=== PATIENT | female | born 1965 ===

== ENCOUNTER 2020-02-20 18:16 | Emergency (ER) | payer OTHER, SELFPAY ==
[2020-02-20 19:16] VITALS: BP 177/105; PULSE 90; RESP 16; TEMP 36.6; O2SAT 100; BMI 33.3
[2020-02-20 20:16] VITALS: BP 161/95; PULSE 84; RESP 18; TEMP 36.9; O2SAT 100
--- NOTE | 2020-02-20 20:29 | PC.NURSE ---
poc obtained per provider request, poc 99, provider notified
--- NOTE | 2020-02-20 20:30 | PC.NURSE ---
patient a&ox3, medicated with ativan per order, vss, patient notified she will be moving to [place] [address] and patient is ok with move, will continue to monitor.
[2020-02-20 20:31] LABS: Glucose, Whole Blood 99 mg/dL (60-115)
[2020-02-20] MEDS: LORazepam 1 MG TABLET PO (20:43)
--- NOTE | 2020-02-20 21:07 | ED.NEUROSD ---
HPI - Neuro Symptoms/Deficit General Chief Complaint: Neuro Symptoms/Deficit Stated Complaint: FACE TINGLING Time Seen by Provider: 02/20/20 20:12 Source: patient Mode of arrival: ambulatory Limitations: no limitations History of Present Illness HPI Narrative: patient history of anxiety complaining of nonspecific tingling sensation bilateral with cold clammy hands for last few hours no chest pain also complaining of headache no other neuro deficit no focal weakness no speech problem Onset (ago): hour(s) ( since noon) Related Data Previous Rx's Medication Instructions Recorded omeprazole 20 mg capsule,delayed 20 mg PO BID 90 Days #180 cap 01/23/20 release lisinopril 20 1 tab PO DAILY #90 tab 02/09/20 mg-hydrochlorothiazide 25 mg tablet simvastatin 10 mg tablet 10 mg PO BEDTIME #90 cap 02/17/20 Allergies Allergy/AdvReac Type Severity Reaction Status Date / Time No Known Allergies Allergy Unverified 01/08/20 15:29 [No Known Allergies*] Pt states no allergy to meds Allergy Unknown Uncoded 04/10/19 00:00 o Review of Systems Review of Systems: REVIEW OF SYSTEMS: Pertinent positives and negatives are stated above in the history. GEN: no fevers, chills, fatigue HEENT: no nasal congestion, sore throat, ear pain NEURO: no dizziness, focal weakness no cerebellar signs PULM: no cough, shortness of breath CV: no chest pain, palpitations, LE edema ABD: no abdominal pain, nausea, vomiting, diarrhea : no dysuria, urgency, frequency SKIN: no rash ROS otherwise negative x 10 PMFSH Past Medical History Medical History GERD (gastroesophageal reflux disease) HTN (hypertension) Surgical History H/O: Hx of breast reduction, elective LAP-BAND surgery status Social History Social History Alcohol intake: never Smoking Status: Never smoker Use of substances other than those prescribed or required for medical reasons: No Advance Directives: No Physical Exam Vital Signs: Vital Signs: Vital Signs Temp Pulse Resp BP Pulse Ox 02/20/20 22:27 97.7 F 82 18 158/89 H 98 02/20/20 20:16 98.5 F 84 18 161/95 H 100 02/20/20 19:16 97.9 F 90 16 177/105 H 100 Body Mass Index 33.3 VITAL SIGNS: Reviewed. GENERAL: Well developed, well nourished, in no acute distress. anxious++ HEAD: Normocephalic/atraumatic, EYES: PERRLA No pallor/icterus noted EARS: Ext canals without abnormality NOSE: Nares patent bilateral OROPHARYNX: Oral mucosa moist no oral lesions NECK: Supple, no adenopathy LUNGS: Normal breath sounds. No adventitious sounds or accessory muscle use CARDIOVASCULAR: Regular rate and rhythm without noted murmurs, no JVD or lower extremity edema. ABDOMEN: Soft, non-tender, non-distended with bowel sounds. No rigidity. No guarding. No palpable masses or hernias noted MUSCULOSKELETAL: No tenderness, deformities, EXTREMITIES: No cyanosis or edema. SKIN: no rashes, ulcerations, jaundice, pallor, or petechiae NEUROLOGIC: Alert and oriented x 3. Strength and sensation to light touch were grossly intact Course Course Course Narrative: patient's symptoms likely from anxiety improved after Ativan will give her Fioricet for headache and discharge her home MDM - Neuro Symptoms/Deficit Lab Data Labs: Lab Results 02/20/20 Range/Units 20:27 POC Glucose 99 (60-115) mg/dL Discharge Plan Discharge Clinical Impression: Anxiety Patient Disposition: Home, Self-Care Instructions: Anxiety (ED) Additional Instructions: rest at home continue take your medication for anxiety Prescriptions: No Action omeprazole 20 mg capsule,delayed release(DR/EC) 20 mg PO BID 90 Days Qty: 180 RF: 0 lisinopril-hydrochlorothiazide 20-25 mg tablet 1 tab PO DAILY Qty: 90 RF: 0 simvastatin 10 mg tablet 10 mg PO BEDTIME Qty: 90 RF: 1
[2020-02-20 22:27] VITALS: BP 158/89; PULSE 82; RESP 18; TEMP 36.5; O2SAT 98
== END 2020-02-20 23:54 | disposition home or self-care (01) ==
PROVIDERS: Emergency Provider Internal Medicine
DX: F41.1 Generalized anxiety disorder (principal); F43.0 Acute stress reaction; Z79.899 Other long term (current) drug therapy
CPT/HCPCS: 82947; 99283; 99284

== ENCOUNTER 2020-03-05 09:27 | Outpatient (REF) | payer OTHER, SELFPAY ==
[2020-03-09 19:21] LABS: HPV mRNA E6/E7 rflx Not Detected (Not Detected)
== END 2020-03-05 09:28 | disposition home or self-care (01) ==
LOC: HO.LAB 09:27
PROVIDERS: Visit Provider Obstetrics & Gynecology
DX: Z01.419 Encounter for gynecological examination (general) (routine) without abnormal findings (principal); Z11.51 Encounter for screening for human papillomavirus (HPV)
CPT/HCPCS: 87624; 87625; 88142

== ENCOUNTER 2020-04-05 09:52 | Outpatient (REF) | payer OTHER, SELFPAY ==
[2020-04-05 10:39] LABS: Hematocrit 34.6 % (37-47); Hemoglobin 10.9 g/dl (12.0-16.0); Mean Corpuscular HGB Conc 31.5 g/dl (31.0-35.0); Mean Corpuscular Hemoglobin 26.5 pg (27.0-33.0); Mean Platelet Volume 9.5 fL (9.4-12.3); Platelet Count 362 X10*3/uL (160-400); Red Blood Count 4.12 X10*6/uL (4.20-5.50); Red Cell Distribution Width 13.6 % (11.0-16.0); White Blood Count 6.6 X10*3/uL (4.8-10.8)
[2020-04-05 11:01] LABS: Influenza A PCR NEGATIVE (Negative); Influenza B PCR NEGATIVE (Negative); Resp Syncy Virus RNA Qual PCR NEGATIVE (Negative); SARS COV2 PCR INHOUSE NEGATIVE (Negative)
[2020-04-05 11:05] LABS: Glucose Urine UA NEG (NEG); Leukocyte Esterase Urine NEG (NEG); Nitrite Urine NEG (NEG); PH 5.5 (5.0-8.0); Specific Gravity - Urine >= 1.030 (1.005-1.025); Urine Blood NEG (NEG); Urine Ketones NEG (NEG); Urine Protein NEG (NEG-TRACE)
[2020-04-05 11:10] LABS: Alanine Aminotransferase 12 U/L (0-31); Albumin Level 4.4 g/dL (3.5-5.0); Alkaline Phosphatase 79 U/L (39-117); Anion Gap 12 (12-20); Aspartate Amino Transferase 19 U/L (5-31); Bilirubin Direct < 0.2 mg/dL (0.0-0.5); Bilirubin Total 0.3 mg/dL (0.0-1.0); Blood Urea Nitrogen 24 mg/dL (9-16); C Reactive Protein 1.14 mg/dL (< or = 0.50); Calcium 9.5 mg/dL (8.4-10.2); Carbon Dioxide 26 mmol/L (22-29); Chloride 109 mmol/L (96-108); Cholesterol 201 mg/dL; Estimated Glomerular Filt Rate 48; Glucose Random 90 mg/dL (60-115); HDL Cholesterol 68 mg/dL; LDL Cholesterol Calculated 111 mg/dl; Potassium 4.3 mmol/l (3.3-5.1); Sodium 143 mmol/L (135-145); Total Protein 7.2 g/dL (6.5-8.0); Triglycerides 111 mg/dL
[2020-04-05 11:12] LABS: Appearance Urine CLEAR; Color Urine YELLOW
[2020-04-05 11:34] LABS: Thyroid Stimulating Hormone 2.43 uIU/mL (0.32-4.0)
== END 2020-04-05 09:53 | disposition home or self-care (01) ==
LOC: HO.LAB 09:52
PROVIDERS: Visit Provider Internal Medicine
DX: M35.3 Polymyalgia rheumatica (principal); R43.9 Unspecified disturbances of smell and taste
CPT/HCPCS: 0241U; 36415; 80048; 80061; 80076; 81003; 84443; 85027; 86140

== ENCOUNTER 2020-05-06 11:08 | Outpatient (REF) | payer OTHER, SELFPAY ==
[2020-05-06 12:21] LABS: MANUAL DIFF FLAG NO
[2020-05-06 12:28] LABS: Basophils Percent Auto 0.5 % (0-2); Eosinophils Absolute Auto 0.1 X10*3/uL (0.0-0.4); Eosinophils Percent Auto 1.5 % (0-4); Hematocrit 31.8 % (37-47); Hemoglobin 9.9 g/dl (12.0-16.0); Imm Gran Abs Auto 0.01 X10*3/uL (0.00-0.03); Imm Gran Pct Auto 0.2 % (0.0-0.4); Immature Retic Fraction 14.3 % (3.0-15.9); Lymphocytes Absolute Auto 2.1 X10*3/uL (1.2-4.9); Lymphocytes Percent Auto 32.3 % (20-40); Mean Corpuscular HGB Conc 31.1 g/dl (31.0-35.0); Mean Corpuscular Hemoglobin 26.1 pg (27.0-33.0); Mean Corpuscular Volume 83.9 fL (80-98); Mean Platelet Volume 9.8 fL (9.4-12.3); Monocytes Absolute Auto 0.6 X10*3/uL (0.1-1.2); Monocytes Percent Auto 9.7 % (2-11); Neutrophils Absolute Auto 3.6 X10*3/uL (2.0-8.3); Neutrophils Percent Auto 55.8 % (45-73); Platelet Count 313 X10*3/uL (160-400); Red Blood Count 3.79 X10*6/uL (4.20-5.50); Red Cell Distribution Width 13.9 % (11.0-16.0); Retic HGB Equivalent 28.1 pg (30.0-35.0); Reticulocyte Percent 0.9 % (0.5-1.8); Reticulocytes Absolute 0.033 X10*6/uL (0.026-0.095); White Blood Count 6.5 X10*3/uL (4.8-10.8)
[2020-05-06 12:56] LABS: Iron 68 mcg/dL (30-160); Percent Iron Saturation 19 % (15-50); Total Iron Binding Capacity 350 mcg/dL (228-428); Unsaturated Iron Binding 282 ug/dL
[2020-05-06 13:20] LABS: Ferritin 5 ng/mL (10-250)
[2020-05-06 13:35] LABS: Folate > 20.0 ng/mL (> or = 4.0); Vitamin B12 578 pg/mL (200-900)
== END 2020-05-06 11:09 | disposition home or self-care (01) ==
LOC: HO.LAB 11:08
PROVIDERS: PCP Internal Medicine; Visit Provider Internal Medicine
DX: D64.9 Anemia, unspecified (principal)
CPT/HCPCS: 36415; 82607; 82728; 82746; 83540; 85025; 85045

== ENCOUNTER 2020-06-11 13:43 | Emergency (ER) | payer OTHER, SELFPAY ==
[2020-06-11 14:17] VITALS: BP 132/83; BP 146/86; PULSE 100; PULSE 85; RESP 18; TEMP 37; O2SAT 100; O2SAT 99; BMI 34.0
--- NOTE | 2020-06-11 14:25 | ECG_ITS ---
Test Reason : OVERDOSE Blood Pressure : / mmHG Vent. Rate : 080 BPM Atrial Rate : 080 BPM P-R Int : 126 ms QRS Dur : 078 ms QT Int : 278 ms P-R-T Axes : 033 -07 056 degrees QTc Int : 320 ms Normal sinus rhythm Nonspecific T wave abnormality Abnormal ECG When compared with ECG of 23-SEP-2019 10:18, Nonspecific T wave abnormality now evident in Inferior leads QT has shortened Referred By: Jackie Burrell Electronically Signed By:Walker Yepez
--- NOTE | 2020-06-11 14:53 | ED.MEDCLEAR ---
HPI - Medical Clearance General Chief complaint: Medical Clearance Stated complaint: feeling off after morning meds Time Seen by Provider: 06/11/20 14:19 Source: patient and EMS Mode of arrival: EMS History of Present Illness HPI Narrative: 54-year-old female past medical history of anxiety, depression,, GERD, hypertension, hyperlipidemia, obesity, PTSD, presenting to the ED reporting she may have accidentally doubled her morning doses of all of her medications. States she could not recall if she had previously taken her medications, was anxious at the time and then took them again. Denies this being purposeful ingestion, or knowing if she definitely doubled the medications. Her morning medications are: Hyzarr 20/25, Prilosec, Buproprio XL 300mg, Prozac 40mg, Abilify 7.5mg, Clonazepam 0.5mg, & Topiramate 100mg. Reports feeling lethargic and nauseaus now. denies CP/SOB, abd pain, ETOH or drug use Onset (ago): hour(s) Related Information Home Medications Medication Instructions Recorded Confirmed aripiprazole 5 mg tablet 7.5 mg PO DAILY 03/05/20 06/08/20 bupropion HCl 150 mg 24 hr tablet, 300 mg PO QAM 03/05/20 06/08/20 extended release prazosin 1 mg capsule 2 mg PO BEDTIME 03/05/20 06/08/20 quetiapine 25 mg tablet 50 mg PO BEDTIME 03/05/20 06/08/20 topiramate 100 mg tablet 100 mg PO BID 05/03/20 06/08/20 ascorbic acid (vitamin C) 500 mg PO DAILY 06/08/20 06/08/20 cholecalciferol (vitamin D3) 125 mcg PO DAILY 06/08/20 06/08/20 [Vitamin D3] clonazepam 0.5 mg PO DAILY PRN 06/08/20 06/08/20 fluoxetine [Prozac] 40 mg PO DAILY 06/08/20 06/08/20 hpttoetdzydt-urqdulsd-ommoof 1 tab PO DAILY 06/08/20 06/08/20 [Centrum Silver] Previous Rx's Medication Instructions Recorded lisinopril 20 1 tab PO DAILY #90 tab 02/09/20 mg-hydrochlorothiazide 25 mg tablet simvastatin 10 mg tablet 10 mg PO BEDTIME #90 cap 02/17/20 omeprazole 20 mg capsule,delayed 20 mg PO BID #180 cap 04/21/20 release ferrous sulfate 325 mg (65 mg 325 mg PO DAILY #30 tab 05/07/20 iron) tablet Allergies Allergy/AdvReac Type Severity Reaction Status Date / Time No Known Allergies Allergy Verified 05/04/20 05:20 [No Known Allergies*] Review of Systems Review of Systems: Constitutional: No Fever, No Chills, + Fatigue, No Malaise Cardiovascular: No Chest Pain, No SOB Respiratory: No Cough Gastrointestinal: + Nausea, No Vomiting, No Abdominal pain Musculoskeletal: No joint pain, No Myalgias, No Joint Swelling Skin: No Skin Lesions, No rash Neuro: +headache Psych: + Anxiety/Panic, No Depression Yes all other systems are reviewed and are negative [facility] Past Medical History Attestation statement: The following information was validated with the patient. Medical History (Updated 06/11/20 @ 18:41 by DUTCH Zhang) Anxiety and depression Cervical radiculopathy GERD (gastroesophageal reflux disease) HTN (hypertension) Hypercholesterolemia Impaired glucose tolerance Insomnia Obesity (BMI 30-39.9) PTSD (post-traumatic stress disorder) Vitamin D deficiency Surgical History H/O: History of carpal tunnel release History of colonoscopy History of excision of mass History of gastric surgery History of neck surgery History of removal of laparoscopic gastric banding device History of tubal ligation Hx of breast reduction, elective LAP-BAND surgery status Status post panniculectomy Family History Family History (Updated 05/03/20 @ 09:31 by Coral Nguyễn) Father Diabetes Mother High blood pressure High cholesterol Dementia Daughter Healthy female Social History Social History Household Members: Children Alcohol intake: never Smoking Status: Unknown if ever smoked Advance Directives: No Advance Directives Information Provided: No Physical Exam Vital Signs: Vital Signs: Last Vital Signs Temp 98.6 F 06/11/20 16:25 Pulse 77 06/11/20 16:25 Resp 18 06/11/20 16:25 BP 119/80 06/11/20 16:25 Pulse Ox 97 06/11/20 16:25 Body Mass Index 34.0 Const: General: cooperative and healthy appearing Orientation/consciousness: patient oriented x3 Limitations: no limitations HENMT: Head: Yes normal to inspection Ears: hearing grossly normal bilaterally General nose exam: Normal external nose present Face and sinus: Yes normal facial exam Eyes: General: appearance normal, both eyes and all related structures EOM: EOMs intact bilaterally Neck: Neck: Yes normal visual inspection Resp: Effort & Inspection: normal respiratory effort Cardio: Rate: regular rate GI: Inspection: Yes normal to inspection Palpation (GI): Soft to palpation, nontender, no guarding and not rigid Skin: Rashes: no rashes Wounds: no wounds Neuro: General: patient oriented x3, tone normal and moves all extremities Gait exam (Neuro): Normal gait present Extrem: General: Yes normal to inspection Course Course Course Narrative: - labs unremarkable, EKG unremarkable -1814--on re-evaluation patient sleeping comfortably, easily arousable, reports symptomatic improvement. Discussed with patient she should hold her nighttime dose of Seroquel, and hold her Wellbutrin x1 day, and resume normal prescribed medications again tomorrow. She is to follow-up with her PCP, she verbalized understanding and feels safe for discharge. Worrisome signs and symptoms and strict return precautions discussed. MDM - Medical Clearance MDM Narrative Medical decision making narrative: 54-year-old female past medical history of anxiety, depression,, GERD, hypertension, hyperlipidemia, obesity, PTSD, presenting to the ED reporting she may have accidentally doubled her morning doses of all of her medications. Reports now feeling lethargic and nauseaus. On exam VSS, NAD, awake, alert, NAD. Case discussed with Dr. Caldwell Will observe and reassess for prolonged QTc and check labs including LFTs Plan: EKG, labs, observe Medical Records Attestation: I reviewed the patient's medical records. Lab Data Attestation: I reviewed the patient's lab results. Result diagrams: 06/11/20 14:58 06/11/20 14:58 Labs: Lab Results 06/11/20 06/11/20 Range/Units 14:58 14:58 WBC 6.7 (4.8-10.8) X10*3/uL RBC 4.02 L (4.20-5.50) X10*6/uL Hgb 10.5 L (12.0-16.0) g/dl Hct 33.2 L (37-47) % MCV 82.6 (80-98) fL MCH 26.1 L (27.0-33.0) pg MCHC 31.6 (31.0-35.0) g/dl RDW 15.1 (11.0-16.0) % Plt Count 310 (160-400) X10*3/uL MPV 9.2 L (9.4-12.3) fL Immature Gran % (Auto) 0.3 (0.0-0.4) % Neut % (Auto) 61.2 (45-73) % Lymph % (Auto) 29.1 (20-40) % Payette % (Auto) 7.5 (2-11) % Eos % (Auto) 1.5 (0-4) % Baso % (Auto) 0.4 (0-2) % Lymph # (Auto) 1.9 (1.2-4.9) X10*3/uL Payette # (Auto) 0.5 (0.1-1.2) X10*3/uL Eos # (Auto) 0.1 (0.0-0.4) X10*3/uL Baso # (Auto) 0.0 (0.0-0.2) X10*3/uL Abs Immat Gran (auto) 0.02 (0.00-0.03) X10*3/uL Absolute Neuts (auto) 4.1 (2.0-8.3) X10*3/uL Absolute Nucleated RBC 0.000 (0.0-0.012) X10*3/uL Nucleated RBC % (auto) 0.0 (0.0-0.2) /100WBC Sodium 139 (135-145) mmol/L Potassium 4.1 (3.3-5.1) mmol/L Chloride 109 H (96-108) mmol/L Carbon Dioxide 26 (22-29) mmol/L Anion Gap 8 L (12-20) BUN 16 (9-16) mg/dL Creatinine 0.95 (0.5-1.4) mg/dL Estim Creat Clear Calc 67.3 Estimated GFR > 60 Random Glucose 100 (60-115) mg/dL Calcium 9.2 (8.4-10.2) mg/dL Magnesium 2.0 (1.6-2.6) mg/dL Total Bilirubin 0.3 (0.0-1.0) mg/dL Direct Bilirubin < 0.2 (0.0-0.5) mg/dL AST 21 (5-31) U/L ALT 16 (0-31) U/L Alkaline Phosphatase 82 (39-117) U/L Total Protein 6.8 (6.5-8.0) g/dL Albumin 4.1 (3.5-5.0) g/dL ECG Data Attestation: I personally reviewed and interpreted this ECG as follows: ECG interpretation date: 06/11/20 ECG interpretation time: 15:03 Interpretation: EKG NSR. QTc 320, no STEMI. Noninschemic Discharge Plan Discharge Clinical Impression: Accidental medication overdose Patient Disposition: Home, Self-Care Instructions: Medication Safety for Older Adults (ED) Additional Instructions: Hold your Wellbutrin for 1 day, tomorrow, then you may resume it on Sunday You may resume all of your other prescribed medications tomorrow Avoid taking more than home prescribed doses of medications. If you develop any heart racing, chest pain, shortness of breath, lethargy, abdominal pain, nausea or vomiting return to the ED immediately Make sure you follow-up with her doctor Prescriptions: No Action lisinopril-hydrochlorothiazide 20-25 mg tablet 1 tab PO DAILY Qty: 90 RF: 0 simvastatin 10 mg tablet 10 mg PO BEDTIME Qty: 90 RF: 1 omeprazole 20 mg capsule,delayed release(DR/EC) 20 mg PO BID Qty: 180 RF: 0 ferrous sulfate [FeroSul] 325 mg (65 mg iron) tablet 325 mg PO DAILY Qty: 30 RF: 3 clonazepam 0.5 mg Tablet 0.5 mg PO DAILY PRN (Reason: Anxiety) RF: 0 fluoxetine [Prozac] 20 mg Capsule 40 mg PO DAILY RF: 0 Centrum Silver Tablet 1 tab PO DAILY RF: 0 cholecalciferol (vitamin D3) [Vitamin D3] 125 mcg (5,000 unit) Tablet 125 mcg PO DAILY RF: 0 ascorbic acid (vitamin C) 500 mg Tablet 500 mg PO DAILY RF: 0 topiramate 100 mg tablet 100 mg PO BID RF: 0 bupropion HCl 150 mg tablet extended release 24 hr 300 mg PO QAM RF: 0 aripiprazole 5 mg tablet 7.5 mg PO DAILY RF: 0 quetiapine 25 mg tablet 50 mg PO BEDTIME RF: 0 prazosin 1 mg capsule 2 mg PO BEDTIME RF: 0 Referrals: Po,Demi Rendon MD [Primary Care Provider] - 2 days
[2020-06-11 15:02] LABS: MANUAL DIFF FLAG NO
[2020-06-11 15:06] LABS: Basophils Percent Auto 0.4 % (0-2); Eosinophils Absolute Auto 0.1 X10*3/uL (0.0-0.4); Eosinophils Percent Auto 1.5 % (0-4); Hematocrit 33.2 % (37-47); Hemoglobin 10.5 g/dl (12.0-16.0); Imm Gran Abs Auto 0.02 X10*3/uL (0.00-0.03); Imm Gran Pct Auto 0.3 % (0.0-0.4); Lymphocytes Absolute Auto 1.9 X10*3/uL (1.2-4.9); Lymphocytes Percent Auto 29.1 % (20-40); Mean Corpuscular HGB Conc 31.6 g/dl (31.0-35.0); Mean Corpuscular Hemoglobin 26.1 pg (27.0-33.0); Mean Corpuscular Volume 82.6 fL (80-98); Mean Platelet Volume 9.2 fL (9.4-12.3); Monocytes Absolute Auto 0.5 X10*3/uL (0.1-1.2); Monocytes Percent Auto 7.5 % (2-11); Neutrophils Absolute Auto 4.1 X10*3/uL (2.0-8.3); Neutrophils Percent Auto 61.2 % (45-73); Platelet Count 310 X10*3/uL (160-400); Red Blood Count 4.02 X10*6/uL (4.20-5.50); Red Cell Distribution Width 15.1 % (11.0-16.0); White Blood Count 6.7 X10*3/uL (4.8-10.8)
--- NOTE | 2020-06-11 15:38 | PC.NURSE ---
PLAN OF CARE - LABS AND EKG AND OBSERVATION. PT REMAINS IN NO DISTRESS. TALKING ON PHONE SINCE ARRIVAL
[2020-06-11 15:40] LABS: Alanine Aminotransferase 16 U/L (0-31); Albumin Level 4.1 g/dL (3.5-5.0); Alkaline Phosphatase 82 U/L (39-117); Anion Gap 8 (12-20); Aspartate Amino Transferase 21 U/L (5-31); Bilirubin Direct < 0.2 mg/dL (0.0-0.5); Bilirubin Total 0.3 mg/dL (0.0-1.0); Blood Urea Nitrogen 16 mg/dL (9-16); Calcium 9.2 mg/dL (8.4-10.2); Carbon Dioxide 26 mmol/L (22-29); Chloride 109 mmol/L (96-108); Creatinine Clr Calc Pharmacy 67.3; Estimated Glomerular Filt Rate > 60; Glucose Random 100 mg/dL (60-115); Potassium 4.1 mmol/L (3.3-5.1); Sodium 139 mmol/L (135-145); Total Protein 6.8 g/dL (6.5-8.0)
[2020-06-11 15:48] VITALS: BP 126/82; PULSE 71
[2020-06-11 16:25] VITALS: BP 119/80; PULSE 77; RESP 18; TEMP 37; O2SAT 97
== END 2020-06-11 18:56 | disposition home or self-care (01) ==
PROVIDERS: Physician Assistant; Emergency Provider Internal Medicine; PCP Internal Medicine
DX: T50.991A Poisoning by other drugs, medicaments and biological substances, accidental (unintentional), initial encounter (principal); I10 Essential (primary) hypertension; X58.XXXA Exposure to other specified factors, initial encounter; Z79.899 Other long term (current) drug therapy; Z98.84 Bariatric surgery status
CPT/HCPCS: 36415; 80048; 80076; 83735; 85025; 93005; 99283

== ENCOUNTER 2020-06-26 07:23 | Outpatient (REF) | payer OTHER, SELFPAY ==
[2020-06-26 08:33] LABS: Glucose Urine UA NEG (NEG); Leukocyte Esterase Urine NEG (NEG); Nitrite Urine NEG (NEG); PH 5.5 (5.0-8.0); Specific Gravity - Urine >= 1.030 (1.005-1.025); Urine Blood NEG (NEG); Urine Ketones NEG (NEG); Urine Protein NEG (NEG-TRACE)
[2020-06-26 08:35] LABS: Appearance Urine CLEAR; Color Urine YELLOW
[2020-06-26 08:52] LABS: Bacteria Urine TRACE /LPF; Mucus Urine 2+ /LPF; Squamous Epithelial Cell Urine 2+ /LPF
== END 2020-06-26 07:24 | disposition home or self-care (01) ==
LOC: HO.LAB 07:23
PROVIDERS: Visit Provider Internal Medicine
DX: N39.41 Urge incontinence (principal)
CPT/HCPCS: 81001

== ENCOUNTER 2020-06-29 08:45 | Outpatient (RCR) | payer OTHER, SELFPAY ==
[2020-06-08 12:32] VITALS: BMI 33.8
--- NOTE | 2020-06-08 12:52 | PC.ADMIT ---
Patient is a 54 year old female who was referred by her therapist to [facility] d/t patient increase in depression with passive SI, increase in anxiety, increase in PTSD sxs, feeling isolated, and multiple health issues that are causing increase in symptoms. Patient stated she is here d/t her, depression and anxiety, my PTSD symptoms are not good . Patient presents with depressed mood and anxious affect. Denied current SI. Gave verbal permission to email her a copy of her safety plan. Patient reports she is happy that she has a new PCP who is helping her with her medical issues. She is waiting for a referral to a Database Operator and a Bird Cage Assembler to get treatment regarding her pain issues. Patient stated she has Polyarthralgia, Polymyalgia, and planters fasciitis. Medications reconciled with patient and patient's pharmacy. She reports taking her medications as prescribed. t
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
--- NOTE | 2020-06-08 14:28 | PC.NURSE ---
Clients case opened in treatment team
--- NOTE | 2020-06-10 15:05 | PC.NURSE ---
I called and spoke with the clients therapist about client starting our program. Maddi Castellanos @ [facility] [phone]
--- NOTE | 2020-06-10 16:18 | PC.NURSE ---
I reviewed the tx plan with the client. She states that although she is anxious in group she is finding program helpful We went over goals and her last scheduled day will be 06/25/20
--- NOTE | 2020-06-11 13:51 | PC.NURSE ---
Addendum entered by Taylor Unger RN 06/11/20 14:11: In addition, Hannah stated her 26 year old daughter lives with her as well and is currently at work. I asked Hannah if her daugher could help her with her medications until she felt better and she stated she would ask her daughter to help her when she gets home. Patient stated an insurance person was looking into a visiting nurse for her however she has not heard back from anyone. Original Note: Staff told this policy writer sales that Hannah was c/o feeling tired and is having a difficult time staying awake. She also told staff that she may need to go to the emergency room as she is in a lot of pain and may need pain medications. In addition, she told staff that she thinks she may have accidentally took too many of her prescription medications. She requested that I call her. I called Hannah and asked her how she was feeling. She stated she just went to the bathroom and almost fell. She stated that she did not know if she took too many of her medications and is unsteady on her feet and she is unable to think straight. She also c/o feeling tired and is having difficulty staying awake. She was alert and oriented and breathing sounded normal. I told her I would call an ambulance as a precaution and patient ageed. Patient stated that her 19 year old son was with her. I called 911 and gave them the above information including her current prescription medications. I called Hannah back and stayed on the phone with her until the ambulance arrived. Mary Petersen programmer analyst and Vianney Holley prescriber are aware.
--- NOTE | 2020-06-14 19:51 | HO.PHPPROGNO ---
Subjective Subjective Date of Service: 06/14/20 Reason For Visit: depression Interim History: Pt discussed an accidential overdose on 06/11-took a.m. meds x 2. Did have ER evaluation and was discharged. Currently reports she is using a medicine box-she is not having her daughter help with meds. She discussed this being an accident, not an attempt to harm herself. Reports some suicidal thoughts at times, with no plan and no intent, with Sunday's accident not being intentional in any way. Sleep is interrupted with latency and DARIEN sx however less nightmares with recent increase of Prazosin. Appetite is poor. Pt reports eating junk with significant weight gain from this and from Seroquel 147-250 lbs. Medically reports pain-stiff neck, arms are stiff-requests a call to PCP to ask for eval and possibly PT referral. Call to Dr. Lr [phone] with message left. They will contact pt. Pt reports increase of Prazosin to be helpful, she has completely stopped Topiramate and continues with Klonopin 0.5 mg daily (we reviewed risks/benefits and half-life issues which may effect pt) Medication Compliance: Yes Side effects from medications: Yes (wt gain from Seroquel, asks for a change) Attending Groups: Yes Review of Systems Reports neck pain Musculoskeletal: Reports arthralgias and Reports neck pain Comments: -Chronic pain -polymyalgia -stiff neck and arms Psychiatric: Reports abnormal sleep pattern, Reports change in appetite, Reports difficulty concentrating, Reports hopelessness and Reports suicidal ideation (denies current SI plan or intent) Mental Status Exam Mental Status Exam Patient Appearance: Appropriate Patient Orientation: Person, Place, Time and Situation Level of Consciousness: Awake and Alert Patient Behavior: Appropriate and Hypersexual Mood Description: Anxious Affect Description: Flat Patient Cognition Impaired: No Ability to Follow Directions: Good Speech Pattern: Spontaneous Speech Memory Description: Intact Hallucinations: None Delusions: Not Present Thought Process: Intact Thought Content: positive for Intact Depressive Symptoms: Increased Anxiety, Difficulty Sleeping, Changes in Appetite, Loss of Int. in Activity, Unhappiness, Increased Fatigue and Thoughts of /Suicide (denies SI plan or intent) Judgement: Good Diagnostics Vital Signs (24Hr): Body Mass Index 33.8 Assessment & Plan Assessment & Plan (1) PTSD (post-traumatic stress disorder): Status: Acute Code(s): F43.10 - Post-traumatic stress disorder, unspecified Assessment and Plan: -DC Seroquel -Geodon 20 mg hs trial-pt request as she is concerned about med SE with increased weight having effect on health. (2) Anxiety and depression: Status: Acute Code(s): F41.9 - Anxiety disorder, unspecified; F32.9 - Major depressive disorder, single episode, unspecified (3) Neck pain: Status: Acute Code(s): M54.2 - Cervicalgia (4) Polyarthralgia: Status: Acute Code(s): M25.50 - Pain in unspecified joint (5) Polymyalgia: Status: Acute Code(s): M35.3 - Polymyalgia rheumatica Certification I certify that partial hospital treatment is medically necessary due to the symptoms and problems resulting from the patient's mental illness and the failure to treat the patient at the partial hospital level of care would likely result in the patient requiring inpatient psychiatric care which could not be prevented at a less intensive level of care. Greater than 50% of the session was spent on counseling and/or coordination of care Discharge Plan Discharge Attending provider: Den Mark Primary Care Provider: Demi Lr Medications: New ziprasidone HCl [Geodon] 20 mg capsule 20 mg PO BEDTIME Qty: 10 RF: 0 Discontinued topiramate 100 mg tablet 100 mg PO BID RF: 0 quetiapine 25 mg tablet 50 mg PO BEDTIME RF: 0 No Action lisinopril-hydrochlorothiazide 20-25 mg tablet 1 tab PO DAILY Qty: 90 RF: 0 simvastatin 10 mg tablet 10 mg PO BEDTIME Qty: 90 RF: 1 omeprazole 20 mg capsule,delayed release(DR/EC) 20 mg PO BID Qty: 180 RF: 0 ferrous sulfate [FeroSul] 325 mg (65 mg iron) tablet 325 mg PO DAILY Qty: 30 RF: 3 clonazepam 0.5 mg Tablet 0.5 mg PO DAILY PRN (Reason: Anxiety) RF: 0 fluoxetine [Prozac] 20 mg Capsule 40 mg PO DAILY RF: 0 Centrum Silver Tablet 1 tab PO DAILY RF: 0 cholecalciferol (vitamin D3) [Vitamin D3] 125 mcg (5,000 unit) Tablet 125 mcg PO DAILY RF: 0 ascorbic acid (vitamin C) 500 mg Tablet 500 mg PO DAILY RF: 0 bupropion HCl 150 mg tablet extended release 24 hr 300 mg PO QAM RF: 0 aripiprazole 5 mg tablet 7.5 mg PO DAILY RF: 0 prazosin 1 mg capsule 2 mg PO BEDTIME RF: 0 Referrals: Po,Demi Rendon MD [Primary Care Provider] - Telehealth Telehealth Location of provider rendering services: practice address Location of patient: address on file Patient Identification confirmed using: Name, : Yes Telehealth method: video Patient verbally consented to treatment: Yes Patient verbally consented to billing insurance company: Yes Patient informed of any privacy concerns related to visit: Yes Time spent with patient (mins): 15
--- NOTE | 2020-06-15 09:40 | PC.NURSE ---
Patient took an accidental overdose of her medications last Sunday. She stated she got confused last Sunday as she did not remember taking her morning medications and took them again. Patient went to the ED for evaluation afterwards. Spoke to patient and patient gave this marketing writer verbal permission to speak to her daughter Debo to ask her if she could monitor patient's medication administration until patient is feeling more stable. Spoke to Debo who agreed to monitor patient's medications until her mother is feeling more stable. Called patient's PCP's office of Dr Lr and spoke to Josy. Awaiting a call back from a nurse to discuss referral for VNA services for medication management. Also inquired about PT services for patient and Josy stated they were working on Physical Therapy referrals for the patient and the office spoke to the patient regarding the referrals this morning.
--- NOTE | 2020-06-15 10:15 | PC.NURSE ---
Spoke to Irena RN from patient's PCP's office and notified her that patient had an accidental overdose on her prescription medications last Sunday and reviewed the need for a referral from Dr Lr for VNA services for medication management. Irena will review with Dr Lr and will contact patient with f/u information.
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
--- NOTE | 2020-06-21 16:49 | HO.PHPPROGNO ---
Subjective Subjective Date of Service: 06/21/20 Reason For Visit: depression Interim History: Pt reports improved sleep. She reports less nightmares with prazosin. She also notes that speech (finding words, cognitive fogginess) better without topamax. She reports feeling less anxious, less depressed. She denies SI/HI. She was started on geodon last week by CÉSAR Weienr- we discussed d/cing abilify to avoid polypharmacy. Pt agreed to stop abilify and continue geodone. She reports groups have been beneficial as she hears others have had similar experiences. Review of Systems Reports neck pain Musculoskeletal: Reports arthralgias and Reports neck pain Psychiatric: Reports abnormal sleep pattern, Reports change in appetite, Reports difficulty concentrating, Reports hopelessness and Reports suicidal ideation (denies current SI plan or intent) Mental Status Exam Mental Status Exam Narrative: Appearance: casually groomed, good hygiene, in NAD Behavior: calm, cooperative Psychomotor: no agitation or retardation noted Speech: clear, normal rate/rhythm/volume, spontaneous TP: linear TC: no signs of psychosis, less hopeless/less depressed, no SI/HI. SI: none HI: none VH/AH: none Delusions: none Mood: better Affect: brighter, non labile Insight/judgment: fair x 2. Memory/cog: alert, oriented x 3. grossly intact to conversational testing. Diagnostics Vital Signs (24Hr): Body Mass Index 33.8 Assessment & Plan Assessment & Plan (1) PTSD (post-traumatic stress disorder): Status: Acute Code(s): F43.10 - Post-traumatic stress disorder, unspecified Assessment and Plan: -DC Seroquel due to weight gain - Continue Geodon 20 mg hs trial-pt request as she is concerned about med SE with increased weight having effect on health. - d/c abilify (2) Anxiety and depression: Status: Acute Code(s): F41.9 - Anxiety disorder, unspecified; F32.9 - Major depressive disorder, single episode, unspecified (3) Neck pain: Status: Acute Code(s): M54.2 - Cervicalgia (4) Polyarthralgia: Status: Acute Code(s): M25.50 - Pain in unspecified joint (5) Polymyalgia: Status: Acute Code(s): M35.3 - Polymyalgia rheumatica Certification I certify that partial hospital treatment is medically necessary due to the symptoms and problems resulting from the patient's mental illness and the failure to treat the patient at the partial hospital level of care would likely result in the patient requiring inpatient psychiatric care which could not be prevented at a less intensive level of care. Greater than 50% of the session was spent on counseling and/or coordination of care Discharge Plan Discharge Attending provider: Den Mark Primary Care Provider: Demi Lr Medications: Continued ziprasidone HCl [Geodon] 20 mg capsule 20 mg PO BEDTIME 30 Days Qty: 15 RF: 0 prazosin 1 mg capsule 3 mg PO BEDTIME 15 Days Qty: 45 RF: 0 Discontinued topiramate 100 mg tablet 100 mg PO BID RF: 0 aripiprazole 5 mg tablet 7.5 mg PO DAILY RF: 0 quetiapine 25 mg tablet 50 mg PO BEDTIME RF: 0 No Action lisinopril-hydrochlorothiazide 20-25 mg tablet 1 tab PO DAILY Qty: 90 RF: 0 simvastatin 10 mg tablet 10 mg PO BEDTIME Qty: 90 RF: 1 omeprazole 20 mg capsule,delayed release(DR/EC) 20 mg PO BID Qty: 180 RF: 0 ferrous sulfate [FeroSul] 325 mg (65 mg iron) tablet 325 mg PO DAILY Qty: 30 RF: 3 clonazepam 0.5 mg Tablet 0.5 mg PO DAILY PRN (Reason: Anxiety) RF: 0 fluoxetine [Prozac] 20 mg Capsule 40 mg PO DAILY RF: 0 Centrum Silver Tablet 1 tab PO DAILY RF: 0 cholecalciferol (vitamin D3) [Vitamin D3] 125 mcg (5,000 unit) Tablet 125 mcg PO DAILY RF: 0 ascorbic acid (vitamin C) 500 mg Tablet 500 mg PO DAILY RF: 0 meloxicam 7.5 mg tablet 7.5 mg PO DAILY Qty: 30 RF: 1 bupropion HCl 150 mg tablet extended release 24 hr 300 mg PO QAM RF: 0 Referrals: Demi Lr MD [Primary Care Provider] - Telehealth Telehealth Location of provider rendering services: practice address Location of patient: address on file Patient Identification confirmed using: Name, : Yes Telehealth method: video Patient verbally consented to treatment: Yes Patient verbally consented to billing insurance company: Yes Patient informed of any privacy concerns related to visit: Yes Time spent with patient (mins): 15
--- NOTE | 2020-06-23 13:25 | PC.NURSE ---
Patient stated she needs refills of Prazosin and Ziprasidone. In addition, she stated she called her Prescriber to refill her Clonazepam however she has not received a phone call back. Vianney LINDSEY aware of refills needed. Patient also stated that she forgot Vianney Dick NP told her to stop taking the Aripiprazole and accidently took it this morning. Patient identified the Aripiprazole tablet and took it out of her pill organizer. Vianney Dick NP is aware, no medication changes,continue current regime.
--- NOTE | 2020-06-23 13:40 | PC.NURSE ---
Emmie Holley FRUIT CUTTER aware of refills needed for Prazosin and Ziprasidone and asked that patient contract her prescriber regarding the Clonazepam. Spoke to Hannah and she is aware.
--- NOTE | 2020-06-25 08:26 | PC.NURSE ---
The client called out. She was up all last night. She will be in Sunday
--- NOTE | 2020-06-25 12:27 | PC.NURSE ---
Patient stated she spoke to Dr Lr however did not talk about VNA services. I called Irena RN from Dr Lr's office and asked if they made referral to VNA. Irena stated referral was made for Physical Therapy however she did not see referral for VNA. I gave Irena information about [facility] as they are accepting new patients and also take patient's insurance. I faxed over medication list with medication changes made at [facility] program to Dr Lr's office.
--- NOTE | 2020-06-28 14:43 | HO.PHPPROGNO ---
Subjective Subjective Date of Service: 06/28/20 Reason For Visit: depression Interim History: Pt reports sleep is improved, nightmares have markedly decreased which has decreased anxiety and stress. Pt denies SI, HI and speech has returned to normal with discontinuation of Topiramate. Pt reports having more morning energy due to being able to sleep through the night and any anxiety I have feels managable . Appetite is increased as well. Denies SI, HI and feels she has had benefit from the program. Medication Compliance: Yes Side effects from medications: No Attending Groups: Yes Review of Systems Review of Systems Yes all other systems are reviewed and are negative (denies) Psychiatric: Reports change in appetite (increase) Mental Status Exam Mental Status Exam Patient Appearance: Appropriate Patient Orientation: Person, Place, Time and Situation Level of Consciousness: Awake and Alert Patient Behavior: Appropriate, Talkative and Cooperative Mood Description: Calm and Cheerful Affect Description: Calm and Flat Patient Cognition Impaired: No Ability to Follow Directions: Good Speech Pattern: Clear and Spontaneous Speech Memory Description: Intact Hallucinations: None Delusions: Not Present Thought Process: Intact Thought Content: positive for Intact Depressive Symptoms: Changes in Appetite (increase) Judgement: Good Diagnostics Vital Signs (24Hr): Body Mass Index 33.8 Assessment & Plan Assessment & Plan (1) PTSD (post-traumatic stress disorder): Status: Acute Code(s): F43.10 - Post-traumatic stress disorder, unspecified Assessment and Plan: -Continue current regime -Plans to complete PHP 06/29/20 (2) Anxiety and depression: Status: Acute Code(s): F41.9 - Anxiety disorder, unspecified; F32.9 - Major depressive disorder, single episode, unspecified Certification I certify that partial hospital treatment is medically necessary due to the symptoms and problems resulting from the patient's mental illness and the failure to treat the patient at the partial hospital level of care would likely result in the patient requiring inpatient psychiatric care which could not be prevented at a less intensive level of care. Greater than 50% of the session was spent on counseling and/or coordination of care Discharge Plan Discharge Attending provider: Den Mark Primary Care Provider: PoDemi Medications: Continued prazosin 1 mg capsule 3 mg PO BEDTIME 15 Days Qty: 45 RF: 1 ziprasidone HCl [Geodon] 20 mg capsule 20 mg PO BEDTIME 30 Days Qty: 15 RF: 1 Discontinued topiramate 100 mg tablet 100 mg PO BID RF: 0 aripiprazole 5 mg tablet 7.5 mg PO DAILY RF: 0 quetiapine 25 mg tablet 50 mg PO BEDTIME RF: 0 No Action lisinopril-hydrochlorothiazide 20-25 mg tablet 1 tab PO DAILY Qty: 90 RF: 0 simvastatin 10 mg tablet 10 mg PO BEDTIME Qty: 90 RF: 1 omeprazole 20 mg capsule,delayed release(DR/EC) 20 mg PO BID Qty: 180 RF: 0 ferrous sulfate [FeroSul] 325 mg (65 mg iron) tablet 325 mg PO DAILY Qty: 30 RF: 3 clonazepam 0.5 mg Tablet 0.5 mg PO DAILY PRN (Reason: Anxiety) RF: 0 fluoxetine [Prozac] 20 mg Capsule 40 mg PO DAILY RF: 0 Centrum Silver Tablet 1 tab PO DAILY RF: 0 cholecalciferol (vitamin D3) [Vitamin D3] 125 mcg (5,000 unit) Tablet 125 mcg PO DAILY RF: 0 ascorbic acid (vitamin C) 500 mg Tablet 500 mg PO DAILY RF: 0 meloxicam 7.5 mg tablet 7.5 mg PO DAILY Qty: 30 RF: 1 bupropion HCl 150 mg tablet extended release 24 hr 300 mg PO QAM RF: 0 Referrals: Po,Demi Rendon MD [Primary Care Provider] - Telehealth Telehealth Location of provider rendering services: practice address Location of patient: address on file Patient Identification confirmed using: Name, : Yes Telehealth method: video Patient verbally consented to treatment: Yes Patient verbally consented to billing insurance company: Yes Patient informed of any privacy concerns related to visit: Yes Time spent with patient (mins): 25
--- NOTE | 2020-06-29 15:05 | PC.NURSE ---
I called and left a message for the clients therapist Maddi Castellanos RE client has been discharged from [facility]
== END 2020-06-29 23:55 | disposition home or self-care (01) ==
LOC: HO.PHPA 08:45
PROVIDERS: PCP Internal Medicine; Visit Provider Psychiatry & Neurology Psychiatry
DX: F43.10 Post-traumatic stress disorder, unspecified (principal); F41.9 Anxiety disorder, unspecified; F32.9 Major depressive disorder, single episode, unspecified; Z79.899 Other long term (current) drug therapy
CPT/HCPCS: 90791; 90853

== ENCOUNTER 2020-07-22 19:49 | Emergency (ER) | payer OTHER, SELFPAY ==
[2020-07-22 19:57] VITALS: BP 191/91; PULSE 83; RESP 18; TEMP 36.7; O2SAT 99; BMI 35.8
--- NOTE | 2020-07-22 21:50 | PC.NURSE ---
PT USED HYDROGEN PEROXIDE CLEANING SOLUTION ON HER CONTACT LENSES AND FORGOT TO RINSE IT OFF THEM THIS HAPPENED AT 11:30 AM PT USED SALINE TO RINSE OUT EYE BUT EYES STILL BURNING.
--- NOTE | 2020-07-22 22:21 | PC.NURSE ---
PH TEST DONE BY DUTCH DUNN. R EYE 8 AND LEFT EYE 8.5 ODELL LENSE STARTED TO BILATERAL EYE PT TOLERATING WELL.
[2020-07-22] MEDS: Fluorescein Sodium STRIP 1 STRIP EYE-BOTH (23:10)
[2020-07-22] MEDS: Ibuprofen 600 MG TABLET PO (23:10)
[2020-07-22] MEDS: Tetracaine HCl/PF 0.5% Oph Sol 4 ML DROPS 3 DROP EYE-BOTH (23:11)
--- NOTE | 2020-07-22 23:59 | PC.NURSE ---
[facility] RECHECKED EYES AND PH WAS 7 TO RIGHT EYE AND 8B TO LEFT EYE DUTCH DUNN WANTS TO FLUSH LEFT EYE WITH NORMAL SALINE.
--- NOTE | 2020-07-23 00:23 | PC.NURSE ---
D[facility]CH DUNN REFUSED EYES PH RIGHT 7 AND LEFT EYE 7.5.
--- NOTE | 2020-07-23 01:03 | ED.EYEPROB ---
HPI - Eye Problem General Chief complaint: Eye Problems Stated complaint: SUBSTANCE IN EYE Time Seen by Provider: 07/22/20 21:28 Source: patient Mode of arrival: ambulatory History of Present Illness HPI Narrative: 55yo Female with a past medical history of hyperlipidemia, insomnia, anxiety, depression, cervical radiculopathy, obesity, PTSD, presenting to the ED complaining of bilateral eye burning/irritation s/p accidentally putting contact cleanser (3% hydrogen peroxide cleaning and disinfecting lens care system) into eyes instead of contact drops. Admits to washing eyes out this morning without symptomatic relief. Reports burning, photophobia, tearing, and erythema. Denies known trauma/injury, foreign body, visual loss, blurry vision. MD chief complaint: eye pain and eye redness Related Data Home Medications Medication Instructions Recorded Confirmed bupropion HCl 150 mg 24 hr tablet, 300 mg PO QAM 03/05/20 06/17/20 extended release ascorbic acid (vitamin C) 500 mg PO DAILY 06/08/20 06/17/20 cholecalciferol (vitamin D3) 125 mcg PO DAILY 06/08/20 06/17/20 [Vitamin D3] clonazepam 0.5 mg PO DAILY PRN 06/08/20 06/17/20 fluoxetine [Prozac] 40 mg PO DAILY 06/08/20 06/17/20 [id number] 1 tab PO DAILY 06/08/20 06/17/20 [Centrum Silver] Previous Rx's Medication Instructions Recorded simvastatin 10 mg tablet 10 mg PO BEDTIME #90 cap 02/17/20 omeprazole 20 mg capsule,delayed 20 mg PO BID #180 cap 04/21/20 release ferrous sulfate 325 mg (65 mg 325 mg PO DAILY #30 tab 05/07/20 iron) tablet meloxicam 7.5 mg tablet 7.5 mg PO DAILY #30 tab 06/17/20 prazosin 3 mg PO BEDTIME #21 cap 06/28/20 ziprasidone HCl [Geodon] 20 mg PO BEDTIME 30 Days #15 cap 06/28/20 lisinopril 20 1 tab PO DAILY #90 cap 07/13/20 mg-hydrochlorothiazide 25 mg tablet Allergies Allergy/AdvReac Type Severity Reaction Status Date / Time No Known Allergies Allergy Verified 05/04/20 05:20 [No Known Allergies*] Review of Systems Review of Systems: Constitutional:No Fever, No Chills ENT/Mouth: No Hearing loss, No Ear Pain, No Hoarseness, No sore throat Eyes: + Eye Pain, No Swelling, + Redness, No Foreign Body, + Discharge, No Vision Changes Gastrointestinal: No Nausea, No Vomiting Skin: No Skin Lesions, No rash Neuro: + Headache Yes all other systems are reviewed and are negative Eyes: Eyes: Reports photophobia PMFSH Past Medical History Attestation statement: The following information was validated with the patient. Medical History (Updated 07/23/20 @ 01:03 by DUTCH Zhang) Anxiety and depression Cervical radiculopathy GERD (gastroesophageal reflux disease) HTN (hypertension) Hypercholesterolemia Impaired glucose tolerance Insomnia Obesity (BMI 30-39.9) PTSD (post-traumatic stress disorder) Vitamin D deficiency Surgical History H/O: History of carpal tunnel release History of colonoscopy History of excision of mass History of gastric surgery History of neck surgery History of removal of laparoscopic gastric banding device History of tubal ligation Hx of breast reduction, elective LAP-BAND surgery status Status post panniculectomy Family History Family History (Updated 05/03/20 @ 09:31 by Coral Nguyễn) Father Diabetes Mother High blood pressure High cholesterol Dementia Daughter Healthy female Social History Social History (Updated 06/17/20 @ 13:01 by Shy Fay [facility]) Household Members: Children Alcohol intake: never Smoking Status: Former smoker Smoked in Last 30 Days: No Use of substances other than those prescribed or required for medical reasons: No Advance Directives: No Advance Directives Information Provided: Yes Physical Exam Vital Signs: Vital Signs: Last Vital Signs Temp 98.0 F 07/22/20 19:57 Pulse 83 07/22/20 19:57 Resp 18 07/22/20 19:57 BP 191/91 H 07/22/20 19:57 Pulse Ox 99 07/22/20 19:57 Body Mass Index 35.8 Const: General: cooperative, healthy appearing, comfortable, well developed, alert and awake Orientation/consciousness: patient oriented x3 Limitations: no limitations HENMT: Head: Yes normal to inspection Ears: hearing grossly normal bilaterally General nose exam: Normal external nose present Face and sinus: Yes normal facial exam Eyes: Other: Visual acuity 20/50 right eye, 20/70 left eye General: appearance normal, both eyes and all related structures Periorbital: periorbital findings normal Eyelids: Yes eyelids normal Conjunctivae: conjunctival abnormal bilateral conjunctival injection and discharge (clear) Corneas: fluorescein used (No fluorescein uptake) EOM: EOMs intact bilaterally Direct Ophthalmoscopy: photophobia Neck: Neck: Yes normal visual inspection and Yes no meningeal signs Resp: Effort & Inspection: normal respiratory effort Auscultation: clear to auscultation bilaterally Cardio: Rate: regular rate Skin: Rashes: no rashes Wounds: no wounds Neuro: General: patient oriented x3 and no meningeal signs Gait exam (Neuro): Normal gait present Extrem: General: Yes normal to inspection Course Course Course Narrative: -initial pH in the right eye 8, left eye 8.5 > Oseas's lens initiated in bilateral eyes -repeat pH right eye 7, left eye 8 >> patient refuses repeat Oseas lens, did not believe she can tolerate, I irrigated with normal saline > repeat eye pH after extensive irrigation right eye 7.5 the left eye 7 -pH remained consistent after 30 minutes. Worrisome signs and symptoms and strict return precautions discussed with patient. Stressed continued irrigation at home. Patient verbalized understanding and feels safe for discharge home to follow-up with ophthalmology as soon as possible MDM - Eye Problem MDM Narrative Medical decision making narrative: 55yo Female with a past medical history of hyperlipidemia, insomnia, anxiety, depression, cervical radiculopathy, obesity, PTSD, presenting to the ED complaining of bilateral eye burning/irritation s/p accidentally putting contact cleanser into eyes instead of contact drops. On exam VSS, NAD, physical exam as above, bilateral conjunctival injection/irritation. Visual acuity as above. Fluorescein stain used in both eyes without uptake. No evidence of ulceration or globe rupture. Likely, chemical exposure will check pH Discharge Plan Discharge Clinical Impression: Chemical exposure of eye Patient Disposition: Home, Self-Care Instructions: Eye Wash (Into the eye) Additional Instructions: It is very important that you continue to irrigate her eyes at home, every 1-2 hours You need to follow-up with ornamental plasterer helper as soon as possible Do not wear contacts and into follow-up with the specialist If here burning sensation persists or worsens, becomes unbearable, you develop visual change/loss, constant persistent tearing, fever, headaches return to the ED Prescriptions: No Action simvastatin 10 mg tablet 10 mg PO BEDTIME Qty: 90 RF: 1 omeprazole 20 mg capsule,delayed release(DR/EC) 20 mg PO BID Qty: 180 RF: 0 ferrous sulfate [FeroSul] 325 mg (65 mg iron) tablet 325 mg PO DAILY Qty: 30 RF: 3 lisinopril-hydrochlorothiazide 20-25 mg tablet 1 tab PO DAILY Qty: 90 RF: 1 clonazepam 0.5 mg Tablet 0.5 mg PO DAILY PRN (Reason: Anxiety) RF: 0 fluoxetine [Prozac] 20 mg Capsule 40 mg PO DAILY RF: 0 Centrum Silver Tablet 1 tab PO DAILY RF: 0 cholecalciferol (vitamin D3) [Vitamin D3] 125 mcg (5,000 unit) Tablet 125 mcg PO DAILY RF: 0 ascorbic acid (vitamin C) 500 mg Tablet 500 mg PO DAILY RF: 0 ziprasidone HCl [Geodon] 20 mg capsule 20 mg PO BEDTIME 30 Days Qty: 15 RF: 1 prazosin 1 mg capsule 3 mg PO BEDTIME Qty: 21 RF: 1 meloxicam 7.5 mg tablet 7.5 mg PO DAILY Qty: 30 RF: 1 bupropion HCl 150 mg tablet extended release 24 hr 300 mg PO QAM RF: 0 Referrals: Librado John [Physician] - 2 days
--- NOTE | 2020-07-23 01:06 | PC.NURSE ---
DUTCH DUNN RECHECKED EYES AND PH HELD AT 7 BILATERALLY.
== END 2020-07-23 01:18 | disposition home or self-care (01) ==
PROVIDERS: Emergency Provider Internal Medicine; PCP Internal Medicine
DX: H57.13 Ocular pain, bilateral (principal); T49.5X1A Poisoning by ophthalmological drugs and preparations, accidental (unintentional), initial encounter; T26.92XA Corrosion of left eye and adnexa, part unspecified, initial encounter; T26.91XA Corrosion of right eye and adnexa, part unspecified, initial encounter; Y93.89 Activity, other specified; Y92.012 Bathroom of single-family (private) house as the place of occurrence of the external cause; Y99.9 Unspecified external cause status
CPT/HCPCS: 99284

== ENCOUNTER 2020-08-11 11:00 | Outpatient (RCR) | payer OTHER, SELFPAY ==
[2020-07-02 10:06] VITALS: BP 143/90; PULSE 74
--- NOTE | 2020-07-02 15:49 | MHC.PT.EP ---
[facility] [place] [facility] [place] [facility] [place] [facility] [address] Luz Green [address] [phone] F: [phone] F: [phone] F: [phone] F: [phone] Physical Therapy Plan of Care Date of Evaluation: 07/02/20 Date of Surgery: NA Diagnosis: CERVICALGIA Assessment: Hannah arrives with c/c of henok shoulder and neck pain, worsening recently. Hannah has recently been involved in our partial hospitalization program for PTSD and depression as well. Upon exam she demonstrates impairments of decreased cervical and shoulder ROM, decreased strength of henok shoulders and upper back, altered posture and positioning, decreased soft tissue mobility, increased pain. Functional limitations include decreased ability to perform lifting, reaching, carrying. She reports decreased ability to perform ADLs, homemaking tasks. She reports decreased participation in community and fitness activities, disrupted sleep. Frequency and Duration: The patient will be seen 2 x week for 6 weeks Short Term Goals: Initiate HEP and self management of symptoms Usp Goals: Independent with HEP and self management of symptoms Full pain free ROM of henok shoulders and neck To tolerate lifting 5# object to shoulder height without pain greater than 2/10 Treatment Plan: Modalities to reduce pain, spasms and effusion. Manual therapy to restore motion and function. Therapeutic exercise to improve strength and flexibility. Neuromuscular re-education for posture and balance. Therapeutic activities to return to functional activities of daily living. Electronically signed by: ADRIANA GARCIA PT, DPT Please sign and return to therapist. Thank you for your referral.
--- NOTE | 2020-08-17 09:47 | MHC.PT.DC ---
[facility] [place] Office [place] Office [place] Office [address] [phone] F: [phone] F: [phone] F: [phone] F: [phone] Physical Therapy Discharge Report Diagnosis: CERVICALGIA Date of Surgery: NA Date of Evaluation: 07/02/20 Date of Discharge: 08/12/20 Treatments to Date: 8 Cancellations to Date: 0 No Shows to Date: 0 Discharge Status: Achieved Goals Improved Function Independent with HEP Discharge Summary: KAREL PROGRESSED WELL IN THERAPY AND DEMONSTRATES IMPROVED CERVICAL ROM, IMPROVED STRENGTH OF UPPER EXTREMITIES AND UPPER BACK, INCREASED THORACIC SPINE MOBILITY AND SCAPULAR STABILITY. HER PAIN LEVELS HAVE DECREASED AND SHE HAS RETURNED TO ALL FUNCTIONAL ACTIVITIES AT HOME. THE CLIENT REPORTS INDEPENDENCE WITH CURRENT HEP AND IS CONFIDENT IN CONTINUING INDEPENDENTLY AT HOME AT THIS TIME. Electronically signed by: ADRIANA GARCIA PT, DPT Please sign and return to therapist. Thank you for your referral.
== END 2020-08-17 09:57 | disposition other institution (70) ==
LOC: HO.PT 11:00
PROVIDERS: PCP Internal Medicine; Visit Provider Internal Medicine
DX: M54.2 Cervicalgia (principal)
CPT/HCPCS: 97110; 97140; 97162; 97530

== ENCOUNTER → 2020-08-11 13:32 | Outpatient (BNVA) | payer OTHER, SELFPAY | PROVIDERS: PCP Internal Medicine; Visit Provider Physician Assistant | DX: E66.9 Obesity, unspecified (principal); K91.2 Postsurgical malabsorption, not elsewhere classified; Z90.3 Acquired absence of stomach [part of]; Z68.35 Body mass index [BMI] 35.0-35.9, adult; Z98.84 Bariatric surgery status | CPT/HCPCS: 99202 ==

== ENCOUNTER 2020-08-14 08:59 | Outpatient (REF) | payer OTHER, SELFPAY ==
[2020-08-14 09:42] LABS: MANUAL DIFF FLAG NO
[2020-08-14 09:47] LABS: Basophils Percent Auto 0.2 % (0-2); Eosinophils Absolute Auto 0.2 X10*3/uL (0.0-0.4); Eosinophils Percent Auto 1.9 % (0-4); Hematocrit 36.4 % (37-47); Hemoglobin 11.5 g/dl (12.0-16.0); Imm Gran Abs Auto 0.03 X10*3/uL (0.00-0.03); Imm Gran Pct Auto 0.4 % (0.0-0.4); Immature Retic Fraction 16.2 % (3.0-15.9); Lymphocytes Percent Auto 24.3 % (20-40); Mean Corpuscular HGB Conc 31.6 g/dl (31.0-35.0); Mean Corpuscular Hemoglobin 26.3 pg (27.0-33.0); Mean Corpuscular Volume 83.1 fL (80-98); Mean Platelet Volume 9.6 fL (9.4-12.3); Monocytes Absolute Auto 0.6 X10*3/uL (0.1-1.2); Monocytes Percent Auto 7.4 % (2-11); Neutrophils Absolute Auto 5.4 X10*3/uL (2.0-8.3); Neutrophils Percent Auto 65.8 % (45-73); Platelet Count 344 X10*3/uL (160-400); Red Blood Count 4.38 X10*6/uL (4.20-5.50); Red Cell Distribution Width 14.4 % (11.0-16.0); Retic HGB Equivalent 29.2 pg (30.0-35.0); Reticulocyte Percent 1.6 % (0.5-1.8); Reticulocytes Absolute 0.068 X10*6/uL (0.026-0.095); White Blood Count 8.3 X10*3/uL (4.8-10.8)
[2020-08-14 10:34] LABS: Iron 59 mcg/dL (30-160); Percent Iron Saturation 16 % (15-50); Total Iron Binding Capacity 359 mcg/dL (228-428); Unsaturated Iron Binding 300 ug/dL
[2020-08-14 10:38] LABS: Estimated Average Glucose 111 mg/dL; Hemoglobin A1c % 5.5 %
[2020-08-14 10:52] LABS: Ferritin 19 ng/mL (10-250)
[2020-08-14 11:15] LABS: Erythrocyte Sedimentation Rate 14 MM/HR (0-20)
[2020-08-16 08:03] LABS: Folate 15.4 ng/mL (> or = 4.0); Vitamin B12 605 pg/mL (200-900)
[2020-08-17 16:26] LABS: Zinc 63 mcg/dL (60-130)
[2020-08-18 23:22] LABS: Vitamin A 48 mcg/dL (38-98)
[2020-08-19 07:26] LABS: Vitamin B1 15 nmol/L (8-30)
== END 2020-08-14 09:00 | disposition home or self-care (01) ==
LOC: HO.LAB 08:59
PROVIDERS: PCP Internal Medicine; Visit Provider Physician Assistant
DX: K91.2 Postsurgical malabsorption, not elsewhere classified (principal); E66.9 Obesity, unspecified; Z68.35 Body mass index [BMI] 35.0-35.9, adult; D64.9 Anemia, unspecified; M25.50 Pain in unspecified joint; Z90.3 Acquired absence of stomach [part of]; Z98.84 Bariatric surgery status
CPT/HCPCS: 36415; 82306; 82607; 82728; 82746; 83036; 83540; 84425; 84590; 84630; 85025; 85045; 85652

== ENCOUNTER 2020-08-17 09:56 | Outpatient (REF) | payer OTHER, SELFPAY ==
--- NOTE | ~2020-08-17 | FL_ITS ---
EXAMINATION: XR FLUOROSCOPY UPPER GI WITH AIR CLINICAL INFORMATION: Obesity. COMPARISON: CT abdomen and pelvis 01/26/2016. TECHNIQUE: Gastric and esophageal distention was achieved with oral administration of water and effervescent granules. This was followed by the administration of thick barium contrast material. Multiple images the esophagus were obtained in the upright LPO and lateral projections. The patient was then placed in the horizontal position and multiple additional views of the esophagus and stomach were obtained during and after the oral administration of regular consistency barium material. FLUOROSCOPY TIME: 0.9 minutes TOTAL DOSE: 155.8 mGy IMAGES: 63 FINDINGS: The swallowing mechanism is grossly normal. There is no evidence of an esophageal mass, diverticulum, ulceration, or fixed stricture. Mucosal surfaces are unremarkable. The lower esophageal sphincter relaxes normally. Multiple projections of the stomach reveal chronic changes of a sleeve gastrectomy. There is a moderate-sized sliding hiatal hernia. There is no ulceration or intraluminal mass. Rugal folds are unremarkable. There is esophageal dysmotility with interruption of the secondary stripping wave. No tertiary contractions were visualized however, possibly secondary to overdistention with gas. Gastroesophageal reflux was observed to the cervical esophagus with minimal provocation in the supine position. FL/FL upper GI series IMPRESSION: There are chronic postoperative changes of a sleeve gastrectomy. There is a moderately sized sliding hiatal hernia. Esophageal dysmotility with interruption of the secondary stripping wave. Gastroesophageal reflux was observed the level of the cervical esophagus with minimal provocation in supine position.
== END 2020-08-17 09:57 | disposition home or self-care (01) ==
LOC: HO.XRAY 09:56
PROVIDERS: Visit Provider Physician Assistant
DX: Z01.818 Encounter for other preprocedural examination (principal); E66.9 Obesity, unspecified; K21.9 Gastro-esophageal reflux disease without esophagitis; Z98.84 Bariatric surgery status; Z68.35 Body mass index [BMI] 35.0-35.9, adult
CPT/HCPCS: 74240

== ENCOUNTER 2020-08-27 13:02 | Outpatient (REF) | payer OTHER, SELFPAY ==
--- NOTE | ~2020-08-27 | XR_ITS ---
EXAMINATION: XR CERVICAL SPINE CLINICAL INFORMATION: Pain COMPARISON: None TECHNIQUE: 3 views of the cervical spine were obtained. FINDINGS: Bone alignment is normal. No fracture or dislocation is seen. There is degenerative spondylosis and mild disc space narrowing at C5-C6. Disc spaces are otherwise normal. Prevertebral soft tissues anterior to see 5 and C6 are upper normal. XR/XR cervical spine 2V IMPRESSION: Degenerative spondylosis and degenerative disc disease at C5-C6. Upper normal thickness prevertebral soft tissues at these levels.
--- NOTE | ~2020-08-27 | XR_ITS ---
EXAMINATION: XR SHOULDER, RIGHT CLINICAL INFORMATION: Pain COMPARISON: None TECHNIQUE: AP external rotation, Grashey, scapular Y, and axillary views of the right shoulder. FINDINGS: The bones and soft tissues are normal. No fracture. Glenohumeral and acromioclavicular alignment is anatomic with normal joint space. No abnormal soft tissue calcifications. XR/XR shoulder RT min 2V IMPRESSION: Normal right shoulder.
--- NOTE | ~2020-08-27 | XR_ITS ---
EXAMINATION: XR ANKLE, LEFT CLINICAL INFORMATION: Pain COMPARISON: None TECHNIQUE: AP, lateral, and mortise views of the left ankle. FINDINGS: Bone alignment is normal. No fracture or dislocation is seen. Joint spaces are normal. There are calcaneal spurs. Soft tissues are otherwise unremarkable. XR/XR ankle LT min 3V IMPRESSION: Calcaneal spurs.
[2020-08-27 14:46] LABS: Blood Urea Nitrogen 16 mg/dL (9-16); C Reactive Protein 0.86 mg/dL (< or = 0.50); Rheumatoid Factor 20.4 IU/mL (<15.0)
[2020-08-27 15:15] LABS: Erythrocyte Sedimentation Rate 16 MM/HR (0-20)
[2020-08-28 05:11] LABS: Lyme Abs Screen <0.90 index
[2020-08-28 14:01] LABS: Anti Nuclear Antibody Screen NEGATIVE (NEGATIVE)
[2020-08-29 17:46] LABS: Cyclic Citrullinated Peptide <16 UNITS
[2020-08-30 14:57] LABS: Cardiolipin IgG Ab <14 GPL; Cardiolipin IgM Ab <12 MPL; PTT (LAC) Screen 25 sec (< OR = 40)
== END 2020-08-27 13:03 | disposition home or self-care (01) ==
LOC: HO.LAB 13:02
PROVIDERS: PCP Internal Medicine; Visit Provider Student in an Organized Health Care Education/Training Program
DX: M25.50 Pain in unspecified joint (principal)
CPT/HCPCS: 36415; 72040; 73030; 73610; 84443; 84520; 85597; 85613; 85652; 85730; 86038; 86039; 86140; 86147; 86200; 86431; 86617; 86618; 99202

== ENCOUNTER → 2020-09-14 10:49 | Outpatient (BNVA) | payer OTHER, SELFPAY | PROVIDERS: Visit Provider Student in an Organized Health Care Education/Training Program | DX: M25.50 Pain in unspecified joint (principal) | CPT/HCPCS: 99212 ==

== ENCOUNTER 2020-11-12 13:00 | Outpatient (RCR) | payer OTHER, SELFPAY ==
--- NOTE | 2020-10-27 16:31 | MHC.PT.EP ---
[facility] [place] Office [place] Office [place] Office [address] [phone] F: [phone] F: [phone] F: [phone] F: [phone] Physical Therapy Plan of Care Date of Evaluation: Date of Surgery: NA Diagnosis: CERVICALGIA Assessment: Pt IS 55 YO F RECENTLY SEEN IN PT FOR SAME ISSUE (8 VISITS WITH GOOD RESULTS. MET GOALS, HEP). Pt REPORTS NECK HAS BEEN FEELING GOOD AND IS STILL DOING SOME OF THE EXS. Pt REPORTS NOT SURE WHY THE CHEF'S ASSISTANT HAS SENT HER BACK TO PT (ALTHOUGH SHE REPORTS SHE WAS IN PAIN AT TIME OF MD APPT AND LIMPING). REPORTS SINCE MD APPT AND TAKING MEDS, HER PAIN IN HER NECK IS 0 AND SHE IS ABLE TO COMPLETE ALL ADLS WITHOUT ISSUE. DISCUSSED PT WITH Pt AND HAVE DECIDED TO REV HOME PROG AND HAVE 1 FU (TO DC IF CONTINUES SX FREE). Pt WITH SOME POSTURAL DEFICITS NOTED ON EVAL Frequency and Duration: The patient will be seen 1-2 VISITS Short Term Goals: 1. I HEP WITH DC EX PLAN 2. 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 Manual therapy to restore motion and function. Therapeutic exercise to improve strength and flexibility. Neuromuscular re-education for posture and balance. Therapeutic activities to return to functional activities of daily living. Electronically signed by: GWYN HERNANDEZ PT Please sign and return to therapist. Thank you for your referral.
--- NOTE | 2020-11-12 13:43 | MHC.PT.DC ---
[facility] [place] Office [place] Office [place] Office [address] [phone] F: [phone] F: [phone] F: [phone] F: [phone] Physical Therapy Discharge Report Diagnosis: CERVICALGIA Date of Surgery: NA Date of Evaluation: 10/27/20 Date of Discharge: 11/12/20 Treatments to Date: 2 Cancellations to Date: No Shows to Date: Discharge Status: Achieved Goals Independent with HEP Discharge Summary: Pt CONTINUES WITHOUT C/O NECK PAIN OR ADL LIMITATION. GOOD PERF STRETCHES AND EXS. REPORTS TO START WALKING MORE WITH HER SON AND MAY START BIKING (REPORTS HAS LOST 15 LBS ALREADY) Electronically signed by: GWYN HERNANDEZ PT Please sign and return to therapist. Thank you for your referral.
== END 2020-11-12 13:44 | disposition home or self-care (01) ==
LOC: HO.PT 13:00
PROVIDERS: PCP Internal Medicine; Visit Provider Student in an Organized Health Care Education/Training Program
DX: M25.50 Pain in unspecified joint (principal)
CPT/HCPCS: 97110; 97161

== ENCOUNTER 2020-12-31 08:25 | Outpatient (REF) | payer OTHER, SELFPAY ==
[2020-12-31 09:12] LABS: MANUAL DIFF FLAG NO
[2020-12-31 09:17] LABS: Basophils Percent Auto 0.4 % (0-2); Eosinophils Absolute Auto 0.1 X10*3/uL (0.0-0.4); Eosinophils Percent Auto 1.8 % (0-4); Hematocrit 36.7 % (37-47); Hemoglobin 11.8 g/dl (12.0-16.0); Imm Gran Abs Auto 0.01 X10*3/uL (0.00-0.03); Imm Gran Pct Auto 0.1 % (0.0-0.4); Immature Retic Fraction 8.4 % (3.0-15.9); Lymphocytes Absolute Auto 1.8 X10*3/uL (1.2-4.9); Lymphocytes Percent Auto 24.5 % (20-40); Mean Corpuscular HGB Conc 32.2 g/dl (31.0-35.0); Mean Corpuscular Hemoglobin 27.4 pg (27.0-33.0); Mean Corpuscular Volume 85.2 fL (80-98); Mean Platelet Volume 10.2 fL (9.4-12.3); Monocytes Absolute Auto 0.6 X10*3/uL (0.1-1.2); Monocytes Percent Auto 7.7 % (2-11); Neutrophils Absolute Auto 4.8 X10*3/uL (2.0-8.3); Neutrophils Percent Auto 65.5 % (45-73); Platelet Count 285 X10*3/uL (160-400); Red Blood Count 4.31 X10*6/uL (4.20-5.50); Red Cell Distribution Width 15.9 % (11.0-16.0); Retic HGB Equivalent 31.7 pg (30.0-35.0); Reticulocyte Percent 1.1 % (0.5-1.8); Reticulocytes Absolute 0.047 X10*6/uL (0.026-0.095); White Blood Count 7.3 X10*3/uL (4.8-10.8)
[2020-12-31 09:27] LABS: Estimated Average Glucose 111 mg/dL; Hemoglobin A1c % 5.5 %
[2020-12-31 09:37] LABS: Alanine Aminotransferase 20 U/L (0-31); Albumin Level 4.6 g/dL (3.5-5.0); Alkaline Phosphatase 66 U/L (39-117); Anion Gap 14 (12-20); Aspartate Amino Transferase 23 U/L (5-31); Bilirubin Total 0.6 mg/dL (0.0-1.0); Blood Urea Nitrogen 12 mg/dL (9-16); Calcium 10.1 mg/dL (8.4-10.2); Carbon Dioxide 28 mmol/L (22-29); Chloride 105 mmol/L (96-108); Cholesterol 152 mg/dL; Estimated Glomerular Filt Rate 47; Glucose Random 100 mg/dL (60-115); HDL Cholesterol 58 mg/dL; Iron 44 mcg/dL (30-160); LDL Cholesterol Calculated 70 mg/dl; Percent Iron Saturation 16 % (15-50); Potassium 4.3 mmol/L (3.3-5.1); Sodium 143 mmol/L (135-145); Total Iron Binding Capacity 268 mcg/dL (228-428); Total Protein 6.7 g/dL (6.5-8.0); Triglycerides 121 mg/dL; Unsaturated Iron Binding 224 ug/dL
[2020-12-31 10:01] LABS: Ferritin 73 ng/mL (10-250); Free T4 (Free Thyroxine) 0.92 ng/dL (0.71-1.85); Thyroid Stimulating Hormone 1.69 uIU/mL (0.32-4.0); Vitamin D 25-OH Total 91.9 ng/mL (>30)
[2020-12-31 10:23] LABS: Folate 15.6 ng/mL (> or = 4.0); Vitamin B12 711 pg/mL (200-900)
== END 2020-12-31 08:26 | disposition home or self-care (01) ==
LOC: HO.LAB 08:25
PROVIDERS: PCP Internal Medicine; Visit Provider Internal Medicine
DX: E78.00 Pure hypercholesterolemia, unspecified (principal); D64.9 Anemia, unspecified; R73.02 Impaired glucose tolerance (oral); Z98.84 Bariatric surgery status
CPT/HCPCS: 36415; 80053; 80061; 82306; 82607; 82728; 82746; 83036; 83540; 84439; 84443; 85025; 85045

== ENCOUNTER 2021-01-13 13:21 | Emergency (ER) | payer OTHER, SELFPAY ==
[2021-01-13 14:24] VITALS: BP 123/73; PULSE 77; RESP 18; TEMP 36.9; O2SAT 100; BMI 29.4
[2021-01-13 14:51] LABS: MANUAL DIFF FLAG NO
[2021-01-13 14:52] LABS: Basophils Percent Auto 0.3 % (0-2); Eosinophils Absolute Auto 0.1 X10*3/uL (0.0-0.4); Eosinophils Percent Auto 1.6 % (0-4); Hematocrit 34.2 % (37-47); Hemoglobin 11.1 g/dl (12.0-16.0); Imm Gran Abs Auto 0.01 X10*3/uL (0.00-0.03); Imm Gran Pct Auto 0.2 % (0.0-0.4); Lymphocytes Percent Auto 32.1 % (20-40); Mean Corpuscular HGB Conc 32.5 g/dl (31.0-35.0); Mean Corpuscular Hemoglobin 27.8 pg (27.0-33.0); Mean Corpuscular Volume 85.5 fL (80-98); Mean Platelet Volume 9.3 fL (9.4-12.3); Monocytes Absolute Auto 0.6 X10*3/uL (0.1-1.2); Monocytes Percent Auto 8.9 % (2-11); Neutrophils Absolute Auto 3.5 X10*3/uL (2.0-8.3); Neutrophils Percent Auto 56.9 % (45-73); Platelet Count 278 X10*3/uL (160-400); Red Cell Distribution Width 15.4 % (11.0-16.0); White Blood Count 6.2 X10*3/uL (4.8-10.8)
[2021-01-13 15:11] LABS: Alanine Aminotransferase 24 U/L (0-31); Albumin Level 4.4 g/dL (3.5-5.0); Alkaline Phosphatase 65 U/L (39-117); Anion Gap 12 (12-20); Aspartate Amino Transferase 27 U/L (5-31); Bilirubin Total 0.3 mg/dL (0.0-1.0); Blood Urea Nitrogen 10 mg/dL (9-16); Calcium 9.8 mg/dL (8.4-10.2); Carbon Dioxide 28 mmol/L (22-29); Chloride 104 mmol/L (96-108); Creatinine Clr Calc Pharmacy 44.1; Estimated Glomerular Filt Rate 41; Glucose Random 95 mg/dL (60-115); Potassium 4.5 mmol/L (3.3-5.1); Sodium 139 mmol/L (135-145); Total Protein 6.7 g/dL (6.5-8.0)
[2021-01-13 15:14] LABS: Appearance Urine HAZY; Color Urine YELLOW; Glucose Urine UA NEG (NEG); Leukocyte Esterase Urine NEG (NEG); Nitrite Urine NEG (NEG); Specific Gravity - Urine 1.015 (1.005-1.025); Urine Blood NEG (NEG); Urine Ketones 5 MG/DL (NEG); Urine Protein NEG (NEG-TRACE)
--- NOTE | 2021-01-13 17:34 | ED.NAVMDI ---
HPI - Nausea/Vomiting/Diarrhea General Chief complaint: Nausea/Vomiting/Diarrhea Stated complaint: VOMITING Time Seen by Provider: 01/13/21 17:26 Source: patient and family Mode of arrival: ambulatory Limitations: no limitations History of Present Illness HPI Narrative: 55-year-old female came in for evaluation of vomiting started about 6 weeks ago, patient was seen and evaluated by her PCP. No blood in the vomitus, patient otherwise declined fever, chills, abdominal pain, chest pain, diarrhea. Patient now feels better able to tolerate p.o. intake in the emergency department. Related Data Home Medications Medication Instructions Recorded Confirmed bupropion HCl 150 mg 24 hr tablet, 300 mg PO QAM 03/05/20 12/22/20 extended release cholecalciferol (vitamin D3) 125 125 mcg PO DAILY 06/08/20 12/22/20 mcg (5,000 unit) tablet (Vitamin D3) clonazepam 0.5 mg tablet 0.5 mg PO DAILY PRN 06/08/20 12/22/20 fluoxetine 20 mg capsule (Prozac) 40 mg PO DAILY 06/08/20 12/22/20 bosavberjjpr-paefbvch-yinqua tablet 1 tab PO DAILY 06/08/20 12/22/20 calcium carbonate 500 mg calcium 500 mg PO DAILY 08/11/20 12/22/20 (1,250 mg) chewable tablet (Calcium 500) prazosin 1 mg capsule 1 mg PO BEDTIME cap 12/22/20 Previous Rx's Medication Instructions Recorded ziprasidone HCl 20 mg capsule 20 mg PO BEDTIME 30 Days #15 cap 06/28/20 (Geodon) simvastatin 10 mg tablet 10 mg PO BEDTIME #90 cap 08/08/20 ascorbic acid (vitamin C) 500 mg 500 mg PO DAILY #30 cap 08/28/20 tablet (Vitamin C) ferrous sulfate 325 mg (65 mg 325 mg PO DAILY #30 cap 08/28/20 iron) tablet meloxicam 7.5 mg tablet 7.5 mg PO DAILY #30 cap 12/10/20 promethazine 25 mg tablet 25 mg PO TID PRN #20 tab 12/22/20 lisinopril 20 1 tab PO DAILY #90 cap 01/10/21 mg-hydrochlorothiazide 25 mg tablet omeprazole 20 mg capsule,delayed 20 mg PO BID #180 cap 01/10/21 release omeprazole magnesium 20 mg 20 mg PO BID #30 tab 01/13/21 tablet,delayed release (Prilosec OTC) ondansetron HCl 4 mg tablet 4 mg PO Q8H PRN #10 tab 01/13/21 (Zofran) Allergies Allergy/AdvReac Type Severity Reaction Status Date / Time No Known Allergies Allergy Verified 01/13/21 14:23 [No Known Allergies*] Review of Systems Review of Systems: All other systems are reviewed and are negative Constitutional: Reports as per HPI and Reports no additional constitutional complaints Eyes: Reports as per HPI and Reports no additional eye complaints Reports system reviewed and no additional complaints, except as documented Cardiovascular: Reports as per HPI and Reports no additional cardiovascular complaints Respiratory: Reports as per HPI and Reports no additional respiratory complaints Gastrointestinal: Reports as per HPI and Reports no additional gastrointestinal complaints Genitourinary: Reports no additional female genitourinary complaints Musculoskeletal: Reports no additional musculoskeletal complaints Skin/Breast: Reports system reviewed and no additional complaints, except as docu Psychiatric: Reports no additional psychiatric complaints Endocrine: Reports no additional endocrine complaints Hematologic/Lymphatic: Reports no additional hematologic/lymphatic complaints Allergic/Immunologic: Reports no additional allergic/immunologic complaints Reports system reviewed and no additional complaints, except as documented and Reports Abnormal speech present [facility] Past Medical History Medical History Anxiety and depression BMI 35.0-35.9,adult Cervical radiculopathy Difficulty sleeping GERD (gastroesophageal reflux disease) HTN (hypertension) Hypercholesterolemia Hypersomnolence Impaired glucose tolerance Insomnia Intestinal malabsorption following gastrectomy Obesity (BMI 30-39.9) PTSD (post-traumatic stress disorder) Snoring Vitamin D deficiency Weight gain following gastric bypass surgery Surgical History H/O: History of carpal tunnel release History of colonoscopy History of excision of mass History of gastric surgery History of neck surgery History of removal of laparoscopic gastric banding device History of tubal ligation Hx of abdominoplasty Hx of breast reduction, elective LAP-BAND surgery status S/P laparoscopic sleeve gastrectomy Status post panniculectomy Family History Family History Father Diabetes Mother High blood pressure High cholesterol Dementia Daughter Healthy female Son No problems noted. Son High blood pressure High cholesterol Social History Social History Household Members: Children Housing: House Alcohol intake: never Patient Tobacco Use Status: Former Tobacco user Tobacco use type: Cigarette Years Smoked: stopped 1989 Advance Directives: No Advance Directives Information Provided: Yes service: No Current occupational status: unemployed Physical Exam Vital Signs: Vital Signs: Last Vital Signs Temp 98.5 F 01/13/21 14:24 Pulse 77 01/13/21 14:24 Resp 18 01/13/21 14:24 BP 123/73 01/13/21 14:24 Pulse Ox 100 01/13/21 14:24 Body Mass Index 29.4 Vital signs have been reviewed as appeared to be correct. Blood pressure normal. Heart rate normal. Respiration rate normal. Temperature normal. Oxygen saturation normal. Appearance: Alert. Oriented X3. No acute distress. Head: Normal external exam. Normocephalic. Atraumatic. No [place] signs noted. No raccoon eyes noted Eyes: PERRLA. EOMI. Conjunctiva and sclera normal. Eyelids normal. ENT: TM's Normal. Pharynx normal. Uvula midline. Moist mucous membranes. No trismus noted. No drooling noted. No muffled voice noted. Neck: Normal inspection. Neck supple. FROM. No adenopathy. Thyroid Normal. No meningeal signs. No neck mass noted. CVS: Normal heart rate and rhythm. Heart sound normal. No murmurs noted. Pulses normal throughout. Respiratory: No respiratory distress. Painless inspiration. Breath sounds normal. No wheezes/rales/rhonchi noted. Chest nontender. No accessory muscle usage noted or decreased air movement noted. Abdomen: Soft and nontender. Bowel sounds normal in all 4 quadrants. No distention noted. No organomegaly noted. No visible injury noted. Back: No CVA tenderness. Full range of motion noted. Skin: Skin warm and dry. Normal skin color. Normal skin turgor. No rashes/lesions/lacerations noted. Extremities: No lower extremity edema. Extremities exhibit normal range of motion. Extremities nontender. Neuro: Oriented X 3. Cranial nerve exam: II-XII are grossly intact No motor deficit. No sensory deficit. Reflexes normal. Course Course Course Narrative: Assessment and plan. 55-year-old female came in for evaluation of nausea and vomiting for 1 month, patient has unremarkable labs in the emergency department. Will discharge patient on Prilosec/Zofran and follow-up with health and safety advisor for possible upper endoscopy. MDM - Nausea/Vomiting/Diarrhea Lab Data Attestation: I reviewed the patient's lab results. Result diagrams: 01/13/21 14:46 01/13/21 14:46 Labs: Lab Results 01/13/21 01/13/21 01/13/21 Range/Units 14:43 14:46 14:46 WBC 6.2 (4.8-10.8) X10*3/uL RBC 4.00 L (4.20-5.50) X10*6/uL Hgb 11.1 L (12.0-16.0) g/dl Hct 34.2 L (37-47) % MCV 85.5 (80-98) fL MCH 27.8 (27.0-33.0) pg MCHC 32.5 (31.0-35.0) g/dl RDW 15.4 (11.0-16.0) % Plt Count 278 (160-400) X10*3/uL MPV 9.3 L (9.4-12.3) fL Immature Gran % (Auto) 0.2 (0.0-0.4) % Neut % (Auto) 56.9 (45-73) % Lymph % (Auto) 32.1 (20-40) % [place] % (Auto) 8.9 (2-11) % Eos % (Auto) 1.6 (0-4) % Baso % (Auto) 0.3 (0-2) % Lymph # (Auto) 2.0 (1.2-4.9) X10*3/uL [place] # (Auto) 0.6 (0.1-1.2) X10*3/uL Eos # (Auto) 0.1 (0.0-0.4) X10*3/uL Baso # (Auto) 0.0 (0.0-0.2) X10*3/uL Abs Immat Gran (auto) 0.01 (0.00-0.03) X10*3/uL Absolute Neuts (auto) 3.5 (2.0-8.3) X10*3/uL Absolute Nucleated RBC 0.000 (0.0-0.012) X10*3/uL Nucleated RBC % (auto) 0.0 (0.0-0.2) /100WBC Sodium 139 (135-145) mmol/L Potassium 4.5 (3.3-5.1) mmol/L Chloride 104 (96-108) mmol/L Carbon Dioxide 28 (22-29) mmol/L Anion Gap 12 (12-20) BUN 10 (9-16) mg/dL Creatinine 1.33 (0.5-1.4) mg/dL Estim Creat Clear Calc 44.1 Estimated GFR 41 Random Glucose 95 (60-115) mg/dL Calcium 9.8 (8.4-10.2) mg/dL Total Bilirubin 0.3 (0.0-1.0) mg/dL AST 27 (5-31) U/L ALT 24 (0-31) U/L Alkaline Phosphatase 65 (39-117) U/L Total Protein 6.7 (6.5-8.0) g/dL Albumin 4.4 (3.5-5.0) g/dL Urine Color YELLOW Urine Appearance HAZY Urine pH 6.0 (5.0-8.0) Ur Specific [place] 1.015 (1.005-1.025) Urine Protein NEG (NEG-TRACE) MG/DL Urine Glucose (UA) NEG (NEG) MG/DL Urine Ketones 5 (NEG) MG/DL Urine Blood NEG (NEG) Urine Nitrite NEG (NEG) Ur Leukocyte Esterase NEG (NEG) Discharge Plan Discharge Clinical Impression: Vomiting Qualifiers: Vomiting Intractability: unspecified Nausea presence: with nausea Patient Disposition: Home, Self-Care Instructions: Gastritis (ED) Prescriptions: New omeprazole magnesium [Prilosec OTC] 20 mg tablet,delayed release (DR/EC) 20 mg PO BID Qty: 30 RF: 0 ondansetron HCl [Zofran] 4 mg tablet 4 mg PO Q8H PRN (Reason: nausea and vomiting) Qty: 10 RF: 0 No Action simvastatin 10 mg tablet 10 mg PO BEDTIME Qty: 90 RF: 0 ferrous sulfate 325 mg (65 mg iron) tablet 325 mg PO DAILY Qty: 30 RF: 3 ascorbic acid (vitamin C) [Vitamin C] 500 mg tablet 500 mg PO DAILY Qty: 30 RF: 3 meloxicam 7.5 mg tablet 7.5 mg PO DAILY Qty: 30 RF: 1 omeprazole 20 mg capsule,delayed release(DR/EC) 20 mg PO BID Qty: 180 RF: 1 lisinopril-hydrochlorothiazide 20-25 mg tablet 1 tab PO DAILY Qty: 90 RF: 1 clonazepam 0.5 mg Tablet 0.5 mg PO DAILY PRN (Reason: Anxiety) RF: 0 fluoxetine [Prozac] 20 mg Capsule 40 mg PO DAILY RF: 0 Centrum Silver Tablet 1 tab PO DAILY RF: 0 cholecalciferol (vitamin D3) [Vitamin D3] 125 mcg (5,000 unit) Tablet 125 mcg PO DAILY RF: 0 ziprasidone HCl [Geodon] 20 mg capsule 20 mg PO BEDTIME 30 Days Qty: 15 RF: 1 prazosin 1 mg capsule 1 mg PO BEDTIME RF: 0 promethazine 25 mg tablet 25 mg PO TID PRN (Reason: nausea and vomiting) Qty: 20 RF: 0 bupropion HCl 150 mg tablet extended release 24 hr 300 mg PO QAM RF: 0 calcium carbonate [Calcium 500] 500 mg calcium (1,250 mg) tablet,chewable 500 mg PO DAILY RF: 0 Referrals: Marco Antonio Royal MD [Physician] - 2 days Po,Demi Rendon MD [Primary Care Provider] - 2 days
[2021-01-13 18:06] LABS: UPreg QC Valid YES; Urine Pregnancy NEGATIVE (NEGATIVE)
[2021-01-13 18:14] VITALS: BP 122/80; PULSE 77; RESP 13; O2SAT 95
== END 2021-01-13 18:16 | disposition home or self-care (01) ==
PROVIDERS: Emergency Provider Emergency Medicine; PCP Internal Medicine
DX: K29.00 Acute gastritis without bleeding (principal); R11.2 Nausea with vomiting, unspecified; R19.7 Diarrhea, unspecified; Z79.899 Other long term (current) drug therapy; Z87.891 Personal history of nicotine dependence
CPT/HCPCS: 36415; 80053; 81003; 81025; 85025; 99283

== ENCOUNTER 2021-02-05 13:30 | Emergency (ER) | payer OTHER, SELFPAY ==
--- NOTE | ~2021-02-05 | CT_ITS ---
EXAMINATION: CT OF THE HEAD WITHOUT CONTRAST CLINICAL INFORMATION: Nausea, dizziness This CT examination was performed using dose optimization techniques as appropriate, variously including the following: *Automated exposure control *Adjustment of mA and/or kV according to patient size (this includes techniques or standardized protocols for targeted exams where dose is matched to indication/reason for exam; i.e. extremities or head) *Use of iterative reconstruction technique DLP: 686 mGy-cm COMPARISON: None. TECHNIQUE: Noncontrast CT scan of the head was obtained from the base of the skull to the vertex. FINDINGS: The ventricles and cisterns are normal in size, shape and configuration. There are no extra-axial surface collections or evidence of hemorrhage. Midline structures are central. The layton/white differentiation is maintained. The orbits appear normal bilaterally. The paranasal sinuses are notable for left maxillary sinus disease partially imaged. No fractures are seen. CT/CT abdomen pelvis w con IMPRESSION: No acute intracranial abnormality. No focal lesion. Incidental sinus disease. EXAMINATION: CT ABDOMEN AND PELVIS WITH CONTRAST CLINICAL INFORMATION: Weight loss. COMPARISON: 12/21/2015. TECHNIQUE: Contiguous axial thin section helical images of the abdomen and pelvis were performed following the administration of oral contrast and 85 mL of intravenous Omnipaque 350. The data set was reformatted in the coronal and sagittal planes and reviewed on an independent workstation. This CT examination was performed using dose optimization techniques as appropriate, variously including the following: *Automated exposure control *Adjustment of mA and/or kV according to patient size (this includes techniques or standardized protocols for targeted exams where dose is matched to indication/reason for exam; i.e. extremities or head) *Use of iterative reconstruction technique DLP: 632 mGy-cm FINDINGS: LUNG BASES: No focal parenchymal or pleural disease. No pericardial effusion. Moderate sized axial type hiatus hernia. LIVER, GALLBLADDER, BILIARY TREE: Within normal limits. No focal lesion. PANCREAS: No mass or inflammatory changes. SPLEEN: No enlargement. Tiny low-density subcentimeter lesion superior pole likely a small cyst.. ADRENAL GLANDS AND KIDNEYS: Adrenal glands normal. No obstructing 5 mm right lower pole calyceal stone. Left kidney unremarkable. PELVIS: There is no pelvic mass. Pelvic organs within normal limits. URETERS AND BLADDER: Within normal limits. BOWEL LOOPS: No thickening or dilatation. No inflammatory changes. Gastric sleeve type surgical changes noted. LYMPHOVASCULAR STRUCTURES: No pathologic enlargement. BONES: No lytic or sclerotic lesions. No fracture. IMPRESSION: Nonobstructing right-sided renal calculus. No mass or lymphadenopathy. Satisfactory postsurgical changes.
[2021-02-05 13:54] VITALS: BP 139/86; PULSE 80; RESP 16; TEMP 37.1; O2SAT 99; BMI 28.7
[2021-02-05 16:18] LABS: MANUAL DIFF FLAG NO
[2021-02-05 16:20] LABS: Basophils Percent Auto 0.5 % (0-2); Eosinophils Absolute Auto 0.1 X10*3/uL (0.0-0.4); Eosinophils Percent Auto 1.8 % (0-4); Hematocrit 35.6 % (37-47); Hemoglobin 11.7 g/dl (12.0-16.0); Imm Gran Abs Auto 0.01 X10*3/uL (0.00-0.03); Imm Gran Pct Auto 0.2 % (0.0-0.4); Lymphocytes Absolute Auto 2.2 X10*3/uL (1.2-4.9); Lymphocytes Percent Auto 36.5 % (20-40); Mean Corpuscular HGB Conc 32.9 g/dl (31.0-35.0); Mean Corpuscular Hemoglobin 27.8 pg (27.0-33.0); Mean Corpuscular Volume 84.6 fL (80-98); Mean Platelet Volume 9.2 fL (9.4-12.3); Monocytes Absolute Auto 0.6 X10*3/uL (0.1-1.2); Monocytes Percent Auto 9.7 % (2-11); Neutrophils Absolute Auto 3.1 X10*3/uL (2.0-8.3); Neutrophils Percent Auto 51.3 % (45-73); Platelet Count 322 X10*3/uL (160-400); Red Blood Count 4.21 X10*6/uL (4.20-5.50); Red Cell Distribution Width 14.4 % (11.0-16.0); White Blood Count 6.1 X10*3/uL (4.8-10.8)
[2021-02-05 16:38] LABS: Alanine Aminotransferase 21 U/L (0-31); Albumin Level 4.5 g/dL (3.5-5.0); Alkaline Phosphatase 59 U/L (39-117); Anion Gap 14 (12-20); Aspartate Amino Transferase 28 U/L (5-31); Bilirubin Total 0.3 mg/dL (0.0-1.0); Blood Urea Nitrogen 13 mg/dL (9-16); Carbon Dioxide 27 mmol/L (22-29); Chloride 100 mmol/L (96-108); Creatinine Clr Calc Pharmacy 59.2; Estimated Glomerular Filt Rate 59; Glucose Random 92 mg/dL (60-115); Potassium 4.6 mmol/L (3.3-5.1); Sodium 136 mmol/L (135-145); Total Protein 6.9 g/dL (6.5-8.0)
--- NOTE | 2021-02-05 18:16 | ED_ITS ---
HPI - Nausea/Vomiting/Diarrhea General Chief complaint: Nausea/Vomiting/Diarrhea Stated complaint: VOMITING Source: patient Mode of arrival: ambulatory Limitations: no limitations History of Present Illness HPI Narrative: 55-year-old female presents with nausea and vomiting since November, and unintentional 30 lb weight loss. States have a history of gastric sleeve. MD elicited complaint: nausea and vomiting Pertinent past history: abdominal surgery Onset (ago): month(s) Description of vomiting: watery and bilious Associated nausea: Yes Associated abdominal pain: No Severity: moderate Exacerbating factors: eating and vomiting Relieving factors: none Context: history of abdominal surgery Associated symptoms: malaise and nausea/vomiting Treatment prior to arrival: none Related Data Home Medications Medication Instructions Recorded Confirmed bupropion HCl 150 mg 24 hr tablet, 300 mg PO QAM 03/05/20 01/28/21 extended release cholecalciferol (vitamin D3) 125 125 mcg PO DAILY 06/08/20 01/28/21 mcg (5,000 unit) tablet (Vitamin D3) clonazepam 0.5 mg tablet 0.5 mg PO DAILY PRN 06/08/20 01/28/21 fluoxetine 20 mg capsule (Prozac) 40 mg PO DAILY 06/08/20 01/28/21 frbzfjbjfkce-jxadauro-kbdjbs tablet 1 tab PO DAILY 06/08/20 01/28/21 calcium carbonate 500 mg calcium 500 mg PO DAILY 08/11/20 01/28/21 (1,250 mg) chewable tablet (Calcium 500) prazosin 1 mg capsule 1 mg PO BEDTIME cap 12/22/20 01/28/21 Previous Rx's Medication Instructions Recorded ziprasidone HCl 20 mg capsule 20 mg PO BEDTIME 30 Days #15 cap 06/28/20 (Geodon) ascorbic acid (vitamin C) 500 mg 500 mg PO DAILY #30 cap 08/28/20 tablet (Vitamin C) ferrous sulfate 325 mg (65 mg 325 mg PO DAILY #30 cap 08/28/20 iron) tablet meloxicam 7.5 mg tablet 7.5 mg PO DAILY #30 cap 12/10/20 lisinopril 20 1 tab PO DAILY #90 cap 01/10/21 mg-hydrochlorothiazide 25 mg tablet omeprazole 20 mg capsule,delayed 20 mg PO BID #180 cap 01/10/21 release ondansetron HCl 4 mg tablet 4 mg PO Q8H PRN #10 tab 01/13/21 (Zofran) simvastatin 10 mg tablet 10 mg PO BEDTIME #90 tab 01/31/21 ondansetron 4 mg disintegrating 4 mg PO ONCE PRN #10 tab 02/05/21 tablet Allergies Allergy/AdvReac Type Severity Reaction Status Date / Time No Known Allergies Allergy Verified 01/28/21 14:23 [No Known Allergies*] Review of Systems 2 Review of Systems: Constitutional: No Fever, No Chills ENT/Mouth: No Ear Pain, No Hoarseness, No sore throat Eyes: No Eye Pain, No Swelling, No Redness, No Foreign Body Cardiovascular: No Chest Pain, No SOB Respiratory: No Cough, No Dyspnea Gastrointestinal: Positive 30 lb weight loss, Positive Nausea, positive Vomiting, No Diarrhea, No abdominal Pain Genitourinary: No Dysuria, No Hematuria Musculoskeletal: No joint pain, No Myalgias, No Joint Swelling Skin: No Skin lacerations, No rash Neuro: No Weakness, No Numbness, No Paresthesias, No Loss of Consciousness, No Dizziness, No Headache Psych: No Anxiety/Panic, No Depression Heme/Lymph: no easy bruising, no Lymphadenopathy Endocrine: No Polyuria, No Polydipsia Yes all other systems are reviewed and are negative Gastrointestinal: Gastrointestinal: Reports nausea PMFSH Past Medical History Attestation statement: The following information was validated with the patient. Source: old records reviewed Medical History Anxiety and depression BMI 35.0-35.9,adult Cervical radiculopathy Difficulty sleeping GERD (gastroesophageal reflux disease) HTN (hypertension) Hypercholesterolemia Hypersomnolence Impaired glucose tolerance Insomnia Intestinal malabsorption following gastrectomy Obesity (BMI 30-39.9) PTSD (post-traumatic stress disorder) Snoring Vitamin D deficiency Weight gain following gastric bypass surgery Surgical History H/O: History of carpal tunnel release History of colonoscopy History of excision of mass History of gastric surgery History of neck surgery History of removal of laparoscopic gastric banding device History of tubal ligation Hx of abdominoplasty Hx of breast reduction, elective LAP-BAND surgery status S/P laparoscopic sleeve gastrectomy Status post panniculectomy Family History Family History Father Diabetes Mother High blood pressure High cholesterol Dementia Daughter Healthy female Son No problems noted. Son High blood pressure High cholesterol Social History Social History Household Members: Children Housing: House Alcohol intake: never Patient Tobacco Use Status: Former Tobacco user Tobacco use type: Cigarette Years Smoked: 1989 Advance Directives: No Advance Directives Information Provided: Yes Patient : No service: No Current occupational status: unemployed Physical Exam Vital Signs: Vital Signs: Last Vital Signs Temp 98.8 F 02/05/21 13:54 Pulse 80 02/05/21 13:54 Resp 16 02/05/21 13:54 BP 139/86 02/05/21 13:54 Pulse Ox 99 02/05/21 13:54 Body Mass Index 28.7 Appearance: Alert. Oriented X3. Moderate distress. Head: Normal external exam. Normocephalic. Atraumatic. No Longo signs noted. No raccoon eyes noted Eyes: PERRLA. EOMI. Conjunctiva and sclera normal. Eyelids normal. ENT: TM's Normal. Pharynx normal. Uvula midline. Moist mucous membranes. No trismus noted. No drooling noted. No muffled voice noted. Neck: Normal inspection. Neck supple. No adenopathy. Thyroid Normal. No meningeal signs. No neck mass noted. CVS: Normal heart rate and rhythm. Heart sound normal. No murmurs noted. Pulses equal to all extremities. Respiratory: No respiratory distress. Painless inspiration. Breath sounds normal. No wheezes/rales/rhonchi noted. Chest nontender. No accessory muscle usage noted or decreased air movement noted. Abdomen: Soft and nontender. Bowel sounds normal in all 4 quadrants. No distention noted. No organomegaly noted. No visible injury noted. Back: No CVA tenderness. Full range of motion noted. Skin: Skin warm and dry. Normal skin color. Normal skin turgor. No rashes/lesions/lacerations noted. Extremities: No lower extremity edema. Extremities exhibit normal range of motion. Extremities nontender. Neuro: cranial nerves 2-12 intact, no focal neural deficits, strength 5/5 to all extremities, No motor deficit. No sensory deficit. Course Course Course Narrative: 55-year-old female presents with nausea and vomiting starting in November. Patient has been evaluated few times in the emergency department and urgent care for intractable nausea and vomiting. She does have a referral to Gastroenterology, but is unable to get in for evaluation. Patient states that she is dizzy, loses balance, and has lost 30 lb since November unintentionally. She does have history of gastric sleeve. At this time I will order CT scan of head and abdomen and pelvis with contrast as patient has not had any prior imaging in the past few years. [facility], currently unremarkable. Will add on a lipase. 7:[address] abdomen pelvis and head negative for acute findings requiring emergent intervention. Discussion with patient regarding plan to discharge home with Zofran sublingual and for patient to follow-up with gastroenterology. Patient verbalized understanding of and agrees to plan of care discharge home. MDM - Nausea/Vomiting/Diarrhea Differential Diagnosis Differential diagnosis: Likely gastroenteritis and dehydration Medical Records Attestation: I reviewed the patient's medical records. Lab Data Attestation: I reviewed the patient's lab results. Result diagrams: 02/05/21 16:14 02/05/21 16:14 Labs: Lab Results 02/05/21 02/05/21 02/05/21 Range/Units 16:14 16:14 18:18 WBC 6.1 (4.8-10.8) X10*3/uL RBC 4.21 (4.20-5.50) X10*6/uL Hgb 11.7 L (12.0-16.0) g/dl Hct 35.6 L (37-47) % MCV 84.6 (80-98) fL MCH 27.8 (27.0-33.0) pg MCHC 32.9 (31.0-35.0) g/dl RDW 14.4 (11.0-16.0) % Plt Count 322 (160-400) X10*3/uL MPV 9.2 L (9.4-12.3) fL Immature Gran % (Auto) 0.2 (0.0-0.4) % Neut % (Auto) 51.3 (45-73) % Lymph % (Auto) 36.5 (20-40) % [place] % (Auto) 9.7 (2-11) % Eos % (Auto) 1.8 (0-4) % Baso % (Auto) 0.5 (0-2) % Lymph # (Auto) 2.2 (1.2-4.9) X10*3/uL [place] # (Auto) 0.6 (0.1-1.2) X10*3/uL Eos # (Auto) 0.1 (0.0-0.4) X10*3/uL Baso # (Auto) 0.0 (0.0-0.2) X10*3/uL Abs Immat Gran (auto) 0.01 (0.00-0.03) X10*3/uL Absolute Neuts (auto) 3.1 (2.0-8.3) X10*3/uL Absolute Nucleated RBC 0.000 (0.0-0.012) X10*3/uL Nucleated RBC % (auto) 0.0 (0.0-0.2) /100WBC Sodium 136 (135-145) mmol/L Potassium 4.6 (3.3-5.1) mmol/L Chloride 100 (96-108) mmol/L Carbon Dioxide 27 (22-29) mmol/L Anion Gap 14 (12-20) BUN 13 (9-16) mg/dL Creatinine 0.98 (0.5-1.4) mg/dL Estim Creat Clear Calc 59.2 Estimated GFR 59 Random Glucose 92 (60-115) mg/dL Calcium 10.0 (8.4-10.2) mg/dL Total Bilirubin 0.3 (0.0-1.0) mg/dL AST 28 (5-31) U/L ALT 21 (0-31) U/L Alkaline Phosphatase 59 (39-117) U/L Total Protein 6.9 (6.5-8.0) g/dL Albumin 4.5 (3.5-5.0) g/dL Lipase 62 (8-78) U/L Urine Color YELLOW Urine Appearance CLEAR Urine pH 6.5 (5.0-8.0) Ur Specific [place] 1.010 (1.005-1.025) Urine Protein NEG (NEG-TRACE) MG/DL Urine Glucose (UA) NEG (NEG) MG/DL Urine Ketones NEG (NEG) MG/DL Urine Blood NEG (NEG) Urine Nitrite NEG (NEG) Ur Leukocyte Esterase NEG (NEG) Urine Test (NEGATIVE) 02/05/21 Range/Units 18:18 WBC (4.8-10.8) X10*3/uL RBC (4.20-5.50) X10*6/uL Hgb (12.0-16.0) g/dl Hct (37-47) % MCV (80-98) fL MCH (27.0-33.0) pg MCHC (31.0-35.0) g/dl RDW (11.0-16.0) % Plt Count (160-400) X10*3/uL MPV (9.4-12.3) fL Immature Gran % (Auto) (0.0-0.4) % Neut % (Auto) (45-73) % Lymph % (Auto) (20-40) % [place] % (Auto) (2-11) % Eos % (Auto) (0-4) % Baso % (Auto) (0-2) % Lymph # (Auto) (1.2-4.9) X10*3/uL [place] # (Auto) (0.1-1.2) X10*3/uL Eos # (Auto) (0.0-0.4) X10*3/uL Baso # (Auto) (0.0-0.2) X10*3/uL Abs Immat Gran (auto) (0.00-0.03) X10*3/uL Absolute Neuts (auto) (2.0-8.3) X10*3/uL Absolute Nucleated RBC (0.0-0.012) X10*3/uL Nucleated RBC % (auto) (0.0-0.2) /100WBC Sodium (135-145) mmol/L Potassium (3.3-5.1) mmol/L Chloride (96-108) mmol/L Carbon Dioxide (22-29) mmol/L Anion Gap (12-20) BUN (9-16) mg/dL Creatinine (0.5-1.4) mg/dL Estim Creat Clear Calc Estimated GFR Random Glucose (60-115) mg/dL Calcium (8.4-10.2) mg/dL Total Bilirubin (0.0-1.0) mg/dL AST (5-31) U/L ALT (0-31) U/L Alkaline Phosphatase (39-117) U/L Total Protein (6.5-8.0) g/dL Albumin (3.5-5.0) g/dL Lipase (8-78) U/L Urine Color Urine Appearance Urine pH (5.0-8.0) Ur Specific [place] (1.005-1.025) Urine Protein (NEG-TRACE) MG/DL Urine Glucose (UA) (NEG) MG/DL Urine Ketones (NEG) MG/DL Urine Blood (NEG) Urine Nitrite (NEG) Ur Leukocyte Esterase (NEG) Urine Test NEGATIVE (NEGATIVE) Imaging Data CT scan - head: Attestation: I personally reviewed and interpreted this imaging study as follows: Radiologist's impression: COMPARISON: None. TECHNIQUE: Noncontrast CT scan of the head was obtained from the base of the skull to the vertex. FINDINGS: The ventricles and cisterns are normal in size, shape and configuration. There are no extra-axial surface collections or evidence of hemorrhage. Midline structures are central. The layton/white differentiation is maintained. The orbits appear normal bilaterally. The paranasal sinuses are notable for left maxillary sinus disease partially imaged. No fractures are seen. CT/CT abdomen pelvis w con IMPRESSION: No acute intracranial abnormality. No focal lesion. Incidental sinus disease. ? CT abdomen pelvis: Attestation: I personally reviewed and interpreted this imaging study as follows: Radiologist's impression: FINDINGS: LUNG BASES: No focal parenchymal or pleural disease. No pericardial effusion. Moderate sized axial type hiatus hernia. ? LIVER, GALLBLADDER, BILIARY TREE: Within normal limits. No focal lesion. ? PANCREAS: No mass or inflammatory changes. ? SPLEEN: No enlargement. Tiny low-density subcentimeter lesion superior pole likely a small cyst.. ? ADRENAL GLANDS AND KIDNEYS: Adrenal glands normal. No obstructing 5 mm right lower pole calyceal stone. Left kidney unremarkable. ? PELVIS: There is no pelvic mass. Pelvic organs within normal limits. ? URETERS AND BLADDER: Within normal limits. ? BOWEL LOOPS: No thickening or dilatation. No inflammatory changes. Gastric sleeve type surgical changes noted. ? LYMPHOVASCULAR STRUCTURES: No pathologic enlargement. ? BONES: No lytic or sclerotic lesions. No fracture. ? IMPRESSION: Nonobstructing right-sided renal calculus. No mass or lymphadenopathy. Satisfactory postsurgical changes. Discharge Plan Discharge Clinical Impression: Kidney stone Nausea & vomiting Qualifiers: Vomiting type: bilious vomiting Qualified Code(s): R11.14 - Bilious vomiting Patient Disposition: Home, Self-Care Instructions: Kidney Stones (ED), Acute Nausea and Vomiting (ED) Additional Instructions: You were evaluated for intractable nausea and vomiting with 30 lb weight loss over the past 2 and half months. Please follow-up with Gastroenterology. CT scan of head, abdomen and pelvis are negative for acute findings requiring emergent intervention. Incidental findings are right-sided kidney stone. Please use Zofran as needed for nausea and vomiting. Please follow-up with Dr. Royal, gastroenterology. I provided you a referral number. Thank you for choosing this emergency department for evaluation. Please follow-up with primary care physician as needed. Return to the emergency department for any new, concerning, or worsening symptoms. Prescriptions: New ondansetron 4 mg tablet,disintegrating 4 mg PO ONCE PRN (Reason: nausea and vomiting) Qty: 10 RF: 0 No Action ferrous sulfate 325 mg (65 mg iron) tablet 325 mg PO DAILY Qty: 30 RF: 3 ascorbic acid (vitamin C) [Vitamin C] 500 mg tablet 500 mg PO DAILY Qty: 30 RF: 3 meloxicam 7.5 mg tablet 7.5 mg PO DAILY Qty: 30 RF: 1 omeprazole 20 mg capsule,delayed release(DR/EC) 20 mg PO BID Qty: 180 RF: 1 lisinopril-hydrochlorothiazide 20-25 mg tablet 1 tab PO DAILY Qty: 90 RF: 1 simvastatin 10 mg tablet 10 mg PO BEDTIME Qty: 90 RF: 0 clonazepam 0.5 mg Tablet 0.5 mg PO DAILY PRN (Reason: Anxiety) RF: 0 fluoxetine [Prozac] 20 mg Capsule 40 mg PO DAILY RF: 0 Centrum Silver Tablet 1 tab PO DAILY RF: 0 cholecalciferol (vitamin D3) [Vitamin D3] 125 mcg (5,000 unit) Tablet 125 mcg PO DAILY RF: 0 ziprasidone HCl [Geodon] 20 mg capsule 20 mg PO BEDTIME 30 Days Qty: 15 RF: 1 ondansetron HCl [Zofran] 4 mg tablet 4 mg PO Q8H PRN (Reason: nausea and vomiting) Qty: 10 RF: 0 prazosin 1 mg capsule 1 mg PO BEDTIME RF: 0 bupropion HCl 150 mg tablet extended release 24 hr 300 mg PO QAM RF: 0 calcium carbonate [Calcium 500] 500 mg calcium (1,250 mg) tablet,chewable 500 mg PO DAILY RF: 0 Referrals: Marco Antonio Royal MD [Physician] - 2 days (Nausea, vomiting, 30 lb weight loss since November)
[2021-02-05 18:28] LABS: Appearance Urine CLEAR; Color Urine YELLOW; Glucose Urine UA NEG (NEG); Leukocyte Esterase Urine NEG (NEG); Nitrite Urine NEG (NEG); PH 6.5 (5.0-8.0); Urine Blood NEG (NEG); Urine Ketones NEG (NEG); Urine Protein NEG (NEG-TRACE)
[2021-02-05 18:29] LABS: UPreg QC Valid YES; Urine Pregnancy NEGATIVE (NEGATIVE)
[2021-02-05] MEDS: 0.9 % Sodium Chloride 1,000 ML 999 ML IVCONT (18:29)
[2021-02-05] MEDS: ondansetron HCL 4 MG/2 ML VIAL IVPUSH (18:29)
[2021-02-05 18:34] LABS: Lipase 62 U/L (8-78)
[2021-02-05] MEDS: iohexoL 350 MG/ML 100 ML INFUS..BTL IV (18:52)
== END 2021-02-05 20:33 | disposition home or self-care (01) ==
PROVIDERS: Nurse Practitioner Family; Emergency Provider Internal Medicine; PCP Internal Medicine
DX: R11.14 Bilious vomiting (principal); N20.0 Calculus of kidney; I10 Essential (primary) hypertension; Z98.84 Bariatric surgery status
CPT/HCPCS: 36415; 70450; 74177; 80053; 81003; 81025; 83690; 85025; 96361; 96374; 99284; J2405; Q9967

== ENCOUNTER 2021-02-11 10:42 | Outpatient (REF) | payer OTHER, SELFPAY ==
--- NOTE | ~2021-02-11 | MM_ITS ---
EXAMINATION: MM SCREENING DIGITAL BREAST TOMOSYNTHESIS, BILATERAL CLINICAL INFORMATION: Screening. Asymptomatic. The lifetime risk of breast cancer based on the Tyrer-Cuzick Model is 5%. COMPARISON: Mammography: 11/13/2019, 08/19/2018, 08/17/2017 TECHNIQUE: Digital breast tomosynthesis is performed in both the craniocaudal and mediolateral oblique views along with computer-aided detection (CAD). Synthesized 2D images are generated from the tomosynthesis. FINDINGS: There are scattered areas of fibroglandular density (ACR BI-RADS breast composition Category b). There are no significant masses, abnormal calcifications, or other abnormalities. Parenchymal pattern is similar to prior studies exams. MM/MM tomosynthesis screening BI IMPRESSION: No mammographic evidence of malignancy. ASSESSMENT: BI-RADS 1: Negative RECOMMENDATION: Routine annual mammography screening. This patient's information was entered into a reminder system with a target due date for their next mammogram.
== END 2021-02-11 10:43 | disposition home or self-care (01) ==
LOC: HO.MAMMO 10:42
PROVIDERS: Visit Provider Internal Medicine
DX: Z12.31 Encounter for screening mammogram for malignant neoplasm of breast (principal)
CPT/HCPCS: 77063; 77067

== ENCOUNTER → 2021-02-24 15:29 | Outpatient (BNVA) | payer OTHER, SELFPAY | PROVIDERS: PCP Internal Medicine; Referring Provider Internal Medicine; Visit Provider Nurse Practitioner | DX: R11.2 Nausea with vomiting, unspecified (principal); R63.4 Abnormal weight loss | CPT/HCPCS: 99202 ==

== ENCOUNTER → 2021-03-07 09:48 | Outpatient (BNVA) | payer OTHER, SELFPAY | PROVIDERS: Visit Provider Advanced Practice Midwife ==

== ENCOUNTER 2021-03-09 15:04 | Inpatient (IN) | payer OTHER, SELFPAY ==
--- NOTE | ~2021-03-09 | CT_ITS ---
EXAMINATION: CT HEAD WITHOUT CONTRAST CLINICAL INFORMATION: Nausea and vomiting. COMPARISON: CT head dated from 02/05/2021. TECHNIQUE: Contiguous axial imaging was performed from the skull base to vertex without intravenous administration of contrast. This CT examination was performed using dose optimization techniques as appropriate, variously including the following: *Automated exposure control *Adjustment of mA and/or kV according to patient size (this includes techniques or standardized protocols for targeted exams where dose is matched to indication/reason for exam; i.e. extremities or head) *Use of iterative reconstruction technique DLP: 716 mGy-cm FINDINGS: There is no evidence of acute intracranial hemorrhage or edematous territorial infarction. There is no abnormal attenuation within the brain parenchyma. Johnson-white matter differentiation is preserved. The ventricles are normal in size and configuration. No evidence for obstructive hydrocephalus. No abnormal mass effect or midline shift. No extra-axial fluid collections. No acute soft tissue or osseous abnormalities. Partial opacification of the left maxillary sinus. Other paranasal sinuses and mastoids are clear. CT/CT head/brain wo con IMPRESSION: No evidence of acute intracranial hemorrhage or edematous territorial infarction. Partial opacification of the left maxillary sinus with air-fluid levels. Correlate for the presence of acute sinusitis.
--- NOTE | ~2021-03-09 | NM_ITS ---
EXAMINATION: AL RADIONUCLIDE SOLID FOOD GASTRIC EMPTYING 4-HOUR STUDY CLINICAL INFORMATION: GERD, nausea, vomiting, weight loss and diabetes. Estimated bypass 2015. COMPARISON: None TECHNIQUE: A standard meal consisting of 4 oz of Egg Beaters brand tagged with 0.99 microcuries Tc-99m Sulfur Colloid, 8 oz water and 2 slices of toast with jelly was administered orally to the patient. Images were obtained using a dual head gamma camera in the anterior and posterior projections over of the stomach immediately post ingestion and at hourly intervals up to 4 hours post ingestion. The anterior and posterior counts at each time interval were averaged using the geometric mean and expressed as percentage of the immediate post ingestion counts. FINDINGS: There is good visualization of activity in the stomach immediately post ingestion. As the study progresses, there is good clearance of activity from the stomach and visualization of progressively increasing small bowel activity. By the end of the study, there is almost no retention noted in the stomach. Retention in the stomach at each time interval was: 1 hour 28% (normal 37%-90%) 2 hours 1% (normal 30%-60%) 3 hours 1% 4 hours Not Performed. (normal 0%-10%) AL/AL gastric emptying study IMPRESSION: Normal 4-hour solid food gastric emptying study.
[2021-03-09 15:10] VITALS: BP 134/94; PULSE 86; RESP 20; TEMP 37.2; O2SAT 99; BMI 28.7
--- NOTE | 2021-03-09 16:20 | ED_ITS ---
HPI - Nausea/Vomiting/Diarrhea General Chief complaint: Nausea/Vomiting/Diarrhea Stated complaint: vomiting Time Seen by Provider: 03/09/21 16:19 Source: patient Mode of arrival: ambulatory Limitations: no limitations History of Present Illness HPI Narrative: 55 y/o female with history of fibromyalgia, s/p laproscopic sleeve gastrectomy 2017, hiatial hernia, esophageal dysmotility, GERD who is followed by GI presents to the ER with nausea and vomiting since November, worse in the last 24 hours. She was last seen by GI on 02/24 with plans to get an EGD and gastric emptying study done ANDI. She reports unable to get tests done until May 20, 2021. She had unremarkable CT scan about 1 month ago. She had an upper GI series done in July showing the esophageal dysmotility and hiatal hernia. She reports over the last 2 days she has had increased vomiting episodes of both solids and liquids. She states at times she feels like things are getting stuck in her throat and she vomits it right back up. Other times it is just moments after she eats were everything comes back up. She has not been able to keep anything down in the last 2 days. She reports ongoing epigastric pain that is unchanged over the last month. She is moving her bowels normally. She has no fever or chills. No chest pain or shortness of breath. She reports an unintentional 40 lb weight loss since November when this all began. MD elicited complaint: nausea and vomiting Pertinent past history: abdominal surgery Onset (ago): month(s) (4) Description of vomiting: food contents Associated nausea: Yes Associated abdominal pain: Yes Location of pain: epigastric Radiation: diffuse Pain consistency: intermittent Severity: moderate Quality: stabbing and aching Exacerbating factors: eating Relieving factors: vomiting Context: history of abdominal surgery Associated symptoms: malaise and nausea/vomiting Treatment prior to arrival: none Related Data Home Medications Medication Instructions Recorded Confirmed bupropion HCl 150 mg 24 hr tablet, 300 mg PO QAM 03/05/20 03/09/21 extended release cholecalciferol (vitamin D3) 125 125 mcg PO DAILY 06/08/20 03/09/21 mcg (5,000 unit) tablet (Vitamin D3) clonazepam 0.5 mg tablet 0.5 mg PO DAILY PRN 06/08/20 03/09/21 fluoxetine 20 mg capsule (Prozac) 40 mg PO DAILY 06/08/20 03/09/21 ngrbbcuanavd-lqbqrudz-pibafj tablet 1 tab PO DAILY 06/08/20 03/09/21 calcium carbonate 500 mg calcium 500 mg PO DAILY 08/11/20 03/09/21 (1,250 mg) chewable tablet (Calcium 500) prazosin 1 mg capsule 2 mg PO BEDTIME cap 12/22/20 03/09/21 ondansetron HCl 4 mg tablet 1 tab PO BID-TID PRN 03/09/21 03/09/21 Previous Rx's Medication Instructions Recorded ziprasidone HCl 20 mg capsule 20 mg PO BEDTIME 30 Days #15 cap 06/28/20 (Geodon) ascorbic acid (vitamin C) 500 mg 500 mg PO DAILY #30 cap 08/28/20 tablet (Vitamin C) ferrous sulfate 325 mg (65 mg 325 mg PO DAILY #30 cap 08/28/20 iron) tablet meloxicam 7.5 mg tablet 7.5 mg PO DAILY #30 cap 12/10/20 lisinopril 20 1 tab PO DAILY #90 cap 01/10/21 mg-hydrochlorothiazide 25 mg tablet omeprazole 20 mg capsule,delayed 20 mg PO BID #180 cap 01/10/21 release simvastatin 10 mg tablet 10 mg PO BEDTIME #90 tab 02/28/21 Allergies Allergy/AdvReac Type Severity Reaction Status Date / Time No Known Allergies Allergy Verified 03/07/21 10:03 [No Known Allergies*] Review of Systems Review of Systems: Constitutional: No Fever, No Chills ENT/Mouth: No sore throat, No Rhinorrhea, + Swallowing Difficulty Cardiovascular: No Chest Pain, No SOB, No Orthopnea, No Edema Respiratory: No Cough, No Sputum Gastrointestinal: + Nausea, + Vomiting, No Diarrhea, + abdominal Pain, No Hematochezia, No Melena Genitourinary: No Dysuria, No Urinary Frequency, No Hematuria Musculoskeletal: No joint pain, No Myalgias Skin: No Skin Lesions, No rash Neuro: + Weakness, No Numbness, No Dizziness, + Headache Psych: + Anxiety/Panic, No Depression Heme/Lymph: No Bruising, No Lymphadenopathy Endocrine: No Polyuria, No Polydipsia Gastrointestinal: Gastrointestinal: Reports nausea PMFSH Past Medical History Medical History Anxiety and depression BMI 35.0-35.9,adult Cervical radiculopathy Difficulty sleeping GERD (gastroesophageal reflux disease) HTN (hypertension) Hx of hemorrhoids Hypercholesterolemia Hypersomnolence Impaired glucose tolerance Insomnia Intestinal malabsorption following gastrectomy Obesity (BMI 30-39.9) PTSD (post-traumatic stress disorder) Snoring Vitamin D deficiency Weight gain following gastric bypass surgery Surgical History H/O: History of carpal tunnel release History of colonoscopy History of excision of mass History of gastric surgery History of neck surgery History of removal of laparoscopic gastric banding device History of tubal ligation Hx of abdominoplasty Hx of breast reduction, elective Hx of endoscopy LAP-BAND surgery status S/P laparoscopic sleeve gastrectomy Status post panniculectomy Family History Family History Father Diabetes Mother High blood pressure High cholesterol Dementia Daughter Healthy female Son No problems noted. Son High blood pressure High cholesterol Social History Social History Household Members: Children Housing: House Alcohol intake: never Patient Tobacco Use Status: Former Tobacco user Tobacco use type: Cigarette Years Smoked: stopped 1990 Use of substances other than those prescribed or required for medical reasons: No Advance Directives: No Advance Directives Information Provided: No service: No Current occupational status: unemployed Physical Exam Vital Signs: Vital Signs: Last Vital Signs Temp 98.5 F 03/09/21 17:33 Pulse 69 03/09/21 17:33 Resp 18 03/09/21 17:33 BP 142/84 H 03/09/21 17:33 Pulse Ox 98 03/09/21 17:33 Body Mass Index 28.7 Appearance: Alert. Oriented X3. No acute distress. Eyes: Pupils equal, round and reactive to light. ENT: Pharynx normal. Neck: Normal inspection. Neck supple. CVS: Normal heart rate and rhythm. Pulses normal. Respiratory: No respiratory distress. Breath sounds normal. Abdomen: Soft with mild epigastric tenderness, no rebound or guarding. normal +BS x4 Skin: Skin warm and dry. Normal skin color. Normal skin turgor. No rashes. Extremities: No lower extremity edema. Neuro: Oriented X 3. No motor deficit. No sensory deficit. Course Course Course Narrative: 55-year-old female with extensive GI history including its sleeve gastrectomy back in 2017 status post lap in removal, esophageal dysmotility, GERD, hiatal hernia who presents to the ER with daily nausea vomiting, unintentional weight loss since November 2020. She is followed by GI with plans to get EGD and gastric emptying study unfortunately these test cannot be done for the next couple of months. Her symptoms are worsening. Unable to tolerate any p.o. for the last 2 days. Will get labs to rule out dehydration and electrolyte abnormalities. Hold off on imaging given she had a recent CT scan 1 month ago. Will discuss with GI. May need to be admitted. Reevaluation(s) Reevaluation #1: Lab workup was unremarkable. COVID negative. Electrolytes are within normal limits, normal renal function. She is getting IV fluids. Spoke with Dr. Urias from GI who is in agreement with patient being admitted to the hospital for upper endoscopy. Recommending keeping NPO with hope she may be able to get this done tomorrow. Will discuss admission with hospitalist. Time: 18:01 Consultations Consultation #1: GI - Dr. Urias MDM - Nausea/Vomiting/Diarrhea Lab Data Result diagrams: 03/09/21 17:05 03/09/21 17:27 Labs: Lab Results 03/09/21 03/09/21 03/09/21 Range/Units 17:05 17:05 17:05 WBC 6.8 (4.8-10.8) X10*3/uL RBC 3.84 L (4.20-5.50) X10*6/uL Hgb 11.0 L (12.0-16.0) g/dl Hct 33.1 L (37.0-47.0) % MCV 86.2 (80.0-98.0) fL MCH 28.6 (27.0-33.0) pg MCHC 33.2 (31.0-35.0) g/dl RDW 13.3 (11.0-16.0) % Plt Count 322 (160-400) X10*3/uL MPV 9.6 (9.4-12.3) fL Immature Gran % (Auto) 0.1 (0.0-0.4) % Neut % (Auto) 58.6 (45-73) % Lymph % (Auto) 30.1 (20-40) % [place] % (Auto) 8.6 (2-11) % Eos % (Auto) 2.2 (0-4) % Baso % (Auto) 0.4 (0-2) % Lymph # (Auto) 2.0 (1.2-4.9) X10*3/uL [place] # (Auto) 0.6 (0.1-1.2) X10*3/uL Eos # (Auto) 0.2 (0.0-0.4) X10*3/uL Baso # (Auto) 0.0 (0.0-0.2) X10*3/uL Abs Immat Gran (auto) 0.01 (0.00-0.03) X10*3/uL Absolute Neuts (auto) 4.0 (2.0-8.3) x10*3/uL Absolute Nucleated RBC 0.000 (0.0-0.012) X10*3/uL Nucleated RBC % (auto) 0.0 (0.0-0.2) /100WBC Sodium (135-145) mmol/L Potassium (3.3-5.1) mmol/L Chloride (96-108) mmol/L Carbon Dioxide (22-29) mmol/L Anion Gap (12-20) BUN (9-16) mg/dL Creatinine (0.5-1.4) mg/dL Estim Creat Clear Calc Estimated GFR Random Glucose (60-115) mg/dL Calcium (8.4-10.2) mg/dL Magnesium (1.6-2.6) mg/dL Total Bilirubin (0.0-1.0) mg/dL Direct Bilirubin (0.0-0.5) mg/dL AST (5-31) U/L ALT (0-31) U/L Alkaline Phosphatase (39-117) U/L Total Protein (6.5-8.0) g/dL Albumin (3.5-5.0) g/dL Lipase (8-78) U/L Urine Color YELLOW Urine Appearance CLEAR Urine pH 6.0 (5.0-8.0) Ur Specific [place] 1.010 (1.005-1.025) Urine Protein NEG (NEG-TRACE) MG/DL Urine Glucose (UA) NEG (NEG) MG/DL Urine Ketones NEG (NEG) MG/DL Urine Blood NEG (NEG) Urine Nitrite NEG (NEG) Ur Leukocyte Esterase NEG (NEG) Urine Opiates Screen (Not Detect) Urine Fentanyl Screen (Not Detect) Ur Barbiturates Screen (Not Detect) Ur Phencyclidine Scrn (Not Detect) Ur Amphetamines Screen (Not Detect) U Benzodiazepines Scrn (Not Detect) Urine Cocaine Screen (Not Detect) U Marijuana (THC) Screen (Not Detect) COVID-19 (YIN) Negative (Negative) COVID-19 Clin Com See Note 03/09/21 03/09/21 Range/Units 17:05 17:27 WBC (4.8-10.8) X10*3/uL RBC (4.20-5.50) X10*6/uL Hgb (12.0-16.0) g/dl Hct (37.0-47.0) % MCV (80.0-98.0) fL MCH (27.0-33.0) pg MCHC (31.0-35.0) g/dl RDW (11.0-16.0) % Plt Count (160-400) X10*3/uL MPV (9.4-12.3) fL Immature Gran % (Auto) (0.0-0.4) % Neut % (Auto) (45-73) % Lymph % (Auto) (20-40) % [place] % (Auto) (2-11) % Eos % (Auto) (0-4) % Baso % (Auto) (0-2) % Lymph # (Auto) (1.2-4.9) X10*3/uL [place] # (Auto) (0.1-1.2) X10*3/uL Eos # (Auto) (0.0-0.4) X10*3/uL Baso # (Auto) (0.0-0.2) X10*3/uL Abs Immat Gran (auto) (0.00-0.03) X10*3/uL Absolute Neuts (auto) (2.0-8.3) x10*3/uL Absolute Nucleated RBC (0.0-0.012) X10*3/uL Nucleated RBC % (auto) (0.0-0.2) /100WBC Sodium 137 (135-145) mmol/L Potassium 4.3 (3.3-5.1) mmol/L Chloride 104 (96-108) mmol/L Carbon Dioxide 26 (22-29) mmol/L Anion Gap 11 L (12-20) BUN 13 (9-16) mg/dL Creatinine 0.89 (0.5-1.4) mg/dL Estim Creat Clear Calc 65.2 Estimated GFR > 60 Random Glucose 93 (60-115) mg/dL Calcium 9.2 D (8.4-10.2) mg/dL Magnesium 2.0 (1.6-2.6) mg/dL Total Bilirubin 0.2 (0.0-1.0) mg/dL Direct Bilirubin < 0.2 (0.0-0.5) mg/dL AST 25 (5-31) U/L ALT 22 (0-31) U/L Alkaline Phosphatase 63 (39-117) U/L Total Protein 6.0 L (6.5-8.0) g/dL Albumin 4.0 (3.5-5.0) g/dL Lipase 63 (8-78) U/L Urine Color Urine Appearance Urine pH (5.0-8.0) Ur Specific [place] (1.005-1.025) Urine Protein (NEG-TRACE) MG/DL Urine Glucose (UA) (NEG) MG/DL Urine Ketones (NEG) MG/DL Urine Blood (NEG) Urine Nitrite (NEG) Ur Leukocyte Esterase (NEG) Urine Opiates Screen Not Detected (Not Detect) Urine Fentanyl Screen Not Detected (Not Detect) Ur Barbiturates Screen Not Detected (Not Detect) Ur Phencyclidine Scrn Not Detected (Not Detect) Ur Amphetamines Screen Not Detected (Not Detect) U Benzodiazepines Scrn Not Detected (Not Detect) Urine Cocaine Screen Not Detected (Not Detect) U Marijuana (THC) Screen Not Detected (Not Detect) COVID-19 (YIN) (Negative) COVID-19 Clin Com Critical Care Time Critical Care Time Critical Care Time: No Discharge Plan Discharge Clinical Impression: Unintentional weight loss Intractable vomiting Qualifiers: Vomiting type: unspecified Nausea presence: unspecified Qualified Code(s): R11.10 - Vomiting, unspecified Patient Disposition: Admitted As Inpatient
--- NOTE | 2021-03-09 16:47 | PHA.MEDREC ---
Pharmacy Consult ? Medication Reconciliation Pharmacy has completed the medication reconciliation.
[2021-03-09 17:12] LABS: MANUAL DIFF FLAG NO
[2021-03-09] MEDS: 0.9 % Sodium Chloride 1,000 ML 999 ML IVCONT (17:18)
[2021-03-09] MEDS: Metoclopramide HCl 10 MG/2 ML VIAL IVPUSH (17:19)
[2021-03-09 17:21] LABS: Basophils Percent Auto 0.4 % (0-2); Eosinophils Absolute Auto 0.2 X10*3/uL (0.0-0.4); Eosinophils Percent Auto 2.2 % (0-4); Hematocrit 33.1 % (37.0-47.0); Imm Gran Abs Auto 0.01 X10*3/uL (0.00-0.03); Imm Gran Pct Auto 0.1 % (0.0-0.4); Lymphocytes Percent Auto 30.1 % (20-40); Mean Corpuscular HGB Conc 33.2 g/dl (31.0-35.0); Mean Corpuscular Hemoglobin 28.6 pg (27.0-33.0); Mean Corpuscular Volume 86.2 fL (80.0-98.0); Mean Platelet Volume 9.6 fL (9.4-12.3); Monocytes Absolute Auto 0.6 X10*3/uL (0.1-1.2); Monocytes Percent Auto 8.6 % (2-11); Neutrophils Percent Auto 58.6 % (45-73); Platelet Count 322 X10*3/uL (160-400); Red Blood Count 3.84 X10*6/uL (4.20-5.50); Red Cell Distribution Width 13.3 % (11.0-16.0); White Blood Count 6.8 X10*3/uL (4.8-10.8)
[2021-03-09 17:27] LABS: Appearance Urine CLEAR; Color Urine YELLOW; Glucose Urine UA NEG (NEG); Leukocyte Esterase Urine NEG (NEG); Nitrite Urine NEG (NEG); Urine Blood NEG (NEG); Urine Ketones NEG (NEG); Urine Protein NEG (NEG-TRACE)
[2021-03-09 17:33] VITALS: BP 142/84; PULSE 69; RESP 18; TEMP 36.9; O2SAT 98
[2021-03-09 17:43] LABS: Amphetamine Screen Urine Not Detected (Not Detect); Barbiturates, Urine Not Detected (Not Detect); Benzodiazepines Screen Urine Not Detected (Not Detect); Cannabinoid Screen Urine Not Detected (Not Detect); Cocaine Screen Urine Not Detected (Not Detect); Fentanyl, urine Not Detected (Not Detect); Opiate Screen Urine Not Detected (Not Detect); Phencyclidine Screen Urine Not Detected (Not Detect)
[2021-03-09 17:46] LABS: COVID-19 Test Negative (Negative); IDNOW Serial# 9DD0AD1C
[2021-03-09 17:59] LABS: Alanine Aminotransferase 22 U/L (0-31); Alkaline Phosphatase 63 U/L (39-117); Anion Gap 11 (12-20); Aspartate Amino Transferase 25 U/L (5-31); Bilirubin Direct < 0.2 mg/dL (0.0-0.5); Bilirubin Total 0.2 mg/dL (0.0-1.0); Blood Urea Nitrogen 13 mg/dL (9-16); Calcium 9.2 mg/dL (8.4-10.2); Carbon Dioxide 26 mmol/L (22-29); Chloride 104 mmol/L (96-108); Creatinine Clr Calc Pharmacy 65.2; Estimated Glomerular Filt Rate > 60; Glucose Random 93 mg/dL (60-115); Lipase 63 U/L (8-78); Potassium 4.3 mmol/L (3.3-5.1); Sodium 137 mmol/L (135-145)
--- NOTE | 2021-03-09 18:58 | P.HPHOSP_ITS ---
History of Present Illness Date of Service: 03/09/21 Attending physician on admission: Susan Dickinson Chief Complaint: Dysphagia 55 y/o female with history of morbid obesity-had history of lap pending and reversal and subsequently given , s/p laproscopic sleeve gastrectomy 2017, hiatial hernia, esophageal dysmotility, GERD: Patient came to the hospital because of having dysphagia with both solid and liquid, she says her says dysphagia is more with solid than liquid. She had unremarkable CT scan about 1 month ago.? She had an upper GI series done in July showing the esophageal dysmotility and hiatal hernia.? She reports over the last 2 days she has had increased vomiting episodes of both solids and liquids.? She states at times she feels like things are getting stuck in her throat and she vomits it right back up.? Other times it is just moments after she eats were everything comes back up.? She has not been able to keep anything down in the last 2 days.? She reports ongoing epigastric pain that is unchanged over the last month.? She is moving her bowels normally.? She has no fever or chills.? No chest pain or shortness of breath.? She reports an unintentional 40 lb weight loss since November. She followed by GI - seen by GI on 02/24 with plans to get an EGD and gastric emp tying study. She reports unable to get tests done until May 20, 2021.? Denies any new complaint of chest pain or shortness of breath or abdominal pain or fever or chills Denies any cough Denies any weakness or numbness. Pmx: history of hypertension, fibromyalgia, hypercholesteremia, anemia, depression. Social history: Denies any smoking or recreation drugs or alcohol use. Past surgical history: As above in HPI, in addition patient also had 2 and breast reduction surgery also. Review of Systems Review of Systems: As above. Yes all other systems are reviewed and are n egative [facility] Medical History Anxiety and depression BMI 35.0-35.9,adult Cervical radiculopathy Difficulty sleeping GERD (gastroesophageal reflux disease) HTN (hypertension) Hx of hemorrhoids Hypercholesterolemia Hypersomnolence Impaired glucose tolerance Insomnia Intestinal malabsorption following gastrectomy Obesity (BMI 30-39.9) PTSD (post-traumatic stress disorder) Snoring Vitamin D deficiency Weight gain following gastric bypass surgery Family History Father Diabetes Mother High blood pressure High cholesterol Dementia Daughter Healthy female Son No problems noted. Son High blood pressure High cholesterol Pertinent family history: hx of htn ,hlp -mother, Surgical History H/O: History of carpal tunnel release History of colonoscopy History of excision of mass History of gastric surgery History of neck surgery History of removal of laparoscopic gastric banding device History of tubal ligation Hx of abdominoplasty Hx of breast reduction, elective Hx of endoscopy LAP-BAND surgery status S/P laparoscopic sleeve gastrectomy Status post panniculectomy Social History Household Members: Children Housing: House Alcohol intake: never Patient Tobacco Use Status: Former Tobacco user Tobacco use type: Cigarette Years Smoked: stopped 1990 Use of substances other than those prescribed or required for medical reasons: No Advance Directives: No Advance Directives Information Provided: No service: No Current occupational status: unemployed Meds Allergies Allergy/AdvReac Type Severity Reaction Status Date / Time No Known Allergies Allergy Verified 03/07/21 10:03 [No Known Allergies*] Active Medications: Current Medications Bupropion HCl (Bupropion Hcl Xl 300 Mg Tab.Er.24h) 300 mg PO DAILY [facility] Clonazepam (Clonazepam 0.5 Mg Tablet) 0.5 mg PO DAILY PRN PRN Reason: Anxiety Fluoxetine HCl (Fluoxetine Hcl 20 Mg Capsule) 40 mg PO DAILY [facility] Multivitamins/Vitamin C (Multivitamin Tablet) 1 tab PO DAILY [facility] Non-Formulary Medication (Calcium Carbonate [Calcium 500]) 500 mg PO DAILY [facility] Non-Formulary Medication (Ferrous Sulfate) 325 mg PO DAILY [facility] Omeprazole (Omeprazole 20 Mg Capsule.Dr) 20 mg PO BID [facility] Ondansetron HCl (Ondansetron Hcl 4 Mg/2 Ml Vial) 4 mg IVPUSH Q6H [facility] Pantoprazole Sodium (Pantoprazole Sodium 40 Mg/10 Ml Vial) 40 mg IVPUSH BID [facility] Pharmacy Consult (Consult Rx Perform Med Rec) 1 each MISCELLANE ONCE PRN PRN Reason: Consult order Prazosin HCl (Prazosin Hcl 1 Mg Capsule) 2 mg PO BEDTIME [facility]; Protocol Sodium Chloride (0.9 % Sodium Chloride Flush 3 Ml Syringe) 3 ml IVFLUSH QSHIFT [facility] Vitamin D (Cholecalciferol (Vitamin D3) 25 Mcg Tablet) 125 mcg PO DAILY [facility] Ziprasidone (Ziprasidone 20 Mg Capsule) 20 mg PO BEDTIME [facility] Home Medications Medication Instructions Recorded Confirmed Last Taken Type bupropion HCl 150 mg 24 hr tablet, 300 mg PO QAM 03/05/20 03/09/21 03/09/21 History extended release cholecalciferol (vitamin D3) 125 125 mcg PO DAILY 06/08/20 03/09/21 03/09/21 History mcg (5,000 unit) tablet (Vitamin D3) clonazepam 0.5 mg tablet 0.5 mg PO DAILY PRN 06/08/20 03/09/21 03/09/21 History fluoxetine 20 mg capsule (Prozac) 40 mg PO DAILY 06/08/20 03/09/21 03/09/21 History zaxidybzimdu-vuhpeyeu-cmrtar tablet 1 tab PO DAILY 06/08/20 03/09/21 03/09/21 History calcium carbonate 500 mg calcium 500 mg PO DAILY 08/11/20 03/09/21 03/09/21 History (1,250 mg) chewable tablet (Calcium 500) prazosin 1 mg capsule 2 mg PO BEDTIME cap 12/22/20 03/09/21 03/08/21 History ondansetron HCl 4 mg tablet 1 tab PO BID-TID PRN 03/09/21 03/09/21 03/09/21 History Physical Exam Vital Signs and Narrative: Vital Signs: Last Vital Signs Temp 98.5 F 03/09/21 17:33 Pulse 69 03/09/21 17:33 Resp 18 03/09/21 17:33 BP 142/84 H 03/09/21 17:33 Pulse Ox 98 03/09/21 17:33 Body Mass Index 28.7 Physical exam: Appearance: Alert.? Oriented X3.? not in distress.? Eyes: Pupils equal, round and reactive to light.? Sclera nonicteric.? ENT: Pharynx normal.? Moist mucous membranes. cvs: rrr, [id number] , no murmur res: clear to auscultation ,no rhonchii or wheezing abd: no rebound or guarding ,nt, bs present. ext pulses present , no cyanosis ,Gait well balanced well coordinated. neuro: axo3 , nonfocal. Results Labs CBC and Chem 7: 03/09/21 17:05 03/09/21 17:27 Labs: Laboratory Results - last 24 hr 03/09/21 03/09/21 03/09/21 17:05 17:05 17:05 MCV 86.2 MCH 28.6 MCHC 33.2 RDW 13.3 Plt Count 322 MPV 9.6 Immature Gran % (Auto) 0.1 Neut % (Auto) 58.6 Lymph % (Auto) 30.1 [place] % (Auto) 8.6 Eos % (Auto) 2.2 Baso % (Auto) 0.4 Lymph # (Auto) 2.0 [place] # (Auto) 0.6 Eos # (Auto) 0.2 Baso # (Auto) 0.0 Abs Immat Gran (auto) 0.01 Absolute Neuts (auto) 4.0 Absolute Nucleated RBC 0.000 Nucleated RBC % (auto) 0.0 Anion Gap Estim Creat Clear Calc Estimated GFR Random Glucose Calcium Magnesium Total Bilirubin Direct Bilirubin AST ALT Alkaline Phosphatase Total Protein Albumin Lipase Urine Color YELLOW Urine Appearance CLEAR Urine pH 6.0 Ur Specific [place] 1.010 Urine Protein NEG Urine Glucose (UA) NEG Urine Ketones NEG Urine Blood NEG Urine Nitrite NEG Ur Leukocyte Esterase NEG Urine Opiates Screen Urine Fentanyl Screen Ur Barbiturates Screen Ur Phencyclidine Scrn Ur Amphetamines Screen U Benzodiazepines Scrn Urine Cocaine Screen U Marijuana (THC) Screen COVID-19 (YIN) Negative COVID-19 Clin Com See Note 03/09/21 03/09/21 17:05 17:27 MCV MCH MCHC RDW Plt Count MPV Immature Gran % (Auto) Neut % (Auto) Lymph % (Auto) [place] % (Auto) Eos % (Auto) Baso % (Auto) Lymph # (Auto) [place] # (Auto) Eos # (Auto) Baso # (Auto) Abs Immat Gran (auto) Absolute Neuts (auto) Absolute Nucleated RBC Nucleated RBC % (auto) Anion Gap 11 L Estim Creat Clear Calc 65.2 Estimated GFR > 60 Random Glucose 93 Calcium 9.2 D Magnesium 2.0 Total Bilirubin 0.2 Direct Bilirubin < 0.2 AST 25 ALT 22 Alkaline Phosphatase 63 Total Protein 6.0 L Albumin 4.0 Lipase 63 Urine Color Urine Appearance Urine pH Ur Specific [place] Urine Protein Urine Glucose (UA) Urine Ketones Urine Blood Urine Nitrite Ur Leukocyte Esterase Urine Opiates Screen Not Detected Urine Fentanyl Screen Not Detected Ur Barbiturates Screen Not Detected Ur Phencyclidine Scrn Not Detected Ur Amphetamines Screen Not Detected U Benzodiazepines Scrn Not Detected Urine Cocaine Screen Not Detected U Marijuana (THC) Screen Not Detected COVID-19 (YIN) COVID-19 Clin Com Assessment and Plan (1) Intractable vomiting: Qualifiers: Nausea presence: unspecified Vomiting type: unspecified Qualified Code(s): R11.10 - Vomiting, unspecified Status: Acute (2) Weight loss, abnormal: Status: Acute 55-year-old female with multiple comorbidities and abdominal surgery for weight loss in the [place] came with intractable nausea vomiting and weight loss as above. 1. Intractable nausea vomiting: Differential diagnosis : He at all hernia versus GERD versus esophageal motility disorders versus ulcer. Lab imaging personally reviewed and interpreted-patient had mild anemia hemoglobin of 11, normal renal function potassium 4.3. Abdomen is benign so no new abdominal imaging study added this time. If new abdominal symptoms we will add CT abdomen. Decreased p.o. intake Will start patient on IV fluid, Zofran, ppi. GI evaluation-for EGD and possible septic study. Patient is NPO for morning EGD possible. 2. htn: Hold lisinopril hydrochlorothiazide Will add amlodipine 3. Hypercholesteremia: Continue statin 4. Mild normochromic anemia: Patient is on iron supplements, follows up with GI outpatient. 5. PTSD and anxiety depression: Continue bupropion, zasperidone DVT prophylaxis with Lovenox Above management discussed with the patient in detail length she understand and in agreement with above plan including code status , patient full code, time spent 70 minute Quality Stroke Does the patient have a stroke diagnosis?: No VTE Prior VTE?: No VTE Risk Level:: Medical - moderate - high VTE Device Contraindication: N/A - Device Ordered VTE Drug Contraindication: N/A - Med Ordered
[2021-03-09] MEDS: Lactated Ringers 1,000 ML 100 ML IVCONT (20:00)
--- NOTE | 2021-03-09 20:00 | PC.NURSE ---
medicated per mar.
[2021-03-09] MEDS: Enoxaparin Sodium 40 MG/0.4 ML SYRINGE SUBCUT (20:06)
[2021-03-09] MEDS: ondansetron HCL 4 MG/2 ML VIAL IVPUSH (20:06)
[2021-03-09] MEDS: Pantoprazole Sodium 40 MG/10 ML VIAL IVPUSH (20:06)
[2021-03-09 20:31] VITALS: BP 141/88; PULSE 76; RESP 20; TEMP 37; O2SAT 100
[2021-03-09] MEDS: Ziprasidone 20 MG CAPSULE PO (20:32)
[2021-03-09] MEDS: Prazosin HCL 1 MG CAPSULE 2 MG PO (20:32)
[2021-03-09 20:37] VITALS: BMI 28.7
[2021-03-09 23:21] VITALS: BP 111/63; PULSE 69; RESP 18; TEMP 36.9; O2SAT 98
[2021-03-10 03:47] VITALS: BP 98/61; PULSE 67; RESP 18; TEMP 36.9; O2SAT 98
[2021-03-10] MEDS: ondansetron HCL 4 MG/2 ML VIAL IVPUSH ×3 (03:54→20:02)
[2021-03-10] MEDS: Omeprazole 20 MG CAPSULE.DR PO (06:01)
[2021-03-10 07:02] LABS: Anion Gap 10 (12-20); Blood Urea Nitrogen 10 mg/dL (9-16); Carbon Dioxide 28 mmol/L (22-29); Chloride 106 mmol/L (96-108); Creatinine Clr Calc Pharmacy 63.8; Estimated Glomerular Filt Rate > 60; Glucose Random 83 mg/dL (60-115); Potassium 3.9 mmol/L (3.3-5.1); Sodium 140 mmol/L (135-145)
[2021-03-10 07:05] VITALS: BP 130/81; PULSE 67; RESP 18; TEMP 36.4; O2SAT 96
--- NOTE | 2021-03-10 08:54 | MHC.CM.PN ---
CM met with Patient at bedside and addressed MONAE, providing her with the original and placing a copy on the chart. Patient lives in a house with her 3 adult children and she is functionally independent.Patient's goal is to return home/no services and CM has initiated and will follow for dc planning. PCP is Dr. Demi Lr.
--- NOTE | 2021-03-10 08:56 | PM.GICN ---
History of Present Illness Data of Consult Service Date: 03/10/21 Requesting physician: Susan Dickinson Primary Care Provider: Demi Lr MD HPI Reason for consult: nausea, vomiting 55 y/o female with history of morbid obesity,, s/p laproscopic sleeve gastrectomy 2016 (prior lap band before this) , hiatal hernia, and GERD who I am seeing for nausea and vomiting Patient has been having symptoms of nausea and food sticking in epigastrium and throat since November. no problems with swallowing liquids generally. She has daily vomiting of ingested food with heartburn. Last few days have been worse than usual and can;t keep anything down although feeling better now in hospital and managing fluids. she denies constipation, diarrhea,, rectal bleeding, melena. no chest pain. She reports an unintentional 40 lb weight loss since November. She has no fever or chills.? She had unremarkable CT scan about 1 month ago.? She had an upper GI series done in July with esophageal dysmotility and hiatal hernia noted Review of Systems Review of Systems: As Constitutional : + Weight loss, No Fever, No Chills ENT/Mouth : No sore throat, No Rhinorrhea Eyes: No Swelling, No Redness Cardiovascular : No Chest Pain, No SOB, No Edema Respiratory : No Cough, No Sputum, No Wheezing Gastrointestinal : see HPI Genitourinary : NO Dysuria, No Urinary Frequency, No Hematuria, No Urgency Musculoskeletal : No joint pain, No Myalgias, No Joint Swelling Skin : No Skin Lesions, No rash Neuro : No Weakness, No Numbness, No Dizziness, No Headache Psych : No Anxiety/Panic, No Depression Heme/Lymph: No Bruising, No Lymphadenopathy Endocrine : No Polyuria, No Polydipsia All other systems reviewed and are negative. Yes all other systems are reviewed and are negative Gastrointestinal: Gastrointestinal: Reports nausea PMFSH Past Medical History Medical History Anxiety and depression BMI 35.0-35.9,adult Cervical radiculopathy Difficulty sleeping GERD (gastroesophageal reflux disease) HTN (hypertension) Hx of hemorrhoids Hypercholesterolemia Hypersomnolence Impaired glucose tolerance Insomnia Intestinal malabsorption following gastrectomy Obesity (BMI 30-39.9) PTSD (post-traumatic stress disorder) Snoring Vitamin D deficiency Weight gain following gastric bypass surgery Family History Family History Father Diabetes Mother High blood pressure High cholesterol Dementia Daughter Healthy female Son No problems noted. Son High blood pressure High cholesterol Pertinent family history: hx of htn ,hlp -mother, Surgical History Surgical History H/O: History of carpal tunnel release History of colonoscopy History of excision of mass History of gastric surgery History of neck surgery History of removal of laparoscopic gastric banding device History of tubal ligation Hx of abdominoplasty Hx of breast reduction, elective Hx of endoscopy LAP-BAND surgery status S/P laparoscopic sleeve gastrectomy Status post panniculectomy Social History Social History Household Members: Children Housing: House Alcohol intake: never Patient Tobacco Use Status: Former Tobacco user Tobacco use type: Cigarette Years Smoked: stopped 1989 service: No Current occupational status: disabled Meds Allergies Allergy/AdvReac Type Severity Reaction Status Date / Time No Known Allergies Allergy Verified 03/07/21 10:03 [No Known Allergies*] Active Medications: Current Medications Bupropion HCl (Bupropion Hcl Xl 300 Mg Tab.Er.24h) 300 mg PO DAILY [facility] Calcium Carbonate (Calcium Carbonate 500 Mg Tablet) 500 mg PO DAILY [facility] Clonazepam (Clonazepam 0.5 Mg Tablet) 0.5 mg PO DAILY PRN PRN Reason: Anxiety Enoxaparin Sodium (Enoxaparin Sodium 40 Mg/0.4 Ml Syringe) 40 mg SUBCUT Q24H [facility] Last Admin: 03/09/21 20:06 Dose: 40 mg Documented by: Ferrous Sulfate (Ferrous Sulfate 324 Mg Tablet.) 324 mg PO DAILY [facility] Fluoxetine HCl (Fluoxetine Hcl 20 Mg Capsule) 40 mg PO DAILY [facility] Lactated Ringer's (Lr) 1,000 mls @ 100 mls/hr IVCONT .Q10H [facility] Last Admin: 03/10/21 04:39 Dose: Not Given Documented by: Multivitamins/Vitamin C (Multivitamin Tablet) 1 tab PO DAILY [facility] Omeprazole (Omeprazole 20 Mg Capsule.) 20 mg PO BID@0630,1630 [facility] Last Admin: 03/10/21 06:01 Dose: 20 mg Documented by: Ondansetron HCl (Ondansetron Hcl 4 Mg/2 Ml Vial) 4 mg IVPUSH Q8H [facility] Last Admin: 03/10/21 03:54 Dose: 4 mg Documented by: Pantoprazole Sodium (Pantoprazole Sodium 40 Mg/10 Ml Vial) 40 mg IVPUSH BID [facility] Last Admin: 03/09/21 20:06 Dose: 40 mg Documented by: Pharmacy Consult (Consult Rx Perform Med Rec) 1 each MISCELLANE ONCE PRN PRN Reason: Consult order Prazosin HCl (Prazosin Hcl 1 Mg Capsule) 2 mg PO BEDTIME [facility]; Protocol Last Admin: 03/09/21 20:32 Dose: 2 mg Documented by: Sodium Chloride (0.9 % Sodium Chloride Flush 3 Ml Syringe) 3 ml IVFLUSH QSHIFT [facility] Last Admin: 03/10/21 03:59 Dose: Not Given Documented by: Vitamin D (Cholecalciferol (Vitamin D3) 25 Mcg Tablet) 125 mcg PO DAILY [facility] Ziprasidone (Ziprasidone 20 Mg Capsule) 20 mg PO BEDTIME [facility] Last Admin: 03/09/21 20:32 Dose: 20 mg Documented by: Home Medications Medication Instructions Recorded Confirmed Last Taken Type bupropion HCl 150 mg 24 hr tablet, 300 mg PO QAM 03/05/20 03/09/21 03/09/21 History extended release cholecalciferol (vitamin D3) 125 125 mcg PO DAILY 06/08/20 03/09/21 03/09/21 History mcg (5,000 unit) tablet (Vitamin D3) clonazepam 0.5 mg tablet 0.5 mg PO DAILY PRN 06/08/20 03/09/21 03/09/21 History fluoxetine 20 mg capsule (Prozac) 40 mg PO DAILY 06/08/20 03/09/21 03/09/21 History sutoouvbwlja-ftrjfwib-pyhvth tablet 1 tab PO DAILY 06/08/20 03/09/21 03/09/21 History calcium carbonate 500 mg calcium 500 mg PO DAILY 08/11/20 03/09/21 03/09/21 History (1,250 mg) chewable tablet (Calcium 500) prazosin 1 mg capsule 2 mg PO BEDTIME cap 12/22/20 03/09/21 03/08/21 History ondansetron HCl 4 mg tablet 1 tab PO BID-TID PRN 03/09/21 03/09/21 03/09/21 History Physical Exam Vital Signs: Vital Signs: Last Vital Signs Temp 97.5 F 03/10/21 07:05 Pulse 67 03/10/21 07:05 Resp 18 03/10/21 07:05 BP 130/81 03/10/21 07:05 Pulse Ox 96 03/10/21 07:05 Body Mass Index 28.7 EXAM: GENERAL: The patient is well developed and nontoxic. VITAL SIGNS:see workflow HEENT: Nonicteric sclerae, PERRLA, EOMI. Oropharynx clear. Moist mucous membranes. Conjunctivae appear well perfused. No thyroid mass. CHEST: Chest wall is nontender. HEART: Regular rate and rhythm without murmurs. LUNGS: Clear to auscultation bilaterally. ABDOMEN: Soft, positive bowel sounds, mildly tender epigastrium, no organomegaly.no flank tenderness SKIN: No rash, no excessive bruising, petechiae, or purpura. NEUROLOGIC: Cranial nerves II-XII intact without motor/sensory deficit. Results Labs CBC & Chem 7: 03/09/21 17:05 03/10/21 06:19 Labs: Short CBC 03/09/21 Range/Units 17:05 WBC 6.8 (4.8-10.8) X10*3/uL Hgb 11.0 L (12.0-16.0) g/dl Hct 33.1 L (37.0-47.0) % Plt Count 322 (160-400) X10*3/uL BMP 03/09/21 03/10/21 17:27 06:19 Sodium 137 140 Potassium 4.3 3.9 Chloride 104 106 Carbon Dioxide 26 28 BUN 13 10 Creatinine 0.89 0.91 Calcium 9.2 D 9.0 Liver Function 03/09/21 Range/Units 17:27 Total Bilirubin 0.2 (0.0-1.0) mg/dL Direct Bilirubin < 0.2 (0.0-0.5) mg/dL AST 25 (5-31) U/L ALT 22 (0-31) U/L Alkaline Phosphatase 63 (39-117) U/L Albumin 4.0 (3.5-5.0) g/dL Urine 03/09/21 Range/Units 17:05 Urine Color YELLOW Urine Appearance CLEAR Urine pH 6.0 (5.0-8.0) Ur Specific [place] 1.010 (1.005-1.025) Urine Protein NEG (NEG-TRACE) MG/DL Urine Glucose (UA) NEG (NEG) MG/DL Assessment and Plan (1) Intractable vomiting: Qualifiers: Nausea presence: unspecified Vomiting type: unspecified Qualified Code(s): R11.10 - Vomiting, unspecified Status: Acute (2) Unintentional weight loss: Status: Acute 1/ Nausea, vomiting, fullness and dysphagia, need to r/o GOO, ulcers, upper GI mass or inflammation, stricture related to surgery PLAN: 1/ EGD with dilation 2/ allow clears if tolerated 3/ if EGd neg then GES Procedures Date of Service Date of Service: 03/10/21
[2021-03-10] MEDS: 0.9 % Sodium Chloride Flush 3 ML SYRINGE IVFLUSH (10:16)
[2021-03-10] MEDS: Pantoprazole Sodium 40 MG/10 ML VIAL IVPUSH ×2 (10:16→20:02)
[2021-03-10] MEDS: FLUoxetine HCl 20 MG CAPSULE 40 MG PO (10:17)
[2021-03-10] MEDS: Ferrous Sulfate 324 MG TABLET.DR PO (10:18)
[2021-03-10] MEDS: buPROPion HCl XL 300 MG TAB.ER.24H PO (10:18)
[2021-03-10] MEDS: Cholecalciferol (Vitamin D3) 25 MCG TABLET 125 MCG PO (10:18)
[2021-03-10] MEDS: Multivitamin TABLET 1 TAB PO (10:18)
[2021-03-10] MEDS: Lactated Ringers 1,000 ML 100 ML IVCONT ×2 (10:19→20:06)
[2021-03-10 10:53] VITALS: BP 135/79; PULSE 60; RESP 18; TEMP 36.2; O2SAT 97
--- NOTE | 2021-03-10 13:30 | HO.PM.IMPN ---
Subjective Subjective Date of Service: 03/10/21 Interval History: Dysphagia Review of Systems Patient still has nausea but vomiting has improving No abdominal discomfort today Will start clear liquid Physical Exam Vital Signs: Vital Signs: Last Vital Signs Temp 97.2 F 03/10/21 10:53 Pulse 60 03/10/21 10:53 Resp 18 03/10/21 10:53 BP 135/79 03/10/21 10:53 Pulse Ox 97 03/10/21 10:53 Body Mass Index 28.7 Appearance: Alert. ? Oriented X3.? no t in distress.? Ey es: Pupils equal, round and reactive to light.? Sclera nonicteric.? ENT: Pharynx normal.? Moist mucous membr anes. cvs: rrr, s1 [id number] , no murmu r res: clear to au scultation ,no rho nchii or wheezing abd: no rebound or guarding ,nt , bs present. ext puls es present , no cy anosis ,Gait well balanced well coor dinated. neuro: ax o3 , nonfocal. Objective Data Active Medications Bupropion HCl (Bupropion Hcl Xl 300 Mg Tab.Er.24h) 300 mg PO DAILY [facility] Last Admin: 03/10/21 10:18 Dose: 300 mg Documented by: STEVE Calcium Carbonate (Calcium Carbonate 500 Mg Tablet) 500 mg PO DAILY [facility] Last Admin: 03/10/21 10:18 Dose: 500 mg Documented by: STEVE Clonazepam (Clonazepam 0.5 Mg Tablet) 0.5 mg PO DAILY PRN PRN Reason: Anxiety Enoxaparin Sodium (Enoxaparin Sodium 40 Mg/0.4 Ml Syringe) 40 mg SUBCUT Q24H [facility] Last Admin: 03/09/21 20:06 Dose: 40 mg Documented by: DONALDO Ferrous Sulfate (Ferrous Sulfate 324 Mg Tablet.) 324 mg PO DAILY [facility] Last Admin: 03/10/21 10:18 Dose: 324 mg Documented by: STEVE Fluoxetine HCl (Fluoxetine Hcl 20 Mg Capsule) 40 mg PO DAILY [facility] Last Admin: 03/10/21 10:17 Dose: 40 mg Documented by: STEVE Lactated Ringer's (Lr) 1,000 mls @ 100 mls/hr IVCONT .Q10H [facility] Last Admin: 03/10/21 10:19 Dose: 100 mls/hr Documented by: STEVE Multivitamins/Vitamin C (Multivitamin Tablet) 1 tab PO DAILY [facility] Last Admin: 03/10/21 10:18 Dose: 1 tab Documented by: STEVE Omeprazole (Omeprazole 20 Mg Capsule.) 20 mg PO BID@0630,1630 [facility] Last Admin: 03/10/21 06:01 Dose: 20 mg Documented by: NATALIE Ondansetron HCl (Ondansetron Hcl 4 Mg/2 Ml Vial) 4 mg IVPUSH Q8H [facility] Last Admin: 03/10/21 10:16 Dose: 4 mg Documented by: STEVE Pantoprazole Sodium (Pantoprazole Sodium 40 Mg/10 Ml Vial) 40 mg IVPUSH BID [facility] Last Admin: 03/10/21 10:16 Dose: 40 mg Documented by: STEVE Pharmacy Consult (Consult Rx Perform Med Rec) 1 each MISCELLANE ONCE PRN PRN Reason: Consult order Prazosin HCl (Prazosin Hcl 1 Mg Capsule) 2 mg PO BEDTIME [facility]; Protocol Last Admin: 03/09/21 20:32 Dose: 2 mg Documented by: ABBEY Sodium Chloride (0.9 % Sodium Chloride Flush 3 Ml Syringe) 3 ml IVFLUSH QSHIFT [facility] Last Admin: 03/10/21 10:16 Dose: 3 ml Documented by: STEVE Vitamin D (Cholecalciferol (Vitamin D3) 25 Mcg Tablet) 125 mcg PO DAILY [facility] Last Admin: 03/10/21 10:18 Dose: 125 mcg Documented by: STEVE Ziprasidone (Ziprasidone 20 Mg Capsule) 20 mg PO BEDTIME [facility] Last Admin: 03/09/21 20:32 Dose: 20 mg Documented by: ABBEY Labs CBC & Chem 7: 03/09/21 17:05 03/10/21 06:19 Labs: Laboratory Results - last 24 hr 03/09/21 03/09/21 03/09/21 17:05 17:05 17:05 MCV 86.2 MCH 28.6 MCHC 33.2 RDW 13.3 Plt Count 322 MPV 9.6 Immature Gran % (Auto) 0.1 Neut % (Auto) 58.6 Lymph % (Auto) 30.1 [place] % (Auto) 8.6 Eos % (Auto) 2.2 Baso % (Auto) 0.4 Lymph # (Auto) 2.0 [place] # (Auto) 0.6 Eos # (Auto) 0.2 Baso # (Auto) 0.0 Abs Immat Gran (auto) 0.01 Absolute Neuts (auto) 4.0 Absolute Nucleated RBC 0.000 Nucleated RBC % (auto) 0.0 Anion Gap Estim Creat Clear Calc Estimated GFR Random Glucose Calcium Magnesium Total Bilirubin Direct Bilirubin AST ALT Alkaline Phosphatase Total Protein Albumin Lipase Urine Color YELLOW Urine Appearance CLEAR Urine pH 6.0 Ur Specific [place] 1.010 Urine Protein NEG Urine Glucose (UA) NEG Urine Ketones NEG Urine Blood NEG Urine Nitrite NEG Ur Leukocyte Esterase NEG Urine Opiates Screen Urine Fentanyl Screen Ur Barbiturates Screen Ur Phencyclidine Scrn Ur Amphetamines Screen U Benzodiazepines Scrn Urine Cocaine Screen U Marijuana (THC) Screen COVID-19 (YIN) Negative COVID-19 Clin Com See Note 03/09/21 03/09/21 03/10/21 17:05 17:27 06:19 MCV MCH MCHC RDW Plt Count MPV Immature Gran % (Auto) Neut % (Auto) Lymph % (Auto) [place] % (Auto) Eos % (Auto) Baso % (Auto) Lymph # (Auto) [place] # (Auto) Eos # (Auto) Baso # (Auto) Abs Immat Gran (auto) Absolute Neuts (auto) Absolute Nucleated RBC Nucleated RBC % (auto) Anion Gap 11 L 10 L Estim Creat Clear Calc 65.2 63.8 Estimated GFR > 60 > 60 Random Glucose 93 83 Calcium 9.2 D 9.0 Magnesium 2.0 Total Bilirubin 0.2 Direct Bilirubin < 0.2 AST 25 ALT 22 Alkaline Phosphatase 63 Total Protein 6.0 L Albumin 4.0 Lipase 63 Urine Color Urine Appearance Urine pH Ur Specific [place] Urine Protein Urine Glucose (UA) Urine Ketones Urine Blood Urine Nitrite Ur Leukocyte Esterase Urine Opiates Screen Not Detected Urine Fentanyl Screen Not Detected Ur Barbiturates Screen Not Detected Ur Phencyclidine Scrn Not Detected Ur Amphetamines Screen Not Detected U Benzodiazepines Scrn Not Detected Urine Cocaine Screen Not Detected U Marijuana (THC) Screen Not Detected COVID-19 (YIN) COVID-19 Clin Com Assessment and Plan (1) Unintentional weight loss: Status: Acute (2) Nausea and vomiting: Status: Acute Assessment and Plan: 55-year-old female with multiple comorbidities and abdominal surgery for weight loss in the [place] came with intractable nausea vomiting and weight loss as above. 1. Intractable nausea vomiting:? Differential diagnosis :? He at all hernia versus GERD versus esophageal motility disorders versus ulcer. Lab imaging personally reviewed and interpreted-patient had mild anemia hemoglobin of 11, normal renal function potassium 4.3. Abdomen is benign so no new abdominal imaging study added this time. If new abdominal symptoms we will add CT abdomen. Decreased p.o. intake Will start patient on IV fluid, Zofran, ppi., clear liquid diet GI evaluation-for EGD and possible septic study. Gi eval-EGD possible. 2. htn: Blood pressure fluctuating, Hold lisinopril hydrochlorothiazide If blood pressure persistently above 140s we will add small dose amlodipine. 3. Hypercholesteremia:? Continue statin? 4. Mild normochromic anemia: Patient is on iron supplements, follows up with GI outpatient. 5. PTSD and anxiety depression: Continue bupropion, zasperidone DVT prophylaxis with Lovenox Quality Stroke Does the patient have a stroke diagnosis?: No VTE Prior VTE?: No VTE Risk Level:: Medical - moderate - high VTE Device Contraindication: N/A - Device Ordered VTE Drug Contraindication: N/A - Med Ordered
[2021-03-10 20:00] VITALS: BP 138/87; PULSE 67; RESP 18; TEMP 36.6; O2SAT 100
[2021-03-10 20:02] VITALS: BP 148/82; PULSE 66
[2021-03-10] MEDS: Prazosin HCL 1 MG CAPSULE 2 MG PO (20:02)
[2021-03-10] MEDS: Enoxaparin Sodium 40 MG/0.4 ML SYRINGE SUBCUT (20:05)
[2021-03-10] MEDS: Ziprasidone 20 MG CAPSULE PO (20:05)
[2021-03-11] VITALS (7 sets, daily range): BP systolic 113–166; BP diastolic 72–83; PULSE 60–72; RESP 16–19; TEMP 36.2–37.1; O2SAT 95–100
[2021-03-11] MEDS: ondansetron HCL 4 MG/2 ML VIAL IVPUSH ×2 (04:52→19:44)
[2021-03-11] MEDS: Lactated Ringers 1,000 ML 100 ML IVCONT ×2 (04:52→19:51)
[2021-03-11] MEDS: 0.9 % Sodium Chloride Flush 3 ML SYRINGE IVFLUSH ×2 (09:06→19:44)
[2021-03-11] MEDS: Cholecalciferol (Vitamin D3) 25 MCG TABLET 125 MCG PO (09:06)
[2021-03-11] MEDS: Multivitamin TABLET 1 TAB PO (09:07)
[2021-03-11] MEDS: FLUoxetine HCl 20 MG CAPSULE 40 MG PO (09:07)
[2021-03-11] MEDS: Ferrous Sulfate 324 MG TABLET.DR PO (09:07)
[2021-03-11] MEDS: buPROPion HCl XL 300 MG TAB.ER.24H PO (09:07)
[2021-03-11] MEDS: Pantoprazole Sodium 40 MG/10 ML VIAL IVPUSH ×2 (09:07→19:44)
--- NOTE | 2021-03-11 11:08 | MHC.CM.PN ---
Per ROUNDS discussion,Patient is not yet medically cleared for dc (EGD today). Home is the goal for dc and CM will follow for possible need to adjust the dc plan.
--- NOTE | 2021-03-11 12:17 | MHC.SHP ---
Pre-Procedural Eval Section A Date of Service: 03/11/21 The patient is an INPATIENT: Yes The History & Physical has been completed within 30 days and I have reviewed it.: Yes Section B Chief Complaint: vomiting Allergies: Allergies Allergy/AdvReac Type Severity Reaction Status Date / Time No Known Allergies Allergy Verified 03/07/21 10:03 [No Known Allergies*] Plan Diagnosis/Plan: Unchanged I have reviewed the history and physical and performed a pertinent physical examination on my patient. No changes have occurred unless specified.
--- NOTE | 2021-03-11 12:17 | PM.OP ---
Brief Operative Note Date of Service: 03/11/21 Pre-op diagnosis: dysphagia Post-op diagnosis: same Surgeon: Marco Antonio Royal MD Was an Furnace Room Supervisor used for this Procedure?: No
--- NOTE | 2021-03-11 12:17 | W.PM.OPN ---
Operative Note Operative Note Date of Service: 03/11/21 Narrative: Procedure Description: EGD FLEXIBLE TRANSORAL UPPER GASTROINTESTINAL ENDOSCOPY UPPER ENDOSCOPY Consent: Indications for the procedure and potential complications of bleeding, perforation, reaction to medications and missed diagnosis were discussed with the patient and informed consent was obtained. Instrument: Olympus GIF H 190 J mid size upper endoscope Monitoring: Vital signs and clinical assessment, continuous EKG monitoring, Pulse oximetry, Carbon Dioxide monitoring and blood pressure monitoring were done throughout the procedure. Procedure: The patient was placed in the left lateral decubitis position and pre-procedure medications were administered and a bite block was placed. The endoscope was inserted into the mouth and advanced under direct vision to the third part of duodenum. A careful inspection was made as the upper endoscope was withdrawn including a retroflexed examination of the proximal stomach; Findings and interventions are described below. Findings: Larynx:normal Esophagus: GE junction at 34 cm, diaphragm hiatus at 37 cm, consistent with 3 cm hiatal hernia bx taken. In the hernial sac a tablet was lodged an this was pushed down into the stomach. distal and proximal esophagus dilated to 20 mm without tears seen. There appeared to be tertiary contractions of esophagus. Stomach: Patchy gastric erythema. Biopsies were obtained. Grade 2 flap valve on retroflexed examination of the cardia. post surgical changes of sleeve noted, no stricture Duodenum: Normal bulb and descending duodenum, bx taken Intervention: Biopsies as noted above, balloon dilation Impression/Findings: hiatal hernia PLAN: allow clears and advance diet as tolerated if ongoing sx then gastric emptying study if this is neg then next step would be manometry to r/o esophageal dysmotility fred achalasia
--- NOTE | 2021-03-11 12:33 | HO.ANESPROP2 ---
HPI - Anesthesia Eval Consult details Narrative: vomiting PMFSH Active Problems Active Problems: All Active Problems (Updated 03/09/21 @ 18:02 by DUTCH Hernandez) Intractable vomiting (Acute) Unintentional weight loss (Acute) Weight loss, abnormal (Acute) Nausea and vomiting (Acute) Nausea (Acute) Fibromyalgia (Acute) Annual physical exam (Acute) Difficulty sleeping (Acute) Snoring (Acute) Hypersomnolence (Acute) Weight gain following gastric bypass surgery (Acute) Obesity (BMI 30-39.9) (Acute) BMI 35.0-35.9,adult (Acute) S/P laparoscopic sleeve gastrectomy (Acute) Intestinal malabsorption following gastrectomy (Acute) Shoulder pain, right (Acute) Urge incontinence (Acute) Neck pain (Acute) PTSD (post-traumatic stress disorder) (Acute) Polyarthralgia (Acute) Plantar fasciitis of left foot (Acute) Anemia (Acute) Impaired glucose tolerance (Acute) Hypercholesterolemia (Acute) Anxiety and depression (Acute) GERD (gastroesophageal reflux disease) (Acute) HTN (hypertension) (Acute) Polymyalgia (Acute) Past Medical History Medical History Anxiety and depression BMI 35.0-35.9,adult Cervical radiculopathy Difficulty sleeping GERD (gastroesophageal reflux disease) HTN (hypertension) Hx of hemorrhoids Hypercholesterolemia Hypersomnolence Impaired glucose tolerance Insomnia Intestinal malabsorption following gastrectomy Obesity (BMI 30-39.9) PTSD (post-traumatic stress disorder) Snoring Vitamin D deficiency Weight gain following gastric bypass surgery Family History Family History Father Diabetes Mother High blood pressure High cholesterol Dementia Daughter Healthy female Son No problems noted. Son High blood pressure High cholesterol Family history of problems with anesthesia: No Surgical History Surgical History H/O: History of carpal tunnel release History of colonoscopy History of excision of mass History of gastric surgery History of neck surgery History of removal of laparoscopic gastric banding device History of tubal ligation Hx of abdominoplasty Hx of breast reduction, elective Hx of endoscopy LAP-BAND surgery status S/P laparoscopic sleeve gastrectomy Status post panniculectomy History of Problems with Anesthesia: No Social History Social History Household Members: Children Housing: House Alcohol intake: never Patient Tobacco Use Status: Former Tobacco user Tobacco use type: Cigarette Years Smoked: 1989 service: No Current occupational status: disabled Meds Allergies Allergy/AdvReac Type Severity Reaction Status Date / Time No Known Allergies Allergy Verified 03/07/21 10:03 [No Known Allergies*] Active Medications: Current Medications Bupropion HCl (Bupropion Hcl Xl 300 Mg Tab.Er.24h) 300 mg PO DAILY [facility] Last Admin: 03/11/21 09:07 Dose: 300 mg Documented by: Calcium Carbonate (Calcium Carbonate 500 Mg Tablet) 500 mg PO DAILY [facility] Last Admin: 03/11/21 09:07 Dose: 500 mg Documented by: Clonazepam (Clonazepam 0.5 Mg Tablet) 0.5 mg PO DAILY PRN PRN Reason: Anxiety Enoxaparin Sodium (Enoxaparin Sodium 40 Mg/0.4 Ml Syringe) 40 mg SUBCUT Q24H [facility] Last Admin: 03/10/21 20:05 Dose: 40 mg Documented by: Ferrous Sulfate (Ferrous Sulfate 324 Mg Tablet.) 324 mg PO DAILY [facility] Last Admin: 03/11/21 09:07 Dose: 324 mg Documented by: Fluoxetine HCl (Fluoxetine Hcl 20 Mg Capsule) 40 mg PO DAILY [facility] Last Admin: 03/11/21 09:07 Dose: 40 mg Documented by: Lactated Ringer's (Lr) 1,000 mls @ 100 mls/hr IVCONT .Q10H [facility] Last Admin: 03/11/21 04:52 Dose: 100 mls/hr Documented by: Multivitamins/Vitamin C (Multivitamin Tablet) 1 tab PO DAILY [facility] Last Admin: 03/11/21 09:07 Dose: 1 tab Documented by: Omeprazole (Omeprazole 20 Mg Capsule.) 20 mg PO BID@0630,1630 [facility] Last Admin: 03/10/21 06:01 Dose: 20 mg Documented by: Ondansetron HCl (Ondansetron Hcl 4 Mg/2 Ml Vial) 4 mg IVPUSH Q8H [facility] Last Admin: 03/11/21 04:52 Dose: 4 mg Documented by: Pantoprazole Sodium (Pantoprazole Sodium 40 Mg/10 Ml Vial) 40 mg IVPUSH BID [facility] Last Admin: 03/11/21 09:07 Dose: 40 mg Documented by: Pharmacy Consult (Consult Rx Perform Med Rec) 1 each MISCELLANE ONCE PRN PRN Reason: Consult order Prazosin HCl (Prazosin Hcl 1 Mg Capsule) 2 mg PO BEDTIME [facility]; Protocol Last Admin: 03/10/21 20:02 Dose: 2 mg Documented by: Sodium Chloride (0.9 % Sodium Chloride Flush 3 Ml Syringe) 3 ml IVFLUSH QSHIFT [facility] Last Admin: 03/11/21 09:06 Dose: 3 ml Documented by: Vitamin D (Cholecalciferol (Vitamin D3) 25 Mcg Tablet) 125 mcg PO DAILY [facility] Last Admin: 03/11/21 09:06 Dose: 125 mcg Documented by: Ziprasidone (Ziprasidone 20 Mg Capsule) 20 mg PO BEDTIME [facility] Last Admin: 03/10/21 20:05 Dose: 20 mg Documented by: Home Medications Medication Instructions Recorded Confirmed Last Taken Type bupropion HCl 150 mg 24 hr tablet, 300 mg PO QAM 03/05/20 03/09/21 03/09/21 History extended release cholecalciferol (vitamin D3) 125 125 mcg PO DAILY 06/08/20 03/09/21 03/09/21 History mcg (5,000 unit) tablet (Vitamin D3) clonazepam 0.5 mg tablet 0.5 mg PO DAILY PRN 06/08/20 03/09/21 03/09/21 History fluoxetine 20 mg capsule (Prozac) 40 mg PO DAILY 06/08/20 03/09/21 03/09/21 History dmiwninacmyf-dopmlyez-bomzza tablet 1 tab PO DAILY 06/08/20 03/09/21 03/09/21 History calcium carbonate 500 mg calcium 500 mg PO DAILY 08/11/20 03/09/21 03/09/21 History (1,250 mg) chewable tablet (Calcium 500) prazosin 1 mg capsule 2 mg PO BEDTIME cap 12/22/20 03/09/21 03/08/21 History ondansetron HCl 4 mg tablet 1 tab PO BID-TID PRN 03/09/21 03/09/21 03/09/21 History Exam Exam Date and Time: March 11, 2021 1233 Height,Weight and Vital Signs: Height 5 ft 2 in Weight 71.2 kg Last Vital Signs Temp 97.4 F 03/11/21 12:00 Pulse 67 11/19/21 12:00 Resp 18 03/11/21 12:00 BP 166/80 H 03/11/21 12:00 Pulse Ox 95 03/11/21 12:00 Pertinent Lab Results Pertinent Lab Results: Laboratory Tests 03/09/21 03/09/21 03/09/21 17:05 17:05 17:05 WBC 6.8 RBC 3.84 L Hgb 11.0 L Hct 33.1 L MCV 86.2 MCH 28.6 MCHC 33.2 RDW 13.3 Plt Count 322 MPV 9.6 Immature Gran % (Auto) 0.1 Neut % (Auto) 58.6 Lymph % (Auto) 30.1 [place] % (Auto) 8.6 Eos % (Auto) 2.2 Baso % (Auto) 0.4 Lymph # (Auto) 2.0 [place] # (Auto) 0.6 Eos # (Auto) 0.2 Baso # (Auto) 0.0 Abs Immat Gran (auto) 0.01 Absolute Neuts (auto) 4.0 Absolute Nucleated RBC 0.000 Nucleated RBC % (auto) 0.0 Sodium Potassium Chloride Carbon Dioxide Anion Gap BUN Creatinine Estim Creat Clear Calc Estimated GFR Random Glucose Calcium Magnesium Total Bilirubin Direct Bilirubin AST ALT Alkaline Phosphatase Total Protein Albumin Lipase Urine Color YELLOW Urine Appearance CLEAR Urine pH 6.0 Ur Specific [place] 1.010 Urine Protein NEG Urine Glucose (UA) NEG Urine Ketones NEG Urine Blood NEG Urine Nitrite NEG Ur Leukocyte Esterase NEG Urine Opiates Screen Urine Fentanyl Screen Ur Barbiturates Screen Ur Phencyclidine Scrn Ur Amphetamines Screen U Benzodiazepines Scrn Urine Cocaine Screen U Marijuana (THC) Screen COVID-19 (YIN) Negative COVID-19 Clin Com See Note 03/09/21 03/09/21 03/10/21 17:05 17:27 06:19 WBC RBC Hgb Hct MCV MCH MCHC RDW Plt Count MPV Immature Gran % (Auto) Neut % (Auto) Lymph % (Auto) [place] % (Auto) Eos % (Auto) Baso % (Auto) Lymph # (Auto) [place] # (Auto) Eos # (Auto) Baso # (Auto) Abs Immat Gran (auto) Absolute Neuts (auto) Absolute Nucleated RBC Nucleated RBC % (auto) Sodium 137 140 Potassium 4.3 3.9 Chloride 104 106 Carbon Dioxide 26 28 Anion Gap 11 L 10 L BUN 13 10 Creatinine 0.89 0.91 Estim Creat Clear Calc 65.2 63.8 Estimated GFR > 60 > 60 Random Glucose 93 83 Calcium 9.2 D 9.0 Magnesium 2.0 Total Bilirubin 0.2 Direct Bilirubin < 0.2 AST 25 ALT 22 Alkaline Phosphatase 63 Total Protein 6.0 L Albumin 4.0 Lipase 63 Urine Color Urine Appearance Urine pH Ur Specific [place] Urine Protein Urine Glucose (UA) Urine Ketones Urine Blood Urine Nitrite Ur Leukocyte Esterase Urine Opiates Screen Not Detected Urine Fentanyl Screen Not Detected Ur Barbiturates Screen Not Detected Ur Phencyclidine Scrn Not Detected Ur Amphetamines Screen Not Detected U Benzodiazepines Scrn Not Detected Urine Cocaine Screen Not Detected U Marijuana (THC) Screen Not Detected COVID-19 (YIN) COVID-19 Clin Com Airway Mallampati Class: III TM Dist: >3cm Neck ROM: Full Loose/Missing/Broken Teeth: Yes Heart: [id number] Lungs: cta b/l Assessment and Plan Assessment Anesthesia Assessment: Anesthesia Plan Discussed and Chart Reviewed Final Anesthetic Review Family History of Problems with Anesthesia: No History of Problems with Anesthesia: No NPO: Yes ASA Class: III Final Preanesthetic Review: No Changes in Pt Med Stat, Meds/Allgs Chart Reviewed, Consent Obtained/Reviewed and Anes Risks/Benef Reviewed Patient Risk: Intermediate Procedure Risk: Low Assessment/Block/Sedation in SS: Assess/Block/Sedation-SS Anesthetic Plan Anesthetic Plan: MAC: and Agree w/ Assess. and Plan Disposition: Standard PACU
--- NOTE | 2021-03-11 12:42 | P.BOP_ITS ---
Brief Operative Note Date of Service: 03/11/21 Pre-op diagnosis: dysphagia, nausea Post-op diagnosis: same Procedure: see op note Surgeon: Marco Antonio Royal MD Anesthesia: MAC Was an [employer] Operator used for this Procedure?: No Estimated blood loss (mL): 0 Condition: stable Disposition: PACU
--- NOTE | 2021-03-11 15:03 | HO.PM.IMPN ---
Subjective Subjective Date of Service: 03/11/21 Interval History: dysphagia Review of Systems Patient still vomited last night,, still has nausea going for EGD today. Physical Exam Vital Signs: Vital Signs: Last Vital Signs Temp 97.4 F 03/11/21 13:07 Pulse 68 03/11/21 13:07 Resp 16 03/11/21 13:07 BP 149/83 H 03/11/21 13:07 Pulse Ox 97 03/11/21 13:07 Body Mass Index 28.7 Appearance: Alert.? Oriented X3.? not in distress.? Eyes: Pupils equal, round and reactive to light.? Sclera nonicteric.? ENT: Pharynx normal.? Moist mucous membranes. cvs: rrr, [id number] , no murmur res: clear to auscultation ,no rhonchii or wheezing abd: no rebound or guarding ,nt, bs present. ext pulses present , no cyanosis ,Gait well balanced well coordinated. neuro: axo3 , nonfocal. Objective Data Active Medications Acetaminophen (Acetaminophen 325 Mg Tablet) 650 mg PO ONCE PRN PRN Reason: Pain, Mild (Pain Scale 1-3) Ascorbic Acid (Ascorbic Acid 500 Mg Tablet) 500 mg PO DAILY [facility] Atorvastatin Calcium (Atorvastatin Calcium 10 Mg Tablet) 10 mg PO BEDTIME [facility] Bupropion HCl (Bupropion Hcl Xl 300 Mg Tab.Er.24h) 300 mg PO DAILY [facility] Last Admin: 03/11/21 09:07 Dose: 300 mg Documented by: ELLEN Calcium Carbonate (Calcium Carbonate 500 Mg Tablet) 500 mg PO DAILY [facility] Last Admin: 03/11/21 09:07 Dose: 500 mg Documented by: ELLEN Clonazepam (Clonazepam 0.5 Mg Tablet) 0.5 mg PO DAILY PRN PRN Reason: Anxiety Enoxaparin Sodium (Enoxaparin Sodium 40 Mg/0.4 Ml Syringe) 40 mg SUBCUT Q24H [facility] Last Admin: 03/10/21 20:05 Dose: 40 mg Documented by: NATALIE Ferrous Sulfate (Ferrous Sulfate 324 Mg Tablet.) 324 mg PO DAILY [facility] Last Admin: 03/11/21 09:07 Dose: 324 mg Documented by: ELLEN Fluoxetine HCl (Fluoxetine Hcl 20 Mg Capsule) 40 mg PO DAILY [facility] Last Admin: 03/11/21 09:07 Dose: 40 mg Documented by: ELLEN Hydrochlorothiazide (Hydrochlorothiazide 25 Mg Tablet) 25 mg PO DAILY [facility] Lactated Ringer's (Lr) 1,000 mls @ 100 mls/hr IVCONT .Q10H [facility] Last Infusion: 03/11/21 12:47 Dose: 0 mls/hr Documented by: ELLEN Lisinopril (Lisinopril 20 Mg Tablet) 20 mg PO DAILY [facility] Multivitamins/Vitamin C (Multivitamin Tablet) 1 tab PO DAILY [facility] Last Admin: 03/11/21 09:07 Dose: 1 tab Documented by: ELLEN Naproxen (Naproxen 250 Mg Tablet) 250 mg PO BID [facility] Omeprazole (Omeprazole 20 Mg Capsule.Dr) 20 mg PO BID@0630,1630 [facility] Last Admin: 03/10/21 06:01 Dose: 20 mg Documented by: NATALIE Ondansetron HCl (Ondansetron Hcl 4 Mg/2 Ml Vial) 4 mg IVPUSH Q8H [facility] Last Admin: 03/11/21 13:50 Dose: Not Given Documented by: ELLEN Non-Admin Reason: Off Unit: Surgery Ondansetron HCl (Ondansetron Hcl 4 Mg/2 Ml Vial) 4 mg IVPUSH ONCE PRN PRN Reason: Nausea and Vomiting Ondansetron HCl (Ondansetron Odt 4 Mg Tab.Rapdis) 4 mg TRANSLINGU TID PRN PRN Reason: nausea/vomiting Pantoprazole Sodium (Pantoprazole Sodium 40 Mg/10 Ml Vial) 40 mg IVPUSH BID [facility] Last Admin: 03/11/21 09:07 Dose: 40 mg Documented by: ELLEN Pharmacy Consult (Consult Rx Perform Med Rec) 1 each MISCELLANE ONCE PRN PRN Reason: Consult order Prazosin HCl (Prazosin Hcl 1 Mg Capsule) 2 mg PO BEDTIME [facility]; Protocol Last Admin: 03/10/21 20:02 Dose: 2 mg Documented by: NATALIE Sodium Chloride (0.9 % Sodium Chloride Flush 3 Ml Syringe) 3 ml IVFLUSH QSHIFT [facility] Last Admin: 03/11/21 09:06 Dose: 3 ml Documented by: ELLEN Vitamin D (Cholecalciferol (Vitamin D3) 25 Mcg Tablet) 125 mcg PO DAILY [facility] Last Admin: 03/11/21 09:06 Dose: 125 mcg Documented by: DOBROB Ziprasidone (Ziprasidone 20 Mg Capsule) 20 mg PO BEDTIME [facility] Last Admin: 03/10/21 20:05 Dose: 20 mg Documented by: NAUMOC Labs CBC & Chem 7: 03/09/21 17:05 03/10/21 06:19 Assessment and Plan (1) Intractable vomiting: Status: Acute (2) Unintentional weight loss: Status: Acute Assessment and Plan: 55-year-old female with multiple comorbidities and abdominal surgery for weight loss in the [place] came with intractable nausea vomiting and weight loss as above. 1. Intractable nausea vomiting:? Differential diagnosis :? He at all hernia versus GERD versus esophageal motility disorders versus ulcer. Lab imaging personally reviewed and interpreted-patient had mild anemia hemoglobin of 11, normal renal function potassium 4.3. still Decreased p.o. intake, Has nausea or vomiting Will start patient on IV fluid, Zofran, ppi., clear liquid diet GI evaluation-for EGD today-hiatal hernia biopsies done, distal and proximal esophagus dilation. Gastric erythema.post surgical changes of sleeve noted, no stricture. Duodenum: Normal bulb and descending duodenum, bx taken Clear liquid diet, if patient does not tolerate may need sgastric emptying study 2. htn:? Blood pressure fluctuating, Hold lisinopril hydrochlorothiazide If blood pressure persistently above 140s we will add small dose amlodipine. 3. Hypercholesteremia:? Continue statin? 4. Mild normochromic anemia: Patient is on iron supplements, follows up with GI outpatient. 5. PTSD and anxiety depression: Continue bupropion, zasperidone DVT prophylaxis with Lovenox Quality Stroke Does the patient have a stroke diagnosis?: No VTE Prior VTE?: No VTE Risk Level:: Medical - moderate - high VTE Device Contraindication: N/A - Device Ordered VTE Drug Contraindication: N/A - Med Ordered
[2021-03-11] MEDS: Omeprazole 20 MG CAPSULE.DR PO (16:40)
[2021-03-11] MEDS: Prazosin HCL 1 MG CAPSULE 2 MG PO (19:43)
[2021-03-11] MEDS: NaPROXEN 250 MG TABLET PO (19:43)
[2021-03-11] MEDS: Enoxaparin Sodium 40 MG/0.4 ML SYRINGE SUBCUT (19:44)
[2021-03-11] MEDS: Ziprasidone 20 MG CAPSULE PO (19:44)
[2021-03-11] MEDS: Atorvastatin Calcium 10 MG TABLET PO (19:44)
[2021-03-12] VITALS (12 sets, daily range): BP systolic 100–178; BP diastolic 58–97; PULSE 62–89; RESP 18–25; TEMP 36.1–37.1; O2SAT 96–100
[2021-03-12] MEDS: Omeprazole 20 MG CAPSULE.DR PO ×2 (05:58→16:26)
[2021-03-12] MEDS: Lactated Ringers 1,000 ML 100 ML IVCONT ×2 (05:58→16:26)
[2021-03-12] MEDS: ondansetron HCL 4 MG/2 ML VIAL IVPUSH ×3 (05:58→20:55)
[2021-03-12] MEDS: Pantoprazole Sodium 40 MG/10 ML VIAL IVPUSH ×2 (10:42→20:55)
[2021-03-12] MEDS: FLUoxetine HCl 20 MG CAPSULE 40 MG PO (10:42)
[2021-03-12] MEDS: buPROPion HCl XL 300 MG TAB.ER.24H PO (10:42)
[2021-03-12] MEDS: amLODIPine Besylate 2.5 MG TABLET PO (10:43)
[2021-03-12] MEDS: Cholecalciferol (Vitamin D3) 25 MCG TABLET 125 MCG PO (10:43)
[2021-03-12] MEDS: NaPROXEN 250 MG TABLET PO ×2 (10:43→20:54)
[2021-03-12] MEDS: lisinopriL 20 MG TABLET PO (10:44)
[2021-03-12] MEDS: hydroCHLOROthiazide 25 MG TABLET PO (10:44)
[2021-03-12] MEDS: Multivitamin TABLET 1 TAB PO (10:44)
[2021-03-12] MEDS: 0.9 % Sodium Chloride Flush 3 ML SYRINGE IVFLUSH ×3 (10:44→20:55)
[2021-03-12] MEDS: Ascorbic Acid 500 MG TABLET PO (10:44)
[2021-03-12] MEDS: Ferrous Sulfate 324 MG TABLET.DR PO (10:44)
--- NOTE | 2021-03-12 11:01 | PM.DS ---
DS: Providers Provider Date of Service: 03/12/21 Date of admission: 03/09/21 19:00 Primary care physician: Demi Lr MD Consults: 03/09/21 18:57 Consult to Gastroenterology Routine Consulting Provider: Redd Urias Reason for consultation: Dysphagia Has provider been notified: No DS: Diagnosis Discharge Diagnosis (1) Intractable vomiting: Status: Acute (2) Unintentional weight loss: Status: Acute DS: Summary Hospital Course Hospital Course: 55 y/o female with history of morbid obesity-had history of lap pending and reversal and subsequently given , s/p laproscopic sleeve gastrectomy 2017, hiatial hernia, esophageal dysmotility, GERD: Patient came to the hospital because of having dysphagia with both solid and liquid, she says her says dysphagia is more with solid than liquid. She had unremarkable CT scan about 1 month ago.? She had an upper GI series done in July showing the esophageal dysmotility and hiatal hernia.? She reports over the last 2 days she has had increased vomiting episodes of both solids and liquids.? She states at times she feels like things are getting stuck in her throat and she vomits it right back up.? Other times it is just moments after she eats were everything comes back up.? She has not been able to keep anything down in the last 2 days.? She reports ongoing epigastric pain that is unchanged over the last month.? She is moving her bowels normally.? She has no fever or chills.? No chest pain or shortness of breath.? She reports an unintentional 40 lb weight loss since November. She followed by GI - seen by GI on 02/24 with plans to get an EGD and gastric emptying study. She reports unable to get tests done until May 20, 2021.? Hospital course: Patient came with intractable nausea vomiting-started on symptomatic therapy including IV Zofran, ppi-subsequently seen by GI patient has balloon dilation of esophagus-symptoms are improving, in addition GI have done EGD? - showed hiatal hernia? biopsies done, distal and proximal esophagus dilation.? Gastric erythema.post surgical changes of sleeve noted, no stricture.Duodenum: Normal bulb and descending duodenum, biopsies taken. Subsequently patient has started tolerating the diet well, discussed with the GI patient can go home today-if symptoms reoccur then patient will need gastric emptying study and even esophageal monometry studies if needed in future. Patient is to follow up with GI out patiently. Above management discussed with the patient in detail length she understand and in agreement with the above plan, time spent 50 minutes and 50% time spent on counseling. Significant findings: As above. Procedures performed: None. Treatment and response: As above. Complications: None. Time Spent with Patient Time attestation: Total time spent providing and/or coordinating discharge services: Physical Exam Vital Signs: Vital Signs: Last Vital Signs Temp 97.4 F 03/12/21 07:34 Pulse 62 03/12/21 10:44 Resp 18 03/12/21 07:34 BP 149/83 H 03/12/21 10:44 Pulse Ox 97 03/12/21 07:34 Body Mass Index 28.7 Physical exam: Appearance: Alert.? Oriented X3.? not in distress.? Eyes: Pupils equal, round and reactive to light.? Sclera nonicteric.? ENT: Pharynx normal.? Moist mucous membranes. cvs: rrr, [id number] , no murmur res: clear to auscultation ,no rhonchii or wheezing abd: no rebound or guarding ,nt, bs present. ext pulses present , no cyanosis . neuro: axo3 , nonfocal. DS: Data Data Completed and Pending Pending studies at discharge: Pending at discharge 03/11/21 12:50 Surgical [PTH] Routine Discharge Plan Discharge Patient Disposition: Home, Self-Care Discharge Diagnosis: Intractable nausea vomiting. Referrals: Marco Antonio Royal MD [Physician] - 1 Week (outpatiently) Po,Demi Rendon MD [Primary Care Provider] - 1 Week Discharge Medications: Continued ferrous sulfate 325 mg (65 mg iron) tablet 325 mg PO DAILY Qty: 30 RF: 3 ascorbic acid (vitamin C) [Vitamin C] 500 mg tablet 500 mg PO DAILY Qty: 30 RF: 3 meloxicam 7.5 mg tablet 7.5 mg PO DAILY Qty: 30 RF: 1 omeprazole 20 mg capsule,delayed release(DR/EC) 20 mg PO BID Qty: 180 RF: 1 lisinopril-hydrochlorothiazide 20-25 mg tablet 1 tab PO DAILY Qty: 90 RF: 1 simvastatin 10 mg tablet 10 mg PO BEDTIME Qty: 90 RF: 1 clonazepam 0.5 mg Tablet 0.5 mg PO DAILY PRN (Reason: Anxiety) RF: 0 fluoxetine [Prozac] 20 mg Capsule 40 mg PO DAILY RF: 0 Centrum Silver Tablet 1 tab PO DAILY RF: 0 cholecalciferol (vitamin D3) [Vitamin D3] 125 mcg (5,000 unit) Tablet 125 mcg PO DAILY RF: 0 ziprasidone HCl [Geodon] 20 mg capsule 20 mg PO BEDTIME 30 Days Qty: 15 RF: 1 ondansetron HCl 4 mg tablet 1 tab PO BID-TID PRN (Reason: nausea/vomiting) RF: 0 prazosin 1 mg capsule 2 mg PO BEDTIME RF: 0 bupropion HCl 150 mg tablet extended release 24 hr 300 mg PO QAM RF: 0 calcium carbonate [Calcium 500] 500 mg calcium (1,250 mg) tablet,chewable 500 mg PO DAILY RF: 0 Diet: advance to usual diet and low fat, low cholesterol Activity on Discharge: As tolerated Stand Alone Forms: Patient Portal Discharge page Care Plan Goals: Patient came with intractable nausea vomiting-started on symptomatic therapy including IV Zofran, ppi-subsequently seen by GI patient has balloon dilation of esophagus-symptoms are improving, in addition GI have done EGD? - showed hiatal hernia? biopsies done, distal and proximal esophagus dilation.? Gastric erythema.post surgical changes of sleeve noted, no stricture.Duodenum: Normal bulb and descending duodenum, biopsies taken. Subsequently patient has started tolerating the diet well, discussed with the GI patient can go home today-if symptoms reoccur then patient will need gastric emptying study and even esophageal monometry studies if needed in future. Patient is to follow up with GI out patiently. Health Concerns: As above. Plan of Treatment: As above. Assessment: As above.
--- NOTE | 2021-03-12 13:41 | P.PNIM_ITS ---
Subjective Subjective Date of Service: 03/12/21 Interval History: Intractable nausea vomiting Review of Systems Patient still did not tolerate diet vomited this morning. Denies any new complaint of chest pain or shortness of breath or abdominal pain or fever . Denies any cough Denies any weakness or numbness. Physical Exam Vital Signs: Vital Signs: Last Vital Signs Temp 98.0 F 03/12/21 11:30 Pulse 69 03/12/21 11:30 Resp 18 03/12/21 11:30 BP 153/89 H 03/12/21 11:30 Pulse Ox 97 03/12/21 12:34 Body Mass Index 28.7 Appearance: Alert.? Oriented X3.? not in distress.? cvs: rrr, [id number] , no murmur res: clear to auscultation ,no rhonchii or wheezing abd: no rebound or guarding ,nt, bs present. ext pulses present , no cyanosis ,Gait well balanced well coordinated. neuro: axo3 , nonfoca Objective Data Active Medications Acetaminophen (Acetaminophen 325 Mg Tablet) 650 mg PO ONCE PRN PRN Reason: Pain, Mild (Pain Scale 1-3) Amlodipine Besylate (Amlodipine Besylate 2.5 Mg Tablet) 2.5 mg PO DAILY [facility]; Protocol Last Admin: 03/12/21 10:43 Dose: 2.5 mg Documented by: STEVE Ascorbic Acid (Ascorbic Acid 500 Mg Tablet) 500 mg PO DAILY [facility] Last Admin: 03/12/21 10:44 Dose: 500 mg Documented by: STEVE Atorvastatin Calcium (Atorvastatin Calcium 10 Mg Tablet) 10 mg PO BEDTIME [facility] Last Admin: 03/11/21 19:44 Dose: 10 mg Documented by: ANTLAWRENCE Bupropion HCl (Bupropion Hcl Xl 300 Mg Tab.Er.24h) 300 mg PO DAILY [facility] Last Admin: 03/12/21 10:42 Dose: 300 mg Documented by: STEVE Calcium Carbonate (Calcium Carbonate 500 Mg Tablet) 500 mg PO DAILY [facility] Last Admin: 03/12/21 10:43 Dose: 500 mg Documented by: STEVE Clonazepam (Clonazepam 0.5 Mg Tablet) 0.5 mg PO DAILY PRN PRN Reason: Anxiety Enoxaparin Sodium (Enoxaparin Sodium 40 Mg/0.4 Ml Syringe) 40 mg SUBCUT Q24H [facility] Last Admin: 03/11/21 19:44 Dose: 40 mg Documented by: SERA Ferrous Sulfate (Ferrous Sulfate 324 Mg Tablet.) 324 mg PO DAILY [facility] Last Admin: 03/12/21 10:44 Dose: 324 mg Documented by: STEVE Fluoxetine HCl (Fluoxetine Hcl 20 Mg Capsule) 40 mg PO DAILY [facility] Last Admin: 03/12/21 10:42 Dose: 40 mg Documented by: STEVE Hydrochlorothiazide (Hydrochlorothiazide 25 Mg Tablet) 25 mg PO DAILY [facility] Last Admin: 03/12/21 10:44 Dose: 25 mg Documented by: STEVE Lactated Ringer's (Lr) 1,000 mls @ 100 mls/hr IVCONT .Q10H [facility] Last Admin: 03/12/21 05:58 Dose: 100 mls/hr Documented by: SERA Lisinopril (Lisinopril 20 Mg Tablet) 20 mg PO DAILY [facility] Last Admin: 03/12/21 10:44 Dose: 20 mg Documented by: STEVE Multivitamins/Vitamin C (Multivitamin Tablet) 1 tab PO DAILY [facility] Last Admin: 03/12/21 10:44 Dose: 1 tab Documented by: STEVE Naproxen (Naproxen 250 Mg Tablet) 250 mg PO BID [facility] Last Admin: 03/12/21 10:43 Dose: 250 mg Documented by: STEVE Omeprazole (Omeprazole 20 Mg Capsule.) 20 mg PO BID@0630,1630 [facility] Last Admin: 03/12/21 05:58 Dose: 20 mg Documented by: SERA Ondansetron HCl (Ondansetron Hcl 4 Mg/2 Ml Vial) 4 mg IVPUSH Q8H [facility] Last Admin: 03/12/21 10:42 Dose: 4 mg Documented by: STEVE Ondansetron HCl (Ondansetron Hcl 4 Mg/2 Ml Vial) 4 mg IVPUSH ONCE PRN PRN Reason: Nausea and Vomiting Ondansetron HCl (Ondansetron Odt 4 Mg Tab.Rapdis) 4 mg TRANSLINGU TID PRN PRN Reason: nausea/vomiting Pantoprazole Sodium (Pantoprazole Sodium 40 Mg/10 Ml Vial) 40 mg IVPUSH BID [facility] Last Admin: 03/12/21 10:42 Dose: 40 mg Documented by: STEVE Pharmacy Consult (Consult Rx Perform Med Rec) 1 each MISCELLANE ONCE PRN PRN Reason: Consult order Prazosin HCl (Prazosin Hcl 1 Mg Capsule) 2 mg PO BEDTIME [facility]; Protocol Last Admin: 03/11/21 19:43 Dose: 2 mg Documented by: SERA Sodium Chloride (0.9 % Sodium Chloride Flush 3 Ml Syringe) 3 ml IVFLUSH QSHIFT [facility] Last Admin: 03/12/21 10:44 Dose: 3 ml Documented by: STEVE Vitamin D (Cholecalciferol (Vitamin D3) 25 Mcg Tablet) 125 mcg PO DAILY [facility] Last Admin: 03/12/21 10:43 Dose: 125 mcg Documented by: STEVE Ziprasidone (Ziprasidone 20 Mg Capsule) 20 mg PO BEDTIME [facility] Last Admin: 03/11/21 19:44 Dose: 20 mg Documented by: SERA Labs CBC & Chem 7: 03/09/21 17:05 03/10/21 06:19 Assessment and Plan (1) Intractable vomiting: Status: Acute (2) Nausea and vomiting: Status: Acute Assessment and Plan: 55-year-old female with multiple comorbidities and abdominal surgery [place] came with intractable nausea vomiting and weight loss as above. 1. Intractable nausea vomiting:? Differential diagnosis :? He at all hernia versus GERD versus esophageal motility disorders versus ulcer. Lab imaging personally reviewed and interpreted-patient had mild anemia hemoglobin of 11, normal renal function potassium 4.3. still Decreased p.o. intake,? Has nausea or vomiting when given regular diet GI evaluation-for EGD? today-hiatal hernia? biopsies done, distal and proximal esophagus dilation.? Gastric erythema.post surgical changes of sleeve noted, no stricture. Duodenum: Normal bulb and descending duodenum, bx taken. Continue on IV fluid, Zofran, ppi, will keep full liquid diet for now since she did not tolerate regular, if patient does not improve may need sgastric emptying study Discussed with GI. 2. htn:? Blood pressure fluctuating, Hold lisinopril hydrochlorothiazide If blood pressure persistently above 140s we will add small dose amlodipine. 3. Hypercholesteremia:? Continue statin? 4. Mild normochromic anemia: Patient is on iron supplements, follows up with GI outpatient. 5. PTSD and anxiety depression: Continue bupropion, zasperidone DVT prophylaxis with Lovenox Quality Stroke Does the patient have a stroke diagnosis?: No VTE Prior VTE?: No VTE Risk Level:: Medical - moderate - high VTE Device Contraindication: N/A - Device Ordered VTE Drug Contraindication: N/A - Med Ordered
--- NOTE | 2021-03-12 14:43 | HO.POSTANES ---
Post Anesthesia Evaluation Post Anesthesia Evaluation Vital Signs: Vital Signs Temp Pulse Resp BP Pulse Ox 03/12/21 12:34 97 03/12/21 11:30 98.0 F 69 18 153/89 H 98 03/12/21 10:44 62 149/83 H 03/12/21 10:43 62 149/83 H 03/12/21 07:34 97.4 F 62 18 149/83 H 97 03/12/21 04:00 98.6 F 67 20 159/78 H 98 Anesthesia: Monitored Mental Status: Awake Pain Control: Satisfactory Nausea/Vomiting: None Hydration: Adequate Anesthesia-Related Issues: No Anes. Related Issues
[2021-03-12] MEDS: clonazePAM 0.5 MG TABLET PO (16:26)
[2021-03-12] MEDS: Enoxaparin Sodium 40 MG/0.4 ML SYRINGE SUBCUT (20:55)
[2021-03-12] MEDS: Prazosin HCL 1 MG CAPSULE 2 MG PO (20:55)
[2021-03-12] MEDS: Atorvastatin Calcium 10 MG TABLET PO (20:55)
[2021-03-12] MEDS: Ziprasidone 20 MG CAPSULE PO (20:55)
[2021-03-13] VITALS (9 sets, daily range): BP systolic 100–156; BP diastolic 62–90; PULSE 64–95; RESP 18–20; TEMP 36.1–37.5; O2SAT 96–99
[2021-03-13] MEDS: Omeprazole 20 MG CAPSULE.DR PO ×2 (04:47→16:37)
[2021-03-13] MEDS: ondansetron HCL 4 MG/2 ML VIAL IVPUSH ×3 (04:47→21:07)
[2021-03-13] MEDS: Lactated Ringers 1,000 ML 100 ML IVCONT ×2 (05:29→15:01)
[2021-03-13] MEDS: lisinopriL 20 MG TABLET PO (09:29)
[2021-03-13] MEDS: Multivitamin TABLET 1 TAB PO (09:29)
[2021-03-13] MEDS: NaPROXEN 250 MG TABLET PO ×2 (09:30→21:06)
[2021-03-13] MEDS: Cholecalciferol (Vitamin D3) 25 MCG TABLET 125 MCG PO (09:30)
[2021-03-13] MEDS: Ferrous Sulfate 324 MG TABLET.DR PO (09:31)
[2021-03-13] MEDS: hydroCHLOROthiazide 25 MG TABLET PO (09:31)
[2021-03-13] MEDS: buPROPion HCl XL 300 MG TAB.ER.24H PO (09:32)
[2021-03-13] MEDS: Ascorbic Acid 500 MG TABLET PO (09:32)
[2021-03-13] MEDS: amLODIPine Besylate 2.5 MG TABLET PO (09:32)
[2021-03-13] MEDS: FLUoxetine HCl 20 MG CAPSULE 40 MG PO (09:33)
--- NOTE | 2021-03-13 11:45 | HO.PM.IMPN ---
Subjective Subjective Date of Service: 03/13/21 Interval History: still haveing nausea/vomiting Review of Systems last evening had anxiety attack after hearing stressful news from the family. Responded well to anxiety medication. Patient still has nausea vomiting Denies any abdominal pain Physical Exam Vital Signs: Vital Signs: Last Vital Signs Temp 98.8 F 03/13/21 08:00 Pulse 95 03/13/21 09:32 Resp 18 03/13/21 08:00 BP 144/90 H 03/13/21 09:32 Pulse Ox 99 03/13/21 08:00 Body Mass Index 28.7 ?Appearance: Alert.? Oriented X3.? not in distress.? Eyes: Pupils equal, round and reactive to light.? Sclera nonicteric.? ENT: Pharynx normal.? Moist mucous membranes. cvs: rrr, [id number] , no murmur res: clear to auscultation ,no rhonchii or wheezing abd: no rebound or guarding ,nt, bs present. ext pulses present , no cyanosis ,Gait well balanced well coordinated. neuro: axo3 , nonfocal Objective Data Active Medications Acetaminophen (Acetaminophen 325 Mg Tablet) 650 mg PO ONCE PRN PRN Reason: Pain, Mild (Pain Scale 1-3) Amlodipine Besylate (Amlodipine Besylate 2.5 Mg Tablet) 2.5 mg PO DAILY [facility]; Protocol Last Admin: 03/13/21 09:32 Dose: 2.5 mg Documented by: EFE Ascorbic Acid (Ascorbic Acid 500 Mg Tablet) 500 mg PO DAILY [facility] Last Admin: 03/13/21 09:32 Dose: 500 mg Documented by: EFE Atorvastatin Calcium (Atorvastatin Calcium 10 Mg Tablet) 10 mg PO BEDTIME [facility] Last Admin: 03/12/21 20:55 Dose: 10 mg Documented by: ANTOIC Bupropion HCl (Bupropion Hcl Xl 300 Mg Tab.Er.24h) 300 mg PO DAILY [facility] Last Admin: 03/13/21 09:32 Dose: 300 mg Documented by: EFE Calcium Carbonate (Calcium Carbonate 500 Mg Tablet) 500 mg PO DAILY [facility] Last Admin: 03/13/21 09:32 Dose: 500 mg Documented by: EFE Clonazepam (Clonazepam 0.5 Mg Tablet) 0.5 mg PO DAILY PRN PRN Reason: Anxiety Last Admin: 03/12/21 16:26 Dose: 0.5 mg Documented by: STEVE Enoxaparin Sodium (Enoxaparin Sodium 40 Mg/0.4 Ml Syringe) 40 mg SUBCUT Q24H [facility] Last Admin: 03/12/21 20:55 Dose: 40 mg Documented by: SERA Ferrous Sulfate (Ferrous Sulfate 324 Mg Tablet.) 324 mg PO DAILY [facility] Last Admin: 03/13/21 09:31 Dose: 324 mg Documented by: EFE Fluoxetine HCl (Fluoxetine Hcl 20 Mg Capsule) 40 mg PO DAILY [facility] Last Admin: 03/13/21 09:33 Dose: 40 mg Documented by: EFE Hydrochlorothiazide (Hydrochlorothiazide 25 Mg Tablet) 25 mg PO DAILY [facility] Last Admin: 03/13/21 09:31 Dose: 25 mg Documented by: EFE Lactated Ringer's (Lr) 1,000 mls @ 100 mls/hr IVCONT .Q10H [facility] Last Admin: 03/13/21 05:29 Dose: 100 mls/hr Documented by: SERA Promethazine HCl 6.25 mg/ (Sodium Chloride) 50.25 mls @ 201 mls/hr IV Q6H PRN PRN Reason: Nausea Lisinopril (Lisinopril 20 Mg Tablet) 20 mg PO DAILY [facility] Last Admin: 03/13/21 09:29 Dose: 20 mg Documented by: EFE Multivitamins/Vitamin C (Multivitamin Tablet) 1 tab PO DAILY [facility] Last Admin: 03/13/21 09:29 Dose: 1 tab Documented by: EFE Naproxen (Naproxen 250 Mg Tablet) 250 mg PO BID [facility] Last Admin: 03/13/21 09:30 Dose: 250 mg Documented by: EFE Omeprazole (Omeprazole 20 Mg Capsule.) 20 mg PO BID@0630,1630 [facility] Last Admin: 03/13/21 04:47 Dose: 20 mg Documented by: SERA Ondansetron HCl (Ondansetron Hcl 4 Mg/2 Ml Vial) 4 mg IVPUSH Q8H [facility] Last Admin: 03/13/21 04:47 Dose: 4 mg Documented by: ANTLAWRENCE Ondansetron HCl (Ondansetron Hcl 4 Mg/2 Ml Vial) 4 mg IVPUSH ONCE PRN PRN Reason: Nausea and Vomiting Ondansetron HCl (Ondansetron Odt 4 Mg Tab.Rapdis) 4 mg TRANSLINGU TID PRN PRN Reason: nausea/vomiting Pharmacy Consult (Consult Rx Perform Med Rec) 1 each MISCELLANE ONCE PRN PRN Reason: Consult order Prazosin HCl (Prazosin Hcl 1 Mg Capsule) 2 mg PO BEDTIME [facility]; Protocol Last Admin: 03/12/21 20:55 Dose: 2 mg Documented by: SERA Sodium Chloride (0.9 % Sodium Chloride Flush 3 Ml Syringe) 3 ml IVFLUSH QSHIFT [facility] Last Admin: 03/13/21 09:25 Dose: Not Given Documented by: EFE Non-Admin Reason: IV Running Vitamin D (Cholecalciferol (Vitamin D3) 25 Mcg Tablet) 125 mcg PO DAILY [facility] Last Admin: 03/13/21 09:30 Dose: 125 mcg Documented by: EFE Ziprasidone (Ziprasidone 20 Mg Capsule) 20 mg PO BEDTIME [facility] Last Admin: 03/12/21 20:55 Dose: 20 mg Documented by: SERA Labs CBC & Chem 7: 03/09/21 17:05 03/10/21 06:19 Assessment and Plan (1) Intractable vomiting: Status: Acute Assessment and Plan: 55-year-old female with multiple comorbidities and abdominal [place] came with intractable nausea vomiting and weight loss as above. 1. Intractable nausea vomiting:? Differential diagnosis :? He at all hernia versus GERD versus esophageal motility disorders versus ulcer. Lab imaging personally reviewed and interpreted-patient had mild anemia hemoglobin of 11, normal renal function potassium 4.3. still Decreased p.o. intake,? Has nausea or vomiting when given regular diet GI evaluation-for EGD? today-hiatal hernia? biopsies done, distal and proximal esophagus dilation.? Gastric erythema.post surgical changes of sleeve noted, no stricture. Duodenum: Normal bulb and descending duodenum, bx taken. still having persistent nausea /vomiting Continue on IV fluid, Zofran, ppi , added phenergan, placed on clears, added gentle hydration if patient does not improve may need sgastric emptying study Discussed with GI-gi follow up in am 2. htn:? Blood pressure fluctuating, Hold lisinopril hydrochlorothiazide If blood pressure persistently above 140s we will add small dose amlodipine. 3. Hypercholesteremia:? Continue statin? 4. Mild normochromic anemia: Patient is on iron supplements, follows up with GI outpatient. 5. PTSD and anxiety depression: Continue bupropion, zasperidone DVT prophylaxis with Lovenox Quality Stroke Does the patient have a stroke diagnosis?: No VTE Prior VTE?: No VTE Risk Level:: Medical - moderate - high VTE Device Contraindication: N/A - Device Ordered VTE Drug Contraindication: N/A - Med Ordered
[2021-03-13] MEDS: Ziprasidone 20 MG CAPSULE PO (21:06)
[2021-03-13] MEDS: 0.9 % Sodium Chloride Flush 3 ML SYRINGE IVFLUSH (21:07)
[2021-03-13] MEDS: Enoxaparin Sodium 40 MG/0.4 ML SYRINGE SUBCUT (21:07)
[2021-03-13] MEDS: Prazosin HCL 1 MG CAPSULE 2 MG PO (21:07)
[2021-03-13] MEDS: Atorvastatin Calcium 10 MG TABLET PO (21:07)
[2021-03-14] VITALS (9 sets, daily range): BP systolic 108–144; BP diastolic 70–91; PULSE 60–73; RESP 18; TEMP 36.1–37.2; O2SAT 95–97
--- NOTE | 2021-03-14 | ECG_ITS ---
Test Reason : qtc prolongation Blood Pressure : / mmHG Vent. Rate : 066 BPM Atrial Rate : 066 BPM P-R Int : 132 ms QRS Dur : 078 ms QT Int : 414 ms P-R-T Axes : 039 -10 047 degrees QTc Int : 434 ms Normal sinus rhythm Nonspecific T wave abnormality Abnormal ECG No significant changes seen Referred By: Susan Dickinson Electronically Signed By:LYDIA CORCORAN MD
[2021-03-14] MEDS: Lactated Ringers 1,000 ML 100 ML IVCONT ×3 (01:14→15:08)
[2021-03-14] MEDS: ondansetron HCL 4 MG/2 ML VIAL IVPUSH ×3 (05:33→21:40)
[2021-03-14] MEDS: Omeprazole 20 MG CAPSULE.DR PO ×2 (05:33→15:08)
[2021-03-14] MEDS: Multivitamin TABLET 1 TAB PO (09:00)
[2021-03-14] MEDS: lisinopriL 20 MG TABLET PO (09:00)
[2021-03-14] MEDS: Ascorbic Acid 500 MG TABLET PO (09:00)
[2021-03-14] MEDS: Cholecalciferol (Vitamin D3) 25 MCG TABLET 125 MCG PO (09:00)
[2021-03-14] MEDS: Ferrous Sulfate 324 MG TABLET.DR PO (09:00)
[2021-03-14] MEDS: FLUoxetine HCl 20 MG CAPSULE 40 MG PO (09:00)
[2021-03-14] MEDS: buPROPion HCl XL 300 MG TAB.ER.24H PO (09:00)
[2021-03-14] MEDS: amLODIPine Besylate 2.5 MG TABLET PO (09:00)
[2021-03-14] MEDS: NaPROXEN 250 MG TABLET PO (09:00)
[2021-03-14] MEDS: hydroCHLOROthiazide 25 MG TABLET PO (09:00)
[2021-03-14] MEDS: 0.9 % Sodium Chloride Flush 3 ML SYRINGE IVFLUSH ×2 (09:01→16:50)
--- NOTE | 2021-03-14 10:58 | HO.PM.IMPN ---
Subjective Subjective Date of Service: 03/14/21 Interval History: Persistent nausea vomiting even after each EGD guided is a esophagealdilation. Review of Systems Patient still has nausea vomiting Denies any abdominal pain or fever or chills or cough or phlegm. Physical Exam Vital Signs: Vital Signs: Last Vital Signs Temp 97.6 F 03/14/21 07:28 Pulse 73 03/14/21 09:00 Resp 18 03/14/21 07:28 BP 144/91 H 03/14/21 09:00 Pulse Ox 95 03/14/21 07:28 Body Mass Index 28.7 Appearance: Alert.? Oriented X3.? not in distress.? Eyes: Pupils equal, round and reactive to light.? Sclera nonicteric.? ENT: Pharynx normal.? Moist mucous membranes. cvs: rrr, [id number] , no murmur res: clear to auscultation ,no rhonchii or wheezing abd: no rebound or guarding ,nt, bs present. ext pulses present , no cyanosis ,Gait well balanced well coordinated. neuro: axo3 , nonfocal Objective Data Active Medications Acetaminophen (Acetaminophen 325 Mg Tablet) 650 mg PO ONCE PRN PRN Reason: Pain, Mild (Pain Scale 1-3) Amlodipine Besylate (Amlodipine Besylate 2.5 Mg Tablet) 2.5 mg PO DAILY [facility]; Protocol Last Admin: 03/14/21 09:00 Dose: 2.5 mg Documented by: COOPER Ascorbic Acid (Ascorbic Acid 500 Mg Tablet) 500 mg PO DAILY [facility] Last Admin: 03/14/21 09:00 Dose: 500 mg Documented by: COOPER Atorvastatin Calcium (Atorvastatin Calcium 10 Mg Tablet) 10 mg PO BEDTIME [facility] Last Admin: 03/13/21 21:07 Dose: 10 mg Documented by: ANTOIC Bupropion HCl (Bupropion Hcl Xl 300 Mg Tab.Er.24h) 300 mg PO DAILY [facility] Last Admin: 03/14/21 09:00 Dose: 300 mg Documented by: COOPER Calcium Carbonate (Calcium Carbonate 500 Mg Tablet) 500 mg PO DAILY [facility] Last Admin: 03/14/21 09:00 Dose: 500 mg Documented by: COOPER Clonazepam (Clonazepam 0.5 Mg Tablet) 0.5 mg PO DAILY PRN PRN Reason: Anxiety Last Admin: 03/12/21 16:26 Dose: 0.5 mg Documented by: STEVE Enoxaparin Sodium (Enoxaparin Sodium 40 Mg/0.4 Ml Syringe) 40 mg SUBCUT Q24H [facility] Last Admin: 03/13/21 21:07 Dose: 40 mg Documented by: SERA Ferrous Sulfate (Ferrous Sulfate 324 Mg Tablet.) 324 mg PO DAILY [facility] Last Admin: 03/14/21 09:00 Dose: 324 mg Documented by: COOPER Fluoxetine HCl (Fluoxetine Hcl 20 Mg Capsule) 40 mg PO DAILY [facility] Last Admin: 03/14/21 09:00 Dose: 40 mg Documented by: COOPER Hydrochlorothiazide (Hydrochlorothiazide 25 Mg Tablet) 25 mg PO DAILY [facility] Last Admin: 03/14/21 09:00 Dose: 25 mg Documented by: COOPER Lactated Ringer's (Lr) 1,000 mls @ 100 mls/hr IVCONT .Q10H [facility] Last Admin: 03/14/21 08:56 Dose: 100 mls/hr Documented by: COOPER Promethazine HCl 6.25 mg/ (Sodium Chloride) 50.25 mls @ 201 mls/hr IV Q6H PRN PRN Reason: Nausea Last Infusion: 03/14/21 10:15 Dose: 0 mls/hr Documented by: COOPER Lisinopril (Lisinopril 20 Mg Tablet) 20 mg PO DAILY [facility] Last Admin: 03/14/21 09:00 Dose: 20 mg Documented by: COOPER Multivitamins/Vitamin C (Multivitamin Tablet) 1 tab PO DAILY [facility] Last Admin: 03/14/21 09:00 Dose: 1 tab Documented by: COOPER Naproxen (Naproxen 250 Mg Tablet) 250 mg PO BID [facility] Last Admin: 03/14/21 09:00 Dose: 250 mg Documented by: COOPER Omeprazole (Omeprazole 20 Mg Capsule.) 20 mg PO BID@0630,1630 [facility] Last Admin: 03/14/21 05:33 Dose: 20 mg Documented by: SERA Ondansetron HCl (Ondansetron Hcl 4 Mg/2 Ml Vial) 4 mg IVPUSH Q8H [facility] Last Admin: 03/14/21 05:33 Dose: 4 mg Documented by: SERA Ondansetron HCl (Ondansetron Hcl 4 Mg/2 Ml Vial) 4 mg IVPUSH ONCE PRN PRN Reason: Nausea and Vomiting Ondansetron HCl (Ondansetron Odt 4 Mg Tab.Rapdis) 4 mg TRANSLINGU TID PRN PRN Reason: nausea/vomiting Pharmacy Consult (Consult Rx Perform Med Rec) 1 each MISCELLANE ONCE PRN PRN Reason: Consult order Prazosin HCl (Prazosin Hcl 1 Mg Capsule) 2 mg PO BEDTIME [facility]; Protocol Last Admin: 03/13/21 21:07 Dose: 2 mg Documented by: SERA Sodium Chloride (0.9 % Sodium Chloride Flush 3 Ml Syringe) 3 ml IVFLUSH QSHIFT [facility] Last Admin: 03/14/21 09:01 Dose: 3 ml Documented by: COOPER Vitamin D (Cholecalciferol (Vitamin D3) 25 Mcg Tablet) 125 mcg PO DAILY [facility] Last Admin: 03/14/21 09:00 Dose: 125 mcg Documented by: COOPER Ziprasidone (Ziprasidone 20 Mg Capsule) 20 mg PO BEDTIME [facility] Last Admin: 03/13/21 21:06 Dose: 20 mg Documented by: SERA Labs CBC & Chem 7: 03/09/21 17:05 03/10/21 06:19 Assessment and Plan (1) Intractable vomiting: Status: Acute Assessment and Plan: 55-year-old female with multiple comorbidities and abdominal [place] came with intractable nausea vomiting and weight loss as above. 1. Intractable nausea vomiting:? Differential diagnosis :? He at all hernia versus GERD versus esophageal motility disorders versus ulcer. Lab imaging personally reviewed and interpreted-patient had mild anemia hemoglobin of 11, normal renal function potassium 4.3. still Decreased p.o. intake,? Has nausea or vomiting when given regular diet GI evaluation-for EGD? today-hiatal hernia? biopsies done, distal and proximal esophagus dilation.? Gastric erythema.post surgical changes of sleeve noted, no stricture. Duodenum: Normal bulb and descending duodenum, bx taken. still having persistent nausea /vomiting Continue on IV fluid, Zofran, ppi , added phenergan, placed on clears, added gentle hydration ?added sgastric emptying study Gi fu 2. htn:? Blood pressure fluctuating, Hold lisinopril hydrochlorothiazide If blood pressure persistently above 140s we will add small dose amlodipine. 3. Hypercholesteremia:? Continue statin? 4. Mild normochromic anemia: Patient is on iron supplements, follows up with GI outpatient. 5. PTSD and anxiety depression: Continue bupropion, zasperidone DVT prophylaxis with Lovenox Quality Stroke Does the patient have a stroke diagnosis?: No VTE Prior VTE?: No VTE Risk Level:: Medical - moderate - high VTE Device Contraindication: N/A - Device Ordered VTE Drug Contraindication: N/A - Med Ordered
[2021-03-14 14:55] LABS: Anion Gap 10 (12-20); Blood Urea Nitrogen 4 mg/dL (9-16); Calcium 9.4 mg/dL (8.4-10.2); Carbon Dioxide 31 mmol/L (22-29); Chloride 105 mmol/L (96-108); Creatinine Clr Calc Pharmacy 56.4; Estimated Glomerular Filt Rate 55; Glucose Random 70 mg/dL (60-115); Potassium 4.3 mmol/L (3.3-5.1); Sodium 142 mmol/L (135-145)
[2021-03-14] MEDS: Enoxaparin Sodium 40 MG/0.4 ML SYRINGE SUBCUT (21:40)
[2021-03-14] MEDS: Prazosin HCL 1 MG CAPSULE 2 MG PO (21:41)
[2021-03-14] MEDS: Ziprasidone 20 MG CAPSULE PO (21:41)
[2021-03-14] MEDS: Atorvastatin Calcium 10 MG TABLET PO (21:46)
[2021-03-15] VITALS (9 sets, daily range): BP systolic 115–170; BP diastolic 71–99; PULSE 68–80; RESP 16–18; TEMP 36.5–37.4; O2SAT 97–100
[2021-03-15] MEDS: Lactated Ringers 1,000 ML 125 ML IVCONT ×2 (01:09→11:13)
[2021-03-15] MEDS: ondansetron HCL 4 MG/2 ML VIAL IVPUSH ×4 (01:13→21:56)
[2021-03-15] MEDS: Omeprazole 20 MG CAPSULE.DR PO ×2 (06:23→16:25)
[2021-03-15 07:07] LABS: Anion Gap 12 (12-20); Blood Urea Nitrogen 3 mg/dL (9-16); Calcium 9.3 mg/dL (8.4-10.2); Carbon Dioxide 28 mmol/L (22-29); Chloride 105 mmol/L (96-108); Creatinine Clr Calc Pharmacy 59.8; Estimated Glomerular Filt Rate 59; Glucose Random 76 mg/dL (60-115); Potassium 4.4 mmol/L (3.3-5.1); Sodium 141 mmol/L (135-145)
--- NOTE | 2021-03-15 08:35 | MHC.CM.PN ---
at this time dc plan remains the same, for patient to return home no svcs. cm to cont. to follow.
[2021-03-15] MEDS: Cholecalciferol (Vitamin D3) 25 MCG TABLET 125 MCG PO (08:51)
[2021-03-15] MEDS: Ascorbic Acid 500 MG TABLET PO (08:52)
[2021-03-15] MEDS: buPROPion HCl XL 300 MG TAB.ER.24H PO (08:52)
[2021-03-15] MEDS: Multivitamin TABLET 1 TAB PO (08:52)
[2021-03-15] MEDS: FLUoxetine HCl 20 MG CAPSULE 40 MG PO (08:53)
[2021-03-15] MEDS: Ferrous Sulfate 324 MG TABLET.DR PO (08:53)
[2021-03-15] MEDS: amLODIPine Besylate 2.5 MG TABLET PO (08:54)
[2021-03-15] MEDS: 0.9 % Sodium Chloride Flush 3 ML SYRINGE IVFLUSH (08:56)
--- NOTE | 2021-03-15 14:10 | P.PNIM_ITS ---
Subjective Subjective Date of Service: 03/15/21 Interval History: Stil c/o n/v, at least 4 times today--apparently this has been an ongoing issue since November Review of Systems n/v, no abd pain Gastrointestinal Gastrointestinal: Reports nausea Physical Exam Vital Signs: Vital Signs: Last Vital Signs Temp 98.3 F 03/15/21 12:00 Pulse 76 03/15/21 12:00 Resp 17 03/15/21 12:00 BP 159/88 H 03/15/21 12:00 Pulse Ox 99 03/15/21 12:00 Body Mass Index 28.7 Const: Other: General: AO X 3, no acute distress Resp: CTA bilateral CVS: S1,S2,RRR GI: +BS, NT, no distention Skin: No rash Neuro: motor grossly intact Psych: appropriate affect Objective Data Active Medications Acetaminophen (Acetaminophen 325 Mg Tablet) 650 mg PO ONCE PRN PRN Reason: Pain, Mild (Pain Scale 1-3) Amlodipine Besylate (Amlodipine Besylate 2.5 Mg Tablet) 2.5 mg PO DAILY [facility]; Protocol Last Admin: 03/15/21 08:54 Dose: 2.5 mg Documented by: RALEIGH Ascorbic Acid (Ascorbic Acid 500 Mg Tablet) 500 mg PO DAILY [facility] Last Admin: 03/15/21 08:52 Dose: 500 mg Documented by: RALEIGH Atorvastatin Calcium (Atorvastatin Calcium 10 Mg Tablet) 10 mg PO BEDTIME [facility] Last Admin: 03/14/21 21:46 Dose: 10 mg Documented by: SHAHEEN Bupropion HCl (Bupropion Hcl Xl 300 Mg Tab.Er.24h) 300 mg PO DAILY [facility] Last Admin: 03/15/21 08:52 Dose: 300 mg Documented by: RALEIGH Calcium Carbonate (Calcium Carbonate 500 Mg Tablet) 500 mg PO DAILY [facility] Last Admin: 03/15/21 08:55 Dose: 500 mg Documented by: RALEIGH Enoxaparin Sodium (Enoxaparin Sodium 40 Mg/0.4 Ml Syringe) 40 mg SUBCUT Q24H [facility] Last Admin: 03/14/21 21:40 Dose: 40 mg Documented by: SHAHEEN Ferrous Sulfate (Ferrous Sulfate 324 Mg Tablet.Dr) 324 mg PO DAILY [facility] Last Admin: 03/15/21 08:53 Dose: 324 mg Documented by: RALEIGH Fluoxetine HCl (Fluoxetine Hcl 20 Mg Capsule) 40 mg PO DAILY [facility] Last Admin: 03/15/21 08:53 Dose: 40 mg Documented by: RALEIGH Hydrochlorothiazide (Hydrochlorothiazide 25 Mg Tablet) 25 mg PO DAILY [facility] Last Admin: 03/14/21 09:00 Dose: 25 mg Documented by: COOPER Lactated Ringer's (Lr) 1,000 mls @ 125 mls/hr IVCONT .Q8H [facility] Last Admin: 03/15/21 11:13 Dose: 125 mls/hr Documented by: RALEIGH Promethazine HCl 6.25 mg/ (Sodium Chloride) 50.25 mls @ 201 mls/hr IV Q6H PRN PRN Reason: Nausea Last Infusion: 03/14/21 10:15 Dose: 0 mls/hr Documented by: COOPER Azithromycin 250 mg/ Sodium (Chloride) 250 mls @ 125 mls/hr IV Q12H [facility] Lisinopril (Lisinopril 20 Mg Tablet) 20 mg PO DAILY [facility] Last Admin: 03/14/21 09:00 Dose: 20 mg Documented by: COOPER Multivitamins/Vitamin C (Multivitamin Tablet) 1 tab PO DAILY [facility] Last Admin: 03/15/21 08:52 Dose: 1 tab Documented by: RALEIGH Naproxen (Naproxen 250 Mg Tablet) 250 mg PO BID [facility] Last Admin: 03/14/21 09:00 Dose: 250 mg Documented by: COOPER Omeprazole (Omeprazole 20 Mg Cody.) 20 mg PO BID@0630,1630 [facility] Last Admin: 03/15/21 06:23 Dose: 20 mg Documented by: DARLINE Ondansetron HCl (Ondansetron Hcl 4 Mg/2 Ml Vial) 4 mg IVPUSH ONCE PRN PRN Reason: Nausea and Vomiting Ondansetron HCl (Ondansetron Hcl 4 Mg/2 Ml Vial) 4 mg IVPUSH Q6H [facility] Last Admin: 03/15/21 13:10 Dose: 4 mg Documented by: COOPER Pharmacy Consult (Consult Rx Perform Med Rec) 1 each MISCELLANE ONCE PRN PRN Reason: Consult order Prazosin HCl (Prazosin Hcl 1 Mg Capsule) 2 mg PO BEDTIME [facility]; Protocol Last Admin: 03/14/21 21:41 Dose: 2 mg Documented by: SHAHEEN Sodium Chloride (0.9 % Sodium Chloride Flush 3 Ml Syringe) 3 ml IVFLUSH QSHIFT [facility] Last Admin: 03/15/21 08:56 Dose: 3 ml Documented by: RALEIGH Vitamin D (Cholecalciferol (Vitamin D3) 25 Mcg Tablet) 125 mcg PO DAILY [facility] Last Admin: 03/15/21 08:51 Dose: 125 mcg Documented by: RALEIGH Ziprasidone (Ziprasidone 20 Mg Capsule) 20 mg PO BEDTIME [facility] Last Admin: 03/14/21 21:41 Dose: 20 mg Documented by: SHAHEEN Labs CBC & Chem 7: 03/09/21 17:05 03/15/21 06:09 Labs: Laboratory Results - last 24 hr 03/14/21 03/15/21 14:12 06:09 Anion Gap 10 L 12 Estim Creat Clear Calc 56.4 59.8 Estimated GFR 55 59 Random Glucose 70 76 Calcium 9.4 9.3 Assessment and Plan (1) Intractable vomiting: Status: Acute Assessment and Plan: 55-year-old female with multiple comorbidities and abdominal surgery for weight loss in the [place] came with intractable nausea vomiting and weight loss as above. 1. Intractable nausea vomiting:? Differential diagnosis :?Hiatal hernia, GERD versus esophageal motility disorders versus ulcer. limitted oral intake GI evaluation-for EGD? today-hiatal hernia? biopsies done, distal and proximal esophagus dilation.? Gastric erythema.post surgical changes of sleeve noted, no stricture. Duodenum: Normal bulb and descending duodenum, bx taken. - continue antiemetic -pending gastric emptying study 2. htn:? Blood pressure fluctuating, Hold lisinopril hydrochlorothiazide If blood pressure persistently above 140s we will add small dose amlodipine. 3. Hypercholesteremia:? Continue statin? 4. Mild normochromic anemia: Patient is on iron supplements, follows up with GI outpatient. 5. PTSD and anxiety depression: Continue bupropion, zasperidone DVT prophylaxis with Lovenox Quality Stroke Does the patient have a stroke diagnosis?: No VTE Prior VTE?: No VTE Risk Level:: Medical - moderate - high VTE Device Contraindication: N/A - Device Ordered VTE Drug Contraindication: N/A - Med Ordered
[2021-03-15] MEDS: Prazosin HCL 1 MG CAPSULE 2 MG PO (21:53)
[2021-03-15] MEDS: Ziprasidone 20 MG CAPSULE PO (21:53)
[2021-03-15] MEDS: Enoxaparin Sodium 40 MG/0.4 ML SYRINGE SUBCUT (21:56)
[2021-03-15] MEDS: Atorvastatin Calcium 10 MG TABLET PO (21:56)
[2021-03-16 03:42] VITALS: BP 135/79; PULSE 77; RESP 16; TEMP 36.9; O2SAT 98
[2021-03-16] MEDS: Omeprazole 20 MG CAPSULE.DR PO (05:25)
[2021-03-16 11:52] VITALS: BP 148/90; PULSE 75; RESP 18; TEMP 36.8; O2SAT 99
[2021-03-16 12:02] VITALS: BP 148/90; PULSE 77
[2021-03-16] MEDS: FLUoxetine HCl 20 MG CAPSULE 40 MG PO (12:02)
[2021-03-16] MEDS: Cholecalciferol (Vitamin D3) 25 MCG TABLET 125 MCG PO (12:02)
[2021-03-16] MEDS: buPROPion HCl XL 300 MG TAB.ER.24H PO (12:02)
[2021-03-16] MEDS: Ferrous Sulfate 324 MG TABLET.DR PO (12:02)
[2021-03-16] MEDS: amLODIPine Besylate 2.5 MG TABLET PO (12:02)
[2021-03-16] MEDS: ondansetron HCL 4 MG/2 ML VIAL IVPUSH (12:03)
[2021-03-16] MEDS: 0.9 % Sodium Chloride Flush 3 ML SYRINGE IVFLUSH (12:03)
[2021-03-16] MEDS: Ascorbic Acid 500 MG TABLET PO (12:03)
[2021-03-16] MEDS: Multivitamin TABLET 1 TAB PO (12:04)
[2021-03-16 15:18] VITALS: BP 140/88; PULSE 75; RESP 18; TEMP 36.6; O2SAT 92
--- NOTE | 2021-03-16 16:07 | P.DS_ITS ---
DS: Providers Provider Date of Service: 03/16/21 Date of admission: 03/14/21 13:24 Primary care physician: Demi Lr MD Consults: 03/09/21 18:57 Consult to Gastroenterology Routine Consulting Provider: Redd Urias Reason for consultation: Dysphagia Has provider been notified: No DS: Diagnosis Discharge Diagnosis (1) Intractable vomiting: Status: Acute DS: Summary Hospital Course Hospital Course: 55 y/o female with history of morbid obesity-had history of lap pending and reversal and subsequently given , s/p laproscopic sleeve gastrectomy 2017, hiatial hernia, esophageal dysmotility, GERD: Patient came to the hospital because of having dysphagia with both solid and liquid, she says her says dysphagia is more with solid than liquid. She had unremarkable CT scan about 1 month ago.? She had an upper GI series done in July showing the esophageal dysmotility and hiatal hernia.? She reports over the last 2 days she has had increased vomiting episodes of both solids and liquids.? She states at times she feels like things are getting stuck in her throat and she vomits it right back up.? Other times it is just moments after she eats were everything comes back up.? She has not been able to keep anything down in the last 2 days.? She reports ongoing epigastric pain that is unchanged over the last month.? She is moving her bowels normally.? She has no fever or chills.? No chest pain or shortness of breath.? She reports an unintentional 40 lb weight loss since November. She followed by GI - seen by GI on 02/24 with plans to get an EGD and gastric emptying study. She reports unable to get tests done until May 20, 2021.? Hospital course: Patient came with intractable nausea vomiting-started on symptomatic therapy including IV Zofran, ppi-subsequently seen by GI patient has balloon dilation of esophagus-symptoms are improving, in addition GI have done EGD? - showed hiatal hernia? biopsies done, distal and proximal esophagus dilation.? Gastric erythema.post surgical changes of sleeve noted, no stricture.Duodenum: Normal bulb and descending duodenum, biopsies taken. Subsequently patient has started tolerating the diet well, she subsequently had a gastric emptying study which was unremarkable. As nex step GI is recommending upper GI with small bowel follow through to be done on outpatient basis. A CT of head is done to rule out a central processs, she has no neuro symptoms of any kind. She wishes to go home today and any further testing to be done on outpatient basis. Will add Phenergan to help with nausea/vomitting. Patient is to follow up with GI out patiently. Above management discussed with the patient in detail length she understand and in agreement with the above plan, time spent 50 minutes and 50% time spent on counseling. Significant findings: As above. Procedures performed: None. Treatment and response: As above. Complications: None. Time Spent with Patient Time attestation: Total time spent providing and/or coordinating discharge services: Discharge coordination time: Greater than 30 minutes Quality: Stroke Does the patient have a stroke diagnosis?: No Physical Exam Vital Signs: Vital Signs: Last Vital Signs Temp 98 F 03/16/21 15:18 Pulse 75 03/16/21 15:18 Resp 18 03/16/21 15:18 BP 140/88 H 03/16/21 15:18 Pulse Ox 92 03/16/21 15:18 Body Mass Index 28.7 DS: Data Data Completed and Pending Completed studies during hospitalization [Text1]: Pending at discharge 03/11/21 12:50 Surgical [PTH] Routine Discharge Plan Discharge Anticipated Discharge Date/Time: 03/16/21 16:12 Patient Disposition: Home, Self-Care Discharge Diagnosis: Intractable nausea vomiting. Referrals: Marco Antonio Royal MD [Physician] - 1 Week (outpatiently) Po,Demi Rendon MD [Primary Care Provider] - 1 Week Discharge Medications: New promethazine 12.5 mg tablet 12.5 mg PO QID PRN (Reason: nausea and vomiting) Qty: 14 RF: 0 Continued ferrous sulfate 325 mg (65 mg iron) tablet 325 mg PO DAILY Qty: 30 RF: 3 ascorbic acid (vitamin C) [Vitamin C] 500 mg tablet 500 mg PO DAILY Qty: 30 RF: 3 meloxicam 7.5 mg tablet 7.5 mg PO DAILY Qty: 30 RF: 1 omeprazole 20 mg capsule,delayed release(DR/EC) 20 mg PO BID Qty: 180 RF: 1 lisinopril-hydrochlorothiazide 20-25 mg tablet 1 tab PO DAILY Qty: 90 RF: 1 simvastatin 10 mg tablet 10 mg PO BEDTIME Qty: 90 RF: 1 clonazepam 0.5 mg Tablet 0.5 mg PO DAILY PRN (Reason: Anxiety) RF: 0 fluoxetine [Prozac] 20 mg Capsule 40 mg PO DAILY RF: 0 pzlckgfhisvi-qjelaxwo-buspsd Tablet 1 tab PO DAILY RF: 0 cholecalciferol (vitamin D3) [Vitamin D3] 125 mcg (5,000 unit) Tablet 125 mcg PO DAILY RF: 0 ziprasidone HCl [Geodon] 20 mg capsule 20 mg PO BEDTIME 30 Days Qty: 15 RF: 1 ondansetron HCl 4 mg tablet 1 tab PO BID-TID PRN (Reason: nausea/vomiting) RF: 0 prazosin 1 mg capsule 2 mg PO BEDTIME RF: 0 bupropion HCl 150 mg tablet extended release 24 hr 300 mg PO QAM RF: 0 calcium carbonate [Calcium 500] 500 mg calcium (1,250 mg) tablet,chewable 500 mg PO DAILY RF: 0 Discharge Orders: Discharge Order (Routine); Ordered 03/16/21 Ordered By: Edenilson Mendez Diet: advance to usual diet and low fat, low cholesterol Activity on Discharge: As tolerated Stand Alone Forms: Patient Portal Discharge page Care Plan Goals: Patient came with intractable nausea vomiting-started on symptomatic therapy including IV Zofran, ppi-subsequently seen by GI patient has balloon dilation of esophagus-symptoms are improving, in addition GI have done EGD? - showed hiatal hernia? biopsies done, distal and proximal esophagus dilation.? Gastric erythema.post surgical changes of sleeve noted, no stricture.Duodenum: Normal bulb and descending duodenum, biopsies taken. Subsequently patient has started tolerating the diet well, discussed with the GI patient can go home today-if symptoms reoccur then patient will need gastric e mptying study and even esophageal monometry studies if needed in future. Patient is to follow up with GI out patiently. Health Concerns: As above. Plan of Treatment: As above. Assessment: As above. Discharge Date/Time: 03/16/21 18:56
== END 2021-03-16 18:56 | disposition home or self-care (01) | DRG 392 ==
LOC: HO.ED 18:02 → HO.EDOVER 19:01 → HO.IMC 19:24
PROVIDERS: Internal Medicine Gastroenterology; Physician Assistant; Admitting Provider Internal Medicine; Emergency Provider Emergency Medicine; PCP Internal Medicine; Visit Provider Internal Medicine
PROC: 0DJ08ZZ Inspection of Upper Intestinal Tract, Via Natural or Artificial Opening Endoscopic (ICD-10-PCS; CPT 43235; principal; 2021-03-11 12:00)
DX: R11.2 Nausea with vomiting, unspecified (principal); F43.10 Post-traumatic stress disorder, unspecified; K21.9 Gastro-esophageal reflux disease without esophagitis; R13.10 Dysphagia, unspecified; K44.9 Diaphragmatic hernia without obstruction or gangrene; D64.9 Anemia, unspecified; Z98.84 Bariatric surgery status; Z87.891 Personal history of nicotine dependence; Z79.1 Long term (current) use of non-steroidal anti-inflammatories (NSAID); Z79.899 Other long term (current) drug therapy
CPT/HCPCS: 36415; 70450; 78264; 80048; 80076; 80307; 81003; 83690; 83735; 85025; 87635; 88305; 88342; 93005; 96361; 96374; 99225; 99285; A9541; C1726; J0456; J1650; J2405; J2550; J2765

== ENCOUNTER 2021-03-30 10:57 | Outpatient (REF) | payer OTHER, SELFPAY ==
[2021-03-30 13:40] LABS: Alanine Aminotransferase 21 U/L (0-31); Albumin Level 4.5 g/dL (3.5-5.0); Alkaline Phosphatase 62 U/L (39-117); Aspartate Amino Transferase 24 U/L (5-31); Bilirubin Direct 0.2 mg/dL (0.0-0.5); Bilirubin Total 0.7 mg/dL (0.0-1.0); Total Protein 7.2 g/dL (6.5-8.0)
[2021-04-06 14:27] LABS: Gliadin Deamidated IgA Ab <1.0 U/mL; Gliadin Deamidated IgG Ab <1.0 U/mL; Transglutaminase Ab IgG <1.0 U/mL; Transglutaminase IgA <1.0 U/mL
== END 2021-03-30 10:58 | disposition home or self-care (01) ==
LOC: HO.LAB 10:57
PROVIDERS: PCP Internal Medicine; Referring Provider Internal Medicine; Visit Provider Nurse Practitioner
DX: R13.10 Dysphagia, unspecified (principal); K21.9 Gastro-esophageal reflux disease without esophagitis; R11.2 Nausea with vomiting, unspecified; Z83.71 Family history of colonic polyps
CPT/HCPCS: 36415; 80076; 83516; 99212

== ENCOUNTER → 2021-05-20 10:38 | Outpatient (BNVA) | payer OTHER, SELFPAY | PROVIDERS: PCP Internal Medicine; Referring Provider Internal Medicine; Visit Provider Nurse Practitioner | DX: R11.2 Nausea with vomiting, unspecified (principal); K22.0 Achalasia of cardia | CPT/HCPCS: 99212 ==

== ENCOUNTER 2021-05-24 10:52 | Outpatient (REF) | payer OTHER, SELFPAY | END 2021-05-24 10:53 | disposition home or self-care (01) | LOC: HO.LNP 10:52 | PROVIDERS: Visit Provider Nurse Practitioner | DX: R11.2 Nausea with vomiting, unspecified (principal) | CPT/HCPCS: 87338 ==

== ENCOUNTER 2021-06-17 07:49 | Outpatient (REF) | payer OTHER, SELFPAY ==
--- NOTE | ~2021-06-17 | FL_ITS ---
EXAMINATION: FL UPPER GI AIR-CONTRAST STUDY WITH BARIUM SWALLOW CLINICAL INFORMATION: Dysphagia and upper abdominal pain. COMPARISON: None TECHNIQUE: Routine upper GI air-contrast study was performed in upright and lying position. Barium swallow was performed in upright view following oral administration of barium-coated turkey and barium tablet. FINDINGS: Following oral administration of thick barium and effervescent granules, there is normal propagation of bolus from the oral cavity through the pharynx, esophagus into the stomach. There is a small incarcerated hiatal hernia. There is moderate holdup of barium within the distal esophagus likely secondary to hiatal hernia. No laryngeal penetration or aspiration is seen. The mucosal pattern of the esophagus is normal. On placing patient supine and prone, there is a small caliber stomach with normal propagation of bolus from the stomach into the duodenum and the sweep. The mucosal pattern of the stomach and the duodenum is normal. On placing patient in upright and oral administration of thin barium and barium-coated turkey, there is normal propagation of bolus from the oral cavity into the distal esophagus. There is again holdup of solid food within the distal esophagus likely secondary to hiatal hernia. On oral administration of barium tablet, there is significant holdup in the distal esophagus/hiatal hernia. FL/FL upper GI w air w Ba Swallow IMPRESSION: Small hiatal hernia with moderate holdup of liquids, solids and barium tablet within the hiatal hernia. This also results in mild dilation of the distal esophagus. The mucosal pattern is otherwise unremarkable.
== END 2021-06-17 07:50 | disposition home or self-care (01) ==
LOC: HO.XRAY 07:49
PROVIDERS: PCP Internal Medicine; Visit Provider Internal Medicine
DX: R13.10 Dysphagia, unspecified (principal)
CPT/HCPCS: 74246

== ENCOUNTER 2021-06-22 10:58 | Outpatient (REF) | payer OTHER, SELFPAY ==
[2021-06-22 12:11] LABS: MANUAL DIFF FLAG NO
[2021-06-22 12:37] LABS: Basophils Percent Auto 0.4 % (0-2); Eosinophils Absolute Auto 0.1 X10*3/uL (0.0-0.4); Eosinophils Percent Auto 1.1 % (0-4); Hematocrit 33.6 % (37.0-47.0); Imm Gran Abs Auto 0.02 X10*3/uL (0.00-0.03); Imm Gran Pct Auto 0.2 % (0.0-0.4); Lymphocytes Absolute Auto 2.1 X10*3/uL (1.2-4.9); Lymphocytes Percent Auto 24.5 % (20-40); Mean Corpuscular HGB Conc 32.7 g/dl (31.0-35.0); Mean Corpuscular Hemoglobin 28.9 pg (27.0-33.0); Mean Corpuscular Volume 88.2 fL (80.0-98.0); Mean Platelet Volume 9.2 fL (9.4-12.3); Monocytes Absolute Auto 0.7 X10*3/uL (0.1-1.2); Monocytes Percent Auto 8.1 % (2-11); Neutrophils Absolute Auto 5.5 x10*3/uL (2.0-8.3); Neutrophils Percent Auto 65.7 % (45-73); Platelet Count 280 X10*3/uL (160-400); Red Blood Count 3.81 X10*6/uL (4.20-5.50); Red Cell Distribution Width 12.8 % (11.0-16.0); White Blood Count 8.4 X10*3/uL (4.8-10.8)
[2021-06-22 13:16] LABS: Erythrocyte Sedimentation Rate 8 MM/HR (0-20)
[2021-06-22 13:29] LABS: Alanine Aminotransferase 27 U/L (0-31); Albumin Level 4.1 g/dL (3.5-5.0); Alkaline Phosphatase 60 U/L (39-117); Anion Gap 9 (12-20); Aspartate Amino Transferase 32 U/L (5-31); Bilirubin Total 0.3 mg/dL (0.0-1.0); Blood Urea Nitrogen 18 mg/dL (9-16); C Reactive Protein 0.26 mg/dL (< or = 0.50); Calcium 9.7 mg/dL (8.4-10.2); Carbon Dioxide 32 mmol/L (22-29); Chloride 104 mmol/L (96-108); Estimated Glomerular Filt Rate 58; Glucose Random 85 mg/dL (60-115); Potassium 4.3 mmol/L (3.3-5.1); Sodium 141 mmol/L (135-145); Total Protein 6.4 g/dL (6.5-8.0)
== END 2021-06-22 10:59 | disposition home or self-care (01) ==
LOC: HO.LAB 10:58
PROVIDERS: PCP Internal Medicine; Visit Provider Nurse Practitioner Family
DX: M25.50 Pain in unspecified joint (principal)
CPT/HCPCS: 36415; 80053; 85025; 85652; 86140; 99212

== ENCOUNTER → 2021-06-28 10:46 | Outpatient (BNVA) | payer OTHER, SELFPAY | PROVIDERS: PCP Internal Medicine; Referring Provider Internal Medicine; Visit Provider Nurse Practitioner | DX: K44.0 Diaphragmatic hernia with obstruction, without gangrene (principal); K21.9 Gastro-esophageal reflux disease without esophagitis; R13.10 Dysphagia, unspecified | CPT/HCPCS: 99212 ==

== ENCOUNTER → 2021-07-15 08:54 | Outpatient (BNVA) | payer OTHER, SELFPAY | PROVIDERS: PCP Internal Medicine; Visit Provider Surgery | DX: K44.0 Diaphragmatic hernia with obstruction, without gangrene (principal); Z98.84 Bariatric surgery status | CPT/HCPCS: 99202 ==

== ENCOUNTER → 2021-08-04 09:16 | Outpatient (BNVA) | payer OTHER, SELFPAY | PROVIDERS: PCP Internal Medicine; Referring Provider Internal Medicine; Visit Provider Nurse Practitioner | DX: K44.0 Diaphragmatic hernia with obstruction, without gangrene (principal); R13.10 Dysphagia, unspecified; K21.9 Gastro-esophageal reflux disease without esophagitis | CPT/HCPCS: 99212 ==

== ENCOUNTER 2021-11-20 16:24 | Emergency (ER) | payer OTHER, SELFPAY ==
--- NOTE | ~2021-11-20 | XR_ITS ---
EXAMINATION: XR LUMBOSACRAL SPINE CLINICAL INFORMATION: Low back pain COMPARISON: None TECHNIQUE: Three views of the lumbosacral spine. FINDINGS: Normal alignment. No subluxation. Vertebral body heights and intervertebral disc space heights are maintained. Minimal anterior endplate proliferative change at L3-L4 and L4-L5. Mild disc degenerative change at T11-T12 with endplate sclerosis and mild endplate proliferative change. Surgical clips in the left upper quadrant with suture material. Residual enteric contrast within colon and possibly the appendix. XR/XR lumbar spine 2-3V IMPRESSION: 1. No subluxation or fracture. 2. Preserved intervertebral disc heights.
[2021-11-20 16:42] VITALS: BP 141/85; PULSE 87; RESP 16; TEMP 36.8; O2SAT 97; BMI 28.3
[2021-11-20 16:51] LABS: MANUAL DIFF FLAG NO
[2021-11-20 17:03] LABS: Basophils Percent Auto 0.3 % (0-2); Eosinophils Absolute Auto 0.1 X10*3/uL (0.0-0.4); Hematocrit 36.2 % (37.0-47.0); Hemoglobin 12.1 g/dl (12.0-16.0); Imm Gran Abs Auto 0.01 X10*3/uL (0.00-0.03); Imm Gran Pct Auto 0.1 % (0.0-0.4); Lymphocytes Absolute Auto 2.5 X10*3/uL (1.2-4.9); Lymphocytes Percent Auto 28.8 % (20-40); Mean Corpuscular HGB Conc 33.4 g/dl (31.0-35.0); Mean Corpuscular Hemoglobin 28.7 pg (27.0-33.0); Mean Platelet Volume 9.2 fL (9.4-12.3); Monocytes Absolute Auto 0.7 X10*3/uL (0.1-1.2); Monocytes Percent Auto 8.2 % (2-11); Neutrophils Absolute Auto 5.4 x10*3/uL (2.0-8.3); Neutrophils Percent Auto 61.6 % (45-73); Platelet Count 289 X10*3/uL (160-400); Red Blood Count 4.21 X10*6/uL (4.20-5.50); Red Cell Distribution Width 12.8 % (11.0-16.0); White Blood Count 8.7 X10*3/uL (4.8-10.8)
[2021-11-20 17:21] LABS: Alanine Aminotransferase 29 U/L (0-31); Albumin Level 4.5 g/dL (3.5-5.0); Alkaline Phosphatase 74 U/L (39-117); Anion Gap 16 (12-20); Aspartate Amino Transferase 36 U/L (5-31); Bilirubin Direct < 0.2 mg/dL (0.0-0.5); Bilirubin Total 0.2 mg/dL (0.0-1.0); Blood Urea Nitrogen 13 mg/dL (9-16); Calcium 9.9 mg/dL (8.4-10.2); Carbon Dioxide 26 mmol/L (22-29); Chloride 106 mmol/L (96-108); Creatinine Clr Calc Pharmacy 49.1; Estimated Glomerular Filt Rate 48; Glucose Random 99 mg/dL (60-115); Lipase 56 U/L (8-78); Potassium 4.4 mmol/L (3.3-5.1); Sodium 144 mmol/L (135-145); Total Protein 7.1 g/dL (6.5-8.0)
[2021-11-20 18:47] VITALS: BP 166/84; PULSE 69; RESP 16; TEMP 37.1; O2SAT 99
--- NOTE | 2021-11-20 19:09 | ED.NAVMDI ---
HPI - Nausea/Vomiting/Diarrhea General Chief complaint: Nausea/Vomiting/Diarrhea Stated complaint: diarrhea/hemorrhoids/lower back pain Time Seen by Provider: 11/20/21 19:09 Source: patient Mode of arrival: ambulatory Limitations: no limitations History of Present Illness HPI Narrative: Patient complaining of chronic abdominal pain diarrhea over a month 2- 3 times a day with nausea seen surgeon who advised barium studies patient comes here for same also complaining of low back pain no fever no chills Related Data Home Medications Medication Instructions Recorded Confirmed bupropion HCl 150 mg 24 hr tablet, 300 mg PO QAM 03/05/20 08/30/21 extended release cholecalciferol (vitamin D3) 125 125 mcg PO DAILY 06/08/20 08/30/21 mcg (5,000 unit) tablet (Vitamin D3) clonazepam 0.5 mg tablet 0.5 mg PO DAILY PRN Anxiety 06/08/20 08/30/21 fluoxetine 20 mg capsule (Prozac) 40 mg PO DAILY 06/08/20 08/30/21 lxbdgwnaidtt-ivjqwutv-wotlbt tablet 1 tab PO DAILY 06/08/20 08/30/21 calcium carbonate 500 mg calcium 500 mg PO DAILY 08/11/20 08/30/21 (1,250 mg) chewable tablet (Calcium 500) prazosin 1 mg capsule 2 mg PO BEDTIME 12/22/20 08/30/21 ziprasidone HCl 20 mg capsule 20 mg PO BEDTIME 08/09/21 08/30/21 Previous Rx's Medication Instructions Recorded lisinopril 20 1 tab PO DAILY #90 caps 06/23/21 mg-hydrochlorothiazide 25 mg tablet simvastatin 10 mg tablet 10 mg PO BEDTIME #90 tabs 06/23/21 ferrous sulfate 325 mg (65 mg 325 mg PO DAILY #90 caps 07/25/21 iron) tablet omeprazole 20 mg capsule,delayed 40 mg PO BID #180 caps 08/04/21 release amoxicillin 875 mg-potassium 1 tab PO BID 10 days #20 tabs 08/30/21 clavulanate 125 mg tablet ascorbic acid (vitamin C) 500 mg 500 mg PO DAILY #90 caps 11/10/21 tablet (Vitamin C) sennosides 8.6 mg-docusate sodium 2 tab-cap PO BEDTIME 30 days #60 11/10/21 50 mg tablet (Senna-S) tabs meloxicam 7.5 mg tablet 7.5 mg PO DAILY #30 tabs 11/16/21 dicyclomine 20 mg tablet 20 mg PO QID PRN abdominal pain 11/20/21 #20 tabs ondansetron 4 mg disintegrating 4 mg PO Q6-8H PRN nausea and 11/20/21 tablet vomiting #7 tabs Allergies Allergy/AdvReac Type Severity Reaction Status Date / Time No Known Allergies Allergy Verified 11/20/21 16:41 [No Known Allergies*] Review of Systems Review of Systems: Yes all other systems are reviewed and are negative [facility] Past Medical History Medical History Anxiety and depression Cervical radiculopathy Difficulty sleeping GERD (gastroesophageal reflux disease) History of colon polyps (~2015) HTN (hypertension) Hx of hemorrhoids Hypercholesterolemia Hypersomnolence Impaired glucose tolerance Insomnia Intestinal malabsorption following gastrectomy Nausea Obesity (BMI 30-39.9) PTSD (post-traumatic stress disorder) Snoring Vitamin D deficiency Surgical History History of bilateral breast reduction surgery (~2011) History of History of carpal tunnel release (~2001) History of colonoscopy (~2015) History of colposcopy (~1991) History of esophagogastroduodenoscopy (EGD) (~2020) History of excision of mass (~2016) History of laparoscopic adjustable gastric banding (~2010) History of neck surgery History of sleeve gastrectomy (~2016) History of tubal ligation (~2000) Hx of abdominoplasty Status post panniculectomy (~2013) Family History Family History Father Diabetes Mother High blood pressure High cholesterol Dementia Daughter Healthy female Son No problems noted. Son High blood pressure High cholesterol Other Mental health disorder Social History Social History Household Members: Children Housing: House Alcohol intake: never Patient Tobacco Use Status: Former Tobacco user Tobacco use type: Cigarette Years Smoked: stopped 1989 e-Cigarette/Vaping Use: Never Used Second Hand Smoke Exposure: No Advance Directives: No Advance Directives Information Provided: No service: No Current occupational status: disabled Cognitive needs: Yes (cane) Hearing needs: No Vision needs: Yes (glasses) Physical Exam Vital Signs: Vital Signs: Last Vital Signs Temp 98.7 F 11/20/21 18:47 Pulse 79 11/20/21 19:40 Resp 20 11/20/21 19:40 BP 150/85 H 11/20/21 19:40 Pulse Ox 99 11/20/21 19:40 O2 Del Method 11/20/21 19:40 BMI result Body Mass Index 28.3 Appearance: Alert. Oriented X3. No acute distress. Eyes: no pallor or icterus ENT: Pharynx normal. Oral Mucosa moist Neck: Normal inspection. Neck supple. CVS: Normal heart rate and rhythm. Pulses normal. Respiratory: No respiratory distress. Equal air entry bilateral, Abdomen: Soft, mild diffuse tenderness, Bowel sounds are present, no mass palpable, Skin: Skin warm and dry. Normal skin color. Normal skin turgor. Extremities: No lower extremity edema. No calf tenderness Neuro: Oriented X 3. MDM - Nausea/Vomiting/Diarrhea MDM Narrative Medical decision making narrative: Patient's symptoms likely from IBS with anxiety discharge patient home on dicyclomine labs are stable Lab Data Attestation: I reviewed the patient's lab results. Result diagrams: 11/20/21 16:45 11/20/21 16:45 Labs: Lab Results 11/20/21 11/20/21 11/20/21 Range/Units 16:45 16:45 20:03 WBC 8.7 (4.8-10.8) X10*3/uL RBC 4.21 (4.20-5.50) X10*6/uL Hgb 12.1 (12.0-16.0) g/dl Hct 36.2 L (37.0-47.0) % MCV 86.0 (80.0-98.0) fL MCH 28.7 (27.0-33.0) pg MCHC 33.4 (31.0-35.0) g/dl RDW 12.8 (11.0-16.0) % Plt Count 289 (160-400) X10*3/uL MPV 9.2 L (9.4-12.3) fL Immature Gran % (Auto) 0.1 (0.0-0.4) % Neut % (Auto) 61.6 (45-73) % Lymph % (Auto) 28.8 (20-40) % [place] % (Auto) 8.2 (2-11) % Eos % (Auto) 1.0 (0-4) % Baso % (Auto) 0.3 (0-2) % Lymph # (Auto) 2.5 (1.2-4.9) X10*3/uL [place] # (Auto) 0.7 (0.1-1.2) X10*3/uL Eos # (Auto) 0.1 (0.0-0.4) X10*3/uL Baso # (Auto) 0.0 (0.0-0.2) X10*3/uL Abs Immat Gran (auto) 0.01 (0.00-0.03) X10*3/uL Absolute Neuts (auto) 5.4 (2.0-8.3) x10*3/uL Absolute Nucleated RBC 0.000 (0.0-0.012) X10*3/uL Nucleated RBC % (auto) 0.0 (0.0-0.2) /100WBC Sodium 144 (135-145) mmol/L Potassium 4.4 (3.3-5.1) mmol/L Chloride 106 (96-108) mmol/L Carbon Dioxide 26 (22-29) mmol/L Anion Gap 16 (12-20) BUN 13 (9-16) mg/dL Creatinine 1.16 (0.5-1.4) mg/dL Estim Creat Clear Calc 49.1 Estimated GFR 48 Random Glucose 99 (60-115) mg/dL Calcium 9.9 (8.4-10.2) mg/dL Total Bilirubin 0.2 (0.0-1.0) mg/dL Direct Bilirubin < 0.2 (0.0-0.5) mg/dL AST 36 H (5-31) U/L ALT 29 (0-31) U/L Alkaline Phosphatase 74 D (39-117) U/L Total Protein 7.1 (6.5-8.0) g/dL Albumin 4.5 (3.5-5.0) g/dL Lipase 56 (8-78) U/L Urine Color YELLOW Urine Appearance CLEAR Urine pH 6.0 (5.0-8.0) Ur Specific Crystal 1.025 (1.005-1.025) Urine Protein NEG (NEG-TRACE) MG/DL Urine Glucose (UA) NEG (NEG) MG/DL Urine Ketones NEG (NEG) MG/DL Urine Blood NEG (NEG) Urine Nitrite NEG (NEG) Ur Leukocyte Esterase NEG (NEG) Discharge Plan Discharge Clinical Impression: Irritable bowel syndrome, Hemorrhoids Patient Disposition: Home, Self-Care Instructions: Irritable Bowel Syndrome (ED), Hemorrhoids (ED) Additional Instructions: Take medication as prescribed for abdominal pain diarrhea Use preparation H suppository twice daily till heels completely Prescriptions: New dicyclomine 20 mg tablet 20 mg PO QID PRN (Reason: abdominal pain) Qty: 20 0RF ondansetron 4 mg tablet,disintegrating 4 mg PO Q6-8H PRN (Reason: nausea and vomiting) Qty: 7 0RF No Action lisinopril-hydrochlorothiazide 20-25 mg tablet 1 tab PO DAILY Qty: 90 2RF simvastatin 10 mg tablet 10 mg PO BEDTIME Qty: 90 2RF ferrous sulfate 325 mg (65 mg iron) tablet 325 mg PO DAILY Qty: 90 3RF sennosides-docusate sodium [Senna-S] 8.6-50 mg tablet 2 tab-cap PO BEDTIME 30 Days Qty: 60 3RF ascorbic acid (vitamin C) [Vitamin C] 500 mg tablet 500 mg PO DAILY Qty: 90 3RF meloxicam 7.5 mg tablet 7.5 mg PO DAILY Qty: 30 0RF clonazepam 0.5 mg Tablet 0.5 mg PO DAILY PRN (Reason: Anxiety) fluoxetine [Prozac] 20 mg Capsule 40 mg PO DAILY Rx Instructions: Take 2 tabs PO Daily gmffkpgupjzj-rqnoosep-zotplz Tablet 1 tab PO DAILY cholecalciferol (vitamin D3) [Vitamin D3] 125 mcg (5,000 unit) Tablet 125 mcg PO DAILY prazosin 1 mg capsule 2 mg PO BEDTIME ziprasidone HCl 20 mg capsule 20 mg PO BEDTIME amoxicillin-pot clavulanate 875-125 mg tablet 1 tab PO BID 10 Days Qty: 20 0RF bupropion HCl 150 mg tablet extended release 24 hr 300 mg PO QAM calcium carbonate [Calcium 500] 500 mg calcium (1,250 mg) tablet,chewable 500 mg PO DAILY omeprazole 20 mg capsule,delayed release(DR/EC) 40 mg PO BID Qty: 180 1RF Interventions: ED Discharge Assessment Last Done: 11/20/21 21:02 Discharge Date/Time: 11/20/21 21:05
[2021-11-20] MEDS: Dicyclomine HCl 10 MG CAPSULE 20 MG PO (19:39)
[2021-11-20] MEDS: traMADoL HCL 50 MG TABLET PO (19:39)
[2021-11-20 19:40] VITALS: BP 150/85; PULSE 79; RESP 20; O2SAT 99
[2021-11-20 20:17] LABS: Appearance Urine CLEAR; Color Urine YELLOW; Glucose Urine UA NEG (NEG); Leukocyte Esterase Urine NEG (NEG); Nitrite Urine NEG (NEG); Specific Gravity - Urine 1.025 (1.005-1.025); Urine Blood NEG (NEG); Urine Ketones NEG (NEG); Urine Protein NEG (NEG-TRACE)
== END 2021-11-20 21:05 | disposition home or self-care (01) ==
PROVIDERS: Emergency Provider Internal Medicine; PCP Internal Medicine
DX: K58.9 Irritable bowel syndrome, unspecified (principal); K64.9 Unspecified hemorrhoids; M54.50 Low back pain, unspecified; R11.2 Nausea with vomiting, unspecified; Z79.899 Other long term (current) drug therapy; Z87.891 Personal history of nicotine dependence
CPT/HCPCS: 36415; 72100; 80048; 80076; 81003; 83690; 85025; 99284

== ENCOUNTER 2021-12-07 13:52 | Emergency (ER) | payer OTHER, SELFPAY ==
--- NOTE | ~2021-12-07 | CT_ITS ---
EXAMINATION: CT ABDOMEN AND PELVIS WITHOUT CONTRAST CLINICAL INFORMATION: Abdominal and rectal pain COMPARISON: CT abdomen pelvis 02/05/2021 TECHNIQUE: Multidetector volumetric imaging was performed from the superior aspect of the liver through the pubic symphysis. Sagittal and coronal reformatted images were obtained on the technologist's workstation. This CT examination was performed using dose optimization techniques as appropriate, variously including the following: *Automated exposure control *Adjustment of mA and/or kV according to patient size (this includes techniques or standardized protocols for targeted exams where dose is matched to indication/reason for exam; i.e. extremities or head) *Use of iterative reconstruction technique DLP: 520 mGy-cm FINDINGS: LUNG BASES: The visualized lung bases are unremarkable. LIVER, GALLBLADDER, AND BILIARY TREE: The liver is normal in size, shape, and attenuation. No focal hepatic lesion or biliary ductal dilatation is present. The gallbladder is unremarkable with no evidence of radiopaque gallstones, gallbladder wall thickening, or obvious pericholecystic inflammatory changes. PANCREAS: Unremarkable. SPLEEN: Unremarkable. ADRENAL GLANDS: Unremarkable. KIDNEYS AND URETERS: The kidneys are normal in size, shape, and attenuation. 2 small punctate nonobstructing calculi present at the lower pole of the right kidney, unchanged from prior No hydronephrosis, hydroureter, or other calculi seen. No perinephric stranding. BLADDER: Unremarkable. GASTROINTESTINAL TRACT: A small hiatal hernia is present. The patient has undergone a gastric sleeve. The rectum and the descending colon are completely collapsed and used coastal thickening may be present. Findings might indicate colitis. The remainder the colon appears normal. The small bowel is unremarkable. The appendix is unremarkable. ABDOMINAL WALL: No significant hernia is appreciated. There is been prior abdominal wall surgery. LYMPH NODES: No retroperitoneal lymphadenopathy. VASCULAR: Unremarkable. PELVIC VISCERA: The uterus and adnexa are unremarkable. OSSEOUS STRUCTURES: Unremarkable. CT/CT abdomen pelvis wo con IMPRESSION: 1. Findings in the rectosigmoid and descending colon mucosal thickening are suggestive of colitis. Large amount of inflammatory change in the surrounding fat is not present. 2. Other findings include prior gastric sleeve with prior hernia and nonobstructing punctate calculi lower pole right kidney. Fleischner guidelines were followed.
[2021-12-07 13:55] VITALS: BP 138/86; PULSE 84; TEMP 36.6; O2SAT 97; BMI 28.7
[2021-12-07 14:07] LABS: MANUAL DIFF FLAG NO
[2021-12-07 14:10] LABS: Basophils Percent Auto 0.4 % (0-2); Eosinophils Absolute Auto 0.1 X10*3/uL (0.0-0.4); Eosinophils Percent Auto 1.5 % (0-4); Hematocrit 35.9 % (37.0-47.0); Hemoglobin 12.1 g/dl (12.0-16.0); Imm Gran Abs Auto 0.01 X10*3/uL (0.00-0.03); Imm Gran Pct Auto 0.1 % (0.0-0.4); Lymphocytes Percent Auto 30.1 % (20-40); Mean Corpuscular HGB Conc 33.7 g/dl (31.0-35.0); Mean Corpuscular Hemoglobin 29.4 pg (27.0-33.0); Mean Corpuscular Volume 87.1 fL (80.0-98.0); Mean Platelet Volume 9.4 fL (9.4-12.3); Monocytes Absolute Auto 0.6 X10*3/uL (0.1-1.2); Monocytes Percent Auto 9.1 % (2-11); Neutrophils Absolute Auto 3.9 x10*3/uL (2.0-8.3); Neutrophils Percent Auto 58.8 % (45-73); Platelet Count 278 X10*3/uL (160-400); Red Blood Count 4.12 X10*6/uL (4.20-5.50); Red Cell Distribution Width 12.9 % (11.0-16.0); White Blood Count 6.7 X10*3/uL (4.8-10.8)
[2021-12-07 14:46] LABS: Alanine Aminotransferase 31 U/L (0-31); Albumin Level 4.3 g/dL (3.5-5.0); Alkaline Phosphatase 72 U/L (39-117); Anion Gap 13 (12-20); Aspartate Amino Transferase 31 U/L (5-31); Bilirubin Direct < 0.2 mg/dL (0.0-0.5); Bilirubin Total < 0.2 mg/dL (0.0-1.0); Blood Urea Nitrogen 19 mg/dL (9-16); Carbon Dioxide 27 mmol/L (22-29); Chloride 104 mmol/L (96-108); Creatinine Clr Calc Pharmacy 51.7; Estimated Glomerular Filt Rate 51; Glucose Random 103 mg/dL (60-115); Lipase 74 U/L (8-78); Potassium 4.4 mmol/L (3.3-5.1); Sodium 140 mmol/L (135-145)
[2021-12-07 16:28] LABS: Appearance Urine Clear; Color Urine Yellow; Glucose Urine UA Negative (Negative); Leukocyte Esterase Urine Negative (Negative); Nitrite Urine Negative (Negative); PH 5.5 (5.0-8.0); Urine Blood Negative (Negative); Urine Ketones Negative (Negative); Urine Protein Negative (Neg-Trace)
[2021-12-07 18:12] VITALS: BP 174/97; PULSE 65; RESP 16; TEMP 36.8; O2SAT 99
--- NOTE | 2021-12-07 18:39 | ED_ITS ---
HPI - Nausea/Vomiting/Diarrhea General Chief complaint: Nausea/Vomiting/Diarrhea Stated complaint: back pain, stomachache Time Seen by Provider: 12/07/21 18:38 Source: patient Mode of arrival: ambulatory Limitations: no limitations History of Present Illness HPI Narrative: 56-year-old female past medical history significant for esophageal dysmotility, IBS, hypertension, anemia, occlusion, dysphagia, status post laparoscopic sleeve in 2017, PTSD, anxiety, fibromyalgia presenting to the emergency department with complaints of nausea, vomiting (bile), diarrhea (brown liquid w/o blood) alternating with constipation, abdominal bloating, rectal pain, lower back pain that has been going on for 2-3 weeks. Patient tells me that she was seen for this in the past was told she had IBS. She tells me that the symptoms are not improving, she tells me she has not seen GI yet she is scheduled to see them in January. She reports that her main concern today is rectal pain, she tells me it is worse with walking, better at rest. She reports she is using preparation H and witch Samira which have not been helping. Patient denies any rectal intercourse, STDs, urinary symptoms, vaginal pain, vaginal discharge, vaginal bleeding, chest pain, shortness of breath, fevers, chills, weakness, urinary/bowel incontinence/retention, back trauma. MD elicited complaint: nausea, vomiting and diarrhea Pertinent past history: other (IBS) Onset (ago): week(s) (3) Related Data Home Medications Medication Instructions Recorded Confirmed bupropion HCl 150 mg 24 hr tablet, 300 mg PO QAM 03/05/20 11/23/21 extended release cholecalciferol (vitamin D3) 125 125 mcg PO DAILY 06/08/20 11/23/21 mcg (5,000 unit) tablet (Vitamin D3) clonazepam 0.5 mg tablet 0.5 mg PO DAILY PRN Anxiety 06/08/20 11/23/21 fluoxetine 20 mg capsule (Prozac) 40 mg PO DAILY 06/08/20 11/23/21 [id number] tablet 1 tab PO DAILY 06/08/20 11/23/21 calcium carbonate 500 mg calcium 500 mg PO DAILY 08/11/20 11/23/21 (1,250 mg) chewable tablet (Calcium 500) prazosin 1 mg capsule 2 mg PO BEDTIME 12/22/20 11/23/21 ziprasidone HCl 20 mg capsule 20 mg PO BEDTIME 08/09/21 11/23/21 Previous Rx's Medication Instructions Recorded lisinopril 20 1 tab PO DAILY #90 caps 06/23/21 mg-hydrochlorothiazide 25 mg tablet simvastatin 10 mg tablet 10 mg PO BEDTIME #90 tabs 06/23/21 ferrous sulfate 325 mg (65 mg 325 mg PO DAILY #90 caps 07/25/21 iron) tablet omeprazole 20 mg capsule,delayed 40 mg PO BID #180 caps 08/04/21 release ascorbic acid (vitamin C) 500 mg 500 mg PO DAILY #90 caps 11/10/21 tablet (Vitamin C) sennosides 8.6 mg-docusate sodium 2 tab-cap PO BEDTIME 30 days #60 11/10/21 50 mg tablet (Senna-S) tabs dicyclomine 20 mg tablet 20 mg PO QID PRN abdominal pain 11/20/21 #20 tabs ondansetron 4 mg disintegrating 4 mg PO Q6-8H PRN nausea and 11/20/21 tablet vomiting #7 tabs meloxicam 7.5 mg tablet 7.5 mg PO DAILY #30 tabs 12/07/21 pramoxine 1 % topical foam 1 appl GA BID #15 grams 12/07/21 (Proctofoam) Allergies Allergy/AdvReac Type Severity Reaction Status Date / Time No Known Allergies Allergy Verified 12/07/21 13:55 [No Known Allergies*] [facility] Past Medical History Medical History (Updated 12/07/21 @ 19:28 by DUTCH Scott) Cervical radiculopathy GERD (gastroesophageal reflux disease) History of colon polyps (~2015) HTN (hypertension) Hx of hemorrhoids Hypercholesterolemia Hypersomnolence Impaired glucose tolerance Insomnia Intestinal malabsorption following gastrectomy Nausea Neck pain Obesity (BMI 30-39.9) Polyarthralgia Polymyalgia PTSD (post-traumatic stress disorder) Shoulder pain, right Snoring Vitamin D deficiency Surgical History History of bilateral breast reduction surgery (~2011) History of History of carpal tunnel release (~2001) History of colonoscopy (~2015) History of colposcopy (~1991) History of esophagogastroduodenoscopy (EGD) (~2020) History of excision of mass (~2016) History of laparoscopic adjustable gastric banding (~2010) History of neck surgery History of sleeve gastrectomy (~2016) History of tubal ligation (~2000) Hx of abdominoplasty Status post panniculectomy (~2013) Family History Family History Father Diabetes Mother High blood pressure High cholesterol Dementia Daughter Healthy female Son No problems noted. Son High blood pressure High cholesterol Other Mental health disorder Social History Social History Household Members: Children Housing: House Alcohol intake: never Patient Tobacco Use Status: Former Tobacco user Tobacco use type: Cigarette Years Smoked: 1989 e-Cigarette/Vaping Use: Never Used Second Hand Smoke Exposure: No Advance Directives: No Advance Directives Information Provided: Yes service: No Current occupational status: disabled Cognitive needs: Yes (cane) Hearing needs: No Vision needs: Yes (glasses) Physical Exam Vital Signs: Vital Signs: Last Vital Signs Temp 98.3 F 12/07/21 18:12 Pulse 65 12/07/21 18:12 Resp 16 12/07/21 18:12 BP 174/97 H 12/07/21 18:12 Pulse Ox 99 12/07/21 18:12 O2 Del Method 12/07/21 18:12 BMI result Body Mass Index 28.7 vss Appearance: Alert.? Oriented X3.? No acute distress.? Head: Normocephalic, atraumatic, no step-offs or deformities Eyes: Pupils equal, round and reactive to light.? ENT: Pharynx normal.? Neck: Normal inspection.? Neck supple.? CVS: Normal heart rate and rhythm.? Pulses normal.? Respiratory: No respiratory distress.? Breath sounds normal.? Abdomen: Soft and nontender.? Skin: Skin warm and dry.? Normal skin color.? Normal skin turgor.? Extremities: No lower extremity edema.? No calf ttp. 5/5 strength to bilateral upper and lower extremities. 2+ patellar reflexes equal bilateral. Sensitive exam: Reveals 1 small external nonthrombosed hemorrhoid painful to palpation. Pain with digital rectal exam. However, normal rectal tone. Back: No midline tenderness, no C-spine tenderness, full range of motion, no CVA tenderness bilaterally Neuro: Oriented X 3.? No motor deficit.? No sensory deficit. CN 2-12 intact . Ambulating with steady gait, no saddle paresthesias. Course Reevaluation(s) Reevaluation #1: I had look at hemorrhoid, agrees hemorrhoid is not thrombosed. CT of the abdomen and pelvis consistent with colitis, no other acute findings on exam. Upon re-evaluation patient eating and drinking with no difficulties. Abdomen is less tender. She tells me that her main complaint is the rectal discomfort. Likely viral colitis, unlikely ischemic colitis or bacterial colitis. Patient has not had any episodes of diarrhea during her visit today.. UA clean . At this time patient will be discharged home with GI follow-up. Advised patient to follow-up with PCP. Time: 22:28 MDM - Nausea/Vomiting/Diarrhea MDM Narrative Medical decision making narrative: 1900 56-year-old female presenting with nausea, vomiting, diarrhea alternating with constipation, abdominal bloating, lower back pain and rectal pain. Physical examination significant for what appears to be an external nonthro mbosed hemorrhoid that is painful to palpation. Abdomen soft diffusely tender nondistended, with normoactive bowel sounds. Regular rate and rhythm. Lungs clear. Neuro nonfocal. Rectal pain likely secondary to hemorrhoid. Will obtain a CT of the abdomen and pelvis as patient is diffusely tender on exam. Low suspicion for acute abdomen or bowel obstruction. Likely IBS. History and physical examination not consistent with proctitis. History and physical examination not consistent with epidural abscess or cauda equina. Plan- labs, urine, imaging. Medical Records Attestation: I reviewed the patient's medical records. Lab Data Attestation: I reviewed the patient's lab results. Result diagrams: 12/07/21 14:02 12/07/21 14:02 Labs: Lab Results 12/07/21 12/07/21 12/07/21 Range/Units 14:02 14:02 16:07 WBC 6.7 (4.8-10.8) X10*3/uL RBC 4.12 L (4.20-5.50) X10*6/uL Hgb 12.1 (12.0-16.0) g/dl Hct 35.9 L (37.0-47.0) % MCV 87.1 (80.0-98.0) fL MCH 29.4 (27.0-33.0) pg MCHC 33.7 (31.0-35.0) g/dl RDW 12.9 (11.0-16.0) % Plt Count 278 (160-400) X10*3/uL MPV 9.4 (9.4-12.3) fL Immature Gran % (Auto) 0.1 (0.0-0.4) % Neut % (Auto) 58.8 (45-73) % Lymph % (Auto) 30.1 (20-40) % [place] % (Auto) 9.1 (2-11) % Eos % (Auto) 1.5 (0-4) % Baso % (Auto) 0.4 (0-2) % Lymph # (Auto) 2.0 (1.2-4.9) X10*3/uL [place] # (Auto) 0.6 (0.1-1.2) X10*3/uL Eos # (Auto) 0.1 (0.0-0.4) X10*3/uL Baso # (Auto) 0.0 (0.0-0.2) X10*3/uL Abs Immat Gran (auto) 0.01 (0.00-0.03) X10*3/uL Absolute Neuts (auto) 3.9 (2.0-8.3) x10*3/uL Absolute Nucleated RBC 0.000 (0.0-0.012) X10*3/uL Nucleated RBC % (auto) 0.0 (0.0-0.2) /100WBC Sodium 140 (135-145) mmol/L Potassium 4.4 (3.3-5.1) mmol/L Chloride 104 (96-108) mmol/L Carbon Dioxide 27 (22-29) mmol/L Anion Gap 13 (12-20) BUN 19 H (9-16) mg/dL Creatinine 1.11 (0.5-1.4) mg/dL Estim Creat Clear Calc 51.7 Estimated GFR 51 Random Glucose 103 (60-115) mg/dL Calcium 9.0 D (8.4-10.2) mg/dL Total Bilirubin < 0.2 (0.0-1.0) mg/dL Direct Bilirubin < 0.2 (0.0-0.5) mg/dL AST 31 (5-31) U/L ALT 31 (0-31) U/L Alkaline Phosphatase 72 (39-117) U/L Total Protein 7.0 (6.5-8.0) g/dL Albumin 4.3 (3.5-5.0) g/dL Lipase 74 (8-78) U/L Urine Color Yellow Urine Appearance Clear Urine pH 5.5 (5.0-8.0) Ur Specific [place] 1.020 (1.005-1.025) Urine Protein Negative (Neg-Trace) mg/dL Urine Glucose (UA) Negative (Negative) mg/dL Urine Ketones Negative (Negative) mg/dL Urine Blood Negative (Negative) Urine Nitrite Negative (Negative) Ur Leukocyte Esterase Negative (Negative) Critical Care Time Critical Care Time Critical Care Time: No Discharge Plan Discharge Clinical Impression: Abdominal bloating, IBS (irritable colon syndrome), Acute hemorrhoid Patient Disposition: Home, Self-Care Instructions: Irritable Bowel Syndrome (ED), Hemorrhoids (ED), Gas and Bloating (ED), Abdominal Pain (ED), Sitz Bath (DC) Additional Instructions: Take your medications as prescribed. If you were prescribed antibiotics today, it is important that you take your medication to their entirety, do not skip any doses, do not finish them early. Follow-up with your primary care provider this week. Please follow-up with gastroenterology. Return to the emergency department with new or worsening symptoms. Such as fevers, chills, chest pain, shortness of breath, nausea, vomiting, dizziness, headache, vision changes, lethargy In case of emergency call 911 CT/CT abdomen pelvis wo con IMPRESSION: 1.? Findings in the rectosigmoid and descending colon mucosal thickening are suggestive of colitis. Large amount of inflammatory change in the surrounding fat is not present. 2.? Other findings include prior gastric sleeve with prior hernia and nonobstructing punctate calculi lower pole right kidney. ? Fleischner guidelines were followed. Prescriptions: New pramoxine [Proctofoam] 1 % foam 1 appl GA BID Qty: 15 2RF No Action lisinopril-hydrochlorothiazide 20-25 mg tablet 1 tab PO DAILY Qty: 90 2RF simvastatin 10 mg tablet 10 mg PO BEDTIME Qty: 90 2RF ferrous sulfate 325 mg (65 mg iron) tablet 325 mg PO DAILY Qty: 90 3RF sennosides-docusate sodium [Senna-S] 8.6-50 mg tablet 2 tab-cap PO BEDTIME 30 Days Qty: 60 3RF ascorbic acid (vitamin C) [Vitamin C] 500 mg tablet 500 mg PO DAILY Qty: 90 3RF meloxicam 7.5 mg tablet 7.5 mg PO DAILY Qty: 30 0RF clonazepam 0.5 mg Tablet 0.5 mg PO DAILY PRN (Reason: Anxiety) fluoxetine [Prozac] 20 mg Capsule 40 mg PO DAILY Rx Instructions: Take 2 tabs PO Daily [id number] Tablet 1 tab PO DAILY cholecalciferol (vitamin D3) [Vitamin D3] 125 mcg (5,000 unit) Tablet 125 mcg PO DAILY dicyclomine 20 mg tablet 20 mg PO QID PRN (Reason: abdominal pain) Qty: 20 0RF ondansetron 4 mg tablet,disintegrating 4 mg PO Q6-8H PRN (Reason: nausea and vomiting) Qty: 7 0RF prazosin 1 mg capsule 2 mg PO BEDTIME ziprasidone HCl 20 mg capsule 20 mg PO BEDTIME bupropion HCl 150 mg tablet extended release 24 hr 300 mg PO QAM calcium carbonate [Calcium 500] 500 mg calcium (1,250 mg) tablet,chewable 500 mg PO DAILY omeprazole 20 mg capsule,delayed release(DR/EC) 40 mg PO BID Qty: 180 1RF Referrals: Be,Demi Rendon MD [Primary Care Provider] - 2 days Redd Urias [Physician] - 1 week Stand Alone Forms: Work/School Release
[2021-12-07] MEDS: Simethicone 80 MG TAB.CHEW 160 MG PO (19:50)
== END 2021-12-07 22:48 | disposition home or self-care (01) ==
PROVIDERS: Emergency Provider Emergency Medicine Emergency Medical Services; PCP Internal Medicine
DX: R14.0 Abdominal distension (gaseous) (principal); K58.9 Irritable bowel syndrome, unspecified; K64.4 Residual hemorrhoidal skin tags; K62.89 Other specified diseases of anus and rectum; R11.2 Nausea with vomiting, unspecified; M54.50 Low back pain, unspecified; I10 Essential (primary) hypertension; E78.00 Pure hypercholesterolemia, unspecified; Z98.84 Bariatric surgery status; Z79.02 Long term (current) use of antithrombotics/antiplatelets; Z79.899 Other long term (current) drug therapy
CPT/HCPCS: 36415; 74176; 80048; 80076; 81003; 83690; 85025; 99283; 99284

== ENCOUNTER 2021-12-09 16:04 | Outpatient (REF) | payer OTHER, SELFPAY ==
[2021-12-09 17:34] LABS: C Reactive Protein 3.05 mg/dL (< or = 0.50)
[2021-12-10 12:10] LABS: CDiff Gene PCR NEGATIVE (Negative)
[2021-12-10 13:50] LABS: Campylobacter Not Detected (Not Detect.); Plesiomonas shigelloides Not Detected (Not Detect.); Salmonella Not Detected (Not Detect.); Vibrio Not Detected (Not Detect.); Vibrio Cholerae Not Detected (Not Detect.)
[2021-12-10 13:51] LABS: Adenovirus F 40/41 Not Detected (Not Detect.); Astrovirus Not Detected (Not Detect.); Cryptosporidium Not Detected (Not Detect.); Cyclospora cayetanensis Not Detected (Not Detect.); E. coli EAEC Not Detected (Not Detect.); E. coli EPEC Not Detected (Not Detect.); E. coli ETEC Not Detected (Not Detect.); E. coli STEC Not Detected (Not Detect.); Entamoeba histolytica Not Detected (Not Detect.); Giardia lamblia Not Detected (Not Detect.); Norovirus GI/GII Not Detected (Not Detect.); Rotavirus A Not Detected (Not Detect.); Sapovirus Not Detected (Not Detect.); Shigella sp./EIEC Not Detected (Not Detect.)
[2021-12-10 13:57] LABS: Yersinia enterocolitica Detected (Not Detect.)
[2021-12-19 15:23] LABS: Pancreatic Elastase-1 >500 mcg/g
== END 2021-12-09 16:05 | disposition home or self-care (01) ==
LOC: HO.LAB 16:04
PROVIDERS: PCP Internal Medicine; Visit Provider Nurse Practitioner
DX: R10.9 Unspecified abdominal pain (principal); R19.7 Diarrhea, unspecified
CPT/HCPCS: 36415; 82656; 86140; 87493; 87507; 99212

== ENCOUNTER → 2021-12-20 09:25 | Outpatient (BNVA) | payer OTHER, SELFPAY | PROVIDERS: PCP Internal Medicine; Visit Provider Student in an Organized Health Care Education/Training Program | DX: M79.7 Fibromyalgia (principal) | CPT/HCPCS: 99212 ==

== ENCOUNTER → 2021-12-23 09:52 | Outpatient (BNVA) | payer OTHER, SELFPAY | PROVIDERS: PCP Internal Medicine; Referring Provider Internal Medicine; Visit Provider Nurse Practitioner | DX: A04.6 Enteritis due to Yersinia enterocolitica (principal); K91.2 Postsurgical malabsorption, not elsewhere classified; K59.4 Anal spasm; R19.7 Diarrhea, unspecified; R11.2 Nausea with vomiting, unspecified; K21.9 Gastro-esophageal reflux disease without esophagitis; Z90.3 Acquired absence of stomach [part of] | CPT/HCPCS: 99212 ==

== ENCOUNTER → 2022-01-20 08:56 | Outpatient (BNVA) | payer OTHER, SELFPAY | PROVIDERS: PCP Internal Medicine; Visit Provider Nurse Practitioner | DX: A04.6 Enteritis due to Yersinia enterocolitica (principal); K21.9 Gastro-esophageal reflux disease without esophagitis; K59.00 Constipation, unspecified; K57.92 Diverticulitis of intestine, part unspecified, without perforation or abscess without bleeding | CPT/HCPCS: 99212 ==

== ENCOUNTER → 2022-02-10 11:31 | Outpatient (BNVA) | payer OTHER, SELFPAY | PROVIDERS: PCP Internal Medicine; Visit Provider Nurse Practitioner | DX: A04.6 Enteritis due to Yersinia enterocolitica (principal); K21.9 Gastro-esophageal reflux disease without esophagitis; K62.89 Other specified diseases of anus and rectum; R11.2 Nausea with vomiting, unspecified | CPT/HCPCS: 99212 ==

== ENCOUNTER 2022-02-17 09:48 | Outpatient (REF) | payer OTHER, SELFPAY ==
--- NOTE | ~2022-02-17 | MM_ITS ---
EXAMINATION: MM SCREENING DIGITAL BREAST TOMOSYNTHESIS, BILATERAL CLINICAL INFORMATION: Screening. Asymptomatic. The lifetime risk of breast cancer based on the Tyrer-Cuzick Model is 8%. COMPARISON: Mammography: 03/14/2021, 11/13/2019, 08/19/2018 TECHNIQUE: Digital breast tomosynthesis is performed in both the craniocaudal and mediolateral oblique views along with computer-aided detection (CAD). Synthesized 2D images are generated from the tomosynthesis. FINDINGS: There are scattered areas of fibroglandular density (ACR BI-RADS breast composition Category b). There are no significant masses, abnormal calcifications, or other abnormalities. Parenchymal pattern is similar to prior studies. There is no developing density or architectural abnormality. The axilla and skin contours are unremarkable. No significant changes. MM/MM tomosynthesis screening BI IMPRESSION: No mammographic evidence of malignancy. ASSESSMENT: BI-RADS 1: Negative RECOMMENDATION: Routine annual mammography screening. This patient's information was entered into a reminder system with a target due date for their next mammogram.
== END 2022-02-17 09:49 | disposition home or self-care (01) ==
LOC: HO.MAMMO 09:48
PROVIDERS: PCP Internal Medicine; Visit Provider Internal Medicine
DX: Z12.31 Encounter for screening mammogram for malignant neoplasm of breast (principal)
CPT/HCPCS: 77063; 77067

== ENCOUNTER 2022-03-01 10:33 | Emergency (ER) | payer OTHER, SELFPAY ==
--- NOTE | ~2022-03-01 | CT_ITS ---
EXAMINATION: CT ABDOMEN AND PELVIS WITH CONTRAST CLINICAL INFORMATION: Right-sided abdominal pain COMPARISON: CT abdomen pelvis 12/07/2021 TECHNIQUE: Multidetector volumetric images were obtained from the superior aspect of the liver through the pubic symphysis following administration 85 mL of Omnipaque 350 intravenous contrast. Sagittal and coronal reformatted images were obtained on the technologist's workstation. Oral contrast: No This CT examination was performed using dose optimization techniques as appropriate, variously including the following: *Automated exposure control *Adjustment of mA and/or kV according to patient size (this includes techniques or standardized protocols for targeted exams where dose is matched to indication/reason for exam; i.e. extremities or head) *Use of iterative reconstruction technique DLP: 524 mGy-cm FINDINGS: LUNG BASES: The visualized lung bases are unremarkable. LIVER, GALLBLADDER, AND BILIARY TREE: The liver is normal in size, shape, and attenuation. No focal hepatic lesion or biliary ductal dilatation is present. The gallbladder is unremarkable with no evidence of radiopaque gallstones, gallbladder wall thickening, or obvious pericholecystic inflammatory changes. PANCREAS: Unremarkable. SPLEEN: Unremarkable. ADRENAL GLANDS: Unremarkable. KIDNEYS AND URETERS: The kidneys are normal in size, shape, and attenuation. Only one of the previously seen 2 small punctate nonobstructing calculi present at the lower pole of the right kidney are seen on the current study. No ureteral calculi. No hydronephrosis or hydroureter seen. No perinephric stranding. BLADDER: Unremarkable. GASTROINTESTINAL TRACT: A small hiatal hernia is again seen. The patient has undergone a gastric sleeve. The rectum and the descending colon are completely collapsed similar in appearance to prior. The appendix is unremarkable. ABDOMINAL WALL: No significant hernia is appreciated. There is been prior abdominal wall surgery. LYMPH NODES: No retroperitoneal lymphadenopathy. VASCULAR: Unremarkable. PELVIC VISCERA: The uterus and adnexa are unremarkable. OSSEOUS STRUCTURES: Unremarkable. CT/CT abdomen pelvis w IV con IMPRESSION: 1. A definite cause for the patient's right-sided abdominal pain has not been found. Previously 2 stones were noted in the right kidney but there is now only 1. Perhaps the patient passed a stone which is no longer seen and not even in the bladder. 2. Other findings include prior gastric sleeve with prior hernia. Fleischner guidelines were followed.
--- NOTE | ~2022-03-01 | XR_ITS ---
EXAMINATION: XR CHEST CLINICAL INFORMATION: Cough and chest pain COMPARISON: None TECHNIQUE: Frontal view of the chest was obtained. FINDINGS: No significant abnormality is noted involving the heart, lungs, mediastinum, bony thorax or soft tissues. XR/XR chest 1V IMPRESSION: No acute pulmonary disease.
[2022-03-01 12:32] VITALS: BP 152/87; PULSE 83; RESP 16; TEMP 36.3; O2SAT 100; BMI 28.3
--- NOTE | 2022-03-01 12:35 | ECG_ITS ---
Test Reason : CP Blood Pressure : / mmHG Vent. Rate : 075 BPM Atrial Rate : 075 BPM P-R Int : 136 ms QRS Dur : 080 ms QT Int : 384 ms P-R-T Axes : 040 -11 043 degrees QTc Int : 428 ms Normal sinus rhythm Nonspecific T wave abnormality Abnormal ECG When compared with ECG of 14-MAR-2021 17:18, No significant change was found Referred By: Tad Rodrigues Electronically Signed By:LYDIA CORCORAN MD
--- NOTE | 2022-03-01 12:37 | ED.GENADULT ---
HPI - General Adult General Chief complaint: Nausea/Vomiting/Diarrhea Stated complaint: Flu Symptoms Time Seen by Provider: 03/01/22 18:29 Related Data Home Medications Medication Instructions Recorded Confirmed bupropion HCl 150 mg 24 hr tablet, 300 mg PO QAM 03/05/20 01/12/22 extended release clonazepam 0.5 mg tablet 0.5 mg PO DAILY PRN Anxiety 06/08/20 01/12/22 fluoxetine 20 mg capsule (Prozac) 40 mg PO DAILY 06/08/20 01/12/22 zlrpnfocjzgr-imcacagp-dzoskc tablet 1 tab PO DAILY 06/08/20 01/12/22 calcium carbonate 500 mg calcium 500 mg PO DAILY 08/11/20 01/12/22 (1,250 mg) chewable tablet (Calcium 500) prazosin 1 mg capsule 2 mg PO BEDTIME 12/22/20 01/12/22 ziprasidone HCl 20 mg capsule 20 mg PO BEDTIME 08/09/21 01/12/22 cholecalciferol (vitamin D3) 125 125 mcg PO DAILY 12/09/21 01/12/22 mcg (5,000 unit) capsule acetaminophen 500 mg tablet 1,000 mg PO Q6H PRN 12/23/21 01/12/22 (Tylenol Extra Strength) Previous Rx's Medication Instructions Recorded lisinopril 20 1 tab PO DAILY #90 caps 06/23/21 mg-hydrochlorothiazide 25 mg tablet simvastatin 10 mg tablet 10 mg PO BEDTIME #90 tabs 06/23/21 ferrous sulfate 325 mg (65 mg 325 mg PO DAILY #90 caps 07/25/21 iron) tablet omeprazole 20 mg capsule,delayed 40 mg PO BID #180 caps 08/04/21 release ascorbic acid (vitamin C) 500 mg 500 mg PO DAILY #90 caps 11/10/21 tablet (Vitamin C) dicyclomine 20 mg tablet 40 mg PO QID abdominal pain #240 12/09/21 tabs peg 3350-electrolytes 236 240 ml PO Q10M 1 day #4,000 mL 01/20/22 gram-22.74 gram-6.74 gram-5.86 gram solution (Golytely) sennosides 8.6 mg capsule (senna) 34.4 mg PO BEDTIME #120 caps 01/20/22 meloxicam 7.5 mg tablet 7.5 mg PO DAILY #30 tabs 02/08/22 promethazine 25 mg tablet 25 mg PO .qac supper PRN nausea 02/10/22 and vomiting #30 tabs Allergies Allergy/AdvReac Type Severity Reaction Status Date / Time No Known Allergies Allergy Verified 03/01/22 12:35 [No Known Allergies*] [facility] Past Medical History Medical History Abdominal cramping Cervical radiculopathy Constipation Diarrhea Esophageal dysmotility GERD (gastroesophageal reflux disease) History of colon polyps (~2015) HTN (hypertension) Hx of hemorrhoids Hypercholesterolemia Hypersomnolence Impaired glucose tolerance Insomnia Intestinal malabsorption following gastrectomy Nausea Nausea and vomiting Neck pain Obesity (BMI 30-39.9) Polyarthralgia Polymyalgia PTSD (post-traumatic stress disorder) Rectal spasm Shoulder pain, right Snoring Vitamin D deficiency Surgical History History of bilateral breast reduction surgery (~2011) History of History of carpal tunnel release (~2001) History of colonoscopy (~2015) History of colposcopy (~1991) History of esophagogastroduodenoscopy (EGD) (~2020) History of excision of mass (~2016) History of laparoscopic adjustable gastric banding (~2010) History of neck surgery History of sleeve gastrectomy (~2016) History of tubal ligation (~2000) Hx of abdominoplasty Status post panniculectomy (~2013) Family History Family History Father Diabetes Mother High blood pressure High cholesterol Dementia Daughter Healthy female Son No problems noted. Son High blood pressure High cholesterol Other Mental health disorder Social History Social History Household Members: Children Housing: House Alcohol intake: never Patient Tobacco Use Status: Former Tobacco user Tobacco use type: Cigarette Years Smoked: stopped 1989 e-Cigarette/Vaping Use: Never Used Second Hand Smoke Exposure: No service: No Current occupational status: disabled Cognitive needs: Yes (cane) Hearing needs: No Vision needs: Yes (glasses) Physical Exam ED Vital Signs: Vital Signs - 24 hr 03/01/22 12:32 Temperature 97.4 F Pulse Rate 83 Respiratory Rate 16 Blood Pressure 152/87 H Pulse Oximetry 100 Oxygen Delivery Method Room Air BMI result Body Mass Index 28.3 Course Course Course Narrative: Rapid meidcal screening done. patient seen for chest pain, diarrhea, nausea, vomitting, and abdominal pain 4 days. SARS, Chest xray, EKG, labs ordered Medications Administered Discontinued Medications Generic Name Dose Route Start Last Admin Trade Name Freq PRN Reason Stop Dose Admin Iohexol 100 ml 03/01/22 19:13 03/01/22 19:14 Iohexol 350 Mg/Ml 100 Ml Infus..Btl IV 03/01/22 19:14 85 ml ONCE ONE Administration Medical Decision Making Lab Data Result diagrams: 03/01/22 14:13 03/01/22 14:13 Labs: Lab Results 03/01/22 03/01/22 03/01/22 Range/Units 12:37 14:13 14:13 WBC 7.0 (4.8-10.8) X10*3/uL RBC 4.09 L (4.20-5.50) X10*6/uL Hgb 11.9 L (12.0-16.0) g/dl Hct 36.3 L (37.0-47.0) % MCV 88.8 (80.0-98.0) fL MCH 29.1 (27.0-33.0) pg MCHC 32.8 (31.0-35.0) g/dl RDW 13.4 (11.0-16.0) % Plt Count 264 (160-400) X10*3/uL MPV 8.8 L (9.4-12.3) fL Immature Gran % (Auto) 0.1 (0.0-0.4) % Neut % (Auto) 60.4 (45-73) % Lymph % (Auto) 30.0 (20-40) % [place] % (Auto) 7.4 (2-11) % Eos % (Auto) 1.7 (0-4) % Baso % (Auto) 0.4 (0-2) % Lymph # (Auto) 2.1 (1.2-4.9) X10*3/uL [place] # (Auto) 0.5 (0.1-1.2) X10*3/uL Eos # (Auto) 0.1 (0.0-0.4) X10*3/uL Baso # (Auto) 0.0 (0.0-0.2) X10*3/uL Abs Immat Gran (auto) 0.01 (0.00-0.03) X10*3/uL Absolute Neuts (auto) 4.2 (2.0-8.3) x10*3/uL Absolute Nucleated RBC 0.000 (0.0-0.012) X10*3/uL Nucleated RBC % (auto) 0.0 (0.0-0.2) /100WBC PT 10.5 (10.0-13.1) SEC INR 0.9 (0.9-1.1) APTT 32.9 (26.0-36.4) SEC Sodium (135-145) mmol/L Potassium (3.3-5.1) mmol/L Chloride (96-108) mmol/L Carbon Dioxide (22-29) mmol/L Anion Gap (12-20) BUN (9-16) mg/dL Creatinine (0.5-1.4) mg/dL Estim Creat Clear Calc Estimated GFR Random Glucose (60-115) mg/dL Calcium (8.4-10.2) mg/dL Total Bilirubin (0.0-1.0) mg/dL AST (5-31) U/L ALT (0-31) U/L Alkaline Phosphatase (39-117) U/L Troponin I High Sens (<3.5-17.0) ng/L B-Natriuretic Peptide (<100) pg/mL Total Protein (6.5-8.0) g/dL Albumin (3.5-5.0) g/dL Influenza Type A (PCR) NEGATIVE (Negative) Influenza Type B (PCR) NEGATIVE (Negative) RSV RNA Qual (PCR) NEGATIVE (Negative) SARS-CoV-2 RNA (RT-PCR) POSITIVE A (Negative) 03/01/22 03/01/22 03/01/22 Range/Units 14:13 14:13 14:13 WBC (4.8-10.8) X10*3/uL RBC (4.20-5.50) X10*6/uL Hgb (12.0-16.0) g/dl Hct (37.0-47.0) % MCV (80.0-98.0) fL MCH (27.0-33.0) pg MCHC (31.0-35.0) g/dl RDW (11.0-16.0) % Plt Count (160-400) X10*3/uL MPV (9.4-12.3) fL Immature Gran % (Auto) (0.0-0.4) % Neut % (Auto) (45-73) % Lymph % (Auto) (20-40) % [place] % (Auto) (2-11) % Eos % (Auto) (0-4) % Baso % (Auto) (0-2) % Lymph # (Auto) (1.2-4.9) X10*3/uL [place] # (Auto) (0.1-1.2) X10*3/uL Eos # (Auto) (0.0-0.4) X10*3/uL Baso # (Auto) (0.0-0.2) X10*3/uL Abs Immat Gran (auto) (0.00-0.03) X10*3/uL Absolute Neuts (auto) (2.0-8.3) x10*3/uL Absolute Nucleated RBC (0.0-0.012) X10*3/uL Nucleated RBC % (auto) (0.0-0.2) /100WBC PT (10.0-13.1) SEC INR (0.9-1.1) APTT (26.0-36.4) SEC Sodium 143 (135-145) mmol/L Potassium 4.7 (3.3-5.1) mmol/L Chloride 105 (96-108) mmol/L Carbon Dioxide 29 (22-29) mmol/L Anion Gap 14 (12-20) BUN 14 (9-16) mg/dL Creatinine 0.89 (0.5-1.4) mg/dL Estim Creat Clear Calc 64.0 Estimated GFR > 60 Random Glucose 93 (60-115) mg/dL Calcium 9.9 D (8.4-10.2) mg/dL Total Bilirubin 0.4 (0.0-1.0) mg/dL AST 25 (5-31) U/L ALT 24 (0-31) U/L Alkaline Phosphatase 72 (39-117) U/L Troponin I High Sens < 3.5 (<3.5-17.0) ng/L B-Natriuretic Peptide 29 (<100) pg/mL Total Protein 7.1 (6.5-8.0) g/dL Albumin 4.6 (3.5-5.0) g/dL Influenza Type A (PCR) (Negative) Influenza Type B (PCR) (Negative) RSV RNA Qual (PCR) (Negative) SARS-CoV-2 RNA (RT-PCR) (Negative) Discharge Plan Discharge Clinical Impression: COVID-19 Patient Disposition: Home, Self-Care Instructions: COVID-19 (Coronavirus Disease 2019) (ED) Additional Instructions: Quarantine for 5 days Motrin or tylenol for pain or fever as needed Increase fluids, rest We discussed Paxlovid the treatment available for COVID and you declined this Prescriptions: No Action lisinopril-hydrochlorothiazide 20-25 mg tablet 1 tab PO DAILY Qty: 90 2RF simvastatin 10 mg tablet 10 mg PO BEDTIME Qty: 90 2RF ferrous sulfate 325 mg (65 mg iron) tablet 325 mg PO DAILY Qty: 90 3RF ascorbic acid (vitamin C) [Vitamin C] 500 mg tablet 500 mg PO DAILY Qty: 90 3RF meloxicam 7.5 mg tablet 7.5 mg PO DAILY Qty: 30 0RF clonazepam 0.5 mg Tablet 0.5 mg PO DAILY PRN (Reason: Anxiety) fluoxetine [Prozac] 20 mg Capsule 40 mg PO DAILY Rx Instructions: Take 2 tabs PO Daily xwirlnhuhnsy-ofkvdpwc-xzokag Tablet 1 tab PO DAILY prazosin 1 mg capsule 2 mg PO BEDTIME ziprasidone HCl 20 mg capsule 20 mg PO BEDTIME bupropion HCl 150 mg tablet extended release 24 hr 300 mg PO QAM calcium carbonate [Calcium 500] 500 mg calcium (1,250 mg) tablet,chewable 500 mg PO DAILY promethazine 25 mg tablet 25 mg PO .qac supper PRN (Reason: nausea and vomiting) Qty: 30 3RF senna 8.6 mg capsule 34.4 mg PO BEDTIME Qty: 120 3RF peg 3350-electrolytes [Golytely] 236-22.74-6.74 -5.86 gram recon soln 240 ml PO Q10M 1 Days Qty: 4000 0RF Rx Instructions: until fecal effluent is clear; do not exceed a total volume of 2,000 mL omeprazole 20 mg capsule,delayed release(DR/EC) 40 mg PO BID Qty: 180 1RF cholecalciferol (vitamin D3) 125 mcg (5,000 unit) capsule 125 mcg PO DAILY dicyclomine 20 mg tablet 40 mg PO QID Qty: 240 3RF acetaminophen [Tylenol Extra Strength] 500 mg tablet 1,000 mg PO Q6H PRN Referrals: Po,Demi Rendon MD [Primary Care Provider] - 5 days Interventions: ED Discharge Assessment Last Done: 03/01/22 19:55 Discharge Date/Time: 03/01/22 19:55
[2022-03-01 13:33] LABS: Influenza A PCR NEGATIVE (Negative); Influenza B PCR NEGATIVE (Negative); Resp Syncy Virus RNA Qual PCR NEGATIVE (Negative); SARS COV2 PCR INHOUSE POSITIVE (Negative)
[2022-03-01 14:18] LABS: MANUAL DIFF FLAG NO
[2022-03-01 14:20] LABS: Basophils Percent Auto 0.4 % (0-2); Eosinophils Absolute Auto 0.1 X10*3/uL (0.0-0.4); Eosinophils Percent Auto 1.7 % (0-4); Hematocrit 36.3 % (37.0-47.0); Hemoglobin 11.9 g/dl (12.0-16.0); Imm Gran Abs Auto 0.01 X10*3/uL (0.00-0.03); Imm Gran Pct Auto 0.1 % (0.0-0.4); Lymphocytes Absolute Auto 2.1 X10*3/uL (1.2-4.9); Mean Corpuscular HGB Conc 32.8 g/dl (31.0-35.0); Mean Corpuscular Hemoglobin 29.1 pg (27.0-33.0); Mean Corpuscular Volume 88.8 fL (80.0-98.0); Mean Platelet Volume 8.8 fL (9.4-12.3); Monocytes Absolute Auto 0.5 X10*3/uL (0.1-1.2); Monocytes Percent Auto 7.4 % (2-11); Neutrophils Absolute Auto 4.2 x10*3/uL (2.0-8.3); Neutrophils Percent Auto 60.4 % (45-73); Platelet Count 264 X10*3/uL (160-400); Red Blood Count 4.09 X10*6/uL (4.20-5.50); Red Cell Distribution Width 13.4 % (11.0-16.0)
[2022-03-01 14:27] LABS: INTERNATIONAL NORM RATIO 0.9 (0.9-1.1); Prothrombin Time 10.5 SEC (10.0-13.1)
[2022-03-01 14:30] LABS: Partial Thromboplastin Time 32.9 SEC (26.0-36.4)
[2022-03-01 14:39] LABS: Alanine Aminotransferase 24 U/L (0-31); Albumin Level 4.6 g/dL (3.5-5.0); Alkaline Phosphatase 72 U/L (39-117); Anion Gap 14 (12-20); Aspartate Amino Transferase 25 U/L (5-31); Bilirubin Total 0.4 mg/dL (0.0-1.0); Blood Urea Nitrogen 14 mg/dL (9-16); Calcium 9.9 mg/dL (8.4-10.2); Carbon Dioxide 29 mmol/L (22-29); Chloride 105 mmol/L (96-108); Estimated Glomerular Filt Rate > 60; Glucose Random 93 mg/dL (60-115); Potassium 4.7 mmol/L (3.3-5.1); Sodium 143 mmol/L (135-145); Total Protein 7.1 g/dL (6.5-8.0)
[2022-03-01 14:45] LABS: B Type Natriuretic Peptide 29 pg/mL (<100)
[2022-03-01 14:57] LABS: Troponin-I High Sensitivity < 3.5 ng/L (<3.5-17.0)
[2022-03-01] MEDS: iohexoL 350 MG/ML 100 ML INFUS..BTL IV (19:14)
--- NOTE | 2022-03-01 19:33 | ED_ITS ---
HPI - Nausea/Vomiting/Diarrhea General Chief complaint: Nausea/Vomiting/Diarrhea Stated complaint: Flu Symptoms Time Seen by Provider: 03/01/22 18:29 Source: patient and family Mode of arrival: ambulatory Limitations: no limitations History of Present Illness HPI Narrative: 56yo female with history of PTSD, anxiety, GERD (achalasia), lap band with removal, gastric sleeve here with complaints of several days of vomiting, diarrhea and abdominal cramping with cough. No fevers, chills, diarrhea, constipation or urinary symptoms. Associated nausea: Yes Related Data Home Medications Medication Instructions Recorded Confirmed bupropion HCl 150 mg 24 hr tablet, 300 mg PO QAM 03/05/20 01/12/22 extended release clonazepam 0.5 mg tablet 0.5 mg PO DAILY PRN Anxiety 06/08/20 01/12/22 fluoxetine 20 mg capsule (Prozac) 40 mg PO DAILY 06/08/20 01/12/22 rhxlrfeykqhu-nwwwqirz-zyvbct tablet 1 tab PO DAILY 06/08/20 01/12/22 calcium carbonate 500 mg calcium 500 mg PO DAILY 08/11/20 01/12/22 (1,250 mg) chewable tablet (Calcium 500) prazosin 1 mg capsule 2 mg PO BEDTIME 12/22/20 01/12/22 ziprasidone HCl 20 mg capsule 20 mg PO BEDTIME 08/09/21 01/12/22 cholecalciferol (vitamin D3) 125 125 mcg PO DAILY 12/09/21 01/12/22 mcg (5,000 unit) capsule acetaminophen 500 mg tablet 1,000 mg PO Q6H PRN 12/23/21 01/12/22 (Tylenol Extra Strength) Previous Rx's Medication Instructions Recorded lisinopril 20 1 tab PO DAILY #90 caps 06/23/21 mg-hydrochlorothiazide 25 mg tablet simvastatin 10 mg tablet 10 mg PO BEDTIME #90 tabs 06/23/21 ferrous sulfate 325 mg (65 mg 325 mg PO DAILY #90 caps 07/25/21 iron) tablet omeprazole 20 mg capsule,delayed 40 mg PO BID #180 caps 08/04/21 release ascorbic acid (vitamin C) 500 mg 500 mg PO DAILY #90 caps 11/10/21 tablet (Vitamin C) dicyclomine 20 mg tablet 40 mg PO QID abdominal pain #240 12/09/21 tabs peg 3350-electrolytes 236 240 ml PO Q10M 1 day #4,000 mL 01/20/22 gram-22.74 gram-6.74 gram-5.86 gram solution (Golytely) sennosides 8.6 mg capsule (senna) 34.4 mg PO BEDTIME #120 caps 01/20/22 meloxicam 7.5 mg tablet 7.5 mg PO DAILY #30 tabs 02/08/22 promethazine 25 mg tablet 25 mg PO .qac supper PRN nausea 02/10/22 and vomiting #30 tabs Allergies Allergy/AdvReac Type Severity Reaction Status Date / Time No Known Allergies Allergy Verified 03/01/22 12:35 [No Known Allergies*] Review of Systems Review of Systems: Yes all other systems are reviewed and are negative Constitutional: Constitutional: Reports no additional constitutional complaints, Denies body ache(s), Denies chills, Denies fever(s), Denies headache(s) and Denies weakness Eyes: Eyes: Reports no additional eye complaints and Denies change in vision ENT: Reports system reviewed and no additional complaints, except as documented, Denies dizziness, Denies headache(s), Denies nasal congestion, Denies nasal discharge and Denies neck pain Cardiovascular: Cardiovascular: Reports no additional cardiovascular complaints, Denies chest pain, Denies leg edema and Denies dyspnea Respiratory: Respiratory: Reports no additional respiratory complaints, Reports cough and Denies dyspnea Gastrointestinal: Gastrointestinal: Reports no additional gastrointestinal complaints, Reports abdominal pain, Reports diarrhea, Reports nausea and Reports vomiting Genitourinary: Genitourinary: Reports no additional female genitourinary complaints and Denies urinary incontinence Musculoskeletal: Musculoskeletal: Reports no additional musculoskeletal complaints, Denies back pain, Denies arthralgias, Denies joint swelling, Denies neck pain, Denies numbness and Denies tingling Integumentary/Breasts: Skin/Breast: Reports system reviewed and no additional complaints, except as docu and Denies rash Neurologic: Reports system reviewed and no additional complaints, except as documented, Denies Abnormal speech present, Denies dizziness, Denies headache(s), Denies numbness, Denies tingling and Denies weakness PMFSH Past Medical History Attestation statement: The following information was validated with the patient. Source: old records reviewed and nursing notes reviewed Medical History Abdominal cramping Cervical radiculopathy Constipation Diarrhea Esophageal dysmotility GERD (gastroesophageal reflux disease) History of colon polyps (~2015) HTN (hypertension) Hx of hemorrhoids Hypercholesterolemia Hypersomnolence Impaired glucose tolerance Insomnia Intestinal malabsorption following gastrectomy Nausea Nausea and vomiting Neck pain Obesity (BMI 30-39.9) Polyarthralgia Polymyalgia PTSD (post-traumatic stress disorder) Rectal spasm Shoulder pain, right Snoring Vitamin D deficiency Surgical History History of bilateral breast reduction surgery (~2011) History of History of carpal tunnel release (~2001) History of colonoscopy (~2015) History of colposcopy (~1991) History of esophagogastroduodenoscopy (EGD) (~2020) History of excision of mass (~2016) History of laparoscopic adjustable gastric banding (~2010) History of neck surgery History of sleeve gastrectomy (~2016) History of tubal ligation (~2000) Hx of abdominoplasty Status post panniculectomy (~2013) Family History Family History Father Diabetes Mother High blood pressure High cholesterol Dementia Daughter Healthy female Son No problems noted. Son High blood pressure High cholesterol Other Mental health disorder Social History Social History Household Members: Children Housing: House Alcohol intake: never Patient Tobacco Use Status: Former Tobacco user Tobacco use type: Cigarette Years Smoked: stopped 1989 e-Cigarette/Vaping Use: Never Used Second Hand Smoke Exposure: No Advance Directives: No Advance Directives Information Provided: No service: No Current occupational status: disabled Cognitive needs: Yes (cane) Hearing needs: No Vision needs: Yes (glasses) Physical Exam Vital Signs: Vital Signs: Last Vital Signs Temp 97.4 F 03/01/22 12:32 Pulse 83 03/01/22 12:32 Resp 16 03/01/22 12:32 BP 152/87 H 03/01/22 12:32 Pulse Ox 100 03/01/22 12:32 O2 Del Method 03/01/22 12:32 BMI result Body Mass Index 28.3 Const: General: cooperative, healthy appearing, comfortable and no acute distress Orientation/consciousness: patient oriented x3 Limitations: no limitations HEENT: Head: Yes normal to inspection Ears: hearing grossly normal bilaterally General nose exam: Normal external nose present Face and sinus: Yes normal facial exam Mouth: Normal oral and palatal mucosa present Throat: Yes posterior oropharynx normal Eyes: General: appearance normal, both eyes and all related structures Pupils: Equal, round and reactive pupils present Neck: Neck: Yes normal visual inspection Chest: Chest palpation & inspection: normal inspection of the chest Resp: Effort & Inspection: normal respiratory effort Auscultation: clear to auscultation bilaterally Cardio: Rate: regular rate Rhythm: regular rhythm Peripheral pulses: Peripheral pulses 2+ throughout GI: Inspection: Yes normal to inspection Palpation (GI): Soft to palpation and Tenderness to palpation present (GI) (diffusely tender ) Auscultation: normal bowel sounds Back/Spine/Pelvis: Thoracic/Lumbar Spine: thoracic and lumbar spine normal to inspection Skin: General skin exam: no rashes or lesions noted Neuro: General: patient oriented x3, no focal motor deficits and normal sensation to monofilament Cranial nerves: Yes Equal, round and reactive pupils present Cognition (Neuro): normal cognition Speech: No Abnormal speech present Gait exam (Neuro): Normal gait present Motor exam (neuro): 5/5 motor strength present throughout Extrem: General: Yes normal to inspection, Yes no pedal edema and Yes no calf tenderness Course Course Course Narrative: CT abdomen/pelvis shows no acute finding. Labs are unremarkable. UA negative . Covid screen positive. NO hypoxia or tachypnea. LS CTA. Reviewed quarantine for home. Reviewed worrisome signs/symptoms with patient and when to seek additional care. Comfortable with discharge home. Reevaluation(s) Reevaluation #1: Did discuss Paxlovid and patient declined Medications Administered Discontinued Medications Generic Name Dose Route Start Last Admin Trade Name Freq PRN Reason Stop Dose Admin Iohexol 100 ml 03/01/22 19:13 03/01/22 19:14 Iohexol 350 Mg/Ml 100 Ml Infus..Btl IV 03/01/22 19:14 85 ml ONCE ONE Administration MDM - Nausea/Vomiting/Diarrhea MDM Narrative Medical decision making narrative: 56 yo female here with several days of vomiting, diarrhea, abdominal cramping, cough. Abdomen diffusely tender with h/o abdominal surgeriers. Will check CT A/P, obtain labs, UA, COVID screen, PO trial Consider viral syndrome, SBO, appendicitis Low concern for PE with PERC 0 Medical Records Attestation: I reviewed the patient's medical records. Lab Data Attestation: I reviewed the patient's lab results. Result diagrams: 03/01/22 14:13 03/01/22 14:13 Labs: Lab Results 03/01/22 03/01/22 03/01/22 Range/Units 12:37 14:13 14:13 WBC 7.0 (4.8-10.8) X10*3/uL RBC 4.09 L (4.20-5.50) X10*6/uL Hgb 11.9 L (12.0-16.0) g/dl Hct 36.3 L (37.0-47.0) % MCV 88.8 (80.0-98.0) fL MCH 29.1 (27.0-33.0) pg MCHC 32.8 (31.0-35.0) g/dl RDW 13.4 (11.0-16.0) % Plt Count 264 (160-400) X10*3/uL MPV 8.8 L (9.4-12.3) fL Immature Gran % (Auto) 0.1 (0.0-0.4) % Neut % (Auto) 60.4 (45-73) % Lymph % (Auto) 30.0 (20-40) % Ell[place] % (Auto) 7.4 (2-11) % Eos % (Auto) 1.7 (0-4) % Baso % (Auto) 0.4 (0-2) % Lymph # (Auto) 2.1 (1.2-4.9) X10*3/uL [place] # (Auto) 0.5 (0.1-1.2) X10*3/uL Eos # (Auto) 0.1 (0.0-0.4) X10*3/uL Baso # (Auto) 0.0 (0.0-0.2) X10*3/uL Abs Immat Gran (auto) 0.01 (0.00-0.03) X10*3/uL Absolute Neuts (auto) 4.2 (2.0-8.3) x10*3/uL Absolute Nucleated RBC 0.000 (0.0-0.012) X10*3/uL Nucleated RBC % (auto) 0.0 (0.0-0.2) /100WBC PT 10.5 (10.0-13.1) SEC INR 0.9 (0.9-1.1) APTT 32.9 (26.0-36.4) SEC Sodium (135-145) mmol/L Potassium (3.3-5.1) mmol/L Chloride (96-108) mmol/L Carbon Dioxide (22-29) mmol/L Anion Gap (12-20) BUN (9-16) mg/dL Creatinine (0.5-1.4) mg/dL Estim Creat Clear Calc Estimated GFR Random Glucose (60-115) mg/dL Calcium (8.4-10.2) mg/dL Total Bilirubin (0.0-1.0) mg/dL AST (5-31) U/L ALT (0-31) U/L Alkaline Phosphatase (39-117) U/L Troponin I High Sens (<3.5-17.0) ng/L B-Natriuretic Peptide (<100) pg/mL Total Protein (6.5-8.0) g/dL Albumin (3.5-5.0) g/dL Influenza Type A (PCR) NEGATIVE (Negative) Influenza Type B (PCR) NEGATIVE (Negative) RSV RNA Qual (PCR) NEGATIVE (Negative) SARS-CoV-2 RNA (RT-PCR) POSITIVE A (Negative) 03/01/22 03/01/22 03/01/22 Range/Units 14:13 14:13 14:13 WBC (4.8-10.8) X10*3/uL RBC (4.20-5.50) X10*6/uL Hgb (12.0-16.0) g/dl Hct (37.0-47.0) % MCV (80.0-98.0) fL MCH (27.0-33.0) pg MCHC (31.0-35.0) g/dl RDW (11.0-16.0) % Plt Count (160-400) X10*3/uL MPV (9.4-12.3) fL Immature Gran % (Auto) (0.0-0.4) % Neut % (Auto) (45-73) % Lymph % (Auto) (20-40) % Ellsworth % (Auto) (2-11) % Eos % (Auto) (0-4) % Baso % (Auto) (0-2) % Lymph # (Auto) (1.2-4.9) X10*3/uL Ellsworth # (Auto) (0.1-1.2) X10*3/uL Eos # (Auto) (0.0-0.4) X10*3/uL Baso # (Auto) (0.0-0.2) X10*3/uL Abs Immat Gran (auto) (0.00-0.03) X10*3/uL Absolute Neuts (auto) (2.0-8.3) x10*3/uL Absolute Nucleated RBC (0.0-0.012) X10*3/uL Nucleated RBC % (auto) (0.0-0.2) /100WBC PT (10.0-13.1) SEC INR (0.9-1.1) APTT (26.0-36.4) SEC Sodium 143 (135-145) mmol/L Potassium 4.7 (3.3-5.1) mmol/L Chloride 105 (96-108) mmol/L Carbon Dioxide 29 (22-29) mmol/L Anion Gap 14 (12-20) BUN 14 (9-16) mg/dL Creatinine 0.89 (0.5-1.4) mg/dL Estim Creat Clear Calc 64.0 Estimated GFR > 60 Random Glucose 93 (60-115) mg/dL Calcium 9.9 D (8.4-10.2) mg/dL Total Bilirubin 0.4 (0.0-1.0) mg/dL AST 25 (5-31) U/L ALT 24 (0-31) U/L Alkaline Phosphatase 72 (39-117) U/L Troponin I High Sens < 3.5 (<3.5-17.0) ng/L B-Natriuretic Peptide 29 (<100) pg/mL Total Protein 7.1 (6.5-8.0) g/dL Albumin 4.6 (3.5-5.0) g/dL Influenza Type A (PCR) (Negative) Influenza Type B (PCR) (Negative) RSV RNA Qual (PCR) (Negative) SARS-CoV-2 RNA (RT-PCR) (Negative) Imaging Data CT scan - abdomen: Attestation: I personally reviewed and interpreted this imaging study as follows: Radiologist's impression: FINDINGS: LUNG BASES: The visualized lung bases are unremarkable.? LIVER, GALLBLADDER, AND BILIARY TREE: The liver is normal in size, shape, and attenuation. No focal hepatic lesion or biliary ductal dilatation is present. The gallbladder is unremarkable with no evidence of radiopaque gallstones, gallbladder wall thickening, or obvious pericholecystic inflammatory changes.? PANCREAS: Unremarkable.? SPLEEN: Unremarkable.? ADRENAL GLANDS: Unremarkable.? KIDNEYS AND URETERS: The kidneys are normal in size, shape, and attenuation. Only one of the previously seen 2 small punctate nonobstructing calculi present at the lower pole of the right kidney are seen on the current study. No ureteral calculi. No hydronephrosis or hydroureter? seen. No perinephric stranding. ? BLADDER: Unremarkable.? GASTROINTESTINAL TRACT: A small hiatal hernia is again seen. The patient has undergone a gastric sleeve. The rectum and the descending colon are completely collapsed similar in appearance to prior. The appendix is unremarkable.? ABDOMINAL WALL: No significant hernia is appreciated. There is been prior abdominal wall surgery. LYMPH NODES: No retroperitoneal lymphadenopathy. VASCULAR: Unremarkable. PELVIC VISCERA: The uterus and adnexa are unremarkable.? OSSEOUS STRUCTURES: Unremarkable.? CT/CT abdomen pelvis w IV con IMPRESSION: 1.? A definite cause for the patient's right-sided abdominal pain has not been found. Previously 2 stones were noted in the right kidney but there is now only 1. Perhaps the patient passed a stone which is no longer seen and not even in the bladder. 2.? Other findings include prior gastric sleeve with prior hernia. Chest x-ray: Attestation: I personally reviewed and interpreted this imaging study as follows: Radiologist's impression: [address] [address] XRay Report Signed Patient: Hannah Snell MR#: [id number] : 1965 Acct:[id number] Age/Sex: 56 / F ADM Date: 03/01/22 Loc: HO.ED Attending Dr: Ordering Physician: Tad Rodrigues Date of Service: 03/01/22 Procedure(s): XR chest 1V Accession Number(s): [id number] cc: Tad Rodrigues~ EXAMINATION: XR CHEST CLINICAL INFORMATION: Cough and chest pain COMPARISON: None TECHNIQUE: Frontal view of the chest was obtained. FINDINGS: No significant abnormality is noted involving the heart, lungs, mediastinum, bony thorax or soft tissues. XR/XR chest 1V IMPRESSION: No acute pulmonary disease. ? ECG Data Attestation: I personally reviewed and interpreted this ECG as follows: ECG interpretation date: 03/01/22 ECG interpretation time: 14:04 Interpretation: NSR with rate 75, normal pr, normal qrs, normal qt Discharge Plan Discharge Clinical Impression: COVID-19 Patient Disposition: Home, Self-Care Instructions: COVID-19 (Coronavirus Disease 2019) (ED) Additional Instructions: Quarantine for 5 days Motrin or tylenol for pain or fever as needed Increase fluids, rest We discussed Paxlovid the treatment available for COVID and you declined this Prescriptions: No Action lisinopril-hydrochlorothiazide 20-25 mg tablet 1 tab PO DAILY Qty: 90 2RF simvastatin 10 mg tablet 10 mg PO BEDTIME Qty: 90 2RF ferrous sulfate 325 mg (65 mg iron) tablet 325 mg PO DAILY Qty: 90 3RF ascorbic acid (vitamin C) [Vitamin C] 500 mg tablet 500 mg PO DAILY Qty: 90 3RF meloxicam 7.5 mg tablet 7.5 mg PO DAILY Qty: 30 0RF clonazepam 0.5 mg Tablet 0.5 mg PO DAILY PRN (Reason: Anxiety) fluoxetine [Prozac] 20 mg Capsule 40 mg PO DAILY Rx Instructions: Take 2 tabs PO Daily cixocppkuhzi-rvwoguux-pcjpmm Tablet 1 tab PO DAILY prazosin 1 mg capsule 2 mg PO BEDTIME ziprasidone HCl 20 mg capsule 20 mg PO BEDTIME bupropion HCl 150 mg tablet extended release 24 hr 300 mg PO QAM calcium carbonate [Calcium 500] 500 mg calcium (1,250 mg) tablet,chewable 500 mg PO DAILY promethazine 25 mg tablet 25 mg PO .qac supper PRN (Reason: nausea and vomiting) Qty: 30 3RF senna 8.6 mg capsule 34.4 mg PO BEDTIME Qty: 120 3RF peg 3350-electrolytes [Golytely] 236-22.74-6.74 -5.86 gram recon soln 240 ml PO Q10M 1 Days Qty: 4000 0RF Rx Instructions: until fecal effluent is clear; do not exceed a total volume of 2,000 mL omeprazole 20 mg capsule,delayed release(DR/EC) 40 mg PO BID Qty: 180 1RF cholecalciferol (vitamin D3) 125 mcg (5,000 unit) capsule 125 mcg PO DAILY dicyclomine 20 mg tablet 40 mg PO QID Qty: 240 3RF acetaminophen [Tylenol Extra Strength] 500 mg tablet 1,000 mg PO Q6H PRN Referrals: Po,Demi Rendon MD [Primary Care Provider] - 5 days Interventions: ED Discharge Assessment Last Done: 03/01/22 19:55 Discharge Date/Time: 03/01/22 19:55
== END 2022-03-01 19:55 | disposition home or self-care (01) ==
PROVIDERS: Physician Assistant; Emergency Provider Emergency Medicine; PCP Internal Medicine
DX: U07.1 COVID-19 (principal); R11.2 Nausea with vomiting, unspecified; R19.7 Diarrhea, unspecified; R07.89 Other chest pain; R06.02 Shortness of breath; Z98.84 Bariatric surgery status; Z79.899 Other long term (current) drug therapy; Z87.891 Personal history of nicotine dependence
CPT/HCPCS: 0241U; 36415; 71045; 74177; 80053; 83880; 84484; 85025; 85610; 85730; 93005; 99284; Q9967

== ENCOUNTER → 2022-03-21 10:16 | Outpatient (BNVA) | payer OTHER, SELFPAY | PROVIDERS: PCP Internal Medicine; Visit Provider Nurse Practitioner | DX: K58.9 Irritable bowel syndrome, unspecified (principal); K21.9 Gastro-esophageal reflux disease without esophagitis; K59.00 Constipation, unspecified; R13.10 Dysphagia, unspecified; R11.2 Nausea with vomiting, unspecified | CPT/HCPCS: 99212 ==

== ENCOUNTER 2022-04-06 12:23 | Outpatient (REF) | payer OTHER, SELFPAY ==
--- NOTE | ~2022-04-06 | CT_ITS ---
EXAMINATION: CT ABDOMEN AND PELVIS WITH CONTRAST CLINICAL INFORMATION: Nausea with vomiting. COMPARISON: 03/01/2022 TECHNIQUE: Multidetector volumetric images were obtained from the superior aspect of the liver through the pubic symphysis following administration 85 mL of Omnipaque 350 intravenous contrast. Sagittal and coronal reformatted images were obtained on the technologist's workstation. Oral contrast: Yes This CT examination was performed using dose optimization techniques as appropriate, variously including the following: *Automated exposure control *Adjustment of mA and/or kV according to patient size (this includes techniques or standardized protocols for targeted exams where dose is matched to indication/reason for exam; i.e. extremities or head) *Use of iterative reconstruction technique DLP: 324 mGy-cm FINDINGS: LUNG BASES: The visualized lung bases are unremarkable. LIVER, GALLBLADDER, AND BILIARY TREE: The liver is normal in size, shape, and attenuation. No focal hepatic lesion or biliary ductal dilatation is present. The gallbladder is unremarkable with no evidence of radiopaque gallstones, gallbladder wall thickening, or obvious pericholecystic inflammatory changes. PANCREAS: Unremarkable. SPLEEN: Unchanged 7 mm hypodense lesion in the medial spleen, nonspecific but with a nonaggressive appearance. ADRENAL GLANDS: Unremarkable. KIDNEYS AND URETERS: 3 mm right lower pole nonobstructing calculus. No hydronephrosis or hydroureter. Symmetric bilateral renal enhancement. BLADDER: Unremarkable. GASTROINTESTINAL TRACT: Small hiatal hernia. Postoperative changes of the stomach consistent with prior sleeve gastrectomy. Small bowel nondilated. Oral contrast seen distally to the colon. Normal appendix. Scattered diverticulosis. No colitis or diverticulitis. ABDOMINAL WALL: Several small midline fascial defects are present. Likely postoperative changes extending to the right of midline in the supraumbilical abdomen. Fat in the right inguinal canal. LYMPH NODES: Normal. VASCULAR: Unremarkable. PELVIC VISCERA: Unremarkable. OSSEOUS STRUCTURES: Unremarkable. CT/CT abdomen pelvis w IV con IMPRESSION: No acute CT findings. Small hiatal hernia and postoperative changes consistent with prior sleeve gastrectomy. No evidence of leak or obstruction. Fleischner guidelines were followed.
[2022-04-06] MEDS: iohexoL 350 MG/ML 100 ML INFUS..BTL 85 ML IV (15:17)
[2022-04-06] MEDS: Barium Sulfate Oral (Mocha) 450 ML ORAL.SUSP 900 ML PO (15:18)
== END 2022-04-06 12:24 | disposition home or self-care (01) ==
LOC: HO.CT 12:23
PROVIDERS: PCP Internal Medicine; Visit Provider Nurse Practitioner Family
DX: K62.89 Other specified diseases of anus and rectum (principal); R11.2 Nausea with vomiting, unspecified
CPT/HCPCS: 74177; Q9967

== ENCOUNTER 2022-04-08 08:22 | Outpatient (REF) | payer OTHER, SELFPAY ==
[2022-04-08 08:35] LABS: MANUAL DIFF FLAG NO
[2022-04-08 08:59] LABS: Basophils Percent Auto 0.7 % (0-2); Eosinophils Absolute Auto 0.1 X10*3/uL (0.0-0.4); Hematocrit 36.2 % (37.0-47.0); Hemoglobin 11.9 g/dl (12.0-16.0); Imm Gran Abs Auto 0.01 X10*3/uL (0.00-0.03); Imm Gran Pct Auto 0.2 % (0.0-0.4); Lymphocytes Percent Auto 33.2 % (20-40); Mean Corpuscular HGB Conc 32.9 g/dl (31.0-35.0); Mean Corpuscular Hemoglobin 29.2 pg (27.0-33.0); Mean Corpuscular Volume 88.7 fL (80.0-98.0); Mean Platelet Volume 8.8 fL (9.4-12.3); Monocytes Absolute Auto 0.6 X10*3/uL (0.1-1.2); Monocytes Percent Auto 9.1 % (2-11); Neutrophils Absolute Auto 3.4 x10*3/uL (2.0-8.3); Neutrophils Percent Auto 55.8 % (45-73); Platelet Count 305 X10*3/uL (160-400); Red Blood Count 4.08 X10*6/uL (4.20-5.50); Red Cell Distribution Width 12.4 % (11.0-16.0); White Blood Count 6.1 X10*3/uL (4.8-10.8)
[2022-04-08 09:14] LABS: Estimated Average Glucose 103 mg/dL; Hemoglobin A1c % 5.2 %
[2022-04-08 09:47] LABS: Alanine Aminotransferase 25 U/L (0-31); Albumin Level 4.5 g/dL (3.5-5.0); Alkaline Phosphatase 69 U/L (39-117); Anion Gap 13 (12-20); Aspartate Amino Transferase 24 U/L (5-31); Bilirubin Total 0.4 mg/dL (0.0-1.0); Blood Urea Nitrogen 17 mg/dL (9-16); Calcium 9.9 mg/dL (8.4-10.2); Carbon Dioxide 30 mmol/L (22-29); Chloride 103 mmol/L (96-108); Cholesterol 215 mg/dL; Estimated Glomerular Filt Rate 51; Free T4 (Free Thyroxine) 0.91 ng/dL (0.71-1.85); Glucose Random 85 mg/dL (60-115); HDL Cholesterol 65 mg/dL; LDL Cholesterol Calculated 111 mg/dl; Potassium 4.3 mmol/L (3.3-5.1); Sodium 142 mmol/L (135-145); Thyroid Stimulating Hormone 1.78 uIU/mL (0.32-4.0); Total Protein 6.8 g/dL (6.5-8.0); Triglycerides 198 mg/dL; Vitamin D 25-OH Total 86.3 ng/mL (>30)
[2022-04-08 09:57] LABS: Folate 15.8 ng/mL (> or = 4.0); Vitamin B12 807 pg/mL (200-900)
== END 2022-04-08 08:23 | disposition home or self-care (01) ==
LOC: HO.LAB 08:22
PROVIDERS: PCP Internal Medicine; Visit Provider Internal Medicine
DX: E78.00 Pure hypercholesterolemia, unspecified (principal); R73.02 Impaired glucose tolerance (oral)
CPT/HCPCS: 36415; 80053; 80061; 82306; 82607; 82746; 83036; 84439; 84443; 85025

== ENCOUNTER 2022-04-18 13:04 | Day surgery (SDC) | payer OTHER, SELFPAY ==
[2022-04-12 11:43] VITALS: BMI 29.3
--- NOTE | 2022-04-14 13:26 | HO.ANESPROP2 ---
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 (Acute) Overweight (Acute) Abscess of finger of left hand (Acute) Legally blind (Acute) HTN (hypertension) (Acute) Hypercholesterolemia (Acute) Impaired glucose tolerance (Acute) Anemia (Acute) Incarcerated hiatal hernia (Acute) Achalasia (Acute) Dysphagia (Acute) GERD (gastroesophageal reflux disease) (Acute) Intestinal malabsorption following gastrectomy (Acute) S/P laparoscopic sleeve gastrectomy (Acute ~2017) Family history of polyps in the colon (Acute) Snoring (Acute) Hypersomnolence (Acute) PTSD (post-traumatic stress disorder) (Acute) Generalized anxiety disorder (Acute) Fibromyalgia (Acute) Plantar fasciitis of left foot (Acute) Urge incontinence (Acute) Past Medical History Medical History Abdominal cramping Cervical radiculopathy Constipation Diarrhea Esophageal dysmotility GERD (gastroesophageal reflux disease) History of colon polyps (~2015) HTN (hypertension) Hx of hemorrhoids Hypercholesterolemia Hypersomnolence Impaired glucose tolerance Insomnia Intestinal malabsorption following gastrectomy Nausea Nausea and vomiting Neck pain Obesity (BMI 30-39.9) Polyarthralgia Polymyalgia PTSD (post-traumatic stress disorder) Rectal spasm Shoulder pain, right Snoring Vitamin D deficiency Family History Family History Father Diabetes Mother High blood pressure High cholesterol Dementia Daughter Healthy female Son No problems noted. Son High blood pressure High cholesterol Other Mental health disorder Family history of problems with anesthesia: No Surgical History Surgical History History of bilateral breast reduction surgery (~2011) History of History of carpal tunnel release (~2001) History of colonoscopy (~2015) History of colposcopy (~1991) History of esophagogastroduodenoscopy (EGD) (~2020) History of excision of mass (~2016) History of laparoscopic adjustable gastric banding (~2010) History of neck surgery History of sleeve gastrectomy (~2016) History of tubal ligation (~2000) Hx of abdominoplasty Status post panniculectomy (~2013) History of Problems with Anesthesia: No Social History Social History Household Members: Children Housing: House Are you a primary career guidance counselor to a significant other at home: No Do you presently have visiting nurse or other home services: Yes ([employer]) Alcohol intake: never Patient Tobacco Use Status: Never used Tobacco Tobacco use type: Cigarette Years Smoked: stopped 1989 e-Cigarette/Vaping Use: Never Used Second Hand Smoke Exposure: No Use of substances other than those prescribed or required for medical reasons: No Have you been hit, kicked, punched, or otherwise hurt by someone within the past year? If so, by whom?: No Are you DNR?: No Advance Directives: No Advance Directives Information Provided: Yes Advance Directives on File: No Recently lost weight without trying: Yes Patient : No service: No Current occupational status: disabled Cognitive needs: Yes (cane) Hearing needs: No Vision needs: Yes (glasses) Meds Allergies Allergy/AdvReac Type Severity Reaction Status Date / Time No Known Allergies Allergy Verified 03/21/22 10:27 [No Known Allergies*] Home Medications Medication Instructions Recorded Confirmed Last Taken Type bupropion HCl 150 mg 24 hr tablet, 300 mg PO QAM 03/05/20 04/11/22 04/18/22 History extended release clonazepam 0.5 mg tablet 0.5 mg PO DAILY PRN Anxiety 06/08/20 04/11/22 03/09/21 History fluoxetine 20 mg capsule (Prozac) 40 mg PO DAILY 06/08/20 04/11/22 04/18/22 History puofpoizvyuu-vnjxuked-vactks tablet 1 tab PO DAILY 06/08/20 04/11/22 03/09/21 History calcium carbonate 500 mg calcium 500 mg PO DAILY 0404/11/22 03/09/21 History (1,250 mg) chewable tablet (Calcium 500) prazosin 1 mg capsule 2 mg PO BEDTIME 12/22/20 04/11/22 03/08/21 History ziprasidone HCl 20 mg capsule 20 mg PO BEDTIME 08/09/21 04/11/22 Unknown History cholecalciferol (vitamin D3) 125 125 mcg PO DAILY 12/09/21 04/11/22 Unknown History mcg (5,000 unit) capsule acetaminophen 500 mg tablet 1,000 mg PO Q6H PRN Pain, Mild 12/23/21 04/11/22 Unknown History (Tylenol Extra Strength) simethicone 180 mg capsule 180 mg PO BID 03/21/22 04/11/22 Unknown History Exam Exam Date and Time: April 14, 2022 1326 Height,Weight and Vital Signs: Height 5 ft 2 in Weight 72.8 kg Pertinent Lab Results Pertinent Lab Results: Laboratory Tests 04/08/22 04/08/22 08:32 08:32 WBC 6.1 Hgb 11.9 L Hct 36.2 L Plt Count 305 Sodium 142 Potassium 4.3 Chloride 103 Carbon Dioxide 30 H BUN 17 H Creatinine 1.10 Narrative Narrative: EKG 2021 Vent. Rate : 075 BPM ? ? Atrial Rate : 075 BPM ?? P-R Int : 136 ms? QRS Dur : 080 ms ? ? QT Int : 384 ms ? ? ? P-R-T Axes : 040 -11 043 degrees ?? QTc Int : 428 ms ? Normal sinus rhythm Nonspecific T wave abnormality Abnormal ECG When compared with ECG of 14-MAR-2021 17:18, No significant change was found Assessment and Plan Assessment Anesthesia Assessment: Chart Reviewed Final Anesthetic Review Family History of Problems with Anesthesia: No History of Problems with Anesthesia: No Documented by User: Humberto Dunbar MD 04/18/22 13:48 [facility] Past Medical History Medical History Abdominal cramping Cervical radiculopathy Constipation Diarrhea Esophageal dysmotility GERD (gastroesophageal reflux disease) History of colon polyps (~2015) HTN (hypertension) Hx of hemorrhoids Hypercholesterolemia Hypersomnolence Impaired glucose tolerance Insomnia Intestinal malabsorption following gastrectomy Nausea Nausea and vomiting Neck pain Obesity (BMI 30-39.9) Polyarthralgia Polymyalgia PTSD (post-traumatic stress disorder) Rectal spasm Shoulder pain, right Snoring Vitamin D deficiency Family History Family History Father Diabetes Mother High blood pressure High cholesterol Dementia Daughter Healthy female Son No problems noted. Son High blood pressure High cholesterol Other Mental health disorder Surgical History Surgical History History of bilateral breast reduction surgery (~2011) History of History of carpal tunnel release (~2001) History of colonoscopy (~2015) History of colposcopy (~1991) History of esophagogastroduodenoscopy (EGD) (~2020) History of excision of mass (~2016) History of laparoscopic adjustable gastric banding (~2010) History of neck surgery History of sleeve gastrectomy (~2016) History of tubal ligation (~2000) Hx of abdominoplasty Status post panniculectomy (~2013) Social History Social History Household Members: Children Housing: House Are you a primary career guidance counselor to a significant other at home: No Do you presently have visiting nurse or other home services: Yes ([employer]) Alcohol intake: never Patient Tobacco Use Status: Never used Tobacco Tobacco use type: Cigarette Years Smoked: stopped 1989 e-Cigarette/Vaping Use: Never Used Second Hand Smoke Exposure: No Use of substances other than those prescribed or required for medical reasons: No Have you been hit, kicked, punched, or otherwise hurt by someone within the past year? If so, by whom?: No Are you DNR?: No Advance Directives: No Advance Directives Information Provided: Yes Advance Directives on File: No Recently lost weight without trying: Yes Patient : No service: No Current occupational status: disabled Cognitive needs: Yes (cane) Hearing needs: No Vision needs: Yes (glasses) Meds Allergies Allergy/AdvReac Type Severity Reaction Status Date / Time No Known Allergies Allergy Verified 03/21/22 10:27 [No Known Allergies*] Home Medications Medication Instructions Recorded Confirmed Last Taken Type bupropion HCl 150 mg 24 hr tablet, 300 mg PO QAM 03/05/20 04/11/22 04/18/22 History extended release clonazepam 0.5 mg tablet 0.5 mg PO DAILY PRN Anxiety 06/08/20 04/11/22 03/09/21 History fluoxetine 20 mg capsule (Prozac) 40 mg PO DAILY 06/08/20 04/11/22 04/18/22 History bwwsnbicpryw-vkzybhyf-xniyyc tablet 1 tab PO DAILY 06/08/20 04/11/22 03/09/21 History calcium carbonate 500 mg calcium 500 mg PO DAILY 08/11/20 04/11/22 03/09/21 History (1,250 mg) chewable tablet (Calcium 500) prazosin 1 mg capsule 2 mg PO BEDTIME 12/22/20 04/11/22 03/08/21 History ziprasidone HCl 20 mg capsule 20 mg PO BEDTIME 08/09/21 04/11/22 Unknown History cholecalciferol (vitamin D3) 125 125 mcg PO DAILY 12/09/21 04/11/22 Unknown History mcg (5,000 unit) capsule acetaminophen 500 mg tablet 1,000 mg PO Q6H PRN Pain, Mild 12/23/21 04/11/22 Unknown History (Tylenol Extra Strength) simethicone 180 mg capsule 180 mg PO BID 03/21/22 04/11/22 Unknown History Exam Airway Mallampati Class: III TM Dist: >3cm Neck ROM: Full Assessment and Plan Assessment Anesthesia Assessment: Anesthesia Plan Discussed Final Anesthetic Review NPO: Yes ASA Class: III Final Preanesthetic Review: No Changes in Pt Med Stat, Meds/Allgs Chart Reviewed, Consent Obtained/Reviewed and Anes Risks/Benef Reviewed Patient Risk: Intermediate Procedure Risk: Low Anesthetic Plan Anesthetic Plan: MAC: Disposition: Standard PACU
[2022-04-18 13:19] VITALS: BP 180/111; PULSE 84; RESP 16; TEMP 36.3; O2SAT 100
--- NOTE | 2022-04-18 13:37 | MHC.SHP ---
Pre-Procedural Eval Section A Date of Service: 04/18/22 The patient is an INPATIENT: No Changes since office visit: Yes Patient answered all questions; No Cold of Flu in the past 2 weeks, No New Medical Problems and No Changes in Medication The History & Physical has been completed within 30 days and I have reviewed it.: Yes Section B Chief Complaint: Family history of colonic polyps Allergies: Allergies Allergy/AdvReac Type Severity Reaction Status Date / Time No Known Allergies Allergy Verified 03/21/22 10:27 [No Known Allergies*] Plan I have reviewed the history and physical and performed a pertinent physical examination on my patient. No changes have occurred unless specified. Time Spent With Patient Time: Total time managing care of this patient today ____ minutes.
--- NOTE | 2022-04-18 13:39 | PM.OP ---
Brief Operative Note Date of Service: 04/18/22 Pre-op diagnosis: abd pain that moves around, tenesmus, proctalgia and bloating. Post-op diagnosis: other ( DIVERTICULOSIS, HEMORRHOIDS, MELANOSIS COLI) Procedure: COLONOSCOPY TO CECUM WITH BIOPSIES Surgeon: Tawanda Alexandra MD Anesthesia: MAC Was an Insurance Sales Executive used for this Procedure?: Yes Insurance Sales Executive: Mimi Trevino Estimated blood loss (mL): 0 Pathology: other (A. right colon bxs, R/O melanosis coli B. random left colon bxs, R/O microscopic colitis) Condition: stable Disposition: PACU
--- NOTE | 2022-04-18 13:39 | W.PM.OPN ---
Operative Note Operative Note Date of Service: 04/18/22 Narrative: Pre-op diagnosis: abd pain that moves around, tenesmus, proctalgia and bloating. Family hx of colon polyps (Dad in his 60's) Post-op diagnosis:?other ( DIVERTICULOSIS, HEMORRHOIDS, MELANOSIS COLI) Surgeon: Tawanda Alexandra MD Anesthesia:?MAC COLONOSCOPY TILL CECUM WITH BIOPSIES Consent: Indications for the procedure and potential complications of bleeding, perforation, reaction to medications and missed diagnosis were discussed with the patient and informed consent was obtained. Instrument: Olympus PCF H 190 L variable stiffness pediatric colonoscope Monitoring: Vital signs and clinical assessment, intermittent blood pressure monitoring, continuous EKG monitoring, Pulse oximetry and Carbon Dioxide monitoring were done throughout the procedure. Colon withdrawl time was 25 minutes. Procedure: The patient was placed in the left lateral decubitis position and pre-procedure medications were administered. After a digital rectal examination of the ano-rectum, the video colonoscope was inserted into the rectum and advanced through the colon to the cecum. The colonoscope was slowly withdrawn in a retrograde panoramic fashion and the colon mucosa was carefully examined including a retroflexed view of the rectum. Findings and interventions are described below. Procedure Difficulty: Without difficulty Findings: Terminal Ileum: Not evaluated Cecum: Mild melanosis coli in the right colon - random biopsies were obtained Ascending Colon: Mild melanosis coli in the right colon - random biopsies were obtained Transverse Colon: Normal Descending Colon: Normal Sigmoid Colon: Moderate diverticulosis Rectum: Normal Ano-rectum: Moderate internal hemorrhoids Colon preparation: Good after copious irrigation Impression and Post Procedure Diagnosis: Colonoscopy Findings: No polyps were detected. Mild melanosis coli in the right colon - random biopsies were obtained Moderate diverticulosis seen in the sigmoid colon Moderate hemorrhoids on retroflexed exam. Plan: Await pathology results Patient has an appointment on 05/05/22 in the [facility] with Peri Bernal NP. Repeat Colonoscopy interval based on path results - in 5 years if colon biopsies are normal (due to positive FH of colon polyps). Add dulcolax for colon prep for future colonoscopies Above findings were reviewed with the patient and diverticulosis handout was given in the discharge area
[2022-04-18 13:49] VITALS: BP 158/103; PULSE 87
[2022-04-18] MEDS: Lactated Ringers 1,000 ML 100 ML IVCONT (13:49)
[2022-04-18 15:24] VITALS: BP 139/85; PULSE 79; RESP 16; TEMP 36.6; O2SAT 100
[2022-04-18 15:39] VITALS: BP 149/98; PULSE 76; RESP 16; TEMP 36.1; O2SAT 100
== END 2022-04-18 16:16 | disposition home or self-care (01) ==
PROVIDERS: PCP Internal Medicine; Visit Provider Internal Medicine Gastroenterology
PROC: 0DJD8ZZ Inspection of Lower Intestinal Tract, Via Natural or Artificial Opening Endoscopic (ICD-10-PCS; CPT 45378; principal; 2022-04-18 14:20)
DX: R10.84 Generalized abdominal pain (principal); Z83.71 Family history of colonic polyps; R19.8 Other specified symptoms and signs involving the digestive system and abdomen; K62.89 Other specified diseases of anus and rectum; R14.0 Abdominal distension (gaseous); K63.89 Other specified diseases of intestine; K57.30 Diverticulosis of large intestine without perforation or abscess without bleeding; K64.8 Other hemorrhoids; K58.9 Irritable bowel syndrome, unspecified; K21.9 Gastro-esophageal reflux disease without esophagitis; K22.4 Dyskinesia of esophagus; I10 Essential (primary) hypertension; E78.00 Pure hypercholesterolemia, unspecified; R73.02 Impaired glucose tolerance (oral); M35.3 Polymyalgia rheumatica; E55.9 Vitamin D deficiency, unspecified; Z98.84 Bariatric surgery status; Z87.442 Personal history of urinary calculi; Z87.891 Personal history of nicotine dependence
CPT/HCPCS: 45380; 88305

== ENCOUNTER → 2022-05-05 08:38 | Outpatient (BNVA) | payer OTHER, SELFPAY | PROVIDERS: PCP Internal Medicine; Visit Provider Nurse Practitioner | DX: K58.2 Mixed irritable bowel syndrome (principal); R13.10 Dysphagia, unspecified; K64.9 Unspecified hemorrhoids; Z83.71 Family history of colonic polyps | CPT/HCPCS: 99212 ==

== ENCOUNTER → 2022-06-13 11:08 | Outpatient (BNVA) | payer OTHER, SELFPAY | PROVIDERS: PCP Internal Medicine; Visit Provider Advanced Practice Midwife | DX: Z13.89 Encounter for screening for other disorder (principal) ==

== ENCOUNTER → 2022-06-21 07:52 | Outpatient (REF) | payer OTHER, SELFPAY ==
--- NOTE | ~2022-06-21 | NM_ITS ---
EXAMINATION: RADIONUCLIDE SOLID FOOD GASTRIC EMPTYING 4-HOUR STUDY CLINICAL INFORMATION: Nausea with vomiting, unspecified. COMPARISON: A previous gastric emptying study dated 03/16/2021 is available for comparison. TECHNIQUE: A standard meal consisting of 4 oz of Egg Beaters brand tagged was 1.0 mCi Tc-99m Sulfur Colloid, 8 oz water and 2 slices of toast with jelly was administered orally to the patient. Images were obtained using a dual head gamma camera in the anterior and posterior projections over of the stomach immediately post ingestion and at hourly intervals up to 3 hours post ingestion. Images were not obtained at 4 hours due to the minimal retention at 3 hours. The anterior and posterior counts at each time interval were averaged using the geometric mean and expressed as percentage of the immediate post ingestion counts. FINDINGS: There is good visualization of activity in the stomach immediately post ingestion. As the study progresses, there is good clearance of activity from the stomach and visualization of progressively increasing small bowel activity. By the end of the study, there is almost no retention noted in the stomach. Retention in the stomach at each time interval was: 1 hour 61% (normal 37%-90%) 2 hours 22% (normal 30%-60%) 3 hours 8% 4 hours (Not Obtained) (normal 0%-10%) Compared to the previous study dated 03/16/2021, solid food gastric emptying times are slightly lower on the current study but still well within the normal range. On the previous study patient showed retention of 28% at 1 hour and 1% at 2 hours and 3 hours. NM/NM gastric emptying study IMPRESSION: Normal solid food gastric emptying study.
== END ==
LOC: HO.NUCMED 07:52
PROVIDERS: PCP Internal Medicine; Visit Provider Nurse Practitioner
DX: R11.2 Nausea with vomiting, unspecified (principal)
CPT/HCPCS: 78264; A9541

== ENCOUNTER → 2022-07-26 10:11 | Outpatient (BNVA) | payer OTHER, SELFPAY | PROVIDERS: PCP Internal Medicine; Visit Provider Nurse Practitioner | DX: K58.9 Irritable bowel syndrome, unspecified (principal); K21.9 Gastro-esophageal reflux disease without esophagitis; R11.2 Nausea with vomiting, unspecified | CPT/HCPCS: 99212 ==

== ENCOUNTER 2022-08-15 09:44 | Outpatient (REF) | payer OTHER, SELFPAY ==
--- NOTE | ~2022-08-15 | XR_ITS ---
EXAMINATION: XR CHEST CLINICAL INFORMATION: R06.02 - Shortness of breath COMPARISON: Chest radiographs 03/01/2022, 09/23/2019 TECHNIQUE: 2 views of the chest were obtained. FINDINGS: Heart size normal. Vascularity normal. No airspace consolidation or groundglass opacity or effusion. The hilar and lateral contours are normal. No acute bony abnormality. XR/XR chest 2V IMPRESSION: Unremarkable examination.
--- NOTE | 2022-08-15 09:49 | ECG_ITS ---
Test Reason : R00.2 Palpitations Blood Pressure : / mmHG Vent. Rate : 087 BPM Atrial Rate : 087 BPM P-R Int : 130 ms QRS Dur : 086 ms QT Int : 384 ms P-R-T Axes : 041 -05 061 degrees QTc Int : 462 ms Normal sinus rhythm Normal ECG When compared with ECG of 01-MAR-2022 14:04, No significant change was found Referred By: Natasha Fung Electronically Signed By:Walker Yepez
[2022-08-15 09:58] LABS: MANUAL DIFF FLAG NO
[2022-08-15 10:29] LABS: Basophils Percent Auto 0.3 % (0-2); Eosinophils Absolute Auto 0.1 X10*3/uL (0.0-0.4); Eosinophils Percent Auto 0.9 % (0-4); Hematocrit 36.6 % (37.0-47.0); Hemoglobin 11.9 g/dl (12.0-16.0); Imm Gran Abs Auto 0.02 X10*3/uL (0.00-0.03); Imm Gran Pct Auto 0.3 % (0.0-0.4); Lymphocytes Absolute Auto 1.8 X10*3/uL (1.2-4.9); Lymphocytes Percent Auto 27.8 % (20-40); Mean Corpuscular HGB Conc 32.5 g/dl (31.0-35.0); Mean Corpuscular Hemoglobin 28.7 pg (27.0-33.0); Mean Corpuscular Volume 88.4 fL (80.0-98.0); Mean Platelet Volume 8.8 fL (9.4-12.3); Monocytes Absolute Auto 0.6 X10*3/uL (0.1-1.2); Neutrophils Absolute Auto 3.9 x10*3/uL (2.0-8.3); Neutrophils Percent Auto 60.7 % (45-73); Platelet Count 301 X10*3/uL (160-400); Red Blood Count 4.14 X10*6/uL (4.20-5.50); Red Cell Distribution Width 12.7 % (11.0-16.0); White Blood Count 6.4 X10*3/uL (4.8-10.8)
[2022-08-15 10:59] LABS: Alanine Aminotransferase 35 U/L (0-31); Albumin Level 4.5 g/dL (3.5-5.0); Alkaline Phosphatase 75 U/L (39-117); Anion Gap 12 (12-20); Aspartate Amino Transferase 27 U/L (5-31); Bilirubin Total 0.4 mg/dL (0.0-1.0); Blood Urea Nitrogen 14 mg/dL (9-16); Calcium 9.4 mg/dL (8.4-10.2); Carbon Dioxide 30 mmol/L (22-29); Chloride 105 mmol/L (96-108); Estimated Glomerular Filt Rate 54; Glucose Random 72 mg/dL (60-115); Potassium 4.2 mmol/L (3.3-5.1); Sodium 143 mmol/L (135-145); Total Protein 6.8 g/dL (6.5-8.0)
[2022-08-15 11:02] LABS: Estimated Average Glucose 111 mg/dL; Hemoglobin A1c % 5.5 %
== END 2022-08-15 09:45 | disposition home or self-care (01) ==
LOC: HO.LAB 09:44
PROVIDERS: PCP Internal Medicine; Visit Provider Nurse Practitioner Family
DX: R06.02 Shortness of breath (principal); R00.2 Palpitations; R73.02 Impaired glucose tolerance (oral); R11.2 Nausea with vomiting, unspecified; R41.3 Other amnesia
CPT/HCPCS: 36415; 71046; 80053; 83036; 85025; 93005

== ENCOUNTER 2022-08-28 13:14 | Emergency (ER) | payer OTHER, SELFPAY ==
--- NOTE | ~2022-08-28 | XR_ITS ---
EXAMINATION: XR CHEST CLINICAL INFORMATION: Pain COMPARISON: Previous chest x-ray most recent 08/15/2022 TECHNIQUE: 2 views of the chest were obtained. FINDINGS: No significant abnormality is noted involving the heart, lungs, mediastinum, bony thorax or soft tissues. XR/XR chest 2V IMPRESSION: Unremarkable examination.
[2022-08-28 13:20] VITALS: BP 185/109; PULSE 94; RESP 19; TEMP 37.1; O2SAT 100; BMI 30.5
--- NOTE | 2022-08-28 13:20 | ED.GENADULT ---
HPI - General Adult General Chief complaint: General Medical <Clay Rosas - Last Filed: 08/28/22 13:23> Stated complaint: sob difficulty breathing <Clay Rosas - Last Filed: 08/28/22 13:23> Time Seen by Provider: 08/28/22 19:03 <Clay Rosas - Last Filed: 08/28/22 13:23> Source: patient <Yonathan Lezama MD - Last Filed: 08/28/22 21:07> Mode of arrival: ambulatory <Yonathan Lezama MD - Last Filed: 08/28/22 21:07> Limitations: no limitations <Yonathan Lezama MD - Last Filed: 08/28/22 21:07> History of Present Illness HPI narrative: A 57-year-old female came in for evaluation of SOB. Patient's symptoms started about a week ago started with shortness of breath, the patient feeling anxious and palpitation with elevated blood pressure, patient declined CP, no recent travel, no lower extremity swelling or tenderness. Patient is compliant with her blood pressure meds. Patient with long history of anxiety been going through stressful events in her life, no SI or HI. <Yonathan Lezama MD - Last Filed: 08/28/22 21:07> Related Data Home medications: Home Medications Medication Instructions Recorded Confirmed bupropion HCl 150 mg 24 hr tablet, 300 mg PO QAM 03/05/20 08/15/22 extended release clonazepam 0.5 mg tablet 0.5 mg PO DAILY PRN Anxiety 06/08/20 08/15/22 fluoxetine 20 mg capsule (Prozac) 40 mg PO DAILY 06/08/20 08/15/22 ykpvtgpjvtnn-ldwfrkmj-lckych tablet 1 tab PO DAILY 06/08/20 08/15/22 calcium carbonate 500 mg calcium 500 mg PO DAILY 08/11/20 08/15/22 (1,250 mg) chewable tablet (Calcium 500) cholecalciferol (vitamin D3) 125 125 mcg PO DAILY 12/09/21 08/15/22 mcg (5,000 unit) capsule acetaminophen 500 mg tablet 1,000 mg PO Q6H PRN Pain, Mild 12/23/21 08/15/22 (Tylenol Extra Strength) fluoxetine 10 mg capsule 10 mg PO QAM 07/26/22 08/15/22 Previous Rx's Medication Instructions Recorded omeprazole 20 mg capsule,delayed 40 mg PO BID #180 caps 08/04/21 release ascorbic acid (vitamin C) 500 mg 500 mg PO DAILY #90 caps 11/10/21 tablet (Vitamin C) lisinopril 20 1 tab PO DAILY #90 caps 03/09/22 mg-hydrochlorothiazide 25 mg tablet simvastatin 10 mg tablet 10 mg PO BEDTIME #90 tabs 03/09/22 hydrocortisone 2.5 % topical cream 1 appl OK BID hemorrhoids #30 grams 05/05/22 with perineal applicator (Proctosol HC) metoclopramide HCl 5 mg tablet 5 mg PO QIDACHS #120 tabs 05/05/22 (Reglan) prazosin 1 mg capsule 2 mg PO BEDTIME 30 days #60 caps 05/05/22 ziprasidone HCl 20 mg capsule 20 mg PO BEDTIME 30 days #30 caps 05/05/22 simethicone 180 mg capsule 180 mg PO QID #120 caps 06/09/22 ferrous sulfate 325 mg (65 mg 325 mg PO DAILY #90 caps 07/07/22 iron) tablet imipramine HCl 25 mg tablet 25 mg PO BEDTIME #30 tabs 07/07/22 arlcuf-jfrfsuut-irzpvmu 1 cap PO QID #120 caps 07/26/22 36,000-114,000-180,000 unit capsule,delay rel (Creon) promethazine 25 mg tablet 25 mg PO .qac supper PRN nausea 07/26/22 and vomiting #30 tabs meloxicam 7.5 mg tablet 7.5 mg PO DAILY #30 tabs 08/07/22 sennosides 8.6 mg capsule (senna) 34.4 mg PO BEDTIME #120 caps 08/14/22 albuterol sulfate 90 mcg/actuation 2 puff inhalation Q4-6H PRN 08/15/22 aerosol inhaler (Ventolin HFA) shortness of breath or wheezing #8.5 grams dicyclomine 20 mg tablet 40 mg PO QID abdominal pain #240 08/21/22 tabs <Clay Rosas - Last Filed: 08/28/22 13:23> Allergies/adverse reactions: Allergies Allergy/AdvReac Type Severity Reaction Status Date / Time No Known Allergies Allergy Verified 08/28/22 13:20 [No Known Allergies*] <Clay Rosas - Last Filed: 08/28/22 13:23> Review of Systems Review of Systems: All other systems are reviewed and are negative Constitutional: Reports as per HPI and Reports no additional constitutional complaints Eyes: Reports as per HPI and Reports no additional eye complaints Reports system reviewed and no additional complaints, except as documented Cardiovascular: Reports as per HPI and Reports no additional cardiovascular complaints Respiratory: Reports as per HPI and Reports no additional respiratory complaints Gastrointestinal: Reports as per HPI and Reports no additional gastrointestinal complaints Genitourinary: Reports no additional female genitourinary complaints Musculoskeletal: Reports no additional musculoskeletal complaints Skin/Breast: Reports system reviewed and no additional complaints, except as docu Psychiatric: Reports no additional psychiatric complaints Endocrine: Reports no additional endocrine complaints Hematologic/Lymphatic: Reports no additional hematologic/lymphatic complaints Allergic/Immunologic: Reports no additional allergic/immunologic complaints Reports system reviewed and no additional complaints, except as documented and Reports Abnormal speech present <Yonathan Lezama MD - Last Filed: 08/28/22 21:07> COUNT INCLUDES THE [facility] Past Medical History Medical History: Medical History Abdominal cramping Cervical radiculopathy Constipation Diarrhea Esophageal dysmotility GERD (gastroesophageal reflux disease) History of colon polyps (~2015) HTN (hypertension) Hypercholesterolemia Hypersomnolence Impaired glucose tolerance Incarcerated hiatal hernia 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 Insomnia Intestinal malabsorption following gastrectomy Nausea Nausea and vomiting Neck pain Obesity (BMI 30-39.9) Polyarthralgia Polymyalgia PTSD (post-traumatic stress disorder) Rectal spasm Shoulder pain, right Snoring Vitamin D deficiency <Clay Rosas - Last Filed: 08/28/22 13:23> Surgical History: Surgical History History of bilateral breast reduction surgery (~2011) History of History of carpal tunnel release (~2001) History of colonoscopy (~2015) History of esophagogastroduodenoscopy (EGD) (~2020) History of excision of mass (~2016) History of laparoscopic adjustable gastric banding (~2010) History of neck surgery History of repair of hiatal hernia History of sleeve gastrectomy (~2016) History of tubal ligation (~2000) Hx of abdominoplasty Status post panniculectomy (~2013) <Clay Rosas - Last Filed: 08/28/22 13:23> Family History Family History: Family History Father Diabetes Mother High blood pressure High cholesterol Dementia Daughter Healthy female Son No problems noted. Son High blood pressure High cholesterol Sister Cervical cancer Maternal Grandmother Cervical cancer Other Mental health disorder <Clay Rosas - Last Filed: 08/28/22 13:23> Social History Social History: Social History Household Members: Children Housing: House Are you a primary medicare coordinator to a significant other at home: No Do you presently have visiting nurse or other home services: Yes ([employer]) Alcohol intake: never Patient Tobacco Use Status: Never used Tobacco Tobacco use type: Cigarette Years Smoked: stopped 1990 Smoked in Last 30 Days: No e-Cigarette/Vaping Use: Never Used Second Hand Smoke Exposure: No Use of substances other than those prescribed or required for medical reasons: No Advance Directives: No Advance Directives Information Provided: No Patient : No service: No Current occupational status: disabled Cognitive needs: Yes (cane) Hearing needs: No Vision needs: Yes (glasses) <Clay Rosas - Last Filed: 08/28/22 13:23> Physical Exam ED Vital Signs: Vital Signs - 24 hr 08/28/22 13:20 08/28/22 19:09 Temperature 98.8 F 97.8 F Pulse Rate 94 93 Respiratory Rate 19 15 Blood Pressure 185/109 H 163/98 H Pulse Oximetry 100 100 Oxygen Delivery Method Room Air Room Air BMI result Body Mass Index 30.5 <Clay Rosas - Last Filed: 08/28/22 13:23> Vital Signs - 24 hr 08/28/22 13:20 08/28/22 19:09 Temperature 98.8 F 97.8 F Pulse Rate 94 93 Respiratory Rate 19 15 Blood Pressure 185/109 H 163/98 H Pulse Oximetry 100 100 Oxygen Delivery Method Room Air Room Air BMI result Body Mass Index 30.5 Vital signs have been reviewed as appeared to be correct. Blood pressure normal. Heart rate normal. Respiration rate normal. Temperature normal. Oxygen saturation normal. <Yonathan Lezama MD - Last Filed: 08/28/22 21:07> Appearance: Anxious, Alert. Oriented X3. No acute distress. Head: Normal external exam. Normocephalic. Atraumatic. No Longo signs noted. No raccoon eyes noted Eyes: PERRLA. EOMI. Conjunctiva and sclera normal. Eyelids normal. ENT: TM's Normal. Pharynx normal. Uvula midline. Moist mucous membranes. No trismus noted. No drooling noted. No muffled voice noted. Neck: Normal inspection. Neck supple. FROM. No adenopathy. Thyroid Normal. No meningeal signs. No neck mass noted. CVS: Normal heart rate and rhythm. Heart sound normal. No murmurs noted. Pulses normal throughout. Respiratory: No respiratory distress. Painless inspiration. Breath sounds normal. No wheezes/rales/rhonchi noted. Chest nontender. No accessory muscle usage noted or decreased air movement noted. Abdomen: Soft and nontender. Bowel sounds normal in all 4 quadrants. No distention noted. No organomegaly noted. No visible injury noted. Back: No CVA tenderness. Full range of motion noted. Skin: Skin warm and dry. Normal skin color. Normal skin turgor. No rashes/lesions/lacerations noted. Extremities: No lower extremity edema. Extremities exhibit normal range of motion. Extremities nontender. Neuro: Oriented X 3. Cranial nerve exam: II-XII are grossly intact No motor deficit. No sensory deficit. Reflexes normal. <Yonathan Lezama MD - Last Filed: 08/28/22 21:07> Course Course Course Narrative: RME- 57-year-old female presents for evaluation of shortness of breath, anxiety and high blood pressure. She reports her symptoms started 1 week ago and she gets ?very shaky and out of breath and my blood pressure is really high. ? Denies any chest pain. Also endorses headache. Plan for labs, viral swab, chest x-ray, EKG <Clay Rosas - Last Filed: 08/28/22 13:23> Reevaluation(s) Reevaluation #1: Patient with history of anxiety, came in with anxiety that is causing patient's symptoms, patient has unremarkable workup, slightly elevated blood pressure while she is in the ED which was attributed to anxiety. Patient fell at improvement of her symptoms after Ativan. Stable vital signs, normal O2 saturation. <Yonathan Lezama MD - Last Filed: 08/28/22 21:07> Time: 21:04 <Yonathan Lezama MD - Last Filed: 08/28/22 21:07> Medications Administered Discontinued Medications Generic Name Dose Route Start Last Admin Trade Name Freq PRN Reason Stop Dose Admin Lorazepam 2 mg 08/28/22 19:43 08/28/22 20:03 Lorazepam 1 Mg Tablet PO 08/28/22 19:44 2 mg ONCE ONE Administration <Clay Rosas - Last Filed: 08/28/22 13:23> Medications Administered Discontinued Medications Generic Name Dose Route Start Last Admin Trade Name Freq PRN Reason Stop Dose Admin Lorazepam 2 mg 08/28/22 19:43 08/28/22 20:03 Lorazepam 1 Mg Tablet PO 08/28/22 19:44 2 mg ONCE ONE Administration <Yonathan Lezama MD - Last Filed: 08/28/22 21:07> Medical Decision Making Differential Diagnosis Differential Diagnoses: The differential diagnosis associated with the presentation includes (Pulmonary embolism, pneumonia, pneumothorax, bronchitis, ACS, electrolyte disturbance, severe anemia, anxiety.) <Yonathan Lezama MD - Last Filed: 08/28/22 21:07> Lab Data MDM Lab Attestation statement: I reviewed the patient's lab results. <Yonathan Lezama MD - Last Filed: 08/28/22 21:07> Result Diagrams: 08/28/22 13:53 08/28/22 13:53 <Clay Rosas - Last Filed: 08/28/22 13:23> Labs: Lab Results 08/28/22 08/28/22 08/28/22 Range/Units 13:53 13:53 13:53 WBC 7.0 (4.8-10.8) X10*3/uL RBC 4.04 L (4.20-5.50) X10*6/uL Hgb 11.6 L (12.0-16.0) g/dl Hct 35.5 L (37.0-47.0) % MCV 87.9 (80.0-98.0) fL MCH 28.7 (27.0-33.0) pg MCHC 32.7 (31.0-35.0) g/dl RDW 12.7 (11.0-16.0) % Plt Count 288 (160-400) X10*3/uL MPV 8.7 L (9.4-12.3) fL Immature Gran % (Auto) 0.1 (0.0-0.4) % Neut % (Auto) 58.0 (45-73) % Lymph % (Auto) 30.6 (20-40) % [place] % (Auto) 9.6 (2-11) % Eos % (Auto) 1.1 (0-4) % Baso % (Auto) 0.6 (0-2) % Lymph # (Auto) 2.1 (1.2-4.9) X10*3/uL [place] # (Auto) 0.7 (0.1-1.2) X10*3/uL Eos # (Auto) 0.1 (0.0-0.4) X10*3/uL Baso # (Auto) 0.0 (0.0-0.2) X10*3/uL Abs Immat Gran (auto) 0.01 (0.00-0.03) X10*3/uL Absolute Neuts (auto) 4.0 (2.0-8.3) x10*3/uL Absolute Nucleated RBC 0.000 (0.0-0.012) X10*3/uL Nucleated RBC % (auto) 0.0 (0.0-0.2) /100WBC D-Dimer High Sensitivty NG/ML Sodium 142 (135-145) mmol/L Potassium 4.1 (3.3-5.1) mmol/L Chloride 106 (96-108) mmol/L Carbon Dioxide 26 (22-29) mmol/L Anion Gap 14 (12-20) BUN 16 (9-16) mg/dL Creatinine 0.95 (0.5-1.4) mg/dL Estim Creat Clear Calc 61.5 Estimated GFR > 60 Random Glucose 89 (60-115) mg/dL Calcium 9.5 (8.4-10.2) mg/dL Magnesium 1.8 (1.6-2.6) mg/dL Total Bilirubin 0.5 (0.0-1.0) mg/dL AST 38 H (5-31) U/L ALT 48 H (0-31) U/L Alkaline Phosphatase 68 (39-117) U/L Troponin I High Sens (<3.5-17.0) ng/L Total Protein 6.7 (6.5-8.0) g/dL Albumin 4.4 (3.5-5.0) g/dL Lipase 41 (8-78) U/L COVID-19 (YIN) (Negative) COVID-19 Clin Com Influenza Type A (MARY) Negative (Negative) Influenza Type B (MARY) Negative (Negative) Influenza A & B Note See Note 08/28/22 08/28/22 08/28/22 Range/Units 13:53 13:53 20:09 WBC (4.8-10.8) X10*3/uL RBC (4.20-5.50) X10*6/uL Hgb (12.0-16.0) g/dl Hct (37.0-47.0) % MCV (80.0-98.0) fL MCH (27.0-33.0) pg MCHC (31.0-35.0) g/dl RDW (11.0-16.0) % Plt Count (160-400) X10*3/uL MPV (9.4-12.3) fL Immature Gran % (Auto) (0.0-0.4) % Neut % (Auto) (45-73) % Lymph % (Auto) (20-40) % [place] % (Auto) (2-11) % Eos % (Auto) (0-4) % Baso % (Auto) (0-2) % Lymph # (Auto) (1.2-4.9) X10*3/uL [place] # (Auto) (0.1-1.2) X10*3/uL Eos # (Auto) (0.0-0.4) X10*3/uL Baso # (Auto) (0.0-0.2) X10*3/uL Abs Immat Gran (auto) (0.00-0.03) X10*3/uL Absolute Neuts (auto) (2.0-8.3) x10*3/uL Absolute Nucleated RBC (0.0-0.012) X10*3/uL Nucleated RBC % (auto) (0.0-0.2) /100WBC D-Dimer High Sensitivty < 150 NG/ML Sodium (135-145) mmol/L Potassium (3.3-5.1) mmol/L Chloride (96-108) mmol/L Carbon Dioxide (22-29) mmol/L Anion Gap (12-20) BUN (9-16) mg/dL Creatinine (0.5-1.4) mg/dL Estim Creat Clear Calc Estimated GFR Random Glucose (60-115) mg/dL Calcium (8.4-10.2) mg/dL Magnesium (1.6-2.6) mg/dL Total Bilirubin (0.0-1.0) mg/dL AST (5-31) U/L ALT (0-31) U/L Alkaline Phosphatase (39-117) U/L Troponin I High Sens < 2.7 (<3.5-17.0) ng/L Total Protein (6.5-8.0) g/dL Albumin (3.5-5.0) g/dL Lipase (8-78) U/L COVID-19 (YIN) Negative (Negative) COVID-19 Clin Com See Note Influenza Type A (MARY) (Negative) Influenza Type B (MARY) (Negative) Influenza A & B Note 08/28/22 Range/Units 20:09 WBC (4.8-10.8) X10*3/uL RBC (4.20-5.50) X10*6/uL Hgb (12.0-16.0) g/dl Hct (37.0-47.0) % MCV (80.0-98.0) fL MCH (27.0-33.0) pg MCHC (31.0-35.0) g/dl RDW (11.0-16.0) % Plt Count (160-400) X10*3/uL MPV (9.4-12.3) fL Immature Gran % (Auto) (0.0-0.4) % Neut % (Auto) (45-73) % Lymph % (Auto) (20-40) % [place] % (Auto) (2-11) % Eos % (Auto) (0-4) % Baso % (Auto) (0-2) % Lymph # (Auto) (1.2-4.9) X10*3/uL [place] # (Auto) (0.1-1.2) X10*3/uL Eos # (Auto) (0.0-0.4) X10*3/uL Baso # (Auto) (0.0-0.2) X10*3/uL Abs Immat Gran (auto) (0.00-0.03) X10*3/uL Absolute Neuts (auto) (2.0-8.3) x10*3/uL Absolute Nucleated RBC (0.0-0.012) X10*3/uL Nucleated RBC % (auto) (0.0-0.2) /100WBC D-Dimer High Sensitivty NG/ML Sodium (135-145) mmol/L Potassium (3.3-5.1) mmol/L Chloride (96-108) mmol/L Carbon Dioxide (22-29) mmol/L Anion Gap (12-20) BUN (9-16) mg/dL Creatinine (0.5-1.4) mg/dL Estim Creat Clear Calc Estimated GFR Random Glucose (60-115) mg/dL Calcium (8.4-10.2) mg/dL Magnesium (1.6-2.6) mg/dL Total Bilirubin (0.0-1.0) mg/dL AST (5-31) U/L ALT (0-31) U/L Alkaline Phosphatase (39-117) U/L Troponin I High Sens < 2.7 (<3.5-17.0) ng/L Total Protein (6.5-8.0) g/dL Albumin (3.5-5.0) g/dL Lipase (8-78) U/L COVID-19 (YIN) (Negative) COVID-19 Clin Com Influenza Type A (MARY) (Negative) Influenza Type B (MARY) (Negative) Influenza A & B Note <Clay Rosas - Last Filed: 08/28/22 13:23> Lab Results 08/28/22 08/28/22 08/28/22 Range/Units 13:53 13:53 13:53 WBC 7.0 (4.8-10.8) X10*3/uL RBC 4.04 L (4.20-5.50) X10*6/uL Hgb 11.6 L (12.0-16.0) g/dl Hct 35.5 L (37.0-47.0) % MCV 87.9 (80.0-98.0) fL MCH 28.7 (27.0-33.0) pg MCHC 32.7 (31.0-35.0) g/dl RDW 12.7 (11.0-16.0) % Plt Count 288 (160-400) X10*3/uL MPV 8.7 L (9.4-12.3) fL Immature Gran % (Auto) 0.1 (0.0-0.4) % Neut % (Auto) 58.0 (45-73) % Lymph % (Auto) 30.6 (20-40) % [place] % (Auto) 9.6 (2-11) % Eos % (Auto) 1.1 (0-4) % Baso % (Auto) 0.6 (0-2) % Lymph # (Auto) 2.1 (1.2-4.9) X10*3/uL [place] # (Auto) 0.7 (0.1-1.2) X10*3/uL Eos # (Auto) 0.1 (0.0-0.4) X10*3/uL Baso # (Auto) 0.0 (0.0-0.2) X10*3/uL Abs Immat Gran (auto) 0.01 (0.00-0.03) X10*3/uL Absolute Neuts (auto) 4.0 (2.0-8.3) x10*3/uL Absolute Nucleated RBC 0.000 (0.0-0.012) X10*3/uL Nucleated RBC % (auto) 0.0 (0.0-0.2) /100WBC D-Dimer High Sensitivty NG/ML Sodium 142 (135-145) mmol/L Potassium 4.1 (3.3-5.1) mmol/L Chloride 106 (96-108) mmol/L Carbon Dioxide 26 (22-29) mmol/L Anion Gap 14 (12-20) BUN 16 (9-16) mg/dL Creatinine 0.95 (0.5-1.4) mg/dL Estim Creat Clear Calc 61.5 Estimated GFR > 60 Random Glucose 89 (60-115) mg/dL Calcium 9.5 (8.4-10.2) mg/dL Magnesium 1.8 (1.6-2.6) mg/dL Total Bilirubin 0.5 (0.0-1.0) mg/dL AST 38 H (5-31) U/L ALT 48 H (0-31) U/L Alkaline Phosphatase 68 (39-117) U/L Troponin I High Sens (<3.5-17.0) ng/L Total Protein 6.7 (6.5-8.0) g/dL Albumin 4.4 (3.5-5.0) g/dL Lipase 41 (8-78) U/L COVID-19 (YIN) (Negative) COVID-19 Clin Com Influenza Type A (MARY) Negative (Negative) Influenza Type B (MARY) Negative (Negative) Influenza A & B Note See Note 08/28/22 08/28/22 08/28/22 Range/Units 13:53 13:53 20:09 WBC (4.8-10.8) X10*3/uL RBC (4.20-5.50) X10*6/uL Hgb (12.0-16.0) g/dl Hct (37.0-47.0) % MCV (80.0-98.0) fL MCH (27.0-33.0) pg MCHC (31.0-35.0) g/dl RDW (11.0-16.0) % Plt Count (160-400) X10*3/uL MPV (9.4-12.3) fL Immature Gran % (Auto) (0.0-0.4) % Neut % (Auto) (45-73) % Lymph % (Auto) (20-40) % [place] % (Auto) (2-11) % Eos % (Auto) (0-4) % Baso % (Auto) (0-2) % Lymph # (Auto) (1.2-4.9) X10*3/uL [place] # (Auto) (0.1-1.2) X10*3/uL Eos # (Auto) (0.0-0.4) X10*3/uL Baso # (Auto) (0.0-0.2) X10*3/uL Abs Immat Gran (auto) (0.00-0.03) X10*3/uL Absolute Neuts (auto) (2.0-8.3) x10*3/uL Absolute Nucleated RBC (0.0-0.012) X10*3/uL Nucleated RBC % (auto) (0.0-0.2) /100WBC D-Dimer High Sensitivty < 150 NG/ML Sodium (135-145) mmol/L Potassium (3.3-5.1) mmol/L Chloride (96-108) mmol/L Carbon Dioxide (22-29) mmol/L Anion Gap (12-20) BUN (9-16) mg/dL Creatinine (0.5-1.4) mg/dL Estim Creat Clear Calc Estimated GFR Random Glucose (60-115) mg/dL Calcium (8.4-10.2) mg/dL Magnesium (1.6-2.6) mg/dL Total Bilirubin (0.0-1.0) mg/dL AST (5-31) U/L ALT (0-31) U/L Alkaline Phosphatase (39-117) U/L Troponin I High Sens < 2.7 (<3.5-17.0) ng/L Total Protein (6.5-8.0) g/dL Albumin (3.5-5.0) g/dL Lipase (8-78) U/L COVID-19 (YIN) Negative (Negative) COVID-19 Clin Com See Note Influenza Type A (MARY) (Negative) Influenza Type B (MARY) (Negative) Influenza A & B Note 08/28/22 Range/Units 20:09 WBC (4.8-10.8) X10*3/uL RBC (4.20-5.50) X10*6/uL Hgb (12.0-16.0) g/dl Hct (37.0-47.0) % MCV (80.0-98.0) fL MCH (27.0-33.0) pg MCHC (31.0-35.0) g/dl RDW (11.0-16.0) % Plt Count (160-400) X10*3/uL MPV (9.4-12.3) fL Immature Gran % (Auto) (0.0-0.4) % Neut % (Auto) (45-73) % Lymph % (Auto) (20-40) % [place] % (Auto) (2-11) % Eos % (Auto) (0-4) % Baso % (Auto) (0-2) % Lymph # (Auto) (1.2-4.9) X10*3/uL [place] # (Auto) (0.1-1.2) X10*3/uL Eos # (Auto) (0.0-0.4) X10*3/uL Baso # (Auto) (0.0-0.2) X10*3/uL Abs Immat Gran (auto) (0.00-0.03) X10*3/uL Absolute Neuts (auto) (2.0-8.3) x10*3/uL Absolute Nucleated RBC (0.0-0.012) X10*3/uL Nucleated RBC % (auto) (0.0-0.2) /100WBC D-Dimer High Sensitivty NG/ML Sodium (135-145) mmol/L Potassium (3.3-5.1) mmol/L Chloride (96-108) mmol/L Carbon Dioxide (22-29) mmol/L Anion Gap (12-20) BUN (9-16) mg/dL Creatinine (0.5-1.4) mg/dL Estim Creat Clear Calc Estimated GFR Random Glucose (60-115) mg/dL Calcium (8.4-10.2) mg/dL Magnesium (1.6-2.6) mg/dL Total Bilirubin (0.0-1.0) mg/dL AST (5-31) U/L ALT (0-31) U/L Alkaline Phosphatase (39-117) U/L Troponin I High Sens < 2.7 (<3.5-17.0) ng/L Total Protein (6.5-8.0) g/dL Albumin (3.5-5.0) g/dL Lipase (8-78) U/L COVID-19 (YIN) (Negative) COVID-19 Clin Com Influenza Type A (MARY) (Negative) Influenza Type B (MARY) (Negative) Influenza A & B Note <Yonathan Lezama MD - Last Filed: 08/28/22 21:07> Independent Interpretation I performed an independent interpretation of an: Plain X-Ray (Chest: Unremarkable examination.) <Yonathan Lezama MD - Last Filed: 08/28/22 21:07> Radiology Impression Discussion of test interpretation with radiology: I have reviewed the radiologist's reading. <Yonathan Lezama MD - Last Filed: 08/28/22 21:07> Discharge Plan Discharge Clinical Impression: Anxiety <Clay Rosas - Last Filed: 08/28/22 13:23> Patient Disposition: Home, Self-Care <Clay Rosas - Last Filed: 08/28/22 13:23> Instructions: Anxiety (ED) <Clay Rosas - Last Filed: 08/28/22 13:23> Prescriptions: No Action ascorbic acid (vitamin C) [Vitamin C] 500 mg tablet 500 mg PO DAILY Qty: 90 3RF lisinopril-hydrochlorothiazide 20-25 mg tablet 1 tab PO DAILY Qty: 90 2RF simvastatin 10 mg tablet 10 mg PO BEDTIME Qty: 90 2RF prazosin 1 mg capsule 2 mg PO BEDTIME 30 Days Qty: 60 0RF ziprasidone HCl 20 mg capsule 20 mg PO BEDTIME 30 Days Qty: 30 0RF simethicone 180 mg capsule 180 mg PO QID Qty: 120 0RF imipramine HCl 25 mg tablet 25 mg PO BEDTIME Qty: 30 3RF Rx Instructions: provider aware of interaction of high dose TCA with prozac and will monitor ferrous sulfate 325 mg (65 mg iron) tablet 325 mg PO DAILY Qty: 90 3RF meloxicam 7.5 mg tablet 7.5 mg PO DAILY Qty: 30 0RF senna 8.6 mg capsule 34.4 mg PO BEDTIME Qty: 120 0RF dicyclomine 20 mg tablet 40 mg PO QID Qty: 240 3RF clonazepam 0.5 mg Tablet 0.5 mg PO DAILY PRN (Reason: Anxiety) fluoxetine [Prozac] 20 mg Capsule 40 mg PO DAILY Rx Instructions: Take 2 tabs PO Daily crwlcxquwjzj-[id number] Tablet 1 tab PO DAILY albuterol sulfate [Ventolin HFA] 90 mcg/actuation HFA aerosol inhaler 2 puff inhalation Q4-6H PRN (Reason: shortness of breath or wheezing) Qty: 8.5 0RF bupropion HCl 150 mg tablet extended release 24 hr 300 mg PO QAM calcium carbonate [Calcium 500] 500 mg calcium (1,250 mg) tablet,chewable 500 mg PO DAILY fluoxetine 10 mg capsule 10 mg PO QAM promethazine 25 mg tablet 25 mg PO .qac supper PRN (Reason: nausea and vomiting) Qty: 30 3RF Creon 36,000-114,000- 180,000 unit capsule,delayed release(DR/EC) 1 cap PO QID Qty: 120 3RF Rx Instructions: administer with meals and/or snacks omeprazole 20 mg capsule,delayed release(DR/EC) 40 mg PO BID Qty: 180 1RF cholecalciferol (vitamin D3) 125 mcg (5,000 unit) capsule 125 mcg PO DAILY acetaminophen [Tylenol Extra Strength] 500 mg tablet 1,000 mg PO Q6H PRN (Reason: Pain, Mild) hydrocortisone [Proctosol HC] 2.5 % cream with perineal applicator 1 appl OK BID Qty: 30 3RF metoclopramide HCl [Reglan] 5 mg tablet 5 mg PO QIDACHS Qty: 120 3RF Rx Instructions: Provider aware of possible interactions and is monitoring <Clay Rosas - Last Filed: 08/28/22 13:23> Referrals: Po,Demi Rendon MD [Primary Care Provider] - <Clay Rosas - Last Filed: 08/28/22 13:23>
--- NOTE | 2022-08-28 13:22 | ECG_ITS ---
Test Reason : sob Blood Pressure : / mmHG Vent. Rate : 086 BPM Atrial Rate : 086 BPM P-R Int : 134 ms QRS Dur : 084 ms QT Int : 360 ms P-R-T Axes : 031 -13 069 degrees QTc Int : 430 ms Normal sinus rhythm Minimal voltage criteria for LVH, may be normal variant ( R in aVL ) Nonspecific ST and T wave abnormality Abnormal ECG When compared with ECG of 15-AUG-2022 10:17, No significant change was found Referred By: Clay Rosas Electronically Signed By:ZAY ZAZUETA
[2022-08-28 13:58] LABS: MANUAL DIFF FLAG NO
[2022-08-28 14:06] LABS: Basophils Percent Auto 0.6 % (0-2); Eosinophils Absolute Auto 0.1 X10*3/uL (0.0-0.4); Eosinophils Percent Auto 1.1 % (0-4); Hematocrit 35.5 % (37.0-47.0); Hemoglobin 11.6 g/dl (12.0-16.0); Imm Gran Abs Auto 0.01 X10*3/uL (0.00-0.03); Imm Gran Pct Auto 0.1 % (0.0-0.4); Lymphocytes Absolute Auto 2.1 X10*3/uL (1.2-4.9); Lymphocytes Percent Auto 30.6 % (20-40); Mean Corpuscular HGB Conc 32.7 g/dl (31.0-35.0); Mean Corpuscular Hemoglobin 28.7 pg (27.0-33.0); Mean Corpuscular Volume 87.9 fL (80.0-98.0); Mean Platelet Volume 8.7 fL (9.4-12.3); Monocytes Absolute Auto 0.7 X10*3/uL (0.1-1.2); Monocytes Percent Auto 9.6 % (2-11); Platelet Count 288 X10*3/uL (160-400); Red Blood Count 4.04 X10*6/uL (4.20-5.50); Red Cell Distribution Width 12.7 % (11.0-16.0)
[2022-08-28 14:30] LABS: Alanine Aminotransferase 48 U/L (0-31); Albumin Level 4.4 g/dL (3.5-5.0); Alkaline Phosphatase 68 U/L (39-117); Anion Gap 14 (12-20); Aspartate Amino Transferase 38 U/L (5-31); Bilirubin Total 0.5 mg/dL (0.0-1.0); Blood Urea Nitrogen 16 mg/dL (9-16); Calcium 9.5 mg/dL (8.4-10.2); Carbon Dioxide 26 mmol/L (22-29); Chloride 106 mmol/L (96-108); Creatinine Clr Calc Pharmacy 61.5; Estimated Glomerular Filt Rate > 60; Glucose Random 89 mg/dL (60-115); Lipase 41 U/L (8-78); Magnesium 1.8 mg/dL (1.6-2.6); Potassium 4.1 mmol/L (3.3-5.1); Sodium 142 mmol/L (135-145); Total Protein 6.7 g/dL (6.5-8.0)
[2022-08-28 14:34] LABS: COVID-19 Test Negative (Negative); IDNOW Serial# 9DB6401D; IDNOW Serial# BCCEAD1C; Influenza A Negative (Negative); Influenza B2 Negative (Negative)
[2022-08-28 14:40] LABS: Troponin-I High Sensitivity < 2.7 ng/L (<3.5-17.0)
[2022-08-28 19:09] VITALS: BP 163/98; PULSE 93; RESP 15; TEMP 36.6; O2SAT 100
--- NOTE | 2022-08-28 19:37 | PC.NURSE ---
pt c/o htn, hodges, dizziness, anxiety pt has h/o anxiety and takes wellbutrin, has noticed she has been having more panic attacks when asked if anything in particular is triggering her anxiety and panic attacks pt responded, I worry about everything . pt is visibly anxiou sand shaky states she tends to forget her words or trouble finding them respirations elevated, as high as 30 RR, bp elevated pt states feeling like she needs to catch her breath, shallow breathing/irreg will CTM continuous air sampling and monitoring placed d/t c/o sob
--- NOTE | 2022-08-28 19:46 | PC.NURSE ---
pt states having episodes of dizziness and fell 2x recently denies head injury
[2022-08-28] MEDS: LORazepam 1 MG TABLET 2 MG PO (20:03)
[2022-08-28 20:29] LABS: D Dimer High Sensitivity < 150 NG/ML
[2022-08-28 20:40] LABS: Troponin-I High Sensitivity < 2.7 ng/L (<3.5-17.0)
[2022-08-28 21:06] VITALS: BP 159/108; PULSE 85; RESP 15; TEMP 36.7; O2SAT 96
--- NOTE | 2022-08-28 21:23 | PC.NURSE ---
Discharge instructions given and explained to patient. No apparent distress, no sob, and able to speak in full sentences. Steady and safe gait observed.
== END 2022-08-28 21:24 | disposition home or self-care (01) ==
PROVIDERS: Physician Assistant; Emergency Provider Emergency Medicine; PCP Internal Medicine
DX: R06.02 Shortness of breath (principal); F41.1 Generalized anxiety disorder; F43.0 Acute stress reaction; Z20.822 Contact with and (suspected) exposure to COVID-19; Z20.828 Contact with and (suspected) exposure to other viral communicable diseases; Z79.899 Other long term (current) drug therapy
CPT/HCPCS: 36415; 71046; 80053; 83690; 83735; 84484; 85025; 85379; 87502; 87635; 93005; 99283; 99284

== ENCOUNTER 2022-09-04 12:36 | Outpatient (REF) | payer OTHER, SELFPAY ==
--- NOTE | ~2022-09-04 | CT_ITS ---
EXAMINATION: CT HEAD WITHOUT CONTRAST CLINICAL INFORMATION: Other general symptoms and signs COMPARISON: Previous head CT February 2021 TECHNIQUE: Contiguous axial imaging was performed from the skull base to vertex without intravenous administration of contrast. This CT examination was performed using dose optimization techniques as appropriate, variously including the following: *Automated exposure control *Adjustment of mA and/or kV according to patient size (this includes techniques or standardized protocols for targeted exams where dose is matched to indication/reason for exam; i.e. extremities or head) *Use of iterative reconstruction technique DLP: 738 mGy-cm FINDINGS: There is no evidence of an extra-axial collection. There is no evidence of intra or extra-axial hemorrhage. Ventricles and extra-axial CSF spaces are appropriate. Johnson-white matter differentiation is normal. No mass, mass effect or infarct. Review of bone windows is normal. There is a polyp or cyst in the left maxillary sinus. Visualized paranasal sinuses, mastoid air cells and middle ears are otherwise clear. CT/CT head/brain wo IV con IMPRESSION: No acute intracranial findings.
== END 2022-09-04 12:37 | disposition home or self-care (01) ==
LOC: HO.CT 12:36
PROVIDERS: PCP Internal Medicine; Visit Provider Nurse Practitioner Family
DX: R68.89 Other general symptoms and signs (principal)
CPT/HCPCS: 70450

== ENCOUNTER → 2022-09-06 11:16 | Outpatient (BNVA) | payer OTHER, SELFPAY | PROVIDERS: PCP Internal Medicine; Visit Provider Nurse Practitioner | DX: K58.9 Irritable bowel syndrome, unspecified (principal); K21.9 Gastro-esophageal reflux disease without esophagitis; K91.2 Postsurgical malabsorption, not elsewhere classified; R11.2 Nausea with vomiting, unspecified; Z90.3 Acquired absence of stomach [part of]; Z98.84 Bariatric surgery status | CPT/HCPCS: 99212 ==

== ENCOUNTER → 2022-09-19 08:59 | Outpatient (REF) | payer OTHER, SELFPAY ==
--- NOTE | 2022-09-19 09:01 | HM_ITS ---
Conclusion: 1. Patient was monitored for total period of 3 days 2. Baseline was normal sinus rhythm with average heart of 82 beats per minute 3. No significant pauses or bradycardia noted 4. Very rare ectopy noted 5. No patient reported symptoms MTDD
== END ==
LOC: HO.CARD 08:59
PROVIDERS: PCP Internal Medicine; Visit Provider Physician Assistant
DX: R00.2 Palpitations (principal); R42 Dizziness and giddiness
CPT/HCPCS: 93242

== ENCOUNTER 2023-01-07 20:06 | Emergency (ER) | payer OTHER, SELFPAY ==
--- NOTE | ~2023-01-07 | XR_ITS ---
EXAMINATION: XR CHEST CLINICAL INFORMATION: Cough for one and half months. COMPARISON: Chest done on 08/28/2022. TECHNIQUE: 2 views of the chest were obtained. FINDINGS: No significant abnormality is noted involving the heart, lungs, mediastinum, bony thorax or soft tissues. Postsurgical changes at left upper quadrant of the abdomen. XR/XR chest 2V IMPRESSION: No radiographic evidence of acute cardiopulmonary disease, unchanged since 08/28/2022.
[2023-01-07 20:21] VITALS: BP 124/82; PULSE 86; RESP 18; TEMP 36.3; O2SAT 97; BMI 32.9
[2023-01-07 21:34] LABS: COVID-19 Test Negative (Negative); IDNOW Serial# 6674DD1D
[2023-01-07 22:31] VITALS: BP 152/97; PULSE 73; RESP 15; TEMP 36.9; O2SAT 100
--- NOTE | 2023-01-07 22:55 | ED.URI ---
HPI - URI/Sore Throat General Chief Complaint: Upper Respiratory Symptoms Stated Complaint: cough for 1month / chest and back pain Time Seen by Provider: 01/07/23 22:54 Source: patient Mode of arrival: ambulatory Limitations: no limitations History of Present Illness HPI Narrative: Patient coughing for last 1 month mostly dry but could hear phlegm in her chest when she coughs no fever no chills no change in living condition at home no history of asthma patient has been taking lisinopril for years Related Data Home Medications Medication Instructions Recorded Confirmed bupropion HCl 150 mg 24 hr tablet, 300 mg PO QAM 03/05/20 09/28/22 extended release clonazepam 0.5 mg tablet 0.5 mg PO DAILY PRN Anxiety 06/08/20 09/28/22 fluoxetine 20 mg capsule (Prozac) 40 mg PO DAILY 06/08/20 09/28/22 oezdtvebscfu-wrwvmtfx-jcvdys tablet 1 tab PO DAILY 06/08/20 09/28/22 cholecalciferol (vitamin D3) 125 125 mcg PO DAILY 12/09/21 09/28/22 mcg (5,000 unit) capsule acetaminophen 500 mg tablet 1,000 mg PO Q6H PRN Pain, Mild 12/23/21 09/28/22 (Tylenol Extra Strength) fluoxetine 10 mg capsule 10 mg PO QAM 07/26/22 09/28/22 Previous Rx's Medication Instructions Recorded hydrocortisone 2.5 % topical cream 1 appl [place] BID hemorrhoids #30 grams 05/05/22 with perineal applicator (Proctosol HC) prazosin 1 mg capsule 2 mg (2 x 1 mg) PO BEDTIME 30 days 05/05/22 #60 caps ziprasidone HCl 20 mg capsule 20 mg PO BEDTIME 30 days #30 caps 05/05/22 ferrous sulfate 325 mg (65 mg 325 mg PO DAILY #90 caps 07/07/22 iron) tablet albuterol sulfate 90 mcg/actuation 2 puff inhalation Q4-6H PRN 08/15/22 aerosol inhaler (Ventolin HFA) shortness of breath or wheezing #8.5 grams luwrrp-odtnkggz-pjlzgho 1 cap PO QID #120 caps 09/06/22 36,000-114,000-180,000 unit capsule,delay rel (Creon) metoclopramide HCl 5 mg tablet 5 mg PO QIDACHS #120 tabs 09/06/22 (Reglan) omeprazole 20 mg capsule,delayed 40 mg (2 x 20 mg) PO BID #180 caps 09/06/22 release sennosides 8.6 mg capsule (senna) 34.4 mg (4 x 8.6 mg) PO BEDTIME 09/06/22 #120 caps simethicone 180 mg capsule 180 mg PO QID #120 caps 09/06/22 metoprolol succinate 25 mg 25 mg PO DAILY 30 days #90 tabs 10/31/22 tablet,extended release 24 hr ascorbic acid (vitamin C) 500 mg 500 mg PO DAILY #90 caps 11/03/22 tablet (Vitamin C) imipramine HCl 25 mg tablet 25 mg PO BEDTIME #30 tabs 11/16/22 promethazine 25 mg tablet 25 mg PO TID PRN for 11/16/22 nausea/vomiting #30 tabs lisinopril 20 1 tab PO DAILY #90 caps 12/04/22 mg-hydrochlorothiazide 25 mg tablet simvastatin 10 mg tablet 10 mg PO BEDTIME #90 tabs 12/04/22 meloxicam 7.5 mg tablet 7.5 mg PO DAILY #90 tabs 12/07/22 dicyclomine 20 mg tablet 40 mg (2 x 20 mg) PO QID for 01/01/23 abdominal pain #240 tabs albuterol sulfate 90 mcg/actuation 2 puff inhalation Q4-6H PRN 01/07/23 aerosol inhaler (ProAir HFA) shortness of breath or wheezing #8.5 grams benzonatate 200 mg capsule 200 mg PO TID PRN cough #20 caps 01/07/23 cefuroxime axetil 500 mg tablet 500 mg PO BID 7 days #14 tabs 01/07/23 prednisone 20 mg tablet 40 mg (2 x 20 mg) PO DAILY #10 tabs 01/07/23 Allergies Allergy/AdvReac Type Severity Reaction Status Date / Time No Known Allergies Allergy Verified 01/07/23 20:21 [No Known Allergies*] Review of Systems Review of Systems: Yes all other systems are reviewed and are negative PMFSH Past Medical History Medical History Abdominal cramping Cervical radiculopathy Constipation Diarrhea Esophageal dysmotility GERD (gastroesophageal reflux disease) History of colon polyps (~2015) HTN (hypertension) Hypercholesterolemia Hypersomnolence Impaired glucose tolerance Incarcerated hiatal hernia 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 Insomnia Intestinal malabsorption following gastrectomy Nausea Nausea and vomiting Neck pain Obesity (BMI 30-39.9) Polyarthralgia Polymyalgia PTSD (post-traumatic stress disorder) Rectal spasm Shoulder pain, right Snoring Vitamin D deficiency Surgical History History of bilateral breast reduction surgery (~2011) History of History of carpal tunnel release (~2001) History of colonoscopy (~2015) History of esophagogastroduodenoscopy (EGD) (~2020) History of excision of mass (~2016) History of laparoscopic adjustable gastric banding (~2010) History of neck surgery History of repair of hiatal hernia History of sleeve gastrectomy (~2016) History of tubal ligation (~2000) Hx of abdominoplasty Status post panniculectomy (~2013) Family History Family History Father Diabetes Mother High blood pressure High cholesterol Dementia Daughter Healthy female Son No problems noted. Son High blood pressure High cholesterol Sister Cervical cancer Maternal Grandmother Cervical cancer Other Mental health disorder Social History Social History Household Members: Children Housing: House Are you a primary hospice patient care secretary to a significant other at home: No Do you presently have visiting nurse or other home services: Yes ([facility]) Alcohol intake: current Alcohol intake frequency: holidays/special occasions only Patient Tobacco Use Status: Never used Tobacco Tobacco use type: Cigarette Years Smoked: stopped 1990 Smoked in Last 30 Days: No e-Cigarette/Vaping Use: Never Used Second Hand Smoke Exposure: No Use of substances other than those prescribed or required for medical reasons: No Advance Directives: No Advance Directives Information Provided: No Patient : No service: No Current occupational status: disabled Cognitive needs: Yes (cane) Hearing needs: No Vision needs: Yes (glasses) Physical Exam Vital Signs: Vital Signs: Last Vital Signs Temp 98.5 F 01/07/23 22:31 Pulse 73 01/07/23 22:31 Resp 15 01/07/23 22:31 BP 152/97 H 01/07/23 22:31 Pulse Ox 100 01/07/23 22:31 O2 Del Method Room Air 01/07/23 22:31 BMI result Body Mass Index 32.9 Appearance: Alert. Oriented X3. No acute distress. Eyes: PERRLA, ENT: Pharynx normal. Oral Mucosa moist Neck: Normal inspection. Neck supple. CVS: Normal heart rate and rhythm. Pulses normal. Respiratory: No respiratory distress. Equal air entry bilateral, no wheezing/rales/rhonchi prolonged expiration Abdomen: Soft and nontender. Bowel sounds are present, no mass palpable, no CVA tenderness Skin: Skin warm and dry. Normal skin color. Normal skin turgor. Extremities: No lower extremity edema. No calf tenderness Neuro: Oriented X 3. No motor deficit. No sensory deficit.No cerebellar signs , cranial nerves II-XII intact Medical Decision Making Medical Decision Making [facility] Narrative: Clinically patient has bronchitis chest x-ray negative CBC normal also possible side effect of RAND I will try course of antibiotic advised to follow-up with PCP if the cough continues Differential Diagnosis Differential Diagnoses: The differential diagnosis associated with the presentation includes Bronchitis/side effect of RAND-inhibitor/pneumonia/S Lab Data [facility] Lab Attestation statement: I reviewed the patient's lab results. 01/07/23 22:51 01/07/23 22:51 Labs: Lab Results 01/07/23 01/07/23 Range/Units 21:13 22:51 Sodium Cancelled Potassium Cancelled Chloride Cancelled Carbon Dioxide Cancelled Anion Gap Cancelled BUN Cancelled Creatinine Cancelled Estim Creat Clear Calc Cancelled Estimated GFR Cancelled Random Glucose Cancelled Calcium Cancelled Total Bilirubin Cancelled AST Cancelled ALT Cancelled Alkaline Phosphatase Cancelled Total Protein Cancelled Albumin Cancelled COVID-19 (YIN) Negative (Negative) COVID-19 Clin Com See Note Discharge Plan Discharge Clinical Impression: Acute bronchitis Patient Disposition: Home, Self-Care Instructions: Acute Bronchitis (ED) Additional Instructions: Take antibiotics and other medication as prescribed May use inhaler 2 puffs every 4-6 hours when coughing a lot Follow with PCP if not better Prescriptions: New benzonatate 200 mg capsule 200 mg PO TID PRN (Reason: cough) Qty: 20 0RF cefuroxime axetil 500 mg tablet 500 mg PO BID 7 Days Qty: 14 0RF prednisone 20 mg tablet 40 mg PO DAILY Qty: 10 0RF albuterol sulfate [ProAir HFA] 90 mcg/actuation HFA aerosol inhaler 2 puff inhalation Q4-6H PRN (Reason: shortness of breath or wheezing) Qty: 8.5 0RF No Action prazosin 1 mg capsule 2 mg PO BEDTIME 30 Days Qty: 60 0RF ziprasidone HCl 20 mg capsule 20 mg PO BEDTIME 30 Days Qty: 30 0RF ferrous sulfate 325 mg (65 mg iron) tablet 325 mg PO DAILY Qty: 90 3RF metoprolol succinate 25 mg tablet extended release 24 hr 25 mg PO DAILY 30 Days Qty: 90 1RF ascorbic acid (vitamin C) [Vitamin C] 500 mg tablet 500 mg PO DAILY Qty: 90 3RF imipramine HCl 25 mg tablet 25 mg PO BEDTIME Qty: 30 3RF promethazine 25 mg tablet 25 mg PO TID PRN (Reason: for nausea/vomiting) Qty: 30 3RF lisinopril-hydrochlorothiazide 20-25 mg tablet 1 tab PO DAILY Qty: 90 2RF simvastatin 10 mg tablet 10 mg PO BEDTIME Qty: 90 2RF meloxicam 7.5 mg tablet 7.5 mg PO DAILY Qty: 90 0RF dicyclomine 20 mg tablet 40 mg PO QID Qty: 240 3RF clonazepam 0.5 mg Tablet 0.5 mg PO DAILY PRN (Reason: Anxiety) fluoxetine [Prozac] 20 mg Capsule 40 mg PO DAILY Rx Instructions: Take 2 tabs PO Daily [id number] Tablet 1 tab PO DAILY albuterol sulfate [Ventolin HFA] 90 mcg/actuation HFA aerosol inhaler 2 puff inhalation Q4-6H PRN (Reason: shortness of breath or wheezing) Qty: 8.5 0RF bupropion HCl 150 mg tablet extended release 24 hr 300 mg PO QAM fluoxetine 10 mg capsule 10 mg PO QAM cholecalciferol (vitamin D3) 125 mcg (5,000 unit) capsule 125 mcg PO DAILY acetaminophen [Tylenol Extra Strength] 500 mg tablet 1,000 mg PO Q6H PRN (Reason: Pain, Mild) hydrocortisone [Proctosol HC] 2.5 % cream with perineal applicator 1 appl [place] BID Qty: 30 3RF Creon 36,000-114,000- 180,000 unit capsule,delayed release(DR/EC) 1 cap PO QID Qty: 120 6RF Rx Instructions: administer with meals and/or snacks metoclopramide HCl [Reglan] 5 mg tablet 5 mg PO QIDACHS Qty: 120 6RF Rx Instructions: Provider aware of possible interactions and is monitoring omeprazole 20 mg capsule,delayed release(DR/EC) 40 mg PO BID Qty: 180 1RF senna 8.6 mg capsule 34.4 mg PO BEDTIME Qty: 120 6RF simethicone 180 mg capsule 180 mg PO QID Qty: 120 6RF
[2023-01-07 23:27] LABS: Hematocrit 33.6 % (37.0-47.0); Hemoglobin 11.3 g/dl (12.0-16.0); Mean Corpuscular HGB Conc 33.6 g/dl (31.0-35.0); Mean Corpuscular Volume 86.4 fL (80.0-98.0); Mean Platelet Volume 11.4 fL (9.4-12.3); PLT CLUMP 1; Red Blood Count 3.89 X10*6/uL (4.20-5.50); Red Cell Distribution Width 12.8 % (11.0-16.0)
[2023-01-08] VITALS: BP 146/96; PULSE 80; RESP 16; TEMP 36.9; O2SAT 97
[2023-01-08] MEDS: Albuterol Sulfate 90 MCG 8 GM INHALER 2 PUFF INHALE (00:01)
[2023-01-08] MEDS: predniSONE 20 MG TABLET 40 MG PO (00:01)
[2023-01-08] MEDS: Benzonatate 100 MG CAPSULE 200 MG PO (00:01)
== END 2023-01-08 | disposition home or self-care (01) ==
PROVIDERS: Emergency Provider Internal Medicine; PCP Internal Medicine
DX: J20.9 Acute bronchitis, unspecified (principal); R05.9 Cough, unspecified; Z20.822 Contact with and (suspected) exposure to COVID-19; Z20.828 Contact with and (suspected) exposure to other viral communicable diseases
CPT/HCPCS: 36415; 71046; 80053; 85027; 87635; 99284

== ENCOUNTER 2023-01-25 09:50 | Outpatient (AMB) | payer OTHER, SELFPAY ==
[2023-01-25 10:12] VITALS: BP 124/70; PULSE 74; O2SAT 98; BMI 32.4
--- NOTE | 2023-01-25 10:12 | MHC.PC.OV ---
Vital Signs 01/25/23 10:12 Height 5 ft 2 in Weight 177 lb BMI 32.4 BP 124/70 Blood Pressure Location Lt brachial Position Sitting Pulse 74 Pulse Source Pulse Oximeter Pulse Oximetry (%) 98 Oxygen Delivery Method Room Air Intake Visit Reasons: PE Allergies No Known Allergies [No Known Allergies*] Allergy (Verified 01/25/23 10:13) Medication List - Last Reconciled 01/25/23 by Demi Lr MD acetaminophen (Tylenol Extra Strength) 1,000 mg PO Q6H PRN albuterol sulfate 90 mcg/actuation (Ventolin HFA) 2 puffs inhalation Q4-6H PRN ascorbic acid (vitamin C) (Vitamin C) 500 mg PO DAILY bupropion HCl 300 mg PO QAM cholecalciferol (vitamin D3) 125 mcg PO DAILY clonazepam 0.5 mg PO DAILY PRN dicyclomine 40 mg (2 x 20 mg) PO QID ferrous sulfate 325 mg PO DAILY fluoxetine (Prozac) 40 mg PO DAILY fluoxetine 20 mg PO QAM hydrocortisone 2.5% (Proctosol HC) [address] BID imipramine HCl 25 mg PO BEDTIME lactobacillus combination no.9 (Adult 50 Plus Probiotic) 4,000 mmu cells PO DAILY vfggot-vthkhgta-ualskfy 36,000-114,000- 180,000 unit (Creon) 1 cap PO QID lisinopril-hydrochlorothiazide 20-25 mg 1 tab PO DAILY meloxicam 7.5 mg PO DAILY metoclopramide HCl (Reglan) 5 mg PO QIDACHS metoprolol succinate ER 25 mg PO DAILY 30 days vemiklfzqxkx-zkakbgfa-ketrbz 1 tab PO DAILY omeprazole 40 mg (2 x 20 mg) PO BID prazosin 2 mg (2 x 1 mg) PO BEDTIME 30 days promethazine 25 mg PO TID PRN sennosides (senna) 34.4 mg (4 x 8.6 mg) PO BEDTIME simethicone 180 mg PO QID simvastatin 10 mg PO BEDTIME ziprasidone HCl 20 mg PO BEDTIME 30 days Tobacco use date assessed: 08/15/22 Dental Screening Dental Screen Date: 01/25/23 Did you have a dental visit in the last 12 months?: Yes Did you have a dental problem in the last 6 months where you did not have access to dental care?: No Was dental information given to patient?: Patient has dentist HPI PE HPI Details 57-year-old obese female status post laparoscopic sleeve gastrectomy, hypertension hypercholesterolemia impaired glucose tolerance in general as anxiety disorder last seen in April 2022. Patient is here for physical exam. Colonoscopy up-to-date mammogram due this month. Patient was recently in the ER for bronchitis. Patient was seen by the nurse practitioner in September 2022 for palpitations better with beta blockers. Patient also sees Gastroenterology for the nausea and vomiting and irritable bowel syndrome placed on dicyclomine, Creon omeprazole and Reglan. 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 Insomnia Intestinal malabsorption following gastrectomy Nausea Nausea and vomiting Neck pain Obesity (BMI 30-39.9) Polyarthralgia Polymyalgia PTSD (post-traumatic stress disorder) Rectal spasm Shoulder pain, right Snoring Vitamin D deficiency Surgical History History of bilateral breast reduction surgery (~2011) History of History of carpal tunnel release (~2001) History of colonoscopy (~2015) History of esophagogastroduodenoscopy (EGD) (~2020) History of excision of mass (~2016) History of laparoscopic adjustable gastric banding (~2010) History of neck surgery History of repair of hiatal hernia History of sleeve gastrectomy (~2016) History of tubal ligation (~2000) Hx of abdominoplasty Status post panniculectomy (~2013) Family History Father Diabetes Mother High blood pressure High cholesterol Dementia Daughter Healthy female Son No problems noted. Son High blood pressure High cholesterol Sister Cervical cancer Maternal Grandmother Cervical cancer Other Mental health disorder Social History (Updated 01/25/23 @ 10:53 by Demi Lr MD) Household Members: Children Housing: House Are you a primary elderly caregiver to a significant other at home: No Do you presently have visiting nurse or other home services: Yes ([employer]) Alcohol intake: never Patient Tobacco Use Status: Former Tobacco user Tobacco use type: Cigarette Years Smoked: 1989 e-Cigarette/Vaping Use: Never Used Second Hand Smoke Exposure: No service: No Current occupational status: disabled Cognitive needs: Yes (cane) Hearing needs: No Vision needs: Yes (glasses) Female Reproductive History Menstrual Age of Menarche: 14 Questionnaire PHQ-9 Over the last 2 weeks, how often have you been bothered by any of the following problems? 1. Little interest or pleasure in doing things: several days 2. Feeling down, depressed, or hopeless: several days 3. Trouble falling or staying asleep, or sleeping too much: several days 4. Feeling tired or having little energy: several days 5. Poor appetite or overeating: several days 6. Feeling bad about yourself - or that you are a failure or have let yourself or your family down: several days 7. Trouble concentrating on things, such as reading the newspaper or watching television: several days 8. Moving or speaking so slowly that other people could have noticed. Or the opposite - being so fidgety or restless that you have been moving around a lot more than usual: not at all 9. Thoughts that you would be better off or of hurting yourself in some way: several days Total score: 8 Depression Screening Interpretation: Positive Depression Screening Done: Yes Source: Developed by Drs. Redd Chu, Vicki Patel, Tito Álvarez and colleagues, with an educational marily from [employer]. Thrive Questionnaire Date Thrive assessed: 05/08/22 AUDIT C Alcohol Use Questionnaire (AUDIT-C) 1. How often do you have a drink containing alcohol?: Never 3. How often do you have six or more drinks on one occasion?: Never Total Score: 0 Score Reviewed/Action Taken: No ILENE-7 AMB Questionnaire ILENE-7 Date ILENE - 7 assessed: 01/25/23 Feeling nervous, anxious, or on edge: 1 = Several days Not being able to stop or control worryin = Several days Worrying too much about different things: 1 = Several days Trouble relaxin = Several days Being so restless that it is hard to sit still: 1 = Several days Becoming easily annoyed or irritable: 1 = Several days Feeling afraid as if something awful might happen: 1 = Several days Total ILENE-7 score (0-4 normal; 5-9 mild; 10-14 moderate; 15-21 severe): 7 Source: Developed by Drs. Redd Chu, Vicki Patel, Tito Álvarez and colleagues, with an educational marily from [employer]. Review of Systems Const Denies poor appetite and Denies weakness Eyes Denies no additional complaints ENT Reports Normal hearing present, Denies dizziness, Denies nasal congestion, Denies tinnitus and Denies sore throat Card Denies chest pain, Denies syncope, Denies rapid heart rate and Denies dyspnea Resp Denies cough and Denies dyspnea GI Denies change in stool character, Reports constipation, Denies diarrhea, Denies nausea and Denies vomiting Denies urinary frequency, Denies difficulty voiding and Denies dysuria Neuro Reports Normal hearing present, Denies confusion, Denies dizziness, Denies syncope and Denies weakness Psych Denies confusion Physical exam (Primary Care) Vital Signs: Last Vital Signs Pulse 74 01/25/23 10:12 BP 124/70 01/25/23 10:12 Pulse Ox 98 01/25/23 10:12 Oxygen Delivery Method Room Air 01/25/23 10:12 BMI result Body Mass Index 32.4 Tobacco/Smoking Status: Tobacco use Status Tobacco use date assessed 08/15/22 01/25/23 10:14 Patient Tobacco Use Status Never used Tobacco 01/25/23 10:14 Tobacco use type Cigarette 01/25/23 10:14 e-Cigarette/Vaping Use Never Used 01/25/23 10:14 PHQ-9: PHQ-9 Score PHQ-9: Total score 8 01/25/23 10:35 Depression Screening Interpretation: Positive Thrive Assessment: Date of Thrive Assessment Date Thrive assessed 05/08/22 01/25/23 10:14 Const General: alert and awake; No confusion Orientation/consciousness: No confusion HENMT Head: Yes normocephalic Ears: external ears normal and TM's normal bilaterally Face and sinus: Yes normal facial exam Mouth: moist mucous membranes Throat: Yes tonsils normal Eyes Conjunctivae: conjunctivae normal Pupils: Equal, round and reactive pupils present and Pupil accommodation reflex normal Direct Ophthalmoscopy: normal light reflex Neck Neck: No lymphadenopathy Thyroid: Thyroid normal Chest Chest palpation & inspection: normal inspection of the chest Resp Effort & Inspection: normal respiratory effort and no audible wheezes Auscultation: clear to auscultation bilaterally, no crackles, no wheezes and lung sounds not diminished Cardio Rate: regular rate Rhythm: regular rhythm Peripheral pulses: radial pulses present and dorsalis pedis present GI Palpation (GI): no masses Auscultation: normal bowel sounds and normoactive bowel sounds Rectal Exam - Female: deferred Skin General skin exam: no rashes or lesions noted Rashes: no rashes Neuro General: deep tendon reflexes 2+ bilaterally and No confusion Cranial nerves: Yes Equal, round and reactive pupils present, Yes Midline tongue present, Yes Normal hearing present and Yes Ability to bilaterally elevate shoulders present Cognition (Neuro): normal cognition Gait exam (Neuro): Normal gait present Motor exam (neuro): 5/5 motor strength present throughout Deep tendon reflexes (DTR's): Right brachioradialis reflex intensity grade: 2+, Left brachioradialis reflex intensity grade: 2+, Right patellar reflex intensity grade: 2+ and Left patellar reflex intensity grade: 2+ Extrem General: No edema Office Procedures Flu Questionnaire Does the patient have a severe egg allergy?: No Does the patient have severe life threatening allergies?: No Does the patient have a fever or illness today?: No Has the patient ever had Guillain-Florence Syndrome?: No Has the patient ever had any past reaction to a flu shot?: No Immunizations flu vacc [id number] 6mos up(PF) 60 mcg(15 mcgx4)/0.5 mL IM syringe Performing Provider: Demi Lr MD [facility] Administered by: Shy Fay CMA on 01/25/23 10:35 Dose Route Admin Location Dispensed Lot Number Expiration Date NDC Legal Researcher 0.5 mL IM Left Deltoid 0.5 mL [id number] 10/21/23 [id number] [employer] VIS Given Date VIS Provided VIS Publication Date 01/25/23 Single Vaccine 20 Eligibility Eligibility Date Funding Source Not VFC Eligible 01/25/23 Private Assessment and Plan Assessment & Plan (1) Annual physical exam: Code(s): Z00.00 - Encounter for general adult medical examination without abnormal findings (2) Irritable bowel syndrome: Code(s): K58.9 - Irritable bowel syndrome without diarrhea Plan: Patient follows up with Gastroenterology placed on metoclopramide dicyclomine (3) HTN (hypertension): Code(s): I10 - Essential (primary) hypertension Qualifiers: Hypertension type: essential hypertension Qualified Code(s): I10 - Essential (primary) hypertension Plan: Continue with blood pressure medication. Decrease salt intake and exercise (4) Hypercholesterolemia: Code(s): E78.00 - Pure hypercholesterolemia, unspecified Plan: Avoid fried foods, chicken skin, eggs, butter margarine, pastries and meat. Be it pork or beef they have a lot of cholesterol LDL goal of less than 130 and triglyceride of less than 150 (5) Impaired glucose tolerance: Code(s): R73.02 - Impaired glucose tolerance (oral) Plan: Decrease the amount of carbohydrate intake, pasta, bread, rice and potatoes are all sugar and that is aside from all the sweet stuff, remember that fruits are good but they are Sweet also. (6) Anemia: Code(s): D64.9 - Anemia, unspecified Qualifiers: Anemia type: unspecified type Qualified Code(s): D64.9 - Anemia, unspecified Plan: Stable and chronic (7) GERD (gastroesophageal reflux disease): Code(s): K21.9 - Gastro-esophageal reflux disease without esophagitis Qualifiers: Esophagitis presence: without esophagitis Qualified Code(s): K21.9 - Gastro-esophageal reflux disease without esophagitis Plan: Avoid the foods that causes that usually spicy foods, tomato products, juices, coffee, soda and foods that your sensitive to. After eating do not lie down, allow 3-4 hours before in lie down. And keep the head of bed above 30 degrees to avoid the acid from going up. (8) S/P laparoscopic sleeve gastrectomy: Onset Date: ~2016 Comment: (s/p LSG 2017 Dr. Rojo) Code(s): Z98.84 - Bariatric surgery status (9) PTSD (post-traumatic stress disorder): Comment: [facility] counselling once a week psychiatrist Q 2 months Code(s): F43.10 - Post-traumatic stress disorder, unspecified Plan: Continue to follow-up with counseling and psychiatry Orders: Orders Free T4 (Free Thyroxine) 2 Months D64.9 - Anemia, unspecified Vitamin B12 and Folate 2 Months D64.9 - Anemia, unspecified Lipid Panel 2 Months D64.9 - Anemia, unspecified, E78.00 - Pure hypercholesterolemia, unspecified Ferritin 2 Months D64.9 - Anemia, unspecified Influenza [id number] Immunization Today Z23 - Encounter for immunization Complete Blood Count Auto Diff 2 Months D64.9 - Anemia, unspecified IRON PROFILE 2 Months D64.9 - Anemia, unspecified Thyroid Stimulating Hormone 2 Months D64.9 - Anemia, unspecified Reticulocyte Count 2 Months D64.9 - Anemia, unspecified Vitamin D 25-OH Total 2 Months K21.9 - Gastro-esophageal reflux disease without esophagitis Comprehensive Met. Panel 2 Months K21.9 - Gastro-esophageal reflux disease without esophagitis Coding Level of Care Code Est Pt Prev Care 40-64y([id number]) Diagnoses Annual physical exam Z00.00 Irritable bowel syndrome K58.9 Essential hypertension I10 Hypertension type: essential hypertension Hypercholesterolemia E78.00 Impaired glucose tolerance R73.02 Anemia, unspecified type D64.9 Anemia type: unspecified type Gastroesophageal reflux disease without esophagitis K21.9 Esophagitis presence: without esophagitis S/P laparoscopic sleeve gastrectomy Z98.84 PTSD (post-traumatic stress disorder) F43.10
== END 2023-01-25 11:18 | disposition home or self-care (01) ==
PROVIDERS: Visit Provider Internal Medicine
DX: Z00.00 Encounter for general adult medical examination without abnormal findings (principal); K58.9 Irritable bowel syndrome, unspecified; I10 Essential (primary) hypertension; Z23 Encounter for immunization; E78.00 Pure hypercholesterolemia, unspecified; R73.02 Impaired glucose tolerance (oral); D64.9 Anemia, unspecified; K21.9 Gastro-esophageal reflux disease without esophagitis; Z98.84 Bariatric surgery status; F43.10 Post-traumatic stress disorder, unspecified
CPT/HCPCS: 90471; 90686; 99396

== ENCOUNTER 2023-02-28 07:59 | Outpatient (AMB) | payer OTHER, SELFPAY ==
--- NOTE | 2023-02-28 08:02 | MHC.OFFVIS ---
Intake Vital Signs 02/28/23 08:05 Height 5 ft 2 in Weight 180 lb BMI 32.9 BP 130/76 Pulse 84 Pulse Source Pulse Oximeter Pulse Oximetry (%) 99 Oxygen Delivery Method Room Air Intake Visit Reasons: NPV-Other symptoms-LVM Intake Note: Patient presents for new patient evaluation. Patient states I have a lot of confusion I'm very forgetful and I have headaches my mom had dementia so my PCP wanted me to get evaluated for that.. Allergies No Known Allergies [No Known Allergies*] Allergy (Verified 02/28/23 08:06) Medication List - Last Reconciled 02/28/23 by CARLIN Robison acetaminophen (Tylenol Extra Strength) 1,000 mg PO Q6H PRN albuterol sulfate 90 mcg/actuation (Ventolin HFA) 2 puffs inhalation Q4-6H PRN ascorbic acid (vitamin C) (Vitamin C) 500 mg PO DAILY bupropion HCl 300 mg PO QAM cholecalciferol (vitamin D3) 125 mcg PO DAILY clonazepam 0.5 mg PO DAILY PRN dicyclomine 40 mg (2 x 20 mg) PO QID ferrous sulfate 325 mg PO DAILY fluoxetine (Prozac) 40 mg PO DAILY fluoxetine 20 mg PO QAM hydrocortisone 2.5% (Proctosol HC) 1 appl [place] BID imipramine HCl 25 mg PO BEDTIME lactobacillus combination no.9 (Adult 50 Plus Probiotic) 4,000 mmu cells PO DAILY skzamb-dujpkubo-dmyhbzm 36,000-114,000- 180,000 unit (Creon) 1 cap PO QID lisinopril-hydrochlorothiazide 20-25 mg 1 tab PO DAILY meloxicam 7.5 mg PO DAILY metoclopramide HCl (Reglan) 5 mg PO QIDACHS metoprolol succinate ER 25 mg PO DAILY 30 days trzsyuvlhion-cahvbssj-qudngw 1 tab PO DAILY omeprazole 40 mg (2 x 20 mg) PO BID prazosin 2 mg (2 x 1 mg) PO BEDTIME 30 days promethazine 25 mg PO TID PRN sennosides (senna) 34.4 mg (4 x 8.6 mg) PO BEDTIME simethicone 180 mg PO QID simvastatin 10 mg PO BEDTIME ziprasidone HCl 20 mg PO BEDTIME 30 days HPI HPI Comments History of Present Illness Details Right-handed 57-yr-old female presents for neurological evaluation of: worsening cognitive difficulties. PMH includes: HTN, HLD, impaired glucose tolerance, GI s/s (bloating, abd pain), anxiety/depression, sleep difficulties. Pt reports about 6 months ago she started noticing increased forgetfulness, which she feels is progressing. She reports word finding difficulties in [place] or Palauan- her 2nd language. She has had moments were she did not remember where the light switch or gas pedal was in the car. She states she can pay her bills, but keeps needs to keep a list. She may lose allen or other things. She has handed over her bank card, as she does not want to go to the stores, so her boyfriend does the shopping. Has had increasing anxiety about being in crowds or in dark places, such as the grocery store or movie theater. She does repeat herself, but thinks it is just a mom thing . She can leave the stove on. She is prone to worry- worse since the pandemic and recent world events. For instance, when her 25 yo leaves his nightshift work- he has to call her every time. She has forgotten how to use her laptop- states it is now very confusing, however she used to know how to use it. She sees a therapist and has a psychiatrist- through [facility] [place]. She recalls that she developed depression and anxiety when she accidentally became with her last child at age 34 while she was taking care of her sisters 6 children as well, and worsened when the baby was born sick. At that time, she was having episodes of leaving the stove on. Patient was born in [place] and moved to the in mid-. Patient reports normal, gestation, , and early development. She states she was a good student. She graduated from high school. She did a few years of college in [place], but had to drop out d/t cost. Once she moved to [facility], she started again at [employer] but dropped out d/t family stress. 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 She stopped driving and working a couple of years ago d/t being legally blind. She currently lives w/ 3 of her grown children. Her mother from Alzheimer's at age 82, initial s/s started in her 60s. Patient endorses: Episodes of spacing out, snoring, poor sleep, fatigue, h/o nightmares w/ waking up shaking, vivid dreams- sees herself being strangled by the sheets. Brief intense occipital headaches, can have mx in a day, occurs most days. Has neck tightness. GI s/s And patient denies: Concussion, seizure, Head CT, August 2022- negative. 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 Nausea and vomiting Rectal spasm Abdominal cramping Diarrhea Esophageal dysmotility Constipation History of colon polyps (~2015) Incarcerated hiatal hernia Nausea Snoring Hypersomnolence Intestinal malabsorption following gastrectomy Shoulder pain, right Neck pain Polyarthralgia Impaired glucose tolerance Cervical radiculopathy Hypercholesterolemia Obesity (BMI 30-39.9) Insomnia Vitamin D deficiency PTSD (post-traumatic stress disorder) Polymyalgia HTN (hypertension) GERD (gastroesophageal reflux disease) Surgical History History of repair of hiatal hernia History of History of sleeve gastrectomy (~2016) History of laparoscopic adjustable gastric banding (~2010) History of bilateral breast reduction surgery (~2011) History of esophagogastroduodenoscopy (EGD) (~2020) Hx of abdominoplasty History of excision of mass (~2016) History of colonoscopy (~2015) Status post panniculectomy (~2013) History of carpal tunnel release (~2001) History of neck surgery History of tubal ligation (~2000) Family History Father Diabetes Mother High blood pressure High cholesterol Dementia Daughter Healthy female Son No problems noted. Son High blood pressure High cholesterol Sister Cervical cancer Maternal Grandmother Cervical cancer Other Mental health disorder Social History Household Members: Children Housing: House Are you a primary care information associate to a significant other at home: No Do you presently have visiting nurse or other home services: Yes ([facility]) Alcohol intake: current Alcohol intake frequency: holidays/special occasions only Patient Tobacco Use Status: Former Tobacco user Tobacco use type: Cigarette Years Smoked: stopped 1989 e-Cigarette/Vaping Use: Never Used Second Hand Smoke Exposure: No service: No Current occupational status: disabled Cognitive needs: Yes (cane) Hearing needs: No Vision needs: Yes (glasses) Female Reproductive History Menstrual Age of Menarche: 14 Review of Systems Const All systems reviewed & are unremarkable except as noted in HPI and below Physical Exam Vital Signs: Last Vital Signs Pulse 84 02/28/23 08:05 BP 130/76 02/28/23 08:05 Pulse Ox 99 02/28/23 08:05 Oxygen Delivery Method Room Air 02/28/23 08:05 BMI result Body Mass Index 32.9 Const General: cooperative and no acute distress Orientation/consciousness: patient oriented x3 HEENT Head: Yes normocephalic Resp Effort & Inspection: normal respiratory effort and able to speak in complete sentences Neuro Other: A&O- however pt could not tell me ana exact date or day of the week today or what type of place we were in. Good clock drawing- required a bit more time to draw clock hands than would eb expected and both clock hands were of equal length. General: patient oriented x3, CN's II-XI intact bilaterally and deep tendon reflexes 2+ bilaterally Gait exam (Neuro): Normal gait present Motor exam (neuro): 5/5 motor strength present throughout Psych Mental Status: mental status grossly normal Speech and movement: Normal speech and movement present Affect: normal affect Attitude: cooperative Thought process: Normal thought process present Orientation What is the (year) (season) (date) (day) (month)?: year, season and month Where are we (state) (county) (town or city) ([facility]) (floor)?: state, county, town or city and floor Registration Name of 3 unrelated objects clearly and slowly, then ask patient to repeat all 3 of them. (1st repeat determines score. Make sure they can repeat all three): object 1, object 2 and object 3 Attention & Calculation (CHOOSE ONE) Spell WORLD backwards (DLROW): 5 letters Recall Ask patient to repeat the 3 items from question #3.: object 3 Language Show patient a wristwatch & ask what it is. Repeat for pencil.: watch and pencil Ask the patient to repeat the phrase 'No ifs, ands, or buts' after you.: incorrect Ask the patient to 'take a piece of paper with their right hand' 'fold paper in half' 'place paper on floor': take paper in right hand, fold paper in half and place paper on floor Print the sentence 'CLOSE YOUR EYES' on a piece. If patient actually closes eyes then score.: followed written direction Give patient a blank piece of paper & ask to write a sentence. Score if it contains a noun & verb.: sentence contains subject and verb Ask patient to copy figure of intersecting pentagons exactly. Score if all 10 angles & 2 intersects are included.: all 10 angles present & 2 are intersected Score Score: 24 Assessment & Plan Assessment & Plan (1) Cognitive dysfunction: Comment: MMSE 24 Code(s): F09 - Unspecified mental disorder due to known physiological condition (2) Snoring: Code(s): R06.83 - Snoring (3) Difficulty sleeping: Code(s): G47.9 - Sleep disorder, unspecified (4) Fatigue: Code(s): R53.83 - Other fatigue Plan Pt's cognitive s/s may be multifactorial- MCI, early dementis, anxiety/mood d/o, polypharmacy, sleep d/o. Head CT- was unremarkable. Pt advised to undergo: EEG- to ensure no epileptic or encephalopathic processes. HST to assess for sleep apnea Labs for common etiologies of cognitive dysfunction Neuropsych evaluation to help us differentiate pt's cognitive dysfunction and identify strengths/weaknesses. f/u on review of above and in 3-4 months or sooner prn Orders: Orders RT home sleep study Today G47.9 - Sleep disorder, unspecified, R06.83 - Snoring, R53.83 - Other fatigue CRP High Sensitivity Today E78.00 - Pure hypercholesterolemia, unspecified, F09 - Unspecified mental disorder due to known physiological condition, I10 - Essential (primary) hypertension, R53.83 - Other fatigue, R73.02 - Impaired glucose tolerance (oral) Erythrocyte Sedimentation Rate Today E78.00 - Pure hypercholesterolemia, unspecified, F09 - Unspecified mental disorder due to known physiological condition, I10 - Essential (primary) hypertension, R53.83 - Other fatigue, R73.02 - Impaired glucose tolerance (oral) Methylmalonic Acid Today E78.00 - Pure hypercholesterolemia, unspecified, F09 - Unspecified mental disorder due to known physiological condition, I10 - Essential (primary) hypertension, R53.83 - Other fatigue, R73.02 - Impaired glucose tolerance (oral) EEG electroencephalogram Today F09 - Unspecified mental disorder due to known physiological condition, G47.9 - Sleep disorder, unspecified, R06.83 - Snoring, R53.83 - Other fatigue Complete Blood Count Auto Diff Today E78.00 - Pure hypercholesterolemia, unspecified, F09 - Unspecified mental disorder due to known physiological condition, I10 - Essential (primary) hypertension, R53.83 - Other fatigue, R73.02 - Impaired glucose tolerance (oral) Comprehensive Met. Panel Today E78.00 - Pure hypercholesterolemia, unspecified, F09 - Unspecified mental disorder due to known physiological condition, I10 - Essential (primary) hypertension, R53.83 - Other fatigue, R73.02 - Impaired glucose tolerance (oral) Vitamin B12 and Folate Today E78.00 - Pure hypercholesterolemia, unspecified, F09 - Unspecified mental disorder due to known physiological condition, I10 - Essential (primary) hypertension, R53.83 - Other fatigue, R73.02 - Impaired glucose tolerance (oral) TSH reflex Free T4 Today E78.00 - Pure hypercholesterolemia, unspecified, F09 - Unspecified mental disorder due to known physiological condition, I10 - Essential (primary) hypertension, R53.83 - Other fatigue, R73.02 - Impaired glucose tolerance (oral) HIV Ab/Ag Today E78.00 - Pure hypercholesterolemia, unspecified, F09 - Unspecified mental disorder due to known physiological condition, I10 - Essential (primary) hypertension, R53.83 - Other fatigue, R73.02 - Impaired glucose tolerance (oral) YANA Reflex Titer and Pattern Today E78.00 - Pure hypercholesterolemia, unspecified, F09 - Unspecified mental disorder due to known physiological condition, I10 - Essential (primary) hypertension, R53.83 - Other fatigue, R73.02 - Impaired glucose tolerance (oral) Rheumatoid Factor Today E78.00 - Pure hypercholesterolemia, unspecified, F09 - Unspecified mental disorder due to known physiological condition, I10 - Essential (primary) hypertension, R53.83 - Other fatigue, R73.02 - Impaired glucose tolerance (oral) Hemoglobin A1c Today E78.00 - Pure hypercholesterolemia, unspecified, F09 - Unspecified mental disorder due to known physiological condition, I10 - Essential (primary) hypertension, R53.83 - Other fatigue, R73.02 - Impaired glucose tolerance (oral) Homocysteine Today E78.00 - Pure hypercholesterolemia, unspecified, F09 - Unspecified mental disorder due to known physiological condition, I10 - Essential (primary) hypertension, R53.83 - Other fatigue, R73.02 - Impaired glucose tolerance (oral) Referrals Neuropsychiatry Referral F09 - Unspecified mental disorder due to known physiological condition, F41.1 - Generalized anxiety disorder, F43.10 - Post-traumatic stress disorder, unspecified, G47.9 - Sleep disorder, unspecified, R06.83 - Snoring, R53.83 - Other fatigue, Z81.8 - Family history of other mental and behavioral disorders Coding Level of Care Code New Pt Level 4 (70048) Diagnoses Cognitive dysfunction F09 Snoring R06.83 Difficulty sleeping G47.9 Fatigue R53.83
[2023-02-28 08:05] VITALS: BP 130/76; PULSE 84; O2SAT 99; BMI 32.9
== END 2023-02-28 09:11 | disposition home or self-care (01) ==
PROVIDERS: Visit Provider Nurse Practitioner Family
DX: G31.84 Mild cognitive impairment of uncertain or unknown etiology (principal); R06.83 Snoring; G47.9 Sleep disorder, unspecified; R53.83 Other fatigue
CPT/HCPCS: 99204

== ENCOUNTER → 2023-02-28 07:59 | Outpatient (BNVA) | payer OTHER, SELFPAY | PROVIDERS: Visit Provider Nurse Practitioner Family | DX: F09 Unspecified mental disorder due to known physiological condition (principal); R06.83 Snoring; R53.83 Other fatigue; G47.9 Sleep disorder, unspecified | CPT/HCPCS: 99202 ==

== ENCOUNTER 2023-03-02 09:31 | Outpatient (REF) | payer OTHER, SELFPAY ==
--- NOTE | ~2023-03-02 | MM_ITS ---
EXAMINATION: MM SCREENING DIGITAL BREAST TOMOSYNTHESIS, BILATERAL CLINICAL INFORMATION: Screening. Asymptomatic. Prior bilateral breast reduction in 2011. COMPARISON: Mammography: 02/17/2022, 02/11/2021, 11/13/2019, 08/19/2018, and dating back to 2016. TECHNIQUE: Digital breast tomosynthesis is performed in both the craniocaudal and mediolateral oblique views along with computer-aided detection (CAD). Synthesized 2D images are generated from the tomosynthesis. FINDINGS: There are scattered areas of fibroglandular density (ACR BI-RADS breast composition Category b). There are no suspicious masses, suspicious grouped calcifications, or areas of architectural distortion in either breast. Minor scarring present from prior mammoplasties. The parenchymal pattern is stable from prior exams. MM/MM tomosynthesis screening BI IMPRESSION: No mammographic evidence of malignancy. Stable benign findings. ASSESSMENT: BI-RADS BI-RADS 2 - Benign Findings RECOMMENDATION: Routine annual mammography screening. 1 year F/U This examination should not preclude the clinical evaluation of a suspicious palpable abnormality. This patient's information was entered into a reminder system with a target due date for their next mammogram.
== END 2023-03-02 09:32 | disposition home or self-care (01) ==
LOC: HO.MAMMO 09:31
PROVIDERS: Visit Provider Internal Medicine
DX: Z12.31 Encounter for screening mammogram for malignant neoplasm of breast (principal)
CPT/HCPCS: 77063; 77067

== ENCOUNTER → 2023-03-02 09:45 | Outpatient (BNV) | payer OTHER, SELFPAY | PROVIDERS: Visit Provider Radiology Diagnostic Radiology | DX: Z12.31 Encounter for screening mammogram for malignant neoplasm of breast (principal) | CPT/HCPCS: 77063; 77067 ==

== ENCOUNTER 2023-03-09 07:57 | Outpatient (REF) | payer OTHER, SELFPAY ==
--- NOTE | 2023-03-09 08:00 | EEG_ITS ---
This is a 16-channel EEG with an EKG lead. The patient is reported awake during the tracing. Background EEG rhythm is low amplitude fast with few brief episodes lasting for a second or 2 of some time left and sometime right temporal area, theta range slowing with no definite sharp wave. Photic stimulation does not produce any significant abnormality. Hyperventilation is unremarkable. Cardiac lead does not reveal any significant abnormality. IMPRESSION: Mildly abnormal EEG, though not definitively diagnostic of epilepsy. Paroxysmal bitemporal slowing was noted that sometime can be seen in patients with a complex partial seizure. MD CARLOS Escalona/LLOYD / [id number]
== END 2023-03-09 07:58 | disposition home or self-care (01) ==
LOC: HO.NEURO 07:57
PROVIDERS: PCP Internal Medicine; Visit Provider Nurse Practitioner Family
DX: F09 Unspecified mental disorder due to known physiological condition (principal); R53.83 Other fatigue; R06.83 Snoring; G47.9 Sleep disorder, unspecified
CPT/HCPCS: 95816

== ENCOUNTER 2023-03-17 10:27 | Outpatient (REF) | payer OTHER, SELFPAY ==
[2023-03-17 10:49] LABS: MANUAL DIFF FLAG NO
[2023-03-17 10:52] LABS: Basophils Percent Auto 0.7 % (0-2); Eosinophils Absolute Auto 0.1 X10*3/uL (0.0-0.4); Eosinophils Percent Auto 1.4 % (0-4); Hematocrit 36.2 % (37.0-47.0); Hemoglobin 11.8 g/dl (12.0-16.0); Imm Gran Abs Auto 0.02 X10*3/uL (0.00-0.03); Imm Gran Pct Auto 0.4 % (0.0-0.4); Lymphocytes Absolute Auto 1.7 X10*3/uL (1.2-4.9); Lymphocytes Percent Auto 30.4 % (20-40); Mean Corpuscular HGB Conc 32.6 g/dl (31.0-35.0); Mean Corpuscular Hemoglobin 28.4 pg (27.0-33.0); Mean Platelet Volume 8.5 fL (9.4-12.3); Monocytes Absolute Auto 0.6 X10*3/uL (0.1-1.2); Neutrophils Absolute Auto 3.2 x10*3/uL (2.0-8.3); Neutrophils Percent Auto 56.1 % (45-73); Platelet Count 337 X10*3/uL (160-400); Red Blood Count 4.16 X10*6/uL (4.20-5.50); Red Cell Distribution Width 12.7 % (11.0-16.0); White Blood Count 5.7 X10*3/uL (4.8-10.8)
[2023-03-17 10:53] LABS: Basophils Percent Auto 0.7 % (0-2); Eosinophils Absolute Auto 0.1 X10*3/uL (0.0-0.4); Eosinophils Percent Auto 1.2 % (0-4); Hematocrit 36.5 % (37.0-47.0); Hemoglobin 11.9 g/dl (12.0-16.0); Imm Gran Abs Auto 0.01 X10*3/uL (0.00-0.03); Imm Gran Pct Auto 0.2 % (0.0-0.4); Immature Retic Fraction 14.6 % (3.0-15.9); Lymphocytes Absolute Auto 1.8 X10*3/uL (1.2-4.9); Lymphocytes Percent Auto 31.6 % (20-40); Mean Corpuscular HGB Conc 32.6 g/dl (31.0-35.0); Mean Corpuscular Hemoglobin 28.8 pg (27.0-33.0); Mean Corpuscular Volume 88.4 fL (80.0-98.0); Mean Platelet Volume 8.8 fL (9.4-12.3); Monocytes Absolute Auto 0.6 X10*3/uL (0.1-1.2); Monocytes Percent Auto 10.2 % (2-11); Neutrophils Absolute Auto 3.3 x10*3/uL (2.0-8.3); Neutrophils Percent Auto 56.1 % (45-73); Platelet Count 338 X10*3/uL (160-400); Red Blood Count 4.13 X10*6/uL (4.20-5.50); Red Cell Distribution Width 12.6 % (11.0-16.0); Retic HGB Equivalent 32.9 pg (30.0-35.0); Reticulocyte Percent 1.8 % (0.5-1.8); Reticulocytes Absolute 0.074 X10*6/uL (0.026-0.095); White Blood Count 5.8 X10*3/uL (4.8-10.8)
[2023-03-17 11:16] LABS: Alanine Aminotransferase 31 U/L (0-31); Albumin Level 4.3 g/dL (3.5-5.0); Alkaline Phosphatase 70 U/L (39-117); Anion Gap 13 (12-20); Aspartate Amino Transferase 30 U/L (5-31); Bilirubin Total 0.4 mg/dL (0.0-1.0); Blood Urea Nitrogen 16 mg/dL (9-16); Calcium 9.5 mg/dL (8.4-10.2); Carbon Dioxide 27 mmol/L (22-29); Chloride 105 mmol/L (96-108); Estimated Glomerular Filt Rate 49; Glucose Random 84 mg/dL (60-115); Potassium 4.5 mmol/L (3.3-5.1); Sodium 140 mmol/L (135-145); Total Protein 7.1 g/dL (6.5-8.0)
[2023-03-17 11:18] LABS: Alanine Aminotransferase 34 U/L (0-31); Albumin Level 4.4 g/dL (3.5-5.0); Alkaline Phosphatase 71 U/L (39-117); Anion Gap 14 (12-20); Aspartate Amino Transferase 31 U/L (5-31); Bilirubin Total 0.4 mg/dL (0.0-1.0); Blood Urea Nitrogen 16 mg/dL (9-16); Calcium 9.8 mg/dL (8.4-10.2); Carbon Dioxide 27 mmol/L (22-29); Chloride 105 mmol/L (96-108); Cholesterol 225 mg/dL (<200); Estimated Glomerular Filt Rate 49; Glucose Random 86 mg/dL (60-115); HDL Cholesterol 61 mg/dL (>40); Iron 72 mcg/dL (30-160); LDL Cholesterol Calculated 109 mg/dL (<100); Percent Iron Saturation 28 % (15-50); Potassium 4.6 mmol/L (3.3-5.1); Sodium 141 mmol/L (135-145); Total Iron Binding Capacity 254 mcg/dL (228-428); Total Protein 7.2 g/dL (6.5-8.0); Triglycerides 276 mg/dL (<150); Unsaturated Iron Binding 182 ug/dL
[2023-03-17 11:27] LABS: Rheumatoid Factor < 13.0 IU/mL (<15.0)
[2023-03-17 11:29] LABS: Estimated Average Glucose 117 mg/dL; Hemoglobin A1c % 5.7 % (<6.0)
[2023-03-17 11:30] LABS: Erythrocyte Sedimentation Rate 14 MM/HR (0-20)
[2023-03-17 11:35] LABS: Ferritin 310 ng/mL (10-250); Free T4 (Free Thyroxine) 0.85 ng/dL (0.71-1.85); Vitamin D 25-OH Total 87.3 ng/mL (>30)
[2023-03-17 11:48] LABS: Folate 11.2 ng/mL (> or = 4.0); Vitamin B12 787 pg/mL (200-900)
[2023-03-17 11:49] LABS: Folate 11.6 ng/mL (> or = 4.0); Vitamin B12 821 pg/mL (200-900)
[2023-03-19 08:09] LABS: HIV Num 1 9.43 S/CO (0.00-0.99)
[2023-03-19 10:10] LABS: HIV AB/AG Nonreactive (Nonreactive); HIV Num 2 0.06 S/CO; HIV Num 3 0.06 S/CO
[2023-03-19 13:02] LABS: CRP High Sensitivity 4.7 mg/L
[2023-03-19 17:23] LABS: Homocysteine 11.3 umol/L (<10.4)
[2023-03-21 08:58] LABS: Methylmalonic Acid 73 nmol/L (87-318)
[2023-03-21 09:33] LABS: Anti Nuclear Antibody Screen NEGATIVE (NEGATIVE)
== END 2023-03-17 10:28 | disposition home or self-care (01) ==
LOC: HO.LAB 10:27
PROVIDERS: PCP Internal Medicine; Visit Provider Nurse Practitioner Family
DX: Z11.4 Encounter for screening for human immunodeficiency virus [HIV] (principal); R53.83 Other fatigue; E78.00 Pure hypercholesterolemia, unspecified; R73.02 Impaired glucose tolerance (oral); D64.9 Anemia, unspecified; K21.9 Gastro-esophageal reflux disease without esophagitis; F09 Unspecified mental disorder due to known physiological condition; I12.9 Hypertensive chronic kidney disease with stage 1 through stage 4 chronic kidney disease, or unspecified chronic kidney disease; N18.30 Chronic kidney disease, stage 3 unspecified
CPT/HCPCS: 36415; 80053; 80061; 82306; 82607; 82728; 82746; 83036; 83090; 83540; 83921; 84439; 84443; 85025; 85045; 85652; 86038; 86141; 86431; 87389

== ENCOUNTER 2023-04-06 15:02 | Emergency (ER) | payer OTHER, SELFPAY ==
--- NOTE | ~2023-04-06 | XR_ITS ---
EXAMINATION: XR CHEST CLINICAL INFORMATION: Chest pain COMPARISON: None available. TECHNIQUE: 2 views of the chest were obtained. FINDINGS: No significant abnormality is noted involving the heart, lungs, mediastinum, bony thorax or soft tissues. XR/XR chest 2V IMPRESSION: Unremarkable chest examination.
--- NOTE | 2023-04-06 15:04 | ECG_ITS ---
Test Reason : cx pain Blood Pressure : / mmHG Vent. Rate : 083 BPM Atrial Rate : 083 BPM P-R Int : 130 ms QRS Dur : 080 ms QT Int : 382 ms P-R-T Axes : 021 -13 031 degrees QTc Int : 448 ms Normal sinus rhythm Minimal voltage criteria for LVH, may be normal variant ( R in aVL ) Borderline ECG When compared with ECG of 28-AUG-2022 13:44, No significant change was found Referred By: Tari Keene Electronically Signed By:Walker Yepez
[2023-04-06 15:16] VITALS: BP 145/98; PULSE 86; RESP 20; TEMP 36.6; O2SAT 100; BMI 32.4
--- NOTE | 2023-04-06 15:16 | ED.GENADULT ---
HPI - General Adult General Chief complaint: Chest Pain Stated complaint: chest pain, back pain Time Seen by Provider: 04/06/23 16:15 Source: patient Mode of arrival: ambulatory Limitations: no limitations History of Present Illness HPI narrative: 57 yo female with PMH of HTN, HLD, IBS, dysphagia, GERD, gastrectomy with malabsorption, legally blind, PTSD, anxiety, here with c/o 2 weeks of sharp chest pain to back with bending over. Now today sharp chest pain with deep breaths radiating to back - no OCP use no hx of VTE. She denies infectious symptoms. Has had hiatal hernia repair. Denies abdominal pain or issues eating, normal BM no n/v. Pain is not triggered by food. MD complaint: chest pain Onset (ago): week(s) (2) Location: chest Radiation: back Severity: moderate Quality: stabbing Pain Consistency: intermittent Relieving factors: none Exacerbating factors: other (inspiration) Associated symptoms: shortness of breath Treatments prior to arrival: none Related Data Home Medications Medication Instructions Recorded Confirmed bupropion HCl 150 mg 24 hr tablet, 300 mg PO QAM 03/05/20 02/28/23 extended release clonazepam 0.5 mg tablet 0.5 mg PO DAILY PRN Anxiety 06/08/20 02/28/23 fluoxetine 20 mg capsule (Prozac) 40 mg PO DAILY 06/08/20 02/28/23 xntyvrmmhqtk-kbrxmmpd-ywwxck tablet 1 tab PO DAILY 06/08/20 02/28/23 cholecalciferol (vitamin D3) 125 125 mcg PO DAILY 12/09/21 02/28/23 mcg (5,000 unit) capsule acetaminophen 500 mg tablet 1,000 mg PO Q6H PRN Pain, Mild 12/23/21 02/28/23 (Tylenol Extra Strength) fluoxetine 10 mg capsule 20 mg PO QAM 01/25/23 02/28/23 lactobacillus combination no.9 4 4,000 mmu cells PO DAILY 01/25/23 02/28/23 billion cell capsule (Adult 50 Plus Probiotic) Previous Rx's Medication Instructions Recorded hydrocortisone 2.5 % topical cream 1 appl SD BID hemorrhoids #30 grams 05/05/22 with perineal applicator (Proctosol HC) prazosin 1 mg capsule 2 mg (2 x 1 mg) PO BEDTIME 30 days 01/13/23 #60 caps ziprasidone HCl 20 mg capsule 20 mg PO BEDTIME 30 days #30 caps 05/05/22 ferrous sulfate 325 mg (65 mg 325 mg PO DAILY #90 caps 07/07/22 iron) tablet albuterol sulfate 90 mcg/actuation 2 puff inhalation Q4-6H PRN 08/15/22 aerosol inhaler (Ventolin HFA) shortness of breath or wheezing #8.5 grams metoclopramide HCl 5 mg tablet 5 mg PO QIDACHS #120 tabs 09/06/22 (Reglan) ascorbic acid (vitamin C) 500 mg 500 mg PO DAILY #90 caps 11/03/22 tablet (Vitamin C) lisinopril 20 1 tab PO DAILY #90 caps 12/04/22 mg-hydrochlorothiazide 25 mg tablet simvastatin 10 mg tablet 10 mg PO BEDTIME #90 tabs 12/04/22 dicyclomine 20 mg tablet 40 mg (2 x 20 mg) PO QID for 01/01/23 abdominal pain #240 tabs omeprazole 20 mg capsule,delayed 40 mg (2 x 20 mg) PO BID #180 caps 02/01/23 release meloxicam 7.5 mg tablet 7.5 mg PO DAILY #90 tabs 02/02/23 metoprolol succinate 25 mg 25 mg PO DAILY 30 days #90 tabs 02/28/23 tablet,extended release 24 hr imipramine HCl 25 mg tablet 25 mg PO BEDTIME #30 tabs 03/19/23 promethazine 25 mg tablet 25 mg PO TID PRN for 03/19/23 nausea/vomiting #30 tabs sennosides 8.6 mg capsule (senna) 34.4 mg (4 x 8.6 mg) PO BEDTIME 03/29/23 #120 caps simethicone 180 mg capsule 180 mg PO QID #120 caps 03/29/23 kqrbmv-xhiokbry-jlgpppt 1 cap PO QID #120 caps 03/30/23 36,000-114,000-180,000 unit capsule,delay rel (Creon) Allergies Allergy/AdvReac Type Severity Reaction Status Date / Time No Known Allergies Allergy Verified 02/28/23 08:06 [No Known Allergies*] Review of Systems Review of Systems: Constitutional : No Weight loss, No Fever, No Chills ENT/Mouth : No sore throat, No Rhinorrhea Eyes: No Eye Pain, No Swelling Cardiovascular : pos Chest Pain, pos SOB, no Dyspnea on Exertion, No Orthopnea, No Edema, No Palpitations Respiratory : No Cough, No Sputum Gastrointestinal : no Nausea, No Vomiting, No Diarrhea, No abdominal Pain, No Hematochezia, No Melena Genitourinary : No Dysuria, No Urinary Frequency Musculoskeletal : No joint pain, No Myalgias, No Joint Swelling Skin : No Skin Lesions, No rash Neuro : No Weakness, No Numbness, No Dizziness, No Headache Psych : No Anxiety/Panic, No Depression All other systems reviewed and are negative ON LICENSE OF [facility] Past Medical History Attestation statement: The following information was validated with the patient. 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 Nausea and vomiting Rectal spasm Abdominal cramping Diarrhea Esophageal dysmotility Constipation History of colon polyps (~2015) Incarcerated hiatal hernia Nausea Snoring Hypersomnolence Intestinal malabsorption following gastrectomy Shoulder pain, right Neck pain Polyarthralgia Cervical radiculopathy Hypercholesterolemia Obesity (BMI 30-39.9) Insomnia Vitamin D deficiency PTSD (post-traumatic stress disorder) Polymyalgia HTN (hypertension) GERD (gastroesophageal reflux disease) Surgical History History of repair of hiatal hernia History of History of sleeve gastrectomy (~2016) History of laparoscopic adjustable gastric banding (~2010) History of bilateral breast reduction surgery (~2011) History of esophagogastroduodenoscopy (EGD) (~2020) Hx of abdominoplasty History of excision of mass (~2016) History of colonoscopy (~2015) Status post panniculectomy (~2013) History of carpal tunnel release (~2001) History of neck surgery History of tubal ligation (~2000) Family History Family History Father Diabetes Mother High blood pressure High cholesterol Dementia Daughter Healthy female Son No problems noted. Son High blood pressure High cholesterol Sister Cervical cancer Maternal Grandmother Cervical cancer Other Mental health disorder Social History Social History Household Members: Children Housing: House Are you a primary overnight caregiver to a significant other at home: No Do you presently have visiting nurse or other home services: Yes ([employer]) Alcohol intake: current Alcohol intake frequency: holidays/special occasions only Patient Tobacco Use Status: Former Tobacco user Tobacco use type: Cigarette Years Smoked: 1989 e-Cigarette/Vaping Use: Never Used Second Hand Smoke Exposure: No Advance Directives: No Advance Directives Information Provided: Yes service: No Current occupational status: disabled Cognitive needs: Yes (cane) Hearing needs: No Vision needs: Yes (glasses) Physical Exam ED Vital Signs: Vital Signs - 24 hr 04/06/23 15:16 Temperature 97.8 F Pulse Rate 86 Respiratory Rate 20 Blood Pressure 145/98 H Pulse Oximetry 100 Oxygen Delivery Method Room Air BMI result Body Mass Index 32.4 Appearance: Alert. Oriented X3. No acute distress. Eyes: Pupils equal, round and reactive to light. ENT: Pharynx normal. Neck: Normal inspection. Neck supple. CVS: Normal heart rate and rhythm. Pulses normal. Respiratory: No respiratory distress. Breath sounds normal. Abdomen: Soft and nontender. no pain to palpation Skin: Skin warm and dry. Normal skin color. Normal skin turgor. Extremities: No lower extremity edema. No calf ttp Neuro: Oriented X 3. No motor deficit. No sensory deficit. Course Course Course Narrative: RME performed by Tari Keene PA-C. Patient is a 57 year old assigned female at presenting to the emergency department with chest pain. Labs, imaging, swabs ordered. Patient placed back in the waiting room pending room availability and results. Medical Decision Making Medical Decision Making MDM Narrative: 57 yo female with PMH of HTN, HLD, IBS, dysphagia, GERD, gastrectomy with malabsorption, legally blind, PTSD, anxiety, here with c/o sharp pleuritic chest pain and pain with bending over that has worsened x 2 weeks. No associated infectious symptoms, no GI issues like n/v. At this time has had prior hiatal hernia repair will obtain EKG, troponin x 1, ddimer for VTE but also likely CT chest given pain and hx of surgical repair. Given timeline and distal pulses intact dissection seems unlikely. Differential Diagnosis Differential Diagnoses: The differential diagnosis associated with the presentation includes GERD, atypical chest pain, VTE Admission/Observation Consideration of admission/observation: Escalation of care including admission/observation considered does not want CT scan wants to go home at this time Lab Data MDM Lab Attestation statement: I reviewed the patient's lab results. 04/06/23 15:58 04/06/23 15:58 Labs: Lab Results 04/06/23 04/06/23 Range/Units 15:57 15:58 WBC 6.3 (4.8-10.8) X10*3/uL RBC 4.24 (4.20-5.50) X10*6/uL Hgb 12.1 (12.0-16.0) g/dl Hct 36.7 L (37.0-47.0) % MCV 86.6 (80.0-98.0) fL MCH 28.5 (27.0-33.0) pg MCHC 33.0 (31.0-35.0) g/dl RDW 12.7 (11.0-16.0) % Plt Count 314 (160-400) X10*3/uL MPV 8.8 L (9.4-12.3) fL Immature Gran % (Auto) 0.3 (0.0-0.4) % Neut % (Auto) 54.6 (45-73) % Lymph % (Auto) 32.2 (20-40) % Martin % (Auto) 11.3 H (2-11) % Eos % (Auto) 1.1 (0-4) % Baso % (Auto) 0.5 (0-2) % Lymph # (Auto) 2.0 (1.2-4.9) X10*3/uL Martin # (Auto) 0.7 (0.1-1.2) X10*3/uL Eos # (Auto) 0.1 (0.0-0.4) X10*3/uL Baso # (Auto) 0.0 (0.0-0.2) X10*3/uL Abs Immat Gran (auto) 0.02 (0.00-0.03) X10*3/uL Absolute Neuts (auto) 3.4 (2.0-8.3) x10*3/uL Absolute Nucleated RBC 0.000 (0.0-0.012) X10*3/uL Nucleated RBC % (auto) 0.0 (0.0-0.2) /100WBC PT 10.1 L (11.1-13.3) SEC INR 0.8 L (0.9-1.1) APTT 31.2 (26.0-36.4) SEC D-Dimer High Sensitivty < 150 NG/ML Sodium 141 (135-145) mmol/L Potassium 4.2 (3.3-5.1) mmol/L Chloride 104 (96-108) mmol/L Carbon Dioxide 29 (22-29) mmol/L Anion Gap 12 (12-20) BUN 17 H (9-16) mg/dL Creatinine 1.15 (0.5-1.4) mg/dL Estim Creat Clear Calc 52.3 Estimated GFR 48 Random Glucose 89 (60-115) mg/dL Calcium 9.8 (8.4-10.2) mg/dL Magnesium 2.0 (1.6-2.6) mg/dL Total Bilirubin 0.2 (0.0-1.0) mg/dL AST 35 H (5-31) U/L ALT 34 H (0-31) U/L Alkaline Phosphatase 79 (39-117) U/L Troponin I High Sens < 2.7 (<3.5-17.0) ng/L B-Natriuretic Peptide 16 (<100) pg/mL Total Protein 7.3 (6.5-8.0) g/dL Albumin 4.4 (3.5-5.0) g/dL Lipase 44 (8-78) U/L Influenza Type A (PCR) NEGATIVE (Negative) Influenza Type B (PCR) NEGATIVE (Negative) RSV RNA Qual (PCR) NEGATIVE (Negative) SARS-CoV-2 RNA (RT-PCR) NEGATIVE (Negative) Independent Interpretation I performed an independent interpretation of an: EKG and Plain X-Ray (normal ) Interpretation: Rate: 81 Rhythm: NSR Crooks: left, LVH Normal P waves. Normal FARHANA. Normal QRS complex. ST T wave : no REBA, normal qTC: normal prior studies: no acute ischemia The study has been interpreted contemporaneously by me. . Radiology Impression Discussion of test interpretation with radiology: I have reviewed the radiologist's reading. External Record Review External record reviewed: Office record Tests considered The following testing was considered but not selected: CT scan but she refused Discharge Plan Discharge Clinical Impression: Chest pain Qualifiers: Chest pain type: chest pain on breathing Qualified Code(s): R07.1 - Chest pain on breathing Patient Disposition: Home, Self-Care Instructions: Chest Pain (ED) Additional Instructions: chest xray, heart tests, blood clot test and flu covid rsv negative. you were offered CT chest to evaluate further but refused - please return for worsening pain, symptoms, or any other concerns. Prescriptions: No Action prazosin 1 mg capsule 2 mg PO BEDTIME 30 Days Qty: 60 0RF ziprasidone HCl 20 mg capsule 20 mg PO BEDTIME 30 Days Qty: 30 0RF ferrous sulfate 325 mg (65 mg iron) tablet 325 mg PO DAILY Qty: 90 3RF ascorbic acid (vitamin C) [Vitamin C] 500 mg tablet 500 mg PO DAILY Qty: 90 3RF lisinopril-hydrochlorothiazide 20-25 mg tablet 1 tab PO DAILY Qty: 90 2RF simvastatin 10 mg tablet 10 mg PO BEDTIME Qty: 90 2RF dicyclomine 20 mg tablet 40 mg PO QID Qty: 240 3RF omeprazole 20 mg capsule,delayed release(DR/EC) 40 mg PO BID Qty: 180 2RF meloxicam 7.5 mg tablet 7.5 mg PO DAILY Qty: 90 0RF metoprolol succinate 25 mg tablet extended release 24 hr 25 mg PO DAILY 30 Days Qty: 90 1RF imipramine HCl 25 mg tablet 25 mg PO BEDTIME Qty: 30 3RF promethazine 25 mg tablet 25 mg PO TID PRN (Reason: for nausea/vomiting) Qty: 30 3RF senna 8.6 mg capsule 34.4 mg PO BEDTIME Qty: 120 6RF simethicone 180 mg capsule 180 mg PO QID Qty: 120 6RF Creon 36,000-114,000- 180,000 unit capsule,delayed release(DR/EC) 1 cap PO QID Qty: 120 6RF clonazepam 0.5 mg Tablet 0.5 mg PO DAILY PRN (Reason: Anxiety) fluoxetine [Prozac] 20 mg Capsule 40 mg PO DAILY Rx Instructions: Take 2 tabs PO Daily [id number]-ktnkgbnd-kzdnyv Tablet 1 tab PO DAILY Adult 50 Plus Probiotic 4 billion cell capsule 4,000 mmu cells PO DAILY Rx Instructions: administer with a meal albuterol sulfate [Ventolin HFA] 90 mcg/actuation HFA aerosol inhaler 2 puff inhalation Q4-6H PRN (Reason: shortness of breath or wheezing) Qty: 8.5 0RF bupropion HCl 150 mg tablet extended release 24 hr 300 mg PO QAM fluoxetine 10 mg capsule 20 mg PO QAM cholecalciferol (vitamin D3) 125 mcg (5,000 unit) capsule 125 mcg PO DAILY acetaminophen [Tylenol Extra Strength] 500 mg tablet 1,000 mg PO Q6H PRN (Reason: Pain, Mild) hydrocortisone [Proctosol HC] 2.5 % cream with perineal applicator 1 appl SD BID Qty: 30 3RF metoclopramide HCl [Reglan] 5 mg tablet 5 mg PO QIDACHS Qty: 120 6RF Rx Instructions: Provider aware of possible interactions and is monitoring
[2023-04-06 16:05] LABS: MANUAL DIFF FLAG NO
[2023-04-06 16:07] LABS: Basophils Percent Auto 0.5 % (0-2); Eosinophils Absolute Auto 0.1 X10*3/uL (0.0-0.4); Eosinophils Percent Auto 1.1 % (0-4); Hematocrit 36.7 % (37.0-47.0); Hemoglobin 12.1 g/dl (12.0-16.0); Imm Gran Abs Auto 0.02 X10*3/uL (0.00-0.03); Imm Gran Pct Auto 0.3 % (0.0-0.4); Lymphocytes Percent Auto 32.2 % (20-40); Mean Corpuscular Hemoglobin 28.5 pg (27.0-33.0); Mean Corpuscular Volume 86.6 fL (80.0-98.0); Mean Platelet Volume 8.8 fL (9.4-12.3); Monocytes Absolute Auto 0.7 X10*3/uL (0.1-1.2); Monocytes Percent Auto 11.3 % (2-11); Neutrophils Absolute Auto 3.4 x10*3/uL (2.0-8.3); Neutrophils Percent Auto 54.6 % (45-73); Platelet Count 314 X10*3/uL (160-400); Red Blood Count 4.24 X10*6/uL (4.20-5.50); Red Cell Distribution Width 12.7 % (11.0-16.0); White Blood Count 6.3 X10*3/uL (4.8-10.8)
[2023-04-06 16:22] LABS: INTERNATIONAL NORM RATIO 0.8 (0.9-1.1); Prothrombin Time 10.1 SEC (11.1-13.3)
[2023-04-06 16:24] LABS: Partial Thromboplastin Time 31.2 SEC (26.0-36.4)
[2023-04-06 16:28] LABS: Alanine Aminotransferase 34 U/L (0-31); Albumin Level 4.4 g/dL (3.5-5.0); Alkaline Phosphatase 79 U/L (39-117); Anion Gap 12 (12-20); Aspartate Amino Transferase 35 U/L (5-31); Bilirubin Total 0.2 mg/dL (0.0-1.0); Blood Urea Nitrogen 17 mg/dL (9-16); Calcium 9.8 mg/dL (8.4-10.2); Carbon Dioxide 29 mmol/L (22-29); Chloride 104 mmol/L (96-108); Creatinine Clr Calc Pharmacy 52.3; Estimated Glomerular Filt Rate 48; Glucose Random 89 mg/dL (60-115); Potassium 4.2 mmol/L (3.3-5.1); Sodium 141 mmol/L (135-145); Total Protein 7.3 g/dL (6.5-8.0)
[2023-04-06 16:34] LABS: B Type Natriuretic Peptide 16 pg/mL (<100)
[2023-04-06 16:40] LABS: Troponin-I High Sensitivity < 2.7 ng/L (<3.5-17.0)
[2023-04-06 16:58] LABS: D Dimer High Sensitivity < 150 NG/ML
--- NOTE | 2023-04-06 17:12 | PC.NURSE ---
t/w went in to place IV in pt and hang fluids. pt questioned what for and pt was told for a CT scan with contrast. pt replied with I don't need that, I was told by my doctor that I've been getting too much imaging lately and it's too much radiation . aware and will speak with pt.
[2023-04-06 17:14] LABS: Influenza A PCR NEGATIVE (Negative); Influenza B PCR NEGATIVE (Negative); Resp Syncy Virus RNA Qual PCR NEGATIVE (Negative); SARS COV2 PCR INHOUSE NEGATIVE (Negative)
[2023-04-06 17:18] LABS: Lipase 44 U/L (8-78)
[2023-04-06 17:53] VITALS: BP 151/92; PULSE 78; RESP 18; TEMP 36.8; O2SAT 100
== END 2023-04-06 18:05 | disposition home or self-care (01) ==
PROVIDERS: Physician Assistant Medical; Emergency Provider Emergency Medicine; PCP Internal Medicine
DX: R07.89 Other chest pain (principal); M54.50 Low back pain, unspecified; R06.02 Shortness of breath; Z20.822 Contact with and (suspected) exposure to COVID-19; Z20.828 Contact with and (suspected) exposure to other viral communicable diseases; Z87.891 Personal history of nicotine dependence; Z79.899 Other long term (current) drug therapy
CPT/HCPCS: 0241U; 71046; 80053; 83690; 83735; 83880; 84484; 85025; 85379; 85610; 85730; 93005; 99283

== ENCOUNTER → 2023-04-06 15:04 | Outpatient (BNV) | payer OTHER, SELFPAY | PROVIDERS: Emergency Provider Emergency Medicine; PCP Internal Medicine; Visit Provider Internal Medicine Cardiovascular Disease | DX: R07.9 Chest pain, unspecified (principal) | CPT/HCPCS: 93010 ==

== ENCOUNTER → 2023-05-10 10:02 | Outpatient (REF) | payer OTHER, SELFPAY | LOC: HO.SL 10:02 | PROVIDERS: PCP Internal Medicine; Visit Provider Nurse Practitioner Family | DX: R06.83 Snoring (principal); G47.9 Sleep disorder, unspecified; R53.83 Other fatigue | CPT/HCPCS: 95806 ==

== ENCOUNTER → 2023-05-10 10:21 | Outpatient (BNV) | payer OTHER, SELFPAY | PROVIDERS: PCP Internal Medicine; Visit Provider Psychiatry & Neurology Neurology | DX: R06.83 Snoring (principal) | CPT/HCPCS: 95806 ==

== ENCOUNTER 2023-05-23 14:32 | Outpatient (AMB) | payer OTHER, SELFPAY ==
[2023-05-23 14:36] VITALS: BP 130/82; PULSE 81; O2SAT 97; BMI 33.5
--- NOTE | 2023-05-23 14:36 | MHC.PC.OV ---
Vital Signs 05/23/23 14:36 Height 5 ft 2 in Weight 183 lb 0.6 oz BMI 33.5 BP 130/82 Blood Pressure Location Lt brachial Position Sitting Pulse 81 Pulse Source Pulse Oximeter Pulse Oximetry (%) 97 Oxygen Delivery Method Room Air Intake Visit Reasons: Spot on tongue, was told it might be cancerous Instrumental Musician Required: No Allergies No Known Allergies [No Known Allergies*] Allergy (Verified 05/23/23 14:36) Medication List - Last Reconciled 05/23/23 by Demi Lr MD acetaminophen (Tylenol Extra Strength) 1,000 mg PO Q6H PRN albuterol sulfate 90 mcg/actuation (Ventolin HFA) 2 puffs inhalation Q4-6H PRN ascorbic acid (vitamin C) (Vitamin C) 500 mg PO DAILY bupropion HCl 300 mg PO QAM cholecalciferol (vitamin D3) 125 mcg PO DAILY clonazepam 0.5 mg PO DAILY PRN dicyclomine 40 mg (2 x 20 mg) PO QID ferrous sulfate 325 mg PO DAILY fluoxetine (Prozac) 40 mg PO DAILY fluoxetine 20 mg PO QAM folic acid 1 mg PO DAILY hydrocortisone 2.5% (Proctosol HC) 1 appl [place] BID imipramine HCl 25 mg PO BEDTIME lactobacillus combination no.9 (Adult 50 Plus Probiotic) 4,000 mmu cells PO DAILY lkpney-hkjvnjsg-xiazzbg 36,000-114,000- 180,000 unit (Creon) 1 cap PO QID lisinopril-hydrochlorothiazide 20-25 mg 1 tab PO DAILY meloxicam 7.5 mg PO DAILY metoclopramide HCl (Reglan) 5 mg PO QIDACHS metoprolol succinate ER 25 mg PO DAILY 30 days woeeawsgqnnn-mkntgomp-rghrsq 1 tab PO DAILY omeprazole 40 mg (2 x 20 mg) PO BID prazosin 2 mg (2 x 1 mg) PO BEDTIME 30 days promethazine 25 mg PO TID PRN sennosides (senna) 34.4 mg (4 x 8.6 mg) PO BEDTIME simethicone 180 mg PO QID simvastatin 10 mg PO BEDTIME ziprasidone HCl 20 mg PO BEDTIME 30 days Tobacco use date assessed: 05/23/23 HPI Spot on tongue, was told it might be cancerous HPI Details 57-year-old obese female with a history of hypertension hypercholesterolemia impaired glucose tolerance anemia GERD history of laparoscopic sleeve gastrectomy and PTSD coming in for follow-up. Last seen in January 2023. Patient's colonoscopy is up-to-date mammogram is up-to-date. Review of the notes ER visit in March 2023 for chest pain workup done chest pain more respiratory. Patient had an EEG done February 2023 mildly abnormal EEG not definitive diagnostic of epilepsy has paroxysmal bitemporal slowing concern about complex partial seizure. PAtient will be seeing neurology 05/31/2023. seeing dentis yesterday andnoted a L tongue growth and concern on this. 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 Nausea and vomiting Rectal spasm Abdominal cramping Diarrhea Esophageal dysmotility Constipation History of colon polyps (~2015) Incarcerated hiatal hernia Nausea Snoring Hypersomnolence Intestinal malabsorption following gastrectomy Shoulder pain, right Neck pain Polyarthralgia Cervical radiculopathy Hypercholesterolemia Obesity (BMI 30-39.9) Insomnia Vitamin D deficiency PTSD (post-traumatic stress disorder) Polymyalgia HTN (hypertension) GERD (gastroesophageal reflux disease) Surgical History History of repair of hiatal hernia History of History of sleeve gastrectomy (~2016) History of laparoscopic adjustable gastric banding (~2010) History of bilateral breast reduction surgery (~2011) History of esophagogastroduodenoscopy (EGD) (~2020) Hx of abdominoplasty History of excision of mass (~2016) History of colonoscopy (~2015) Status post panniculectomy (~2013) History of carpal tunnel release (~2001) History of neck surgery History of tubal ligation (~2000) Family History Father Diabetes Mother High blood pressure High cholesterol Dementia Daughter Healthy female Son No problems noted. Son High blood pressure High cholesterol Sister Cervical cancer Maternal Grandmother Cervical cancer Other Mental health disorder Social History Household Members: Children Housing: House Are you a primary child care associate teacher to a significant other at home: No Do you presently have visiting nurse or other home services: Yes ([employer]) Alcohol intake: current Alcohol intake frequency: holidays/special occasions only Patient Tobacco Use Status: Former Tobacco user Tobacco use type: Cigarette Years Smoked: 1989 e-Cigarette/Vaping Use: Never Used Second Hand Smoke Exposure: No service: No Current occupational status: disabled Cognitive needs: Yes (cane) Hearing needs: No Vision needs: Yes (glasses) Female Reproductive History Menstrual Age of Menarche: 14 Questionnaire Thrive Questionnaire Date Thrive assessed: 05/08/22 AUDIT C Alcohol Use Questionnaire (AUDIT-C) 1. How often do you have a drink containing alcohol?: Never 3. How often do you have six or more drinks on one occasion?: Never Total Score: 0 Score Reviewed/Action Taken: No ILENE-7 AMB Questionnaire ILENE-7 Date ILENE - 7 assessed: 01/25/23 Source: Developed by Drs. Redd Chu, Vicki Patel, Tito Álvarez and colleagues, with an educational marily from [employer]. Physical exam (Primary Care) Vital Signs: Last Vital Signs Pulse 81 05/23/23 14:36 BP 130/82 05/23/23 14:36 Pulse Ox 97 05/23/23 14:36 Oxygen Delivery Method Room Air 05/23/23 14:36 Care Plan Goal for BP management: L side of tongue lesion whitish patch 5 mm BMI result Body Mass Index 33.5 Tobacco/Smoking Status: Tobacco use Status Tobacco use date assessed 05/23/23 05/23/23 14:37 Patient Tobacco Use Status Former Tobacco user 05/23/23 14:37 Tobacco use type Cigarette 05/23/23 14:37 e-Cigarette/Vaping Use Never Used 05/23/23 14:37 Thrive Assessment: Date of Thrive Assessment Date Thrive assessed 05/08/22 05/23/23 14:37 Const General: alert; No acute distress HENMT Mouth/tongue images: 1. white patch L side of the tongue Eyes Conjunctivae: conjunctivae normal Resp Auscultation: clear to auscultation bilaterally Cardio Rate: regular rate Rhythm: regular rhythm GI Inspection: Yes normal to inspection Extrem General: Yes normal to inspection and No edema Assessment and Plan Assessment & Plan (1) Cognitive dysfunction: Comment: MMSE 24 Code(s): F09 - Unspecified mental disorder due to known physiological condition Plan: Patient has seen Neurology and advised workup. So far EEG came up as abnormal question of seizures. Reminded about sleep study have a follow-up with Neurology (2) HTN (hypertension): Code(s): I10 - Essential (primary) hypertension Qualifiers: Hypertension type: essential hypertension Qualified Code(s): I10 - Essential (primary) hypertension Plan: Continue with blood pressure medication. Decrease salt intake and exercise patient takes lisinopril hydrochlorothiazide 20/25 once a day metoprolol 25 mg once a day (3) Hypercholesterolemia: Code(s): E78.00 - Pure hypercholesterolemia, unspecified Plan: Avoid fried foods, chicken skin, eggs, butter margarine, pastries and meat. Be it pork or beef they have a lot of cholesterol LDL goal of less than 130 and triglyceride of less than 150 patient on simvastatin 10 mg once a day (4) GERD (gastroesophageal reflux disease): Code(s): K21.9 - Gastro-esophageal reflux disease without esophagitis Qualifiers: Esophagitis presence: without esophagitis Qualified Code(s): K21.9 - Gastro-esophageal reflux disease without esophagitis Plan: Avoid the foods that causes that usually spicy foods, tomato products, juices, coffee, soda and foods that your sensitive to. After eating do not lie down, allow 3-4 hours before in lie down. And keep the head of bed above 30 degrees to avoid the acid from going up. (5) S/P laparoscopic sleeve gastrectomy: Onset Date: ~2016 Comment: (s/p LSG 2017 Dr. Rojo) Code(s): Z98.84 - Bariatric surgery status Plan: Noted on the blood work having low methylmalonic acid with elevated homocystine. Will start on folic acid. (6) Generalized anxiety disorder: Comment: Dr. Mendieta Q month(June 2021) CHD Code(s): F41.1 - Generalized anxiety disorder Plan: Patient continues to follow-up with psychiatry and counseling (7) Tongue lesion: Code(s): K14.8 - Other diseases of tongue Plan: Referral to ENT done Orders: Referrals Ear/Nose/Throat Referral K14.8 - Other diseases of tongue Medications: New folic acid 1 mg PO DAILY 30 tabs 5RF Z98.84 - Bariatric surgery status Coding Level of Care Code Est Pt Level 4 (81686) Diagnoses Cognitive dysfunction F09 Essential hypertension I10 Hypertension type: essential hypertension Hypercholesterolemia E78.00 Gastroesophageal reflux disease without esophagitis K21.9 Esophagitis presence: without esophagitis S/P laparoscopic sleeve gastrectomy Z98.84 Generalized anxiety disorder F41.1 Tongue lesion K14.8
== END 2023-05-23 15:36 | disposition home or self-care (01) ==
PROVIDERS: PCP Internal Medicine; Visit Provider Internal Medicine
DX: F09 Unspecified mental disorder due to known physiological condition (principal); I10 Essential (primary) hypertension; E78.00 Pure hypercholesterolemia, unspecified; K21.9 Gastro-esophageal reflux disease without esophagitis; Z98.84 Bariatric surgery status; F41.1 Generalized anxiety disorder; K14.8 Other diseases of tongue
CPT/HCPCS: 99214

== ENCOUNTER 2023-05-30 14:30 | Outpatient (AMB) | payer OTHER, SELFPAY ==
[2023-05-30 14:35] VITALS: BP 142/93; PULSE 119; BMI 33.7
--- NOTE | 2023-05-30 14:35 | A.OFFVIS_ITS ---
Intake Vital Signs 05/30/23 14:35 Height 5 ft 2 in Weight 184 lb 4.903 oz BMI 33.7 BP 142/93 H Blood Pressure Location Lt brachial Position Sitting Pulse 119 H Intake Visit Reasons: 6 month follow up GERD Intake Note: Patient returns to in office visit today in 6 months follow up of GERD. CC: Patient reports she continues doing well. She is not vomiting as often. Well Blower Required: No Accompanied by: Self / Same As Patient Allergies No Known Allergies [No Known Allergies*] Allergy (Verified 05/30/23 14:48) HPI 6 month follow up GERD HPI Details Assessment & Plan (1) Nausea and vomiting: Code(s): R11.2 - Nausea with vomiting, unspecified Plan: She is feeling much better, and is not vomiting as much although it still will happen occasionally - fred if she eats too fast. She credits the Creon as she thinks that this is thing that has helped her the most. She is unsure if she is taking the reglan. Check next visit and I refilled anyway. She continues on her omeprazole 40 mg twice a day her senna at bedtime simethicone and imipramine at bedtime.. Return office visit in 6 months. (2) GERD (gastroesophageal reflux diseas e): Code(s): K21.9 - Gastro-esophageal reflux disease without esophagitis Qualifiers: Esophagitis presence: without esophagitis Qualified Code(s): K21.9 - Gastro-esophageal reflux disease without esophagitis (3) Irritable bowel syndrome: Code(s): K58.9 - Irritable bowel syndrome without diarrhea (4) S/P laparoscopic sleeve gastrectomy: Onset Date: ~2016 Comment: (s/p LSG 2017 Dr. Rojo) Code(s): Z98.84 - Bariatric surgery status (5) Intestinal malabsorption following g astrectomy: Code(s): K91.2 - Postsurgical malabsorption, not elsewhere classified; Z90.3 - Acquired absence of stomach [part of] Medications: Refilled dicyclomine 40 mg (2 x 20 mg) PO QID 240 tabs 3R F abdominal pain R10.9 - Unspecifie d abdominal pain, R19.7 - Diarrhea, unspecified ofiats-dbsnupkj-jp ylase 36,000-114,0 00- 180,000 unit ( Creon) administ er with meals and/ or snacks 1 cap PO QID 120 caps 6RF K58.9 - Irritable bowel syndrome wit hout diarrhea metoclopramide HCl (Reglan) Provi robson aware of possi ble interactions a nd is monitoring 5 mg PO QIDACHS 1 20 tabs 6RF R11.2 - Nausea wit h vomiting, unspec ified omeprazole 40 mg (2 x 20 mg) PO BID 180 caps 1R F K21.9 - Gastro-eso phageal reflux dis ease without esoph agitis sennosides (senna) 34.4 mg (4 x 8.6 m g) PO BEDTIME 120 caps 6RF K59.00 - Constipat ion, unspecified simethicone 180 mg PO QID 120 caps 6RF dicyclomine 40 mg (2 x 20 mg) PO QID 240 tabs 6R F abdominal pain R10.9 - Unspecifie d abdominal pain, R19.7 - Diarrhea, unspecified TODAY'S VISIT She says my stomach is good, but ana rest of my body has problems. She just was evaluated by neurology for confusion and clouded thinking, and they did an EEG and she was told she was having mini seizures. Also, she is desaturating at night and may have ELKIN, and she has spots on her tongue that need to be biopsied to r/o cancer. She still is uncertain whether she is taking the metoclopramide but I wrote down for her so she can check. I also explained that this is not just for nausea but keeps the whole GI system moving so it is important that she take it scheduled. If she has not taking this it could also explain her lingering upper abdominal pain. She continues on her omeprazole 40 mg twice a day her senna at bedtime simethicone and imipramine at bedtime.. 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 Nausea and vomiting Rectal spasm Abdominal cramping Diarrhea Esophageal dysmotility Constipation History of colon polyps (~2015) Incarcerated hiatal hernia Nausea Snoring Hypersomnolence Intestinal malabsorption following gastrectomy Shoulder pain, right Neck pain Polyarthralgia Cervical radiculopathy Hypercholesterolemia Obesity (BMI 30-39.9) Insomnia Vitamin D deficiency PTSD (post-traumatic stress disorder) Polymyalgia HTN (hypertension) GERD (gastroesophageal reflux disease) Surgical History History of repair of hiatal hernia History of History of sleeve gastrectomy (~2016) History of laparoscopic adjustable gastric banding (~2010) History of bilateral breast reduction surgery (~2011) History of esophagogastroduodenoscopy (EGD) (~2020) Hx of abdominoplasty History of excision of mass (~2016) History of colonoscopy (~2015) Status post panniculectomy (~2013) History of carpal tunnel release (~2001) History of neck surgery History of tubal ligation (~2000) Family History Father Diabetes Mother High blood pressure High cholesterol Dementia Daughter Healthy female Son No problems noted. Son High blood pressure High cholesterol Sister Cervical cancer Maternal Grandmother Cervical cancer Other Mental health disorder Social History Household Members: Children Housing: House Are you a primary medicare coordinator to a significant other at home: No Do you presently have visiting nurse or other home services: Yes ([employer]) Alcohol intake: current Alcohol intake frequency: holidays/special occasions only Patient Tobacco Use Status: Former Tobacco user Tobacco use type: Cigarette Years Smoked: stopped 1989 e-Cigarette/Vaping Use: Never Used Second Hand Smoke Exposure: No service: No Current occupational status: disabled Cognitive needs: Yes (cane) Hearing needs: No Vision needs: Yes (glasses) Female Reproductive History Menstrual Age of Menarche: 14 Review of Systems Const Denies fatigue, Denies fever(s), Denies night sweats, Denies poor appetite, Reports weight gain and Denies weight loss Eyes Details: glasses Reports requires corrective lenses ENT Reports Normal hearing present, Denies dental pain, Denies dysphagia, Denies hearing loss, Denies mouth pain, Denies odynophagia, Denies throat swelling, Denies tongue swelling and Reports other (Dentition adequate) Card Reports no additional complaints Resp Reports no additional complaints GI Details: Denies abdominal pain, Denies melena, Reports bloating, Denies hematochezia, Reports constipation, Reports GI cramping, Denies dysphagia, Denies excessive flatus, Reports early satiety, Reports heartburn, Denies diarrhea, Reports nausea, Denies odynophagia, Reports vomiting and Denies hematemesis Skin/Breast Denies pruritus, Denies lesions, Denies rash and Denies jaundice Neuro Reports Normal hearing present, Denies Abnormal speech present and Reports memory loss Psych Reports anxiety and Reports memory loss Endo Denies fatigue Aller/Immun Denies throat swelling and Denies tongue swelling Physical Exam Vital Signs: Last Vital Signs Pulse 119 H 05/30/23 14:35 BP 142/93 H 05/30/23 14:35 BMI result Body Mass Index 33.7 Const General: cooperative, no acute distress, well developed and well groomed Nutritional Appearance: well nourished and obese Orientation/consciousness: oriented to person, oriented to place and oriented to time Limitations: No language barrier HEENT Head: Yes normocephalic and Yes atraumatic Eyes General: appearance normal, both eyes and all related structures Pupils: Equal, round and reactive pupils present Neck Neck: Yes normal visual inspection and Yes no lymphadenopathy Thyroid: Thyroid normal Resp Effort & Inspection: normal respiratory effort and able to speak in complete sentences Auscultation: clear to auscultation bilaterally Cardio Rate: regular rate Rhythm: regular rhythm Heart sounds: Normal, physiologic split S2 sound present Peripheral pulses: radial pulses present and posterior tibial pulses present GI Inspection: No distended, No Abdominal panniculus present and Yes obesity Palpation (GI): Soft to palpation, nontender, no guarding, not rigid and No hepatosplenomegaly present Percussion: Yes normal to percussion Auscultation: normal bowel sounds Rectal Exam - Female: deferred Skin General skin exam: no rashes or lesions noted, turgor normal, skin not dry, no jaundice, No spider nevi and no striae Rashes: no rashes Nails: normal Neuro General: oriented to person, oriented to place and oriented to time Cranial nerves: Yes Equal, round and reactive pupils present and Yes Normal hearing present Speech: No Abnormal speech present Extrem General: Yes normal to inspection, No clubbing, No cyanosis and No edema Psych Appearance: grossly normal and well kempt Mental Status: mental status grossly normal Speech and movement: Normal speech and movement present Affect: normal affect Attitude: cooperative Thought process: Normal thought process present and not confabulating Thought content: Normal thought content present Insight: Limited insight present (Psych) Judgement: Limited judgement present (Psych) Assessment & Plan Assessment & Plan (1) GERD (gastroesophageal reflux disease): Code(s): K21.9 - Gastro-esophageal reflux disease without esophagitis Qualifiers: Esophagitis presence: without esophagitis Qualified Code(s): K21.9 - Gastro-esophageal reflux disease without esophagitis (2) Irritable bowel syndrome: Code(s): K58.9 - Irritable bowel syndrome without diarrhea (3) Intestinal malabsorption following gastrectomy: Code(s): K91.2 - Postsurgical malabsorption, not elsewhere classified; Z90.3 - Acquired absence of stomach [part of] (4) Cognitive dysfunction: Comment: MMSE 24 Code(s): F09 - Unspecified mental disorder due to known physiological condition Plan She says my stomach is good, but ana rest of my body has problems. She just was evaluated by neurology for confusion and clouded thinking, and they did an EEG and she was told she was having mini seizures. Also, she is desaturating at night and may have ELKIN, and she has spots on her tongue that need to be biopsied to r/o cancer. She still is uncertain whether she is taking the metoclopramide but I wrote down for her so she can check. I also explained that this is not just for nausea but keeps the whole GI system moving so it is important that she take it scheduled. If she has not taking this it could also explain her lingering upper abdominal pain. She continues on her omeprazole 40 mg twice a day her senna at bedtime simethicone and imipramine at bedtime.. Return office visit in 6 weeks Medications: New omeprazole 40 mg PO BID 30 days 60 caps 6RF K21.9 - Gastro-esophageal reflux disease without esophagitis Refilled dicyclomine 40 mg (2 x 20 mg) PO QID 240 tabs 3RF for abdominal pain R10.9 - Unspecified abdominal pain, R19.7 - Diarrhea, unspecified simethicone 180 mg PO QID 120 caps 6RF metoclopramide HCl 5 mg PO QID 120 tabs 6RF R11.2 - Nausea with vomiting, unspecified wuomsa-ykmrhhne-lhruytz 36,000-114,000- 180,000 unit (Creon) 1 cap PO QID 120 caps 6RF K58.9 - Irritable bowel syndrome without diarrhea imipramine HCl 25 mg PO BEDTIME 30 tabs 6RF K58.9 - Irritable bowel syndrome without diarrhea sennosides (senna) 34.4 mg (4 x 8.6 mg) PO BEDTIME 120 caps 6RF K59.00 - Constipation, unspecified lxigye-mtgjxagg-faxzogg 36,000-114,000- 180,000 unit (Creon) 1 cap PO QID 120 caps 6RF K58.9 - Irritable bowel syndrome without diarrhea Discontinued omeprazole Discontinued Reason: Doctor's Order 40 mg (2 x 20 mg) PO BID 180 caps 2RF K21.9 - Gastro-esophageal reflux disease without esophagitis Coding Level of Care Code Est Pt Level 3 (14370) Diagnoses Gastroesophageal reflux disease without esophagitis K21.9 Esophagitis presence: without esophagitis Irritable bowel syndrome K58.9 Intestinal malabsorption following gastrectomy K91.2; Z90.3 Cognitive dysfunction F09
== END 2023-05-30 15:04 | disposition home or self-care (01) ==
PROVIDERS: PCP Internal Medicine; Visit Provider Nurse Practitioner
DX: K21.9 Gastro-esophageal reflux disease without esophagitis (principal); K58.9 Irritable bowel syndrome, unspecified; K91.2 Postsurgical malabsorption, not elsewhere classified; Z90.3 Acquired absence of stomach [part of]; F09 Unspecified mental disorder due to known physiological condition
CPT/HCPCS: 99213

== ENCOUNTER → 2023-05-30 14:30 | Outpatient (BNVA) | payer OTHER, SELFPAY | PROVIDERS: PCP Internal Medicine; Visit Provider Nurse Practitioner | DX: K21.9 Gastro-esophageal reflux disease without esophagitis (principal); K58.9 Irritable bowel syndrome, unspecified; K91.2 Postsurgical malabsorption, not elsewhere classified; F09 Unspecified mental disorder due to known physiological condition; Z90.3 Acquired absence of stomach [part of] | CPT/HCPCS: 99212 ==

== ENCOUNTER 2023-05-31 13:40 | Outpatient (AMB) | payer OTHER, SELFPAY ==
--- NOTE | 2023-05-31 14:03 | MHC.OFFVIS ---
Intake Vital Signs 05/31/23 14:04 Height 5 ft 2 in Weight 185 lb BMI 33.8 Intake Visit Reasons: 3 mnts f/u for other symptoms-Conf Intake Note: Patient presents for 3 months. my doctor told about my EEG results he wanted me to follow up and not miss my appointment Allergies No Known Allergies [No Known Allergies*] Allergy (Verified 05/31/23 14:18) Medication List - Last Reconciled 05/31/23 by CARLIN Robison acetaminophen (Tylenol Extra Strength) 1,000 mg PO Q6H PRN albuterol sulfate 90 mcg/actuation (Ventolin HFA) 2 puffs inhalation Q4-6H PRN ascorbic acid (vitamin C) (Vitamin C) 500 mg PO DAILY bupropion HCl 300 mg PO QAM cholecalciferol (vitamin D3) 125 mcg PO DAILY clonazepam 0.5 mg PO DAILY PRN dicyclomine 40 mg (2 x 20 mg) PO QID ferrous sulfate 325 mg PO DAILY fluoxetine (Prozac) 40 mg PO DAILY fluoxetine 20 mg PO QAM folic acid 1 mg PO DAILY hydrocortisone 2.5% (Proctosol HC) 1 appl ME BID imipramine HCl 25 mg PO BEDTIME lactobacillus combination no.9 (Adult 50 Plus Probiotic) 4,000 mmu cells PO DAILY vmxevm-xxnzspem-ondiwwh 36,000-114,000- 180,000 unit (Creon) 1 cap PO QID lisinopril-hydrochlorothiazide 20-25 mg 1 tab PO DAILY meloxicam 7.5 mg PO DAILY metoclopramide HCl 5 mg PO QID metoprolol succinate ER 25 mg PO DAILY 30 days frcnmxmvdnsa-uguvsaxt-keepid 1 tab PO DAILY omeprazole 40 mg PO BID 30 days prazosin 2 mg (2 x 1 mg) PO BEDTIME 30 days promethazine 25 mg PO TID PRN sennosides (senna) 34.4 mg (4 x 8.6 mg) PO BEDTIME simethicone 180 mg PO QID simvastatin 10 mg PO BEDTIME ziprasidone HCl 20 mg PO BEDTIME 30 days HPI HPI Comments History of Present Illness Details 57-yr-old female presents for f/u visit. Pt had a ER evaluation in March for chest pain, per patient she was told it was anxiety. Pt reports her memory issues are the same. No, patient did not recall that she had had issues are about initially until prompted about it. EEG revealed proximal bitemporal slowing. She denies any history of known seizure. She denies waking up having bitten her tongue or bloody secretions from her mouth. Of note, her dentist has noticed white patches along her lateral tongue. Patient states since then, she has had white patches in the inside of her cheeks. Her HST was 4.4/hr w/ O2 naidr 87% (avergae SpO2 95%, SpO2 < 90% x's , 2 min). Lab workup was notable for mild anemia with low methylmalonic acid, high homocystine level, normal folate and vitamin B12 levels. PCP has started patient on folic acid, which patient started. May have occasional episodes of stabbing headaches in the occipital region. 03/09/23, EEG: IMPRESSION: Mildly abnormal EEG, though not definitively diagnostic of epilepsy. Paroxysmal bitemporal slowing was noted that sometime can be seen in patients with a complex partial seizure. 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 Nausea and vomiting Rectal spasm Abdominal cramping Diarrhea Esophageal dysmotility Constipation History of colon polyps (~2015) Incarcerated hiatal hernia Nausea Snoring Hypersomnolence Intestinal malabsorption following gastrectomy Shoulder pain, right Neck pain Polyarthralgia Cervical radiculopathy Hypercholesterolemia Obesity (BMI 30-39.9) Insomnia Vitamin D deficiency PTSD (post-traumatic stress disorder) Polymyalgia HTN (hypertension) GERD (gastroesophageal reflux disease) Surgical History History of repair of hiatal hernia History of History of sleeve gastrectomy (~2016) History of laparoscopic adjustable gastric banding (~2010) History of bilateral breast reduction surgery (~2011) History of esophagogastroduodenoscopy (EGD) (~2020) Hx of abdominoplasty History of excision of mass (~2016) History of colonoscopy (~2015) Status post panniculectomy (~2013) History of carpal tunnel release (~2001) History of neck surgery History of tubal ligation (~2000) Family History Father Diabetes Mother High blood pressure High cholesterol Dementia Daughter Healthy female Son No problems noted. Son High blood pressure High cholesterol Sister Cervical cancer Maternal Grandmother Cervical cancer Other Mental health disorder Social History Household Members: Children Housing: House Are you a primary clinical care manager to a significant other at home: No Do you presently have visiting nurse or other home services: Yes ([employer]) Alcohol intake: current Alcohol intake frequency: holidays/special occasions only Patient Tobacco Use Status: Former Tobacco user Tobacco use type: Cigarette Years Smoked: 1989 e-Cigarette/Vaping Use: Never Used Second Hand Smoke Exposure: No service: No Current occupational status: disabled Cognitive needs: Yes (cane) Hearing needs: No Vision needs: Yes (glasses) Female Reproductive History Menstrual Age of Menarche: 14 Physical Exam Vital Signs: BMI result Body Mass Index 33.8 Const General: cooperative and no acute distress Orientation/consciousness: patient oriented x3 Resp Effort & Inspection: normal respiratory effort and able to speak in complete sentences Neuro General: patient oriented x3 Cranial nerves: Yes CN's II-XII intact bilaterally Cognition (Neuro): normal cognition Psych Appearance: grossly normal Mental Status: mental status grossly normal Speech and movement: Normal speech and movement present Affect: normal affect Attitude: cooperative Assessment & Plan Assessment & Plan (1) Cognitive dysfunction: Comment: MMSE 24 Code(s): F09 - Unspecified mental disorder due to known physiological condition (2) Abnormal electroencephalogram (EEG): Comment: 03/09/23: Baseline EEG: IMPRESSION: Mildly abnormal EEG, though not definitively diagnostic of epilepsy. Paroxysmal bitemporal slowing was noted that sometime can be seen in patients with a complex partial seizure. Code(s): R94.01 - Abnormal electroencephalogram [EEG] (3) Stabbing headache: Code(s): G44.85 - Primary stabbing headache Plan Reviewed HST- inconclusive. Patient advised to undergo in-lab sleep study as scheduled. Reviewed EEG- revealed bitemporal proximal slowing, which may indicate complex partial seizure activity. Patient advised to undergo 72 hour ambulatory EEG to further assess. Patient advised to no any lapses in memory on the EEG diary. Patient advised to undergo brain MRI with and without contrast with focus on bilateral temporal regions. Reviewed labs- continue folic acid supplement. Future considerations: Trialing patient on a AED, however would like to complete workup 1st. Monitor stabbing headaches. Patient is not a candidate to do a indomethacin trial d/t history of gastric surgery. Future considerations: Pain management referral for ON block or trigger point injections. Follow-up in 3-4 months or sooner as needed. Orders: Orders MR head/brain wo/w con Today F09 - Unspecified mental disorder due to known physiological condition, R94.01 - Abnormal electroencephalogram [EEG] EEG ambulatory Today F09 - Unspecified mental disorder due to known physiological condition, R94.01 - Abnormal electroencephalogram [EEG] Coding Level of Care Code Est Pt Level 4 (45281) Diagnoses Cognitive dysfunction F09 Abnormal electroencephalogram (EEG) R94.01 Stabbing headache G44.85
[2023-05-31 14:04] VITALS: BMI 33.8
== END 2023-05-31 15:04 | disposition home or self-care (01) ==
PROVIDERS: PCP Internal Medicine; Visit Provider Nurse Practitioner Family
DX: R41.89 Other symptoms and signs involving cognitive functions and awareness (principal); R94.01 Abnormal electroencephalogram [EEG]; G44.85 Primary stabbing headache
CPT/HCPCS: 99214

== ENCOUNTER → 2023-05-31 13:40 | Outpatient (BNVA) | payer OTHER, SELFPAY | PROVIDERS: PCP Internal Medicine; Visit Provider Nurse Practitioner Family | DX: R94.01 Abnormal electroencephalogram [EEG] (principal); F09 Unspecified mental disorder due to known physiological condition; G44.85 Primary stabbing headache | CPT/HCPCS: 99212 ==

== ENCOUNTER → 2023-06-04 19:30 | Outpatient (REF) | payer OTHER, SELFPAY | LOC: HO.SL 19:30 | PROVIDERS: PCP Internal Medicine; Visit Provider Nurse Practitioner Family | DX: G47.34 Idiopathic sleep related nonobstructive alveolar hypoventilation (principal); G47.10 Hypersomnia, unspecified; R06.83 Snoring | CPT/HCPCS: 95810 ==

== ENCOUNTER → 2023-06-04 22:05 | Outpatient (BNV) | payer OTHER, SELFPAY | PROVIDERS: PCP Internal Medicine; Visit Provider Internal Medicine | DX: R06.83 Snoring (principal) | CPT/HCPCS: 95810 ==

== ENCOUNTER 2023-06-15 09:53 | Outpatient (AMB) | payer OTHER, SELFPAY ==
[2023-06-15 10:08] VITALS: BP 115/64; BMI 34.0
--- NOTE | 2023-06-15 10:08 | MHC.OFFVIS ---
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 She is doing well with no concerns. Attempting to eat a healthy diet with calcium and vitamin D, admits to eating sugars, walks her dogs. Currently not sexually active w/senior care partner. Denies any vaginal dryness or irritation. STI testing offered; she declines. Last pap smear; 2019. Last mammogram; 2022. Colonoscopy is UTD. Denies any family history of breast, ovarian or colon cancer. 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 Nausea and vomiting Rectal spasm Abdominal cramping Diarrhea Esophageal dysmotility Constipation History of colon polyps (~2015) Incarcerated hiatal hernia Nausea Snoring Hypersomnolence Intestinal malabsorption following gastrectomy Shoulder pain, right Neck pain Polyarthralgia Cervical radiculopathy Hypercholesterolemia Obesity (BMI 30-39.9) Insomnia Vitamin D deficiency PTSD (post-traumatic stress disorder) Polymyalgia HTN (hypertension) GERD (gastroesophageal reflux disease) Surgical History History of repair of hiatal hernia History of History of sleeve gastrectomy (~2016) History of laparoscopic adjustable gastric banding (~2010) History of bilateral breast reduction surgery (~2011) History of esophagogastroduodenoscopy (EGD) (~2020) Hx of abdominoplasty History of excision of mass (~2016) History of colonoscopy (~2015) Status post panniculectomy (~2013) History of carpal tunnel release (~2001) History of neck surgery History of tubal ligation (~2000) Family History Father Diabetes Mother High blood pressure High cholesterol Dementia Daughter Healthy female Son No problems noted. Son High blood pressure High cholesterol Sister Cervical cancer Maternal Grandmother Cervical cancer Other Mental health disorder Social History Household Members: Children Housing: House Are you a primary care associate to a significant other at home: No Do you presently have visiting nurse or other home services: Yes ([employer]) Alcohol intake: current Alcohol intake frequency: holidays/special occasions only Patient Tobacco Use Status: Former Tobacco user Tobacco use type: Cigarette Years Smoked: 1989 e-Cigarette/Vaping Use: Never Used Second Hand Smoke Exposure: No Patient : No service: No Current occupational status: disabled Cognitive needs: Yes (cane) Hearing needs: No Vision needs: Yes (glasses) Female Reproductive History Menstrual Age of Menarche: 14 Total pregnancies: 5 Number of Living Children: 3 Ab spontaneous: 3 Multiple births: 1 Date of last pap smear: 03/08/20 Date of Mammogram: 03/02/23 Review of Systems Const All systems reviewed & are unremarkable except as noted in HPI and below Reports as per HPI Eyes Reports no additional complaints ENT Reports no additional complaints Card Reports no additional complaints Resp Reports no additional complaints GI Reports as per HPI and Reports no additional complaints Reports as per HPI Musc Reports no additional complaints Skin/Breast Reports as per HPI Neuro Reports no additional complaints Psych Reports no additional complaints Endo Reports no additional complaints Bhanu/Lymph Reports no additional complaints Aller/Immun Reports no additional complaints Physical Exam Vital Signs: Last Vital Signs BP 115/64 06/15/23 10:08 BMI result Body Mass Index 34.0 Const General: cooperative, healthy appearing, no acute distress, well developed and alert Orientation/consciousness: patient oriented x3 HEENT Head: Yes normal to inspection Eyes General: appearance normal, both eyes and all related structures Neck Neck: Yes normal visual inspection Thyroid: Thyroid normal Chest Other: Bilateral breast reduction scarring Chest palpation & inspection: normal inspection of the chest and other (no puckering, dimpling, peau de orange, retraction, discharge, masses) Breast/axilla inspection: normal inspection of the breasts Breast/axilla palpation: normal palpation of the breasts Resp Effort & Inspection: normal respiratory effort GI Inspection: Yes normal to inspection and Yes scar Palpation (GI): Soft to palpation Rectal Exam - Female: deferred General: Yes bladder normal to palpation External Female Exam: normal external appearance and normal appearance of the urethra Speculum Exam - Vagina: normal appearance of the vagina, normal palpation, normal vaginal discharge and vagina atrophic Speculum Exam - Cervix: normal appearance of the cervix and normal palpation Bimanual exam- vagina & uterus: normal bimanual exam, normal palpation, uterine size normal, bladder normal to palpation, normal palpation and non-tender Bimanual Exam- Adnexa, other: no masses Skin General skin exam: no rashes or lesions noted Rashes: no rashes Neuro General: patient oriented x3 Cognition (Neuro): normal cognition Extrem General: Yes normal to inspection Psych Attitude: cooperative Thought process: Normal thought process present Assessment & Plan Assessment & Plan (1) Encounter for well woman exam with routine gynecological exam: Code(s): Z01.419 - Encounter for gynecological examination (general) (routine) without abnormal findings Plan Discussed: Current recommendations for pap smears per ASCCP guidelines. Breast awareness, periodic self breast exams and yearly mammogram. Maintain a healthy lifestyle, well balanced diet including Calcium 1,200 mg and Vitamin D 600 IU daily, and routine exercise. Contact the office with any postmenopausal bleeding. Patient verbalizes understanding and agrees to the plan of care. She was given opportunity to ask questions and all questions were answered to the best of my ability. 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 This note is constructed using voice recognition software. While every effort has been made to ensure accuracy, drive worker errors may have been included. Coding Level of Care Code Est Pt Prev Care 40-64y(07036) Diagnoses Encounter for well woman exam with routine gynecological exam Z01.419
== END 2023-06-15 10:39 | disposition home or self-care (01) ==
LOC: HO.HWS 09:54
PROVIDERS: PCP Internal Medicine; Visit Provider Advanced Practice Midwife
DX: Z01.419 Encounter for gynecological examination (general) (routine) without abnormal findings (principal)
CPT/HCPCS: 99396

== ENCOUNTER → 2023-06-15 09:53 | Outpatient (BNVA) | payer OTHER, SELFPAY | PROVIDERS: PCP Internal Medicine; Visit Provider Advanced Practice Midwife ==

== ENCOUNTER 2023-06-20 11:01 | Outpatient (AMB) | payer OTHER, SELFPAY ==
--- NOTE | 2023-06-20 11:05 | MHC.PC.OV ---
Vital Signs 06/20/23 11:06 Height 5 ft 2 in Weight 187 lb BMI 34.2 BP 108/62 Blood Pressure Location Rt brachial Position Sitting Respiration 16 Pulse 90 Pulse Source Pulse Oximeter Pulse Oximetry (%) 96 Oxygen Delivery Method Room Air Intake Visit Reasons: 07/04 L & R 07/18 -cataracts Both Eyes Intake Note: Dr. Lr's patient is here for a Pre-op for Cataracts Surgery scheduled with on 07/08 Left Eye and 06/20/23 for Right Eye. . Lumber Sticker Required: No Allergies No Known Allergies [No Known Allergies*] Allergy (Verified 06/20/23 11:21) Medication List - Last Reconciled 06/20/23 by DUTCH Weston-Terrence acetaminophen (Tylenol Extra Strength) 1,000 mg PO Q6H PRN ascorbic acid (vitamin C) (Vitamin C) 500 mg PO DAILY bupropion HCl 300 mg PO QAM cholecalciferol (vitamin D3) 125 mcg PO DAILY clonazepam 0.5 mg PO DAILY PRN dicyclomine 40 mg (2 x 20 mg) PO QID ferrous sulfate 325 mg PO DAILY fluoxetine (Prozac) 40 mg PO DAILY fluoxetine 20 mg PO QAM folic acid 1 mg PO DAILY imipramine HCl 25 mg PO BEDTIME lactobacillus combination no.9 (Adult 50 Plus Probiotic) 4,000 mmu cells PO DAILY [id number]-[id number] 36,000-114,000- 180,000 unit (Creon) 1 cap PO QID lisinopril-hydrochlorothiazide 20-25 mg 1 tab PO DAILY meloxicam 7.5 mg PO DAILY metoclopramide HCl 5 mg PO QID metoprolol succinate ER 25 mg PO DAILY 30 days cxvwymbrfsxe-xiommcis-ixqena 1 tab PO DAILY omeprazole 40 mg PO BID 30 days prazosin 2 mg (2 x 1 mg) PO BEDTIME 30 days promethazine 25 mg PO TID PRN sennosides (senna) 34.4 mg (4 x 8.6 mg) PO BEDTIME simethicone 180 mg PO QID simvastatin 10 mg PO BEDTIME ziprasidone HCl 20 mg PO BEDTIME 30 days Tobacco use date assessed: 05/23/23 HPI 07/04 L & R 07/18 -cataracts Both Eyes HPI Details Patient is a 49-year-old female here today for preop visit. She is due for bilateral cataract removals in June. Patient has a past medical history significant for hypertension, anemia, hyperlipidemia, PTSD, anxiety and fibromyalgia.. Patient has no history of CO, Congestive heart failure for CVA. Patient is not on any anticoagulation or anti-platelet therapy at this time. Patient's most recent EKG done in March of 2023 showing normal sinus rhythm. Otherwise patient has chronic issues have been stable. 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 Nausea and vomiting Rectal spasm Abdominal cramping Diarrhea Esophageal dysmotility Constipation History of colon polyps (~2015) Incarcerated hiatal hernia Nausea Snoring Hypersomnolence Intestinal malabsorption following gastrectomy Shoulder pain, right Neck pain Polyarthralgia Cervical radiculopathy Hypercholesterolemia Obesity (BMI 30-39.9) Insomnia Vitamin D deficiency PTSD (post-traumatic stress disorder) Polymyalgia HTN (hypertension) GERD (gastroesophageal reflux disease) Surgical History History of repair of hiatal hernia History of History of sleeve gastrectomy (~2016) History of laparoscopic adjustable gastric banding (~2010) History of bilateral breast reduction surgery (~2011) History of esophagogastroduodenoscopy (EGD) (~2020) Hx of abdominoplasty History of excision of mass (~2016) History of colonoscopy (~2015) Status post panniculectomy (~2013) History of carpal tunnel release (~2001) History of neck surgery History of tubal ligation (~2000) Family History Father Diabetes Mother High blood pressure High cholesterol Dementia Daughter Healthy female Son No problems noted. Son High blood pressure High cholesterol Sister Cervical cancer Maternal Grandmother Cervical cancer Other Mental health disorder Social History Household Members: Children Housing: House Are you a primary primary care sales representative to a significant other at home: No Do you presently have visiting nurse or other home services: Yes ([employer]) Alcohol intake: current Alcohol intake frequency: holidays/special occasions only Patient Tobacco Use Status: Former Tobacco user Tobacco use type: Cigarette Years Smoked: 1989 e-Cigarette/Vaping Use: Never Used Second Hand Smoke Exposure: No service: No Current occupational status: disabled Cognitive needs: Yes (cane) Hearing needs: No Vision needs: Yes (glasses) Female Reproductive History Menstrual Age of Menarche: 14 Questionnaire PHQ-9 Over the last 2 weeks, how often have you been bothered by any of the following problems? 1. Little interest or pleasure in doing things: more than half the days 2. Feeling down, depressed, or hopeless: nearly every day 3. Trouble falling or staying asleep, or sleeping too much: nearly every day 4. Feeling tired or having little energy: nearly every day 5. Poor appetite or overeating: several days 6. Feeling bad about yourself - or that you are a failure or have let yourself or your family down: more than half the days 7. Trouble concentrating on things, such as reading the newspaper or watching television: not at all 8. Moving or speaking so slowly that other people could have noticed. Or the opposite - being so fidgety or restless that you have been moving around a lot more than usual: more than half the days 9. Thoughts that you would be better off or of hurting yourself in some way: not at all Total score: 16 Depression Screening Interpretation: Positive Depression Screening Follow-up: Existing condition Depression Screening Done: Yes 68468 - PHQ-9 Billing: Yes Source: Developed by Drs. Redd Chu, Vicki Patel, Tito Álvarez and colleagues, with an educational marily from [employer]. Thrive Questionnaire Date Thrive assessed: 06/20/23 I am a: Patient What is your living situation today?: I have a steady place to live Within the past 12 months, did the food you bought not last and you didn't have the money to get more?: Never true Within the past 12 months, did you worry whether your food would run out before you got money to buy more?: Never true Do you have trouble paying for medicines?: No Do you have trouble getting transportation to medical appointments?: No Do you have trouble paying your heating and electricity bill?: No Do you have trouble taking care of your child, family member or friend?: No Do you have trouble with day-to-day activities such as bathing, preparing meals, shopping, managing finances, etc.?: No Are you currently unemployed and looking for a job?: No Are you interested in more education?: No Please select the resources that you would like help with: None Currently or been in a relationship where the following occur: no concerns reported THRIVE Score: 0 AUDIT C Alcohol Use Questionnaire (AUDIT-C) 1. How often do you have a drink containing alcohol?: Never 3. How often do you have six or more drinks on one occasion?: Never Total Score: 0 ILENE-7 AMB Questionnaire ILENE-7 Date ILENE - 7 assessed: 06/20/23 Feeling nervous, anxious, or on edge: 2 = More than half the days Not being able to stop or control worryin = Nearly every day Worrying too much about different things: 3 = Nearly every day Trouble relaxin = Nearly every day Being so restless that it is hard to sit still: 2 = More than half the days Becoming easily annoyed or irritable: 3 = Nearly every day Feeling afraid as if something awful might happen: 2 = More than half the days Total ILENE-7 score (0-4 normal; 5-9 mild; 10-14 moderate; 15-21 severe): 18 Source: Developed by Drs. Redd Chu, Vicki Patel, Tito Álvarez and colleagues, with an educational marily from [employer]. ILENE-7 Assessment Billing ILENE-7 Assessment Tool: ILENE-7 Assessment 11591 Review of Systems Const Denies headache(s) Eyes Denies loss of vision ENT Denies vertigo, Denies dizziness, Denies headache(s) and Denies sore throat Card Denies chest pain, Denies leg edema and Denies lightheadedness Resp Denies cough, Denies hemoptysis and Denies wheezing GI Denies abdominal pain, Denies melena, Denies constipation, Denies diarrhea and Denies vomiting Denies urinary frequency, Denies dysuria and Denies urinary urgency Musc Denies arthralgias, Denies joint swelling, Denies numbness and Denies tingling Neuro Denies Abnormal speech present, Denies behavioral changes, Denies vertigo, Denies dizziness, Denies headache(s), Denies loss of vision, Denies memory loss, Denies numbness and Denies tingling Psych Denies anxiety, Denies behavioral changes, Denies depression, Denies memory loss and Denies panic attacks Bhanu/Lymph Denies easy bleeding and Denies easy bruising Aller/Immun Denies wheezing Physical exam (Primary Care) Vital Signs: Last Vital Signs Pulse 90 06/20/23 11:06 Resp 16 06/20/23 11:06 BP 108/62 06/20/23 11:06 Pulse Ox 96 06/20/23 11:06 Oxygen Delivery Method Room Air 06/20/23 11:06 BMI result Body Mass Index 34.2 Tobacco/Smoking Status: Tobacco use Status Tobacco use date assessed 05/23/23 06/20/23 11:05 Patient Tobacco Use Status Former Tobacco user 06/20/23 11:05 Tobacco use type Cigarette 06/20/23 11:05 e-Cigarette/Vaping Use Never Used 06/20/23 11:05 PHQ-9: PHQ-9 Score PHQ-9: Total score 16 06/20/23 11:25 Depression Screening Interpretation: Positive Depression Screening Follow-up: Existing condition Thrive Assessment: Date of Thrive Assessment Date Thrive assessed 06/20/23 06/20/23 11:13 Currently or been in a relationship where the following occur: no concerns reported Const General: healthy appearing, no acute distress, alert and awake Nutritional Appearance: well nourished Orientation/consciousness: oriented to person, oriented to place and oriented to time [facility] Ears: TM's normal bilaterally General nose exam: Normal nasal mucous membranes and turbinates present Eyes Conjunctivae: conjunctivae normal Sclerae: sclerae normal Pupils: Equal, round and reactive pupils present Neck Neck: Yes no lymphadenopathy and Yes no JVD Thyroid: Thyroid normal Carotids: no bruits Resp Effort & Inspection: normal respiratory effort and not tachypneic Auscultation: no crackles, no rales, no rhonchi and no wheezes Cardio Rate: regular rate Rhythm: regular rhythm Heart sounds: no murmurs and normal S1 and S2 GI Palpation (GI): Soft to palpation, nontender, no hepatomegaly and no splenomegaly Auscultation: normal bowel sounds Skin General skin exam: no rashes or lesions noted and dry skin Neuro General: oriented to person, oriented to place and oriented to time Cranial nerves: Yes Equal, round and reactive pupils present Speech: No Abnormal speech present Gait exam (Neuro): Normal gait present Motor exam (neuro): no tremor noted Extrem Right upper extremity: full ROM Left upper extremity: full ROM Right lower extremity: full ROM; no edema Left lower extremity: full ROM; no edema Psych Mental Status: mental status grossly normal Speech and movement: Normal speech and movement present Affect: normal affect Attitude: cooperative Thought process: Normal thought process present Assessment and Plan Assessment & Plan (1) Pre-op evaluation: Code(s): Z01.818 - Encounter for other preprocedural examination Plan: Patient's most recent labs, vitals today and most recent EKG all stable. Patient is medically clear for cataract procedure. (2) Cataract: Code(s): H26.9 - Unspecified cataract Qualifiers: Cataract type: other Laterality: bilateral Qualified Code(s): H26.8 - Other specified cataract Plan: As above (3) Thrush, oral: Code(s): B37.0 - Candidal stomatitis Plan: Will supply patient with oral nystatin Medications: New nystatin swish and swallow 10 mL PO DAILY 7 days PRN 60 mL 0RF mouth irritation B37.0 - Candidal stomatitis Coding Level of Care Code Est Pt Level 4 (92758) Diagnoses Pre-op evaluation Z01.818 Other cataract of both eyes H26.8 Cataract type: other Laterality: bilateral Thrush, oral B37.0 Additional Codes ILENE-7 Assessment Billing - ILENE-7 Assessment Tool: ILENE-7 Assessment [id number] ([id number])
[2023-06-20 11:06] VITALS: BP 108/62; PULSE 90; RESP 16; O2SAT 96; BMI 34.2
== END 2023-06-20 11:36 | disposition home or self-care (01) ==
PROVIDERS: PCP Internal Medicine; Visit Provider Physician Assistant
DX: Z01.818 Encounter for other preprocedural examination (principal); H26.8 Other specified cataract; B37.0 Candidal stomatitis
CPT/HCPCS: 99214

== ENCOUNTER 2023-07-09 15:04 | Outpatient (REF) | payer OTHER, SELFPAY ==
--- NOTE | ~2023-07-09 | MR_ITS ---
EXAMINATION: MR BRAIN WITHOUT AND WITH CONTRAST CLINICAL INFORMATION: Bilateral temporal seizure. COMPARISON: CT head from 09/04/2022. TECHNIQUE: MRI of the brain was obtained using routine sequences without and following the administration of 8 mL of Gadavist intravenous contrast. FINDINGS: No focal restricted diffusion is demonstrated to suggest acute or subacute cerebral ischemia. No evidence of acute or chronic hemorrhagic products on heme-sensitive imaging. Scattered periventricular and deep white matter T2 FLAIR hyperintensities consistent with mild underlying microangiopathy. The ventricles are normal in morphology and size. No abnormal mass effect. No midline shift. The hippocampi are symmetric in size, contour, and signal intensity. The temporal horns appear symmetric. Mild expansion of the sella turcica with flattening of the pituitary gland. Normal positioning of the cerebellar tonsils. Normal arterial and venous vascular flow voids are present. No abnormal contrast enhancement. Normal, homogeneous marrow signal. Mucus retention cyst within the left maxillary sinus. Mild mucosal thickening of the remaining paranasal sinuses. No signal abnormalities within the mastoids. Left-sided lens extraction. MR/MR head/brain wo/w con IMPRESSION: 1. No acute intracranial abnormalities. No abnormal intracranial enhancement. 2. Mild underlying microangiopathy. 3. No additional MRI abnormalities to explain the patient's spells.
[2023-07-09] MEDS: gadobutroL 10 ML VIAL IVPUSH (16:09)
== END 2023-07-09 15:05 | disposition home or self-care (01) ==
LOC: HO.MRI 15:04
PROVIDERS: PCP Internal Medicine; Visit Provider Nurse Practitioner Family
DX: F09 Unspecified mental disorder due to known physiological condition (principal); R94.01 Abnormal electroencephalogram [EEG]
CPT/HCPCS: 70553; A9585

== ENCOUNTER 2023-08-29 14:54 | Outpatient (AMB) | payer OTHER, SELFPAY ==
[2023-08-29 15:16] VITALS: BP 114/80; BMI 34.2
--- NOTE | 2023-08-29 15:16 | MHC.OFFVIS ---
Vital Signs 08/29/23 15:16 Height 5 ft 2 in Weight 187 lb BMI 34.2 BP 114/80 Blood Pressure Location Rt brachial Position Sitting Intake Visit Reasons: 3 Month FU-Confirmed Intake Note: PATIENT PRESENTS FOR 3 MONTH FOLLOW UP Allergies No Known Allergies [No Known Allergies*] Allergy (Verified 08/29/23 15:18) Medication List - Last Reconciled 09/02/23 by CARLIN Robison acetaminophen (Tylenol Extra Strength) 1,000 mg PO Q6H PRN ascorbic acid (vitamin C) (Vitamin C) 500 mg PO DAILY bupropion HCl XL 300 mg PO QAM cholecalciferol (vitamin D3) 125 mcg PO DAILY clonazepam 0.5 mg PO DAILY PRN dicyclomine 40 mg (2 x 20 mg) PO QID ferrous sulfate 325 mg PO DAILY fluoxetine (Prozac) 40 mg PO DAILY fluoxetine 20 mg PO QAM folic acid 1 mg PO DAILY imipramine HCl 25 mg PO BEDTIME lactobacillus combination no.9 (Adult 50 Plus Probiotic) 4,000 mmu cells PO DAILY xkckzx-ntfnnesn-whvdxzn 36,000-114,000- 180,000 unit (Creon) 1 cap PO QID lisinopril-hydrochlorothiazide 20-25 mg 1 tab PO DAILY meloxicam 7.5 mg PO DAILY metoclopramide HCl 5 mg PO QID metoprolol succinate ER 25 mg PO DAILY 30 days eqiehgumqiyv-rdctlokb-yujeiu 1 tab PO DAILY nystatin 10 mL PO DAILY PRN 7 days omeprazole 40 mg (2 x 20 mg) PO BID prazosin 2 mg (2 x 1 mg) PO BEDTIME 30 days promethazine 25 mg PO TID PRN sennosides (senna) 34.4 mg (4 x 8.6 mg) PO BEDTIME simethicone 180 mg PO QID simvastatin 10 mg PO BEDTIME ziprasidone HCl 20 mg PO BEDTIME 30 days HPI Comments Details: 58-yr-old female presents for f/u visit. Pt denies any significant interval medical changes. Pt reports her headaches are now every once in a while. Headache is pounding/sharp lasts for a minute. She can still be forgetful. Baseline headache characteristics: stabbing headaches in the occipital region 07/08/22: MR/MR head/brain wo/w con IMPRESSION: 1. No acute intracranial abnormalities. No abnormal intracranial enhancement. 2. Mild underlying microangiopathy. 3. No additional MRI abnormalities to explain the patient's spells. 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 Nausea and vomiting Rectal spasm Abdominal cramping Diarrhea Esophageal dysmotility Constipation History of colon polyps (~2015) Incarcerated hiatal hernia Nausea Snoring Hypersomnolence Intestinal malabsorption following gastrectomy Shoulder pain, right Neck pain Polyarthralgia Cervical radiculopathy Hypercholesterolemia Obesity (BMI 30-39.9) Insomnia Vitamin D deficiency PTSD (post-traumatic stress disorder) Polymyalgia HTN (hypertension) GERD (gastroesophageal reflux disease) Surgical History History of repair of hiatal hernia History of History of sleeve gastrectomy (~2016) History of laparoscopic adjustable gastric banding (~2010) History of bilateral breast reduction surgery (~2011) History of esophagogastroduodenoscopy (EGD) (~2020) Hx of abdominoplasty History of excision of mass (~2016) History of colonoscopy (~2015) Status post panniculectomy (~2013) History of carpal tunnel release (~2001) History of neck surgery History of tubal ligation (~2000) Family History Father Diabetes Mother High blood pressure High cholesterol Dementia Daughter Healthy female Son No problems noted. Son High blood pressure High cholesterol Sister Cervical cancer Maternal Grandmother Cervical cancer Other Mental health disorder Social History Household Members: Children Housing: House Are you a primary account executive healthcare to a significant other at home: No Do you presently have visiting nurse or other home services: Yes ([employer]) Alcohol intake: current Alcohol intake frequency: holidays/special occasions only Patient Tobacco Use Status: Former Tobacco user Tobacco use type: Cigarette Years Smoked: 1989 e-Cigarette/Vaping Use: Never Used Second Hand Smoke Exposure: No service: No Current occupational status: disabled Cognitive needs: Yes (cane) Hearing needs: No Vision needs: Yes (glasses) Female Reproductive History Menstrual Age of Menarche: 14 Physical Exam Vital Signs: Last Vital Signs BP 114/80 08/29/23 15:16 BMI result Body Mass Index 34.2 Const General: cooperative and no acute distress Orientation/consciousness: patient oriented x3 Resp Effort & Inspection: normal respiratory effort and able to speak in complete sentences Neuro General: patient oriented x3 Cranial nerves: Yes CN's II-XII intact bilaterally Cognition (Neuro): normal cognition Psych Appearance: grossly normal Mental Status: mental status grossly normal Speech and movement: Normal speech and movement present Affect: normal affect Attitude: cooperative Assessment & Plan Assessment & Plan (1) Stabbing headache: Code(s): 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 Reviewed in-lab sleep- no evidence for sleep apnea. AHI < 0.4/hr, O2 flor 85%, sleep pattern was noted to be predominantly N2, light sleep. PLMS 5.5/hr w/PLMS arousal index 0/hr. 03/09/23, EEG- revealed bitemporal proximal slowing, which may indicate complex partial seizure activity. Reviewed 07/02/23-/07/04/23 72 hr EEG: Day 1: results not available- will request Day 2: normal Day 2: Occasional intermittent left frontotemporal slowing, per report, of uncertain clinical significance. Reviewed 07/09/23, brain MRI- Scattered periventricular and deep white matter T2 FLAIR hyperintensities consistent with mild underlying microangiopathy. Re-assess when complete ambulatory EEG is available. Will f/u on order for comprehensive neuro-psych eval. Future considerations: Trialing patient on a AED, however would like to complete workup 1st. For stabbing headaches: Pt is not interested in starting new medication for the stabbing headaches at this time Continue Imipramine. Monitor. Patient is not a candidate to do a indomethacin trial d/t history of gastric surgery. Future considerations: Pain management referral for ON block or trigger point injections. Follow-up in 6 months or sooner as needed. Coding Level of Care Code Est Pt Level 4 (09047) Diagnoses Stabbing headache G44.85 Cognitive dysfunction F09
== END 2023-08-29 16:03 | disposition home or self-care (01) ==
PROVIDERS: PCP Internal Medicine; Visit Provider Nurse Practitioner Family
DX: G44.85 Primary stabbing headache (principal); R41.89 Other symptoms and signs involving cognitive functions and awareness
CPT/HCPCS: 99214

== ENCOUNTER → 2023-08-29 14:54 | Outpatient (BNVA) | payer OTHER, SELFPAY | PROVIDERS: PCP Internal Medicine; Visit Provider Nurse Practitioner Family | DX: G44.85 Primary stabbing headache (principal); F09 Unspecified mental disorder due to known physiological condition | CPT/HCPCS: 99212 ==

== ENCOUNTER 2023-09-06 07:57 | Emergency (ER) | payer OTHER, SELFPAY ==
--- NOTE | ~2023-09-06 | XR_ITS ---
EXAMINATION: XR CHEST CLINICAL INFORMATION: Chest pain COMPARISON: 04/06/2023 TECHNIQUE: Frontal view of the chest was obtained. FINDINGS: No significant abnormality is noted involving the heart, lungs, mediastinum, bony thorax or soft tissues. A suture line is seen from prior gastric sleeve. XR/XR chest 1V IMPRESSION: Unremarkable examination.
--- NOTE | ~2023-09-06 | US_ITS ---
EXAMINATION: US ABDOMEN LIMITED CLINICAL INFORMATION: Right upper quadrant/epigastric pain. COMPARISON: None available. TECHNIQUE: Real-time imaging of the common bile duct and gallbladder. FINDINGS: GALLBLADDER: The gallbladder is contracted but otherwise unremarkable without evidence of stones, sludge, polyps, wall thickening or pericholecystic fluid. The patient complained of pain when the multiple spindle screw machine operator compressed over the region of the gallbladder. COMMON BILE DUCT: Normal in caliber measuring 0.2 cm in diameter. US/US abdomen limited IMPRESSION: Contracted gallbladder with no evidence of cholelithiasis. The patient did complain of pain when the multiple spindle screw machine operator compressed over the region of the gallbladder (positive Vivas's sign).
--- NOTE | 2023-09-06 08:02 | ECG_ITS ---
Test Reason : chest pain Blood Pressure : / mmHG Vent. Rate : 090 BPM Atrial Rate : 090 BPM P-R Int : 138 ms QRS Dur : 082 ms QT Int : 322 ms P-R-T Axes : 026 -14 037 degrees QTc Int : 393 ms Normal sinus rhythm Minimal voltage criteria for LVH, may be normal variant ( R in aVL ) Nonspecific T wave abnormality Abnormal ECG When compared with ECG of 06-APR-2023 15:22, Nonspecific T wave abnormality, worse in Inferior leads Nonspecific T wave abnormality, worse in Lateral leads Referred By: Tari Keene Electronically Signed By:EMILIANA ORTIZ MD
[2023-09-06 08:21] VITALS: BP 130/91; PULSE 94; RESP 18; TEMP 36.2; O2SAT 98; BMI 34.0
--- NOTE | 2023-09-06 08:23 | ED_ITS ---
HPI - Chest Pain General Chief Complaint: Chest Pain Stated Complaint: Chest pain Time Seen by Provider: 09/06/23 09:26 Source: patient Mode of arrival: ambulatory History of Present Illness HPI narrative: 58-year-old female with history of hypertension and esophageal dysmotility presents for complaints of epigastric/ substernal abdominal/chest discomfort for 2 days with associated radiation to the back and right side, not associated with exertion/dizziness/shortness of breath. Related Data Home Medications ?Medication ?Instructions ?Recorded ?Confirmed bupropion HCl 150 mg 24 hr tablet, 300 mg PO QAM 03/05/20 09/02/23 extended release clonazepam 0.5 mg tablet 0.5 mg PO DAILY PRN Anxiety 06/08/20 09/02/23 fluoxetine 20 mg capsule (Prozac) 40 mg PO DAILY 06/08/20 09/02/23 twxbymtzyvly-rfpdivog-xfrues tablet 1 tab PO DAILY 06/08/20 09/02/23 cholecalciferol (vitamin D3) 125 125 mcg PO DAILY 12/09/21 09/02/23 mcg (5,000 unit) capsule acetaminophen 500 mg tablet 1,000 mg PO Q6H PRN Pain, Mild 12/23/21 09/02/23 (Tylenol Extra Strength) fluoxetine 10 mg capsule 20 mg PO QAM 01/25/23 09/02/23 lactobacillus combination no.9 4 4,000 mmu cells PO DAILY 01/25/23 09/02/23 billion cell capsule (Adult 50 Plus Probiotic) Previous Rx's ?Medication ?Instructions ?Recorded prazosin 1 mg capsule 2 mg (2 x 1 mg) PO BEDTIME 30 days 05/05/22 #60 caps ziprasidone HCl 20 mg capsule 20 mg PO BEDTIME 30 days #30 caps 05/05/22 ascorbic acid (vitamin C) 500 mg 500 mg PO DAILY #90 caps 11/03/22 tablet (Vitamin C) metoprolol succinate 25 mg 25 mg PO DAILY 30 days #90 tabs 02/28/23 tablet,extended release 24 hr meloxicam 7.5 mg tablet 7.5 mg PO DAILY #90 tabs 05/02/23 folic acid 1 mg tablet 1 mg PO DAILY #30 tabs 05/23/23 dicyclomine 20 mg tablet 40 mg (2 x 20 mg) PO QID for 05/30/23 abdominal pain #240 tabs imipramine HCl 25 mg tablet 25 mg PO BEDTIME #30 tabs 05/30/23 gkkqbl-lgvmwmai-poloqgf 1 cap PO QID #120 caps 05/30/23 36,000-114,000-180,000 unit capsule,delay rel (Creon) metoclopramide HCl 5 mg tablet 5 mg PO QID #120 tabs 05/30/23 sennosides 8.6 mg capsule (senna) 34.4 mg (4 x 8.6 mg) PO BEDTIME 05/30/23 #120 caps simethicone 180 mg capsule 180 mg PO QID #120 caps 05/30/23 ferrous sulfate 325 mg (65 mg 325 mg PO DAILY #90 caps 06/10/23 iron) tablet nystatin 100,000 unit/mL oral 10 ml PO DAILY PRN mouth 06/20/23 suspension irritation 7 days #60 mL promethazine 25 mg tablet 25 mg PO TID PRN for 07/16/23 nausea/vomiting #30 tabs omeprazole 20 mg capsule,delayed 40 mg (2 x 20 mg) PO BID #180 caps 08/07/23 release lisinopril 20 1 tab PO DAILY #90 caps 09/01/23 mg-hydrochlorothiazide 25 mg tablet simvastatin 10 mg tablet 10 mg PO BEDTIME #90 tabs 09/01/23 Allergies Allergy/AdvReac Type Severity Reaction Status Date / Time No Known Allergies Allergy Verified 09/06/23 08:22 [No Known Allergies*] Review of Systems 2 Review of Systems: Pertinent positives and negatives as stated in HPI [facility] Past Medical History Source: nursing notes reviewed Medical History Fatigue Dizziness Chest pain Palpitations SOB (shortness of breath) on exertion Rectal pain Right renal stone COVID-19 Rectal pain Nausea and vomiting Annual physical exam Overweight Abscess of finger of left hand Family history of polyps in the colon Impaired glucose tolerance Family history of dementia 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 Nausea and vomiting Rectal spasm Abdominal cramping Diarrhea Esophageal dysmotility Constipation History of colon polyps (~2015) Incarcerated hiatal hernia Nausea Snoring Hypersomnolence Intestinal malabsorption following gastrectomy Shoulder pain, right Neck pain Polyarthralgia Cervical radiculopathy Hypercholesterolemia Obesity (BMI 30-39.9) Insomnia Vitamin D deficiency PTSD (post-traumatic stress disorder) Polymyalgia HTN (hypertension) GERD (gastroesophageal reflux disease) Surgical History History of repair of hiatal hernia History of History of sleeve gastrectomy (~2016) History of laparoscopic adjustable gastric banding (~2010) History of bilateral breast reduction surgery (~2011) History of esophagogastroduodenoscopy (EGD) (~2020) Hx of abdominoplasty History of excision of mass (~2016) History of colonoscopy (~2015) Status post panniculectomy (~2013) History of carpal tunnel release (~2001) History of neck surgery History of tubal ligation (~2000) Family History Family History Father Diabetes Mother High blood pressure High cholesterol Dementia Daughter Healthy female Son No problems noted. Son High blood pressure High cholesterol Sister Cervical cancer Maternal Grandmother Cervical cancer Other Mental health disorder Social History Social History Household Members: Children Housing: House Are you a primary critical care physician to a significant other at home: No Do you presently have visiting nurse or other home services: Yes ([employer]) Alcohol intake: current Alcohol intake frequency: holidays/special occasions only Patient Tobacco Use Status: Former Tobacco user Tobacco use type: Cigarette Years Smoked: stopped 1990 Smoked in Last 30 Days: No e-Cigarette/Vaping Use: Never Used Second Hand Smoke Exposure: No Use of substances other than those prescribed or required for medical reasons: No Advance Directives: No Advance Directives Information Provided: Yes Do you have a plan to hurt others: No Plan Patient : No service: No Current occupational status: disabled Cognitive needs: Yes (cane) Hearing needs: No Vision needs: Yes (glasses) Physical Exam 2 Vital Signs: Vital Signs: Last Vital Signs Temp 98.1 F 09/06/23 09:35 Pulse 81 09/06/23 10:12 Resp 15 09/06/23 10:12 BP 138/87 09/06/23 10:12 Pulse Ox 100 09/06/23 10:12 O2 Del Method Room Air 09/06/23 10:12 BMI result Body Mass Index 34.0 VITAL SIGNS: Reviewed. GENERAL: Elevated BMI, Well developed, well nourished, in no acute distress. HEAD: Normocephalic/atraumatic EYES: PERRLA, EOMI EARS: Ext canals without abnormality NOSE: Nares patent bilateral OROPHARYNX: no oral lesions noted, posterior pharynx clear NECK: Supple, no adenopathy LUNGS: Normal breath sounds. No adventitious sounds or accessory muscle use. SpO2<100> CARDIOVASCULAR: Regular rate and rhythm without noted murmurs ABDOMEN: Soft, right upper quadrant/epigastric without rebound, non-distended with bowel sounds. MUSCULOSKELETAL: No tenderness, deformities, or effusions noted on gross inspection. EXTREMITIES: No cyanosis, clubbing or edema. SKIN: Inspection of the skin reveals no rashes NEUROLOGIC: Alert and oriented x 4. Strength and sensation to light touch were grossly intact x 4. Course Course Course Narrative: RME performed by Tari Keene PA-C. Patient is a 58 year old assigned female at presenting to the emergency department with chest pain. Patient states over the last 2 days she has had central chest pain that has now moved to her right rib cage and back into her epigastric area. Detailed physical exam and review of systems are deferred to the social insurance administrator. EKG, labs, imaging, and swabs ordered. Patient placed back in the waiting room pending room availability and results. Medical Decision Making Medical Decision Making MDM Narrative: 58-year-old female with history and clinical presentation, DDX: Musculoskeletal pain, esophageal dysmotility exacerbation, gastritis, cholecystitis, low clinical suspicion for pancreatitis or other intra-abdominal pathology. I reviewed all investigations and hematologic indices are negative for leukocytosis/left shift/anemia/thrombocytopenia. Chemistry indices negative for PATRICIA/electrolyte/liver enzyme derangements and high sensitivity troponin is undetectable. Viral testing negative for influenza/COVID-19/RSV. Chest x-ray is negative for infiltrate or venous congestion otherwise my interpretation is in agreement with radiology's impression. Ultrasound identifies a contracted gallbladder without evidence of cholelithiasis although patient describes pain on compression further suggesting the likelihood of musculoskeletal pain. All results discussed with her and she was discharged with recommendations to follow-up with the primary care doctor. In addition, she was encouraged to follow-up with her director of human resources for further discussion regarding her esophageal dysmotility. Differential Diagnosis Differential Diagnoses: The differential diagnosis associated with the presentation includes Please see the discussion above Admission/Observation Consideration of admission/observation: Escalation of care including admission/observation considered Please see the discussion above Lab Data MDM Lab Attestation statement: I reviewed the patient's lab results. Please see the discussion above 09/06/23 08:17 09/06/23 08:17 Labs: Lab Results 09/06/23 Range/Units 08:17 WBC 6.1 (4.8-10.8) X10*3/uL RBC 4.33 (4.20-5.50) X10*6/uL Hgb 12.4 (12.0-16.0) g/dl Hct 37.1 (37.0-47.0) % MCV 85.7 (80.0-98.0) fL MCH 28.6 (27.0-33.0) pg MCHC 33.4 (31.0-35.0) g/dl RDW 13.1 (11.0-16.0) % Plt Count 189 D (160-400) X10*3/uL MPV 10.4 (9.4-12.3) fL Immature Gran % (Auto) 0.3 (0.0-0.4) % Neut % (Auto) 56.6 (45-73) % Lymph % (Auto) 29.2 (20-40) % [place] % (Auto) 10.9 (2-11) % Eos % (Auto) 2.5 (0-4) % Baso % (Auto) 0.5 (0-2) % Lymph # (Auto) 1.8 (1.2-4.9) X10*3/uL [place] # (Auto) 0.7 (0.1-1.2) X10*3/uL Eos # (Auto) 0.2 (0.0-0.4) X10*3/uL Baso # (Auto) 0.0 (0.0-0.2) X10*3/uL Abs Immat Gran (auto) 0.02 (0.00-0.03) X10*3/uL Absolute Neuts (auto) 3.4 (2.0-8.3) x10*3/uL Absolute Nucleated RBC 0.000 (0.0-0.012) X10*3/uL Nucleated RBC % (auto) 0.0 (0.0-0.2) /100WBC Smear Tech's Comments VERIFIED Sodium 141 (135-145) mmol/L Potassium 3.4 (3.3-5.1) mmol/L Chloride 107 (96-108) mmol/L Carbon Dioxide 21 L (22-29) mmol/L Anion Gap 16 (12-20) BUN 13 (9-16) mg/dL Creatinine 1.19 (0.5-1.4) mg/dL Estim Creat Clear Calc 51.3 Estimated GFR 46 Random Glucose 82 (60-115) mg/dL Calcium 9.4 (8.4-10.2) mg/dL Total Bilirubin 0.3 (0.0-1.0) mg/dL AST 29 (5-31) U/L ALT 29 (0-31) U/L Alkaline Phosphatase 73 (39-117) U/L Troponin I High Sens < 2.7 (<3.5-17.0) ng/L Total Protein 7.0 (6.5-8.0) g/dL Albumin 4.2 (3.5-5.0) g/dL Influenza Type A (PCR) NEGATIVE (Negative) Influenza Type B (PCR) NEGATIVE (Negative) RSV RNA Qual (PCR) NEGATIVE (Negative) SARS-CoV-2 RNA (RT-PCR) NEGATIVE (Negative) Independent Interpretation I performed an independent interpretation of an: EKG Interpretation: Normal sinus rhythm, HR -90, no STEMI, NV/QRS/QTC is within normal limits. No acute changes when compared to EKG from 03/2023. Radiology Impression Discussion of test interpretation with radiology: I have reviewed the radiologist's reading. Radiologist Impression: Please see the discussion above External Record Review External record reviewed: Outpatient record, Prior outpatient labs and Prior outpatient radiology Chronic Conditions Patient?s care impacted by: Hypertension Critical Care Time Critical Care Time Critical Care Time: Yes Total Critical Care Time: 45 Attestation: I personally attest to this time spent taking care of the patient. Discharge Plan Discharge Clinical Impression: Musculoskeletal pain, Esophageal dysmotility Patient Disposition: Home, Self-Care Instructions: Esophageal Spasm (ED), Musculoskeletal Pain (ED) Additional Instructions: 1. Resume all home medications as prescribed. 2. Please follow-up with your director of human resources provider as well as your primary care doctor the 1st part of next week for re-evaluation further outpatient management. Your workup today suggested you may have musculoskeletal pain or possible symptoms from your known esophageal dysmotility. Return to the ER for any worsening symptoms. Prescriptions: No Action prazosin 1 mg capsule 2 mg PO BEDTIME 30 Days Qty: 60 0RF ziprasidone HCl 20 mg capsule 20 mg PO BEDTIME 30 Days Qty: 30 0RF ascorbic acid (vitamin C) [Vitamin C] 500 mg tablet 500 mg PO DAILY Qty: 90 3RF metoprolol succinate 25 mg tablet extended release 24 hr 25 mg PO DAILY 30 Days Qty: 90 1RF meloxicam 7.5 mg tablet 7.5 mg PO DAILY Qty: 90 0RF ferrous sulfate 325 mg (65 mg iron) tablet 325 mg PO DAILY Qty: 90 3RF promethazine 25 mg tablet 25 mg PO TID PRN (Reason: for nausea/vomiting) Qty: 30 3RF omeprazole 20 mg capsule,delayed release(DR/EC) 40 mg PO BID Qty: 180 2RF lisinopril-hydrochlorothiazide 20-25 mg tablet 1 tab PO DAILY Qty: 90 2RF simvastatin 10 mg tablet 10 mg PO BEDTIME Qty: 90 2RF clonazepam 0.5 mg Tablet 0.5 mg PO DAILY PRN (Reason: Anxiety) fluoxetine [Prozac] 20 mg Capsule 40 mg PO DAILY Rx Instructions: Take 2 tabs PO Daily itbwotnzlulu-jemhwvdy-flmtzp Tablet 1 tab PO DAILY nystatin 100,000 unit/mL suspension 10 ml PO DAILY PRN (Reason: mouth irritation) 7 Days Qty: 60 0RF Rx Instructions: swish and swallow Adult 50 Plus Probiotic 4 billion cell capsule 4,000 mmu cells PO DAILY Rx Instructions: administer with a meal folic acid 1 mg tablet 1 mg PO DAILY Qty: 30 5RF bupropion HCl 150 mg tablet extended release 24 hr 300 mg PO QAM fluoxetine 10 mg capsule 20 mg PO QAM cholecalciferol (vitamin D3) 125 mcg (5,000 unit) capsule 125 mcg PO DAILY acetaminophen [Tylenol Extra Strength] 500 mg tablet 1,000 mg PO Q6H PRN (Reason: Pain, Mild) imipramine HCl 25 mg tablet 25 mg PO BEDTIME Qty: 30 6RF dicyclomine 20 mg tablet 40 mg PO QID Qty: 240 3RF senna 8.6 mg capsule 34.4 mg PO BEDTIME Qty: 120 6RF simethicone 180 mg capsule 180 mg PO QID Qty: 120 6RF metoclopramide HCl 5 mg tablet 5 mg PO QID Qty: 120 6RF Creon 36,000-114,000- 180,000 unit capsule,delayed release(DR/EC) 1 cap PO QID Qty: 120 6RF Referrals: Po,Demi Rendon MD [Primary Care Provider] - Peri Bernal, ANP-C [Nurse Practitioner] - Print Language: Guinean
[2023-09-06 08:27] LABS: Basophils Percent Auto 0.5 % (0-2); Eosinophils Absolute Auto 0.2 X10*3/uL (0.0-0.4); Eosinophils Percent Auto 2.5 % (0-4); Hematocrit 37.1 % (37.0-47.0); Hemoglobin 12.4 g/dl (12.0-16.0); Imm Gran Abs Auto 0.02 X10*3/uL (0.00-0.03); Imm Gran Pct Auto 0.3 % (0.0-0.4); Lymphocytes Absolute Auto 1.8 X10*3/uL (1.2-4.9); Lymphocytes Percent Auto 29.2 % (20-40); MANUAL DIFF FLAG SCAN; Mean Corpuscular HGB Conc 33.4 g/dl (31.0-35.0); Mean Corpuscular Hemoglobin 28.6 pg (27.0-33.0); Mean Corpuscular Volume 85.7 fL (80.0-98.0); Mean Platelet Volume 10.4 fL (9.4-12.3); Monocytes Absolute Auto 0.7 X10*3/uL (0.1-1.2); Monocytes Percent Auto 10.9 % (2-11); Neutrophils Absolute Auto 3.4 x10*3/uL (2.0-8.3); Neutrophils Percent Auto 56.6 % (45-73); PLT CLUMP 1; Red Blood Count 4.33 X10*6/uL (4.20-5.50); Red Cell Distribution Width 13.1 % (11.0-16.0); SCAN SMEAR FLAG 1
[2023-09-06 08:28] LABS: White Blood Count 6.1 X10*3/uL (4.8-10.8)
[2023-09-06 08:35] LABS: Alanine Aminotransferase 29 U/L (0-31); Albumin Level 4.2 g/dL (3.5-5.0); Alkaline Phosphatase 73 U/L (39-117); Anion Gap 16 (12-20); Aspartate Amino Transferase 29 U/L (5-31); Bilirubin Total 0.3 mg/dL (0.0-1.0); Blood Urea Nitrogen 13 mg/dL (9-16); Calcium 9.4 mg/dL (8.4-10.2); Carbon Dioxide 21 mmol/L (22-29); Chloride 107 mmol/L (96-108); Creatinine Clr Calc Pharmacy 51.3; Estimated Glomerular Filt Rate 46; Glucose Random 82 mg/dL (60-115); Potassium 3.4 mmol/L (3.3-5.1); Sodium 141 mmol/L (135-145)
[2023-09-06 08:44] LABS: Platelet Count 189 X10*3/uL (160-400); SLIDE REVIEW VERIFIED
[2023-09-06 08:48] LABS: Troponin-I High Sensitivity < 2.7 ng/L (<3.5-17.0)
[2023-09-06 09:06] LABS: Influenza A PCR NEGATIVE (Negative); Influenza B PCR NEGATIVE (Negative); Resp Syncy Virus RNA Qual PCR NEGATIVE (Negative); SARS COV2 PCR INHOUSE NEGATIVE (Negative)
[2023-09-06 09:35] VITALS: BP 146/90; PULSE 85; RESP 18; TEMP 36.7; O2SAT 100
[2023-09-06 10:12] VITALS: BP 138/87; PULSE 81; RESP 15; O2SAT 100
[2023-09-06 12:07] VITALS: BP 158/98; PULSE 81; RESP 15; TEMP 36.7; O2SAT 100
[2023-09-06] MEDS: Magnesium Hydrox/Alum Hydrox 30 ML ORAL.SUSP PO (12:12)
[2023-09-06] MEDS: Ibuprofen 400 MG TABLET PO (12:12)
[2023-09-06] MEDS: Acetaminophen 325 MG TABLET 975 MG PO (12:12)
[2023-09-06] MEDS: Lidocaine HCl Viscous 2 % 15 ML SOLUTION 10 ML MUCOUS MEM (12:13)
== END 2023-09-06 12:16 | disposition home or self-care (01) ==
PROVIDERS: Physician Assistant Medical; Emergency Provider Student in an Organized Health Care Education/Training Program; PCP Internal Medicine
DX: M79.18 Myalgia, other site (principal); K22.4 Dyskinesia of esophagus; I10 Essential (primary) hypertension; Z03.818 Encounter for observation for suspected exposure to other biological agents ruled out
CPT/HCPCS: 0241U; 71045; 76705; 80053; 84484; 85025; 93005; 99284; 99285

== ENCOUNTER → 2023-09-06 08:02 | Outpatient (BNV) | payer OTHER, SELFPAY | PROVIDERS: Emergency Provider Student in an Organized Health Care Education/Training Program; PCP Internal Medicine; Visit Provider Internal Medicine Cardiovascular Disease | DX: R94.31 Abnormal electrocardiogram [ECG] [EKG] (principal) | CPT/HCPCS: 93010 ==

== ENCOUNTER 2023-10-11 15:34 | Outpatient (AMB) | payer OTHER, SELFPAY ==
[2023-10-11 15:36] VITALS: BP 116/84; PULSE 102
--- NOTE | 2023-10-11 15:36 | MHC.OFFVIS ---
Vital Signs 10/11/23 15:36 Height 5 ft 2 in BP 116/84 Blood Pressure Location Lt brachial Position Sitting Pulse 102 H Intake Visit Reasons: 3 month follow up Intake Note: Hannah presents to in office visit today in 3 months follow up of GERD. CC: Patient c/o vomiting, dizziness and falling when she vomits too much and abdominal pain. Denies other GI symptoms today. Psychologist Experimental Required: No Accompanied by: Self / Same As Patient Allergies No Known Allergies [No Known Allergies*] Allergy (Verified 10/11/23 15:43) HPI HPI 3 month follow up: Details: Assessment & Plan (1) GERD (gastroesophageal reflux disease): Code(s): K21.9 - Gastro-esophageal reflux disease without esophagitis Qualifiers: Esophagitis presence: without esophagitis Qualified Code(s): K21.9 - Gastro-esophageal reflux disease without esophagitis (2) Irritable bowel syndrome: Code(s): K58.9 - Irritable bowel syndrome without diarrhea (3) Intestinal malabsorption following gastrectomy: Code(s): K91.2 - Postsurgical malabsorption, not elsewhere classified; Z90.3 - Acquired absence of stomach [part of] (4) Cognitive dysfunction: Comment: MMSE 24 Code(s): F09 - Unspecified mental disorder due to known physiological condition Plan She says my stomach is good, but ana rest of my body has problems. She just was evaluated by neurology for confusion and clouded thinking, and they did an EEG and she was told she was having mini seizures. Also, she is desaturating at night and may have ELKIN, and she has spots on her tongue that need to be biopsied to r/o cancer. She still is uncertain whether she is taking the metoclopramide but I wrote down for her so she can check. I also explained that this is not just for nausea but keeps the whole GI system moving so it is important that she take it scheduled. If she has not taking this it could also explain her lingering upper abdominal pain. She continues on her omeprazole 40 mg twice a day her senna at bedtime simethicone and imipramine at bedtime.. Return office visit in 6 weeks Medications: New omeprazole 40 mg PO BID 30 days 60 caps 6RF K21.9 - Gastro-esophageal reflux disease without esophagitis Refilled dicyclomine 40 mg (2 x 20 mg) PO QID 240 tabs 3RF for abdominal pain R10.9 - Unspecified abdominal pain, R19.7 - Diarrhea, unspecified simethicone 180 mg PO QID 120 caps 6RF metoclopramide HCl 5 mg PO QID 120 tabs 6RF R11.2 - Nausea with vomiting, unspecified [id number] 36,000-114,000- 180,000 unit (Creon) 1 cap PO QID 120 caps 6RF K58.9 - Irritable bowel syndrome without diarrhea imipramine HCl 25 mg PO BEDTIME 30 tabs 6RF K58.9 - Irritable bowel syndrome without diarrhea sennosides (senna) 34.4 mg (4 x 8.6 mg) PO BEDTIME 120 caps 6RF K59.00 - Constipation, unspecified [id number] 36,000-114,000- 180,000 unit (Creon) 1 cap PO QID 120 caps 6RF K58.9 - Irritable bowel syndrome without diarrhea Discontinued omeprazole Discontinued Reason: Doctor's Order 40 mg (2 x 20 mg) PO BID 180 caps 2RF K21.9 - Gastro-esophageal reflux disease without esophagitis TODAY'S VISIT She is again having dyaphagia of dry foods like bread and things like rice. They are sticking mid sternally and she will have to cough it back up. Sometimes drinking water will hep to pass it, sometimes not. She had a dilatation in 2020 that she says helped, but there also is a ? of acalasia or esophageal dysmotility. She does have a 3 mm hiatal hernia. I think another EGD would be in order. There are no prior problems with anesthesia or sedation. She denies any cardiac or respiratory problems. There are no infectious disease problems. She is also having some episodic diarrhea and concerns her because the stool is colored yellow to orange in color. This is bile and I am uncertain why this is happening as she still has a gallbladder. However she does find that her stomach problems or somewhat relieved with the dicyclomine but she did not understand that she could take this multiple times a day. I encouraged her to do so as this may slow down the diarrhea and help her with her symptoms. If not we can consider adding a bile binding agent. She continues on Reglan 5 mg 4 times a day, dicyclomine that is available to her 4 times a day, imipramine 25 mg at bedtime, Creon 2 tabs twice a day, and simethicone 4 times a day as needed along with her omeprazole 40 mg twice a day. 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 Nausea and vomiting Rectal spasm Abdominal cramping Diarrhea Esophageal dysmotility Constipation History of colon polyps (~2015) Incarcerated hiatal hernia Nausea Snoring Hypersomnolence Intestinal malabsorption following gastrectomy Shoulder pain, right Neck pain Polyarthralgia Cervical radiculopathy Hypercholesterolemia Obesity (BMI 30-39.9) Insomnia Vitamin D deficiency PTSD (post-traumatic stress disorder) Polymyalgia HTN (hypertension) GERD (gastroesophageal reflux disease) Surgical History History of repair of hiatal hernia History of History of sleeve gastrectomy (~2016) History of laparoscopic adjustable gastric banding (~2010) History of bilateral breast reduction surgery (~2011) History of esophagogastroduodenoscopy (EGD) (~2020) Hx of abdominoplasty History of excision of mass (~2016) History of colonoscopy (~2015) Status post panniculectomy (~2013) History of carpal tunnel release (~2001) History of neck surgery History of tubal ligation (~2000) Family History Father Diabetes Mother High blood pressure High cholesterol Dementia Daughter Healthy female Son No problems noted. Son High blood pressure High cholesterol Sister Cervical cancer Maternal Grandmother Cervical cancer Other Mental health disorder Social History Household Members: Children Housing: House Are you a primary career services coordinator to a significant other at home: No Do you presently have visiting nurse or other home services: Yes ([employer]) Alcohol intake: current Alcohol intake frequency: holidays/special occasions only Patient Tobacco Use Status: Former Tobacco user Tobacco use type: Cigarette Years Smoked: stopped 1989 e-Cigarette/Vaping Use: Never Used Second Hand Smoke Exposure: No service: No Current occupational status: disabled Cognitive needs: Yes (cane) Hearing needs: No Vision needs: Yes (glasses) Female Reproductive History Menstrual Age of Menarche: 14 Review of Systems Const Denies fatigue, Denies fever(s), Denies night sweats, Denies poor appetite and Denies weight loss ENT Reports Normal hearing present, Denies dental pain, Reports dysphagia, Denies hearing loss, Denies mouth pain, Denies odynophagia, Denies throat swelling, Denies tongue swelling and Reports other (Dentition adequate) Card Reports no additional complaints Resp Reports no additional complaints GI Details: Denies abdominal pain, Denies melena, Reports bloating, Denies hematochezia, Reports constipation, Denies GI cramping, Reports dysphagia, Denies excessive flatus, Denies early satiety, Reports dyspepsia, Reports heartburn, Denies diarrhea, Reports nausea, Denies odynophagia, Denies vomiting and Denies hematemesis Skin/Breast Denies pruritus, Denies lesions, Denies rash and Denies jaundice Neuro Reports Normal hearing present and Denies Abnormal speech present Endo Denies fatigue Aller/Immun Denies throat swelling and Denies tongue swelling Physical Exam Vital Signs: Last Vital Signs Pulse 102 H 10/11/23 15:36 BP 116/84 10/11/23 15:36 Const General: cooperative, no acute distress, well developed and well groomed Nutritional Appearance: well nourished and obese Orientation/consciousness: oriented to person, oriented to place and oriented to time Limitations: No language barrier HEENT Head: Yes normocephalic and Yes atraumatic Eyes General: appearance normal, both eyes and all related structures Pupils: Equal, round and reactive pupils present Neck Neck: Yes normal visual inspection and Yes no lymphadenopathy Thyroid: Thyroid normal Resp Effort & Inspection: normal respiratory effort and able to speak in complete sentences Auscultation: clear to auscultation bilaterally Cardio Rate: regular rate Rhythm: regular rhythm Heart sounds: Normal, physiologic split S2 sound present Peripheral pulses: radial pulses present and posterior tibial pulses present GI Inspection: No distended, No Abdominal panniculus present and Yes obesity Palpation (GI): Soft to palpation, nontender, no guarding, not rigid and No hepatosplenomegaly present Percussion: Yes normal to percussion Auscultation: normal bowel sounds Rectal Exam - Female: deferred Skin General skin exam: no rashes or lesions noted, turgor normal, skin not dry, no jaundice, No spider nevi and no striae Rashes: no rashes Nails: normal Neuro General: oriented to person, oriented to place and oriented to time Cranial nerves: Yes Equal, round and reactive pupils present and Yes Normal hearing present Speech: No Abnormal speech present Extrem General: Yes normal to inspection, No clubbing, No cyanosis and No edema Psych Appearance: grossly normal and well kempt Mental Status: mental status grossly normal Speech and movement: Normal speech and movement present Affect: normal affect Attitude: cooperative Thought process: Normal thought process present and not confabulating Thought content: Normal thought content present Insight: Limited insight present (Psych) Judgement: Limited judgement present (Psych) Results Reviewed Results Reviewed: Laboratory Tests 09/06/23 08:17 WBC 6.1 Hgb 12.4 Hct 37.1 Plt Count 189 D Estimated GFR 46 Total Bilirubin 0.3 AST 29 ALT 29 Alkaline Phosphatase 73 Assessment & Plan Assessment & Plan (1) Irritable bowel syndrome: Code(s): K58.9 - Irritable bowel syndrome without diarrhea Category: Medical (2) GERD (gastroesophageal reflux disease): Code(s): K21.9 - Gastro-esophageal reflux disease without esophagitis Category: Medical Qualifiers: Esophagitis presence: without esophagitis Qualified Code(s): K21.9 - Gastro-esophageal reflux disease without esophagitis (3) Intestinal malabsorption following gastrectomy: Code(s): K91.2 - Postsurgical malabsorption, not elsewhere classified; Z90.3 - Acquired absence of stomach [part of] Category: Medical (4) Dysphagia: Code(s): R13.10 - Dysphagia, unspecified Category: Medical (5) Pre-op evaluation: Code(s): Z01.818 - Encounter for other preprocedural examination Category: Medical Plan She is again having dyaphagia of dry foods like bread and things like rice. They are sticking mid sternally and she will have to cough it back up. Sometimes drinking water will hep to pass it, sometimes not. She had a dilatation in 2020 that she says helped, but there also is a ? of acalasia or esophageal dysmotility. She does have a 3 mm hiatal hernia. I think another EGD would be in order. There are no prior problems with anesthesia or sedation. She denies any cardiac or respiratory problems. There are no infectious disease problems. She is also having some episodic diarrhea and concerns her because the stool is colored yellow to orange in color. This is bile and I am uncertain why this is happening as she still has a gallbladder. However she does find that her stomach problems or somewhat relieved with the dicyclomine but she did not understand that she could take this multiple times a day. I encouraged her to do so as this may slow down the diarrhea and help her with her symptoms. If not we can consider adding a bile binding agent. She continues on Reglan 5 mg 4 times a day, dicyclomine that is available to her 4 times a day, imipramine 25 mg at bedtime, Creon 2 tabs twice a day, and simethicone 4 times a day as needed along with her omeprazole 40 mg twice a day. Return office visit in 8 weeks Orders: Orders EGD with [facility] - GI Use Only Today R13.10 - Dysphagia, unspecified Coding Level of Care Code Est Pt Level 4 (20607) Diagnoses Irritable bowel syndrome K58.9 Gastroesophageal reflux disease without esophagitis K21.9 Esophagitis presence: without esophagitis Intestinal malabsorption following gastrectomy K91.2; Z90.3 Dysphagia R13.10 Pre-op evaluation Z01.818
== END 2023-10-11 16:12 | disposition home or self-care (01) ==
PROVIDERS: PCP Internal Medicine; Visit Provider Nurse Practitioner
DX: K58.9 Irritable bowel syndrome, unspecified (principal); K21.9 Gastro-esophageal reflux disease without esophagitis; K91.2 Postsurgical malabsorption, not elsewhere classified; Z90.3 Acquired absence of stomach [part of]; R13.10 Dysphagia, unspecified; Z01.818 Encounter for other preprocedural examination
CPT/HCPCS: 99214

== ENCOUNTER → 2023-10-11 15:34 | Outpatient (BNVA) | payer OTHER, SELFPAY | PROVIDERS: PCP Internal Medicine; Visit Provider Nurse Practitioner | DX: Z01.818 Encounter for other preprocedural examination (principal); K21.9 Gastro-esophageal reflux disease without esophagitis; K58.9 Irritable bowel syndrome, unspecified; K91.2 Postsurgical malabsorption, not elsewhere classified; R13.10 Dysphagia, unspecified; F09 Unspecified mental disorder due to known physiological condition; Z90.3 Acquired absence of stomach [part of] | CPT/HCPCS: 99212 ==

== ENCOUNTER 2023-12-06 16:20 | Outpatient (AMB) | payer OTHER, SELFPAY ==
--- NOTE | 2023-12-06 16:22 | MHC.OFFVIS ---
Vital Signs 12/06/23 16:24 Height 5 ft 2 in BP 123/87 Blood Pressure Location Lt brachial Position Sitting Pulse 96 Intake Visit Reasons: 8 WEEK FOLLOW UP Intake Note: Patient in office today in follow up of abdominal pain. CC: Patient c/o new onset of RUQ abdominal pain, and abdominal pain bloating. She reports that BMs are watery and an orange color and other times a green color. 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 Required: No Accompanied by: Self / Same As Patient Allergies No Known Allergies [No Known Allergies*] Allergy (Verified 12/06/23 16:29) HPI HPI 8 WEEK FOLLOW UP: Details: Assessment & Plan (1) Irritable bowel syndrome: Code(s): K58.9 - Irritable bowel syndrome without diarrhea Category: Medical (2) GERD (gastroesophageal reflux disease): Code(s): K21.9 - Gastro-esophageal reflux disease without esophagitis Category: Medical Qualifiers: Esophagitis presence: without esophagitis Qualified Code(s): K21.9 - Gastro-esophageal reflux disease without esophagitis (3) Intestinal malabsorption following gastrectomy: Code(s): K91.2 - Postsurgical malabsorption, not elsewhere classified; Z90.3 - Acquired absence of stomach [part of] Category: Medical (4) Dysphagia: Code(s): R13.10 - Dysphagia, unspecified Category: Medical (5) Pre-op evaluation: Code(s): Z01.818 - Encounter for other preprocedural examination Category: Medical Plan She is again having dyaphagia of dry foods like bread and things like rice. They are sticking mid sternally and she will have to cough it back up. Sometimes drinking water will hep to pass it, sometimes not. She had a dilatation in 2020 that she says helped, but there also is a ? of acalasia or esophageal dysmotility. She does have a 3 mm hiatal hernia. I think another EGD would be in order. There are no prior problems with anesthesia or sedation. She denies any cardiac or respiratory problems. There are no infectious disease problems. She is also having some episodic diarrhea and concerns her because the stool is colored yellow to orange in color. This is bile and I am uncertain why this is happening as she still has a gallbladder. However she does find that her stomach problems or somewhat relieved with the dicyclomine but she did not understand that she could take this multiple times a day. I encouraged her to do so as this may slow down the diarrhea and help her with her symptoms. If not we can consider adding a bile binding agent. She continues on Reglan 5 mg 4 times a day, dicyclomine that is available to her 4 times a day, imipramine 25 mg at bedtime, Creon 2 tabs twice a day, and simethicone 4 times a day as needed along with her omeprazole 40 mg twice a day. Return office visit in 8 weeks Orders: Orders EGD with [facility] - GI Use Only Today R13.10 - Dysphagia, unspecified EGD 03/11/2024 Biopsy TODAY'S VISIT She did not try taking the bentyl tid, so I again encourage her to do this as she again says she did not understand that she could take it even when she was not in pain. I again explained this and she promises me she will do this to help with the mustard colored/diarrheal stools and the cramping she is experiencing on the right side of her abdomen. She continues on Reglan 5 mg 4 times a day, dicyclomine that is available to her 4 times a day, imipramine 25 mg at bedtime, Creon 2 tabs twice a day, and simethicone 4 times a day as needed along with her omeprazole 40 mg twice a day. She is aware of her endoscopy and is booked in February. ROV 6 weeks. 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 Nausea and vomiting Rectal spasm Abdominal cramping Diarrhea Esophageal dysmotility Constipation History of colon polyps (~2015) Incarcerated hiatal hernia Nausea Intestinal malabsorption following gastrectomy Shoulder pain, right Neck pain Polyarthralgia Cervical radiculopathy Hypercholesterolemia Obesity (BMI 30-39.9) Insomnia Vitamin D deficiency PTSD (post-traumatic stress disorder) Polymyalgia HTN (hypertension) GERD (gastroesophageal reflux disease) Surgical History (Updated 12/06/23 @ 16:25 by CHRISTY Talamantes) S/P laparoscopic sleeve gastrectomy (~2016) History of repair of hiatal hernia History of History of sleeve gastrectomy (~2016) History of laparoscopic adjustable gastric banding (~2010) History of bilateral breast reduction surgery (~2011) History of esophagogastroduodenoscopy (EGD) (~2020) Hx of abdominoplasty History of excision of mass (~2016) History of colonoscopy (~2015) Status post panniculectomy (~2013) History of carpal tunnel release (~2001) History of neck surgery History of tubal ligation (~2000) Family History Father Diabetes Mother High blood pressure High cholesterol Dementia Daughter Healthy female Son No problems noted. Son High blood pressure High cholesterol Sister Cervical cancer Maternal Grandmother Cervical cancer Other Mental health disorder Social History Household Members: Children Housing: House Are you a primary medicare sales representative to a significant other at home: No Do you presently have visiting nurse or other home services: Yes ([employer]) Alcohol intake: current Alcohol intake frequency: holidays/special occasions only Patient Tobacco Use Status: Former Tobacco user Tobacco use type: Cigarette Years Smoked: stopped 1989 e-Cigarette/Vaping Use: Never Used Second Hand Smoke Exposure: No service: No Current occupational status: disabled Cognitive needs: Yes (cane) Hearing needs: No Vision needs: Yes (glasses) Female Reproductive History Menstrual Age of Menarche: 14 Review of Systems Const Denies fatigue, Denies fever(s), Denies night sweats, Denies poor appetite and Denies weight loss ENT Reports Normal hearing present, Denies dental pain, Denies dysphagia, Denies hearing loss, Denies mouth pain, Denies odynophagia, Denies throat swelling, Denies tongue swelling and Reports other (Dentition adequate) Card Reports no additional complaints Resp Reports no additional complaints GI Details: Denies abdominal pain, Denies melena, Denies bloating, Denies hematochezia, Denies constipation, Reports GI cramping, Denies dysphagia, Denies excessive flatus, Denies early satiety, Reports heartburn, Reports diarrhea, Denies nausea, Denies odynophagia, Denies vomiting and Denies hematemesis Skin/Breast Denies pruritus, Denies lesions, Denies rash and Denies jaundice Neuro Reports Normal hearing present and Denies Abnormal speech present Endo Denies fatigue Aller/Immun Denies throat swelling and Denies tongue swelling Physical Exam Const General: cooperative, no acute distress, well developed and well groomed Nutritional Appearance: well nourished and overweight Orientation/consciousness: oriented to person, oriented to place and oriented to time Limitations: No language barrier HEENT Head: Yes normocephalic and Yes atraumatic Eyes General: appearance normal, both eyes and all related structures Pupils: Equal, round and reactive pupils present Neck Neck: Yes normal visual inspection and Yes no lymphadenopathy Thyroid: Thyroid normal Resp Effort & Inspection: normal respiratory effort and able to speak in complete sentences Auscultation: clear to auscultation bilaterally Cardio Rate: regular rate Rhythm: regular rhythm Heart sounds: Normal, physiologic split S2 sound present Peripheral pulses: radial pulses present and posterior tibial pulses present GI Inspection: No distended, No Abdominal panniculus present and Yes obesity Palpation (GI): Soft to palpation, nontender, no guarding, not rigid and No hepatosplenomegaly present Percussion: Yes normal to percussion Auscultation: normal bowel sounds Rectal Exam - Female: deferred Skin General skin exam: no rashes or lesions noted, turgor normal, skin not dry, no jaundice, No spider nevi and no striae Rashes: no rashes Nails: normal Neuro General: oriented to person, oriented to place and oriented to time Cranial nerves: Yes Equal, round and reactive pupils present and Yes Normal hearing present Speech: No Abnormal speech present Extrem General: Yes normal to inspection, No clubbing, No cyanosis and No edema Psych Appearance: grossly normal and well kempt Mental Status: mental status grossly normal Speech and movement: Normal speech and movement present Affect: normal affect Attitude: cooperative Thought process: Normal thought process present and not confabulating Thought content: Normal thought content present Insight: Limited insight present (Psych) Judgement: Limited judgement present (Psych) Assessment & Plan Assessment & Plan (1) Irritable bowel syndrome: Code(s): K58.9 - Irritable bowel syndrome without diarrhea Category: Medical (2) Constipation: Code(s): K59.00 - Constipation, unspecified Category: Medical (3) GERD (gastroesophageal reflux disease): Code(s): K21.9 - Gastro-esophageal reflux disease without esophagitis Category: Medical Qualifiers: Esophagitis presence: without esophagitis Qualified Code(s): K21.9 - Gastro-esophageal reflux disease without esophagitis Plan She did not try taking the bentyl tid, so I again encourage her to do this as she again says she did not understand that she could take it even when she was not in pain. I again explained this and she promises me she will do this to help with the mustard colored/diarrheal stools and the cramping she is experiencing on the right side of her abdomen. She continues on Reglan 5 mg 4 times a day, dicyclomine that is available to her 4 times a day, imipramine 25 mg at bedtime, Creon 2 tabs twice a day, and simethicone 4 times a day as needed along with her omeprazole 40 mg twice a day. She is aware of her endoscopy and is booked in February. ROV 6 weeks. Coding Level of Care Code Est Pt Level 3 (23214) Diagnoses Irritable bowel syndrome K58.9 Constipation K59.00 Gastroesophageal reflux disease without esophagitis K21.9 Esophagitis presence: without esophagitis
[2023-12-06 16:24] VITALS: BP 123/87; PULSE 96
== END 2023-12-06 16:57 | disposition home or self-care (01) ==
PROVIDERS: PCP Internal Medicine; Visit Provider Nurse Practitioner
DX: K58.9 Irritable bowel syndrome, unspecified (principal); K59.00 Constipation, unspecified; K21.9 Gastro-esophageal reflux disease without esophagitis
CPT/HCPCS: 99213

== ENCOUNTER → 2023-12-06 16:20 | Outpatient (BNVA) | payer OTHER, SELFPAY | PROVIDERS: PCP Internal Medicine; Visit Provider Nurse Practitioner | DX: R10.11 Right upper quadrant pain (principal); R14.0 Abdominal distension (gaseous); K58.1 Irritable bowel syndrome with constipation; K21.9 Gastro-esophageal reflux disease without esophagitis; Z79.899 Other long term (current) drug therapy | CPT/HCPCS: 99212 ==

== ENCOUNTER 2023-12-10 17:01 | Outpatient (AMB) | payer OTHER, SELFPAY ==
--- NOTE | 2023-12-10 17:47 | A.OFFPC_ITS ---
Vital Signs 12/10/23 17:48 Height 5 ft 2 in Weight 167 lb BMI 30.5 BP 110/68 Blood Pressure Location Lt brachial Position Sitting Intake Visit Reasons: gerd Intake Note: Patient here for follow up GERD Site Manager Required: No Accompanied by: Self / Same As Patient Allergies No Known Allergies [No Known Allergies*] Allergy (Verified 12/10/23 17:49) Tobacco use date assessed: 05/23/23 Dental Screening Dental Screen Date: 12/10/23 Did you have a dental visit in the last 12 months?: Yes Did you have a dental problem in the last 6 months where you did not have access to dental care?: No Was dental information given to patient?: Patient has dentist HPI gerd HPI Details 58-year-old obese female with hypertensi on hypercholesterolemia GERD status post laparoscopic sleeve gastrectomy generalized anxiety disorder last seen in 05/12/2023. Patient had a tongue lesion and was referred to ear nose and throat. There was a question of seizures and was referred to Neurology. Patient's colonoscopy is up-to-date March 2022. Mammogram is up-to-date. Review of the notes has seen gastroenterology December 05 diagnosis of irritable bowel syndrome with constipation, GERD advised to take mental on Reglan imipramine and Creon as well as placed on simethicone. February endoscopy. Patient also has seen Neurology had an MRI of the brain negative no evidence of sleep apnea question of complex partial seizure activity through EEG placed on imipramine . [facility] Medical History (Updated 12/10/23 @ 18:33 by Demi Lr MD) Obesity (BMI 30-39.9) Dysphagia Forgetfulness Anemia Achalasia Snoring Hypersomnolence Thrush, oral Pre-op evaluation Diverticulitis Onychomycosis Plantar fasciitis of left foot Fatigue Dizziness Chest pain Palpitations SOB (shortness of breath) on exertion Rectal pain Right renal stone COVID-19 Rectal pain Nausea and vomiting Annual physical exam Overweight Abscess of finger of left hand Family history of polyps in the colon Impaired glucose tolerance Family history of dementia 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 Nausea and vomiting Rectal spasm Abdominal cramping Diarrhea Esophageal dysmotility Constipation History of colon polyps (~2015) Incarcerated hiatal hernia Nausea Intestinal malabsorption following gastrectomy Shoulder pain, right Neck pain Polyarthralgia Cervical radiculopathy Hypercholesterolemia Insomnia Vitamin D deficiency PTSD (post-traumatic stress disorder) Polymyalgia HTN (hypertension) GERD (gastroesophageal reflux disease) Surgical History S/P laparoscopic sleeve gastrectomy (~2016) History of repair of hiatal hernia History of History of sleeve gastrectomy (~2016) History of laparoscopic adjustable gastric banding (~2010) History of bilateral breast reduction surgery (~2011) History of esophagogastroduodenoscopy (EGD) (~2020) Hx of abdominoplasty History of excision of mass (~2016) History of colonoscopy (~2015) Status post panniculectomy (~2013) History of carpal tunnel release (~2001) History of neck surgery History of tubal ligation (~2000) Family History Father Diabetes Mother High blood pressure High cholesterol Dementia Daughter Healthy female Son No problems noted. Son High blood pressure High cholesterol Sister Cervical cancer Maternal Grandmother Cervical cancer Other Mental health disorder Social History Household Members: Children Housing: House Are you a primary care manager cna to a significant other at home: No Do you presently have visiting nurse or other home services: Yes ([employer]) Alcohol intake: current Alcohol intake frequency: holidays/special occasions only Patient Tobacco Use Status: Former Tobacco user Tobacco use type: Cigarette Years Smoked: stopped 1989 e-Cigarette/Vaping Use: Never Used Second Hand Smoke Exposure: No service: No Current occupational status: disabled Cognitive needs: Yes (cane) Hearing needs: No Vision needs: Yes (glasses) Female Reproductive History Menstrual Age of Menarche: 14 Questionnaire Thrive Questionnaire Date Thrive assessed: 06/20/23 ILENE-7 AMB Questionnaire ILENE-7 Date ILENE - 7 assessed: 06/20/23 Source: Developed by Drs. Redd Chu, Vicki Patel, Tito Álvarez and colleagues, with an educational marily from [employer]. Physical exam (Primary Care) Vital Signs: Last Vital Signs BP 110/68 12/10/23 17:48 BMI result Body Mass Index 30.5 Tobacco/Smoking Status: Tobacco use Status Tobacco use date assessed 05/23/23 12/10/23 17:54 Patient Tobacco Use Status Former Tobacco user 12/10/23 17:54 Tobacco use type Cigarette 12/10/23 17:54 e-Cigarette/Vaping Use Never Used 12/10/23 17:54 Thrive Assessment: Date of Thrive Assessment Date Thrive assessed 06/20/23 12/10/23 17:54 Const General: alert; No acute distress Eyes Conjunctivae: conjunctivae normal Resp Auscultation: clear to auscultation bilaterally Cardio Rate: regular rate Rhythm: regular rhythm GI Inspection: Yes normal to inspection Extrem General: Yes normal to inspection and No edema Assessment and Plan Assessment & Plan (1) Obesity (BMI 30-39.9): Comment: (Hx lap-band placed in 2010 & removed 2016 - s/p LSG 2017 Dr. Rojo) Code(s): E66.9 - Obesity, unspecified Plan: Diet and exercise, noted 20 lb weight loss (2) Cataract: Comment: eye and lasik cataract surgery 08/2023 Code(s): H26.9 - Unspecified cataract Qualifiers: Cataract type: other Laterality: bilateral Qualified Code(s): H26.8 - Other specified cataract Plan: did have the cataract surgery (3) Stabbing headache: Code(s): G44.85 - Primary stabbing headache Plan: Patient is being worked up by Neurology. Has had abnormal EEG. (4) Tongue lesion: Code(s): K14.8 - Other diseases of tongue Plan: Reminded about ear nose and throat referral. was reassured (5) HTN (hypertension): Code(s): I10 - Essential (primary) hypertension Qualifiers: Hypertension type: essential hypertension Qualified Code(s): I10 - Essential (primary) hypertension Plan: Continue with blood pressure medication. Decrease salt intake and exercise on lisinopril hydrochlorothiazide 20/25 mg once a day and metoprolol 25 mg once a day. due to dryness of mouth, advised to d/c lisinopril/HCTZ and only lisinopril (6) Hypercholesterolemia: Code(s): E78.00 - Pure hypercholesterolemia, unspecified Plan: Avoid fried foods, chicken skin, eggs, butter margarine, pastries and meat. Be it pork or beef they have a lot of cholesterol LDL goal of less than 130 and triglyceride of less than 150 on simvastatin 10 mg once a day (7) Generalized anxiety disorder: Comment: Dr. Mendieta Q month(June 2021) CHD Code(s): F41.1 - Generalized anxiety disorder Plan: Continue with counseling and therapy on ziprasidone, prazosin imipramine fluoxetine clonazepam and Buprorion Medications: New cholecalciferol (vitamin D3) 125 mcg PO DAILY 90 caps 2RF lisinopril 20 mg PO DAILY 90 tabs 2RF I10 - Essential (primary) hypertension Discontinued lisinopril-hydrochlorothiazide 20-25 mg Discontinued Reason: Doctor's Order 1 tab PO DAILY 90 caps 2RF Coding Level of Care Code Est Pt Level 4 (02637) Diagnoses Obesity (BMI 30-39.9) E66.9 Other cataract of both eyes H26.8 Cataract type: other Laterality: bilateral Stabbing headache G44.85 Tongue lesion K14.8 Essential hypertension I10 Hypertension type: essential hypertension Hypercholesterolemia E78.00 Generalized anxiety disorder F41.1
[2023-12-10 17:48] VITALS: BP 110/68; BMI 30.5
== END 2023-12-10 18:37 | disposition home or self-care (01) ==
PROVIDERS: PCP Internal Medicine; Visit Provider Internal Medicine
DX: H26.8 Other specified cataract (principal); E66.9 Obesity, unspecified; Z68.30 Body mass index [BMI] 30.0-30.9, adult; G44.85 Primary stabbing headache; K14.8 Other diseases of tongue; I10 Essential (primary) hypertension; E78.00 Pure hypercholesterolemia, unspecified; F41.1 Generalized anxiety disorder
CPT/HCPCS: 99214

== ENCOUNTER 2024-01-09 14:22 | Outpatient (AMB) | payer OTHER, SELFPAY ==
--- NOTE | 2024-01-09 14:32 | MHC.OFFVIS ---
Vital Signs 01/09/24 14:34 Height 5 ft 2 in Weight 163 lb 2.273 oz BMI 29.8 BP 153/101 H Blood Pressure Location Lt brachial Position Sitting Pulse 91 Intake Visit Reasons: 6 week FUV. Intake Note: Hannah presents to in office follow up of IBS. CC: Patient c/o RUQ abdominal pain with radiation to RLQ abdomen and LLQ abdomen. When she gets this pain she reports lower back pain as well. She c/o nausea, vomiting, dry mouth, poor appetite, and constipation alternating with loose stools sometimes. 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: No Accompanied by: Self / Same As Patient Allergies No Known Allergies [No Known Allergies*] Allergy (Verified 01/09/24 14:49) HPI HPI 6 week FUV.: Details: Assessment & Plan (1) Irritable bowel syndrome: Code(s): K58.9 - Irritable bowel syndrome without diarrhea Category: Medical (2) Constipation: Code(s): K59.00 - Constipation, unspecified Category: Medical (3) GERD (gastroesophageal reflux disease): Code(s): K21.9 - Gastro-esophageal reflux disease without esophagitis Category: Medical Qualifiers: Esophagitis presence: without esophagitis Qualified Code(s): K21.9 - Gastro-esophageal reflux disease without esophagitis Plan She did not try taking the bentyl tid, so I again encourage her to do this as she again says she did not understand that she could take it even when she was not in pain. I again explained this and she promises me she will do this to help with the mustard colored/diarrheal stools and the cramping she is experiencing on the right side of her abdomen. She continues on Reglan 5 mg 4 times a day, dicyclomine that is available to her 4 times a day, imipramine 25 mg at bedtime, Creon 2 tabs twice a day, and simethicone 4 times a day as needed along with her omeprazole 40 mg twice a day. She is aware of her endoscopy and is booked in February. ROV 6 weeks. EGD 03/11/2024 BIOPSY HIDA SCAN TODAYS VISIT SHE HAS BEEN TAKING THE DICYCLOMINE 3 times a day 2 tablets as described in our last visit. However, she has been having worse pain that tends to start right below the ribs in the right upper quadrant travel down to the right lower quadrant and then to the umbilicus and to her back. This has been extremely severe. It is not related to eating or moving her bowels it tends to come out of the blue and she can not really identify any exacerbating or remitting factors. She describes the pain as strong and a burning sensation. Since the pain has not been helped at all with the dicyclomine, and she is complaining of a severely dry mouth I think will stop this medication. If she finds the pain is worse without it she can of course restart it but this may help with the dry mouth sensation. We also do not want to persist with the medication that isn't providing any therapeutic value. She continues on her imipramine at bedtime. Her mother had a cholecystectomy so I think we should add a HIDA scan to see if her gallbladder is involved in terms of biliary dyskinesia. She did have an ultrasound in the recent past that did not show any gallstones and the gallbladder was physiologically contracted. Prior CT scans did not show any gallstones either or any other abnormality of the abdomen. She continues to move her bowels well utilizing the senna and she denies any diarrhea. She is also having of increasing episodes of acid reflux. She can not really relate this to when she has the pain and it is not really certain why this is happening with it certainly could be a gallbladder problem. ROV 5 weeks. 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 Nausea and vomiting Rectal spasm Abdominal cramping Diarrhea Esophageal dysmotility Constipation History of colon polyps (~2015) Incarcerated hiatal hernia Nausea Intestinal malabsorption following gastrectomy Shoulder pain, right Neck pain Polyarthralgia Cervical radiculopathy Hypercholesterolemia Insomnia Vitamin D deficiency PTSD (post-traumatic stress disorder) Polymyalgia HTN (hypertension) GERD (gastroesophageal reflux disease) Surgical History S/P laparoscopic sleeve gastrectomy (~2016) History of repair of hiatal hernia History of History of sleeve gastrectomy (~2016) History of laparoscopic adjustable gastric banding (~2010) History of bilateral breast reduction surgery (~2011) History of esophagogastroduodenoscopy (EGD) (~2020) Hx of abdominoplasty History of excision of mass (~2016) History of colonoscopy (~2015) Status post panniculectomy (~2013) History of carpal tunnel release (~2001) History of neck surgery History of tubal ligation (~2000) Family History Father Diabetes Mother High blood pressure High cholesterol Dementia Daughter Healthy female Son No problems noted. Son High blood pressure High cholesterol Sister Cervical cancer Maternal Grandmother Cervical cancer Other Mental health disorder Social History Household Members: Children Housing: House Are you a primary children's zoo caretaker to a significant other at home: No Do you presently have visiting nurse or other home services: Yes ([employer]) Alcohol intake: current Alcohol intake frequency: holidays/special occasions only Patient Tobacco Use Status: Former Tobacco user Tobacco use type: Cigarette Years Smoked: stopped 1989 e-Cigarette/Vaping Use: Never Used Second Hand Smoke Exposure: No service: No Current occupational status: disabled Cognitive needs: Yes (cane) Hearing needs: No Vision needs: Yes (glasses) Female Reproductive History Menstrual Age of Menarche: 14 Review of Systems Const Denies fatigue, Denies fever(s), Denies night sweats, Denies poor appetite and Denies weight loss ENT Reports Normal hearing present, Denies dental pain, Denies dysphagia, Reports dry mouth, Denies hearing loss, Denies mouth pain, Denies odynophagia, Denies throat swelling, Denies tongue swelling and Reports other (Dentition adequate) Card Reports no additional complaints Resp Reports no additional complaints GI Details: Reports abdominal pain, Denies melena, Denies bloating, Denies hematochezia, Reports constipation, Denies GI cramping, Denies dysphagia, Denies excessive flatus, Denies early satiety, Reports heartburn, Denies diarrhea, Denies nausea, Denies odynophagia, Denies vomiting and Denies hematemesis Skin/Breast Denies pruritus, Denies lesions, Denies rash and Denies jaundice Neuro Reports Normal hearing present and Denies Abnormal speech present Endo Denies fatigue Aller/Immun Denies throat swelling and Denies tongue swelling Physical Exam Vital Signs: Last Vital Signs Pulse 91 01/09/24 14:34 BP 153/101 H 01/09/24 14:34 BMI result Body Mass Index 29.8 Const General: cooperative, no acute distress, well developed and well groomed Nutritional Appearance: well nourished and overweight Orientation/consciousness: oriented to person, oriented to place and oriented to time Limitations: No language barrier HEENT Head: Yes normocephalic and Yes atraumatic Eyes General: appearance normal, both eyes and all related structures Pupils: Equal, round and reactive pupils present Neck Neck: Yes normal visual inspection and Yes no lymphadenopathy Thyroid: Thyroid normal Resp Effort & Inspection: normal respiratory effort and able to speak in complete sentences Auscultation: clear to auscultation bilaterally Cardio Rate: regular rate Rhythm: regular rhythm Heart sounds: Normal, physiologic split S2 sound present Peripheral pulses: radial pulses present and posterior tibial pulses present GI Inspection: No distended, No Abdominal panniculus present and Yes obesity Palpation (GI): Soft to palpation, Tenderness to palpation present (GI) periumbilically, no guarding, not rigid and No hepatosplenomegaly present Percussion: Yes normal to percussion Auscultation: normal bowel sounds Rectal Exam - Female: deferred Skin General skin exam: no rashes or lesions noted, turgor normal, skin not dry, no jaundice, No spider nevi and no striae Rashes: no rashes Nails: normal Neuro General: oriented to person, oriented to place and oriented to time Cranial nerves: Yes Equal, round and reactive pupils present and Yes Normal hearing present Speech: No Abnormal speech present Extrem General: Yes normal to inspection, No clubbing, No cyanosis and No edema Psych Appearance: grossly normal and well kempt Mental Status: mental status grossly normal Speech and movement: Normal speech and movement present Affect: normal affect Attitude: cooperative Thought process: Circumstantial thought process present and not confabulating Thought content: Normal thought content present Insight: Limited insight present (Psych) Judgement: Limited judgement present (Psych) Assessment & Plan Assessment & Plan (1) RUQ abdominal pain: Code(s): R10.11 - Right upper quadrant pain Category: Medical (2) GERD (gastroesophageal reflux disease): Code(s): K21.9 - Gastro-esophageal reflux disease without esophagitis Category: Medical Qualifiers: Esophagitis presence: without esophagitis Qualified Code(s): K21.9 - Gastro-esophageal reflux disease without esophagitis (3) Irritable bowel syndrome: Code(s): K58.9 - Irritable bowel syndrome, unspecified Category: Medical (4) Constipation: Code(s): K59.00 - Constipation, unspecified Category: Medical (5) Legally blind: Code(s): H54.8 - Legal blindness, as defined in [place] Category: Medical Plan SHE HAS BEEN TAKING THE DICYCLOMINE 3 times a day 2 tablets as described in our last visit. However, she has been having worse pain that tends to start right below the ribs in the right upper quadrant travel down to the right lower quadrant and then to the umbilicus and to her back. This has been extremely severe. It is not related to eating or moving her bowels it tends to come out of the blue and she can not really identify any exacerbating or remitting factors. She describes the pain as strong and a burning sensation. Since the pain has not been helped at all with the dicyclomine, and she is complaining of a severely dry mouth I think will stop this medication. If she finds the pain is worse without it she can of course restart it but this may help with the dry mouth sensation. We also do not want to persist with the medication that isn't providing any therapeutic value. She continues on her imipramine at bedtime. Her mother had a cholecystectomy so I think we should add a HIDA scan to see if her gallbladder is involved in terms of biliary dyskinesia. She did have an ultrasound in the recent past that did not show any gallstones and the gallbladder was physiologically contracted. Prior CT scans did not show any gallstones either or any other abnormality of the abdomen. She continues to move her bowels well utilizing the senna and she denies any diarrhea. She is also having of increasing episodes of acid reflux. She can not really relate this to when she has the pain and it is not really certain why this is happening with it certainly could be a gallbladder problem. ROV 5 weeks. Orders: Orders NM hepatobiliary w pharm 01/09/24 R10.11 - Right upper quadrant pain Medications: On Hold dicyclomine Hold Comment: Doctor's Order 40 mg (2 x 20 mg) PO QID PRN 240 tabs 3RF for abdominal pain R10.9 - Unspecified abdominal pain, R19.7 - Diarrhea, unspecified Coding Level of Care Code Est Pt Level 3 (33523) Diagnoses RUQ abdominal pain R10.11 Gastroesophageal reflux disease without esophagitis K21.9 Esophagitis presence: without esophagitis Irritable bowel syndrome K58.9 Constipation K59.00 Legally blind H54.8
[2024-01-09 14:34] VITALS: BP 153/101; PULSE 91; BMI 29.8
== END 2024-01-09 15:27 | disposition home or self-care (01) ==
PROVIDERS: PCP Internal Medicine; Visit Provider Nurse Practitioner
DX: R10.11 Right upper quadrant pain (principal); K21.9 Gastro-esophageal reflux disease without esophagitis; K58.9 Irritable bowel syndrome, unspecified; K59.00 Constipation, unspecified; H54.8 Legal blindness, as defined in USA
CPT/HCPCS: 99213

== ENCOUNTER → 2024-01-09 14:22 | Outpatient (BNVA) | payer OTHER, SELFPAY | PROVIDERS: PCP Internal Medicine; Visit Provider Nurse Practitioner | DX: K58.1 Irritable bowel syndrome with constipation (principal); K21.9 Gastro-esophageal reflux disease without esophagitis; R10.11 Right upper quadrant pain | CPT/HCPCS: 99212 ==

== ENCOUNTER 2024-01-29 10:12 | Outpatient (AMB) | payer OTHER, SELFPAY ==
--- NOTE | 2024-01-29 10:25 | A.OFFPC_ITS ---
Vital Signs 01/29/24 10:26 Height 5 ft 2 in Weight 159 lb 8 oz BMI 29.2 BP 130/80 Blood Pressure Location Lt brachial Position Sitting Pulse 93 Pulse Source Pulse Oximeter Pulse Oximetry (%) 98 Oxygen Delivery Method Room Air Intake Visit Reasons: Annual Exam Intake Note: Patient is here today for a physical. 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 Transport Specialist: Present Accompanied by: Grand Child Allergies No Known Allergies [No Known Allergies*] Allergy (Verified 01/29/24 10:25) Medication List - Last Reconciled 01/29/24 by Demi Lr MD acetaminophen (Tylenol Extra Strength) 1,000 mg PO Q6H PRN ascorbic acid (vitamin C) (Vitamin C) 500 mg PO DAILY bupropion HCl XL 300 mg PO QAM cholecalciferol (vitamin D3) 125 mcg PO DAILY clonazepam 0.5 mg PO DAILY PRN dicyclomine 40 mg (2 x 20 mg) PO QID PRN fluoxetine orally every morning; folic acid 1 mg PO DAILY imipramine HCl 25 mg PO BEDTIME lactobacillus combination no.9 (Adult 50 Plus Probiotic) 4,000 mmu cells PO DAILY loqgos-bzqczkkd-gzbcsgx 36,000-114,000- 180,000 unit (Creon) 1 cap PO QID lisinopril 20 mg PO DAILY meloxicam 7.5 mg PO DAILY metoclopramide HCl 5 mg PO QID metoprolol succinate ER 25 mg PO DAILY 30 days yoygyicyhjaj-linqkspw-xneqlk 1 tab PO DAILY nystatin 10 mL PO DAILY PRN 7 days omeprazole 40 mg (2 x 20 mg) PO BID prazosin 2 mg (2 x 1 mg) PO BEDTIME 30 days semaglutide (weight loss) (Wegovy) 0.25 mg subcut QWEEK sennosides (senna) 34.4 mg (4 x 8.6 mg) PO BEDTIME simvastatin 10 mg PO BEDTIME ziprasidone HCl 20 mg PO BEDTIME 30 days Tobacco use date assessed: 01/29/24 Dental Screening Dental Screen Date: 12/10/23 HPI Annual Exam HPI Details 58-year-old overweight female with a his tory of cataracts hypertension hypercholesterolemia generalized anxiety disorder last seen in November 2023. Patient's colon test was done in 04/11/2022 mammogram is up-to-date. Review of the notes patient saw gastroenterology January 08 for follow-up on IBS patient on Bentyl Reglan dicyclomine imipramine simethicone, omeprazole and Creon. Patient was advised to get a hepatobiliary scan. occ dizzy - fall in bathroom , 2 weeks ago. dysphagia will be having egd in 02/2024 [facility] Medical History (Updated 01/29/24 @ 10:38 by Demi Lr MD) Overweight (BMI 25.0-29.9) Annual physical exam Obesity (BMI 30-39.9) Dysphagia Forgetfulness Anemia Achalasia Snoring Hypersomnolence Thrush, oral Pre-op evaluation Diverticulitis Onychomycosis Plantar fasciitis of left foot Fatigue Dizziness Chest pain Palpitations SOB (shortness of breath) on exertion Rectal pain Right renal stone COVID-19 Rectal pain Nausea and vomiting Overweight Abscess of finger of left hand Family history of polyps in the colon Impaired glucose tolerance Family history of dementia 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 Nausea and vomiting Rectal spasm Abdominal cramping Diarrhea Esophageal dysmotility Constipation History of colon polyps (~2015) Incarcerated hiatal hernia Nausea Intestinal malabsorption following gastrectomy Shoulder pain, right Neck pain Polyarthralgia Cervical radiculopathy Hypercholesterolemia Insomnia Vitamin D deficiency PTSD (post-traumatic stress disorder) Polymyalgia HTN (hypertension) GERD (gastroesophageal reflux disease) Surgical History (Updated 01/29/24 @ 10:32 by Demi Lr MD) S/P laparoscopic sleeve gastrectomy (~2016) History of repair of hiatal hernia History of History of sleeve gastrectomy (~2016) History of laparoscopic adjustable gastric banding (~2010) History of bilateral breast reduction surgery (~2011) History of esophagogastroduodenoscopy (EGD) (~2020) Hx of abdominoplasty History of excision of mass (~2016) History of colonoscopy (~2015) Status post panniculectomy (~2013) History of carpal tunnel release (~2001) History of neck surgery History of tubal ligation (~2000) Family History Father Diabetes Mother High blood pressure High cholesterol Dementia Daughter Healthy female Son No problems noted. Son High blood pressure High cholesterol Sister Cervical cancer Maternal Grandmother Cervical cancer Other Mental health disorder Social History (Updated 01/29/24 @ 10:41 by Demi Lr MD) Household Members: Children Housing: House Are you a primary acute care registered nurse to a significant other at home: No Do you presently have visiting nurse or other home services: Yes ([employer]) Alcohol intake: never Patient Tobacco Use Status: Former Tobacco user Tobacco use type: Cigarette Years Smoked: 1989 e-Cigarette/Vaping Use: Never Used Second Hand Smoke Exposure: No service: No Current occupational status: disabled Cognitive needs: Yes (cane) Hearing needs: No Vision needs: Yes (glasses) Female Reproductive History Menstrual Age of Menarche: 14 Questionnaire PHQ-9 Over the last 2 weeks, how often have you been bothered by any of the following problems? 1. Little interest or pleasure in doing things: more than half the days 2. Feeling down, depressed, or hopeless: several days 3. Trouble falling or staying asleep, or sleeping too much: several days 4. Feeling tired or having little energy: several days 5. Poor appetite or overeating: more than half the days 6. Feeling bad about yourself - or that you are a failure or have let yourself or your family down: several days 7. Trouble concentrating on things, such as reading the newspaper or watching television: more than half the days 8. Moving or speaking so slowly that other people could have noticed. Or the opposite - being so fidgety or restless that you have been moving around a lot more than usual: not at all 9. Thoughts that you would be better off or of hurting yourself in some way: not at all Total score: 10 Depression Screening Interpretation: Positive Depression Screening Done: Yes Source: Developed by Drs. Redd Chu, Vicki Patel, Tito Álvarez and colleagues, with an educational marily from [employer]. Thrive Questionnaire Date Thrive assessed: 01/29/24 I am a: Patient What is your living situation today?: I have a steady place to live Within the past 12 months, did the food you bought not last and you didn't have the money to get more?: Never true Within the past 12 months, did you worry whether your food would run out before you got money to buy more?: Never true Do you have trouble paying for medicines?: No Do you have trouble getting transportation to medical appointments?: Yes Do you have trouble paying your heating and electricity bill?: Yes Do you have trouble taking care of your child, family member or friend?: No Do you have trouble with day-to-day activities such as bathing, preparing meals, shopping, managing finances, etc.?: No Are you currently unemployed and looking for a job?: No Are you interested in more education?: No Please select the resources that you would like help with: Transportation and Utilities Currently or been in a relationship where the following occur: No concerns reported THRIVE Score: 2 AUDIT C Alcohol Use Questionnaire (AUDIT-C) 1. How often do you have a drink containing alcohol?: Never 3. How often do you have six or more drinks on one occasion?: Never Total Score: 0 ILENE-7 AMB Questionnaire ILENE-7 Date ILNEE - 7 assessed: 01/29/24 Feeling nervous, anxious, or on edge: 1 = Several days Not being able to stop or control worryin = Nearly every day Worrying too much about different things: 3 = Nearly every day Trouble relaxin = Nearly every day Being so restless that it is hard to sit still: 1 = Several days Becoming easily annoyed or irritable: 1 = Several days Feeling afraid as if something awful might happen: 2 = More than half the days Total ILENE-7 score (0-4 normal; 5-9 mild; 10-14 moderate; 15-21 severe): 14 Source: Developed by Drs. Redd Chu, Vicki Patel, Tito Álvarez and colleagues, with an educational marily from [employer]. Review of Systems Const Denies poor appetite and Denies weakness Eyes Denies no additional complaints ENT Reports Normal hearing present, Denies dizziness, Denies nasal congestion, Denies tinnitus and Denies sore throat Card Denies chest pain, Denies syncope, Denies rapid heart rate and Denies dyspnea Resp Denies cough and Denies dyspnea GI Denies change in stool character, Reports constipation, Denies diarrhea, Denies nausea and Denies vomiting Denies urinary frequency, Denies difficulty voiding and Denies dysuria Neuro Reports Normal hearing present, Denies confusion, Denies dizziness, Denies syncope and Denies weakness Psych Denies confusion Physical exam (Primary Care) Vital Signs: Last Vital Signs Pulse 93 01/29/24 10:26 BP 130/80 01/29/24 10:26 Pulse Ox 98 01/29/24 10:26 Oxygen Delivery Method Room Air 01/29/24 10:26 BMI result Body Mass Index 29.2 Tobacco/Smoking Status: Tobacco use Status Tobacco use date assessed 01/29/24 01/29/24 10:32 Patient Tobacco Use Status Former Tobacco user 01/29/24 10:41 Tobacco use type Cigarette 01/29/24 10:41 e-Cigarette/Vaping Use Never Used 01/29/24 10:41 PHQ-9: PHQ-9 Score PHQ-9: Total score 10 01/29/24 10:32 Depression Screening Interpretation: Positive Thrive Assessment: Date of Thrive Assessment Date Thrive assessed 01/29/24 01/29/24 10:32 Currently or been in a relationship where the following occur: No concerns reported Const General: No confusion Orientation/consciousness: No confusion HENMT Head: Yes normocephalic Ears: external ears normal and TM's normal bilaterally Face and sinus: Yes normal facial exam Mouth: moist mucous membranes Throat: Yes tonsils normal Eyes Conjunctivae: conjunctivae normal Pupils: Equal, round and reactive pupils present and Pupil accommodation reflex normal Direct Ophthalmoscopy: normal light reflex Neck Neck: No lymphadenopathy Thyroid: Thyroid normal Chest Chest palpation & inspection: normal inspection of the chest Resp Effort & Inspection: normal respiratory effort and no audible wheezes Auscultation: clear to auscultation bilaterally, no crackles, no wheezes and lung sounds not diminished Cardio Rate: regular rate Rhythm: regular rhythm Peripheral pulses: radial pulses present and dorsalis pedis present GI Palpation (GI): no masses Auscultation: normal bowel sounds and normoactive bowel sounds Rectal Exam - Female: deferred Skin General skin exam: no rashes or lesions noted Rashes: no rashes Neuro General: No confusion Cranial nerves: Yes Equal, round and reactive pupils present and Yes Normal hearing present Cognition (Neuro): normal cognition Gait exam (Neuro): Normal gait present Motor exam (neuro): 5/5 motor strength present throughout Deep tendon reflexes (DTR's): Right brachioradialis reflex intensity grade: 2+, Left brachioradialis reflex intensity grade: 2+, Right patellar reflex intensity grade: 2+ and Left patellar reflex intensity grade: 2+ Extrem General: No edema Office Procedures Flu Questionnaire Does the patient have a severe egg allergy?: No Does the patient have severe life threatening allergies?: No Does the patient have a fever or illness today?: No Has the patient ever had Guillain-[place] Syndrome?: No Has the patient ever had any past reaction to a flu shot?: No Immunizations Fluarix Triv [id number] (PF) 45 mcg (15 mcg x 3)/0.5 mL IM syringe Performing Provider: Demi Lr MD [facility] Administered by: Mimi Arellano LPN on 01/29/24 11:01 Dose Route Admin Location Dispensed Lot Number Expiration Date NDC Gis Physical Scientist 0.5 mL IM Left Deltoid 0.5 mL [id number] 10/20/24 [id number] [employer] VIS Given Date VIS Provided VIS Publication Date 01/29/24 Single Vaccine 20 Eligibility Eligibility Date Funding Source Not [facility] Eligible 01/29/24 Private Coding Level of Care Code Est Pt Prev Care 40-64y(37881) Diagnoses Annual physical exam Z00.00 Gallbladder contraction K82.0 Essential hypertension I10 Hypertension type: essential hypertension Hypercholesterolemia E78.00 History of sleeve gastrectomy Z90.3 Gastroesophageal reflux disease without esophagitis K21.9 Esophagitis presence: without esophagitis Generalized anxiety disorder F41.1 Assessment & Plan Assessment & Plan (1) Annual physical exam: Code(s): Z00.00 - Encounter for general adult medical examination without abnormal findings Category: Medical Plan: Patient is advised to eat healthy, keep well hydrated, keep active and have adequate sleep. (2) Gallbladder contraction: Code(s): K82.0 - Obstruction of gallbladder Category: Medical Plan: Patient is being follow-up Gastroenterology and planned HIDA scan (3) HTN (hypertension): Code(s): I10 - Essential (primary) hypertension Category: Medical Qualifiers: Hypertension type: essential hypertension Qualified Code(s): I10 - E ssential (primary) hypertension Plan: Continue with blood pressure medication. Decrease salt intake and exercise on lisinopril 20 mg once a day metoprolol 25 mg once a day (4) Hypercholesterolemia: Code(s): E78.00 - Pure hypercholesterolemia, unspecified Category: Medical Plan: Avoid fried foods, chicken skin, eggs, butter margarine, pastries and meat. Be it pork or beef they have a lot of cholesterol LDL goal of less than 130 and triglyceride of less than 150 on simvastatin 10 mg at bedtime blood work requested (5) History of sleeve gastrectomy: Onset Date: ~2016 Comment: (laparoscopic gastric sleeve surgery - Dr. Rojo - 12/2016) Code(s): Z90.3 - Acquired absence of stomach [part of] Category: Surgical Plan: Continue to follow-up with bariatric surgeon (6) GERD (gastroesophageal reflux disease): Code(s): K21.9 - Gastro-esophageal reflux disease without esophagitis Category: Medical Qualifiers: Esophagitis presence: without esophagitis Qualified Code(s): K21.9 - Gastro-esophageal reflux disease without esophagitis Plan: Avoid the foods that causes that usually spicy foods, tomato products, juices, coffee, soda and foods that your sensitive to. After eating do not lie down, allow 3-4 hours before in lie down. And keep the head of bed above 30 degrees to avoid the acid from going up. (7) Generalized anxiety disorder: Comment: Dr. Mendieta Q month(June 2021) CHD Code(s): F41.1 - Generalized anxiety disorder Category: Medical Plan: Continue with counseling and therapy Orders: Orders Complete Blood Count Auto Diff Today E78.00 - Pure hypercholesterolemia, unspecified Comprehensive Met. Panel Today E78.00 - Pure hypercholesterolemia, unspecified Free T4 (Free Thyroxine) Today E78.00 - Pure hypercholesterolemia, unspecified Thyroid Stimulating Hormone Today E78.00 - Pure hypercholesterolemia, unspecified Lipid Panel Today E78.00 - Pure hypercholesterolemia, unspecified Vitamin B12 and Folate Today E78.00 - Pure hypercholesterolemia, unspecified Vitamin D 25-OH Total Today E78.00 - Pure hypercholesterolemia, unspecified UA CC w/rflx Micro + Cult Today E78.00 - Pure hypercholesterolemia, unspecified, R30.0 - Dysuria Vitamin B1 Today E78.00 - Pure hypercholesterolemia, unspecified Vitamin A Today E78.00 - Pure hypercholesterolemia, unspecified Influenza [id number] Immunization Today Z23 - Encounter for immunization Medications: New Fluarix Triv [id number] (PF) (flu vacc [id number] 6mos up(PF)) 0.5 mL IM ONCE 0.5 mL 0RF NS Z23 - Encounter for immunization
[2024-01-29 10:26] VITALS: BP 130/80; PULSE 93; O2SAT 98; BMI 29.2
== END 2024-01-29 11:22 | disposition home or self-care (01) ==
PROVIDERS: PCP Internal Medicine; Visit Provider Internal Medicine
DX: Z00.00 Encounter for general adult medical examination without abnormal findings (principal); K82.0 Obstruction of gallbladder; I10 Essential (primary) hypertension; E78.00 Pure hypercholesterolemia, unspecified; Z90.3 Acquired absence of stomach [part of]; K21.9 Gastro-esophageal reflux disease without esophagitis; F41.1 Generalized anxiety disorder; Z23 Encounter for immunization

== ENCOUNTER → 2024-01-29 10:12 | Outpatient (BNVA) | payer OTHER, SELFPAY | PROVIDERS: PCP Internal Medicine; Visit Provider Internal Medicine | DX: Z00.01 Encounter for general adult medical examination with abnormal findings (principal); Z23 Encounter for immunization; K82.0 Obstruction of gallbladder; I10 Essential (primary) hypertension; E78.00 Pure hypercholesterolemia, unspecified; K21.9 Gastro-esophageal reflux disease without esophagitis; F41.1 Generalized anxiety disorder; Z90.3 Acquired absence of stomach [part of] | CPT/HCPCS: 90471; 90656; 96127; 99396 ==

== ENCOUNTER → 2024-02-15 07:55 | Outpatient (REF) | payer OTHER, SELFPAY ==
--- NOTE | ~2024-02-15 | NM_ITS ---
EXAMINATION: BILIARY TRACT IMAGING STUDY WITH CCK CLINICAL INFORMATION: Right upper quadrant pain.. COMPARISON: No previous biliary scan is available for comparison. Abdominal ultrasound dated 09/06/[address] scan of the abdomen and pelvis dated 04/06/2022 are available for comparison.. TECHNIQUE: Serial gamma scintillation camera images were obtained over the abdomen for a total observation period of 92 minutes following the intravenous administration of 5 mCi Tc-99m mebrofenin. FINDINGS: There is good concentration of activity in the liver by 5 minutes post injection. Biliary activity is visualized by 15 minutes. The gallbladder is well visualized by 30 minutes. Small bowel is well visualized by 35 minutes. At 60 minutes post radiopharmaceutical injection, a 30-minute infusion of 1.4 micrograms Sincalide was then begun and an additional 40 minutes of images were obtained. There is good emptying of the gallbladder. By the end of the study there is good clearance of activity from the liver and visualization of diffuse small bowel activity. The calculated gallbladder ejection fraction is 82% (normal gallbladder ejection fraction is greater than 35%). NM/NM hepatobiliary w pharm IMPRESSION: Visualization of the gallbladder is evidence of a patent cystic duct and strong evidence against the diagnosis of acute cholecystitis. The common bile duct is patent. Gallbladder emptying and ejection fraction are normal. Liver function appears normal. Electronically signed by: Guzman Erwin MD 02/18/2024 03:42 PM EDT
== END ==
LOC: HO.NUCMED 07:55
PROVIDERS: PCP Internal Medicine; Visit Provider Nurse Practitioner
DX: R10.11 Right upper quadrant pain (principal)
CPT/HCPCS: 78227; A9537; J2805

== ENCOUNTER → 2024-02-21 14:52 | Outpatient (BNVA) | payer OTHER, SELFPAY | PROVIDERS: PCP Internal Medicine; Visit Provider Nurse Practitioner | DX: K58.9 Irritable bowel syndrome, unspecified (principal); K59.00 Constipation, unspecified; K21.9 Gastro-esophageal reflux disease without esophagitis; R19.7 Diarrhea, unspecified; R10.11 Right upper quadrant pain | CPT/HCPCS: 99212 ==

== ENCOUNTER → 2024-02-21 14:52 | Outpatient (AMB) | payer OTHER, SELFPAY ==
--- NOTE | 2024-02-21 14:53 | A.OFFVIS_ITS ---
Vital Signs 02/21/24 14:59 Height 5 ft 2 in Weight 156 lb 15.506 oz BMI 28.7 BP 151/104 H Blood Pressure Location Lt brachial Position Sitting Pulse 94 Intake Visit Reasons: 5 week follow up Intake Note: Hannah presents to in office follow up of HIDA scan and IBS. CC: Patient continues to c/o RUQ abdominal burning pain with radiation to her mid abdomen and nausea. Allergies No Known Allergies [No Known Allergies*] Allergy (Verified 03/13/24 15:33) HPI HPI 5 week follow up: Details: Assessment & Plan (1) RUQ abdominal pain: Code(s): R10.11 - Right upper quadrant pain Category: Medical (2) GERD (gastroesophageal reflux disease): Code(s): K21.9 - Gastro-esophageal reflux disease without esophagitis Category: Medical Qualifiers: Esophagitis presence: without esophagitis Qualified Code(s): K21.9 - Gastro-esophageal reflux disease without esophagitis (3) Irritable bowel syndrome: Code(s): K58.9 - Irritable bowel syndrome, unspecified Category: Medical (4) Constipation: Code(s): K59.00 - Constipation, unspecified Category: Medical (5) Legally blind: Code(s): H54.8 - Legal blindness, as defined in [place] Category: Medical Plan SHE HAS BEEN TAKING THE DICYCLOMINE 3 times a day 2 tablets as described in our last visit. However, she has been having worse pain that tends to start right b elow the ribs in the right upper quadrant travel down to the right lower quadrant and then to the umbilicus and to her back. This has been extremely severe. It is not related to eating or moving her bowels it tends to come out of the blue and she can not really identify any exacerbating or remitting factors. She describes the pain as strong and a burning sensation. Since the pain has not been helped at all with the dicyclomine, and she is complaining of a severely dry mouth I think will stop this medication. If she finds the pain is worse without it she can of course restart it but this may help with the dry mouth sensation. We also do not want to persist with the medication that isn't providing any therapeutic value. She continues on her imipramine at bedtime. Her mother had a cholecystectomy so I think we should add a HIDA scan to see if her gallbladder is involved in terms of biliary dyskinesia. She did have an ultrasound in the recent past that did not show any gallstones and the gallbladder was physiologically contracted. Prior CT scans did not show any gallstones either or any other abnormality of the abdomen. She continues to move her bowels well utilizing the senna and she denies any diarrhea. She is also having of increasing episodes of acid reflux. She can not really relate this to when she has the pain and it is not really certain why this is happening with it certainly could be a gallbladder problem. ROV 5 weeks. Orders: Orders NM hepatobiliary w pharm 01/09/24 R10.11 - Right upper quadrant pain Medications: On Hold dicyclomine Hold Comment: Doctor's Order 40 mg (2 x 20 mg) PO QID PRN 240 tabs 3RF for abdominal pain R10.9 - Unspecified abdominal pain, R19.7 - Diarrhea, unspecified HIDA scan 02/18/24 FINDINGS: There is good concentration of activity in the liver by 5 minutes post injection. Biliary activity is visualized by 15 minutes. The gallbladder is well visualized by 30 minutes. Small bowel is well visualized by 35 minutes. At 60 minutes post radiopharmaceutical injection, a 30-minute infusion of 1.4 micrograms Sincalide was then begun and an additional 40 minutes of images were obtained. There is good emptying of the gallbladder. By the end of the study there is good clearance of activity from the liver and visualization of diffuse small bowel activity. The calculated gallbladder ejection fraction is 82% (normal gallbladder ejection fraction is greater than 35%). NM/NM hepatobiliary w pharm IMPRESSION: Visualization of the gallbladder is evidence of a patent cystic duct and strong evidence against the diagnosis of acute cholecystitis. The common bile duct is patent. Gallbladder emptying and ejection fraction are normal. Liver function appears normal. EGD 03/11/2024 Biopsy TODAY'S VISIT Her stool culture came back positive for yessinia entero colitis, Dr. Alexandra sent Bactrim The rt sided burnidng continues. THe HIDA was negative. SHe did find relief with bentyl, but stopped it r/t dry mouth - but the dry mouth continued and she would rather restart the med. 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 Rectal spasm Abdominal cramping Diarrhea Esophageal dysmotility Overweight Abscess of finger of left hand Constipation History of colon polyps (~2015) Incarcerated hiatal hernia Achalasia Family history of polyps in the colon Dysphagia Nausea Snoring Hypersomnolence Intestinal malabsorption following gastrectomy Shoulder pain, right Neck pain Polyarthralgia Plantar fasciitis of left foot Anemia Impaired glucose tolerance Cervical radiculopathy Hypercholesterolemia Obesity (BMI 30-39.9) Insomnia Vitamin D deficiency PTSD (post-traumatic stress disorder) Polymyalgia HTN (hypertension) GERD (gastroesophageal reflux disease) Surgical History Hx of cataract extraction History of repair of hiatal hernia History of History of sleeve gastrectomy (~2016) History of laparoscopic adjustable gastric banding (~2010) History of bilateral breast reduction surgery (~2011) History of esophagogastroduodenoscopy (EGD) (~2020) Hx of abdominoplasty S/P laparoscopic sleeve gastrectomy (~2016) History of excision of mass (~2016) History of colonoscopy (~2015) Status post panniculectomy (~2013) History of carpal tunnel release (~2001) History of neck surgery History of tubal ligation (~2000) Family History Father Diabetes Mother High blood pressure High cholesterol Dementia Daughter Healthy female Son No problems noted. Son High blood pressure High cholesterol Sister Cervical cancer Maternal Grandmother Cervical cancer Other Mental health disorder Social History Household Members: Other Household Members Other:: adult children Housing: House Are you a primary caretaker resort to a significant other at home: No Do you presently have visiting nurse or other home services: No Alcohol intake: never Patient Tobacco Use Status: Former Tobacco user Tobacco use type: Cigarette Years Smoked: quit smoking 1989 e-Cigarette/Vaping Use: Never Used Second Hand Smoke Exposure: No service: No Current occupational status: disabled Cognitive needs: Yes (cane) Hearing needs: No Vision needs: Yes (glasses) Female Reproductive History Menstrual Age of Menarche: 14 Review of Systems Const Denies fatigue, Denies fever(s), Denies night sweats, Denies poor appetite and Denies weight loss ENT Reports Normal hearing present, Denies dental pain, Denies dysphagia, Denies hearing loss, Denies mouth pain, Denies odynophagia, Denies throat swelling, Denies tongue swelling and Reports other (Dentition adequate) Card Reports no additional complaints Resp Reports no additional complaints GI Details: Reports abdominal pain, Denies melena, Denies bloating, Denies hematochezia, Reports constipation, Denies GI cramping, Denies dysphagia, Denies excessive flatus, Denies early satiety, Reports heartburn, Denies diarrhea, Denies nausea, Denies odynophagia, Denies vomiting and Denies hematemesis Skin/Breast Denies pruritus, Denies lesions, Denies rash and Denies jaundice Neuro Reports Normal hearing present and Denies Abnormal speech present Endo Denies fatigue Aller/Immun Denies throat swelling and Denies tongue swelling Physical Exam Vital Signs: Last Vital Signs Pulse 94 02/21/24 14:59 BP 151/104 H 02/21/24 14:59 BMI result Body Mass Index 28.7 Const General: cooperative, no acute distress, well developed and well groomed Nutritional Appearance: average body habitus and well nourished Orientation/consciousness: oriented to person, oriented to place and oriented to time Limitations: No language barrier HEENT Head: Yes normocephalic and Yes atraumatic Eyes General: appearance normal, both eyes and all related structures Pupils: Equal, round and reactive pupils present Neck Neck: Yes normal visual inspection and Yes no lymphadenopathy Thyroid: Thyroid normal Resp Effort & Inspection: normal respiratory effort and able to speak in complete sentences Auscultation: clear to auscultation bilaterally Cardio Rate: regular rate Rhythm: regular rhythm Heart sounds: Normal, physiologic split S2 sound present Peripheral pulses: radial pulses present and posterior tibial pulses present GI Inspection: No distended and No Abdominal panniculus present Palpation (GI): Soft to palpation, nontender, no guarding, not rigid and No hepatosplenomegaly present Percussion: Yes normal to percussion Auscultation: normal bowel sounds Rectal Exam - Female: deferred Skin General skin exam: no rashes or lesions noted, turgor normal, skin not dry, no jaundice, No spider nevi and no striae Rashes: no rashes Nails: normal Neuro General: oriented to person, oriented to place and oriented to time Cranial nerves: Yes Equal, round and reactive pupils present and Yes Normal hearing present Speech: No Abnormal speech present Extrem General: Yes normal to inspection, No clubbing, No cyanosis and No edema Psych Appearance: grossly normal and well kempt Mental Status: mental status grossly normal Speech and movement: Normal speech and movement present Affect: normal affect Attitude: cooperative Thought process: Normal thought process present and not confabulating Thought content: Normal thought content present Insight: Limited insight present (Psych) Judgement: Limited judgement present (Psych) Results Reviewed Results Reviewed: HIDA scan 02/18/24 FINDINGS: There is good concentration of activity in the liver by 5 minutes post injection. Biliary activity is visualized by 15 minutes. The gallbladder is well visualized by 30 minutes. Small bowel is well visualized by 35 minutes. At 60 minutes post radiopharmaceutical injection, a 30-minute infusion of 1.4 micrograms Sincalide was then begun and an additional 40 minutes of images were obtained. There is good emptying of the gallbladder. By the end of the study there is good clearance of activity from the liver and visualization of diffuse small bowel activity. The calculated gallbladder ejection fraction is 82% (normal gallbladder ejection fraction is greater than 35%). NM/NM hepatobiliary w pharm IMPRESSION: Visualization of the gallbladder is evidence of a patent cystic duct and strong evidence against the diagnosis of acute cholecystitis. The common bile duct is patent. Gallbladder emptying and ejection fraction are normal. Liver function appears normal. Assessment & Plan Assessment & Plan (1) Irritable bowel syndrome: Code(s): K58.9 - Irritable bowel syndrome, unspecified Category: Medical (2) Constipation: Code(s): K59.00 - Constipation, unspecified Category: Medical (3) Legally blind: Code(s): H54.8 - Legal blindness, as defined in [place] Category: Medical (4) GERD (gastroesophageal reflux disease): Code(s): K21.9 - Gastro-esophageal reflux disease without esophagitis Category: Medical Qualifiers: Esophagitis presence: without esophagitis Qualified Code(s): K21.9 - Gastro-esophageal reflux disease without esophagitis (5) RUQ abdominal pain: Code(s): R10.11 - Right upper quadrant pain Category: Medical Plan Her stool culture came back positive for yessinia entero colitis, Dr. Alexandra sent Bactrim The rt sided burning continues. THe HIDA was negative. She did find relief with bentyl, but stopped it r/t dry mouth - but the dry mouth continued and she would rather restart the med. She has an appt 03/25 s/p EGD to keep with me EGD 03/11/2024 Biopsy Medications: Refilled sennosides (senna) 34.4 mg (4 x 8.6 mg) PO BEDTIME 120 caps 6RF K59.00 - Constipation, unspecified limtrd-wkxiqpuc-vnyrsud 36,000-114,000- 180,000 unit (Creon) 1 cap PO QID 120 caps 6RF K58.9 - Irritable bowel syndrome, unspecified omeprazole 40 mg (2 x 20 mg) PO BID 180 caps 2RF K21.9 - Gastro-esophageal reflux disease without esophagitis imipramine HCl 25 mg PO BEDTIME 30 tabs 6RF K58.9 - Irritable bowel syndrome, unspecified dicyclomine 40 mg (2 x 20 mg) PO QID PRN 240 tabs 3RF for abdominal pain R19.7 - Diarrhea, unspecified, R10.9 - Unspecified abdominal pain Discontinued metoclopramide HCl Discontinued Reason: Doctor's Order 5 mg PO QID 120 tabs 6RF R11.2 - Nausea with vomiting, unspecified Resumed dicyclomine 40 mg (2 x 20 mg) PO QID PRN 240 tabs 3RF for abdominal pain R10.9 - Unspecified abdominal pain, R19.7 - Diarrhea, unspecified dicyclomine 40 mg (2 x 20 mg) PO QID PRN 240 tabs 3RF for abdominal pain R10.9 - Unspecified abdominal pain, R19.7 - Diarrhea, unspecified dicyclomine 40 mg (2 x 20 mg) PO QID PRN 240 tabs 3RF for abdominal pain R10.9 - Unspecified abdominal pain, R19.7 - Diarrhea, unspecified Coding Level of Care Code Est Pt Level 3 (66536) Diagnoses Irritable bowel syndrome K58.9 Constipation K59.00 Legally blind H54.8 Gastroesophageal reflux disease without esophagitis K21.9 Esophagitis presence: without esophagitis RUQ abdominal pain R10.11
[2024-02-21 14:59] VITALS: BP 151/104; PULSE 94; BMI 28.7
== END ==
LOC: HO.HGI 14:52
PROVIDERS: PCP Internal Medicine; Visit Provider Nurse Practitioner
DX: K58.9 Irritable bowel syndrome, unspecified (principal); K59.00 Constipation, unspecified; H54.8 Legal blindness, as defined in USA; K21.9 Gastro-esophageal reflux disease without esophagitis; R10.11 Right upper quadrant pain
CPT/HCPCS: 99213

== ENCOUNTER 2024-03-07 15:43 | Outpatient (REF) | payer OTHER, SELFPAY ==
--- NOTE | ~2024-03-07 | MM_ITS ---
EXAMINATION: MM SCREENING DIGITAL BREAST TOMOSYNTHESIS, BILATERAL CLINICAL INFORMATION: Screening. Asymptomatic. COMPARISON: Mammography: Comparison is made with available priors TECHNIQUE: Digital breast mammography with tomosynthesis is performed in both the craniocaudal and mediolateral oblique views along with computer-aided detection (CAD). FINDINGS: There are scattered areas of fibroglandular density (ACR BI-RADS breast composition Category b). Bilateral reduction mammoplasty. There are no significant masses, abnormal calcifications, or other abnormalities. MM/MM tomosynthesis screening BI IMPRESSION: No mammographic evidence of malignancy. ASSESSMENT: BI-RADS BI-RADS 2 - Benign Findings RECOMMENDATION: Routine annual mammography screening. 1 year F/U This examination should not preclude the clinical evaluation of a suspicious palpable abnormality. This patient's information was entered into a reminder system with a target due date for their next mammogram. Electronically signed by: Marla Herring DO 03/18/2024 10:57 AM BALDO
== END 2024-03-07 15:44 | disposition home or self-care (01) ==
LOC: HO.MAMMO 15:43
PROVIDERS: PCP Internal Medicine; Visit Provider Internal Medicine
DX: Z12.31 Encounter for screening mammogram for malignant neoplasm of breast (principal)
CPT/HCPCS: 77063; 77067

== ENCOUNTER → 2024-03-07 16:00 | Outpatient (BNV) | payer OTHER, SELFPAY | PROVIDERS: PCP Internal Medicine; Visit Provider Internal Medicine | DX: Z12.31 Encounter for screening mammogram for malignant neoplasm of breast (principal) | CPT/HCPCS: 77063; 77067 ==

== ENCOUNTER 2024-03-11 06:31 | Day surgery (SDC) | payer OTHER, SELFPAY ==
[2024-03-07 08:49] VITALS: BMI 29.2
[2024-03-07 09:46] VITALS: BMI 28.5
--- NOTE | 2024-03-07 14:35 | HO.ANESPROP2 ---
HPI - Anesthesia Eval Consult details Narrative: 58yo F for Upper Endoscopy Anesthesia Pre-Procedure Meds Is the patient on any of the following meds?: GLP1/DPP4 PMFSH Active Problems Active Problems: All Active Problems RUQ abdominal pain (Acute) Cataract (Acute) Stabbing headache (Acute) Abnormal electroencephalogram (EEG) (Acute) Nocturnal hypoxemia (Acute) Tongue lesion (Acute) Cognitive dysfunction (Acute) Hemorrhoids (Acute) Irritable bowel syndrome (Acute) Legally blind (Acute) Generalized anxiety disorder (Acute) Fibromyalgia (Acute) Urge incontinence (Acute) PTSD (post-traumatic stress disorder) (Acute) Obesity (BMI 30-39.9) (Acute) Constipation (Acute) HTN (hypertension) (Acute) Hypercholesterolemia (Acute) GERD (gastroesophageal reflux disease) (Acute) Intestinal malabsorption following gastrectomy (Acute) Past Medical History Medical History (Updated 03/13/24 @ 16:38 by CARLIN Robison) Vision changes Overweight (BMI 25.0-29.9) Gallbladder contraction Thrush, oral Pre-op evaluation Fatigue Family history of dementia Dizziness Chest pain Palpitations Forgetfulness SOB (shortness of breath) on exertion Rectal pain Right renal stone COVID-19 Nausea and vomiting Diverticulitis Onychomycosis Annual physical exam 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 Rectal spasm Abdominal cramping Diarrhea Esophageal dysmotility Overweight Abscess of finger of left hand Constipation History of colon polyps (~2016) Incarcerated hiatal hernia Achalasia Family history of polyps in the colon Dysphagia Nausea Snoring Hypersomnolence Intestinal malabsorption following gastrectomy Shoulder pain, right Neck pain Polyarthralgia Plantar fasciitis of left foot Anemia Impaired glucose tolerance Cervical radiculopathy Hypercholesterolemia Obesity (BMI 30-39.9) Insomnia Vitamin D deficiency PTSD (post-traumatic stress disorder) Polymyalgia HTN (hypertension) GERD (gastroesophageal reflux disease) Family History Family History Father Diabetes Mother High blood pressure High cholesterol Dementia Daughter Healthy female Son No problems noted. Son High blood pressure High cholesterol Sister Cervical cancer Maternal Grandmother Cervical cancer Other Mental health disorder Family history of problems with anesthesia: No Surgical History Surgical History Hx of cataract extraction History of repair of hiatal hernia History of History of sleeve gastrectomy (~2016) History of laparoscopic adjustable gastric banding (~2010) History of bilateral breast reduction surgery (~2011) History of esophagogastroduodenoscopy (EGD) (~2020) Hx of abdominoplasty S/P laparoscopic sleeve gastrectomy (~2016) History of excision of mass (~2016) History of colonoscopy (~2015) Status post panniculectomy (~2013) History of carpal tunnel release (~2001) History of neck surgery History of tubal ligation (~2000) History of Problems with Anesthesia: No Social History Social History Household Members: Other Household Members Other:: adult children Housing: House Are you a primary hospice care transitions coordinator to a significant other at home: No Do you presently have visiting nurse or other home services: No Alcohol intake: never Patient Tobacco Use Status: Former Tobacco user Tobacco use type: Cigarette Years Smoked: quit smoking 1989 e-Cigarette/Vaping Use: Never Used Second Hand Smoke Exposure: No service: No Current occupational status: disabled Cognitive needs: Yes (cane) Hearing needs: No Vision needs: Yes (glasses) Meds Allergies Allergy/AdvReac Type Severity Reaction Status Date / Time No Known Allergies Allergy Verified 03/13/24 15:33 [No Known Allergies*] Home Medications ?Medication ?Instructions ?Recorded ?Confirmed ?Last Taken ?Type bupropion HCl 150 mg 24 hr tablet, 300 mg PO QAM 03/05/20 03/13/24 03/11/24 05:45 History extended release clonazepam 0.5 mg tablet 0.5 mg PO DAILY PRN Anxiety 06/08/20 03/13/24 03/11/24 05:45 History jacrjfhufrkd-cxcryjbg-qofeok tablet 1 tab PO DAILY 06/08/20 03/13/24 03/09/21 History acetaminophen 500 mg tablet 1,000 mg PO Q6H PRN Pain, Mild 12/23/21 03/13/24 Unknown History (Tylenol Extra Strength) lactobacillus combination no.9 4 4,000 mmu cells PO DAILY 01/25/23 03/13/24 Unknown History billion cell capsule (Adult 50 Plus Probiotic) fluoxetine 40 mg capsule See Rx Instructions PO QAM 01/29/24 03/13/24 03/11/24 05:45 History semaglutide (weight loss) 2.4 mg subcut 02/21/24 03/13/24 02/26/24 History mg/0.75 mL subcutaneous pen injector (Wegovy) ferrous sulfate 325 mg (65 mg 325 mg PO DAILY 03/07/24 03/13/24 Unknown History iron) tablet fluoxetine 20 mg capsule 20 mg PO QAM 03/13/24 03/13/24 Unknown History Exam Height,Weight and Vital Signs: Height 5 ft 2 in Weight 70.76 kg Pertinent Lab Results Pertinent Lab Results: Laboratory Tests 09/06/23 08:17 WBC 6.1 Hgb 12.4 Hct 37.1 Plt Count 189 D Sodium 141 Potassium 3.4 Chloride 107 Carbon Dioxide 21 L BUN 13 Creatinine 1.19 Narrative Narrative: EKG 08/2023 Vent. Rate : 090 BPM Atrial Rate : 090 BPM P-R Int : 138 ms QRS Dur : 082 ms QT Int : 322 ms P-R-T Axes : 026 -14 037 degrees QTc Int : 393 ms Normal sinus rhythm Minimal voltage criteria for LVH, may be normal variant ( R in aVL ) Nonspecific T wave abnormality Abnormal ECG When compared with ECG of 06-APR-2023 15:22, Nonspecific T wave abnormality, worse in Inferior leads Nonspecific T wave abnormality, worse in Lateral leads Assessment and Plan Assessment Anesthesia Assessment: Chart Reviewed Final Anesthetic Review Family History of Problems with Anesthesia: No History of Problems with Anesthesia: No
[2024-03-11 06:50] VITALS: BMI 28.2
[2024-03-11 07:04] VITALS: BP 166/106; PULSE 101; RESP 15; TEMP 36.2; O2SAT 96
[2024-03-11] MEDS: Lactated Ringers 1,000 ML 100 ML IVCONT (07:06)
--- NOTE | 2024-03-11 07:27 | P.CONAN_ITS ---
[facility] Active Problems Active Problems: All Active Problems RUQ abdominal pain (Acute) Cataract (Acute) Stabbing headache (Acute) Abnormal electroencephalogram (EEG) (Acute) Nocturnal hypoxemia (Acute) Tongue lesion (Acute) Cognitive dysfunction (Acute) Hemorrhoids (Acute) Irritable bowel syndrome (Acute) Legally blind (Acute) Generalized anxiety disorder (Acute) Fibromyalgia (Acute) Urge incontinence (Acute) PTSD (post-traumatic stress disorder) (Acute) Obesity (BMI 30-39.9) (Acute) Constipation (Acute) HTN (hypertension) (Acute) Hypercholesterolemia (Acute) GERD (gastroesophageal reflux disease) (Acute) Intestinal malabsorption following gastrectomy (Acute) Past Medical History Medical History Vision changes Overweight (BMI 25.0-29.9) Gallbladder contraction Thrush, oral Pre-op evaluation Fatigue Family history of dementia Dizziness Chest pain Palpitations Forgetfulness SOB (shortness of breath) on exertion Rectal pain Right renal stone COVID-19 Nausea and vomiting Diverticulitis Onychomycosis Annual physical exam 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 Rectal spasm Abdominal cramping Diarrhea Esophageal dysmotility Overweight Abscess of finger of left hand Constipation History of colon polyps (~2015) Incarcerated hiatal hernia Achalasia Family history of polyps in the colon Dysphagia Nausea Snoring Hypersomnolence Intestinal malabsorption following gastrectomy Shoulder pain, right Neck pain Polyarthralgia Plantar fasciitis of left foot Anemia Impaired glucose tolerance Cervical radiculopathy Hypercholesterolemia Obesity (BMI 30-39.9) Insomnia Vitamin D deficiency PTSD (post-traumatic stress disorder) Polymyalgia HTN (hypertension) GERD (gastroesophageal reflux disease) Functional capacity: independent ambulation Patient : No Family History Family History Father Diabetes Mother High blood pressure High cholesterol Dementia Daughter Healthy female Son No problems noted. Son High blood pressure High cholesterol Sister Cervical cancer Maternal Grandmother Cervical cancer Other Mental health disorder Family history of problems with anesthesia: No Surgical History Surgical History Hx of cataract extraction History of repair of hiatal hernia History of History of sleeve gastrectomy (~2016) History of laparoscopic adjustable gastric banding (~2010) History of bilateral breast reduction surgery (~2011) History of esophagogastroduodenoscopy (EGD) (~2020) Hx of abdominoplasty S/P laparoscopic sleeve gastrectomy (~2016) History of excision of mass (~2016) History of colonoscopy (~2015) Status post panniculectomy (~2013) History of carpal tunnel release (~2001) History of neck surgery History of tubal ligation (~2000) History of Problems with Anesthesia: No Social History Social History Household Members: Other Household Members Other:: adult children Housing: House Are you a primary career services assistant to a significant other at home: No Do you presently have visiting nurse or other home services: No Alcohol intake: never Patient Tobacco Use Status: Former Tobacco user Tobacco use type: Cigarette Years Smoked: quit smoking 1990 Smoked in Last 30 Days: No e-Cigarette/Vaping Use: Never Used Second Hand Smoke Exposure: No Use of substances other than those prescribed or required for medical reasons: No Have you been hit, kicked, punched, or otherwise hurt by someone within the past year? If so, by whom?: No Are you DNR?: No Advance Directives: No Advance Directives Information Provided: Yes Advance Directives on File: No Poor oral hygiene: No service: No Current occupational status: disabled Cognitive needs: Yes (cane) Hearing needs: No Vision needs: Yes (glasses) Meds Allergies Allergy/AdvReac Type Severity Reaction Status Date / Time No Known Allergies Allergy Verified 03/11/24 07:04 [No Known Allergies*] Active Medications: Current Medications Lactated Ringer's (Lr) 1,000 mls @ 100 mls/hr IVCONT .Q10H ALLEGRA Last Admin: 03/11/24 07:06 Dose: 100 mls/hr Home Medications ?Medication ?Instructions ?Recorded ?Confirmed ?Last Taken ?Type bupropion HCl 150 mg 24 hr tablet, 300 mg PO QAM 03/05/20 03/07/24 03/11/24 05 :45 History extended release clonazepam 0.5 mg tablet 0.5 mg PO DAILY PRN Anxiety 06/08/20 03/07/24 03/11/24 05:45 History ihtmpqahbgih-rtjmjfmb-hwdtjk tablet 1 tab PO DAILY 06/08/20 03/07/24 03/09/21 History acetaminophen 500 mg tablet 1,000 mg PO Q6H PRN Pain, Mild 12/23/21 03/07/24 Unknown History (Tylenol Extra Strength) lactobacillus combination no.9 4 4,000 mmu cells PO DAILY 01/25/23 03/07/24 Unknown History billion cell capsule (Adult 50 Plus Probiotic) fluoxetine 40 mg capsule See Rx Instructions PO QAM 01/29/24 03/07/24 03/11/24 05:45 History semaglutide (weight loss) 2.4 mg subcut 02/21/24 02/26/24 History mg/0.75 mL subcutaneous pen injector (Wesonjavstacy) ferrous sulfate 325 mg (65 mg 325 mg PO DAILY 03/07/24 03/07/24 Unknown History iron) tablet Exam Height,Weight and Vital Signs: Height 5 ft 2 in Weight 69.853 kg Last Vital Signs Temp 97.2 F 03/11/24 07:04 Pulse 101 H 03/11/24 07:04 Resp 15 03/11/24 07:04 BP 166/106 H 03/11/24 07:04 Pulse Ox 96 03/11/24 07:04 O2 Del Method Room Air 03/11/24 07:04 Airway Mallampati Class: I TM Dist: >3cm Neck ROM: Full Heart: RRR Lungs: CTA Assessment and Plan Assessment Anesthesia Assessment: Anesthesia Plan Discussed and Chart Reviewed Final Anesthetic Review Family History of Problems with Anesthesia: No History of Problems with Anesthesia: No NPO: Yes ASA Class: III Final Preanesthetic Review: Meds/Allgs Chart Reviewed, Consent Obtained/Reviewed and Anes Risks/Benef Reviewed Patient Risk: Intermediate Procedure Risk: Low Anesthetic Plan Anesthetic Plan: MAC: Disposition: Standard PACU
--- NOTE | 2024-03-11 08:02 | MHC.SHP ---
Pre-Procedural Eval Section A - 24 Hr Update-Section A only Date of Service: 03/11/24 Section B - Complete if H&P > 30 days Chief Complaint: Gastro-esophageal reflux disease without esophagit Details of Present Illness: Gallbladder contraction Annual physical exam Overweight (BMI 25.0-29.9) Obesity (BMI 30-39.9) Dysphagia Forgetfulness Anemia Achalasia Snoring Hypersomnolence Thrush, oral Pre-op evaluation Diverticulitis Onychomycosis Plantar fasciitis of left foot Fatigue Dizziness Chest pain Palpitations SOB (shortness of breath) on exertion Rectal pain Right renal stone COVID-19 Rectal pain Nausea and vomiting Overweight Abscess of finger of left hand Family history of polyps in the colon Impaired glucose tolerance Family history of dementia 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 Nausea and vomiting Rectal spasm Abdominal cramping Diarrhea Esophageal dysmotility Constipation History of colon polyps (~2015) Incarcerated hiatal hernia Nausea Intestinal malabsorption following gastrectomy Shoulder pain, right Neck pain Polyarthralgia Cervical radiculopathy Hypercholesterolemia Insomnia Vitamin D deficiency PTSD (post-traumatic stress disorder) Polymyalgia HTN (hypertension) GERD (gastroesophageal reflux disease) Surgical History (Updated 02/21/24 @ 14:55 by CHRISTY Talamantes) History of sleeve gastrectomy (~2016) S/P laparoscopic sleeve gastrectomy (~2016) History of repair of hiatal hernia History of History of laparoscopic adjustable gastric banding (~2010) History of bilateral breast reduction surgery (~2011) History of esophagogastroduodenoscopy (EGD) (~2020) Hx of abdominoplasty History of excision of mass (~2016) History of colonoscopy (~2015) Status post panniculectomy (~2013) History of carpal tunnel release (~2001) History of neck surgery History of tubal ligation (~2000) Allergies: Allergies Allergy/AdvReac Type Severity Reaction Status Date / Time No Known Allergies Allergy Verified 03/11/24 07:04 [No Known Allergies*] Review of Systems Review of Systems Comment: Ten point ROS negative Exam Exam Comment: Gen appear: No acute distress HEENT: no icterus Chest: No overt resp distress Abd: soft, nontender, nondistended Psych: Stable affect, answering questions appropriately Neuro: A/Ox3 noted to move all extremities spontaneously Ext: no peripheral edema Plan Diagnosis/Plan: Unchanged I have reviewed the history and physical and performed a pertinent physical examination on my patient. No changes have occurred unless specified. Time Spent With Patient Time: Total time managing care of this patient today ____ minutes.
[2024-03-11 08:30] VITALS: BP 136/87; PULSE 95; RESP 15; TEMP 36.1; O2SAT 96
--- NOTE | 2024-03-11 08:33 | P.OP_ITS ---
Operative Note Operative Note Date of Service: 03/11/24 Narrative: Procedure: Esophagogastroduodenoscopy Endoscopist: Aubrie Johnson MD Indication: GERD, dysphagia Anesthesia Provider: Dr Dana Mcclelland Anesthesia Type: MAC ?? EGD Procedure:?? The procedure, indications, preparation and potential complications were reviewed with the patient, who indicated understanding and gave written informed consent to proceed. A physical exam was performed. The endoscope was introduced through the mouth, and advanced to the second part of duodenum. The mucosa was carefully examined on slow withdrawal of the endoscope. The patient tolerated the procedure well. There were no immediate complications.? ? EGD Findings:? * Esophagus:? Normal mucosa noted in the entire esophagus. The Z line was at 36 cm. There was a small hiatal hernia with the diaphragmatic pinch at 39 cm. Middle and lower esophagus forceps biopsies were obtained to rule out eosinophilic esophagitis. * Stomach:?Tubular stomach was noted s/p sleeve gastrectomy. The gastric pouch appeared dilated and easily allowed retroflexion. Erythema and erosions were noted in the herniated portion of the stomach. Random cold forceps gastric biopsies were taken to rule out H Pylori infection. * Duodenum:? Normal mucosa was noted in the whole of the examined duodenum. Cold forceps biopsies were taken from duodenal bulb and second portion of the duodenum to rule out celiac sprue. Additional intervention: A soft tip Savary wire was advanced from the biopsy channel into the antrum. The gastroscope was then backed out. Savary Devi bougie was advanced over the guidewire and the esophagus was dilated to 16 mm. On relook, a superficial tear was noted in the upper esophagus at 18 cm confirming successful dilation. ? EGD Impressions:? * EUS stenosis (dilation) * Normal esophagus (biopsy) * Evidence of sleeve gastrectomy with dilated pouch * Gastritis (biopsy) * Normal duodenum (biopsy) ?? Recommendations:?? * Follow biopsy results. Our office will call or send a letter with results within 7-10 days. * Continue PPI therapy. * Avoid NSAIDs * If H pylori +, patient will be prescribed eradication therapy followed by test of cure. * If pt has improvement in swallowing a repeat EGD with dilation can be set up PRN for recurrence of sx. * Consider barium swallow for assessment for hiatal hernia Above has been reviewed with the patient.
[2024-03-11 08:45] VITALS: BP 157/107; PULSE 91; RESP 15; TEMP 36.1; O2SAT 96
--- NOTE | 2024-03-11 11:08 | HO.POSTANES ---
Post Anesthesia Evaluation Post Anesthesia Evaluation Date of Service: 03/11/24 Vital Signs: Vital Signs Temp Pulse Resp BP Pulse Ox O2 Del Method 03/11/24 08:45 97 F 91 15 157/107 H 96 Room Air 03/11/24 08:30 97 F 95 15 136/87 96 Room Air 03/11/24 07:04 97.2 F 101 H 15 166/106 H 96 Room Air Anesthesia: Monitored Mental Status: Awake Pain Control: Satisfactory Nausea/Vomiting: None Hydration: Adequate Anesthesia-Related Issues: No Anes. Related Issues
== END 2024-03-11 09:22 | disposition home or self-care (01) ==
PROVIDERS: PCP Internal Medicine; Visit Provider Internal Medicine
PROC: 0DJ08ZZ Inspection of Upper Intestinal Tract, Via Natural or Artificial Opening Endoscopic (ICD-10-PCS; CPT 43235; principal; 2024-03-11 07:40)
DX: K22.2 Esophageal obstruction (principal); K29.70 Gastritis, unspecified, without bleeding; K21.00 Gastro-esophageal reflux disease with esophagitis, without bleeding; K44.9 Diaphragmatic hernia without obstruction or gangrene; K31.89 Other diseases of stomach and duodenum; K91.2 Postsurgical malabsorption, not elsewhere classified; Z90.3 Acquired absence of stomach [part of]; Z90.49 Acquired absence of other specified parts of digestive tract
CPT/HCPCS: 43248; 43239; 88305; 88313; 88342; C1769; J2003; J2704

== ENCOUNTER → 2024-03-11 06:31 | Outpatient (BNV) | payer OTHER, SELFPAY | PROVIDERS: PCP Internal Medicine; Visit Provider Internal Medicine | DX: K21.9 Gastro-esophageal reflux disease without esophagitis (principal); R13.10 Dysphagia, unspecified; K29.70 Gastritis, unspecified, without bleeding; Z90.3 Acquired absence of stomach [part of] | CPT/HCPCS: 43239; 43248 ==

== ENCOUNTER 2024-03-13 15:26 | Outpatient (AMB) | payer OTHER, SELFPAY ==
[2024-03-13 15:29] VITALS: BP 150/96; PULSE 94; O2SAT 99; BMI 28.7
--- NOTE | 2024-03-13 15:29 | A.OFFVIS_ITS ---
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 Accompanied by: Self / Same As Patient Allergies No Known Allergies [No Known Allergies*] Allergy (Verified 03/13/24 15:33) Medication List - Last Reconciled 03/13/24 by CARLIN Robison acetaminophen (Tylenol Extra Strength) 1,000 mg PO Q6H PRN ascorbic acid (vitamin C) (Vitamin C) 500 mg PO DAILY bupropion HCl XL 300 mg PO QAM cholecalciferol (vitamin D3) 125 mcg PO DAILY clonazepam 0.5 mg PO DAILY PRN dicyclomine 40 mg (2 x 20 mg) PO QID PRN ferrous sulfate 325 mg PO DAILY fluoxetine orally every morning; fluoxetine 20 mg PO QAM folic acid 1 mg PO DAILY imipramine HCl 25 mg PO BEDTIME lactobacillus combination no.9 (Adult 50 Plus Probiotic) 4,000 mmu cells PO DAILY sivmap-dryjzfdk-xwmtyqt 36,000-114,000- 180,000 unit (Creon) 1 cap PO QID lisinopril 20 mg PO DAILY meloxicam 7.5 mg PO DAILY metoprolol succinate ER 25 mg PO DAILY 30 days twoilbfexrbw-bvyryhqu-agcjfi 1 tab PO DAILY omeprazole 40 mg (2 x 20 mg) PO BID prazosin 2 mg (2 x 1 mg) PO BEDTIME 30 days semaglutide (weight loss) (Wegovy) mg subcut sennosides (senna) 34.4 mg (4 x 8.6 mg) PO BEDTIME simvastatin 10 mg PO BEDTIME ziprasidone HCl 20 mg PO BEDTIME 30 days HPI Comments Details: 58-yr-old female presents for f/u visit of cognitive difficulties and headache. Pt denies any significant interval medical changes. She can still be forgetful at times. She may forget the name of something. She has not had the memory test yet. She is not always sleeping well, even with her sleep medications. Wonders if her sleep issues stem from the loss of her sister 20+ yrs ago who in her sleep and then more recently another family member in their sleep. Has never done CBTi specifically. She has a therapist for many yrs. She tried zolpidem in the past, did not tolertae it. Pt reports her headaches are occurring less often, but still can come out of the blue and be severe/intense. Headache is right or left sided or more rarely occipital pounding/sharp lasts for a minute. In a day, she can have up to 4 headache attacks per day (can be one after the other or repeat every few hours)- does not have interictal headache.. Her neck can still be tight/sore, but denies radiating pain. States she has done PT many times nad it has not helped. She is using Tylenol prn. She had been on Meloxicam, but was advised to stop d/t risk for GI issues. The Meloxicam was not affacting headache. 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 Rectal spasm Abdominal cramping Diarrhea Esophageal dysmotility Overweight Abscess of finger of left hand Constipation History of colon polyps (~2015) Incarcerated hiatal hernia Achalasia Family history of polyps in the colon Dysphagia Nausea Snoring Hypersomnolence Intestinal malabsorption following gastrectomy Shoulder pain, right Neck pain Polyarthralgia Plantar fasciitis of left foot Anemia Impaired glucose tolerance Cervical radiculopathy Hypercholesterolemia Obesity (BMI 30-39.9) Insomnia Vitamin D deficiency PTSD (post-traumatic stress disorder) Polymyalgia HTN (hypertension) GERD (gastroesophageal reflux disease) Surgical History Hx of cataract extraction History of repair of hiatal hernia History of History of sleeve gastrectomy (~2016) History of laparoscopic adjustable gastric banding (~2010) History of bilateral breast reduction surgery (~2011) History of esophagogastroduodenoscopy (EGD) (~2020) Hx of abdominoplasty S/P laparoscopic sleeve gastrectomy (~2016) History of excision of mass (~2016) History of colonoscopy (~2015) Status post panniculectomy (~2013) History of carpal tunnel release (~2001) History of neck surgery History of tubal ligation (~2000) Family History Father Diabetes Mother High blood pressure High cholesterol Dementia Daughter Healthy female Son No problems noted. Son High blood pressure High cholesterol Sister Cervical cancer Maternal Grandmother Cervical cancer Other Mental health disorder Social History Household Members: Other Household Members Other:: adult children Housing: House Are you a primary healthcare sales representative to a significant other at home: No Do you presently have visiting nurse or other home services: No Alcohol intake: never Patient Tobacco Use Status: Former Tobacco user Tobacco use type: Cigarette Years Smoked: quit smoking 1989 e-Cigarette/Vaping Use: Never Used Second Hand Smoke Exposure: No service: No Current occupational status: disabled Cognitive needs: Yes (cane) Hearing needs: No Vision needs: Yes (glasses) Female Reproductive History Menstrual Age of Menarche: 14 Physical Exam Vital Signs: Last Vital Signs Pulse 94 03/13/24 15:29 BP 150/96 H 03/13/24 15:29 Pulse Ox 99 03/13/24 15:29 Oxygen Delivery Method Room Air 03/13/24 15:29 BMI result Body Mass Index 28.7 Const General: cooperative and no acute distress Orientation/consciousness: patient oriented x3 Resp Effort & Inspection: normal respiratory effort and able to speak in complete sentences Neuro General: patient oriented x3 Cranial nerves: Yes CN's II-XII intact bilaterally Cognition (Neuro): normal cognition Psych Appearance: grossly normal Mental Status: mental status grossly normal Speech and movement: Normal speech and movement present Affect: normal affect Attitude: cooperative Assessment & Plan Assessment & Plan (1) Cognitive dysfunction: Comment: MMSE 24 Code(s): F09 - Unspecified mental disorder due to known physiological condition Category: Medical (2) Stabbing headache: Code(s): G44.85 - Primary stabbing headache Category: Medical (3) Insomnia: Code(s): G47.00 - Insomnia, unspecified Category: Medical Plan For cognitive s/s: HST- inconclusive. In-lab sleep- no evidence for sleep apnea. AHI < 0.4/hr, O2 flor 85%, sleep pattern was noted to be predominantly N2, light sleep. PLMS 5.5/hr w/PLMS arousal index 0/hr. 03/09/23, EEG- revealed bitemporal proximal slowing, which may indicate complex partial seizure activity. 07/02/23-/07/04/23 72 hr EEG: Day 1: results not available- will again request Day 2: normal Day 2: Occasional intermittent left frontotemporal slowing, per report, of uncertain clinical significance. 07/09/23, brain MRI- Scattered periventricular and deep white matter T2 FLAIR hyperintensities consistent with mild underlying microangiopathy. Comprehensive neuro-psych eval as ordered- pt is on waitlist- will confirm status For sleep: Trial Ramelteon 8mg qhs. Continue Prazosin for PTSD/nightmares. Reviewed general sleep education principles, including simple strategies to optimize sleep hygiene and sleep quality. List of sleep resources shared w/pt, such as the book Say Sugey to Insomnia by Dr Obed Goodson. Previous sleep med tx's- Zolpidem- not tolerated. Imipramine- not fully effective for sleep. For stabbing headaches: Pt is not interested in starting new medication for the stabbing headaches at this time Continue Imipramine. Patient is not a candidate to do a indomethacin trial d/t history of gastric surgery. Pt is not interested in PT or pain management referral at this time. Future considerations: Pain management referral for ON block or trigger point injections. Follow-up in 6 months or sooner as needed. Medications: New ramelteon 8 mg PO BEDTIME 30 days 30 tabs 3RF Coding Level of Care Code Est Pt Level 4 (22812) Diagnoses Cognitive dysfunction F09 Stabbing headache G44.85 Insomnia G47.00
== END 2024-03-13 16:19 | disposition home or self-care (01) ==
PROVIDERS: PCP Internal Medicine; Visit Provider Nurse Practitioner Family
DX: R41.89 Other symptoms and signs involving cognitive functions and awareness (principal); G44.85 Primary stabbing headache; G47.00 Insomnia, unspecified
CPT/HCPCS: 99214

== ENCOUNTER → 2024-03-13 15:26 | Outpatient (BNVA) | payer OTHER, SELFPAY | PROVIDERS: PCP Internal Medicine; Visit Provider Nurse Practitioner Family | DX: G44.85 Primary stabbing headache (principal); F09 Unspecified mental disorder due to known physiological condition; G47.00 Insomnia, unspecified | CPT/HCPCS: 99212 ==

== ENCOUNTER 2024-05-17 08:06 | Outpatient (REF) | payer OTHER, SELFPAY ==
--- OUTSIDE RECORDS SUMMARY | 2024-05-17 08:08 | XMS_ITS | Clinical Summary ---
Author Organization Patient Business [facility] Address [address] [place] [address] Care Team Providers Care Support Team Member Name Role Phone Demi Lr MD Primary Care Provider [phone] Allergies No known active allergies Medications Medication Sig Dispensed Refills Start Date End Date Status acetaminophen 500 mg/15 mL liquid Take by mouth. Activ e levmetamfetamine (VAPOR INHALER NASL) Inhale by mouth. Active METOPROLOL SUCCINATE ORAL Take by mouth. Active multivitamin with iron (pediatric multivitamin-iron) tablet chewable split tablet Take by mouth. Active ergocalciferol, vitamin D2, (VITAMIN D2 ORAL) Take by mouth. Active lipase/protease/amyla se (CREON ORAL) Take by mouth. Activ e L.acid/L.casei/B.bif/ B.derrell/FOS (PROBIOTIC BLEND ORAL) Take by mouth. Active sennosides (SENNA ORAL) Take by mouth. Active buPROPion XL (WELLBUTRIN XL) 150 mg 24 hr tablet Take 2 tablets (300 mg total) by mouth 1 (one) time each day in the morning. 06/04/2020 Active SIMETHICONE-80 ORAL Take by mouth. A ctive clonazePAM (KlonoPIN) 1 mg tablet Take 1 tablet (1 mg total) by mouth. Active dicyclomine (BENTYL) 20 mg tablet Take 1 tablet (20 mg total) by mouth. Active ferrous sulfate 325 mg (65 mg elemental iron) tablet Take 1 tablet (325 mg total) by mouth 1 (one) time each day. 06/04/2020 Active FLUoxetine (PROzac) 20 mg capsule Take 2 capsules (40 mg total) by mouth 1 (one) time each day in the morning. 06/13/2020 Active imipramine (TOFRANIL) 25 mg tablet Take 1 tablet (25 mg total) by mouth. Active lisinopril-hydroCHLOR Othiazide (PRINZIDE,ZESTORETIC) 20-25 mg per tablet Take 1 tablet by mouth 1 (one) time each day. 05/05/2020 Active meloxicam (MOBIC) 7.5 mg tablet Take 1 tablet (7.5 mg total) by mouth. 06/18/2020 Active omeprazole (PriLOSEC) [address] capsule Take 1 capsule (20 mg total) by mouth 2 (two) times a day. 04/21/2020 Active prazosin (MINIPRESS) 1 mg capsule Take 1 capsule (1 mg total) by mouth. Active simvastatin (ZOCOR) 10 mg tablet Take 1 tablet (10 mg total) by mouth at bedtime. Active ziprasidone (GEODON) 20 mg capsule TAKE ONE CAPSULE BY MOUTH AT BEDTIME WITH FOOD (MEAL OR SNACK) 2020 Active tirzepatide, weight loss, (Zepbound) 2.5 mg/0.5 mL solution Inject 2.5 mg under the skin every 7 (seven) days. 2 mL 05/02/2024 Active Active Problems Problem Noted Date Diagnosed Date Hypertension 02/13/2024 High cholesterol 07/17/2019 Overweight (BMI 25.0-29.9) 11/14/2018 Intestinal malabsorption following gastrectomy 0 11/13/2017 Encounters Date Type Department Care Team Description 05/05/2024 Telephone Bariatric Surgery - [address] [address] Tammie Rocha MA 04/29/2024 4:00 PM EST Office Visit Bariatric Surgery - [address] [address] Chapis Ken PA Overweight (BMI 25.0-29.9) (Primary Dx); Bariatric surgery status from Last 3 Months Surgical History Surgery Date Site/Laterality Comments BARIATRIC SURGERY PROCEDURE: CA LAPS GSTRC RSTRICTIV PX LONGITUDINAL GASTRECTOMY OTHER SURGICAL HISTORY PROCEDURE: CA LAPS GASTRIC RESTRICTIVE PX REMOVE DEVICE & PORT BARIATRIC SURGERY PROCEDURE: CA LAPS GSTRC RSTRICTIV PX LONGITUDINAL GASTRECTOMY OTHER SURGICAL HISTORY PROCEDURE: CA GASTRIC RSTCV W/O BYP VERTICAL-BANDED GASTROPLY BREAST REDUCTION PROCEDURE: CA BREAST REDUCTION CARPAL TUNNEL RELEASE PROCEDURE: CA NEUROPLASTY &/TRANSPOS MEDIAN NRV CARPAL TUNNE SECTION PROCEDURE: CA DELIVERY ONLY HERNIA REPAIR 09/14/2021 PROCEDURE: CA REPAIR FIRST ABDOMINAL WALL HERNIA Medical History Medical History Date Comments Morbid obesity (CMS/HCC) DX:Morb id obesity (HCC) Hypertension DX:Hypertension Depression DX:Depression Anxiety DX:Anxiety Insomnia DX:Insomnia Post traumatic stress disorder (PTSD) DX:Post traumatic stress disorder (PTSD) Acid reflux DX:Acid reflux Polymazia DX:Polymazia Family History Medical History Relation Name Comments Diabetes Father Alzheimer's disease Mother Relation Name Status Comments Father Alive Mother Social History Tobacco Use Types Packs/Day Years Used Date Smoking Tobacco: Never Smokeless Tobacco: Never Tobacco Cessation:Counseling Given: Not Answered Alcohol Use Standard Drinks/Week Comments No 0 (1 standard drink = 0.6 oz pur e alcohol) Sex and Gender Information Value Date Recorded Sex Assigned at Not on file Gender Identity Not on file Sexual Orientation Not on file Obstetrics History Last Filed Vital Signs Vital Sign Reading Time Taken Comments Blood Pressure 116/81 04/29/2024 4:05 PM EST Pulse 98 04/29/2024 4:05 PM EST Temperature - - Respiratory Rate - - Oxygen Saturation - - Inhaled Oxygen Concentration - - Weight 67.9 kg (149 lb 9.6 oz) 04/29/2024 4:05 P M EST Height 157.5 cm (5' 2 ) 04/29/2024 4:05 PM EST Body Mass Index 27.36 04/29/2024 4:05 PM EST Plan of Treatment Upcoming Encounters Date Type Department Care Team (Late st Contact Info) Description 07/30/2024 3:45 PM EDT Office Visit Bariatric Surgery - [place] [address] [phone] Chapis Ken PA 271 [facility] 120 [place] [address] Health Maintenance Due Date Last Done Comments Breast Cancer Screening 1965 Hepatitis B Vaccines (1 of 3 - 19+ 3-dose series) 06/30/1983 Cervical Cancer Screening: Pap Smear 1985 Cholesterol Screening (Lipid Panel) 06/20/2020 Colorectal Cancer Screening: Colonoscopy 06/20/2020 Depression Screening 06/20/2020 HIV Screening 06/20/2020 Hepatitis C Screening 06/20/2020 Medicare Annual Wellness Visit 06/20/2020 Social Influencers of Health Screening 06/20/2020 Hypertension/CHF/CAD Annual BMP Blood Test 04/07/2022 COVID-19 Vaccine ( - season) 2023 03/25/2022, 04/09/2021 DTaP,Tdap,and Td Vaccines (2 - Td or Tdap) 08/31/2031 08/30/2021 RSV Immunization Patients 60+ Years Old (1 - 1-dose 75+ series) 06/30/2039 Pneumococcal Vaccine: Pediatrics (0 to 5 Years) and At-Risk Patients (6 to 64 Years) Aged Out 05/29/2020, 10/21/2015 No longer eligibl e based on patient's age to complete this topic Zoster Vaccines Completed 10/10/2020, 05/29/2020 Influenza Vaccine Completed 01/29/2024, , 03/25/2022, Additional history exists HIB Vaccines Aged Out No longer eligi ble based on patient's age to complete this topic HPV Vaccines Aged Out No longer eligi ble based on patient's age to complete this topic Hepatitis A Vaccines Aged Out No long er eligible based on patient's age to complete this topic IPV Vaccines Aged Out No longer eligi ble based on patient's age to complete this topic MMR Vaccines Aged Out No longer eligi ble based on patient's age to complete this topic Meningococcal ACWY Vaccine Aged Out N o longer eligible based on patient's age to complete this topic RSV Immunization Patients Under 20 months Aged Out No longer eligible based on patient's age to complete this topic Varicella Vaccines Aged Out No longer eligible based on patient's age to complete this topic Care Teams Support Team Member Relationship Specialty Start Date End Date Demi Lr MD [address] [place] [address] Kerry [address] [facility] [place] [address] PCP - General Internal Medicine 07/01/20
--- OUTSIDE RECORDS SUMMARY | 2024-05-17 08:08 | XMS_ITS | Encounter Summary ---
Author Organization [facility] Address [address] [place] [address] Care Team Providers Care Cook Helper Pastry Name Role Phone Demi Lr MD Primary Care Provider [phone] Encounter Details Date Type Department Care Team (Late Contact Info) Description 05/05/2024 Telephone Bariatric Surgery - [address] [address] Tammie Rocha MA Social History Tobacco Use Types Packs/Day Years Used Date Smoking Tobacco: Never Smokeless Tobacco: Never Alcohol Use Standard Drinks/Week Comments No 0 (1 standard drink = 0.6 oz pur e alcohol) Sex and Gender Information Value Date Recorded Sex Assigned at Not on file Gender Identity Not on file Sexual Orientation Not on file documented as of this encounter Progress Notes * Tammie Rocha MA - 05/05/2024 3:22 PM EST PA was sent via CM on 05/05/2024 documented in this encounter Plan of Treatment Upcoming Encounters Date Type Department Care Team (Late Contact Info) Description 07/30/2024 3:45 PM EDT Office Visit Bariatric Surgery - [place] [address] [address] Chapis Ken PA [address] [address] documented as of this encounter Visit Diagnoses Not on filedocumented in this encounter Care Teams Cook Helper Pastry Relationship Specialty Start Date End Date Demi Lr MD [address] [place], [place] [address] [place] [address] PCP - General Internal Medicine 07/01/20 documented as of this encounter
[2024-05-17 08:23] LABS: MANUAL DIFF FLAG NO
[2024-05-17 08:43] LABS: Basophils Percent Auto 0.6 % (0-2); Eosinophils Absolute Auto 0.1 X10*3/uL (0.0-0.4); Eosinophils Percent Auto 0.9 % (0-4); Hemoglobin 12.4 g/dl (12.0-16.0); Imm Gran Abs Auto 0.02 X10*3/uL (0.00-0.03); Imm Gran Pct Auto 0.4 % (0.0-0.4); Lymphocytes Absolute Auto 1.7 X10*3/uL (1.2-4.9); Mean Corpuscular HGB Conc 31.8 g/dl (31.0-35.0); Mean Corpuscular Hemoglobin 27.5 pg (27.0-33.0); Mean Corpuscular Volume 86.5 fL (80.0-98.0); Mean Platelet Volume 9.4 fL (9.4-12.3); Monocytes Absolute Auto 0.5 X10*3/uL (0.1-1.2); Monocytes Percent Auto 9.5 % (2-11); Neutrophils Absolute Auto 3.1 x10*3/uL (2.0-8.3); Neutrophils Percent Auto 57.6 % (45-73); Platelet Count 299 X10*3/uL (160-400); Red Blood Count 4.51 X10*6/uL (4.20-5.50); Red Cell Distribution Width 13.2 % (11.0-16.0); White Blood Count 5.4 X10*3/uL (4.8-10.8)
[2024-05-17 09:15] LABS: Alanine Aminotransferase 31 U/L (0-31); Albumin Level 4.3 g/dL (3.5-5.0); Alkaline Phosphatase 77 U/L (39-117); Anion Gap 11 (12-20); Aspartate Amino Transferase 36 U/L (5-31); Bilirubin Total 0.3 mg/dL (0.0-1.0); Blood Urea Nitrogen 15 mg/dL (9-16); Calcium 9.6 mg/dL (8.4-10.2); Carbon Dioxide 27 mmol/L (22-29); Chloride 110 mmol/L (96-108); Cholesterol 175 mg/dL (<200); Estimated Glomerular Filt Rate 57; Glucose Random 91 mg/dL (60-115); HDL Cholesterol 59 mg/dL (>40); LDL Cholesterol Calculated 77 mg/dL (<100); Potassium 3.9 mmol/L (3.3-5.1); Sodium 144 mmol/L (135-145); Total Protein 7.2 g/dL (6.5-8.0); Triglycerides 197 mg/dL (<150)
[2024-05-17 09:35] LABS: Free T4 (Free Thyroxine) 1.11 ng/dL (0.71-1.85); Thyroid Stimulating Hormone 1.33 uIU/mL (0.32-4.0); Vitamin D 25-OH Total 76.8 ng/mL (>30)
[2024-05-17 09:41] LABS: Vitamin B12 489 pg/mL (200-900)
[2024-05-20 11:24] LABS: Vitamin A 54 mcg/dL (38-98)
[2024-05-25 14:59] LABS: Vitamin B1 13 nmol/L (8-30)
== END 2024-05-17 08:07 | disposition home or self-care (01) ==
LOC: HO.LAB 08:06
PROVIDERS: PCP Internal Medicine; Visit Provider Internal Medicine
DX: E78.00 Pure hypercholesterolemia, unspecified (principal)
CPT/HCPCS: 36415; 80053; 80061; 82306; 82607; 82746; 84425; 84439; 84443; 84590; 85025

== ENCOUNTER 2024-05-19 12:26 | Outpatient (REF) | payer OTHER, SELFPAY ==
[2024-05-19 13:26] LABS: Appearance Urine Clear; Color Urine Dark Yellow; Glucose Urine UA Negative (Negative); Leukocyte Esterase Urine Trace (Negative); Nitrite Urine Negative (Negative); PH 5.5 (5.0-9.0); Specific Gravity - Urine >= 1.030 (1.005-1.025); UMIC TRIGGER UACC YES; Urine Blood Negative (Negative); Urine Ketones Trace mg/dL (Negative); Urine Protein Trace mg/dL (Neg-Trace)
[2024-05-19 14:17] LABS: Bacteria Urine None Seen (None Seen); Calcium Oxalate Crystals Urine Present; Hyaline Casts Urine 0-2 /LPF (0-2); RBC Urine 0-2 /HPF (0-2); Squamous Epithelial Cell Urine 0-2 /HPF (0-2); WBC Urine 0-5 /HPF (0-5)
--- OUTSIDE RECORDS SUMMARY | 2024-05-19 17:54 | XMS_ITS | Encounter Summary ---
Author Organization [facility] Address [address] [place] [address] Care Team Providers Care Pile Driver Operator Name Role Phone Demi Lr MD Primary Care Provider Reason for Visit * Reason Comments Follow-up 3 month Encounter Details Date Type Department Care Team ([facility] Contact Info) Description 04/29/2024 4:00 PM EST Office Visit Bariatric Surgery - [place] 175 [facility] 120 [place] [phone] Chapis Ken PA 271 [facility] [address] [place] [address] Overweight (BMI 25.0-29.9) (Primary Dx); Bariatric surgery status Social History Tobacco Use Types Packs/Day Years [...] on file documented as of this encounter Last Filed Vital Signs Vital Sign Reading [...] Mass Index 27.36 04/29/2024 4:05 PM EST documented in this encounter Ordered Prescriptions Prescription Sig Dispensed Refills Start Date End Da te tirzepatide, weight loss, (Zepbound) 2.5 mg/0.5 mL solution Inject 2.5 mg under the skin every 7 (seven) days. 2 mL 05/02/2024 documented in this encounter Progress Notes * DUTCH Eng - 04/29/2024 4:00 PM EST Hannah Snell is a 58 y.o. year old female who presents for follow up regarding obesity. HPI: Ms. Snell currently her medical weight management program Previous hx of sleeve gastrectomy On Wegovy - currently on 2.4 mg dosing Her last visit in the office was on 01/28/2024 Since that time she has lost an additional 12 pounds She is very happy with her weight loss overall No significant side effects Would like to continue with the medication however due to changes with her insurance she now needs to switch to Zepbound She does take a daily multivitamin No other concerns or complaints Body mass index is 27.36 kg/m??. ROS: GENERAL: No malaise, significant unintentional weight loss, fever, chills or night sweats. RESPIRATORY: No cough, wheezing or shortness of breath CARDIOVASCULAR: No chest pain, leg swelling or palpitations. GI: No abdominal discomfort, nausea, vomiting, or change in bowel habits. : No dysuria, frequency or incontinence. SKIN: No lesions, rash or itching. HEMATOLOGY/LYMPHOLOGY No prolonged bleeding, easy bruisability or swollen nodes. MUSCULOSKELETAL: No abnormalities. NEURO: No abnormalities. The remainder of the review of systems is noncontributory PAST MEDICAL HISTORY: Patient Active Problem List Diagnosis Hypertension High cholesterol Intestinal malabsorption following gastrectomy Overweight (BMI 25.0-29.9) PAST SURGICAL HISTORY: Past Surgical History: Procedure Laterality Date BARIATRIC SURGERY PROCEDURE: NE LAPS GSTRC RSTRICTIV PX LONGITUDINAL GASTRECTOMY BARIATRIC SURGERY PROCEDURE: NE LAPS GSTRC RSTRICTIV PX LONGITUDINAL GASTRECTOMY BREAST REDUCTION PROCEDURE: NE BREAST REDUCTION CARPAL TUNNEL RELEASE PROCEDURE: NE NEUROPLASTY &/TRANSPOS MEDIAN NRV CARPAL TUNNE SECTION PROCEDURE: NE DELIVERY ONLY HERNIA REPAIR 09/14/2021 PROCEDURE: NE REPAIR FIRST ABDOMINAL WALL HERNIA OTHER SURGICAL HISTORY PROCEDURE: NE LAPS GASTRIC RESTRICTIVE PX REMOVE DEVICE & PORT OTHER SURGICAL HISTORY PROCEDURE: NE GASTRIC RSTCV W/O BYP VERTICAL-BANDED GASTROPLY SOCIAL HISTORY: Social History Tobacco Use Smoking status: Never Smokeless tobacco: Never Substance Use Topics Alcohol use: No FAMILY HISTORY: Family History Problem Relation Name Age of Onset Diabetes Father Alzheimer's disease Mother Family Status Relation Name Status Father Alive Mother No partnership data on file MEDICATIONS: There are no discontinued medications. ACTIVE MEDICATIONS: No outpatient medications have been marked as taking for the 04/29/24 encounter (Office Visit) with DUTCH Eng. ALLERGIES: No Known Allergies PHYSICAL EXAM: Visit Vitals BP 116/81 Pulse 98 Ht 1.575 m (62 ) Wt 67.9 kg (149 lb 9.6 oz) BMI 27.36 kg/m?? Smoking Status Never BSA 1.69 m?? APPEARANCE: Alert and in no acute distress EYES: Conjunctiva normal and sclera normal and anicteric. LUNG: Chest no retractions. ABDOMEN: Soft, non-tender, without organomegaly or palpable masses. EXTREMITIES: Extremities warm and well perfused without clubbing, cyanosis, or edema. SKIN: Skin color and texture normal. No rashes or lesions. ASSESSMENT: 1. Overweight (BMI 25.0-29.9) 2. Bariatric surgery status PLAN: 1. Overweight - Switch to Zepbound Continue vitamin Follow up in 8 weeks Total time of today's encounter was 15 minutes in reviewing PMHx/PSHx, performing a medical appropriate exam, counseling the patient, and documenting in the EMR. None of which was spent performing separately billable procedures or ancillary services. Medication and lab orders: No orders of the defined types were placed in this encounter. Other orders: None cc: Demi Lr MD documented in this encounter Plan of Treatment Upcoming Encounters Date Type Department Care Team (Late st Contact Info) Description 07/30/2024 3:45 PM EDT Office Visit Bariatric Surgery - [place] 175 [facility] [address] [place] [address] Chapsi Ken PA 271 [facility] [address] [place] [address] documented as of this encounter Visit Diagnoses Diagnosis Overweight (BMI 25.0-29.9)- Primary Overweight Bariatric surgery status documented in this encounter Care Teams Pile Driver Operator Relationship Specialty Start Date End Date Demi Lr MD [address] [place] [address] Kerry [address] [facility] [place] [address] PCP - General Internal Medicine 07/01/20 documented as of this encounter
--- OUTSIDE RECORDS SUMMARY | 2024-05-19 17:54 | XMS_ITS | Encounter Summary ---
Author Organization Address [address] [place] [address] Care Team Providers Care Family Development Extension Specialist Name Role Phone Demi Lr MD Primary Care Provider [phone] Encounter Details Date Type Department Care Team (Late Contact Info) Description 05/05/2024 Telephone Bariatric Surgery - [address] [phone] Tammie Rocha MA Social History [...] PM EDT Office Visit Bariatric Surgery - [place] [address] [phone] Chapis Ken PA [address] [address] documented as of this encounter Visit Diagnoses Not on filedocumented in this encounter Care Teams Family Development Extension Specialist Relationship Specialty Start Date End Date Demi Lr MD [address] [place], [place] [address] [place] [address] PCP - General Internal Medicine 07/01/20 documented as of this encounter
--- OUTSIDE RECORDS SUMMARY | 2024-05-19 17:54 | XMS_ITS | Clinical Summary ---
Author Organization Patient Business [facility] Address [address] [place] [address] Care Team Providers Care It Portfolio Manager Name Role Phone Demi Lr MD Primary Care Provider [phone] Allergies No known active allergies Medications Medication [...] Team Description 05/05/2024 Telephone Bariatric Surgery - [address] [phone] Tammie Rocha MA 04/29/2024 4:00 PM EST Office Visit Bariatric Surgery - [address] [phone] Chapis Ken PA Overweight (BMI 25.0-29.9) (Primary Dx); Bariatric surgery status from Last 3 Months Surgical History Surgery Date Site/Laterality Comments BARIATRIC SURGERY PROCEDURE: [place] LAPS GSTRC RSTRICTIV PX LONGITUDINAL GASTRECTOMY OTHER SURGICAL HISTORY PROCEDURE: AR LAPS GASTRIC RESTRICTIVE PX REMOVE DEVICE & PORT BARIATRIC SURGERY PROCEDURE: AR LAPS GSTRC RSTRICTIV PX LONGITUDINAL GASTRECTOMY OTHER SURGICAL HISTORY PROCEDURE: AR GASTRIC RSTCV W/O BYP VERTICAL-BANDED GASTROPLY BREAST REDUCTION PROCEDURE: AR BREAST REDUCTION CARPAL TUNNEL RELEASE PROCEDURE: AR NEUROPLASTY &/TRANSPOS MEDIAN NRV CARPAL TUNNE SECTION PROCEDURE: AR DELIVERY ONLY HERNIA REPAIR 09/14/2021 PROCEDURE: AR REPAIR FIRST ABDOMINAL WALL HERNIA Medical History [...] PM EDT Office Visit Bariatric Surgery - [place] [address] [phone] Chapis Ken PA 271 [facility] 120 [place] [address] Health Maintenance Due Date Last Done Comments [...] age to complete this topic Care Teams It Portfolio Manager Relationship Specialty Start Date End Date Demi Lr MD [address] [place] [address] Kerry [address] [facility] [place] [address] PCP - General Internal Medicine 07/01/20
--- OUTSIDE RECORDS SUMMARY | 2024-05-19 17:54 | XMS_ITS | Patient Health Record ---
Author Organization [email or web address] Address [address] [facility] [address] [place] [address] Support Name Relationship Address Phone Hannah Snell Guarantor Unknown [phone] Allergies No Known Allergies Reason For Referral No Information Medications Medication SIG (Take, Route, Frequency, Duration) Notes Start Date End Date Status Ziprasidone HCl 20 MG 1 capsule Orally a t bedtime Active Calcium 600 MG 1 tablet with meals Orally Twice a day Active Simvastatin 10 MG 1 tablet in the even ing Orally Once a day Active buPROPion HCl ER (XL) 150 MG 2 tablets in the morning Orally Once a day Active clonazePAM 0.5 MG 1 tablet Orally as needed Active Vitamin D3 125 MCG (5000 UT) as directed Orally Once a day Active Iron 325 (65 Fe) MG 1 tablet Orally Once a day Active Lisinopril-hydroCHLOROthiaz ruth 20-25 MG 1 tablet Orally Once a day Active FLUoxetine HCl 20 MG as directed Orally 2 tablets daily Active Multivitamin - 1 tablet Orally Once a day Active Meloxicam 7.5 MG 1 tablet Orally Once a day Active Prazosin HCl 1 MG as directed Orally 1 capsule at bedtime Active Vitamin C 500 MG 1 tablet Orally Once a day Active Omeprazole 20 MG as directed Orally 1 capsule twice a day Active Social History Tobacco Use: Social History Observation Description Date Details (start date - stop date) Never Smoker NA - NA Tobacco Use/Smoking Question Answer Notes Are you a nonsmoker Alcohol Screen (Audit-C) Question Answer Notes Did you have a drink containing alcohol in the p ast year? No Points 0 Interpretation Negative Problems Problem Type SNOMED Code ICD Code Onset Dates Problem Status W/U Status Risk Notes Problem Mixed hyperlipidemia (036310941) Mixed hyperlipidemia (E78.2) Active confirmed Problem Moderate recurrent major depression (77512727) Major depressive disorder, recurrent, moderate (F33.1) Active confirmed Problem Generalized anxiety disorder (62648942) Generalized anxiety disorder (F41.1) Active confirmed Problem Post-traumatic stress disorder (09690748) Post-traumatic stress disorder, unspecified (F43.10) Active confirmed Problem Insomnia (225378641) Insomnia, unspecified (G47.00) Active confirmed Problem Essential hypertension (81652492) Essential (primary) hypertension (I10) Active confirmed Problem Body mass index 30.00 to 34.99 (360200780792535) Body mass index (BMI) 31.0-31.9, adult (Z68.31) Active confirmed Problem Body mass index 30.00 to 34.99 (235847433238504) Body mass index (BMI) 33.0-33.9, adult (Z68.33) Active confirmed Problem Body mass index 40+ - morbidly obese (445816710) Body mass index (BMI) 50-59.9 , adult (Z68.43) Active confirmed Problem Obese class II (338923857497803) Body mass index [BMI] 35.0-35.9, adult (Z68.35) Active confirmed Plan Of Treatment No Information Insurance Providers Payer Name Payer Address Payer Phone Subscriber Number Group Number Insured Name Patient Relationship to Insured Coverage Start Date Coverage End Date [facility] [address] [address] [place] [address] [phone] [id number] Hannah Snell Self - patient is the insured Medical (General) History Medical History History ICD Code anxiety/depression/PTSD, psychiatrist Dr Gregg Abbott, therapist hypertension hyperlipidemia osteoarthritis acid reflux Surgical History Surgery Date(Month/Year) gastric sleeve, 2017 x2 carpal tunnel, right hand breast reduction abdominoplasty Lap band 2010 and she was 260 pound and she dropped to 130 pounds
== END 2024-05-19 12:27 | disposition home or self-care (01) ==
LOC: HO.LNP 12:26
PROVIDERS: Visit Provider Internal Medicine
DX: R30.0 Dysuria (principal); E78.00 Pure hypercholesterolemia, unspecified
CPT/HCPCS: 81001

== ENCOUNTER 2024-05-23 10:42 | Outpatient (AMB) | payer OTHER, SELFPAY ==
[2024-05-23 10:56] VITALS: BP 122/80; PULSE 88; TEMP 36.2; O2SAT 99; BMI 26.6
--- NOTE | 2024-05-23 10:56 | A.OFFPC_ITS ---
Vital Signs 05/23/24 10:56 Height 5 ft 2 in Weight 145 lb 4 oz BMI 26.6 BP 122/80 Blood Pressure Location Lt brachial Position Sitting Pulse 88 Pulse Source Pulse Oximeter Temp 97.1 F Temp Source Temporal Artery Scan Pulse Oximetry (%) 99 Oxygen Delivery Method Room Air Intake Visit Reasons: GERD, contracted GB Gold Plater Required: No Accompanied by: Self / Same As Patient Allergies No Known Allergies [No Known Allergies*] Allergy (Verified 05/23/24 10:58) Tobacco use date assessed: 05/23/24 Dental Screening Dental Screen Date: 05/23/24 Did you have a dental visit in the last 12 months?: Yes Did you have a dental problem in the last 6 months where you did not have access to dental care?: No Was dental information given to patient?: Patient has dentist HPI GERD, contracted GB HPI Details The patient is a 58-year-old female presenting for a routine follow-up regarding obesity management and associated health concerns. She is currently on ZEPBound for weight management, after previously being on Wegovy, due to a change in insurance. She reports no nausea but mentions a past issue with GERD for which she takes omeprazole. The patient has a history of gallbladder dysfunction; previous hepatobiliary scans showed normal function, averting the need for surgical intervention. Annual blood work indicates normal electrolytes, although sodium levels are at the higher end of the normal range. Triglyceride levels have decreased but remain elevated, necessitating dietary modifications; the patient enjoys meat, which may contribute to elevated levels. The patient is not anemic, and kidney and liver function appear stable. She exhibits a Vitamin B1 deficiency, pending external lab verification. Previous EEG showed slowing without seizures, but significance remains unclear. Additiona l relevant history includes arthritis-related wrist pain effectively managed with Tylenol after discontinuing meloxicam due to gastrointestinal concerns. Vitamin A, B12, D, folic acid, and thyroid functions are within normal limits. The patient receives regular therapeutic counseling weekly and awaits a psychiatry appointment after a change in psychiatrist. She maintains annual influenza vaccination and plans to obtain the COVID-19 vaccine. Bowel movements are reported as normal, with no significant concerns. [facility] Medical History (Updated 05/23/24 @ 11:10 by Demi Lr MD) Vision changes Overweight (BMI 25.0-29.9) Gallbladder contraction Thrush, oral Pre-op evaluation Fatigue Family history of dementia Dizziness Chest pain Palpitations Forgetfulness SOB (shortness of breath) on exertion Rectal pain Right renal stone COVID-19 Nausea and vomiting Diverticulitis Onychomycosis Annual physical exam 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 Rectal spasm Abdominal cramping Diarrhea Esophageal dysmotility Overweight Abscess of finger of left hand Constipation History of colon polyps (~2015) Incarcerated hiatal hernia Achalasia Family history of polyps in the colon Dysphagia Nausea Snoring Hypersomnolence Intestinal malabsorption following gastrectomy Shoulder pain, right Neck pain Polyarthralgia Plantar fasciitis of left foot Anemia Impaired glucose tolerance Cervical radiculopathy Hypercholesterolemia Obesity (BMI 30-39.9) Insomnia Vitamin D deficiency PTSD (post-traumatic stress disorder) Polymyalgia HTN (hypertension) GERD (gastroesophageal reflux disease) Surgical History (Updated 05/23/24 @ 11:01 by Demi Lr MD) History of sleeve gastrectomy (~2016) Hx of cataract extraction History of repair of hiatal hernia History of History of laparoscopic adjustable gastric banding (~2010) History of bilateral breast reduction surgery (~2011) History of esophagogastroduodenoscopy (EGD) (~2020) Hx of abdominoplasty S/P laparoscopic sleeve gastrectomy (~2016) History of excision of mass (~2016) History of colonoscopy (~2015) Status post panniculectomy (~2013) History of carpal tunnel release (~2001) History of neck surgery History of tubal ligation (~2000) Family History Father Diabetes Mother High blood pressure High cholesterol Dementia Daughter Healthy female Son No problems noted. Son High blood pressure High cholesterol Sister Cervical cancer Maternal Grandmother Cervical cancer Other Mental health disorder Social History Household Members: Other Household Members Other:: adult children Housing: House Are you a primary healthcare receptionist to a significant other at home: No Do you presently have visiting nurse or other home services: No Alcohol intake: never Patient Tobacco Use Status: Former Tobacco user Tobacco use type: Cigarette Years Smoked: quit smoking 1989 e-Cigarette/Vaping Use: Never Used Second Hand Smoke Exposure: No service: No Current occupational status: disabled Cognitive needs: Yes (cane) Hearing needs: No Vision needs: Yes (glasses) Female Reproductive History Menstrual Age of Menarche: 14 Questionnaire PHQ-9 Over the last 2 weeks, how often have you been bothered by any of the following problems? 1. Little interest or pleasure in doing things: more than half the days 2. Feeling down, depressed, or hopeless: several days 3. Trouble falling or staying asleep, or sleeping too much: several days 4. Feeling tired or having little energy: several days 5. Poor appetite or overeating: more than half the days 6. Feeling bad about yourself - or that you are a failure or have let yourself or your family down: several days 7. Trouble concentrating on things, such as reading the newspaper or watching television: more than half the days 8. Moving or speaking so slowly that other people could have noticed. Or the opposite - being so fidgety or restless that you have been moving around a lot more than usual: not at all 9. Thoughts that you would be better off or of hurting yourself in some way: not at all Total score: 10 Depression Screening Interpretation: Positive Depression Screening Done: Yes Source: Developed by Drs. Redd Chu, Vicki Patel, Tito Álvarez and colleagues, with an educational marily from [employer]. Thrive Questionnaire Date Thrive assessed: 05/23/24 I am a: Patient What is your living situation today?: I have a steady place to live Within the past 12 months, did the food you bought not last and you didn't have the money to get more?: Never true Within the past 12 months, did you worry whether your food would run out before you got money to buy more?: Never true Do you have trouble paying for medicines?: No Do you have trouble getting transportation to medical appointments?: Yes Do you have trouble paying your heating and electricity bill?: Yes Do you have trouble taking care of your child, family member or friend?: No Do you have trouble with day-to-day activities such as bathing, preparing meals, shopping, managing finances, etc.?: No Are you currently unemployed and looking for a job?: No Are you interested in more education?: No Currently or been in a relationship where the following occur: No concerns reported THRIVE Score: 2 AUDIT C Alcohol Use Questionnaire (AUDIT-C) 1. How often do you have a drink containing alcohol?: Never 3. How often do you have six or more drinks on one occasion?: Never Total Score: 0 ILENE-7 AMB Questionnaire ILENE-7 Date ILENE - 7 assessed: 05/23/24 Feeling nervous, anxious, or on edge: 1 = Several days Not being able to stop or control worryin = Nearly every day Worrying too much about different things: 3 = Nearly every day Trouble relaxin = Nearly every day Being so restless that it is hard to sit still: 1 = Several days Becoming easily annoyed or irritable: 1 = Several days Feeling afraid as if something awful might happen: 2 = More than half the days Total ILENE-7 score (0-4 normal; 5-9 mild; 10-14 moderate; 15-21 severe): 14 Source: Developed by Drs. Redd Chu, Vicki Patel, Tito Álvarez and colleagues, with an educational marily from [employer]. ILENE-7 Assessment Billing ILENE-7 Assessment Tool: ILENE-7 Assessment 82814 Physical exam (Primary Care) Vital Signs: Last Vital Signs Temp 97.1 F 05/23/24 10:56 Pulse 88 05/23/24 10:56 BP 122/80 05/23/24 10:56 Pulse Ox 99 05/23/24 10:56 Oxygen Delivery Method Room Air 05/23/24 10:56 BMI result Body Mass Index 26.6 Tobacco/Smoking Status: Tobacco use Status Tobacco use date assessed 05/23/24 05/23/24 11:00 Patient Tobacco Use Status Former Tobacco user 05/23/24 11:00 Tobacco use type Cigarette 05/23/24 11:00 e-Cigarette/Vaping Use Never Used 05/23/24 11:00 PHQ-9: PHQ-9 Score PHQ-9: Total score 10 05/23/24 11:00 Depression Screening Interpretation: Positive Thrive Assessment: Date of Thrive Assessment Date Thrive assessed 05/23/24 05/23/24 11:00 Currently or been in a relationship where the following occur: No concerns reported Const General: alert; No acute distress Eyes Conjunctivae: conjunctivae normal Resp Auscultation: clear to auscultation bilaterally Cardio Rate: regular rate Rhythm: regular rhythm GI Inspection: Yes normal to inspection Extrem General: Yes normal to inspection and No edema Coding Level of Care Code Est Pt Level 4 (36677) Complex EM visit Add On G2211 Diagnoses Gastroesophageal reflux disease without esophagitis K21.9 Esophagitis presence: without esophagitis Hypercholesterolemia E78.00 Essential hypertension I10 Hypertension type: essential hypertension History of sleeve gastrectomy Z90.3 Generalized anxiety disorder F41.1 PTSD (post-traumatic stress disorder) F43.10 Wrist pain M25.539 Additional Codes ILENE-7 Assessment Billing - ILENE-7 Assessment Tool: ILENE-7 Assessment 39384 ([id number]) Assessment & Plan Assessment & Plan (1) GERD (gastroesophageal reflux disease): Code(s): K21.9 - Gastro-esophageal reflux disease without esophagitis Category: Medical Qualifiers: Esophagitis presence: without esophagitis Qualified Code(s): K21.9 - Gastro-esophageal reflux disease without esophagitis (2) Hypercholesterolemia: Code(s): E78.00 - Pure hypercholesterolemia, unspecified Category: Medical (3) HTN (hypertension): Code(s): I10 - Essential (primary) hypertension Category: Medical Qualifiers: Hypertension type: essential hypertension Qualified Code(s): I10 - Essential (primary) hypertension (4) History of sleeve gastrectomy: Onset Date: ~2016 Comment: (laparoscopic gastric sleeve surgery - Dr. Rojo - 12/2016) Code(s): Z90.3 - Acquired absence of stomach [part of] Category: Surgical (5) Generalized anxiety disorder: Comment: Dr. Mendieta Q month(June 2021) [facility], New 04/2024 Code(s): F41.1 - Generalized anxiety disorder Category: Medical (6) PTSD (post-traumatic stress disorder): Comment: [facility] counselling once a week psychiatrist Q 2 months Code(s): F43.10 - Post-traumatic stress disorder, unspecified Category: Medical (7) Wrist pain: Code(s): M25.539 - Pain in unspecified wrist Category: Medical Plan: will monitor for now Plan - Encourage continued adherence to weight management plan with ZEPBound and monitor progress. - Monitor GERD symptoms; continue omeprazole as prescribed. Avoid NSAIDs to prevent exacerbation of GERD. - Continue current hypertensive management and monitor blood pressure. - Advise on dietary modifications to reduce triglyceride levels, focusing on lowering meat consumption. Schedule follow-up lipid profile. - Educate on the importance of adequate hydration to maintain electrolyte balance and reduce dark urine episodes. - Reassure about EEG findings; no seizure activity observed. Follow-up with neurology as scheduled. - Manage arthralgia with Tylenol and consider further imaging only if symptoms worsen. - Scheduled follow-up appointments with gastroenterology and neurology. - Reinforce current immunization practices, including obtaining the COVID-19 vaccine. - Regular monitoring of Vitamin B1 levels; reinforce current diet and suppl ementation if necessary. Medications: Discontinued meloxicam Discontinued Reason: Doctor's Order 7.5 mg PO DAILY 90 tabs 0RF M54.2 - Cervicalgia
--- OUTSIDE RECORDS SUMMARY | 2024-05-23 11:23 | XMS_ITS | Encounter Summary ---
Author Organization [facility] Address [address] [place] [address] Care Team Providers Care Supervisor Phosphoric Acid Name Role Phone Demi Lr MD Primary Care Provider [phone] Encounter Details Date Type Department Care Team (Late Contact Info) Description 05/05/2024 Telephone Bariatric Surgery - [address] [address] Tammie Rocha MA Social History [...] PM EDT Office Visit Bariatric Surgery - [place] [address] [address] Chapis Ken PA [address] [address] documented as of this encounter Visit Diagnoses Not on filedocumented in this encounter Care Teams Supervisor Phosphoric Acid Relationship Specialty Start Date End Date Demi Lr MD [address] [place], [place] [address] [place] [address] PCP - General Internal Medicine 07/01/20 documented as of this encounter
--- OUTSIDE RECORDS SUMMARY | 2024-05-23 11:23 | XMS_ITS | Clinical Summary ---
Author Organization Patient [facility] Address [address] [place] [address] Care Team Providers Care Pals Specialist Name Role Phone Demi Lr MD Primary Care Provider [phone] Allergies No known active allergies Medications Medication [...] Team Description 05/05/2024 Telephone Bariatric Surgery - [address] [address] Tammie Rocha MA 04/29/2024 4:00 PM EST Office Visit Bariatric Surgery - [address] [address] Chapis Ken PA Overweight (BMI 25.0-29.9) (Primary Dx); Bariatric surgery status from Last 3 Months Surgical History Surgery Date Site/Laterality Comments BARIATRIC SURGERY PROCEDURE: [place] LAPS GSTRC RSTRICTIV PX LONGITUDINAL GASTRECTOMY OTHER SURGICAL HISTORY PROCEDURE: [place] LAPS GASTRIC RESTRICTIVE PX REMOVE DEVICE & PORT BARIATRIC SURGERY PROCEDURE: [place] LAPS GSTRC RSTRICTIV PX LONGITUDINAL GASTRECTOMY OTHER SURGICAL HISTORY PROCEDURE: [place] GASTRIC RSTCV W/O BYP VERTICAL-BANDED GASTROPLY BREAST REDUCTION PROCEDURE: [place] BREAST REDUCTION CARPAL TUNNEL RELEASE PROCEDURE: [place] NEUROPLASTY &/TRANSPOS MEDIAN NRV CARPAL TUNNE SECTION PROCEDURE: [place] DELIVERY ONLY HERNIA REPAIR 09/14/2021 PROCEDURE: [place] REPAIR FIRST ABDOMINAL WALL HERNIA Medical History [...] PM EDT Office Visit Bariatric Surgery - [place] [address] [phone] Chapis Ken PA 271 [facility] [address] [place] [address] Health Maintenance Due Date Last Done Comments [...] age to complete this topic Care Teams Pals Specialist Relationship Specialty Start Date End Date Demi Lr MD [address] [place] [address] Kerry [address] [facility] [place] [address] PCP - General Internal Medicine 07/01/20
--- OUTSIDE RECORDS SUMMARY | 2024-05-23 11:23 | XMS_ITS | Encounter Summary ---
Author Organization [facility] Address [address] [place] [address] Care Team Providers Care Data Conversion Developer Name Role Phone Demi Lr MD Primary Care Provider [phone] Reason for Visit * Reason Comments Follow-up 3 month Encounter Details Date Type Department Care Team ([facility] Contact Info) Description 04/29/2024 4:00 PM EST Office Visit Bariatric Surgery - [place] 175 [facility] 120 [place] [id number] Chapis Ken PA 271 [facility] [place] [address] [place] [address] Overweight (BMI 25.0-29.9) (Primary Dx); Bariatric surgery [...] History: Procedure Laterality Date BARIATRIC SURGERY PROCEDURE: [place] LAPS GSTRC RSTRICTIV PX LONGITUDINAL GASTRECTOMY BARIATRIC SURGERY PROCEDURE: [place] LAPS GSTRC RSTRICTIV PX LONGITUDINAL GASTRECTOMY BREAST REDUCTION PROCEDURE: [place] BREAST REDUCTION CARPAL TUNNEL RELEASE PROCEDURE: [place] NEUROPLASTY &/TRANSPOS MEDIAN NRV CARPAL TUNNE SECTION PROCEDURE: [place] DELIVERY ONLY HERNIA REPAIR 09/14/2021 PROCEDURE: TX REPAIR FIRST ABDOMINAL WALL HERNIA OTHER SURGICAL HISTORY PROCEDURE: [place] LAPS GASTRIC RESTRICTIVE PX REMOVE DEVICE & PORT OTHER SURGICAL HISTORY PROCEDURE: [place] GASTRIC RSTCV W/O BYP VERTICAL-BANDED GASTROPLY SOCIAL [...] in this encounter. Other orders: None cc: eDmi rL MD documented in this encounter Plan of Treatment Upcoming Encounters Date Type Department Care Team (Late st Contact Info) Description 07/30/2024 3:45 PM EDT Office Visit Bariatric Surgery - [place] 175 [facility] [address] [place] [address] Chapis Ken PA 271 [facility] [address] [place] [address] documented as of this encounter Visit Diagnoses Diagnosis Overweight (BMI 25.0-29.9)- Primary Overweight Bariatric surgery status documented in this encounter Care Teams Data Conversion Developer Relationship Specialty Start Date End Date Demi Lr MD [address] [place] [address] Kerry [address] [facility] [place] [address] PCP - General Internal Medicine 07/01/20 documented as of this encounter
== END 2024-05-23 11:17 | disposition home or self-care (01) ==
PROVIDERS: PCP Internal Medicine; Visit Provider Internal Medicine
DX: K21.9 Gastro-esophageal reflux disease without esophagitis (principal); E78.00 Pure hypercholesterolemia, unspecified; I10 Essential (primary) hypertension; Z90.3 Acquired absence of stomach [part of]; F41.1 Generalized anxiety disorder; F43.10 Post-traumatic stress disorder, unspecified; M25.539 Pain in unspecified wrist

== ENCOUNTER → 2024-05-23 10:42 | Outpatient (BNVA) | payer OTHER, SELFPAY | PROVIDERS: PCP Internal Medicine; Visit Provider Internal Medicine | DX: K21.9 Gastro-esophageal reflux disease without esophagitis (principal); E78.00 Pure hypercholesterolemia, unspecified; I10 Essential (primary) hypertension; F41.1 Generalized anxiety disorder; F43.10 Post-traumatic stress disorder, unspecified; Z90.3 Acquired absence of stomach [part of] | CPT/HCPCS: 96127; 99212 ==

== ENCOUNTER 2024-09-18 14:48 | Outpatient (AMB) | payer OTHER, SELFPAY ==
[2024-09-18 14:54] VITALS: BP 140/90; PULSE 85; O2SAT 99; BMI 23.0
--- NOTE | 2024-09-18 14:54 | MHC.OFFVIS ---
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: No Accompanied by: Self / Same As Patient Allergies No Known Allergies [No Known Allergies*] Allergy (Verified 09/18/24 15:03) Medication List - Last Reconciled 09/18/24 by CARLIN Robison acetaminophen (Tylenol Extra Strength) 1,000 mg PO Q6H PRN ascorbic acid (vitamin C) (Vitamin C) 500 mg PO DAILY bupropion HCl XL 300 mg PO QAM cholecalciferol (vitamin D3) 125 mcg PO DAILY clonazepam 0.5 mg PO DAILY PRN dicyclomine 40 mg (2 x 20 mg) PO QID PRN ferrous sulfate 325 mg PO DAILY fluoxetine orally every morning; fluoxetine 20 mg PO QAM folic acid 1 mg PO DAILY imipramine HCl 25 mg PO BEDTIME lactobacillus combination no.9 (Adult 50 Plus Probiotic) 4,000 mmu cells PO DAILY lemborexant (Dayvigo) 5 mg PO BEDTIME 30 days axkkdz-lquaknej-esfqexs 36,000-114,000- 180,000 unit (Creon) 1 cap PO QID lisinopril 20 mg PO DAILY metoprolol succinate ER 25 mg PO DAILY 30 days kwvoxnroiqyb-yfqiapnl-omltic 1 tab PO DAILY omeprazole 40 mg (2 x 20 mg) PO BID prazosin 2 mg (2 x 1 mg) PO BEDTIME 30 days ramelteon 8 mg PO BEDTIME 30 days semaglutide (weight loss) (Wegovy) mg subcut sennosides (senna) 17.2 mg (2 x 8.6 mg) PO BEDTIME 90 days simvastatin 10 mg PO BEDTIME ziprasidone HCl 20 mg PO BEDTIME 30 days HPI Comments Details: 58-yr-old female presents for f/u visit of cognitive difficulties and headache. Pt denies any significant interval medical changes. She states she had to miss her neuro-psych evaluation due to having Covid-19 infection in July. She can still be forgetful at times- may forget the name of something. she is having more difficulty making decisions. Pt states she had been sleeping well when she was taking Ramelteon, but Ramelteon was switched to dayvago due to her insurance formulary. she states she feels the Dayvigo is equally effective to the Ramelteon. She has started hearing things call her name, sees mice on the floor- this also makes her not want to sleep. She states she had hallucinations in the past when her anxiety and depression started > 20 yrs ago. She saw her psychiatrist this am, and she is increasing her prozac to help her anxiety. She notes her anxiety and sleep issues stem from the loss of her sister 20+ yrs ago who in her sleep due to a ruptured brain aneurysm. More recently another family member in their sleep. She also reports h/o guilty feelings after the of her son- which she had not wanted to be with- who almost denied around childbirth. She has had a therapist for many yrs. She tried zolpidem in the past, did not tolerate it. Pt reports her headaches are occurring almost daily again, and are lasting longer. Headache is right or left sided or more rarely occipital pounding/sharp pain. Her neck can still be tight/sore, but denies radiating pain. She has done PT many times- and states it has not helped. She is using Tylenol prn. She stopped Meloxicam d/t gastritis. [facility] Medical History (Updated 09/18/24 @ 15:42 by CARLIN Robison) Anemia Vision changes Overweight (BMI 25.0-29.9) Gallbladder contraction Thrush, oral Pre-op evaluation Fatigue Family history of dementia Dizziness Chest pain Palpitations Forgetfulness SOB (shortness of breath) on exertion Rectal pain Right renal stone COVID-19 Nausea and vomiting Diverticulitis Onychomycosis Annual physical exam 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 Rectal spasm Abdominal cramping Diarrhea Esophageal dysmotility Overweight Abscess of finger of left hand Constipation History of colon polyps (~2016) Incarcerated hiatal hernia Achalasia Family history of polyps in the colon Dysphagia Nausea Snoring Hypersomnolence Intestinal malabsorption following gastrectomy Shoulder pain, right Neck pain Polyarthralgia Plantar fasciitis of left foot Impaired glucose tolerance Cervical radiculopathy Hypercholesterolemia Obesity (BMI 30-39.9) Insomnia Vitamin D deficiency PTSD (post-traumatic stress disorder) Polymyalgia HTN (hypertension) GERD (gastroesophageal reflux disease) Surgical History (Updated 05/23/24 @ 11:01 by Demi Lr MD) History of sleeve gastrectomy (~2016) Hx of cataract extraction History of repair of hiatal hernia History of History of laparoscopic adjustable gastric banding (~2010) History of bilateral breast reduction surgery (~2011) History of esophagogastroduodenoscopy (EGD) (~2020) Hx of abdominoplasty S/P laparoscopic sleeve gastrectomy (~2016) History of excision of mass (~2016) History of colonoscopy (~2015) Status post panniculectomy (~2013) History of carpal tunnel release (~2001) History of neck surgery History of tubal ligation (~2000) Family History Father Diabetes Mother High blood pressure High cholesterol Dementia Daughter Healthy female Son No problems noted. Son High blood pressure High cholesterol Sister Cervical cancer Maternal Grandmother Cervical cancer Other Mental health disorder Social History Household Members: Other Household Members Other:: adult children Housing: House Are you a primary care partner to a significant other at home: No Do you presently have visiting nurse or other home services: No Alcohol intake: never Patient Tobacco Use Status: Former Tobacco user Tobacco use type: Cigarette Years Smoked: quit 1989 e-Cigarette/Vaping Use: Never Used Second Hand Smoke Exposure: No service: No Current occupational status: disabled Cognitive needs: Yes (cane) Hearing needs: No Vision needs: Yes (glasses) Female Reproductive History Menstrual Age of Menarche: 14 Physical Exam Vital Signs: Last Vital Signs Pulse 85 09/18/24 14:54 BP 140/90 H 09/18/24 14:54 Pulse Ox 99 09/18/24 14:54 Oxygen Delivery Method Room Air 09/18/24 14:54 BMI result Body Mass Index 23.0 Const General: cooperative and no acute distress Orientation/consciousness: patient oriented x3 Resp Effort & Inspection: normal respiratory effort and able to speak in complete sentences Neuro General: patient oriented x3 Cranial nerves: Yes CN's II-XII intact bilaterally Cognition (Neuro): normal cognition Psych Appearance: grossly normal Mental Status: mental status grossly normal Speech and movement: Normal speech and movement present Affect: normal affect Attitude: cooperative Assessment & Plan Assessment & Plan (1) Insomnia: Code(s): G47.00 - Insomnia, unspecified Category: Medical (2) Generalized anxiety disorder: Comment: Dr. Mendieta Q month(June 2021) CHD, New 04/2024 Code(s): F41.1 - Generalized anxiety disorder Category: Medical (3) PTSD (post-traumatic stress disorder): Comment: [facility] counselling once a week psychiatrist Q 2 months Code(s): F43.10 - Post-traumatic stress disorder, unspecified Category: Medical (4) Cognitive dysfunction: Comment: MMSE 24 Code(s): F09 - Unspecified mental disorder due to known physiological condition Category: Medical (5) Stabbing headache: Code(s): G44.85 - Primary stabbing headache Category: Medical (6) Hallucinations: Code(s): R44.3 - Hallucinations, unspecified Category: Medical Plan For cognitive s/s: patient's previous workup: HST- inconclusive. In-lab sleep- no evidence for sleep apnea. AHI < 0.4/hr, O2 flor 85%, sleep pattern was noted to be predominantly N2, light sleep. PLMS 5.5/hr w/PLMS arousal index 0/hr. 03/09/23, EEG- revealed bitemporal proximal slowing, which may indicate complex partial seizure activity. 07/02/23-/07/04/23 72 hr EEG: Day 1: results not available- will again request Day 2: normal Day 2: Occasional intermittent left frontotemporal slowing, per report, of uncertain clinical significance. 07/09/23, brain MRI- Scattered periventricular and deep white matter T2 FLAIR hyperintensities consistent with mild underlying microangiopathy. Patient advised to call [facility] [place] to reschedule the Comprehensive neuro-psych eval as ordered. Check fasting labs for underlying common etiologies of cognitive difficulties and hallucinations ? For sleep: continue Dayvigo 5 mg daily at bedtime Continue Prazosin for PTSD/nightmares. Reviewed general sleep education principles, including simple strategies to optimize sleep hygiene and sleep quality. List of sleep resources previously shared w/pt, such as the book Say Sugey to Insomnia by Dr Obed Goodson. Previous sleep med tx's- Zolpidem- not tolerated. Imipramine- not fully effective for sleep. Ramelteon 8 mg-effective. ? For stabbing headaches: patient advised to undergo brain MRA without contrast to assess for secondary underlying etiologies in setting of first-degree family history of ruptured intracranial aneurysm. start riboflavin 400 mg daily in the morning start magnesium 400 mg daily at bedtime Continue Imipramine. Patient is not a candidate to do a indomethacin trial d/t history of gastric surgery. Pt is not interested in PT or pain management referral at this time. Future considerations: Pain management referral for ON block or trigger point injections. ? Will follow-up upon review of above and patient to follow-up in clinic in 6 months or sooner prn. Orders: Orders Comprehensive Met. Panel Today D64.9 - Anemia, unspecified, F41.1 - Generalized anxiety disorder, G44.85 - Primary stabbing headache, R44.3 - Hallucinations, unspecified, Z90.3 - Acquired absence of stomach [part of] Homocysteine Today D64.9 - Anemia, unspecified, F41.1 - Generalized anxiety disorder, G44.85 - Primary stabbing headache, R44.3 - Hallucinations, unspecified, Z90.3 - Acquired absence of stomach [part of] Methylmalonic Acid Today D64.9 - Anemia, unspecified, F41.1 - Generalized anxiety disorder, G44.85 - Primary stabbing headache, R44.3 - Hallucinations, unspecified, Z90.3 - Acquired absence of stomach [part of] IRON PROFILE Today D64.9 - Anemia, unspecified, F41.1 - Generalized anxiety disorder, G44.85 - Primary stabbing headache, R44.3 - Hallucinations, unspecified, Z90.3 - Acquired absence of stomach [part of] Ferritin Today D64.9 - Anemia, unspecified, F41.1 - Generalized anxiety disorder, G44.85 - Primary stabbing headache, R44.3 - Hallucinations, unspecified, Z90.3 - Acquired absence of stomach [part of] Vitamin B6 Today D64.9 - Anemia, unspecified, F41.1 - Generalized anxiety disorder, G44.85 - Primary stabbing headache, R44.3 - Hallucinations, unspecified, Z90.3 - Acquired absence of stomach [part of] Lyme IgG/IgM w/reflex to WB Today D64.9 - Anemia, unspecified, F41.1 - Generalized anxiety disorder, G44.85 - Primary stabbing headache, R44.3 - Hallucinations, unspecified, Z90.3 - Acquired absence of stomach [part of] YANA Reflex Titer and Pattern Today D64.9 - Anemia, unspecified, F41.1 - Generalized anxiety disorder, G44.85 - Primary stabbing headache, R44.3 - Hallucinations, unspecified, Z90.3 - Acquired absence of stomach [part of] Complete Blood Count Auto Diff Today D64.9 - Anemia, unspecified, F41.1 - Generalized anxiety disorder, G44.85 - Primary stabbing headache, R44.3 - Hallucinations, unspecified, Z90.3 - Acquired absence of stomach [part of] Vitamin B12 and Folate Today D64.9 - Anemia, unspecified, F41.1 - Generalized anxiety disorder, G44.85 - Primary stabbing headache, R44.3 - Hallucinations, unspecified, Z90.3 - Acquired absence of stomach [part of] MR angio head wo con Today G44.85 - Primary stabbing headache, R44.3 - Hallucinations, unspecified, Z82.49 - Family history of ischemic heart disease and other diseases of the circulatory system Erythrocyte Sedimentation Rate Today D64.9 - Anemia, unspecified, F41.1 - Generalized anxiety disorder, G44.85 - Primary stabbing headache, R44.3 - Hallucinations, unspecified, Z90.3 - Acquired absence of stomach [part of] C Reactive Protein Today D64.9 - Anemia, unspecified, F41.1 - Generalized anxiety disorder, G44.85 - Primary stabbing headache, R44.3 - Hallucinations, unspecified, Z90.3 - Acquired absence of stomach [part of] Syphilis Screen Today D64.9 - Anemia, unspecified, F41.1 - Generalized anxiety disorder, G44.85 - Primary stabbing headache, R44.3 - Hallucinations, unspecified, Z90.3 - Acquired absence of stomach [part of] TSH reflex Free T4 Today D64.9 - Anemia, unspecified, F41.1 - Generalized anxiety disorder, G44.85 - Primary stabbing headache, R44.3 - Hallucinations, unspecified, Z90.3 - Acquired absence of stomach [part of] Vitamin B1 Today D64.9 - Anemia, unspecified, F41.1 - Generalized anxiety disorder, G44.85 - Primary stabbing headache, R44.3 - Hallucinations, unspecified, Z90.3 - Acquired absence of stomach [part of] Rheumatoid Factor Today D64.9 - Anemia, unspecified, F41.1 - Generalized anxiety disorder, G44.85 - Primary stabbing headache, R44.3 - Hallucinations, unspecified, Z90.3 - Acquired absence of stomach [part of] Medications: New riboflavin (vitamin B2) 400 mg PO DAILY 30 days 30 tabs 6RF magnesium oxide may hold for loose stools 400 mg PO BEDTIME 30 days 30 tabs 6RF Coding Level of Care Code Est Pt Level 4 (53006) Diagnoses Insomnia G47.00 Generalized anxiety disorder F41.1 PTSD (post-traumatic stress disorder) F43.10 Cognitive dysfunction F09 Stabbing headache G44.85 Hallucinations R44.3
--- OUTSIDE RECORDS SUMMARY | 2024-09-18 14:54 | XMS_ITS | Patient Health Record ---
Author Organization [facility] Address [address] [facility] [address] [place] [address] Support Name Relationship Address Phone Hannah Snell Guarantor Unknown [phone] Allergies No Known Allergies Reason For Referral [...] W/U Status Risk Notes Problem Mixed hyperlipidemia (187624993) Mixed hyperlipidemia (E78.2) Active confirmed Problem Moderate recurrent major depression (24464943) Major depressive disorder, recurrent, moderate (F33.1) Active confirmed Problem Generalized anxiety disorder (53358218) Generalized anxiety disorder (F41.1) Active confirmed Problem Post-traumatic stress disorder (79615396) Post-traumatic stress disorder, unspecified (F43.10) Active confirmed Problem Insomnia (719369690) Insomnia, unspecified (G47.00) Active confirmed Problem Essential hypertension (32191153) Essential (primary) hypertension (I10) Active confirmed Problem Body mass index 30.00 to 34.99 (888848909403480) Body mass index (BMI) 31.0-31.9, adult (Z68.31) Active confirmed Problem Body mass index 30.00 to 34.99 (190079324358604) Body mass index (BMI) 33.0-33.9, adult (Z68.33) Active confirmed Problem Body mass index 40+ - morbidly obese (564097519) Body mass index (BMI) 50-59.9 , adult (Z68.43) Active confirmed Problem Obese class II (692785581381767) Body mass index [BMI] 35.0-35.9, adult (Z68.35) Active confirmed Plan Of Treatment No Information Insurance Providers Payer Name Payer Address Payer Phone Subscriber Number Group Number Insured Name Patient Relationship to Insured Coverage Start Date Coverage End Date [facility] [address] [address] [place] [address] [phone] [id number] Hannah Snell Self - patient is the insured Medical (General) History Medical History History ICD Code anxiety/depression/PTSD, psychiatrist Dr Gregg Abbott, therapist hypertension hyperlipidemia osteoarthritis acid reflux Surgical History Surgery Date(Month/Year) gastric sleeve, 2017 x2 carpal tunnel, right hand breast reduction abdominoplasty Lap band 2010 and she was 260 pound and she dropped to 130 pounds
== END 2024-09-18 15:46 | disposition home or self-care (01) ==
LOC: HO.HSMS 14:48
PROVIDERS: PCP Internal Medicine; Visit Provider Nurse Practitioner Family
DX: G47.00 Insomnia, unspecified (principal); F41.1 Generalized anxiety disorder; F43.10 Post-traumatic stress disorder, unspecified; F09 Unspecified mental disorder due to known physiological condition; G44.85 Primary stabbing headache; R44.3 Hallucinations, unspecified
CPT/HCPCS: 99214

== ENCOUNTER → 2024-09-18 14:48 | Outpatient (BNVA) | payer OTHER, SELFPAY | PROVIDERS: PCP Internal Medicine; Visit Provider Nurse Practitioner Family | DX: G47.00 Insomnia, unspecified (principal); F41.1 Generalized anxiety disorder; F43.10 Post-traumatic stress disorder, unspecified; G44.85 Primary stabbing headache; R44.3 Hallucinations, unspecified; D64.9 Anemia, unspecified; Z90.3 Acquired absence of stomach [part of] | CPT/HCPCS: 99212 ==

== ENCOUNTER 2024-10-10 15:47 | Outpatient (AMB) | payer OTHER, SELFPAY ==
--- OUTSIDE RECORDS SUMMARY | 2024-10-10 15:50 | XMS_ITS | Patient Health Record ---
Author Organization [employer] [facility] Address [address] [place] [address] Support Name Relationship Address Phone Hannah Snell Guarantor Unknown [phone] Allergies No Known Allergies Reason For Referral [...] W/U Status Risk Notes Problem Mixed hyperlipidemia (274195481) Mixed hyperlipidemia (E78.2) Active confirmed Problem Moderate recurrent major depression (70512337) Major depressive disorder, recurrent, moderate (F33.1) Active confirmed Problem Generalized anxiety disorder (96170043) Generalized anxiety disorder (F41.1) Active confirmed Problem Post-traumatic stress disorder (24508212) Post-traumatic stress disorder, unspecified (F43.10) Active confirmed Problem Insomnia (051366255) Insomnia, unspecified (G47.00) Active confirmed Problem Essential hypertension (40049126) Essential (primary) hypertension (I10) Active confirmed Problem Body mass index 30.00 to 34.99 (200895281923776) Body mass index (BMI) 31.0-31.9, adult (Z68.31) Active confirmed Problem Body mass index 30.00 to 34.99 (780414746500674) Body mass index (BMI) 33.0-33.9, adult (Z68.33) Active confirmed Problem Body mass index 40+ - morbidly obese (875862482) Body mass index (BMI) 50-59.9 , adult (Z68.43) Active confirmed Problem Obese class II (163724495559411) Body mass index [BMI] 35.0-35.9, adult (Z68.35) Active confirmed Plan Of Treatment No Information Insurance Providers Payer Name Payer Address Payer Phone Subscriber Number Group Number Insured Name Patient Relationship to Insured Coverage Start Date Coverage End Date [facility] [address] [address] [place] [phone] [id number] Hannah Snell Self - patient is the insured Medical (General) History Medical History History ICD Code anxiety/depression/PTSD, psychiatrist Dr Gregg Abbott, therapist hypertension hyperlipidemia osteoarthritis acid reflux Surgical History Surgery Date(Month/Year) gastric sleeve, 2017 x2 carpal tunnel, right hand breast reduction abdominoplasty Lap band 2010 and she was 260 pound and she dropped to 130 pounds
--- NOTE | 2024-10-10 15:57 | A.OFFVIS_ITS ---
Vital Signs 10/10/24 15:58 Height 5 ft 2 in Weight 123 lb BMI 22.5 BP 128/90 H Blood Pressure Location Lt brachial Position Sitting Pulse 88 Pulse Source Pulse Oximeter Pulse Oximetry (%) 100 Oxygen Delivery Method Room Air Intake Visit Reasons: Aphagia post op r/s 08/05/24 Allergies No Known Allergies (No Known Allergies*) Allergy (Verified 10/10/24 16:02) HPI HPI Aphagia post op r/s 08/05/24: Details: Assessment & Plan (1) Irritable bowel syndrome: Code(s): K58.9 - Irritable bowel syndrome, unspecified Category: Medical (2) Constipation: Code(s): K59.00 - Constipation, unspecified Category: Medical (3) Legally blind: Code(s): H54.8 - Legal blindness, as defined in [place] Category: Medical (4) GERD (gastroesophageal reflux disease): Code(s): K21.9 - Gastro-esophageal reflux disease without esophagitis Category: Medical Qualifiers: Esophagitis presence: without esophagitis Qualified Code(s): K21.9 - Gastro-esophageal reflux disease without esophagitis (5) RUQ abdominal pain: Code(s): R10.11 - Right upper quadrant pain Category: Medical Plan Her stool culture came back positive for yessinia entero colitis, Dr. Alexandra sent Bactrim The rt sided burning continues. THe HIDA was negative. She did find relief with bentyl, but stopped it r/t dry mouth - but the dry mouth continued and she would rather restart the med. She has an appt 03/25 s/p EGD to keep with me EGD 03/11/24 EGD Findings:? * Esophagus:? Normal mucosa noted in the entire esophagus. The Z line was at 36 cm. There was a small hiatal hernia with the diaphragmatic pinch at 39 cm. Middle and lower esophagus forceps biopsies were obtained to rule out eosinophilic esophagitis. * Stomach:?Tubular stomach was noted s/p sleeve gastrectomy. The gastric pouch appeared dilated and easily allowed retroflexion. Erythema and erosions were noted in the herniated portion of the stomach. Random cold forceps gastric biopsies were taken to rule out H Pylori infection. * Duodenum:? Normal mucosa was noted in the whole of the examined duodenum. Cold forceps biopsies were taken from duodenal bulb and second portion of the duodenum to rule out celiac sprue. Additional intervention: A soft tip Savary wire was advanced from the biopsy channel into the antrum. The gastroscope was then backed out. Savary Devi bougie was advanced over the guidewire and the esophagus was dilated to 16 mm. On relook, a superficial tear was noted in the upper esophagus at 18 cm confirming successful dilation. ? EGD Impressions:? * EUS stenosis (dilation) * Normal esophagus (biopsy) * Evidence of sleeve gastrectomy with dilated pouch * Gastritis (biopsy) * Normal duodenum (biopsy)?? Recommendations:?? * Follow biopsy results. Our office will call or send a letter with results within 7-10 days. * Continue PPI therapy. * Avoid NSAIDs * If H pylori +, patient will be prescribed eradication therapy followed by test of cure. * If pt has improvement in swallowing a repeat EGD with dilation can be set up PRN for recurrence of sx. * Consider barium swallow for assessment for hiatal hernia Biopsy Received: 03/11/24 Diagnosis A. Duodenum, biopsy: Duodenal mucosa with patchy mildly increased intraepithelial lymphocytes and preserved villous architecture. See comment. B. Stomach, biopsy: Antral-type and oxyntic mucosa with mild chronic inactive inflammation; no Helicobacter organisms seen. C. Esophagus, lower, biopsy: Active esophagitis (few eosinophils and neutrophils). D. Esophagus, middle, biopsy: Active esophagitis (maximum eosinophil count 1 per high powered field). COMMENT: The findings in the duodenum are non-specific. The differential diagnosis is broad and includes infection (e.g. viral or H. pylori), medication/drugs (e.g. NSAIDs), gluten sensitivity/celiac disease, bacterial overgrowth, tropical sprue, immunodeficiency syndromes (e.g. IgA deficiency, CVID), autoimmune enteropathy, Crohns and collagen vascular disease, among others. Please correlate with clinical and other laboratory findings Medications: Refilled sennosides (senna) 34.4 mg (4 x 8.6 mg) PO BEDTIME 120 caps 6RF K59.00 - Constipation, unspecified [id number] 36,000-114,000- 180,000 unit (Creon) 1 cap PO QID 120 caps 6RF K58.9 - Irritable bowel syndrome, unspecified omeprazole 40 mg (2 x 20 mg) PO BID 180 caps 2RF K21.9 - Gastro-esophageal reflux disease without esophagitis imipramine HCl 25 mg PO BEDTIME 30 tabs 6RF K58.9 - Irritable bowel syndrome, unspecified dicyclomine 40 mg (2 x 20 mg) PO QID PRN 240 tabs 3RF for abdominal pain R19.7 - Diarrhea, unspecified, R10.9 - Unspecified abdominal pain Discontinued metoclopramide HCl Discontinued Reason: Doctor's Order 5 mg PO QID 120 tabs 6RF R11.2 - Nausea with vomiting, unspecified Resumed dicyclomine 40 mg (2 x 20 mg) PO QID PRN 240 tabs 3RF for abdominal pain R10.9 - Unspecified abdominal pain, R19.7 - Diarrhea, unspecified dicyclomine 40 mg (2 x 20 mg) PO QID PRN 240 tabs 3RF for abdominal pain R10.9 - Unspecified abdominal pain, R19.7 - Diarrhea, unspecified dicyclomine 40 mg (2 x 20 mg) PO QID PRN 240 tabs 3RF for abdominal pain R10.9 - Unspecified abdominal pain, R19.7 - Diarrhea, unspecified EGD BIOPSY TODAYS VISIT Her swallowing was improved from 02/2024 through about the beginning of June of 2024. Now the problems is returning. WIll get repeat EGD with dilation. She showed active esophagitis, but is adherent to bid omeprazole 40mg. C/f are gastric bypass and use of Zepbound. Her current regimen consists of omeprazole, Creon, senna, imipramine, and dicyclomine. ROV after procedure. 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 Rectal spasm Abdominal cramping Diarrhea Esophageal dysmotility Overweight Abscess of finger of left hand Constipation History of colon polyps (~2015) Incarcerated hiatal hernia Achalasia Family history of polyps in the colon Nausea Snoring Hypersomnolence Intestinal malabsorption following gastrectomy Shoulder pain, right Neck pain Polyarthralgia Plantar fasciitis of left foot Impaired glucose tolerance Cervical radiculopathy Hypercholesterolemia Obesity (BMI 30-39.9) Insomnia Vitamin D deficiency PTSD (post-traumatic stress disorder) Polymyalgia HTN (hypertension) GERD (gastroesophageal reflux disease) Surgical History History of sleeve gastrectomy (~2016) Hx of cataract extraction History of repair of hiatal hernia History of History of laparoscopic adjustable gastric banding (~2010) History of bilateral breast reduction surgery (~2011) History of esophagogastroduodenoscopy (EGD) (~2020) Hx of abdominoplasty S/P laparoscopic sleeve gastrectomy (~2016) History of excision of mass (~2016) History of colonoscopy (~2015) Status post panniculectomy (~2013) History of carpal tunnel release (~2001) History of neck surgery History of tubal ligation (~2000) Family History Father Diabetes Mother High blood pressure High cholesterol Dementia Daughter Healthy female Son No problems noted. Son High blood pressure High cholesterol Sister Cervical cancer Maternal Grandmother Cervical cancer Other Mental health disorder Social History Household Members: Other Household Members Other:: adult children Housing: House Are you a primary healthcare risk control consultant to a significant other at home: No Do you presently have visiting nurse or other home services: No Alcohol intake: never Patient Tobacco Use Status: Former Tobacco user Tobacco use type: Cigarette Years Smoked: quit smoking 1989 e-Cigarette/Vaping Use: Never Used Second Hand Smoke Exposure: No service: No Current occupational status: disabled Cognitive needs: Yes (cane) Hearing needs: No Vision needs: Yes (glasses) Female Reproductive History Menstrual Age of Menarche: 14 Review of Systems Const Denies fatigue, Denies fever(s), Denies night sweats, Denies poor appetite and Reports weight loss ENT Reports Normal hearing present, Denies dental pain, Reports dysphagia, Denies hearing loss, Denies mouth pain, Denies odynophagia, Denies throat swelling, Denies tongue swelling and Reports other (Dentition adequate) Card Reports no additional complaints Resp Reports no additional complaints GI Details: Denies abdominal pain, Denies melena, Denies bloating, Denies hematochezia, Reports constipation, Reports GI cramping, Reports dysphagia, Denies excessive flatus, Denies early satiety, Reports heartburn, Denies diarrhea, Denies nausea, Denies odynophagia, Denies vomiting and Denies hematemesis Skin/Breast Denies pruritus, Denies lesions, Denies rash and Denies jaundice Neuro Reports Normal hearing present and Denies Abnormal speech present Endo Denies fatigue Aller/Immun Denies throat swelling and Denies tongue swelling Physical Exam Vital Signs: Last Vital Signs Pulse 88 10/10/24 15:58 BP 128/90 H 10/10/24 15:58 Pulse Ox 100 10/10/24 15:58 Oxygen Delivery Method Room Air 10/10/24 15:58 BMI result Body Mass Index 22.5 Const General: cooperative, no acute distress, well developed and well groomed Nutritional Appearance: well nourished and overweight Orientation/consciousness: oriented to person, oriented to place and oriented to time Limitations: language barrier HEENT Head: Yes normocephalic and Yes atraumatic Eyes General: appearance normal, both eyes and all related structures Pupils: Equal, round and reactive pupils present Neck Neck: Yes normal visual inspection and Yes no lymphadenopathy Thyroid: Thyroid normal Resp Effort & Inspection: normal respiratory effort and able to speak in complete sentences Auscultation: clear to auscultation bilaterally Cardio Rate: regular rate Rhythm: regular rhythm Heart sounds: Normal, physiologic split S2 sound present Peripheral pulses: radial pulses present and posterior tibial pulses present GI Inspection: No distended and No Abdominal panniculus present Palpation (GI): Soft to palpation, nontender, no guarding, not rigid and No hepatosplenomegaly present Percussion: Yes normal to percussion Auscultation: normal bowel sounds Rectal Exam - Female: deferred Skin General skin exam: no rashes or lesions noted, turgor normal, skin not dry, no jaundice, No spider nevi and no striae Rashes: no rashes Nails: normal Neuro General: oriented to person, oriented to place and oriented to time Cranial nerves: Yes Equal, round and reactive pupils present and Yes Normal hearing present Speech: No Abnormal speech present Extrem General: Yes normal to inspection, No clubbing, No cyanosis and No edema Psych Appearance: grossly normal and well kempt Mental Status: mental status grossly normal Speech and movement: Normal speech and movement present Affect: normal affect Attitude: cooperative Thought process: Normal thought process present and not confabulating Thought content: Normal thought content present Insight: Fair insight present (Psych) and Limited insight present (Psych) Judgement: Fair judgement present (Psych) and Limited judgement present (Psych) Assessment & Plan Assessment & Plan (1) Dysphagia: Code(s): R13.10 - Dysphagia, unspecified Category: Medical (2) GERD (gastroesophageal reflux disease): Code(s): K21.9 - Gastro-esophageal reflux disease without esophagitis Category: Medical Qualifiers: Esophagitis presence: without esophagitis Qualified Code(s): K21.9 - Gastro-esophageal reflux disease without esophagitis (3) Constipation: Code(s): K59.00 - Constipation, unspecified Category: Medical (4) Irritable bowel syndrome: Code(s): K58.9 - Irritable bowel syndrome, unspecified Category: Medical Plan Her swallowing was improved from 02/2024 through about the beginning of June of 2024. Now the problems is returning. WIll get repeat EGD with dilation. She showed active esophagitis, but is adherent to bid omeprazole 40mg. C/f are gastric bypass and use of Zepbound. Her current regimen consists of omeprazole, Creon, senna, imipramine, and dicyclomine. ROV after procedure. Orders: Orders EGD - GI Use Only 10/10/24 R13.10 - Dysphagia, unspecified Medications: Refilled omeprazole 40 mg (2 x 20 mg) PO BID 180 caps 2RF K21.9 - Gastro-esophageal reflux disease without esophagitis dicyclomine 40 mg (2 x 20 mg) PO QID PRN 240 tabs 3RF for abdominal pain R19.7 - Diarrhea, unspecified, R10.9 - Unspecified abdominal pain [id number] 36,000-114,000- 180,000 unit (Creon) 1 cap PO QID 120 caps 6RF K58.9 - Irritable bowel syndrome, unspecified sennosides (senna) 17.2 mg (2 x 8.6 mg) PO BEDTIME 180 tabs 0RF Coding Level of Care Code Est Pt Level 3 (92119) Diagnoses Dysphagia R13.10 Gastroesophageal reflux disease without esophagitis K21.9 Esophagitis presence: without esophagitis Constipation K59.00 Irritable bowel syndrome K58.9
--- NOTE | 2024-10-10 15:57 | MHC.OFFVIS ---
Vital Signs 10/10/24 15:58 Height 5 ft 2 in Weight 123 lb BMI 22.5 BP 128/90 H Blood Pressure Location Lt brachial Position Sitting Pulse 88 Pulse Source Pulse Oximeter Pulse Oximetry (%) 100 Oxygen Delivery Method Room Air Intake Visit Reasons: Aphagia post op r/s 08/05/24 Intake Note: Est pt for mgmt of GERD + IBS. S/P EGD 02/2024. CC; C.O. GERD exacerbation, dysphagia, with foreign body sensation. N+V also reported but not as significant as previously experienced. Pt also reports experiencing LUQ pain. 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 Rectal spasm Abdominal cramping Diarrhea Esophageal dysmotility Overweight Abscess of finger of left hand Constipation History of colon polyps (~2015) Incarcerated hiatal hernia Achalasia Family history of polyps in the colon Dysphagia Nausea Snoring Hypersomnolence Intestinal malabsorption following gastrectomy Shoulder pain, right Neck pain Polyarthralgia Plantar fasciitis of left foot Impaired glucose tolerance Cervical radiculopathy Hypercholesterolemia Obesity (BMI 30-39.9) Insomnia Vitamin D deficiency PTSD (post-traumatic stress disorder) Polymyalgia HTN (hypertension) GERD (gastroesophageal reflux disease) Surgical History History of sleeve gastrectomy (~2016) Hx of cataract extraction History of repair of hiatal hernia History of History of laparoscopic adjustable gastric banding (~2010) History of bilateral breast reduction surgery (~2011) History of esophagogastroduodenoscopy (EGD) (~2020) Hx of abdominoplasty S/P laparoscopic sleeve gastrectomy (~2016) History of excision of mass (~2016) History of colonoscopy (~2015) Status post panniculectomy (~2013) History of carpal tunnel release (~2001) History of neck surgery History of tubal ligation (~2000) Family History Father Diabetes Mother High blood pressure High cholesterol Dementia Daughter Healthy female Son No problems noted. Son High blood pressure High cholesterol Sister Cervical cancer Maternal Grandmother Cervical cancer Other Mental health disorder Social History Household Members: Other Household Members Other:: adult children Housing: House Are you a primary animal caretaker supervisor to a significant other at home: No Do you presently have visiting nurse or other home services: No Alcohol intake: never Patient Tobacco Use Status: Former Tobacco user Tobacco use type: Cigarette Years Smoked: quit 1989 e-Cigarette/Vaping Use: Never Used Second Hand Smoke Exposure: No service: No Current occupational status: disabled Cognitive needs: Yes (cane) Hearing needs: No Vision needs: Yes (glasses) Female Reproductive History Menstrual Age of Menarche: 14 Coding
[2024-10-10 15:58] VITALS: BP 128/90; PULSE 88; O2SAT 100; BMI 22.5
== END 2024-10-10 16:28 | disposition home or self-care (01) ==
LOC: HO.HGI 15:48
PROVIDERS: PCP Internal Medicine; Visit Provider Nurse Practitioner
DX: R13.10 Dysphagia, unspecified (principal); K21.9 Gastro-esophageal reflux disease without esophagitis; K59.00 Constipation, unspecified; K58.9 Irritable bowel syndrome, unspecified
CPT/HCPCS: 99213

== ENCOUNTER → 2024-10-10 15:47 | Outpatient (BNVA) | payer OTHER, SELFPAY | PROVIDERS: PCP Internal Medicine; Visit Provider Nurse Practitioner | DX: R13.10 Dysphagia, unspecified (principal); K21.9 Gastro-esophageal reflux disease without esophagitis; K58.9 Irritable bowel syndrome, unspecified; K59.00 Constipation, unspecified | CPT/HCPCS: 99212 ==

== ENCOUNTER → 2024-10-18 16:09 | Outpatient (BNV) | payer OTHER, SELFPAY | PROVIDERS: PCP Internal Medicine; Visit Provider Radiology Diagnostic Radiology | DX: R51.9 Headache, unspecified (principal) | CPT/HCPCS: 70544 ==

== ENCOUNTER 2024-10-18 16:10 | Outpatient (REF) | payer OTHER, SELFPAY ==
--- NOTE | ~2024-10-18 | MR_ITS ---
EXAMINATION: MR ANGIOGRAPHY BRAIN WITHOUT CONTRAST CLINICAL INFORMATION: Primary stabbing headache. COMPARISON: None available. TECHNIQUE: 3-D [id number]. Maximum intensity projections eek of [place]ge[place]. FINDINGS: Anterior cerebral circulation: ICAs: No flow signal gap or abrupt cut off. Flow signal narrowing at the cavernous segments. MCA's: No flow signal gap or abrupt cut off. Bifurcation/trifurcation demonstrated no flow signal irregularity. ACAs: No flow signal gap or abrupt cut off. Anterior communicating artery flow signal is absent. Ophthalmic arteries flow signal is normal. Posterior communicating arteries flow signal is absent. Posterior cerebral circulation: V3/V4 segments demonstrated no flow signal gap or abrupt cut off or intimal flap. Right vertebral artery is dominant. PICA flow signal is normal. Right anterior inferior cerebral arteries flow signal is present. Basilar artery flow signal demonstrates no flow signal gap or intimal flap. Superior cerebellar arteries flow signal is normal. coding support specialist: No flow signal gap or abrupt cut off. MR/MR angio head wo con IMPRESSION: Flow signal narrowing cavernous segments both ICAs likely related to atherosclerosis disease. No main cerebral artery occlusion or embolus or gross cerebral aneurysm. Right vertebral artery is dominant. Electronically signed by: Desmond Dewey MD 10/20/2024 07:44 AM EDT
== END 2024-10-18 16:11 | disposition home or self-care (01) ==
LOC: HO.MRI 16:10
PROVIDERS: PCP Internal Medicine; Visit Provider Nurse Practitioner Family
DX: G44.85 Primary stabbing headache (principal); R44.3 Hallucinations, unspecified; Z82.49 Family history of ischemic heart disease and other diseases of the circulatory system
CPT/HCPCS: 70544

== ENCOUNTER → 2024-11-04 20:10 | Outpatient (BNV) | payer OTHER, SELFPAY | PROVIDERS: PCP Internal Medicine; Visit Provider Specialist | DX: R53.1 Weakness (principal); W19.XXXA Unspecified fall, initial encounter | CPT/HCPCS: 71046 ==

== ENCOUNTER 2024-11-04 20:43 | Emergency (ER) | payer OTHER, SELFPAY ==
--- NOTE | 2024-11-04 | ECG_ITS ---
Test Reason : DIZZINESS Blood Pressure : */* mmHG Vent. Rate : 89 BPM Atrial Rate : 89 BPM P-R Int : 138 ms QRS Dur : 84 ms QT Int : 384 ms P-R-T Axes : 62 19 72 degrees QTcB Int : 467 ms Normal sinus rhythm Normal ECG When compared with ECG of 06-Sep-2023 08:04, Nonspecific T wave abnormality no longer evident in Inferior leads Nonspecific T wave abnormality, improved in Lateral leads QT has lengthened Referred By: Generic ED Physician Electronically Signed By: ZAY ZAZUETA
--- NOTE | ~2024-11-04 | CT_ITS ---
CLINICAL HISTORY: fall CT head without contrast Comparison: CT/REG/SR - CT HEAD/BRAIN WO IV CON - 09/04/22 12:57 EDT Findings: No intra-axial mass, midline shift, hydrocephalus, or acute hemorrhage. No significant atrophy-like change or white matter disease. Atherosclerotic vascular disease. Stable small calcification in inferior posterolateral aspect of right occipital lobe. Left maxillary sinus mucous retention cyst/polyp. Otherwise sinuses and mastoid air cells are clear. The orbits are unremarkable. No acute skull fracture. IMPRESSION: 1. No acute intracranial findings. This document has been electronically signed by: Nancy Olivera MD on 11/04/2024 22:17:36
--- NOTE | ~2024-11-04 | CT_ITS ---
CLINICAL HISTORY: fall CT cervical spine without contrast Comparison: None provided Findings: Vertebral alignment is within normal limits. Degenerative changes at C5-6 and C6-7. No acute fractures or dislocations. No acute findings on limited view of the intracranial contents. Soft tissues of the neck are normal. Lateral left apical linear opacity either subsegmental atelectasis or scarring. IMPRESSION: No acute findings. This document has been electronically signed by: Nancy Olivera MD on 11/04/2024 22:21:47
--- NOTE | ~2024-11-04 | XR_ITS ---
CLINICAL HISTORY: weakness, falling 2 view chest x-ray Comparison: CR/MT/SR - XR CHEST 2 VIEWS - 09/06/23 09:12 EDT Findings: Heart size is normal. Pulmonary vasculature within normal limits. No consolidation, pleural effusion or pneumothorax. Possible mild hyperinflation. No acute fracture. IMPRESSION: 1. No acute findings. This document has been electronically signed by: Nancy Olivera MD on 11/05/2024 00:44:45
--- NOTE | ~2024-11-04 | XR_ITS ---
CLINICAL HISTORY: fall, pain 3 views lumbar spine Comparison: CR/NV/SR - XR LUMBAR SPINE 2-3 VIEWS - 11/20/21 19:44 EDT Findings: No lumbar spondylolisthesis visualized. No acute fractures or dislocation. Minimal degenerative endplate changes are present at the lumbar spine. Surgical clips are present over the left upper abdominal quadrant. IMPRESSION: 1. No acute fracture or dislocation injury identified at the lumbar spine. This document has been electronically signed by: Aleksander Shah MD on 11/05/2024 02:17:22
--- NOTE | ~2024-11-04 | XR_ITS ---
CLINICAL HISTORY: fall, pain 3 views sacrum and coccyx Comparison: None provided Findings This examination is mildly limited by overlying bowel gas. No acute fracture injury of the sacrum or coccyx identified. IMPRESSION: 1. Mildly limited examination related to overlying bowel gas. No acute fracture injury identified at the sacrum/coccyx. This document has been electronically signed by: Aleksander Shah MD on 11/05/2024 02:23:19
[2024-11-04 20:48] VITALS: BP 137/80; PULSE 93; RESP 15; TEMP 36.6; O2SAT 100; BMI 24.5
[2024-11-04 21:06] LABS: MANUAL DIFF FLAG NO
[2024-11-04 21:08] LABS: Hematocrit 31.4 % (37.0-47.0); Hemoglobin 10.9 g/dl (12.0-16.0); Imm Gran Abs Auto 0.01 X10*3/uL (0.00-0.03); Imm Gran Pct Auto 0.1 % (0.0-0.4); Lymphocytes Absolute Auto 1.8 X10*3/uL (1.2-4.9); Mean Corpuscular HGB Conc 34.7 g/dl (31.0-35.0); Mean Corpuscular Hemoglobin 29.1 pg (27.0-33.0); Mean Corpuscular Volume 84.0 fL (80.0-98.0); NRBC Abs Auto 0.000 X10*3/uL (0.0-0.012); NRBC Pct Auto 0.0 /100WBC (0.0-0.2); Platelet Count 273 X10*3/uL (160-400); Red Blood Count 3.74 X10*6/uL (4.20-5.50); White Blood Count 7.4 X10*3/uL (4.8-10.8)
[2024-11-04 21:23] LABS: Alanine Aminotransferase 53 U/L (0-31); Albumin Level 4.3 g/dL (3.5-5.0); Alkaline Phosphatase 61 U/L (39-117); Anion Gap 11 (12-20); Aspartate Amino Transferase 48 U/L (5-31); Blood Urea Nitrogen 14 mg/dL (9-16); Calcium 9.1 mg/dL (8.4-10.2); Carbon Dioxide 27 mmol/L (22-29); Chloride 108 mmol/L (96-108); Creatinine Clr Calc Pharmacy 48.9; Estimated Glomerular Filt Rate 53; Potassium 4.4 mmol/L (3.3-5.1); Sodium 142 mmol/L (135-145); Total Protein 6.4 g/dL (6.5-8.0)
[2024-11-04 21:29] LABS: Troponin-I High Sensitivity 4.1 ng/L (<3.5-17.0)
[2024-11-04 22:31] VITALS: BP 137/80; PULSE 93; RESP 15; TEMP 36.6; O2SAT 100
--- NOTE | 2024-11-05 00:50 | ED.FALL ---
HPI - Fall General Chief Complaint: Fall Stated Complaint: Fall Time Seen by Provider: 11/04/24 23:37 Source: patient and old records reviewed Mode of arrival: wheelchair Limitations: no limitations History of Present Illness ED Provider: Dr. Elena Shelton HPI Narrative: 59-year-old female with a history of HTN, HLD, IBS, dysphagia, GERD, gastrectomy with malabsorption, legally blind, PTSD, anxiety, presenting after a fall that occurred at home today. Patient admits that she has been having frequent falls over the last couple of months. Was seen by her primary care doctor and neurologist, referred to a neurosurgeon for ?something wrong with my arteries?. Falls or associated with dizzy spells. Feels as though ?my legs do not work right?. Feels as though she sometimes gets tangled up and will fall. Today fell down set as cement steps. Hit her head on the cement but did not lose consciousness. Describes a headache, bilateral shoulder pain, sacral pain from the fall. No breaks in the skin. No midline neck tenderness. Ambulatory after the fall without assistance. Denies illness prior to the fall including fever, cough, cold-type symptoms, chest pain, difficulty breathing, changes in her chronic abdominal pain, nausea, vomiting, bowel changes or urinary complaints. No focal weakness of the extremities. Has an appointment with a neurosurgeon in December. Related Data Home Medications ?Medication ?Instructions ?Recorded ?Confirmed bupropion HCl 150 mg 24 hr tablet, 300 mg PO QAM 03/05/20 09/18/24 extended release clonazepam 0.5 mg tablet 0.5 mg PO DAILY PRN Anxiety 06/08/20 09/18/24 sasetrzejfvi-azcrhepu-fgxikh tablet 1 tab PO DAILY 06/08/20 09/18/24 acetaminophen 500 mg tablet 1,000 mg PO Q6H PRN Pain, Mild 12/23/21 09/18/24 (Tylenol Extra Strength) lactobacillus combination no.9 4 4,000 mmu cells PO DAILY 01/25/23 09/18/24 billion cell capsule (Adult 50 Plus Probiotic) fluoxetine 40 mg capsule See Rx Instructions PO QAM 01/29/24 09/18/24 fluoxetine 20 mg capsule 20 mg PO QAM 03/13/24 09/18/24 tirzepatide (weight loss) 12.5 12.5 mg subcut QWEEK 10/10/24 mg/0.5 mL subcutaneous pen injector (Zepbound) Previous Rx's ?Medication ?Instructions ?Recorded prazosin 1 mg capsule 2 mg (2 x 1 mg) PO BEDTIME 30 days 05/05/22 #60 caps ziprasidone HCl 20 mg capsule 20 mg PO BEDTIME 30 days #30 caps 05/05/22 imipramine HCl 25 mg tablet 25 mg PO BEDTIME #30 tabs 02/21/24 ramelteon 8 mg tablet 8 mg PO BEDTIME 30 days #30 tabs 03/13/24 metoprolol succinate 25 mg 25 mg PO DAILY 30 days #90 tabs 05/21/24 tablet,extended release 24 hr lemborexant 5 mg tablet (Dayvigo) 5 mg PO BEDTIME 30 days #30 tabs 05/23/24 simvastatin 10 mg tablet 10 mg PO BEDTIME #90 tabs 05/28/24 ferrous sulfate 325 mg (65 mg 325 mg PO DAILY #90 tabs 06/02/24 iron) tablet lisinopril 20 mg tablet 20 mg PO DAILY #90 tabs 08/14/24 folic acid 1 mg tablet 1 mg PO DAILY #30 tabs 08/22/24 cholecalciferol (vitamin D3) 125 125 mcg PO DAILY #90 caps 08/31/24 mcg (5,000 unit) capsule magnesium oxide 400 mg (241.3 mg 400 mg PO BEDTIME 30 days #30 tabs 09/18/24 magnesium) tablet riboflavin (vitamin B2) 400 mg 400 mg PO DAILY 30 days #30 tabs 09/18/24 tablet dicyclomine 20 mg tablet 40 mg (2 x 20 mg) PO QID PRN for 10/10/24 abdominal pain #240 tabs fjirgs-bdbbnqcb-hvedrrm 1 cap PO QID #120 caps 10/10/24 36,000-114,000-180,000 unit capsule,delay rel (Creon) omeprazole 20 mg capsule,delayed 40 mg (2 x 20 mg) PO BID #180 caps 10/10/24 release sennosides 8.6 mg tablet (senna) 17.2 mg (2 x 8.6 mg) PO BEDTIME 10/10/24 #180 tabs ascorbic acid (vitamin C) 500 mg 500 mg PO DAILY #90 caps 10/18/24 tablet (Vitamin C) cyclobenzaprine 10 mg tablet 10 mg PO TID #10 tabs 11/05/24 Allergies Allergy/AdvReac Type Severity Reaction Status Date / Time No Known Allergies (No Known Allergy Verified 11/04/24 20:50 Allergies*) Review of Systems Review of Systems: Yes all other systems are reviewed and are negative (As per HPI) [facility] Past Medical History Attestation statement: The following information was validated with the patient. Medical History Dysphagia RUQ abdominal pain Anemia Vision changes Overweight (BMI 25.0-29.9) Gallbladder contraction Thrush, oral Pre-op evaluation Fatigue Family history of dementia Dizziness Chest pain Palpitations Forgetfulness SOB (shortness of breath) on exertion Rectal pain Right renal stone COVID-19 Nausea and vomiting Diverticulitis Onychomycosis Annual physical exam 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 Rectal spasm Abdominal cramping Diarrhea Esophageal dysmotility Overweight Abscess of finger of left hand Constipation History of colon polyps (~2015) Incarcerated hiatal hernia Achalasia Family history of polyps in the colon Nausea Snoring Hypersomnolence Intestinal malabsorption following gastrectomy Shoulder pain, right Neck pain Polyarthralgia Plantar fasciitis of left foot Impaired glucose tolerance Cervical radiculopathy Hypercholesterolemia Obesity (BMI 30-39.9) Insomnia Vitamin D deficiency PTSD (post-traumatic stress disorder) Polymyalgia HTN (hypertension) GERD (gastroesophageal reflux disease) Surgical History History of sleeve gastrectomy (~2016) Hx of cataract extraction History of repair of hiatal hernia History of History of laparoscopic adjustable gastric banding (~2010) History of bilateral breast reduction surgery (~2011) History of esophagogastroduodenoscopy (EGD) (~2020) Hx of abdominoplasty S/P laparoscopic sleeve gastrectomy (~2016) History of excision of mass (~2016) History of colonoscopy (~2015) Status post panniculectomy (~2013) History of carpal tunnel release (~2001) History of neck surgery History of tubal ligation (~2000) Family History Family History Father Diabetes Mother High blood pressure High cholesterol Dementia Daughter Healthy female Son No problems noted. Son High blood pressure High cholesterol Sister Cervical cancer Maternal Grandmother Cervical cancer Other Mental health disorder Social History Social History Household Members: Other Household Members Other:: adult children Housing: House Are you a primary sub acute care nurse to a significant other at home: No Do you presently have visiting nurse or other home services: No Alcohol intake: never Patient Tobacco Use Status: Former Tobacco user Tobacco use type: Cigarette Years Smoked: quit smoking 1990 Smoked in Last 30 Days: No e-Cigarette/Vaping Use: Never Used Second Hand Smoke Exposure: No Use of substances other than those prescribed or required for medical reasons: No Advance Directives: No Advance Directives Information Provided: No Do you have a plan to hurt others: No Plan Patient : No service: No Current occupational status: disabled Cognitive needs: Yes (cane) Hearing needs: No Vision needs: Yes (glasses) Physical Exam Vital Signs: Vital Signs: Last Vital Signs Temp 98.6 F 11/05/24 01:41 Pulse 82 11/05/24 01:41 Resp 20 11/05/24 01:41 BP 142/85 H 11/05/24 01:41 Pulse Ox 100 11/05/24 01:41 O2 Del Method Room Air 11/05/24 01:41 BMI result Body Mass Index 24.5 GENERAL: Uncomfortable-Appearing, conversant, mild distress due to pain. SKIN: Normal skin color for ethnicity, warm, dry, intact, no rashes noted. HEENT: Normocephalic, atraumatic, no stridor, airway patent, no raccoon's eyes, no Longo sign, dentition intact, EOMI. NECK: Soft, supple, full ROM, midline structures nontender, no step-offs, no deformities, no lymphadenopathy, bilateral trapezius muscles are tender to palpation with hypertonicity. CHEST: Heart regular rate and rhythm, no murmurs, symmetric chest rise and fall, no crepitus. PULMONARY: Clear to auscultation bilaterally, no labored breathing, no wheezes/rhales/rhonchi. ABDOMINAL: Soft, nondistended, nontender, positive bowel sounds in all quadrants. : Deferred. MUSCULOSKELETAL: Normal tone, full range of motion, no deformities, small contusion overlying the sacrum, no crepitus, no step-offs, tender to palpation in this area, neurovascularly intact distally. NEURO: Alert and oriented x3, CN II through XII intact, equal strength and sensation bilateral upper and lower extremities, no focal neurologic deficits. PSYCHIATRIC: Anxious affect, fluid speech, good eye contact and appropriate demeanor. Medications Administered Discontinued Medications Generic Name Dose Route Start Last Admin Trade Name Andrea PRN Reason Stop Dose Admin Acetaminophen 975 mg 11/05/24 00:41 11/05/24 01:10 Acetaminophen 325 Mg Tablet PO 11/05/24 00:42 975 mg ONCE ONE Administration Diazepam 2 mg 11/05/24 00:41 11/05/24 01:10 Diazepam 2 Mg Tablet PO 11/05/24 00:42 2 mg ONCE ONE Administration Medical Decision Making Medical Decision Making [facility] Narrative: Patient presents today with a chief complaint of dizziness, multiple falls at home. Differential diagnosis is extremely broad and includes posterior circulation deficits causing vestibular basilar symptoms, anemia, hypovolemia, middle or inner ear problems, intracranial abnormality such as stroke bleed or tumor, electrolyte abnormalities, acute traumatic injury including head bleed, concussion, spinal fracture, among many others. This patient does not have any focal neurological findings at this time. 12:00 a.m. patient has negative head and neck CT. Added on x-ray of the spine and chest. She has no chest pain or focal neurologic deficits on exam. Having some hypertonicity of the bilateral trapezius muscles of the neck on exam. We will treat with muscle relaxer, acetaminophen. She has follow-up with a neurosurgeon in a couple of months to evaluate for some type of arterial flow issue seen on MRI at the end of September. I see no acute traumatic injury or indication for neurologic consult/admission at this time. Or a.m. patient feeling improved after muscle relaxers. Resting comfortably and ambulatory without assistance. Using shared decision making, plan for discharge home to follow-up with primary care and/or specialist. Patient understands and agrees with plan for discharge. Discharged home in stable condition. Differential Diagnosis Differential Diagnoses: The differential diagnosis associated with the presentation includes (As above) Admission/Observation Consideration of admission/observation: Escalation of care including admission/observation considered Lab Data MDM Lab Attestation statement: I reviewed the patient's lab results. 11/04/24 21:03 11/04/24 21:03 Labs: Lab Results 11/04/24 Range/Units 21:03 WBC 7.4 (4.8-10.8) X10*3/uL RBC 3.74 L (4.20-5.50) X10*6/uL Hgb 10.9 L (12.0-16.0) g/dl Hct 31.4 L (37.0-47.0) % MCV 84.0 (80.0-98.0) fL MCH 29.1 (27.0-33.0) pg MCHC 34.7 (31.0-35.0) g/dl RDW 13.5 (11.0-16.0) % Plt Count 273 (160-400) X10*3/uL MPV 8.6 L (9.4-12.3) fL Immature Gran % (Auto) 0.1 (0.0-0.4) % Neut % (Auto) 61.7 (45-73) % Lymph % (Auto) 24.8 (20-40) % Harvey % (Auto) 12.0 H (2-11) % Eos % (Auto) 0.9 (0-4) % Baso % (Auto) 0.5 (0-2) % Lymph # (Auto) 1.8 (1.2-4.9) X10*3/uL Harvey # (Auto) 0.9 (0.1-1.2) X10*3/uL Eos # (Auto) 0.1 (0.0-0.4) X10*3/uL Baso # (Auto) 0.0 (0.0-0.2) X10*3/uL Abs Immat Gran (auto) 0.01 (0.00-0.03) X10*3/uL Absolute Neuts (auto) 4.6 (2.0-8.3) x10*3/uL Absolute Nucleated RBC 0.000 (0.0-0.012) X10*3/uL Nucleated RBC % (auto) 0.0 (0.0-0.2) /100WBC Sodium 142 (135-145) mmol/L Potassium 4.4 (3.3-5.1) mmol/L Chloride 108 (96-108) mmol/L Carbon Dioxide 27 (22-29) mmol/L Anion Gap 11 L (12-20) BUN 14 (9-16) mg/dL Creatinine 1.05 (0.5-1.4) mg/dL Estim Creat Clear Calc 48.9 Estimated GFR 53 Random Glucose 79 (60-115) mg/dL Calcium 9.1 (8.4-10.2) mg/dL Total Bilirubin 0.3 (0.0-1.0) mg/dL AST 48 H (5-31) U/L ALT 53 H (0-31) U/L Alkaline Phosphatase 61 (39-117) U/L Troponin I High Sens 4.1 D (<3.5-17.0) ng/L Total Protein 6.4 L (6.5-8.0) g/dL Albumin 4.3 (3.5-5.0) g/dL Independent Interpretation I performed an independent interpretation of an: EKG Interpretation: 2053 My independent interpretation of the ECG reveals normal sinus rhythm with rate of 89, normal axis, normal intervals, no ST elevations or depressions to suggest ischemic changes, relatively unchanged from previous on 09/06/20234 My independent interpretation of the chest x-ray reveals no consolidations, pulmonary edema, pleural effusion, pneumothorax, obvious bony abnormalities. Radiology Impression Discussion of test interpretation with radiology: I have reviewed the radiologist's reading. Radiologist Impression: Comparison: None provided Findings: Vertebral alignment is within normal limits. Degenerative changes at C5-6 and C6-7. No acute fractures or dislocations. No acute findings on limited view of the intracranial contents. Soft tissues of the neck are normal. Lateral left apical linear opacity either subsegmental atelectasis or scarring. IMPRESSION: No acute findings. This document has been electronically signed by: Nancy Olivera MD on 11/04/2024 22:21:47 CT head without contrast Comparison: CT/REG/SR - CT HEAD/BRAIN WO IV CON - 09/04/22 12:57 EDT Findings: No intra-axial mass, midline shift, hydrocephalus, or acute hemorrhage. No significant atrophy-like change or white matter disease. Atherosclerotic vascular disease. Stable small calcification in inferior posterolateral aspect of right occipital lobe. Left maxillary sinus mucous retention cyst/polyp. Otherwise sinuses and mastoid air cells are clear. The orbits are unremarkable. No acute skull fracture. IMPRESSION: 1. No acute intracranial findings. This document has been electronically signed by: Nancy Olivera MD on 11/04/2024 22:17:36 External Record Review External record reviewed: Outpatient record and Prior outpatient radiology Prescription Management I considered prescription management with: Pain Medication Chronic Conditions Patient?s care impacted by: Hypertension and Other (Legally blind, anemia, PTSD, GERD) Social Determinants Patient?s care significantly limited by Social Determinants of Health including: Problems related to primary support group Discharge Plan Discharge Clinical Impression: Frequent falls, Contusion of sacrum, Concussion without loss of consciousness Patient Disposition: Home, Self-Care Instructions: Contusion in Adults (ED), Fall Prevention (ED) Additional Instructions: Use cyclobenzaprine as needed for muscle spasms. Do not take this medication if UR drowsy or if you are going to be up moving around. Return to the emergency department with any new or worsening symptoms including: Worsening headaches, vision changes, inability to tolerate food or drink, fevers greater than 100?, any new symptom that concerns you. Call 911 with any medical emergency. Prescriptions: New cyclobenzaprine 10 mg tablet 10 mg PO TID Qty: 10 0RF No Action prazosin 1 mg capsule 2 mg PO BEDTIME 30 Days Qty: 60 0RF ziprasidone HCl 20 mg capsule 20 mg PO BEDTIME 30 Days Qty: 30 0RF metoprolol succinate 25 mg tablet extended release 24 hr 25 mg PO DAILY 30 Days Qty: 90 1RF Dayvigo 5 mg tablet 5 mg PO BEDTIME 30 Days Qty: 30 3RF simvastatin 10 mg tablet 10 mg PO BEDTIME Qty: 90 2RF ferrous sulfate 325 mg (65 mg iron) tablet 325 mg PO DAILY Qty: 90 3RF lisinopril 20 mg tablet 20 mg PO DAILY Qty: 90 2RF folic acid 1 mg tablet 1 mg PO DAILY Qty: 30 5RF cholecalciferol (vitamin D3) 125 mcg (5,000 unit) capsule 125 mcg PO DAILY Qty: 90 2RF ascorbic acid (vitamin C) [Vitamin C] 500 mg tablet 500 mg PO DAILY Qty: 90 3RF clonazepam 0.5 mg Tablet 0.5 mg PO DAILY PRN (Reason: Anxiety) [id number]-zfdtbxro-kbnqjv Tablet 1 tab PO DAILY Adult 50 Plus Probiotic 4 billion cell capsule 4,000 mmu cells PO DAILY Rx Instructions: administer with a meal bupropion HCl 150 mg tablet extended release 24 hr 300 mg PO QAM acetaminophen [Tylenol Extra Strength] 500 mg tablet 1,000 mg PO Q6H PRN (Reason: Pain, Mild) fluoxetine 40 mg capsule See Rx Instructions PO QAM Patient Comments: 40 mg +20 mg = 60 mg QD Rx Instructions: orally every morning; fluoxetine 20 mg capsule 20 mg PO QAM ramelteon 8 mg tablet 8 mg PO BEDTIME 30 Days Qty: 30 3RF imipramine HCl 25 mg tablet 25 mg PO BEDTIME Qty: 30 6RF riboflavin (vitamin B2) 400 mg tablet 400 mg PO DAILY 30 Days Qty: 30 6RF magnesium oxide 400 mg (241.3 mg magnesium) tablet 400 mg PO BEDTIME 30 Days Qty: 30 6RF Rx Instructions: may hold for loose stools Zepbound 12.5 mg/0.5 mL pen injector 12.5 mg subcut QWEEK omeprazole 20 mg capsule,delayed release(DR/EC) 40 mg PO BID Qty: 180 2RF Creon 36,000-114,000- 180,000 unit capsule,delayed release(DR/EC) 1 cap PO QID Qty: 120 6RF dicyclomine 20 mg tablet 40 mg PO QID PRN (Reason: for abdominal pain) Qty: 240 3RF sennosides [senna] 8.6 mg tablet 17.2 mg PO BEDTIME Qty: 180 0RF Print Language: Japanese
[2024-11-05 01:41] VITALS: BP 142/85; PULSE 82; RESP 20; TEMP 37; O2SAT 100
[2024-11-05 04:19] VITALS: BP 124/84; PULSE 86; RESP 16; TEMP 37; O2SAT 100
== END 2024-11-05 04:24 | disposition home or self-care (01) ==
PROVIDERS: Emergency Provider Emergency Medicine; PCP Internal Medicine
DX: S06.0X0A Concussion without loss of consciousness, initial encounter (principal); S30.0XXA Contusion of lower back and pelvis, initial encounter; W19.XXXA Unspecified fall, initial encounter; Y93.9 Activity, unspecified; Y92.009 Unspecified place in unspecified non-institutional (private) residence as the place of occurrence of the external cause; Y99.9 Unspecified external cause status; R51.9 Headache, unspecified; H54.8 Legal blindness, as defined in USA; I10 Essential (primary) hypertension; E78.5 Hyperlipidemia, unspecified; Z79.899 Other long term (current) drug therapy
CPT/HCPCS: 36415; 70450; 71046; 72100; 72125; 72220; 80053; 84484; 85025; 93005; 99284; 99285

== ENCOUNTER → 2024-11-04 20:54 | Outpatient (BNV) | payer OTHER, SELFPAY | PROVIDERS: Emergency Provider Emergency Medicine; PCP Internal Medicine; Visit Provider Internal Medicine | DX: R42 Dizziness and giddiness (principal) | CPT/HCPCS: 93010 ==

== ENCOUNTER → 2024-11-05 00:47 | Outpatient (BNV) | payer OTHER, SELFPAY | PROVIDERS: Emergency Provider Emergency Medicine; PCP Internal Medicine; Visit Provider Radiology Diagnostic Radiology | DX: M51.369 Other intervertebral disc degeneration, lumbar region without mention of lumbar back pain or lower extremity pain (principal); M54.18 Radiculopathy, sacral and sacrococcygeal region | CPT/HCPCS: 72100; 72220 ==

== ENCOUNTER 2024-12-11 09:01 | Outpatient (REF) | payer OTHER, SELFPAY ==
--- OUTSIDE RECORDS SUMMARY | 2024-12-09 15:15 | XMS_ITS | Encounter Summary ---
Author Organization [facility] Address [address] [place] [address] Care Team Providers Care Job Placement Counselor Name Role Phone Demi Lr MD Primary Care Provider [phone] Reason for Visit * Reason Comments Follow-up 2 month Encounter Details Date Type Department Care Team ([facility] st Contact Info) Description 12/09/2024 3:15 PM EDT Office Visit Bariatric Surgery - [place] [address] [place] [id number] Chapis Ken PA [address] [place] [address] Hx of obesity (Primary Dx) Social History Tobacco Use Types Packs/Day Years Used Date Smoking Tobacco: Never Smokeless Tobacco: Never Alcohol Use Standard Drinks/Week Comments No 0 (1 standard drink = 0.6 oz pur e alcohol) Comments Unknown Sex and Gender Information Value Date Recorded Sex Assigned at Not on file Legal Sex Female 11:26 PM EST Gender Identity Not on file Sexual Orientation Not on file documented as of this encounter Last Filed Vital Signs Vital Sign Reading Time Taken Comments Blood Pressure 94/65 12/09/2024 3:03 PM EDT Pulse 96 12/09/2024 3:03 PM EDT Temperature - - Respiratory Rate - - Oxygen Saturation - - Inhaled Oxygen Concentration - - Weight 52.8 kg (116 lb 6.4 oz) 12/09/2024 3:03 P M EDT Height 157.5 cm (5' 2 ) 12/09/2024 3:03 PM EDT Body Mass Index 21.29 12/09/2024 3:03 PM EDT documented in this encounter Ordered Prescriptions Prescription Sig Dispense Quantity Refills Last Filled Start Date End Date tirzepatide, weight loss, (Zepbound) 10 mg/0.5 mL injection Inject 0.5 mL (10 mg total) under the skin every 7 (seven) days. 2 mL 12/09/2024 documented in this encounter Plan of Treatment Upcoming Encounters Date Type Department Care Team (Late st Contact Info) Description 01/06/2025 10:30 AM EDT Consult Neurosurgery [place] - [place] [address] [facility] [address] [place] [id number] Ad[facility] Mueller [facility] [address] [facility] [address] [place] [address] 05/11/2025 3:15 PM EST Office Visit Bariatric Surgery - [place] [address] [facility] [address] [place] [address] Chapis Ken PA [address] [facility] [address] [place] [address] Scheduled Orders Name Type Priority Associated Diagnoses Orde r Schedule Folate Lab Routine Hx of obesity 1 Occurrences starting 12/09/2024 until 12/09/2025 Comprehensive metabolic panel Lab Routine Hx of obesity 1 Occurrences starting 12/09/2024 until 12/09/2025 Iron and TIBC Lab Routine Hx of obesity 1 Occurrences starting 12/09/2024 until 12/09/2025 Zinc Lab Routine Hx of obesity 1 Occurrences starting 12/09/2024 until 12/09/2025 Vitamin D 25 hydroxy Lab Routine Hx of obesity 1 Occurrences starting 12/09/2024 until 12/09/2025 Vitamin B6 Lab Routine Hx of obesity 1 Occurrences starting 12/09/2024 until 12/09/2025 Vitamin B12 Lab Routine Hx of obesity 1 Occurrences starting 12/09/2024 until 12/09/2025 Selenium serum Lab Routine Hx of obesity 1 Occurrences starting 12/09/2024 until 12/09/2025 Vitamin B1 Lab Routine Hx of obesity 1 Occurrences starting 12/09/2024 until 12/09/2025 documented as of this encounter Visit Diagnoses Diagnosis Hx of obesity- Primary documented in this encounter Discontinued Medications Medication Sig Discontinue Reason Start Date End Da te tirzepatide, weight loss, (Zepbound) 15 mg/0.5 mL injection Inject 0.5 mL (15 mg total) under the skin every 7 (seven) days for 28 days. 11/21/2024 12/09/2024 documented as of this encounter Care Teams Job Placement Counselor Relationship Specialty Start Date End Date Demi Lr MD [address] [place] [address] [address] [facility] [place] [address] PCP - General Internal Medicine 07/01/20 documented as of this encounter
[2024-12-11 09:25] LABS: MANUAL DIFF FLAG NO
[2024-12-11 09:31] LABS: Hematocrit 37.1 % (37.0-47.0); Hemoglobin 12.1 g/dl (12.0-16.0); Imm Gran Abs Auto 0.01 X10*3/uL (0.00-0.03); Imm Gran Pct Auto 0.2 % (0.0-0.4); Lymphocytes Absolute Auto 1.5 X10*3/uL (1.2-4.9); Mean Corpuscular HGB Conc 32.6 g/dl (31.0-35.0); Mean Corpuscular Hemoglobin 28.2 pg (27.0-33.0); Mean Corpuscular Volume 86.5 fL (80.0-98.0); NRBC Abs Auto 0.000 X10*3/uL (0.0-0.012); NRBC Pct Auto 0.0 /100WBC (0.0-0.2); Platelet Count 295 X10*3/uL (160-400); Red Blood Count 4.29 X10*6/uL (4.20-5.50); White Blood Count 5.0 X10*3/uL (4.8-10.8)
--- OUTSIDE RECORDS SUMMARY | 2024-12-11 10:03 | XMS_ITS | Patient Health Record ---
Author Organization [facility] Address [address] [facility] [address] [place] [address] Support Name Relationship Address Phone Hannah Snell Guarantor Unknown [phone] Allergies No Known Allergies Reason For Referral [...] W/U Status Risk Notes Problem Mixed hyperlipidemia (051638668) Mixed hyperlipidemia (E78.2) Active confirmed Problem Moderate recurrent major depression (19249381) Major depressive disorder, recurrent, moderate (F33.1) Active confirmed Problem Generalized anxiety disorder (02438356) Generalized anxiety disorder (F41.1) Active confirmed Problem Post-traumatic stress disorder (93869267) Post-traumatic stress disorder, unspecified (F43.10) Active confirmed Problem Insomnia (252832101) Insomnia, unspecified (G47.00) Active confirmed Problem Essential hypertension (99007771) Essential (primary) hypertension (I10) Active confirmed Problem Body mass index 30.00 to 34.99 (275450687236638) Body mass index (BMI) 31.0-31.9, adult (Z68.31) Active confirmed Problem Body mass index 30.00 to 34.99 (392392797693001) Body mass index (BMI) 33.0-33.9, adult (Z68.33) Active confirmed Problem Body mass index 40+ - morbidly obese (348142771) Body mass index (BMI) 50-59.9 , adult (Z68.43) Active confirmed Problem Obese class II (344947422216378) Body mass index [BMI] 35.0-35.9, adult (Z68.35) Active confirmed Plan Of Treatment No Information Insurance Providers Payer Name Payer Address Payer Phone Subscriber Number Group Number Insured Name Patient Relationship to Insured Coverage Start Date Coverage End Date [facility] [address] [address] [place] [address] [phone] [id number] Hannah Snell Self - patient is the insured Medical (General) History Medical History History ICD Code anxiety/depression/PTSD, psychiatrist Dr Gregg Abbott, therapist hypertension hyperlipidemia osteoarthritis acid reflux Surgical History Surgery Date(Month/Year) gastric sleeve, 2017 x2 carpal tunnel, right hand breast reduction abdominoplasty Lap band 2010 and she was 260 pound and she dropped to 130 pounds
[2024-12-11 10:43] LABS: Alanine Aminotransferase 92 U/L (0-31); Albumin Level 4.6 g/dL (3.5-5.0); Alkaline Phosphatase 74 U/L (39-117); Anion Gap 11 (12-20); Aspartate Amino Transferase 62 U/L (5-31); Blood Urea Nitrogen 13 mg/dL (9-16); Calcium 9.7 mg/dL (8.4-10.2); Carbon Dioxide 26 mmol/L (22-29); Chloride 107 mmol/L (96-108); Estimated Glomerular Filt Rate 43; Iron 73 mcg/dL (30-160); Percent Iron Saturation 34 % (15-50); Potassium 4.4 mmol/L (3.3-5.1); Sodium 140 mmol/L (135-145); Total Iron Binding Capacity 212 mcg/dL (228-428); Total Protein 6.9 g/dL (6.5-8.0); Unsaturated Iron Binding 139 ug/dL
[2024-12-11 10:55] LABS: Folate 16.2 ng/mL (> or = 4.0); Vitamin B12 640 pg/mL (200-900)
[2024-12-11 11:25] LABS: Ferritin 1696 ng/mL (10-250)
[2024-12-11 11:27] LABS: Syphilis Screen Nonreactive (Nonreactive)
[2024-12-12 13:19] LABS: Lyme Abs Screen <0.90 index
[2024-12-15 11:08] LABS: Anti Nuclear Antibody Screen NEGATIVE (NEGATIVE)
== END 2024-12-11 09:02 | disposition home or self-care (01) ==
LOC: HO.LAB 09:01
PROVIDERS: PCP Internal Medicine; Visit Provider Nurse Practitioner Family
DX: F41.1 Generalized anxiety disorder (principal); G44.85 Primary stabbing headache; Z90.3 Acquired absence of stomach [part of]; R44.3 Hallucinations, unspecified; D64.9 Anemia, unspecified
CPT/HCPCS: 36415; 80053; 82607; 82728; 82746; 83090; 83540; 83921; 84207; 84425; 84443; 85025; 85652; 86038; 86140; 86431; 86617; 86618; 86780

== ENCOUNTER 2024-12-25 15:57 | Outpatient (AMB) | payer OTHER, SELFPAY ==
[2024-12-25 16:32] VITALS: BP 136/70; PULSE 78; O2SAT 98; BMI 20.2
--- NOTE | 2024-12-25 16:32 | MHC.PC.OV ---
Vital Signs 12/25/24 16:32 Height 5 ft 2 in Weight 110 lb 8 oz BMI 20.2 BP 136/70 Blood Pressure Location Lt brachial Position Sitting Pulse 78 Pulse Oximetry (%) 98 Intake Visit Reasons: headaches, dizziness Executive Director Of Nursing Required: No Accompanied by: Allergies No Known Allergies (No Known Allergies*) Allergy (Verified 12/25/24 16:36) Tobacco use date assessed: 05/23/24 Dental Screening Dental Screen Date: 05/23/24 Did you have a dental visit in the last 12 months?: No Did you have a dental problem in the last 6 months where you did not have access to dental care?: No PFSH Medical History Dysphagia RUQ abdominal pain Anemia Vision changes Overweight (BMI 25.0-29.9) Gallbladder contraction Thrush, oral Pre-op evaluation Fatigue Family history of dementia Dizziness Chest pain Palpitations Forgetfulness SOB (shortness of breath) on exertion Rectal pain Right renal stone COVID-19 Nausea and vomiting Diverticulitis Onychomycosis Annual physical exam 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 Rectal spasm Abdominal cramping Diarrhea Esophageal dysmotility Overweight Abscess of finger of left hand Constipation History of colon polyps (~2015) Incarcerated hiatal hernia Achalasia Family history of polyps in the colon Nausea Snoring Hypersomnolence Intestinal malabsorption following gastrectomy Shoulder pain, right Neck pain Polyarthralgia Plantar fasciitis of left foot Impaired glucose tolerance Cervical radiculopathy Hypercholesterolemia Obesity (BMI 30-39.9) Insomnia Vitamin D deficiency PTSD (post-traumatic stress disorder) Polymyalgia HTN (hypertension) GERD (gastroesophageal reflux disease) Surgical History History of sleeve gastrectomy (~2016) Hx of cataract extraction History of repair of hiatal hernia History of History of laparoscopic adjustable gastric banding (~2010) History of bilateral breast reduction surgery (~2011) History of esophagogastroduodenoscopy (EGD) (~2020) Hx of abdominoplasty S/P laparoscopic sleeve gastrectomy (~2016) History of excision of mass (~2016) History of colonoscopy (~2015) Status post panniculectomy (~2013) History of carpal tunnel release (~2001) History of neck surgery History of tubal ligation (~2000) Family History Father Diabetes Mother High blood pressure High cholesterol Dementia Daughter Healthy female Son No problems noted. Son High blood pressure High cholesterol Sister Cervical cancer Maternal Grandmother Cervical cancer Other Mental health disorder Social History Household Members: Other Household Members Other:: adult children Housing: House Are you a primary day care center director to a significant other at home: No Do you presently have visiting nurse or other home services: No Alcohol intake: never Patient Tobacco Use Status: Former Tobacco user Tobacco use type: Cigarette Years Smoked: quit 1989 e-Cigarette/Vaping Use: Never Used Second Hand Smoke Exposure: No service: No Current occupational status: disabled Cognitive needs: Yes (cane) Hearing needs: No Vision needs: Yes (glasses) Female Reproductive History Menstrual Age of Menarche: 14 Questionnaire PHQ-9 Over the last 2 weeks, how often have you been bothered by any of the following problems? 1. Little interest or pleasure in doing things: more than half the days 2. Feeling down, depressed, or hopeless: several days 3. Trouble falling or staying asleep, or sleeping too much: several days 4. Feeling tired or having little energy: several days 5. Poor appetite or overeating: more than half the days 6. Feeling bad about yourself - or that you are a failure or have let yourself or your family down: several days 7. Trouble concentrating on things, such as reading the newspaper or watching television: more than half the days 8. Moving or speaking so slowly that other people could have noticed. Or the opposite - being so fidgety or restless that you have been moving around a lot more than usual: not at all 9. Thoughts that you would be better off or of hurting yourself in some way: not at all Total score: 10 Depression Screening Interpretation: Positive Depression Screening Done: Yes Source: Developed by Drs. Redd Chu, Vicki Patel, Tito Álvarez and colleagues, with an educational marily from [employer]. Thrive Questionnaire Date Thrive assessed: 12/24/24 I am a: Patient What is your living situation today?: I have a steady place to live Within the past 12 months, did the food you bought not last and you didn't have the money to get more?: Never true Within the past 12 months, did you worry whether your food would run out before you got money to buy more?: Never true Do you have trouble paying for medicines?: No Do you have trouble getting transportation to medical appointments?: No Do you have trouble paying your heating and electricity bill?: Yes Do you have trouble taking care of your child, family member or friend?: No Do you have trouble with day-to-day activities such as bathing, preparing meals, shopping, managing finances, etc.?: Yes Are you currently unemployed and looking for a job?: No Are you interested in more education?: No Please select the resources that you would like help with: Utilities Currently or been in a relationship where the following occur: No concerns reported THRIVE Score: 1 AUDIT C Alcohol Use Questionnaire (AUDIT-C) 1. How often do you have a drink containing alcohol?: Never Total Score: 0 ILENE-7 AMB Questionnaire ILENE-7 Date ILENE - 7 assessed: 05/23/24 Feeling nervous, anxious, or on edge: 1 = Several days Not being able to stop or control worryin = Nearly every day Worrying too much about different things: 3 = Nearly every day Trouble relaxin = Nearly every day Being so restless that it is hard to sit still: 0 = Not at all Becoming easily annoyed or irritable: 2 = More than half the days Feeling afraid as if something awful might happen: 3 = Nearly every day Total ILENE-7 score (0-4 normal; 5-9 mild; 10-14 moderate; 15-21 severe): 15 Source: Developed by Drs. Redd Chu, Vicki Patel, Tito Álvarez and colleagues, with an educational marily from [employer]. Physical exam (Primary Care) Vital Signs: Last Vital Signs Pulse 78 12/25/24 16:32 BP 136/70 12/25/24 16:32 Pulse Ox 98 12/25/24 16:32 Next steps: Patient is very unsteady on walking but neurological exam is normal BMI result Body Mass Index 20.2 Tobacco/Smoking Status: Tobacco use Status Tobacco use date assessed 05/23/24 12/25/24 16:40 Patient Tobacco Use Status Former Tobacco user 12/25/24 16:40 Tobacco use type Cigarette 12/25/24 16:40 e-Cigarette/Vaping Use Never Used 12/25/24 16:40 PHQ-9: PHQ-9 Score PHQ-9: Total score 10 12/25/24 16:40 Depression Screening Interpretation: Positive Thrive Assessment: Date of Thrive Assessment Date Thrive assessed 12/24/24 12/25/24 16:40 Currently or been in a relationship where the following occur: No concerns reported Const General: alert; No acute distress Eyes Conjunctivae: conjunctivae normal Resp Auscultation: clear to auscultation bilaterally Cardio Rate: regular rate Rhythm: regular rhythm GI Inspection: Yes normal to inspection Extrem General: Yes normal to inspection and No edema Coding Level of Care Code Est Pt Level 4 (03165) Complex EM visit Add On G2211 Diagnoses Atherosclerosis of arteries I70.90 Essential hypertension I10 Hypertension type: essential hypertension Hypercholesterolemia E78.00 History of sleeve gastrectomy Z90.3 Obesity (BMI 30-39.9) E66.9 Gastroesophageal reflux disease without esophagitis K21.9 Esophagitis presence: without esophagitis Cognitive dysfunction F09 Dysuria R30.0 Gait instability R26.81 Assessment & Plan Assessment & Plan (1) Atherosclerosis of arteries: Code(s): I70.90 - Unspecified atherosclerosis Category: Medical Plan: Control the cholesterol, weight, blood pressure, discussed value of taking aspirin 81 mg once a day but concern about esophagitis also (2) HTN (hypertension): Code(s): I10 - Essential (primary) hypertension Category: Medical Qualifiers: Hypertension type: essential hypertension Qualified Code(s): I10 - Essential (primary) hypertension Plan: Continue with blood pressure medication. Decrease salt intake and exercise on lisinopril 20 mg once a day metoprolol 25 mg once a day monitor due to weight loss (3) Hypercholesterolemia: Code(s): E78.00 - Pure hypercholesterolemia, unspecified Category: Medical Plan: Avoid fried foods, chicken skin, eggs, butter margarine, pastries and meat. Be it pork or beef they have a lot of cholesterol on simvastatin 10 mg at bedtime (4) History of sleeve gastrectomy: Onset Date: ~2016 Comment: (laparoscopic gastric sleeve surgery - Dr. Rojo - 12/2016) Code(s): Z90.3 - Acquired absence of stomach [part of] Category: Surgical Plan: Continue to follow-up with bariatric surgery patient is on Zepbound also (5) Obesity (BMI 30-39.9): Comment: (Hx lap-band placed in 2010 & removed 2016 - s/p LSG 2017 Dr. Rojo) Code(s): E66.9 - Obesity, unspecified Category: Medical Plan: Diet and exercise (6) GERD (gastroesophageal reflux disease): Code(s): K21.9 - Gastro-esophageal reflux disease without esophagitis Category: Medical Qualifiers: Esophagitis presence: without esophagitis Qualified Code(s): K21.9 - Gastro-esophageal reflux disease without esophagitis Plan: Avoid the foods that causes that usually spicy foods, tomato products, juices, coffee, soda and foods that your sensitive to. After eating do not lie down, allow 3-4 hours before in lie down. And keep the head of bed above 30 degrees to avoid the acid from going up. (7) Cognitive dysfunction: Comment: MMSE 24 Code(s): F09 - Unspecified mental disorder due to known physiological condition Category: Medical Plan: Patient was advised to get neuropsych evaluation (8) Dysuria: Code(s): R30.0 - Dysuria Category: Medical (9) Gait instability: Code(s): R26.81 - Unsteadiness on feet Category: Medical Plan: high iron- advised to stop iron intake, low Vitamin b 1 and need for vitamin b 1(thiamine), increase oral fluids, concern on med that make her sleepy, advised stopping ramelteon, hold dayvigo and imipramine. Plan History of Present Illness The patient is a 59-year-old female presenting for a follow-up visit. The patient has a history of gastroesophageal reflux disease (GERD), hypercholesterolemia, and hypertension, which have been managed over the years. She also has a history of post-traumatic stress disorder (PTSD) and generalized anxiety disorder, which have been part of her ongoing mental health management. In 2016, the patient experienced significant weight loss, losing 35 pounds, which was noted in the context of her medical history. She has been following up with bariatric specialists, with her last visit in November 2024. The patient has a history of intracranial carotid stenosis, bilateral, and has been under regular monitoring. A recent MRA showed atherosclerosis without any major cerebral artery occlusion or embolus. She has experienced dysphagia, which has shown improvement, and was advised to undergo esophagogastroduodenoscopy (EGD) with dilatation. The patient is currently on omeprazole for esophagitis, which is consistent with her history of gastric bypass and use of Zepbound. The patient had a concussion without loss of consciousness, for which a CT scan showed negative results. She was prescribed muscle relaxers following the incident. Health Maintenance - Colonoscopy last performed in March 2022 - Mammogram last performed in February 2024 Social History Review of Systems Physical Exam Results - CT scan: Negative results for concussion without loss of consciousness - MRA: Showed atherosclerosis, no major cerebral artery occlusion or embolus Plan Patient was informed and verbally consented to the use of an ambient scribe for clinic note documentation during this visit. 1. Gastroesophageal Reflux Disease (Gerd) The patient is advised to continue omeprazole for management of GERD symptoms. An esophagogastroduodenoscopy (EGD) with dilatation is recommended to address dysphagia. 2. Hypercholesterolemia The patient is currently on simvastatin 10 mg at bedtime for cholesterol management. 3. Hypertension The patient is on lisinopril 20 mg once a day and metoprolol 25 mg once a day for blood pressure control. Blood pressure monitoring is advised due to recent weight loss. 4. Intracranial Carotid Stenosis, Bilateral The patient is advised to continue regular monitoring of intracranial carotid stenosis. Aspirin 81 mg once a day was discussed but concerns about esophagitis were noted. 5. Atherosclerosis The MRA findings indicate atherosclerosis, and the patient is advised to continue monitoring. 6. Concussion Without Loss Of Consciousness The patient was prescribed muscle relaxers following the concussion, and no further complications were noted. Discussion Notes During the visit, we discussed the management of GERD with omeprazole and the need for an EGD with dilatation due to dysphagia. The importance of continuing simvastatin for hypercholesterolemia and monitoring blood pressure due to recent weight loss was emphasized. We also reviewed the patient's intracranial carotid stenosis and atherosclerosis, advising regular monitoring and discussing the potential use of aspirin with caution due to esophagitis concerns. Patient Instructions - Continue taking omeprazole as prescribed for GERD management. - Schedule an esophagogastroduodenoscopy (EGD) with dilatation. - Continue simvastatin at bedtime for cholesterol management. - Monitor blood pressure regularly, especially due to recent weight loss. - Follow up with regular monitoring for intracranial carotid stenosis and atherosclerosis. Orders: Orders Comprehensive Met. Panel Today E78.00 - Pure hypercholesterolemia, unspecified Lipid Panel Today E78.00 - Pure hypercholesterolemia, unspecified Free T4 (Free Thyroxine) Today E78.00 - Pure hypercholesterolemia, unspecified Erythrocyte Sedimentation Rate Today E78.00 - Pure hypercholesterolemia, unspecified C Reactive Protein Today E78.00 - Pure hypercholesterolemia, unspecified AMB Urinalysis Automated Today R30.0 - Dysuria, Z13.9 - Encounter for screening, unspecified Complete Blood Count Auto Diff Today E78.00 - Pure hypercholesterolemia, unspecified Thyroid Stimulating Hormone Today E78.00 - Pure hypercholesterolemia, unspecified UA CC w/rflx Micro + Cult Today I10 - Essential (primary) hypertension, R30.0 - Dysuria Medications: Discontinued ramelteon Discontinued Reason: Doctor's Order 8 mg PO BEDTIME 30 days 30 tabs 3RF On Hold lemborexant (Dayvigo) Hold Comment: Doctor's Order 5 mg PO BEDTIME 30 tabs 3RF 30 days imipramine HCl Hold Comment: Doctor's Order 25 mg PO BEDTIME 30 tabs 6RF K58.9 - Irritable bowel syndrome, unspecified
--- OUTSIDE RECORDS SUMMARY | 2024-12-25 16:35 | XMS_ITS | Clinical Summary ---
Author Organization Patient Business [facility] Address [address] [place] [address] Care Team Providers Care Sql Ssrs Ssis Developer Name Role Phone Demi Lr MD Primary Care Provider [phone] Allergies No known active allergies Medications acetaminophen 500 mg/15 mL liquid Take by mouth. Active levmetamfetami ne (VAPOR INHALER NASL) Inhale by mouth. Active METOPROLOL SUCCINATE ORAL Take by mouth. Active multivitamin with iron (pediatric multivitamin-i seema) tablet chewable split tablet Take by mouth. Active ergocalciferol , vitamin D2, (VITAMIN D2 ORAL) Take by mouth. Active lipase/proteas e/amylase (CREON ORAL) Take by mouth. Active L.acid/L.casei /B.bif/B.derrell/F OS (PROBIOTIC BLEND ORAL) Take by mouth. Active sennosides (SENNA ORAL) Take by mouth. Active buPROPion XL (WELLBUTRIN XL) 150 mg 24 hr tablet Take 2 tablets (300 mg total) by mouth 1 (one) time each day in the morning. 1 Active SIMETHICONE-80 ORAL Take by mouth. Active clonazePAM (KlonoPIN) 1 mg tablet Take 1 tablet (1 mg total) by mouth. Active dicyclomine (BENTYL) 20 mg tablet Take 1 tablet (20 mg total) by mouth. Active ferrous sulfate 325 mg (65 mg elemental iron) tablet Take 1 tablet (325 mg total) by mouth 1 (one) time each day. 1 Active FLUoxetine (PROzac) 20 mg capsule Take 2 capsules (40 mg total) by mouth 1 (one) time each day in the morning. 1 Active imipramine (TOFRANIL) 25 mg tablet Take 1 tablet (25 mg total) by mouth. Active lisinopril-hyd roCHLOROthiazi de (PRINZIDE,ZEST ORETIC) 20-25 mg per tablet Take 1 tablet by mouth 1 (one) time each day. 1 Active meloxicam (MOBIC) 7.5 mg tablet Take 1 tablet (7.5 mg total) by mouth. 1 Active omeprazole (PriLOSEC) [address] capsule Take 1 capsule (20 mg total) by mouth 2 (two) times a day. 0 Active prazosin (MINIPRESS) 1 mg capsule Take 1 capsule (1 mg total) by mouth. Active simvastatin (ZOCOR) 10 mg tablet Take 1 tablet (10 mg total) by mouth at bedtime. Active ziprasidone (GEODON) 20 mg capsule TAKE ONE CAPSULE BY MOUTH AT BEDTIME WITH FOOD (MEAL OR SNACK) 1 Active tirzepatide, weight loss, (Zepbound) 10 mg/0.5 mL injection Inject 0.5 mL (10 mg total) under the skin every 7 (seven) days. 2 mL 5 Active tirzepatide, weight loss, (Zepbound) 15 mg/0.5 mL injection Inject 0.5 mL (15 mg total) under the skin every 7 (seven) days for 28 days. 2 mL 5 025 tirzepatide, weight loss, (Zepbound) 15 mg/0.5 mL injection Inject 0.5 mL (15 mg total) under the skin every 7 (seven) days for 28 days. 2 mL 5 025 Discontinued Active Problems Problem Noted Date Diagnosed Date Hypertension 02/13/2024 High cholesterol 07/17/2019 Overweight (BMI 25.0-29.9) 11/14/2018 Intestinal malabsorption following gastrectomy 0 11/13/2017 Encounters Date Type Department Care Team Description 12/09/2024 3:15 PM EDT Office Visit Bariatric Surgery - [address] [address] Chapis Ken PA Hx of obesity (Primary Dx); Bariatric surgery status 10/31/2024 Telephone Bariatric Surgery - [place] [address] [facility] [address] [place] [address] Chapis Ken PA 10/02/2024 Telephone Bariatric Surgery - [place] [address] [facility] [address] [place] [address] Chapis Ken PA from Last 3 Months Surgical History Surgery Date Site/Laterality Comments BARIATRIC SURGERY PROCEDURE: MO LAPS GSTRC RSTRICTIV PX LONGITUDINAL GASTRECTOMY OTHER SURGICAL HISTORY PROCEDURE: MO LAPS GASTRIC RESTRICTIVE PX REMOVE DEVICE & PORT BARIATRIC SURGERY PROCEDURE: MO LAPS GSTRC RSTRICTIV PX LONGITUDINAL GASTRECTOMY OTHER SURGICAL HISTORY PROCEDURE: MO GASTRIC RSTCV W/O BYP VERTICAL-BANDED GASTROPLY BREAST REDUCTION PROCEDURE: MO BREAST REDUCTION CARPAL TUNNEL RELEASE PROCEDURE: MO NEUROPLASTY &/TRANSPOS MEDIAN NRV CARPAL TUNNE SECTION PROCEDURE: MO DELIVERY ONLY HERNIA REPAIR 09/14/2021 PROCEDURE: MO REPAIR FIRST ABDOMINAL WALL HERNIA Medical History Medical History Date Comments Morbid obesity (CMS/HCC V24, CMS/HCC V28) DX:Morbid obesity (HCC) Hypertension DX:Hypertension Depression DX:Depression Anxiety [...] Mass Index 21.29 12/09/2024 3:03 PM EDT Plan of Treatment Upcoming Encounters Date Type Department Care Team (Late st Contact Info) Description 01/06/2025 10:30 AM EDT Consult Neurosurgery [place] - [place] [address] [facility] [address] [place] [address] Adal Mueller MD [address] [place] [address] 05/11/2025 3:15 PM EST Office Visit Bariatric Surgery - [place] [address] [facility] [address] [place] [address] Chapis Ken PA [address] [place] [address] Health Maintenance Due Date Last Done Comments Breast Cancer Screening 1965 Cervical Cancer Screening: Pap Smear 1985 Cholesterol Screening (Lipid Panel) 06/20/2020 Colorectal Cancer Screening: Colonoscopy 06/20/2020 HIV Screening 06/20/2020 Hepatitis C Screening 06/20/2020 Medicare Annual Wellness Visit 06/20/2020 Social Influencers of Health Screening 06/20/2020 Pneumococcal Vaccine: 50+ Years (2 of 2 - PCV) 05/29/2021 05/29/2020, 10/21/2015 Hypertension/CHF/CAD Annual BMP Blood Test 04/07/2022 Depression Screening 04/23/2024 COVID-19 Vaccine ( - 2024- season) 2024 03/25/2022, 04/09/2021, 07/31/2020 Influenza Vaccine (#1) 2024 , 01/25/2023, 03/25/2022, Additional history exists DTaP,Tdap,and Td Vaccines (2 - Td or Tdap) 08/31/2031 08/30/2021 RSV Immunization Adult Patients (1 - 1-dose 75+ series) 06/30/2039 Zoster Vaccines Completed 10/10/2020, 05/29/2020 HIB Vaccines Aged Out No longer eligi ble based on patient's age to complete this topic HPV Vaccines Aged Out No longer eligi ble based on patient's age to complete this topic Hepatitis A Vaccines Aged Out No long er eligible based on patient's age to complete this topic Hepatitis B Vaccines Aged Out No long er eligible [...] patient's age to complete this topic Meningococcal B Vaccine Aged Out No l onger eligible based on patient's age to complete this topic RSV Immunization Patients Under 20 months Aged Out No longer eligible based on patient's age to complete this topic Varicella Vaccines Aged Out No longer eligible based on patient's age to complete this topic Insurance [facility]IC[facility] Member Subscriber Plan / Payer (Ef fective 2013-Present) Name:KAREL BANKS Relation to Subscriber:Self Name:Karel Banks Payer ID:[id number] Group ID:[id number] Type:Not on file Address: [address] [facility] [place] [address] Care Teams Sql Ssrs Ssis Developer Relationship Specialty Start Date End Date Demi Lr MD [address] [place] [address] [address] [facility] [place] [address] PCP - General Internal Medicine 07/01/20
--- OUTSIDE RECORDS SUMMARY | 2024-12-25 16:35 | XMS_ITS | Patient Health Record ---
Author Organization [facility] Address [address] [place] [address] Support Name Relationship Address Phone Hannah Snell Guarantor Unknown [phone] Allergies No Known Allergies Reason For Referral [...] W/U Status Risk Notes Problem Mixed hyperlipidemia (857875456) Mixed hyperlipidemia (E78.2) Active confirmed Problem Moderate recurrent major depression (76835937) Major depressive disorder, recurrent, moderate (F33.1) Active confirmed Problem Generalized anxiety disorder (92354493) Generalized anxiety disorder (F41.1) Active confirmed Problem Post-traumatic stress disorder (27764459) Post-traumatic stress disorder, unspecified (F43.10) Active confirmed Problem Insomnia (500625785) Insomnia, unspecified (G47.00) Active confirmed Problem Essential hypertension (61020870) Essential (primary) hypertension (I10) Active confirmed Problem Body mass index 30.00 to 34.99 (799003174688147) Body mass index (BMI) 31.0-31.9, adult (Z68.31) Active confirmed Problem Body mass index 30.00 to 34.99 (613653563018694) Body mass index (BMI) 33.0-33.9, adult (Z68.33) Active confirmed Problem Body mass index 40+ - morbidly obese (576272911) Body mass index (BMI) 50-59.9 , adult (Z68.43) Active confirmed Problem Obese class II (631991574100158) Body mass index [BMI] 35.0-35.9, adult (Z68.35) Active confirmed Plan Of Treatment No Information Insurance Providers Payer Name Payer Address Payer Phone Subscriber Number Group Number Insured Name Patient Relationship to Insured Coverage Start Date Coverage End Date [facility] [address] [address] [place] [address] [phone] [id number] Hannah Snell Self - patient is the insured Medical (General) History Medical History History ICD Code anxiety/depression/PTSD, psychiatrist Dr Gregg Abbott, therapist hypertension hyperlipidemia osteoarthritis acid reflux Surgical History Surgery Date(Month/Year) gastric sleeve, 2017 x2 carpal tunnel, right hand breast reduction abdominoplasty Lap band 2010 and she was 260 pound and she dropped to 130 pounds
== END 2024-12-25 17:23 | disposition home or self-care (01) ==
LOC: HO.HMCH 15:57
PROVIDERS: PCP Internal Medicine; Visit Provider Internal Medicine
DX: I70.90 Unspecified atherosclerosis (principal); I10 Essential (primary) hypertension; E66.9 Obesity, unspecified; Z68.20 Body mass index [BMI] 20.0-20.9, adult; E78.00 Pure hypercholesterolemia, unspecified; Z90.3 Acquired absence of stomach [part of]; K21.9 Gastro-esophageal reflux disease without esophagitis; F09 Unspecified mental disorder due to known physiological condition; R30.0 Dysuria; R26.81 Unsteadiness on feet

== ENCOUNTER → 2024-12-25 15:57 | Outpatient (BNVA) | payer OTHER, SELFPAY | PROVIDERS: PCP Internal Medicine; Visit Provider Internal Medicine | DX: I10 Essential (primary) hypertension (principal); I65.23 Occlusion and stenosis of bilateral carotid arteries; E78.00 Pure hypercholesterolemia, unspecified; K21.9 Gastro-esophageal reflux disease without esophagitis; F09 Unspecified mental disorder due to known physiological condition; R30.0 Dysuria; R26.81 Unsteadiness on feet; K58.9 Irritable bowel syndrome, unspecified; Z90.3 Acquired absence of stomach [part of] | CPT/HCPCS: 96127; 99212 ==

== ENCOUNTER → 2025-01-15 15:18 | Outpatient (BNV) | payer OTHER, SELFPAY | PROVIDERS: PCP Internal Medicine; Visit Provider Internal Medicine | DX: R77.8 Other specified abnormalities of plasma proteins (principal) | CPT/HCPCS: 99204; G2211 ==

== ENCOUNTER 2025-01-17 09:56 | Outpatient (REF) | payer OTHER, SELFPAY ==
--- OUTSIDE RECORDS SUMMARY | 2025-01-17 09:58 | XMS_ITS | Patient Health Record ---
Author Organization [facility] Address [address] [place] [address] Support Name Relationship Address Phone Hannah Snell Guarantor Unknown [phone] Allergies No Known Allergies Reason For Referral [...] W/U Status Risk Notes Problem Mixed hyperlipidemia (283146211) Mixed hyperlipidemia (E78.2) Active confirmed Problem Moderate recurrent major depression (14178330) Major depressive disorder, recurrent, moderate (F33.1) Active confirmed Problem Generalized anxiety disorder (62082207) Generalized anxiety disorder (F41.1) Active confirmed Problem Post-traumatic stress disorder (35032563) Post-traumatic stress disorder, unspecified (F43.10) Active confirmed Problem Insomnia (242687869) Insomnia, unspecified (G47.00) Active confirmed Problem Essential hypertension (20795095) Essential (primary) hypertension (I10) Active confirmed Problem Body mass index 30.00 to 34.99 (832644291441114) Body mass index (BMI) 31.0-31.9, adult (Z68.31) Active confirmed Problem Body mass index 30.00 to 34.99 (912516978725073) Body mass index (BMI) 33.0-33.9, adult (Z68.33) Active confirmed Problem Body mass index 40+ - morbidly obese (899309767) Body mass index (BMI) 50-59.9 , adult (Z68.43) Active confirmed Problem Obese class II (452297182569787) Body mass index [BMI] 35.0-35.9, adult (Z68.35) Active confirmed Plan Of Treatment No Information Insurance Providers Payer Name Payer Address Payer Phone Subscriber Number Group Number Insured Name Patient Relationship to Insured Coverage Start Date Coverage End Date [facility] [address] [address] [place] [address] [phone] [id number] Hannah Snell Self - patient is the insured Medical (General) History Medical History History ICD Code anxiety/depression/PTSD, psychiatrist Dr Gregg Abbott, therapist hypertension hyperlipidemia osteoarthritis acid reflux Surgical History Surgery Date(Month/Year) gastric sleeve, 2017 x2 carpal tunnel, right hand breast reduction abdominoplasty Lap band 2010 and she was 260 pound and she dropped to 130 pounds
--- OUTSIDE RECORDS SUMMARY | 2025-01-17 09:58 | XMS_ITS | Clinical Summary ---
Author Organization [facility] Address [address] [place] [address] Care Team Providers Care Surgeon Chief Name Role Phone Demi Lr MD Primary Care Provider [phone] Allergies No known active allergies Medications acetaminophen 500 mg/15 mL liquid Take by mouth. Active levmetamfetami ne (VAPOR INHALER NASL) Inhale by mouth. Active METOPROLOL SUCCINATE ORAL Take by mouth. Active multivitamin with iron (pediatric multivitamin-i seema) tablet chewable split tablet Take by mouth. Active ergocalciferol , vitamin D2, (VITAMIN D2 ORAL) Take by mouth. Active L.acid/L.casei /B.bif/B.derrell/F OS (PROBIOTIC BLEND ORAL) Take by mouth. Active buPROPion XL [...] tablet (20 mg total) by mouth. Active FLUoxetine (PROzac) 20 mg capsule Take 2 capsules (40 mg total) by mouth 1 (one) time each day in the morning. 1 Active omeprazole (PriLOSEC) [address] [...] WITH FOOD (MEAL OR SNACK) 1 Active Vitamin C 500 mg tablet Take 1 tablet (500 mg total) by mouth 1 (one) time each day. 5 Active cholecalcifero l (VITAMIN D-3) 125 mcg (5,000 unit) capsule Take 1 capsule (5,000 Units total) by mouth 1 (one) time each day. 5 Active folic acid (FOLVITE) 1 mg tablet Take 1 tablet (1,000 mcg total) by mouth 1 (one) time each day. 5 Active lisinopriL (PRINIVIL,ZEST RIL) 20 mg tablet Take 1 tablet (20 mg total) by mouth 1 (one) time each day. 5 Active magnesium oxide (MAG-OX) 400 mg (241.3 elemental magnesium) tablet TAKE ONE TABLET BY MOUTH DAILY AT BEDTIME, MAY HOLD FOR LOOSE STOOLS 5 Active riboflavin (VITAMIN B2) 400 mg tablet Take 1 tablet (400 mg total) by mouth 1 (one) time each day. 5 Active senna 8.6 mg tablet Take 2 tablets (17.2 mg total) by mouth. at bedtime 5 Active thiamine (VITAMIN B-1) 50 mg tablet Take 1 tablet (50 mg total) by mouth 1 (one) time each day. 5 Active zolpidem (AMBIEN) 5 mg tablet Take 1 tablet (5 mg total) by mouth at bedtime as needed. at bedtime for sleep Max Daily Amount: 5 mg 5 Active tirzepatide, weight loss, (Zepbound) 12.5 mg/0.5 mL injection Inject 0.5 mL (12.5 mg total) under the skin every 7 (seven) days. 2 mL 5 025 Active lipase/proteas e/amylase (CREON ORAL) Take by mouth. 025 Discontinued sennosides (SENNA ORAL) Take by mouth. 025 Discontinued ferrous sulfate 325 mg (65 mg elemental iron) tablet Take 1 tablet (325 mg total) by mouth 1 (one) time each day. 1 025 Discontinued imipramine (TOFRANIL) 25 mg tablet Take 1 tablet (25 mg total) by mouth. 025 Discontinued lisinopril-hyd roCHLOROthiazi de (PRINZIDE,ZEST ORETIC) 20-25 mg per tablet Take 1 tablet by mouth 1 (one) time each day. 1 025 Discontinued meloxicam (MOBIC) 7.5 mg tablet Take 1 tablet (7.5 mg total) by mouth. 1 025 Discontinued tirzepatide, weight loss, (Zepbound) 10 mg/0.5 mL injection Inject 0.5 mL (10 mg total) under the skin every 7 (seven) days. 2 mL 5 025 Discontinued cyclobenzaprin e (FLEXERIL) 10 mg tablet Take 1 tablet (10 mg total) by mouth. 5 025 Discontinued Dayvigo 5 mg tablet Take 1 tablet by mouth. at bedtime 5 025 Discontinued metoclopramide (REGLAN) 5 mg tablet Take 1 tablet (5 mg total) by mouth. 5 025 Discontinued ramelteon (ROZEREM) 8 mg tablet Take 1 tablet (8 mg total) by mouth. at bedtime 5 025 Discontinued Active Problems Problem Noted Date Diagnosed Date Hypertension 02/13/2024 High cholesterol 07/17/2019 Overweight (BMI 25.0-29.9) 11/14/2018 Intestinal malabsorption following gastrectomy 0 11/13/2017 Encounters Date Type Department Care Team Description 01/15/2025 Telephone Bariatric Surgery - [address] [place] [address] Chapis Ken PA 01/06/2025 10:30 AM EDT Consult Neurosurgery [place] [address] [place] [address] Adal Mueller MD Occlusion and stenosis of bilateral carotid arteries 12/09/2024 3:15 PM EDT Office Visit Bariatric Surgery - [place] [address] [facility] [address] [place] [address] Chapis Ken PA Hx of obesity (Primary Dx); Bariatric surgery status 10/31/2024 Telephone Bariatric Surgery - [place] [address] [facility] [address] [place] [address] Chapis Ken PA from Last 3 Months Surgical History Surgery Date Site/Laterality Comments BARIATRIC SURGERY PROCEDURE: CO LAPS GSTRC RSTRICTIV PX LONGITUDINAL GASTRECTOMY OTHER SURGICAL HISTORY PROCEDURE: CO LAPS GASTRIC RESTRICTIVE PX REMOVE DEVICE & PORT BARIATRIC SURGERY PROCEDURE: CO LAPS GSTRC RSTRICTIV PX LONGITUDINAL GASTRECTOMY OTHER SURGICAL HISTORY PROCEDURE: CO GASTRIC RSTCV W/O BYP VERTICAL-BANDED GASTROPLY BREAST REDUCTION PROCEDURE: CO BREAST REDUCTION CARPAL TUNNEL RELEASE PROCEDURE: CO NEUROPLASTY &/TRANSPOS MEDIAN NRV CARPAL TUNNE SECTION PROCEDURE: CO DELIVERY ONLY HERNIA REPAIR 09/14/2021 PROCEDURE: CO REPAIR FIRST ABDOMINAL WALL HERNIA Medical History [...] - Inhaled Oxygen Concentration - - Weight 57.2 kg (126 lb) 01/06/2025 10:37 AM EDT Height 157.5 cm (5' 2 ) 01/06/2025 10:37 AM EDT Body Mass Index 23.05 01/06/2025 10:37 AM EDT Plan of Treatment Upcoming Encounters Date Type Department Care Team (Late st Contact Info) Description 01/19/2025 6:00 PM EDT Appointment [facility] MRI [address] [place] [address] 01/19/2025 6:05 PM EDT Appointment [facility] MRI [address] [place] [address] 02/02/2025 3:00 PM EDT Appointment [facility] CT Scan [address] [place] [address] 05/11/2025 3:15 PM EST Office Visit Bariatric Surgery - [place] [address] [facility] [address] [place] [phone] Chapis Ken PA [address] [place] [phone] Health Maintenance Due Date Last Done [...] 04/07/2022 Depression Screening 04/23/2024 COVID-19 Vaccine ( season) 2024 03/25/2022, 04/09/2021, 07/31/2020 Influenza Vaccine [...] patient's age to complete this topic Insurance [employer] Member Subscriber Plan / Payer (Ef fective 2013-Present) Name:KAREL BANKS Relation to Subscriber:Self Name:Karel Banks Payer ID:[id number] Group ID:[id number] Type:Not on file Address: [address] [place] [address] Care Teams Surgeon Chief Relationship Specialty Start Date End Date Demi Lr MD [address] [place] [address] [address] [facility] [place] [address] PCP - General Internal Medicine 07/01/20
--- OUTSIDE RECORDS SUMMARY | 2025-01-17 09:58 | XMS_ITS | Encounter Summary ---
Author Organization [facility] Address [address] [place] [address] Care Team Providers Care Flat Folding Machine Operator Name Role Phone Demi Lr MD Primary Care Provider [phone] Reason for Visit * Reason Onset Date Comments Med Refill 01/15/2025 Zepbound Encounter Details Date Type Department Care Team ([facility] Contact Info) Description 01/15/2025 Telephone Bariatric Surgery - [address] [place] [address] Chapis Ken PA [address] [place] [phone] Social History Tobacco Use Types Packs/Day Years [...] as of this encounter Progress Notes * Salud Leyva - 01/15/2025 11:15 AM EDT Patient did well on Zepbound 10 mgs and would like a refill. If appropriate, please send script for Zepbound 10 mgs to their pharmacy. The patient does have a follow up in 05/11/2025 documented in this encounter Plan of Treatment Upcoming Encounters Date Type Department Care Team (Late st Contact Info) Description 01/19/2025 6:00 PM EDT Appointment [facility] MRI [address] [place] [phone] 01/19/2025 6:05 PM EDT Appointment [facility] MRI [address] [place] [phone] 02/02/2025 3:00 PM EDT Appointment [facility] CT Scan [address] [place] [phone] 05/11/2025 3:15 PM EST Office Visit Bariatric Surgery - [place] [address] [facility] [address] [place] [phone] Chapis Ken PA [address] [place] [phone] documented as of this encounter Visit Diagnoses Not on filedocumented in this encounter Care Teams Flat Folding Machine Operator Relationship Specialty Start Date End Date Demi Lr MD [address] [place] [address] [address] [facility] [place] [address] PCP - General Internal Medicine 07/01/20 documented as of this encounter
[2025-01-17 10:27] LABS: MANUAL DIFF FLAG NO
[2025-01-17 11:37] LABS: Hematocrit 33.4 % (37.0-47.0); Hemoglobin 11.1 g/dl (12.0-16.0); Imm Gran Abs Auto 0.01 X10*3/uL (0.00-0.03); Imm Gran Pct Auto 0.2 % (0.0-0.4); Lymphocytes Absolute Auto 1.4 X10*3/uL (1.2-4.9); Mean Corpuscular HGB Conc 33.2 g/dl (31.0-35.0); Mean Corpuscular Hemoglobin 28.8 pg (27.0-33.0); Mean Corpuscular Volume 86.8 fL (80.0-98.0); NRBC Abs Auto 0.000 X10*3/uL (0.0-0.012); NRBC Pct Auto 0.0 /100WBC (0.0-0.2); Platelet Count 318 X10*3/uL (160-400); Red Blood Count 3.85 X10*6/uL (4.20-5.50); White Blood Count 4.5 X10*3/uL (4.8-10.8)
[2025-01-17 12:11] LABS: Alanine Aminotransferase 143 U/L (0-31); Albumin Level 4.2 g/dL (3.5-5.0); Alkaline Phosphatase 66 U/L (39-117); Anion Gap 10 (12-20); Aspartate Amino Transferase 102 U/L (5-31); Blood Urea Nitrogen 16 mg/dL (9-16); Calcium 9.3 mg/dL (8.4-10.2); Carbon Dioxide 29 mmol/L (22-29); Chloride 108 mmol/L (96-108); Cholesterol 166 mg/dL (<200); Estimated Glomerular Filt Rate 45; HDL Cholesterol 57 mg/dL (>40); Potassium 4.0 mmol/L (3.3-5.1); Sodium 143 mmol/L (135-145); Total Protein 6.2 g/dL (6.5-8.0); Triglycerides 122 mg/dL (<150)
[2025-01-17 12:15] LABS: Thyroid Stimulating Hormone 2.08 uIU/mL (0.32-4.0)
[2025-01-17 12:21] LABS: Free T4 (Free Thyroxine) 1.08 ng/dL (0.71-1.85)
[2025-01-19 04:29] LABS: HBS Num1 71.46 mIU/mL (0-7.99); HBc Num1 0.04 S/CO (0.00-0.79); HBsAGNum1 0.25 S/CO (0.00-0.99); Hepatitis A Antibody IgM 0.20 Index (0-0.79); Hepatitis B Surface Antigen Negative (Negative); ~HepC Num1 0.08 S/CO (0.00-0.79); ~Hepatitis A Antibody IgM Nonreactive (Nonreactive); ~Hepatitis B Surface Antibody REACTIVE (Nonreactive); ~Hepatitis C Antibody Nonreactive (Nonreactive)
== END 2025-01-17 09:57 | disposition home or self-care (01) ==
LOC: HO.LAB 09:56
PROVIDERS: Absent Provider Internal Medicine; PCP Internal Medicine; Visit Provider Internal Medicine
DX: R79.89 Other specified abnormal findings of blood chemistry (principal); E78.00 Pure hypercholesterolemia, unspecified
CPT/HCPCS: 36415; 80053; 80061; 80076; 81256; 82248; 82784; 84439; 84443; 85025; 85652; 86140; 86334; 86704; 86706; 86709; 86803; 87340

== ENCOUNTER 2025-02-04 13:49 | Outpatient (AMB) | payer OTHER, SELFPAY ==
--- OUTSIDE RECORDS SUMMARY | 2025-02-02 14:12 | XMS_ITS | Encounter Summary ---
Author Organization [facility] Address [address] [place] [address] Care Team Providers Care Sample Maker Hand Name Role Phone Demi Lr MD Primary Care Provider Reason for Referral * Imaging (Routine) - Authorized Specialty Diagnoses / Procedures Referred By Contac t Referred To Contact Radiology Diagnoses Occlusion and stenosis of bilateral carotid arteries Procedures CT Angio Head/Neck wo and/or w Contrast Adal Mueller MD Phone: tel: fax: [facility] CT Scan [address] [place] [address] Phone: tel: Referral ID Status Reason Start Date Expiration Date V isits Requested Visits Authorized [id number] Authorized 01/09/2025 04/22/2025 1 1 Reason for Visit * Imaging (Routine) - Authorized Specialty Diagnoses / Procedures Referred By Contac t Referred To Contact Radiology Diagnoses Occlusion and stenosis of bilateral carotid arteries Procedures CT Angio Head/Neck wo and/or w Contrast Adal Mueller MD Phone: tel: fax: [facility] CT Scan [address] [place] [address] Phone: tel: Referral ID Status Reason Start Date Expiration Date V isits Requested Visits Authorized [id number] Authorized 01/09/2025 04/22/2025 1 1 Encounter Details Date Type Department Care Team (Latest Contact Info) Description 02/02/2025 2:12 PM EDT - 02/02/2025 11:59 PM EDT Hospital Encounter [facility] CT Scan [address] [place] [address] Occlusion and stenosis of bilateral carotid arteries Discharge Disposition: Home or Self Care Social History Tobacco Use Types Packs/Day Years Used Date Smoking Tobacco: Never Smokeless Tobacco: Never Alcohol Use Standard Drinks/Week Comments No 0 (1 standard drink = 0.6 oz pur e alcohol) Comments Unknown Sex and Gender Information Value Date Recorded Sex Assigned at Female 01/17/2025 8:11 PM EDT Legal Sex Female 11:26 PM EST Gender Identity Not on file Sexual Orientation Not on file documented as of this encounter Medications at Time of Discharge acetaminophen 500 mg/15 mL liquid Take by mouth. buPROPion XL (WELLBUTRIN XL) 150 mg 24 hr tablet Take 2 tablets (300 mg total) by mouth 1 (one) time each day in the morning. 06/04/2020 cholecalciferol (VITAMIN D-3) 125 mcg (5,000 unit) capsule Take 1 capsule (5,000 Units total) by mouth 1 (one) time each day. 11/27/2024 clonazePAM (KlonoPIN) 1 mg tablet Take 1 tablet (1 mg total) by mouth. dicyclomine (BENTYL) 20 mg tablet Take 1 tablet (20 mg total) by mouth. ergocalciferol, vitamin D2, (VITAMIN D2 ORAL) Take by mouth. FLUoxetine (PROzac) 20 mg capsule Take 2 capsules (40 mg total) by mouth 1 (one) time each day in the morning. 06/13/2020 folic acid (FOLVITE) 1 mg tablet Take 1 tablet (1,000 mcg total) by mouth 1 (one) time each day. 12/17/2024 L.acid/L.casei/B .bif/B.derrell/FOS (PROBIOTIC BLEND ORAL) Take by mouth. levmetamfetamine (VAPOR INHALER NASL) Inhale by mouth. lisinopriL (PRINIVIL,ZESTRI L) 20 mg tablet Take 1 tablet (20 mg total) by mouth 1 (one) time each day. 12/17/2024 magnesium oxide (MAG-OX) 400 mg (241.3 elemental magnesium) tablet TAKE ONE TABLET BY MOUTH DAILY AT BEDTIME, MAY HOLD FOR LOOSE STOOLS 12/12/2024 METOPROLOL SUCCINATE ORAL Take by mouth. multivitamin with iron (pediatric multivitamin-iro n) tablet chewable split tablet Take by mouth. omeprazole (PriLOSEC) [address] capsule Take 1 capsule (20 mg total) by mouth 2 (two) times a day. 04/21/2020 prazosin (MINIPRESS) 1 mg capsule Take 1 capsule (1 mg total) by mouth. riboflavin (VITAMIN B2) 400 mg tablet Take 1 tablet (400 mg total) by mouth 1 (one) time each day. 12/12/2024 senna 8.6 mg tablet Take 2 tablets (17.2 mg total) by mouth. at bedtime 10/10/2024 SIMETHICONE-80 ORAL Take by mouth. simvastatin (ZOCOR) 10 mg tablet Take 1 tablet (10 mg total) by mouth at bedtime. thiamine (VITAMIN B-1) 50 mg tablet Take 1 tablet (50 mg total) by mouth 1 (one) time each day. 12/26/2024 tirzepatide, weight loss, (Zepbound) 12.5 mg/0.5 mL injection Inject 0.5 mL (12.5 mg total) under the skin every 7 (seven) days. 2 mL 01/16/2025 02/15/2025 Vitamin C 500 mg tablet Take 1 tablet (500 mg total) by mouth 1 (one) time each day. 10/18/2024 ziprasidone (GEODON) 20 mg capsule TAKE ONE CAPSULE BY MOUTH AT BEDTIME WITH FOOD (MEAL OR SNACK) 2020 zolpidem (AMBIEN) 5 mg tablet Take 1 tablet (5 mg total) by mouth at bedtime as needed. at bedtime for sleep Max Daily Amount: 5 mg 12/21/2024 documented as of this encounter Discharge Disposition Disposition Code Departure Means Destination Home or Self Care documented in this encounter Plan of Treatment Upcoming Encounters Date Type Department Care Team (Late st Contact Info) Description 05/11/2025 3:15 PM EST Office Visit Bariatric Surgery - [address] [place] [phone] Chapis Ken PA [address] [place] [address] Pending Results Name Type Priority Associated Diagnoses Date /Time CT Angio Head/Neck wo and/or w Contrast Imaging Routine Occlusion and stenosis of bilateral carotid arteries 02/02/2025 2:53 PM EDT Scheduled Orders Name Type Priority Associated Diagnoses Orde r Schedule CT Angio Head/Neck wo and/or w Contrast Imaging Routine Occlusion and stenosis of bilateral carotid arteries Once for 1 Occurrences starting 02/02/2025 until 02/02/2025 documented as of this encounter Visit Diagnoses Diagnosis Occlusion and stenosis of bilateral carotid arteries documented in this encounter Administered Medications Inactive Administered Medications - up to 3 most recent administrations Medication Order MAR Action Action Date Dose Rate Site iopamidoL (ISOVUE-370) 370 mg iodine /mL (76 %) injection 90 mL 90 mL, intravenous, Once in imaging, Starting on Sun02/02/25 at 1429, For 1 dose Given 02/02/2025 2:31 PM EDT 90 mL sodium chloride 0.9 % flush 10 mL 10 mL, intravenous, Once, On Sun02/02/25 at 1445, For 1 dose Given 02/02/2025 2:31 PM EDT 10 mL documented in this encounter Care Teams Sample Maker Hand Relationship Specialty Start Date End Date Po, MD Demi [address] [place] [address] [address] [facility] [place] [address] PCP - General Internal Medicine 07/01/20 documented as of this encounter
--- NOTE | 2025-02-04 14:04 | MHC.PC.OV ---
Vital Signs 02/04/25 14:06 Height 5 ft 2 in Weight 106 lb 6 oz BMI 19.5 BP 104/60 Blood Pressure Location Lt brachial Position Sitting Pulse 82 Pulse Source Pulse Oximeter Temp 97.1 F Temp Source Temporal Artery Scan Pulse Oximetry (%) 100 Oxygen Delivery Method Room Air Intake Visit Reasons: gait instability, HTN, ILENE Allergies No Known Allergies (No Known Allergies*) Allergy (Verified 02/04/25 14:11) Tobacco use date assessed: 02/04/25 Dental Screening Dental Screen Date: 02/04/25 Did you have a dental visit in the last 12 months?: Yes Did you have a dental problem in the last 6 months where you did not have access to dental care?: No Was dental information given to patient?: Patient has dentist HPI gait instability, HTN, ILENE HPI Details MRIand CT done in [facility] - results pending [facility] Medical History Dysphagia RUQ abdominal pain Anemia Vision changes Overweight (BMI 25.0-29.9) Gallbladder contraction Thrush, oral Pre-op evaluation Fatigue Family history of dementia Dizziness Chest pain Palpitations Forgetfulness SOB (shortness of breath) on exertion Rectal pain Right renal stone COVID-19 Nausea and vomiting Diverticulitis Onychomycosis Annual physical exam 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 Rectal spasm Abdominal cramping Diarrhea Esophageal dysmotility Overweight Abscess of finger of left hand Constipation History of colon polyps (~2015) Incarcerated hiatal hernia Achalasia Family history of polyps in the colon Nausea Snoring Hypersomnolence Intestinal malabsorption following gastrectomy Shoulder pain, right Neck pain Polyarthralgia Plantar fasciitis of left foot Impaired glucose tolerance Cervical radiculopathy Hypercholesterolemia Obesity (BMI 30-39.9) Insomnia Vitamin D deficiency PTSD (post-traumatic stress disorder) Polymyalgia HTN (hypertension) GERD (gastroesophageal reflux disease) Surgical History History of sleeve gastrectomy (~2016) Hx of cataract extraction History of repair of hiatal hernia History of History of laparoscopic adjustable gastric banding (~2010) History of bilateral breast reduction surgery (~2011) History of esophagogastroduodenoscopy (EGD) (~2020) Hx of abdominoplasty S/P laparoscopic sleeve gastrectomy (~2016) History of excision of mass (~2016) History of colonoscopy (~2015) Status post panniculectomy (~2013) History of carpal tunnel release (~2001) History of neck surgery History of tubal ligation (~2000) Family History Father Diabetes Mother High blood pressure High cholesterol Dementia Daughter Healthy female Son No problems noted. Son High blood pressure High cholesterol Sister Cervical cancer Maternal Grandmother Cervical cancer Other Mental health disorder Social History Household Members: Significant Other and Other Household Members Other:: adult children Housing: House Are you a primary healthcare market consultant to a significant other at home: No Do you presently have visiting nurse or other home services: No Alcohol intake: never Patient Tobacco Use Status: Former Tobacco user Tobacco use type: Cigarette Years Smoked: quit 1989 e-Cigarette/Vaping Use: Never Used Second Hand Smoke Exposure: No service: No Current occupational status: disabled Cognitive needs: Yes (cane) Hearing needs: No Vision needs: Yes (glasses) Female Reproductive History Menstrual Age of Menarche: 14 Questionnaire PHQ-9 Over the last 2 weeks, how often have you been bothered by any of the following problems? 1. Little interest or pleasure in doing things: more than half the days 2. Feeling down, depressed, or hopeless: more than half the days 3. Trouble falling or staying asleep, or sleeping too much: several days 4. Feeling tired or having little energy: nearly every day 5. Poor appetite or overeating: several days 6. Feeling bad about yourself - or that you are a failure or have let yourself or your family down: more than half the days 7. Trouble concentrating on things, such as reading the newspaper or watching television: nearly every day 8. Moving or speaking so slowly that other people could have noticed. Or the opposite - being so fidgety or restless that you have been moving around a lot more than usual: not at all 9. Thoughts that you would be better off or of hurting yourself in some way: not at all Total score: 14 Depression Screening Interpretation: Positive Depression Screening Done: Yes Source: Developed by Drs. Redd Chu, Vicki Tito Awan and colleagues, with an educational marily from [employer]. Thrive Questionnaire Date Thrive assessed: 12/24/24 I am a: Patient What is your living situation today?: I have a steady place to live Within the past 12 months, did the food you bought not last and you didn't have the money to get more?: Never true Within the past 12 months, did you worry whether your food would run out before you got money to buy more?: Never true Do you have trouble paying for medicines?: No Do you have trouble getting transportation to medical appointments?: No Do you have trouble paying your heating and electricity bill?: Yes Do you have trouble taking care of your child, family member or friend?: No Do you have trouble with day-to-day activities such as bathing, preparing meals, shopping, managing finances, etc.?: Yes Are you currently unemployed and looking for a job?: No Are you interested in more education?: No Please select the resources that you would like help with: Utilities Currently or been in a relationship where the following occur: No concerns reported THRIVE Score: 1 AUDIT C Alcohol Use Questionnaire (AUDIT-C) 1. How often do you have a drink containing alcohol?: Never 3. How often do you have six or more drinks on one occasion?: Never Total Score: 0 ILENE-7 AMB Questionnaire ILENE-7 Date ILENE - 7 assessed: 05/23/24 Feeling nervous, anxious, or on edge: 1 = Several days Not being able to stop or control worryin = Nearly every day Worrying too much about different things: 3 = Nearly every day Trouble relaxin = Nearly every day Being so restless that it is hard to sit still: 0 = Not at all Becoming easily annoyed or irritable: 2 = More than half the days Feeling afraid as if something awful might happen: 3 = Nearly every day Total ILENE-7 score (0-4 normal; 5-9 mild; 10-14 moderate; 15-21 severe): 15 Source: Developed by Drs. Redd Chu, Tito Dockery and colleagues, with an educational marily from [employer]. Physical exam (Primary Care) Vital Signs: Last Vital Signs Temp 97.1 F 02/04/25 14:06 Pulse 82 10/15/25 14:06 BP 104/60 02/04/25 14:06 Pulse Ox 100 02/04/25 14:06 Oxygen Delivery Method Room Air 02/04/25 14:06 BMI result Body Mass Index 19.5 Tobacco/Smoking Status: Tobacco use Status Tobacco use date assessed 02/04/25 02/04/25 14:12 Patient Tobacco Use Status Former Tobacco user 02/04/25 14:04 Tobacco use type Cigarette 02/04/25 14:04 e-Cigarette/Vaping Use Never Used 02/04/25 14:04 PHQ-9: PHQ-9 Score PHQ-9: Total score 10 02/04/25 14:12 Depression Screening Interpretation: Positive Thrive Assessment: Date of Thrive Assessment Date Thrive assessed 12/24/24 02/04/25 14:04 Currently or been in a relationship where the following occur: No concerns reported Const General: alert; No acute distress Eyes Conjunctivae: conjunctivae normal Resp Auscultation: clear to auscultation bilaterally Cardio Rate: regular rate Rhythm: regular rhythm GI Inspection: Yes normal to inspection Extrem General: Yes normal to inspection and No edema Coding Level of Care Code Est Pt Level 4 (94574) Complex EM visit Add On G2211 Diagnoses Essential hypertension I10 Hypertension type: essential hypertension Atherosclerosis of arteries I70.90 Hypercholesterolemia E78.00 Obesity (BMI 30-39.9) E66.9 History of sleeve gastrectomy Z90.3 Gastroesophageal reflux disease without esophagitis K21.9 Esophagitis presence: without esophagitis Assessment & Plan Assessment & Plan (1) HTN (hypertension): Code(s): I10 - Essential (primary) hypertension Category: Medical Qualifiers: Hypertension type: essential hypertension Qualified Code(s): I10 - Essential (primary) hypertension Plan: Continue with blood pressure medication. Decrease salt intake and exercise patient is on lisinopril 20 mg once a day metoprolol 25 mg once a day (2) Atherosclerosis of arteries: Code(s): I70.90 - Unspecified atherosclerosis Category: Medical Plan: Control the cholesterol, weight, blood pressure, patient is advised to start on aspirin 81 mg once a day (3) Hypercholesterolemia: Code(s): E78.00 - Pure hypercholesterolemia, unspecified Category: Medical Plan: Avoid fried foods, chicken skin, eggs, butter margarine, pastries and meat. Be it pork or beef they have a lot of cholesterol LDL goal of less than 70 and triglyceride of less than 150 on simvastatin 10 mg December 2024 done (4) Obesity (BMI 30-39.9): Comment: (Hx lap-band placed in 2010 & removed 2015 - s/p LSG 2016 Dr. Rojo) Code(s): E66.9 - Obesity, unspecified Category: Medical Plan: Diet and exercise (5) History of sleeve gastrectomy: Onset Date: ~2016 Comment: (laparoscopic gastric sleeve surgery - Dr. Rojo - 12/2016) Code(s): Z90.3 - Acquired absence of stomach [part of] Category: Surgical Plan: Continue to follow-up with bariatric (6) GERD (gastroesophageal reflux disease): Code(s): K21.9 - Gastro-esophageal reflux disease without esophagitis Category: Medical Qualifiers: Esophagitis presence: without esophagitis Qualified Code(s): K21.9 - Gastro-esophageal reflux disease without esophagitis Plan: Avoid the foods that causes that usually spicy foods, tomato products, juices, coffee, soda and foods that your sensitive to. After eating do not lie down, allow 3-4 hours before in lie down. And keep the head of bed above 30 degrees to avoid the acid from going up. Plan History of Present Illness The patient is a 59-year-old female presenting with hypertension, coronary artery disease, and hyperlipidemia. Hypertension is currently managed with lisinopril 20 mg once daily and metoprolol 25 mg once daily, effective in controlling her blood pressure. For coronary artery disease management, she is advised to commence aspirin 81 mg once daily to reduce cardiovascular risks. Hyperlipidemia is being addressed with simvastatin 10 mg to meet the LDL goal of less than 70 mg/dL and triglycerides under 150 mg/dL. The patient is encouraged to continue diet and exercise modifications and pursue weight management strategies. Health Maintenance - Daily aspirin 81 mg for cardiovascular risk reduction - Simvastatin 10 mg for lipid management targeting LDL <70 mg/dL - Diet and exercise encouraged for weight management efforts Social History Review of Systems - Cardiovascular: Denies chest pain or palpitations. - Endocrine: Reports medication compliance for hyperlipidemia. - Musculoskeletal: Denies any activity limitations impacting exercise. Physical Exam Results Plan Patient was informed and verbally consented to the use of an ambient scribe for clinic note documentation during this visit. 1. Essential Hypertension The patient has been effectively managing her hypertension with lisinopril 20 mg and metoprolol 25 mg once daily. Follow-up appointments will monitor ongoing effectiveness and any potential adverse effects. 2. Coronary Artery Disease The introduction of aspirin 81 mg daily is recommended to prevent further cardiovascular events in light of her coronary artery disease, with careful observation for any bleeding risks. 3. Hyperlipidemia Patient is maintained on simvastatin 10 mg daily to reach lipid goals, supported by lifestyle modifications including diet and exercise. Lipid profiles will be monitored regularly to assess treatment efficacy. Discussion Notes During the consultation, we discussed the current management strategies for her essential hypertension, hyperlipidemia, and coronary artery disease. The addition of aspirin therapy was considered for its cardiovascular protective benefits, with attention paid to the risk of gastrointestinal bleeding. Patients were advised on the importance of continuous adherence to the prescribed medication regimen and benefits of dietary and lifestyle modifications to augment pharmacotherapy. Follow-up appointments and regular monitoring of her condition were emphasized to track therapeutic progress and adjust treatment plans if necessary. Patient Instructions - Keep taking lisinopril 20 mg and metoprolol 25 mg daily for blood pressure. - Start taking aspirin 81 mg daily as advised for heart health. - Continue simvastatin 10 mg daily for cholesterol. - Stick with a healthy diet and regular exercise to help manage weight and cholesterol. - Come back for regular check-ups. Orders: Orders Lipid Panel 3 Months E78.00 - Pure hypercholesterolemia, unspecified Comprehensive Met. Panel 3 Months I70.90 - Unspecified atherosclerosis Medications: Changed From simvastatin 10 mg PO BEDTIME 90 tabs 2RF To simvastatin 20 mg PO BEDTIME 90 tabs 2RF
[2025-02-04 14:06] VITALS: BP 104/60; PULSE 82; TEMP 36.2; O2SAT 100; BMI 19.5
--- OUTSIDE RECORDS SUMMARY | 2025-02-04 17:34 | XMS_ITS | Clinical Summary ---
Author Organization [facility] Address [address] [place] [address] Care Team Providers Care Bulk Receiver Name Role Phone Demi Lr MD Primary Care Provider [phone] Allergies No known active allergies Medications acetaminophen [...] Encounters Date Type Department Care Team Description 02/02/2025 2:12 PM EDT - 02/02/2025 11:59 PM EDT Hospital Encounter [facility] CT Scan [address] [place] [address] Occlusion and stenosis of bilateral carotid arteries Discharge Disposition: Home or Self Care 01/19/2025 5:58 PM EDT - 01/19/2025 11:59 PM EDT Hospital Encounter [facility] MRI [address] [place] [address] Occlusion and stenosis of bilateral carotid arteries Discharge Disposition: Home or Self Care 01/19/2025 5:58 PM EDT - 01/19/2025 11:59 PM EDT Hospital Encounter [facility] MRI [address] [place] [address] Occlusion and stenosis of bilateral carotid arteries Discharge Disposition: Home or Self Care 01/15/2025 Telephone Bariatric Surgery [facility] [address] [facility] [address] [place] [address] Chapis Ken PA 01/06/2025 10:30 AM EDT Consult Neurosurgery [facility] [address] [facility] [address] [place] [address] Adal Mueller MD Occlusion and stenosis of bilateral carotid arteries 12/09/2024 3:15 PM EDT Office Visit Bariatric Surgery [facility] [address] [facility] [address] [place] [address] Chapis Ken PA Hx of obesity (Primary Dx); Bariatric surgery status from Last 3 Months Surgical History Surgery Date Site/Laterality Comments BARIATRIC SURGERY PROCEDURE: [facility] LAPS GSTRC RSTRICTIV PX LONGITUDINAL GASTRECTOMY OTHER SURGICAL HISTORY PROCEDURE: [facility] LAPS GASTRIC RESTRICTIVE PX REMOVE DEVICE & PORT BARIATRIC SURGERY PROCEDURE: [facility] LAPS GSTRC RSTRICTIV PX LONGITUDINAL GASTRECTOMY OTHER SURGICAL HISTORY PROCEDURE: [facility] GASTRIC RSTCV W/O BYP VERTICAL-BANDED GASTROPLY BREAST REDUCTION PROCEDURE: [facility] BREAST REDUCTION CARPAL TUNNEL RELEASE PROCEDURE: [facility] NEUROPLASTY &/TRANSPOS MEDIAN NRV CARPAL TUNNE SECTION PROCEDURE: [facility] DELIVERY ONLY HERNIA REPAIR 09/14/2021 PROCEDURE: [facility] REPAIR FIRST ABDOMINAL WALL HERNIA Medical History [...] PM EST Office Visit Bariatric Surgery - [address] [place] [address] Chapis Ken, [address] [address] Health Maintenance Due Date Last Done Comments Breast Cancer Screening 1965 Colorectal Cancer Screening: Colonoscopy 1964 Cervical Cancer Screening: Pap Smear 1985 Cholesterol Screening (Lipid Panel) 06/20/2020 HIV Screening 06/20/2020 Hepatitis C Screening 06/20/2020 Medicare Annual Wellness Visit 06/20/2020 Social Influencers of Health Screening 06/20/2020 Pneumococcal Vaccine: 50+ Years (2 of 2 - PCV) 05/29/2021 05/29/2020, 10/21/2015 Depression Screening 04/23/2024 COVID-19 Vaccine ( season) 2024 03/25/2022, 04/09/2021, 07/31/2020 Influenza Vaccine (#1) 2024 4, 01/25/2023, 03/25/2022, Additional history exists Hypertension/CHF/CAD Annual BMP Blood Test 02/02/2026 02/02/2025 DTaP,Tdap,and Td Vaccines (2 - Td or [...] on patient's age to complete this topic Procedures Procedure Name Priority Date/Time Associated Diagnosis Comments FOLATE Routine 02/02/2025 2:05 PM EDT Hx of obesity IRON AND TIBC Routine 02/02/2025 2:05 PM EDT Hx of obesity VITAMIN D 25 HYDROXY Routine 02/02/2025 2:05 PM EDT Hx of obesity VITAMIN B12 Routine 02/02/2025 2:05 PM EDT Hx of obesity COMPREHENSIVE METABOLIC PANEL STAT 02/02/2025 2:05 PM EDT Personal history of nutritional deficiency MR CERVICAL SPINE WO CONTRAST Routine 01/19/2025 7:14 PM EDT Occlusion and stenosis of bilateral carotid arteries MR BRAIN WO CONTRAST Routine 01/19/2025 6:55 PM EDT Occlusion and stenosis of bilateral carotid arteries from Last 3 Months Results * (ABNORMAL) Iron and TIBC (02/02/2025 2:05 PM EDT) Iron 54 40 - 150 mcg/dL LAB CHEMISTRY METHOD 02/02/2025 2:51 PM EDT [facility] TIBC 241(L) 250 - 450 mcg/dL LAB CHEMISTRY METHOD 02/02/2025 2:51 PM EDT [facility] Iron Saturation 22 15 - 50 % LAB CHEMISTRY METHOD 02/02/2025 2:51 PM EDT [facility] Blood Venous blood specimen / Unknown Venipuncture / Unknown 02/02/2025 2:05 PM EDT 02/02/2025 2:12 PM EDT Chapis JUDD LAB BLOOD ORDERABLES Final R esult [facility] [address] [place] [address], * (ABNORMAL) Vitamin D 25 hydroxy (02/02/2025 2:05 PM EDT) Vit D, 25-Hydroxy 110.4(H) 30.0 - 80.0 ng/mL LAB CHEMISTRY METHOD 02/02/2025 4:02 PM EDT [facility] Blood Venous blood specimen / Unknown Venipuncture / Unknown 02/02/2025 2:05 PM EDT 02/02/2025 2:12 PM EDT Chapis JUDD LAB BLOOD ORDERABLES Final R esult [facility] [address] [place] [address], [place] [phone] * (ABNORMAL) Folate (02/02/2025 2:05 PM EDT) [facility] Folate >20.0(H) 2.8 - 17.0 ng/ml LAB CHEMISTRY METHOD 02/02/2025 3:14 PM EDT [facility] Blood Venous blood specimen / Unknown Venipuncture / Unknown 02/02/2025 2:05 PM EDT 02/02/2025 2:12 PM EDT us Chapis JUDD LAB BLOOD ORDERABLES Final R esult Performing Organization Address City/[facility]/ZIP Co de Phone Number [facility] [address] [place] [address], [place] [phone] * (ABNORMAL) Vitamin B12 (02/02/2025 2:05 PM EDT) [facility] Vitamin B-12 1,273(H) 250 - 900 pcg/mL LAB CHEMISTRY METHOD 02/02/2025 3:14 PM EDT [facility] Blood Venous blood specimen / Unknown Venipuncture / Unknown 02/02/2025 2:05 PM EDT 02/02/2025 2:12 PM EDT us Chapis JUDD LAB BLOOD ORDERABLES Final R esult [facility] [address] [place] [address], [place] [phone] * (ABNORMAL) Comprehensive metabolic panel (02/02/2025 2:05 PM EDT) [facility] Sodium 141 133 - 145 mmol/L LAB CHEMISTRY METHOD 02/02/2025 2:51 PM EDT [facility] Potassium 3.9 3.5 - 5.5 mmol/L LAB CHEMISTRY METHOD 02/02/2025 2:51 PM [facility] Chloride 105 96 - 110 mmol/L LAB CHEMISTRY METHOD 02/02/2025 2:51 PM [facility] CO2 26 21 - 32 mmol/L LAB CHEMISTRY METHOD 02/02/2025 2:51 PM [facility] Anion Gap 10 3 - 11 LAB CHEMISTRY METHOD 02/02/2025 2:51 PM [facility] Glucose 83 70 - 100 mg/dL LAB CHEMISTRY METHOD 02/02/2025 2:51 PM [facility] BUN 11 5 - 25 mg/dL LAB CHEMISTRY METHOD 02/02/2025 2:51 PM [facility] Creatinine 1.26(H) 0.50 - 1.10 mg/dL LAB CHEMISTRY METHOD 02/02/2025 2:51 PM [facility] eGFR 49(L) >=60 mL/min/1. 73m2 LAB CHEMISTRY METHOD 02/02/2025 2:51 PM [facility] Comment:Calculation based on the Chronic Kidney Disease Epidemiology Collaboration (CKD-EPI) equation refit without adjustment for race. BUN/Creatinine Ratio 8.7 LAB CHEMISTRY METHOD 02/02/2025 2:51 PM [facility] Calcium 9.6 8.5 - 10.5 mg/dL LAB CHEMISTRY METHOD 02/02/2025 2:51 PM [facility] AST (SGOT) 52(H) 10 - 42 unit/L LAB CHEMISTRY METHOD 02/02/2025 2:51 PM [facility] ALT (SGPT) 99(H) 10 - 60 unit/L LAB CHEMISTRY METHOD 02/02/2025 2:51 PM [facility] Alkaline Phosphatase 72 42 - 121 unit/L LAB CHEMISTRY METHOD 02/02/2025 2:51 PM [facility] Total Protein 6.4 6.0 - 8.0 g/dL LAB CHEMISTRY METHOD 02/02/2025 2:51 PM EDT [facility] Albumin 3.9 3.2 - 5.0 g/dL LAB CHEMISTRY METHOD 02/02/2025 2:51 PM EDT [facility] Total Bilirubin 0.5 0.0 - 1.4 mg/dL LAB CHEMISTRY METHOD 02/02/2025 2:51 PM EDT [facility] Blood Venous blood specimen / Unknown Venipuncture / Unknown 02/02/2025 2:05 PM EDT 02/02/2025 2:12 PM EDT us Chap[facility] JUDD LAB BLOOD ORDERABLES Final R esult [facility] [address] [place] [address], [place] [phone] * MR Cervical Spine wo Contrast (01/19/2025 7:14 PM EDT) Anatomical Region Laterality Modality C-spine, Spine Magnetic Resonan ce 01/21/2025 2:50 PM EDT Impressions 01/21/2025 2:52 PM EDT Degenerative disc, facet, and endplate changes throughout the cervical spine with without significant foraminal or spinal canal stenosis. No mass effect upon the cord or cord signal abnormality. -------- FINAL REPORT -------- Dictated By: MINDA SCHULER Dictated Date: 01/21/2025 14:50 ET Assigned Physician: MINDA SCHULER Reviewed and Electronically Signed By: MINDA SCHULER Signed Date: 01/21/2025 14:52 ET Workstation ID: [id number] Transcribed By: Self Edit Transcribed Date: 01/21/2025 14:50 ET Narrative 01/21/2025 2:52 PM EDT PROCEDURE: Cervical spine MRI INDICATION: Myelopathy, pain TECHNIQUE: Multiplanar, multisequence MRI of the Cervical spine Without contrast. COMPARISON: No priors available. FINDINGS: Mild anterolisthesis at C7-T1 related to degenerative facet arthropathy. Similar findings are seen at T1-2 and T2-3. No fracture or suspicious marrow replacing lesion. Multilevel degenerative loss of normal disc height and signal with associated endplate spurring, most marked at C5-6 and C6-7. Degenerative cervical facet arthritis most pronounced at C7-T1 bilaterally. Cervical cord is normal in signal and morphology. No epidural collection or mass is seen within the spinal canal. Foramen magnum is normal. Paraspinal muscles are normal. Findings by level: C2-C3: No focal disc protrusion, foraminal stenosis, or spinal canal stenosis. C3-C4: No focal disc protrusion, foraminal stenosis, or spinal canal stenosis. C4-C5: No focal disc protrusion, foraminal stenosis, or spinal canal stenosis. C5-C6: No focal disc protrusion, foraminal stenosis, or spinal canal stenosis. C6-C7: No focal disc protrusion, foraminal stenosis, or spinal canal stenosis. C7-T1: No focal disc protrusion, foraminal stenosis, or spinal canal stenosis. Procedure Note Minda Schuler MD - 01/21/2025 PROCEDURE: Cervical spine MRI INDICATION: Myelopathy, pain TECHNIQUE: Multiplanar, multisequence MRI of the Cervical spine Withoutcontrast. COMPARISON: No priors available. FINDINGS: Mild anterolisthesis at C7-T1 related to degenerative facet arthropathy.Similar findings are seen at T1-2 and T2-3. No fracture or suspicious marrow replacing lesion. Multilevel degenerative loss of normal disc height and signal withassociated endplate spurring, most marked at C5-6 and C6-7. Degenerative cervical facet arthritis most pronounced at C7-[id number]. Cervical cord is normal in signal and morphology. No epidural collectionor mass is seen within the spinal canal. Foramen magnum is normal. Paraspinal muscles are normal. Findings by level: C2-C3: No focal disc protrusion, foraminal stenosis, or spinal canalstenosis. C3-C4: No focal disc protrusion, foraminal stenosis, or spinal canalstenosis. C4-C5: No focal disc protrusion, foraminal stenosis, or spinal canalstenosis. C5-C6: No focal disc protrusion, foraminal stenosis, or spinal canalstenosis. C6-C7: No focal disc protrusion, foraminal stenosis, or spinal canalstenosis. C7-T1: No focal disc protrusion, foraminal stenosis, or spinal canalstenosis. IMPRESSION: Degenerative disc, facet, and endplate changes throughout the cervicalspine with without significant foraminal or spinal canal stenosis. Nomass effect upon the cord or cord signal abnormality. -------- FINAL REPORT -------- Dictated By: MINDA SCHULER Dictated Date: 01/21/2025 14:50 ET Assigned Physician: MINDA SCHULER Reviewed and Electronically Signed By: MINDA SCHULER Signed Date: 01/21/2025 14:52 ET Workstation ID: [id number] Transcribed By: Self Edit Transcribed Date: 01/21/2025 14:50 ET Adal Rodriguez MD IM MRI PROCEDURES Final Result * MR Brain wo Contrast (01/19/2025 6:55 PM EDT) Anatomical Region Laterality Modality Head and Neck Magnetic Resonan ce 01/21/2025 12:1 0 PM EDT Impressions 01/21/2025 12:56 PM EDT Normal brain MRI without contrast -------- FINAL REPORT -------- Dictated By: MINDA SCHULER Dictated Date: 01/21/2025 12:10 ET Assigned Physician: MINDA SCHULER Reviewed and Electronically Signed By: MINDA SCHULER Signed Date: 01/21/2025 12:56 ET Workstation ID: [id number] Transcribed By: Self Edit Transcribed Date: 01/21/2025 12:10 ET Narrative 01/21/2025 12:56 PM EDT PROCEDURE: Brain MRI INDICATION: Stroke TECHNIQUE: Multiplanar, multisequence MRI of the brain Without contrast. COMPARISON: No priors available. FINDINGS: No acute infarct, mass effect, or intracranial hemorrhage. Brain parenchyma is normal in signal. No abnormal intracranial susceptibility artifact. Sella and foramen magnum are within normal limits. Ventricles, sulci, and cisterns are normal in size and configuration. No hydrocephalus. Major intracranial arterial flow voids are within normal limits. Left maxillary sinus retention cyst. Remainder the sinuses and mastoid air cells are clear. Bilateral lens implants. Orbits and extracranial soft tissues are otherwise within normal limits. Calvarium is normal. Procedure Note Minda Schuler MD - 01/21/2025 PROCEDURE: Brain MRI INDICATION: Stroke TECHNIQUE: Multiplanar, multisequence MRI of the brain Without contrast. COMPARISON: No priors available. FINDINGS: No acute infarct, mass effect, or intracranial hemorrhage. Brain parenchyma is normal in signal. No abnormal intracranialsusceptibility artifact. Sella and foramen magnum are within normal limits. Ventricles, sulci, and cisterns are normal in size and configuration. Nohydrocephalus. Major intracranial arterial flow voids are within normal limits. Left maxillary sinus retention cyst. Remainder the sinuses and mastoidair cells are clear. Bilateral lens implants. Orbits and extracranial soft tissues areotherwise within normal limits. Calvarium is normal. IMPRESSION: Normal brain MRI without contrast -------- FINAL REPORT -------- Dictated By: MINDA SCHULER Dictated Date: 01/21/2025 12:10 ET Assigned Physician: MINDA SCHULER Reviewed and Electronically Signed By: MINDA SCHULER Signed Date: 01/21/2025 12:56 ET Workstation ID: [id number] Transcribed By: Self Edit Transcribed Date: 01/21/2025 12:10 ET Adal Rodriguez MD IM MRI PROCEDURES Final Result from Last 3 Months Insurance MEDICARE Member Subscriber Plan / Payer (Ef fective 2013-Present) Name:KAREL BANKS Relation to Subscriber:Self Name:Karel Banks Payer ID:[id number] Group ID:[id number] Type:Not on file Address: [facility] [address] [id number] Care Teams Bulk Receiver Relationship Specialty Start Date End Date Demi Lr MD [address] [place] [address] [address] [facility] [place] [address] PCP - General Internal Medicine 07/01/20
--- OUTSIDE RECORDS SUMMARY | 2025-02-04 17:34 | XMS_ITS | Patient Health Record ---
Author Organization [facility] Address [address] [place] [address] Support Name Relationship Address Phone Hannah Snell Guarantor Unknown [phone] Allergies No Known Allergies Reason For Referral [...] W/U Status Risk Notes Problem Mixed hyperlipidemia (901284182) Mixed hyperlipidemia (E78.2) Active confirmed Problem Moderate recurrent major depression (83201671) Major depressive disorder, recurrent, moderate (F33.1) Active confirmed Problem Generalized anxiety disorder (98482614) Generalized anxiety disorder (F41.1) Active confirmed Problem Post-traumatic stress disorder (61815452) Post-traumatic stress disorder, unspecified (F43.10) Active confirmed Problem Insomnia (976763078) Insomnia, unspecified (G47.00) Active confirmed Problem Essential hypertension (72980451) Essential (primary) hypertension (I10) Active confirmed Problem Body mass index 30.00 to 34.99 (810219081889490) Body mass index (BMI) 31.0-31.9, adult (Z68.31) Active confirmed Problem Body mass index 30.00 to 34.99 (118705140514809) Body mass index (BMI) 33.0-33.9, adult (Z68.33) Active confirmed Problem Body mass index 40+ - morbidly obese (297235660) Body mass index (BMI) 50-59.9 , adult (Z68.43) Active confirmed Problem Obese class II (320444207395372) Body mass index [BMI] 35.0-35.9, adult (Z68.35) Active confirmed Plan Of Treatment No Information Insurance Providers Payer Name Payer Address Payer Phone Subscriber Number Group Number Insured Name Patient Relationship to Insured Coverage Start Date Coverage End Date [facility] [address] [address] [place] [address] [phone] [id number] Hannah Snell Self - patient is the insured Medical (General) History Medical History History ICD Code anxiety/depression/PTSD, psychiatrist Dr Gregg Abbott, therapist hypertension hyperlipidemia osteoarthritis acid reflux Surgical History Surgery Date(Month/Year) gastric sleeve, 2017 x2 carpal tunnel, right hand breast reduction abdominoplasty Lap band 2010 and she was 260 pound and she dropped to 130 pounds
== END 2025-02-04 14:35 | disposition home or self-care (01) ==
LOC: HO.HMCH 13:50
PROVIDERS: PCP Internal Medicine; Visit Provider Internal Medicine
DX: I10 Essential (primary) hypertension (principal); E66.9 Obesity, unspecified; Z68.1 Body mass index [BMI] 19.9 or less, adult; I70.90 Unspecified atherosclerosis; E78.00 Pure hypercholesterolemia, unspecified; Z90.3 Acquired absence of stomach [part of]; K21.9 Gastro-esophageal reflux disease without esophagitis

== ENCOUNTER → 2025-02-04 13:49 | Outpatient (BNVA) | payer OTHER, SELFPAY | PROVIDERS: PCP Internal Medicine; Visit Provider Internal Medicine | DX: I10 Essential (primary) hypertension (principal); K21.9 Gastro-esophageal reflux disease without esophagitis; R26.89 Other abnormalities of gait and mobility; I70.90 Unspecified atherosclerosis; E78.00 Pure hypercholesterolemia, unspecified; I25.10 Atherosclerotic heart disease of native coronary artery without angina pectoris; Z90.3 Acquired absence of stomach [part of] | CPT/HCPCS: 96127; 99212 ==

== ENCOUNTER 2025-03-12 06:59 | Day surgery (SDC) | payer OTHER, SELFPAY ==
--- NOTE | 2025-03-09 14:17 | HO.ANESPROP2 ---
Documented by User: Tracey Guallpa NP 03/09/25 14:20 HPI - Anesthesia Eval Consult details Narrative: 59yo F for Upper Endoscopy with Balloon Dilitation Anesthesia Pre-Procedure Meds Is the patient on any of the following meds?: GLP1/DPP4 PMFSH Active Problems Active Problems: All Active Problems Gait instability (Acute) Dysuria (Acute) Atherosclerosis of arteries (Acute) Elevated ferritin level (Acute) Intracranial carotid stenosis, bilateral (Acute) Dysphagia (Acute) Family history of brain aneurysm (Acute) Hallucinations (Acute) Anemia (Acute) Wrist pain (Acute) History of sleeve gastrectomy (Acute ~2017) Insomnia (Acute) Cataract (Acute) Stabbing headache (Acute) Abnormal electroencephalogram (EEG) (Acute) Nocturnal hypoxemia (Acute) Tongue lesion (Acute) Cognitive dysfunction (Acute) Hemorrhoids (Acute) Irritable bowel syndrome (Acute) Legally blind (Acute) Generalized anxiety disorder (Acute) Fibromyalgia (Acute) Urge incontinence (Acute) PTSD (post-traumatic stress disorder) (Acute) Obesity (BMI 30-39.9) (Acute) Constipation (Acute) HTN (hypertension) (Acute) Hypercholesterolemia (Acute) GERD (gastroesophageal reflux disease) (Acute) Intestinal malabsorption following gastrectomy (Acute) Past Medical History Medical History Dysphagia RUQ abdominal pain Anemia Vision changes Overweight (BMI 25.0-29.9) Gallbladder contraction Thrush, oral Pre-op evaluation Fatigue Family history of dementia Dizziness Chest pain Palpitations Forgetfulness SOB (shortness of breath) on exertion Rectal pain Right renal stone COVID-19 Nausea and vomiting Diverticulitis Onychomycosis Annual physical exam 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 Rectal spasm Abdominal cramping Diarrhea Esophageal dysmotility Overweight Abscess of finger of left hand Constipation History of colon polyps (~2016) Incarcerated hiatal hernia Achalasia Family history of polyps in the colon Nausea Snoring Hypersomnolence Intestinal malabsorption following gastrectomy Shoulder pain, right Neck pain Polyarthralgia Plantar fasciitis of left foot Impaired glucose tolerance Cervical radiculopathy Hypercholesterolemia Obesity (BMI 30-39.9) Insomnia Vitamin D deficiency PTSD (post-traumatic stress disorder) Polymyalgia HTN (hypertension) GERD (gastroesophageal reflux disease) Family History Family History Father Diabetes Mother High blood pressure High cholesterol Dementia Daughter Healthy female Son No problems noted. Son High blood pressure High cholesterol Sister Cervical cancer Maternal Grandmother Cervical cancer Other Mental health disorder Family history of problems with anesthesia: No Surgical History Surgical History History of sleeve gastrectomy (~2016) Hx of cataract extraction History of repair of hiatal hernia History of History of laparoscopic adjustable gastric banding (~2010) History of bilateral breast reduction surgery (~2011) History of esophagogastroduodenoscopy (EGD) (~2020) Hx of abdominoplasty S/P laparoscopic sleeve gastrectomy (~2016) History of excision of mass (~2016) History of colonoscopy (~2015) Status post panniculectomy (~2013) History of carpal tunnel release (~2001) History of neck surgery History of tubal ligation (~2000) History of Problems with Anesthesia: No Social History Social History Household Members: Significant Other and Other Household Members Other:: adult children Housing: House Are you a primary caregivers homecare to a significant other at home: No Do you presently have visiting nurse or other home services: No Alcohol intake: never Patient Tobacco Use Status: Former Tobacco user Tobacco use type: Cigarette Years Smoked: quit 1989 e-Cigarette/Vaping Use: Never Used Second Hand Smoke Exposure: No Use of substances other than those prescribed or required for medical reasons: No Are you DNR?: No Advance Directives: No Advance Directives Information Provided: Yes Patient : No : No service: No Current occupational status: disabled Cognitive needs: Yes (cane) Hearing needs: No Vision needs: Yes (glasses) Meds Allergies Allergy/AdvReac Type Severity Reaction Status Date / Time No Known Allergies (No Known Allergy Verified 02/04/25 14:11 Allergies*) Home Medications ?Medication ?Instructions ?Recorded ?Confirmed ?Last Taken ?Type bupropion HCl 150 mg 24 hr tablet, 300 mg PO QAM 03/05/20 03/10/25 03/11/24 05:45 History extended release clonazepam 0.5 mg tablet 0.5 mg PO DAILY PRN Anxiety 06/08/20 03/10/25 03/11/24 05:45 History cqzmiovgencp-qkwwasov-snjihu tablet 1 tab PO DAILY 06/08/20 03/10/25 03/09/21 History acetaminophen 500 mg tablet 1,000 mg PO Q6H PRN Pain, Mild 12/23/21 03/10/25 Unknown History (Tylenol Extra Strength) fluoxetine 20 mg capsule 20 mg PO QAM 03/13/24 03/10/25 Unknown History tirzepatide (weight loss) 12.5 12.5 mg subcut QWEEK 10/10/24 03/10/25 02/28/25 History mg/0.5 mL subcutaneous pen injector (Zepbound) Exam Pertinent Lab Results Pertinent Lab Results: Laboratory Tests 01/17/25 10:25 WBC 4.5 L Hgb 11.1 L Hct 33.4 L Plt Count 318 Sodium 143 Potassium 4.0 Chloride 108 Carbon Dioxide 29 BUN 16 Creatinine 1.23 Narrative Narrative: EKG 10/2024 Vent. Rate : 89 BPM Atrial Rate : 89 BPM P-R Int : 138 ms QRS Dur : 84 ms QT Int : 384 ms P-R-T Axes : 62 19 72 degrees QTcB Int : 467 ms Normal sinus rhythm Normal ECG When compared with ECG of 06-Sep-2023 08:04, Nonspecific T wave abnormality no longer evident in Inferior leads Nonspecific T wave abnormality, improved in Lateral leads QT has lengthened Assessment and Plan Assessment Anesthesia Assessment: Chart Reviewed Final Anesthetic Review Family History of Problems with Anesthesia: No History of Problems with Anesthesia: No Documented by User: Carlos Beard MD 03/12/25 07:31 HPI - Anesthesia Eval Anesthesia Pre-Procedure Meds If yes to any meds - educate patient: Pt education - increased risk of aspiration and/or euvolemic DKA [facility] Past Medical History Medical History Dysphagia RUQ abdominal pain Anemia Vision changes Overweight (BMI 25.0-29.9) Gallbladder contraction Thrush, oral Pre-op evaluation Fatigue Family history of dementia Dizziness Chest pain Palpitations Forgetfulness SOB (shortness of breath) on exertion Rectal pain Right renal stone COVID-19 Nausea and vomiting Diverticulitis Onychomycosis Annual physical exam 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 Rectal spasm Abdominal cramping Diarrhea Esophageal dysmotility Overweight Abscess of finger of left hand Constipation History of colon polyps (~2015) Incarcerated hiatal hernia Achalasia Family history of polyps in the colon Nausea Snoring Hypersomnolence Intestinal malabsorption following gastrectomy Shoulder pain, right Neck pain Polyarthralgia Plantar fasciitis of left foot Impaired glucose tolerance Cervical radiculopathy Hypercholesterolemia Obesity (BMI 30-39.9) Insomnia Vitamin D deficiency PTSD (post-traumatic stress disorder) Polymyalgia HTN (hypertension) GERD (gastroesophageal reflux disease) Functional capacity: independent ambulation Family History Family History Father Diabetes Mother High blood pressure High cholesterol Dementia Daughter Healthy female Son No problems noted. Son High blood pressure High cholesterol Sister Cervical cancer Maternal Grandmother Cervical cancer Other Mental health disorder Surgical History Surgical History History of sleeve gastrectomy (~2016) Hx of cataract extraction History of repair of hiatal hernia History of History of laparoscopic adjustable gastric banding (~2010) History of bilateral breast reduction surgery (~2011) History of esophagogastroduodenoscopy (EGD) (~2020) Hx of abdominoplasty S/P laparoscopic sleeve gastrectomy (~2016) History of excision of mass (~2016) History of colonoscopy (~2015) Status post panniculectomy (~2013) History of carpal tunnel release (~2001) History of neck surgery History of tubal ligation (~2000) Social History Social History Household Members: Significant Other and Other Household Members Other:: adult children Housing: House Are you a primary caregivers homecare to a significant other at home: No Do you presently have visiting nurse or other home services: No Alcohol intake: never Patient Tobacco Use Status: Former Tobacco user Tobacco use type: Cigarette Years Smoked: quit smoking 1989 e-Cigarette/Vaping Use: Never Used Second Hand Smoke Exposure: No Use of substances other than those prescribed or required for medical reasons: No Are you DNR?: No Advance Directives: No Advance Directives Information Provided: Yes Patient : No : No service: No Current occupational status: disabled Cognitive needs: Yes (cane) Hearing needs: No Vision needs: Yes (glasses) Meds Allergies Allergy/AdvReac Type Severity Reaction Status Date / Time No Known Allergies (No Known Allergy Verified 02/04/25 14:11 Allergies*) Home Medications ?Medication ?Instructions ?Recorded ?Confirmed ?Last Taken ?Type bupropion HCl 150 mg 24 hr tablet, 300 mg PO QAM 03/05/20 03/10/25 03/11/24 05:45 History extended release clonazepam 0.5 mg tablet 0.5 mg PO DAILY PRN Anxiety 06/08/20 03/10/25 03/11/24 05:45 History ehyuuvhmkkjy-kdaddnux-toytwr tablet 1 tab PO DAILY 06/08/20 03/10/25 03/09/21 History acetaminophen 500 mg tablet 1,000 mg PO Q6H PRN Pain, Mild 12/23/21 03/10/25 Unknown History (Tylenol Extra Strength) fluoxetine 20 mg capsule 20 mg PO QAM 03/13/24 03/10/25 Unknown History tirzepatide (weight loss) 12.5 12.5 mg subcut QWEEK 10/10/24 03/10/25 02/28/25 History mg/0.5 mL subcutaneous pen injector (Zepbound) Exam Exam Date and Time: 03/12/25 Airway Neck ROM: Full Heart: normal Lungs: normal Other: normal Assessment and Plan Final Anesthetic Review NPO: Yes ASA Class: III Final Preanesthetic Review: No Changes in Pt Med Stat, Meds/Allgs Chart Reviewed, Consent Obtained/Reviewed and Anes Risks/Benef Reviewed Patient Risk: Intermediate Procedure Risk: Low (zepbound last took more than 2 weeks ago) Anesthetic Plan Anesthetic Plan: MAC: Disposition: Standard PACU and Extended PACU
[2025-03-10 12:47] VITALS: BMI 23.0
[2025-03-12 07:15] VITALS: BMI 19.0
[2025-03-12 07:22] VITALS: BP 103/62; PULSE 82; RESP 16; TEMP 35.9; O2SAT 100
[2025-03-12] MEDS: Lactated Ringers 1,000 ML 100 ML IVCONT (07:38)
--- NOTE | 2025-03-12 07:50 | MHC.SHP ---
Pre-Procedural Eval Section A - 24 Hr Update-Section A only Date of Service: 03/12/25 Section B - Complete if H&P > 30 days Chief Complaint: Dysphagia, Details of Present Illness: Gallbladder contraction Annual physical exam Overweight (BMI 25.0-29.9) Obesity (BMI 30-39.9) Dysphagia Forgetfulness Anemia Achalasia Snoring Hypersomnolence Thrush, oral Pre-op evaluation Diverticulitis Onychomycosis Plantar fasciitis of left foot Fatigue Dizziness Chest pain Palpitations SOB (shortness of breath) on exertion Rectal pain Right renal stone COVID-19 Rectal pain Nausea and vomiting Overweight Abscess of finger of left hand Family history of polyps in the colon Impaired glucose tolerance Family history of dementia 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 Nausea and vomiting Rectal spasm Abdominal cramping Diarrhea Esophageal dysmotility Constipation History of colon polyps (~2015) Incarcerated hiatal hernia Nausea Intestinal malabsorption following gastrectomy Shoulder pain, right Neck pain Polyarthralgia Cervical radiculopathy Hypercholesterolemia Insomnia Vitamin D deficiency PTSD (post-traumatic stress disorder) Polymyalgia HTN (hypertension) GERD (gastroesophageal reflux disease) Surgical History (Updated 02/21/24 @ 14:55 by CHRISTY Talamantes) History of sleeve gastrectomy (~2016) S/P laparoscopic sleeve gastrectomy (~2016) History of repair of hiatal hernia History of History of laparoscopic adjustable gastric banding (~2010) History of bilateral breast reduction surgery (~2011) History of esophagogastroduodenoscopy (EGD) (~2020) Hx of abdominoplasty History of excision of mass (~2016) History of colonoscopy (~2015) Status post panniculectomy (~2013) History of carpal tunnel release (~2001) History of neck surgery History of tubal ligation (~2000) Present Medications: see Short Stay Collaborative assessment Allergies: Allergies Allergy/AdvReac Type Severity Reaction Status Date / Time No Known Allergies (No Known Allergy Verified 02/04/25 14:11 Allergies*) Review of Systems Review of Systems Comment: Ten point ROS negative Exam Exam Comment: Gen appear: No acute distress HEENT: no icterus Chest: No overt resp distress Abd: soft, nontender, nondistended Psych: Stable affect, answering questions appropriately Neuro: A/Ox3 noted to move all extremities spontaneously Ext: no peripheral edema Plan Diagnosis/Plan: Unchanged I have reviewed the history and physical and performed a pertinent physical examination on my patient. No changes have occurred unless specified. Time Spent With Patient Time: Total time managing care of this patient today ____ minutes.
--- NOTE | 2025-03-12 09:06 | P.OP_ITS ---
Operative Note Operative Note Date of Service: 03/12/25 Narrative: Procedure: Esophagogastroduodenoscopy Endoscopist: Aubrie Johnson MD Indication: GERD, dysphagia Anesthesia Provider: Dr Beard Anesthesia Type: MAC ?? EGD Procedure:?? The procedure, indications, preparation and potential complications were reviewed with the patient, who indicated understanding and gave written informed consent to proceed. A physical exam was performed. The endoscope was introduced through the mouth, and advanced to the second part of duodenum. The mucosa was carefully examined on slow withdrawal of the endoscope. The patient tolerated the procedure well. There were no immediate complications.? ? EGD Findings:? * Esophagus:? Normal mucosa noted in the entire esophagus. The Z line was at 35 cm. There was a small hiatal hernia with the diaphragmatic pinch at 37 cm. * Stomach:?Tubular stomach was noted s/p sleeve gastrectomy. The gastric pouch appeared dilated and easily allowed retroflexion. A single erosion was noted in the herniated portion of the stomach along the greater curvature. Random cold forceps gastric biopsies were taken to rule out H Pylori infection. * Duodenum:? Normal mucosa was noted in the whole of the examined duodenum. Additional intervention: A soft tip Savary wire was advanced from the biopsy channel into the antrum. The gastroscope was then backed out. Savary Devi bougie was advanced over the guidewire and the esophagus was dilated from 16 to 17 mm. On relook, a superficial tear was noted in the upper esophagus at 18 cm confirming successful dilation. ? EGD Impressions:? * EUS stenosis (dilation) * Normal esophagus * Evidence of sleeve gastrectomy with dilated pouch * Gastritis (biopsy) * Normal duodenum ?? Recommendations:?? * Follow biopsy results. Our office will call or send a letter with results within 7-10 days. * Continue PPI therapy. * Avoid NSAIDs * Repeat EGD for updilation to 19-20 mm will be set up in a few months. Above has been reviewed with the patient.
[2025-03-12 09:10] VITALS: BP 118/73; PULSE 82; RESP 21; TEMP 36.4; O2SAT 100
[2025-03-12 09:25] VITALS: BP 129/80; PULSE 83; RESP 15; O2SAT 100
[2025-03-12 09:37] VITALS: BP 116/82; PULSE 87; RESP 16; TEMP 36.3; O2SAT 100
== END 2025-03-12 11:00 | disposition home or self-care (01) ==
PROVIDERS: PCP Internal Medicine; Visit Provider Internal Medicine
PROC: (CPT 43239; principal; 2025-03-12 08:20)
DX: R13.10 Dysphagia, unspecified (principal); R10.11 Right upper quadrant pain; K21.9 Gastro-esophageal reflux disease without esophagitis; K22.2 Esophageal obstruction; Z98.84 Bariatric surgery status; H54.8 Legal blindness, as defined in USA; K44.9 Diaphragmatic hernia without obstruction or gangrene; K29.70 Gastritis, unspecified, without bleeding
CPT/HCPCS: 43239; 43248; 88305; 88313; 88342; J2003; J2704; J3010

== ENCOUNTER → 2025-03-12 06:59 | Outpatient (BNV) | payer OTHER, SELFPAY | PROVIDERS: PCP Internal Medicine; Visit Provider Internal Medicine | DX: R13.10 Dysphagia, unspecified (principal); K22.89 Other specified disease of esophagus; K29.70 Gastritis, unspecified, without bleeding; Z98.84 Bariatric surgery status | CPT/HCPCS: 43239; 43248 ==

== ENCOUNTER 2025-03-26 15:57 | Outpatient (AMB) | payer OTHER, SELFPAY ==
--- NOTE | 2025-03-26 16:00 | A.OFFVIS_ITS ---
Vital Signs 03/26/25 16:14 Height 5 ft 2 in Weight 104 lb 7.986 oz BMI 19.1 BP 135/79 Blood Pressure Location Lt brachial Position Sitting Pulse 80 Intake Visit Reasons: Post-Op follow-Up (gastro) Intake Note: Patient in office today in follow up s/p EGD. CC: Patient states that she continues to feel like the food stays suck in her throat and having to cough. 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 Instructions: was told by specialist to hold clonazepam 0.5 mg PO DAILY PRN fluoxetine 20 mg PO QAM folic acid 1 mg PO DAILY Held on 03/26/25. Instructions: hematology held aolnwm-vvrzoidz-vqvoabb (pork) 36,000-114,000- 180,000 unit (Creon) 1 cap PO QID lisinopril 20 mg PO DAILY magnesium oxide 400 mg PO BEDTIME 30 days metoprolol succinate ER 25 mg PO DAILY 30 days omega-3 fatty acids-fish oil 360-1,200 mg (Fish Oil) 1 cap PO DAILY omeprazole 40 mg (2 x 20 mg) PO BID prazosin 2 mg PO BEDTIME riboflavin (vitamin B2) 400 mg PO DAILY 30 days sennosides (senna) 17.2 mg (2 x 8.6 mg) PO BEDTIME simethicone 180 mg PO QID 30 days simvastatin 20 mg PO BEDTIME thiamine HCl (vitamin B1) 50 mg PO DAILY 30 days tirzepatide (weight loss) (Zepbound) 12.5 mg subcut QWEEK ziprasidone HCl 20 mg PO BEDTIME 30 days zolpidem (Ambien) 10 mg PO BEDTIME PRN HPI HPI Post-Op follow-Up (gastro): Details: Assessment & Plan (1) Dysphagia: Code(s): R13.10 - Dysphagia, unspecified Category: Medical (2) GERD (gastroesophageal reflux disease): Code(s): K21.9 - Gastro-esophageal reflux disease without esophagitis Category: Medical Qualifiers: Esophagitis presence: without esophagitis Qualified Code(s): K21.9 - Gastro-esophageal reflux disease without esophagitis (3) Constipation: Code(s): K59.00 - Constipation, unspecified Category: Medical (4) Irritable bowel syndrome: Code(s): K58.9 - Irritable bowel syndrome, unspecified Category: Medical Plan Her swallowing was improved from 02/2024 through about the beginning of June of 2024. Now the problems is returning. WIll get repeat EGD with dilation. She showed active esophagitis, but is adherent to bid omeprazole 40mg. C/f are gastric bypass and use of Zepbound. Her current regimen consists of omeprazole, Creon, senna, imipramine, and dicyclomine. ROV after procedure. Orders: Orders EGD - GI Use Only 10/10/24 R13.10 - Dysphagia, unspecified Medications: Refilled omeprazole 40 mg (2 x 20 mg) PO BID 180 caps 2RF K21.9 - Gastro-esophageal reflux disease without esophagitis dicyclomine 40 mg (2 x 20 mg) PO QID PRN 240 tabs 3RF for abdominal pain R19.7 - Diarrhea, unspecified, R10.9 - Unspecified abdominal pain scpfke-upoqmevz-cqujrqv 36,000-114,000- 180,000 unit (Creon) 1 cap PO QID 120 caps 6RF K58.9 - Irritable bowel syndrome, unspecified sennosides (senna) 17.2 mg (2 x 8.6 mg) PO BEDTIME 180 tabs 0RF TODAYS VISIT EGD: See results section [facility] Medical History Dysphagia RUQ abdominal pain Anemia Vision changes Overweight (BMI 25.0-29.9) Gallbladder contraction Thrush, oral Pre-op evaluation Fatigue Family history of dementia Dizziness Chest pain Palpitations Forgetfulness SOB (shortness of breath) on exertion Rectal pain Right renal stone COVID-19 Nausea and vomiting Diverticulitis Onychomycosis Annual physical exam 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 Rectal spasm Abdominal cramping Diarrhea Esophageal dysmotility Overweight Abscess of finger of left hand Constipation History of colon polyps (~2015) Incarcerated hiatal hernia Achalasia Family history of polyps in the colon Nausea Snoring Hypersomnolence Intestinal malabsorption following gastrectomy Shoulder pain, right Neck pain Polyarthralgia Plantar fasciitis of left foot Impaired glucose tolerance Cervical radiculopathy Hypercholesterolemia Obesity (BMI 30-39.9) Insomnia Vitamin D deficiency PTSD (post-traumatic stress disorder) Polymyalgia HTN (hypertension) GERD (gastroesophageal reflux disease) Surgical History History of sleeve gastrectomy (~2016) Hx of cataract extraction History of repair of hiatal hernia History of History of laparoscopic adjustable gastric banding (~2010) History of bilateral breast reduction surgery (~2011) History of esophagogastroduodenoscopy (EGD) (~2020) Hx of abdominoplasty S/P laparoscopic sleeve gastrectomy (~2016) History of excision of mass (~2016) History of colonoscopy (~2015) Status post panniculectomy (~2013) History of carpal tunnel release (~2001) History of neck surgery History of tubal ligation (~2000) Family History Father Diabetes Mother High blood pressure High cholesterol Dementia Daughter Healthy female Son No problems noted. Son High blood pressure High cholesterol Sister Cervical cancer Maternal Grandmother Cervical cancer Other Mental health disorder Social History Household Members: Significant Other and Other Household Members Other:: adult children Housing: House Are you a primary patient care technician instructor to a significant other at home: No Do you presently have visiting nurse or other home services: No Alcohol intake: never Patient Tobacco Use Status: Former Tobacco user Tobacco use type: Cigarette Years Smoked: quit smoking 1989 e-Cigarette/Vaping Use: Never Used Second Hand Smoke Exposure: No service: No Current occupational status: disabled Cognitive needs: Yes (cane) Hearing needs: No Vision needs: Yes (glasses) Female Reproductive History Menstrual Age of Menarche: 14 Review of Systems ENT Reports dysphagia Card Reports no additional complaints Resp Reports no additional complaints GI Reports dysphagia and Reports heartburn Physical Exam Vital Signs: BMI result Body Mass Index 19.1 Const General: cooperative and no acute distress Nutritional Appearance: thin Orientation/consciousness: oriented to person, oriented to place and oriented to time Neuro General: oriented to person, oriented to place and oriented to time Psych Appearance: grossly normal and well kempt Mental Status: mental status grossly normal Speech and movement: Normal speech and movement present Affect: normal affect Attitude: cooperative Thought process: Normal thought process present Thought content: Normal thought content present Insight: Limited insight present (Psych) Judgement: Limited judgement present (Psych) Results Reviewed Results Reviewed: EGD Findings:? 03/12/25 * Esophagus:? Normal mucosa noted in the entire esophagus. The Z line was at 35 cm. There was a small hiatal hernia with the diaphragmatic pinch at 37 cm. * Stomach:?Tubular stomach was noted s/p sleeve gastrectomy. The gastric pouch appeared dilated and easily allowed retroflexion. A single erosion was noted in the herniated portion of the stomach along the greater curvature. Random cold forceps gastric biopsies were taken to rule out H Pylori infection. * Duodenum:? Normal mucosa was noted in the whole of the examined duodenum. Additional intervention: A soft tip Savary wire was advanced from the biopsy channel into the antrum. The gastroscope was then backed out. Savary Devi bougie was advanced over the guidewire and the esophagus was dilated from 16 to 17 mm. On relook, a superficial tear was noted in the upper esophagus at 18 cm confirming successful dilation. ? EGD Impressions:? * EUS stenosis (dilation) * Normal esophagus * Evidence of sleeve gastrectomy with dilated pouch * Gastritis (biopsy) * Normal duodenum ?? Recommendations:?? * Follow biopsy results. Our office will call or send a letter with results within 7-10 days. * Continue PPI therapy. * Avoid NSAIDs * Repeat EGD for updilation to 19-20 mm will be set up in a few months. 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: Code(s): K95.89 - Other complications of other bariatric procedure Category: Surgical (3) GERD (gastroesophageal reflux disease): Code(s): K21.9 - Gastro-esophageal reflux disease without esophagitis Category: Medical Qualifiers: Esophagitis presence: without esophagitis Qualified Code(s): K21.9 - Gastro-esophageal reflux disease without esophagitis (4) Dysphagia: Code(s): R13.10 - Dysphagia, unspecified Category: Medical (5) Irritable bowel syndrome: Code(s): K58.9 - Irritable bowel syndrome, unspecified Category: Medical Plan Her current regimen consists of omeprazole, Creon, senna, imipramine, and dicyclomine. * Repeat EGD for updilation to 19-20 mm will be set up in a few months. Subjective Persistent dysphagia following recent endoscopic dilation; patient reports sensation of food and pills ?sticking? in the mid-chest with associated cough and significant pain when bolus passes. Symptoms occur with solids and liquids (including water and coffee); must sip very slowly, as larger swallows trigger pain. Not eating well due to pain with swallowing. Currently taking omeprazole two tablets twice daily. On Zepbound; dose previously increased up to 15 and recently reduced to 12. Reports constipation, gas, and cramping?improved with resumption of senna; experiences gaseous abdominal discomfort. History notable for chronic iron-deficiency anemia with very low iron stores previously treated with iron plus vitamin C; ferritin subsequently markedly elevated (reported near 2000, now ~800 and trending down) with hematology follow-up; anemia symptoms (lightheadedness/dizziness, prior fainting) recurring. Prior neurology evaluation for headaches and abnormal brain imaging indicating arterial ?blockage?; neurosurgery advised no surgical intervention. Cognitive symptoms over the past year include memory issues and word-finding difficulty. Several medications were recently discontinued by neurosurgery, including Dayvigo, vitamins, senna (patient resumed), and dicyclomine; patient found stopping senna and dicyclomine worsened bowel symptoms. Sleep is currently managed with Ambien and prazosin. Relevant Past Medical, Social, and Family History - Chronic anemia with historically low iron stores; ferritin previously very elevated, under hematology care. - Neurologic evaluation for headaches and intracranial arterial findings; no surgery recommended by neurosurgery. - Cognitive complaints (memory/word-finding difficulties) over the past year. - Psychiatric history with ongoing pharmacotherapy. Objective Assessment & Plan Esophageal dysphagia after dilation: Persistent dysphagia with solids and liquids despite recent dilation, consistent with recurrent/ongoing stricture requiring serial dilations. - Arrange repeat endoscopic dilation in the near term; request placed and will have hospital contact patient to schedule; follow up with me post-procedure. - Continue omeprazole two tablets twice daily to minimize reflux-related re- injury. - Outside Contractor Sales to take small sips and small bites pending repeat dilation. Constipation, gas, and cramping (functional bowel symptoms): Symptoms worsened when senna and dicyclomine were stopped; concern for anticholinergic cognitive adverse effects with dicyclomine. - Continue senna for bowel regularity. - Start simethicone as needed for gas pain; prescription sent. - Stop dicyclomine given cognitive side effect concerns (Beers criteria) and patient-reported memory/word-finding issues. - Do not restart amitriptyline at this time given dizziness/fall risk and anticholinergic burden. Medication reconciliation and optimization: Multiple active medications reviewed and updated. - Added Ambien to the medication list; patient to confirm dose at next visit. - Continue prazosin at bedtime per current regimen. - Continue Creon; may consolidate dosing to two capsules in the morning and two at night for adherence per recent evidence. - Continue simvastatin at 20 mg nightly per recent increase. - Documented omega-3 fish oil use. Chronic anemia with prior hyperferritinemia: Complex iron management with hematology involvement; ferritin trending down; anemia symptoms recurring. - Continue management with hematology; hold oral iron as directed by hematology; monitor for symptomatic anemia. Cognitive complaints (memory/word-finding): Ongoing issues; polypharmacy review suggests minimizing anticholinergic agents. - Avoid anticholinergic and Beers list medications where possible (e.g., dicyclomine, imipramine/amitriptyline). - Continue neurology follow-up as arranged. Use of Zepbound: Acknowledged potential GI motility effects. - Continue current dose; monitor GI symptoms; reassess if worsening. Follow-up: Proceed with scheduling for repeat dilation; patient will be brought in after the procedure. Patient to call sooner for worsening dysphagia, i nability to tolerate liquids, chest pain, persistent vomiting, or signs of bleeding. Orders: Referrals GI Procedure Notification R13.10 - Dysphagia, unspecified Medications: New simethicone after meals 180 mg PO QID 120 caps 6RF 30 days Changed From eiuvdr-xtwutfxr-ywygbsw (pork) 36,000-114,000- 180,000 unit (Creon) 1 cap PO QID 120 caps 6RF K58.9 - Irritable bowel syndrome, unspecified To akkvny-prgktpih-yjhlhyy (pork) 36,000-114,000- 180,000 unit (Creon) 1 cap PO BID 120 caps 6RF K58.9 - Irritable bowel syndrome, unspecified Refilled omeprazole 40 mg (2 x 20 mg) PO BID 180 caps 2RF K21.9 - Gastro-esophageal reflux disease without esophagitis Discontinued prazosin Discontinued Reason: Duplicate 2 mg (2 x 1 mg) PO BEDTIME 30 days 60 caps 0RF dicyclomine Discontinued Reason: Doctor's Order 40 mg (2 x 20 mg) PO QID PRN 240 tabs 3RF for abdominal pain R10.9 - Unspecified abdominal pain, R19.7 - Diarrhea, unspecified imipramine HCl Discontinued Reason: Doctor's Order 25 mg PO BEDTIME 30 tabs 6RF K58.9 - Irritable bowel syndrome, unspecified lemborexant (Dayvigo) Discontinued Reason: Doctor's Order 5 mg PO BEDTIME 30 days 30 tabs 3RF On Hold cholecalciferol (vitamin D3) Hold Comment: was told by specialist to hold 125 mcg PO DAILY 90 caps 2RF folic acid Hold Comment: hematology held 1 mg PO DAILY 30 tabs 5RF Z98.84 - Bariatric surgery status Coding Level of Care Code Est Pt Level 4 (32078) Diagnoses Gastric ulcer K25.9 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
[2025-03-26 16:14] VITALS: BP 135/79; PULSE 80; BMI 19.1
--- OUTSIDE RECORDS SUMMARY | 2025-03-26 22:05 | XMS_ITS | Patient Health Record ---
Author Organization [facility] Address [address] [place] [address] Support Name Relationship Address Phone Hannah Snell Guarantor Unknown [phone] Allergies No Known Allergies Reason For Referral [...] W/U Status Risk Notes Problem Mixed hyperlipidemia (906898769) Mixed hyperlipidemia (E78.2) Active confirmed Problem Moderate recurrent major depression (76211248) Major depressive disorder, recurrent, moderate (F33.1) Active confirmed Problem Generalized anxiety disorder (34112611) Generalized anxiety disorder (F41.1) Active confirmed Problem Post-traumatic stress disorder (71161519) Post-traumatic stress disorder, unspecified (F43.10) Active confirmed Problem Insomnia (875552270) Insomnia, unspecified (G47.00) Active confirmed Problem Essential hypertension (13958602) Essential (primary) hypertension (I10) Active confirmed Problem Body mass index 30.00 to 34.99 (911120292442308) Body mass index (BMI) 31.0-31.9, adult (Z68.31) Active confirmed Problem Body mass index 30.00 to 34.99 (777753942005601) Body mass index (BMI) 33.0-33.9, adult (Z68.33) Active confirmed Problem Body mass index 40+ - morbidly obese (819728010) Body mass index (BMI) 50-59.9 , adult (Z68.43) Active confirmed Problem Obese class II (068667422162185) Body mass index [BMI] 35.0-35.9, adult (Z68.35) Active confirmed Plan Of Treatment No Information Insurance Providers Payer Name Payer Address Payer Phone Subscriber Number Group Number Insured Name Patient Relationship to Insured Coverage Start Date Coverage End Date [facility] [address] [address] [place] [phone] [id number] Hannah Snell Self - patient is the insured Medical (General) History Medical History History ICD Code anxiety/depression/PTSD, psychiatrist Dr Gregg Abbott, therapist hypertension hyperlipidemia osteoarthritis acid reflux Surgical History Surgery Date(Month/Year) gastric sleeve, 2017 x2 carpal tunnel, right hand breast reduction abdominoplasty Lap band 2010 and she was 260 pound and she dropped to 130 pounds
--- OUTSIDE RECORDS SUMMARY | 2025-03-26 22:05 | XMS_ITS | Clinical Summary ---
Author Organization Patient Business Ser vice [facility] Address [address] [place] [address] Care Team Providers Care Medical Biller Coder Name Role Phone Demi Lr MD Primary Care Provider [phone] Allergies No known active allergies Medications acetaminophen 500 mg/15 mL liquid Take by mouth. Active levmetamfetamin e (VAPOR INHALER NASL) Inhale by mouth. Active METOPROLOL SUCCINATE ORAL Take by mouth. Active multivitamin with iron (pediatric multivitamin-ir on) tablet chewable split tablet Take by mouth. Active ergocalciferol, vitamin D2, (VITAMIN D2 ORAL) Take by mouth. Active L.acid/L.casei/ B.bif/B.derrell/FOS (PROBIOTIC BLEND ORAL) Take by mouth. Active [...] 1 (one) time each day. 5 Active cholecalciferol (VITAMIN D-3) 125 mcg (5,000 unit) capsule Take 1 capsule (5,000 Units total) by mouth 1 (one) time each day. 5 Active folic acid (FOLVITE) 1 mg tablet Take 1 tablet (1,000 mcg total) by mouth 1 (one) time each day. 5 Active lisinopriL (PRINIVIL,ZESTR IL) 20 mg tablet Take 1 tablet (20 [...] mL 5 Active tirzepatide, weight loss, (Zepbound) 12.5 mg/0.5 mL injection Inject 0.5 mL (12.5 mg total) under the skin every 7 (seven) days. 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/13/2017 Encounters Date Type Department Care Team Description 03/26/2025 Telephone Bariatric Surgery [address] [address] Chapis Ken PA 03/17/2025 Telephone Bariatric Surgery [address] [address] Chapis Ken PA 02/24/2025 Telephone Neurosurgery [place] [address] [address] Jany Toscano MA 02/11/2025 Telephone Bariatric Surgery [address] [address] Chapis Ken PA 02/02/2025 2:12 PM EDT - 02/02/2025 11:59 PM EDT Hospital Encounter [facility] Scan [address] [place] [address] Occlusion and stenosis of bilateral carotid arteries Discharge Disposition: Home or Self Care 01/19/2025 5:58 PM EDT - 01/19/2025 11:59 PM EDT Hospital Encounter [facility] MRI [address] [place] [address] Occlusion and stenosis of bilateral carotid arteries Discharge Disposition: Home or Self Care 01/19/2025 5:58 PM EDT - 01/19/2025 11:59 PM EDT Hospital Encounter [facility] MRI [address] [place] [address] Occlusion and stenosis of bilateral carotid arteries Discharge Disposition: Home or Self Care 01/15/2025 Telephone Bariatric Surgery [facility] [address] [address] Chapis Ken PA 01/06/2025 10:30 AM EDT Consult Neurosurgery [place] [address] [place] [address] Adal Mueller MD Occlusion and stenosis of bilateral carotid arteries from Last 3 Months Surgical History Surgery Date Site/Laterality Comments BARIATRIC SURGERY PROCEDURE: OR LAPS GSTRC RSTRICTIV PX LONGITUDINAL GASTRECTOMY OTHER SURGICAL HISTORY PROCEDURE: OR LAPS GASTRIC RESTRICTIVE PX REMOVE DEVICE & PORT BARIATRIC SURGERY PROCEDURE: OR LAPS GSTRC RSTRICTIV PX LONGITUDINAL GASTRECTOMY OTHER SURGICAL HISTORY PROCEDURE: OR GASTRIC RSTCV W/O BYP VERTICAL-BANDED GASTROPLY BREAST REDUCTION PROCEDURE: OR BREAST REDUCTION CARPAL TUNNEL RELEASE PROCEDURE: OR NEUROPLASTY &/TRANSPOS MEDIAN NRV CARPAL TUNNE SECTION PROCEDURE: OR DELIVERY ONLY HERNIA REPAIR 09/14/2021 PROCEDURE: OR REPAIR FIRST ABDOMINAL WALL HERNIA Medical History [...] PM EST Office Visit Bariatric Surgery - [place] [address] [facility] [address] [place] [address] Chapis Ken PA [facility] [place] [address] Health Maintenance Due Date Last [...] 10/21/2015 Depression Screening 04/23/2024 COVID-19 Vaccine ( - season) 2024 03/25/2022, 04/09/2021, 07/31/2020 Influenza Vaccine (#1) 2024 , 01/25/2023, 03/25/2022, Additional history exists Hypertension/CHF/CAD Annual BMP Blood Test 02/16/2026 02/16/2025, 02/02/2025 DTaP,Tdap,and Td Vaccines (2 - Td [...] Procedure Name Priority Date/Time Associated Diagnosis Comments HEPATIC FUNCTION PANEL Routine 12:21 PM EDT PATRICIA (acute kidney injury) ([facility] V[facility]) Elevated liver function tests CREATININE, SERUM Routine 02/16/2025 12: 21 PM EDT PATRICIA (acute kidney injury) ([facility] V[facility]) Elevated liver function tests CT ANGIO HEAD/NECK WO AND/OR W CONTRAST Routine 02/02/2025 2:53 PM EDT Occlusion and stenosis of bilateral carotid arteries FOLATE Routine 02/02/2025 2:05 PM EDT Hx of obesity IRON AND TIBC Routine 02/02/2025 2:05 PM EDT Hx of obesity ZINC Routine 02/02/2025 2:05 PM EDT Hx of obesity VITAMIN D 25 HYDROXY Routine 02/02/2025 2:05 PM EDT Hx of obesity VITAMIN B6 Routine 02/02/2025 2:05 PM EDT Hx of obesity VITAMIN B12 Routine 02/02/2025 2:05 PM EDT Hx of obesity SELENIUM SERUM Routine 02/02/2025 2:05 PM EDT Hx of obesity COMPREHENSIVE METABOLIC PANEL STAT 02/02/2025 2:05 PM EDT Personal history of nutritional deficiency VITAMIN B1 Routine 02/02/2025 2:05 PM EDT Hx of obesity MR CERVICAL SPINE WO CONTRAST Routine 01/19/2025 7:14 PM EDT Occlusion and stenosis of bilateral carotid arteries MR BRAIN WO CONTRAST Routine 01/19/2025 6:55 PM EDT Occlusion and stenosis of bilateral carotid arteries from Last 3 Months Results * (ABNORMAL) Creatinine (02/16/2025 12:21 PM EDT) Pathologist [facility] Creatinine 1.25(H) 0.50 - 1.10 mg/dL LAB CHEMISTRY METHOD 02/16/2025 4:42 PM EDT [facility] eGFR 49(L) >=60 mL/min/1. 73m2 LAB CHEMISTRY METHOD 02/16/2025 4:42 PM EDT [facility] Comment:Calculation based on the Chronic Kidney Disease Epidemiology Collaboration (CKD-EPI) equation refit without adjustment for race. Blood Venous blood specimen / Unknown Venipuncture / Unknown 02/16/2025 12:21 PM EDT 02/16/2025 12:21 PM EDT us Chapis JUDD LAB BLOOD ORDERABLES Final R esult [facility] [address] [place] [address], * Hepatic function panel (02/16/2025 12:21 PM EDT) Total Protein 6.6 6.0 - 8.0 g/dL LAB CHEMISTRY METHOD 02/16/2025 4:42 PM EDT [facility] Albumin 3.8 3.2 - 5.0 g/dL LAB CHEMISTRY METHOD 02/16/2025 4:42 PM EDT [facility] Total Bilirubin 0.5 0.0 - 1.4 mg/dL LAB CHEMISTRY METHOD 02/16/2025 4:42 PM EDT [facility] Bilirubin, Direct 0.2 0.0 - 0.3 mg/dL LAB CHEMISTRY METHOD 02/16/2025 4:42 PM EDT [facility] Bilirubin, Indirect 0.3 0.0 - 1.1 mg/dL LAB CHEMISTRY METHOD 02/16/2025 4:42 PM EDT [facility] ALT (SGPT) 54 10 - 60 unit/L LAB CHEMISTRY METHOD 02/16/2025 4:42 PM EDT [facility] AST (SGOT) 36 10 - 42 unit/L LAB CHEMISTRY METHOD 02/16/2025 4:42 PM EDT [facility] Alkaline Phosphatase 81 42 - 121 unit/L LAB CHEMISTRY METHOD 02/16/2025 4:42 PM EDT [facility] Blood Venous blood specimen / Unknown Venipuncture / Unknown 02/16/2025 12:21 PM EDT 02/16/2025 12:21 PM EDT us Chapis JUDD LAB BLOOD ORDERABLES Final R esult [facility] [address] [place] [address], * CT Angio Head/Neck wo and/or w Contrast (02/02/2025 2:53 PM EDT) Anatomical Region Laterality Modality Head and Neck Computed Tomogra phy 02/05/2025 9:11 AM EDT Impressions 02/05/2025 10:23 AM EDT Trace calcified plaque in the carotid siphons. No hemodynamically significant stenosis or occlusion of any of the major arteries of the head and neck. -------- FINAL REPORT -------- Dictated By: Og Castañeda Dictated Date: 02/05/2025 09:11 ET Assigned Physician: Og Castañeda Reviewed and Electronically Signed By: Og Castañeda Signed Date: 02/05/2025 10:23 ET Workstation ID: [id number] Transcribed By: Self Edit Transcribed Date: 02/05/2025 09:11 ET Narrative 02/05/2025 10:23 AM EDT PROCEDURE: CT angiogram of the neck and [facility] and delayed postcontrast CT of the brain. HISTORY: Stroke/TIA, assess extracranial arteries Stroke/TIA, assess intracranial arteries. COMPARISON: MRI brain dated 01/19/2025. TECHNIQUE: CT angiogram of the neck and [facility] with multiplanar reformats. Delayed postcontrast images of the brain were also obtained. IV contrast dose: 90 mL [id number]. Dose length product: 3293 mGy-cm. FINDINGS: BRAIN: No hemorrhage, edema, mass, or extra-axial fluid collection. No CT evidence of an acute large vessel infarct. Ventricles and sulci are age commensurate. Patchy hypoattenuation in the supratentorial white matter suggestive of mild chronic microvascular ischemic disease. Trace atherosclerotic calcification of the heart siphons CTA: Minimal calcified plaque in the aortic arch. Bovine arch configuration. The right subclavian artery is partially obscured by streak artifact. No visible subclavian stenosis. There is mild calcified plaque in both carotid siphons. The common and internal carotid arteries are otherwise unremarkable. 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 Dominant right vertebral artery. No vertebral stenosis. The basilar artery is widely patent. Both garbage worker are widely patent. The anterior and middle cerebral arteries are widely patent. No aneurysm. No findings to suggest a vascular malformation. Dural venous sinuses are patent. ORBITS: Lens implants. SINUSES/MASTOIDS: Large mucous retention cyst along the floor of the left maxillary antrum. CALVARIUM: Normal. OTHER: Small low-attenuation nodules in the right thyroid lobe which could be better evaluated with ultrasound. Mild degenerative changes of the cervical spine. Procedure Note Og Castañeda MD - 02/05/2025 PROCEDURE: CT angiogram of the neck and [facility] and delayedpostcontrast CT of the brain. HISTORY: Stroke/TIA, assess extracranial arteries Stroke/TIA, assess intracranial arteries. COMPARISON: MRI brain dated 01/19/2025. TECHNIQUE: CT angiogram of the neck and [facility] with multiplanarreformats. Delayed postcontrast images of the brain were also obtained. IV contrast dose: 90 mL ISOVUE-370. Dose length product: 3293 mGy-cm. FINDINGS: BRAIN: No hemorrhage, edema, mass, or extra-axial fluid collection. No CTevidence of an acute large vessel infarct. Ventricles and sulci are agecommensurate. Patchy hypoattenuation in the supratentorial white mattersuggestive of mild chronic microvascular ischemic disease. Traceatherosclerotic calcification of the heart siphons CTA: Minimal calcified plaque in the aortic arch. Bovine archconfiguration. The right subclavian artery is partially obscured by streak artifact. Novisible subclavian stenosis. There is mild calcified plaque in both carotid siphons. The common andinternal carotid arteries are otherwise unremarkable. 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 No vertebral stenosis. The basilar artery is widely patent. Both garbage worker are widely patent. The anterior and middle cerebral arteries are widely patent. No aneurysm. No findings to suggest a vascular malformation. Duralvenous sinuses are patent. ORBITS: Lens implants. SINUSES/MASTOIDS: Large mucous retention cyst along the floor of the leftmaxillary antrum. CALVARIUM: Normal. OTHER: Small low-attenuation nodules in the right thyroid lobe which couldbe better evaluated with ultrasound. Mild degenerative changes of thecervical spine. IMPRESSION: Trace calcified plaque in the carotid siphons. No hemodynamicallysignificant stenosis or occlusion of any of the major arteries of the headand neck. -------- FINAL REPORT -------- Dictated By: Og Castañeda Dictated Date: 02/05/2025 09:11 ET Assigned Physician: Og Castañeda Reviewed and Electronically Signed By: Og Castañeda Signed Date: 02/05/2025 10:23 ET Workstation ID: [id number] Transcribed By: Self Edit Transcribed Date: 02/05/2025 09:11 ET us Adal Rodriguez MD IMG CT PROCEDURES Final R esult * (ABNORMAL) Iron and TIBC (02/02/2025 2:05 PM EDT) Iron 54 40 - 150 mcg/dL LAB CHEMISTRY METHOD 02/02/2025 2:51 PM EDT [facility] TIBC 241(L) 250 - 450 mcg/dL LAB CHEMISTRY METHOD 02/02/2025 2:51 PM EDT [facility] Iron Saturation 22 15 - 50 % LAB CHEMISTRY METHOD 02/02/2025 2:51 PM EDT [facility] Blood Venous blood specimen / Unknown Venipuncture / Unknown 02/02/2025 2:05 PM EDT 02/02/2025 2:12 PM EDT Chapis JUDD LAB BLOOD ORDERABLES Final R esult Performing Organization Address City/[facility]/ZIP Co de Phone Number [facility] [address] [place] [address], [place] [phone] * Zinc (02/02/2025 2:05 PM EDT) Zinc 76 60 - 130 ug/dL 02/05/2025 11:19 AM EDT [facility] Comment: Elevated results may be due to sample collected in a non-certified trace element-free tube. This test was developed and the performance characteristics determined by [facility]. It has not been cleared or approved by the FDA. The laboratory is regulated under CLIA as qualified to perform high-complexity testing. This test is used for patient testing purposes. It should not be regarded as investigational or for research. Test performed at [facility], [address], [place] [address] Joleen Shabazz MD, PhD - Corporate Safety Manager Blood Venous blood specimen / Unknown Venipuncture / Unknown 02/02/2025 2:05 PM EDT 02/02/2025 2:16 PM EDT Chapis JUDD LAB BLOOD ORDERABLES Final R esult Performing Organization Address City/[facility]/ZIP Co de Phone Number [facility] [address] [place] [address] * Selenium serum (02/02/2025 2:05 PM EDT) Pathologist [facility] Selenium 138 63 - 160 mcg/L 02/06/2025 9:17 PM EDT [facility] Comment: This test was developed and its analytical performance characteristics have been determined by [employer] [place] [place]. It has not been cleared or approved by the U.S. Food and Drug Administration. This assay has been validated pursuant to the CLIA regulations and is used for clinical purposes. Test Performed by [facility], [employer] [facility], [address] [place] [address] Ozzy Daugherty M.D., Ph.D., Director of Laboratories , CLIA [id number] Blood Venous blood specimen / Unknown Venipuncture / Unknown 02/02/2025 2:05 PM EDT 02/02/2025 2:16 PM EDT Chapis JUDD LAB BLOOD ORDERABLES Final R esult [facility] [address] [place] [address] * (ABNORMAL) Vitamin D 25 hydroxy (02/02/2025 2:05 PM EDT) Pathologist [facility] Vit D, 25-Hydroxy 110.4(H) 30.0 - 80.0 ng/mL LAB CHEMISTRY METHOD 02/02/2025 4:02 PM EDT [facility] Blood Venous blood specimen / Unknown Venipuncture / Unknown 02/02/2025 2:05 PM EDT 02/02/2025 2:12 PM EDT Chapis JUDD LAB BLOOD ORDERABLES Final R esult [facility] [address] [place] [address], [place] [phone] * Vitamin B1 (02/02/2025 2:05 PM EDT) Vitamin B1 Whole Blood 76 38 - 122 ug/L 02/09/2025 12:26 PM EDT [facility] Comment: This test was developed and the performance characteristics determined by [facility]. It has not been cleared or approved by the FDA. The laboratory is regulated under CLIA as qualified to perform high-complexity testing. This test is used for patient testing purposes. It should not be regarded as investigational or for research. Test performed at [facility], [address] [place] [address] Joleen Shabazz MD, PhD - Corporate Safety Manager Blood Venous blood specimen / Unknown Venipuncture / Unknown 02/02/2025 2:05 PM EDT 02/02/2025 2:16 PM EDT Chapis JUDD LAB BLOOD ORDERABLES Final R esult [facility] [address] [place] [address] * Vitamin B6 (02/02/2025 2:05 PM EDT) Pathologist [facility] Vitamin B6 (Pyridoxine) Level 32 5 - 50 ug/L 02/06/2025 10:31 AM EDT [facility] Comment: This test was developed and the performance characteristics determined by [facility]. It has not been cleared or approved by the FDA. The laboratory is regulated under CLIA as qualified to perform high-complexity testing. This test is used for patient testing purposes. It should not be regarded as investigational or for research. Test performed at [facility], [address] , [place] [address] Joleen Shabazz MD, PhD - Corporate Safety Manager Blood Venous blood specimen / Unknown Venipuncture / Unknown 02/02/2025 2:05 PM EDT 02/02/2025 2:16 PM EDT Chapis JUDD LAB BLOOD ORDERABLES Final R esult [facility] [place] [address] * (ABNORMAL) Folate (02/02/2025 2:05 PM EDT) Pathologist [facility] Folate >20.0(H) 2.8 - 17.0 ng/ml LAB CHEMISTRY METHOD 02/02/2025 3:14 PM EDT [facility] Blood Venous blood specimen / Unknown Venipuncture / Unknown 02/02/2025 2:05 PM EDT 02/02/2025 2:12 PM EDT Chapis JUDD LAB BLOOD ORDERABLES Final R esult [facility] [address] [place] [address], [place] [phone] * (ABNORMAL) Vitamin B12 (02/02/2025 2:05 PM EDT) [facility] Vitamin B-12 1,273(H) 250 - 900 pcg/mL LAB CHEMISTRY METHOD 02/02/2025 3:14 PM EDT [facility] Blood Venous blood specimen / Unknown Venipuncture / Unknown 02/02/2025 2:05 PM EDT 02/02/2025 2:12 PM EDT Chapis JUDD LAB BLOOD ORDERABLES Final R esult [facility] [address] [place] [address], [place] [phone] * (ABNORMAL) Comprehensive metabolic panel (02/02/2025 2:05 PM EDT) Pathologist [facility] Sodium 141 133 - 145 mmol/L LAB CHEMISTRY METHOD 02/02/2025 2:51 PM EDT [facility] Potassium 3.9 3.5 - 5.5 mmol/L LAB CHEMISTRY METHOD 02/02/2025 2:51 PM [facility] Chloride 105 96 - 110 mmol/L LAB CHEMISTRY METHOD 02/02/2025 2:51 PM [facility] CO2 26 21 - 32 mmol/L LAB CHEMISTRY METHOD 02/02/2025 2:51 PM [facility] Anion Gap 10 3 - 11 LAB CHEMISTRY METHOD 02/02/2025 2:51 PM [facility] Glucose 83 70 - 100 mg/dL LAB CHEMISTRY METHOD 02/02/2025 2:51 PM [facility] BUN 11 5 - 25 mg/dL LAB CHEMISTRY METHOD 02/02/2025 2:51 PM [facility] Creatinine 1.26(H) 0.50 - 1.10 mg/dL LAB CHEMISTRY METHOD 02/02/2025 2:51 PM [facility] eGFR 49(L) >=60 mL/min/1. 73m2 LAB CHEMISTRY METHOD 02/02/2025 2:51 PM [facility] Comment:Calculation based on the Chronic Kidney Disease Epidemiology Collaboration (CKD-EPI) equation refit without adjustment for race. BUN/Creatinine Ratio 8.7 LAB CHEMISTRY METHOD 02/02/2025 2:51 PM [facility] Calcium 9.6 8.5 - 10.5 mg/dL LAB CHEMISTRY METHOD 02/02/2025 2:51 PM [facility] AST (SGOT) 52(H) 10 - 42 unit/L LAB CHEMISTRY METHOD 02/02/2025 2:51 PM [facility] ALT (SGPT) 99(H) 10 - 60 unit/L LAB CHEMISTRY METHOD 02/02/2025 2:51 PM [facility] Alkaline Phosphatase 72 42 - 121 unit/L LAB CHEMISTRY METHOD 02/02/2025 2:51 PM EDT [facility] Total Protein 6.4 6.0 - 8.0 g/dL LAB CHEMISTRY METHOD 02/02/2025 2:51 PM EDT [facility] Albumin 3.9 3.2 - 5.0 g/dL LAB CHEMISTRY METHOD 02/02/2025 2:51 PM EDT [facility] Total Bilirubin 0.5 0.0 - 1.4 mg/dL LAB CHEMISTRY METHOD 02/02/2025 2:51 PM EDT [facility] Blood Venous blood specimen / Unknown Venipuncture / Unknown 02/02/2025 2:05 PM EDT 02/02/2025 2:12 PM EDT us Chapis JUDD LAB BLOOD ORDERABLES Final R esult [facility] [address] [place] [address], * MR Cervical Spine wo Contrast (01/19/2025 7:14 PM EDT) Anatomical Region Laterality Modality C-spine, Spine Magnetic Resonan ce 01/21/2025 2:50 PM EDT Impressions 01/21/2025 2:52 PM EDT Degenerative disc, facet, and endplate changes throughout the cervical spine with without significant foraminal or spinal canal stenosis. No mass effect upon the cord or cord signal abnormality. -------- FINAL REPORT -------- Dictated By: ESTEBAN SCHULER Dictated Date: 01/21/2025 14:50 ET Assigned Physician: ESTEBAN SCHULER Reviewed and Electronically Signed By: ESTEBAN SCHULER Signed Date: 01/21/2025 14:52 ET Workstation ID: [id number] Transcribed By: Self Edit Transcribed Date: 01/21/2025 [...] stenosis, or spinal canal stenosis. Procedure Note Esteban Schuler MD - 01/21/2025 PROCEDURE: Cervical spine [...] Degenerative cervical facet arthritis most pronounced at [id number]. Cervical cord is normal in signal and [...] abnormality. -------- FINAL REPORT -------- Dictated By: ESTEBAN SCHULER Dictated Date: 01/21/2025 14:50 ET Assigned Physician: ESTEBAN SCHULER Reviewed and Electronically Signed By: ESTEBAN SCHULER Signed Date: 01/21/2025 14:52 ET Workstation ID: [id number] Transcribed By: Self Edit Transcribed Date: 01/21/2025 14:50 ET Adal Rodriguez MD IMG MRI PROCEDURES Final Result * MR Brain wo Contrast (01/19/2025 6:55 PM EDT) Anatomical Region Laterality Modality Head and Neck Magnetic Resonan ce 01/21/2025 12:1 0 PM EDT Impressions 01/21/2025 12:56 PM EDT Normal brain MRI without contrast -------- FINAL REPORT -------- Dictated By: ESTEBAN SCHULER Dictated Date: 01/21/2025 12:10 ET Assigned Physician: ESTEBAN SCHULER Reviewed and Electronically Signed By: ESTEBAN SCHULER Signed Date: 01/21/2025 12:56 ET Workstation ID: [id number] Transcribed By: Self Edit Transcribed Date: 01/21/2025 [...] normal limits. Calvarium is normal. Procedure Note Esteban Schuler MD - 01/21/2025 PROCEDURE: Brain MRI [...] contrast -------- FINAL REPORT -------- Dictated By: ESTEBAN SCHULER Dictated Date: 01/21/2025 12:10 ET Assigned Physician: ESTEBAN SCHULER Reviewed and Electronically Signed By: ESTEBAN SCHULER Signed Date: 01/21/2025 12:56 ET Workstation ID: [id number] Transcribed By: Self Edit Transcribed Date: 01/21/2025 12:10 ET Adal Rodriguez MD IM MRI PROCEDURES Final Result from Last 3 Months Insurance [facility] MEDIC[facility] Member Subscriber Plan / Payer (Ef fective 2013-Present) Name:HANNAH BANKS Relation to Subscriber:Self Name:Hannah Banks Payer ID:[id number] Group ID:[id number] Type:Not on file Address: [address] [place] [facility] [place] [address] Care Teams Medical Biller Coder Relationship Specialty Start Date End Date Demi Lr MD 2 [facility] [address] [facility] [place] [address] PCP - General Internal Medicine 07/01/20
--- OUTSIDE RECORDS SUMMARY | 2025-03-26 22:05 | XMS_ITS | Encounter Summary ---
Author Organization [facility] Address [address] [place] [address] Care Team Providers Care Infantry Unit Leader Name Role Phone Demi Lr MD Primary Care Provider [phone] Reason for Visit * Reason Onset Date Comments prior auth 03/26/2025 Encounter Details Date Type Department Care Team (Late st Contact Info) Description 03/26/2025 Telephone Bariatric Surgery - [address] [place] [address] Chapis Ken PA [address] [place] [phone] Social History Tobacco Use Types Packs/Day [...] encounter Progress Notes * Salud Leyva - 03/26/2025 1:17 PM EST Please send a PA to [facility] for Zepbound 12.5 mg Pts last dose was beginning of January documented in this encounter Plan of Treatment Upcoming Encounters Date Type Department Care Team (Late st Contact Info) Description 05/11/2025 3:15 PM EST Office Visit Bariatric Surgery - [address] [place] [id number] Chapis Ken PA [address] [place] [phone] documented as of this encounter Visit Diagnoses Not on filedocumented in this encounter Care Teams Infantry Unit Leader Relationship Specialty Start Date End Date Demi Lr MD [address] [place] [address] [address] [facility] [place] [address] PCP - General Internal Medicine 07/01/20 documented as of this encounter
--- OUTSIDE RECORDS SUMMARY | 2025-03-26 22:05 | XMS_ITS | Encounter Summary ---
Author Organization [employer] Address [address] [place] [address] Care Team Providers Care Journalists And Other Writers Name Role Phone Demi Lr MD Primary Care Provider [phone] Reason for Referral * Medications - Pending Review Specialty Diagnoses / Procedures Referred By Maryellen gray Referred To Contact Chapis Ken PA [address] [place] [address] Phone: tel: fax: Referral ID Status Reason Start Date Expiration Date V isits Requested Visits Authorized [id number] Pending Review 1 Reason for Visit * Reason Onset Date Comments Med Refill 03/17/2025 Zepbound 12.5 mg Encounter Details Date Type Department Care Team ([facility] st Contact Info) Description 03/17/2025 Telephone Bariatric Surgery - [address] [place] [address] Chapis Ken PA [address] [place] [address] Social History Tobacco Use Types Packs/Day [...] on file documented as of this encounter Ordered Prescriptions Prescription Sig Dispense Quantity Refills Last Filled Start Date End Date tirzepatide, weight loss, (Zepbound) 12.5 mg/0.5 mL injection Inject 0.5 mL (12.5 mg total) under the skin every 7 (seven) days. 2 mL 03/23/2025 documented in this encounter Progress Notes * Sally Santos - 03/17/2025 11:30 AM EST Patient did well on Zepbound 12.5 mgs and would like to remain. If appropriate, please send script for Zepbound 12.5 mgs to their pharmacy. The patient does have a follow up in 05/11/2025 documented in this encounter Plan of Treatment Upcoming Encounters Date Type Department Care Team (Late st Contact Info) Description 05/11/2025 3:15 PM EST Office Visit Bariatric Surgery - [address] [place] [address] Chapis Ken PA [address] [place] [phone] documented as of this encounter Visit Diagnoses Not on filedocumented in this encounter Care Teams Journalists And Other Writers Relationship Specialty Start Date End Date Demi Lr MD [address] [place] [address] [address] [facility] [place] [address] PCP - General Internal Medicine 07/01/20 documented as of this encounter
== END 2025-03-26 16:46 | disposition home or self-care (01) ==
LOC: HO.HGI 15:58
PROVIDERS: PCP Internal Medicine; Visit Provider Nurse Practitioner
DX: K25.9 Gastric ulcer, unspecified as acute or chronic, without hemorrhage or perforation (principal); K95.89 Other complications of other bariatric procedure; K21.9 Gastro-esophageal reflux disease without esophagitis; R13.10 Dysphagia, unspecified; K58.9 Irritable bowel syndrome, unspecified
CPT/HCPCS: 99214

== ENCOUNTER → 2025-03-26 15:57 | Outpatient (BNVA) | payer OTHER, SELFPAY | PROVIDERS: PCP Internal Medicine; Visit Provider Nurse Practitioner | DX: R13.10 Dysphagia, unspecified (principal); K25.9 Gastric ulcer, unspecified as acute or chronic, without hemorrhage or perforation; K21.9 Gastro-esophageal reflux disease without esophagitis; K58.9 Irritable bowel syndrome, unspecified; K95.89 Other complications of other bariatric procedure; Z79.899 Other long term (current) drug therapy; Z98.890 Other specified postprocedural states | CPT/HCPCS: 99212 ==

== ENCOUNTER 2025-04-02 09:14 | Outpatient (AMB) | payer OTHER, SELFPAY ==
--- NOTE | 2025-03-31 11:16 | A.OFFVIS_ITS ---
Intake Visit Reasons: F/up 6mo Swapped to Telehealth PT has [facility] Intake Note: [employer] Required: No Accompanied by: Self / Same As Patient Allergies No Known Allergies (No Known Allergies*) Allergy (Verified 03/26/25 16:17) HPI Comments Details: 58-yr-old female presents for f/u visit of cognitive difficulties and headache. Pt interval medical changes: She saw hematology for elevated ferritin levels, which have decreased since stopping oral iron supplements She has continued to have weight loss on zepbound tx- now about 104 lbs. The head MRA, 10/18/2024, showed flow signal narrowing cavernous segments both ICAs likely related to atherosclerosis disease. Following review of the MRA, she was referred to [place] [facility], Dr Adal Young. She notes she had fallen just before having the neurosurgery consult- and then underwent brain MRI, c-spine MRI, and head CTA- which were reassuring, other than multilevel cervical degenerative changes without cord compression or signs of myelopathy She reports she sometimes does forget things. She discussed this w/ her GI, and they just stopped her bentyl and replaced it w/ simethicone- in hopes this would reduce risk for cognitive s/e's. She states she is sleeping btter, since her psychiatrist restarted her on zolpidem. She states she had to miss her neuro-psych evaluation due to having Covid-19 infection in July. She can still be forgetful at times- may forget the name of something. she is having more difficulty making decisions. Pt reports her headaches have decreased in frequency- now a few times a week, and lasting just seconds- but still a strong sharp pain. She states she is not having the occipital sharp/pounding headcahe as much. Her neck tightness/soreness is better- but has to be careful not to tie her hair up tightly. She stopped straightening her hair- as the pulling and heat is bothersome She is using Tylenol prn. She previously stopped Meloxicam d/t gastritis. She has done PT many times for her neck- and states it has not helped. She can still be dizzy and off-balance. She notes that she does not take much fluid- trying to drink better. 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 Rectal spasm Abdominal cramping Diarrhea Esophageal dysmotility Overweight Abscess of finger of left hand Constipation History of colon polyps (~2015) Incarcerated hiatal hernia Achalasia Family history of polyps in the colon Nausea Snoring Hypersomnolence Intestinal malabsorption following gastrectomy Shoulder pain, right Neck pain Polyarthralgia Plantar fasciitis of left foot Impaired glucose tolerance Cervical radiculopathy Hypercholesterolemia Obesity (BMI 30-39.9) Insomnia Vitamin D deficiency PTSD (post-traumatic stress disorder) Polymyalgia HTN (hypertension) GERD (gastroesophageal reflux disease) Surgical History History of sleeve gastrectomy (~2016) Hx of cataract extraction History of repair of hiatal hernia History of History of laparoscopic adjustable gastric banding (~2010) History of bilateral breast reduction surgery (~2011) History of esophagogastroduodenoscopy (EGD) (~2020) Hx of abdominoplasty S/P laparoscopic sleeve gastrectomy (~2016) History of excision of mass (~2016) History of colonoscopy (~2015) Status post panniculectomy (~2013) History of carpal tunnel release (~2001) History of neck surgery History of tubal ligation (~2000) Family History Father Diabetes Mother High blood pressure High cholesterol Dementia Daughter Healthy female Son No problems noted. Son High blood pressure High cholesterol Sister Cervical cancer Maternal Grandmother Cervical cancer Other Mental health disorder Social History Household Members: Significant Other and Other Household Members Other:: adult children Housing: House Are you a primary personal care attendant to a significant other at home: No Do you presently have visiting nurse or other home services: No Alcohol intake: never Patient Tobacco Use Status: Former Tobacco user Tobacco use type: Cigarette Years Smoked: quit smoking 1989 e-Cigarette/Vaping Use: Never Used Second Hand Smoke Exposure: No service: No Current occupational status: disabled Cognitive needs: Yes (cane) Hearing needs: No Vision needs: Yes (glasses) Female Reproductive History Menstrual Age of Menarche: 14 Physical Exam Const General: cooperative and no acute distress Orientation/consciousness: patient oriented x3 Resp Effort & Inspection: normal respiratory effort and able to speak in complete sentences Neuro General: patient oriented x3 Cognition (Neuro): normal cognition Psych Appearance: grossly normal Mental Status: mental status grossly normal Speech and movement: Clear speech present Affect: normal affect Attitude: cooperative Telehealth Telehealth Telehealth Platform: [employer] Location of provider rendering services: practice address Location of patient: address on file Patient Identification confirmed using: Name, : Yes Telehealth method: video Patient verbally consented to treatment: Yes Patient verbally consented to billing insurance company: Yes Patient informed of any privacy concerns related to visit: Yes Minutes spent on Phone/Video with Pt.: 29 Results Reviewed Results Reviewed: 02/05/2025 PROCEDURE: CT angiogram of the neck and [place] and delayed postcontrast CT of the brain. HISTORY: Stroke/TIA, assess extracranial arteries Stroke/TIA, assess intracranial arteries. COMPARISON: MRI brain dated 01/19/2025. TECHNIQUE: CT angiogram of the neck and [place] with multiplanar reformats. Delayed postcontrast images of the brain were also obtained. IV contrast dose: 90 mL [id number]. Dose length product: 3293 mGy-cm. FINDINGS: BRAIN: No hemorrhage, edema, mass, or extra-axial fluid collection. No CT evidence of an acute large vessel infarct. Ventricles and sulci are age commensurate. Patchy hypoattenuation in the supratentorial white matter suggestive of mild chronic microvascular ischemic disease. Trace atherosclerotic calcification of the heart siphons CTA: Minimal calcified plaque in the aortic arch. Bovine arch configuration. The right subclavian artery is partially obscured by streak artifact. No visible subclavian stenosis. There is mild calcified plaque in both carotid siphons. The common and internal carotid arteries are otherwise unremarkable. 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 Dominant right vertebral artery. No vertebral stenosis. The basilar artery is widely patent. Both spinning machine operator are widely patent. The anterior and middle cerebral arteries are widely patent. No aneurysm. No findings to suggest a vascular malformation. Dural venous sinuses are patent. ORBITS: Lens implants. SINUSES/MASTOIDS: Large mucous retention cyst along the floor of the left maxillary antrum. CALVARIUM: Normal. OTHER: Small low-attenuation nodules in the right thyroid lobe which could be better evaluated with ultrasound. Mild degenerative changes of the cervical spine. IMPRESSION: Trace calcified plaque in the carotid siphons. No hemodynamically significant stenosis or occlusion of any of the major arteries of the head and neck. 01/21/2025 PROCEDURE: Cervical spine MRI INDICATION: Myelopathy, pain TECHNIQUE: Multiplanar, multisequence MRI of the Cervical spine Without contrast. COMPARISON: No priors available. FINDINGS: Mild anterolisthesis at C7-T1 related to degenerative facet arthropathy. Similar findings are seen at T1-2 and T2-3. No fracture or suspicious marrow replacing lesion. Multilevel degenerative loss of normal disc height and signal with associated endplate spurring, most marked at C5-6 and C6-7. Degenerative cervical facet arthritis most pronounced at C7-T1 bilaterally. Cervical cord is normal in signal and morphology. No epidural collection or mass is seen within the spinal canal. Foramen magnum is normal. Paraspinal muscles are normal. Findings by level: C2-C3: No focal disc protrusion, foraminal stenosis, or spinal canal stenosis. C3-C4: No focal disc protrusion, foraminal stenosis, or spinal canal stenosis. C4-C5: No focal disc protrusion, foraminal stenosis, or spinal canal stenosis. C5-C6: No focal disc protrusion, foraminal stenosis, or spinal canal stenosis. C6-C7: No focal disc protrusion, foraminal stenosis, or spinal canal stenosis. C7-T1: No focal disc protrusion, foraminal stenosis, or spinal canal stenosis. IMPRESSION: Degenerative disc, facet, and endplate changes throughout the cervical spine with without significant foraminal or spinal canal stenosis. No mass effect upon the cord or cord signal abnormality. 01/21/2025 PROCEDURE: Brain MRI INDICATION: Stroke TECHNIQUE: Multiplanar, multisequence MRI of the brain Without contrast. COMPARISON: No priors available. FINDINGS: No acute infarct, mass effect, or intracranial hemorrhage. Brain parenchyma is normal in signal. No abnormal intracranial susceptibility artifact. Sella and foramen magnum are within normal limits. Ventricles, sulci, and cisterns are normal in size and configuration. No hydrocephalus. Major intracranial arterial flow voids are within normal limits. Left maxillary sinus retention cyst. Remainder the sinuses and mastoid air cells are clear. Bilateral lens implants. Orbits and extracranial soft tissues are otherwise within normal limits. Calvarium is normal. IMPRESSION: Normal brain MRI without contrast 10/18/2024 MR ANGIOGRAPHY BRAIN WITHOUT CONTRAST CLINICAL INFORMATION: Primary stabbing headache. COMPARISON: None available. TECHNIQUE: 3-D [id number]. Maximum intensity projections [place]. FINDINGS: Anterior cerebral circulation: ICAs: No flow signal gap or abrupt cut off. Flow signal narrowing at the cavernous segments. MCA's: No flow signal gap or abrupt cut off. Bifurcation/trifurcation demonstrated no flow signal irregularity. ACAs: No flow signal gap or abrupt cut off. Anterior communicating artery flow signal is absent. Ophthalmic arteries flow signal is normal. Posterior communicating arteries flow signal is absent. Posterior cerebral circulation: V3/V4 segments demonstrated no flow signal gap or abrupt cut off or intimal flap. Right vertebral artery is dominant. PICA flow signal is normal. Right anterior inferior cerebral arteries flow signal is present. Basilar artery flow signal demonstrates no flow signal gap or intimal flap. Superior cerebellar arteries flow signal is normal. spinning machine operator: No flow signal gap or abrupt cut off. MR/MR angio head wo con IMPRESSION: Flow signal narrowing cavernous segments both ICAs likely related to atherosclerosis disease. No main cerebral artery occlusion or embolus or gross cerebral aneurysm. Right vertebral artery is dominant. Assessment & Plan Assessment & Plan (1) Cognitive dysfunction: Comment: MMSE 24 Code(s): F09 - Unspecified mental disorder due to known physiological condition Category: Medical (2) Stabbing headache: Code(s): G44.85 - Primary stabbing headache Category: Medical (3) Insomnia: Code(s): G47.00 - Insomnia, unspecified Category: Medical (4) Generalized anxiety disorder: Comment: Dr. Mendieta Q month(June 2021) [facility], New 04/2024 Code(s): F41.1 - Generalized anxiety disorder Category: Medical (5) PTSD (post-traumatic stress disorder): Comment: [facility] counselling once a week psychiatrist Q 2 months Code(s): F43.10 - Post-traumatic stress disorder, unspecified Category: Medical (6) Hallucinations: Code(s): R44.3 - Hallucinations, unspecified Category: Medical Plan For cognitive s/s: patient's previous workup: * HST- inconclusive. * In-lab sleep- no evidence for sleep apnea. AHI < 0.4/hr, O2 flor 85%, sleep pattern was noted to be predominantly N2, light sleep. PLMS 5.5/hr w/PLMS arousal index 0/hr. * 03/09/23, EEG- revealed bitemporal proximal slowing, which may indicate complex partial seizure activity. * 07/02/23-/07/04/23 72 hr EEG: Day 1: results not available- will again request Day 2: normal Day 2: Occasional intermittent left frontotemporal slowing, per report, of uncertain clinical significance. * 07/09/23, brain MRI- Scattered periventricular and deep white matter T2 FLAIR hyperintensities consistent with mild underlying microangiopathy. Patient previously advised to call [facility] to reschedule the Comprehensive neuro-psych eval as ordered. Follow-up with Hematology as scheduled ? For sleep: Continue zolpidem per Psychiatry Continue Prazosin for PTSD/nightmares. Reviewed general sleep education principles, including simple strategies to optimize sleep hygiene and sleep quality. List of sleep resources previously shared w/pt, such as the book Say Sugey to Insomnia by Dr Obed Goodson. Previous sleep med tx's- Zolpidem- not tolerated. Imipramine- not fully effective for sleep. Ramelteon 8 mg-effective. ? For stabbing headaches: Reviewed interval MRA and follow-up CTA head, Brain MRI, and [place] [facility] note- per patient, she does not need to follow-up with Neurosurgery. Continue riboflavin 400 mg daily in the morning Continue magnesium 400 mg daily at bedtime GI has discontinued Imipramine. Patient is not a candidate to do a indomethacin trial d/t history of gastric surgery. Future considerations: Pain management referral for ON block or trigger point i njections. Mirtazapine and/or melatonin ? For dizziness and balance difficulties with orthostatic component: Encouraged patient to increase fluids to at least 64 fluid oz per day She may benefit from re-evaluating her anti hypertension regimen with her PCP, as she is on lisinopril, metoprolol and prazosin- in the setting of significant weight loss since starting Zepbound therapy. Offered referral to PT, however patient states she will think about it and discuss with her partner, as she relies on him to drive. Will follow-up upon review of above and patient to follow-up in clinic in 6 months or sooner prn. Coding Level of Care Code Tele Est Pt Level 4 (27055) Diagnoses Cognitive dysfunction F09 Stabbing headache G44.85 Insomnia G47.00 Generalized anxiety disorder F41.1 PTSD (post-traumatic stress disorder) F43.10 Hallucinations R44.3
== END 2025-04-02 15:59 | disposition home or self-care (01) ==
LOC: HO.HSMS 09:14
PROVIDERS: PCP Internal Medicine; Visit Provider Nurse Practitioner Family
DX: R41.89 Other symptoms and signs involving cognitive functions and awareness (principal); G44.85 Primary stabbing headache; G47.00 Insomnia, unspecified; F41.1 Generalized anxiety disorder; F43.10 Post-traumatic stress disorder, unspecified; R44.3 Hallucinations, unspecified
CPT/HCPCS: 99214

== ENCOUNTER 2025-04-10 16:20 | Outpatient (REF) | payer OTHER, SELFPAY ==
--- NOTE | ~2025-04-10 | MM_ITS ---
EXAMINATION: MM SCREENING DIGITAL BREAST TOMOSYNTHESIS, BILATERAL CLINICAL INFORMATION: Screening. Asymptomatic. COMPARISON: Mammography: Comparison is made with available priors TECHNIQUE: Digital breast mammography with tomosynthesis is performed in both the craniocaudal and mediolateral oblique views along with computer-aided detection (CAD). FINDINGS: There are scattered areas of fibroglandular density. Bilateral reduction mammoplasty. There are no significant masses, abnormal calcifications, or other abnormalities. MM/MM tomosynthesis screening BI IMPRESSION: No mammographic evidence of malignancy. ASSESSMENT: BI-RADS Category 2: Benign RECOMMENDATION: Routine annual mammography screening. 1 year F/U This examination should not preclude the clinical evaluation of a suspicious palpable abnormality. This patient's information was entered into a reminder system with a target due date for their next mammogram. Electronically signed by: Marla Herring DO 04/14/2025 04:30 PM BALDO
--- OUTSIDE RECORDS SUMMARY | 2025-04-10 16:47 | XMS_ITS | Clinical Summary ---
Author Organization [facility] Address [address] [place] [address] Care Team Providers Care Ore Dressing Engineer Name Role Phone Demi Lr MD Primary Care Provider [phone] Allergies No known active allergies Medications acetaminophen [...] Care Team Description 03/26/2025 Telephone Bariatric Surgery [address] [phone] Chapis Ken PA 03/17/2025 Telephone Bariatric Surgery [address] [address] Chapis Ken PA 02/24/2025 Telephone Neurosurgery [place] [address] [address] Jany Toscano [place] 02/11/2025 Telephone Bariatric Surgery [address] [address] Chapis Ken PA 02/02/2025 2:12 PM EDT - 02/02/2025 11:59 PM EDT Hospital Encounter [facility] CT Scan [address] [place] [address] Occlusion and stenosis of bilateral carotid arteries Discharge Disposition: Home or Self Care 01/19/2025 5:58 PM EDT - 01/19/2025 11:59 PM EDT Hospital Encounter [facility] MRI [address] [place] [address] Occlusion and stenosis of bilateral carotid arteries Discharge Disposition: Home or Self Care 01/19/2025 5:58 PM EDT - 01/19/2025 11:59 PM EDT Hospital Encounter [facility] MRI [address] [place] [address] Occlusion and stenosis of bilateral carotid arteries Discharge Disposition: Home or Self Care 01/15/2025 Telephone Bariatric Surgery [address] [address] Chapis Ken PA from Last 3 Months Surgical History Surgery Date Site/Laterality Comments BARIATRIC SURGERY PROCEDURE: PA LAPS GSTRC RSTRICTIV PX LONGITUDINAL GASTRECTOMY OTHER SURGICAL HISTORY PROCEDURE: PA LAPS GASTRIC RESTRICTIVE PX REMOVE DEVICE & PORT BARIATRIC SURGERY PROCEDURE: PA LAPS GSTRC RSTRICTIV PX LONGITUDINAL GASTRECTOMY OTHER SURGICAL HISTORY PROCEDURE: PA GASTRIC RSTCV W/O BYP VERTICAL-BANDED GASTROPLY BREAST REDUCTION PROCEDURE: PA BREAST REDUCTION CARPAL TUNNEL RELEASE PROCEDURE: PA NEUROPLASTY &/TRANSPOS MEDIAN NRV CARPAL TUNNE SECTION PROCEDURE: PA DELIVERY ONLY HERNIA REPAIR 09/14/2021 PROCEDURE: PA REPAIR FIRST ABDOMINAL WALL HERNIA Medical History [...] on file Sexual Orientation Not on file Last Filed Vital Signs Vital Sign Reading [...] PM EST Office Visit Bariatric Surgery - [address] [address] Chapis Ken PA [facility] [place] [address] Health Maintenance Due Date Last Done Comments Breast Cancer Screening 1965 Colorectal Cancer Screening: Colonoscopy 1965 Drug Screen 1964 Non-Opioid Controlled Substance Agreement 1964 Cervical Cancer Screening: Pap Smear 1985 [...] 12:21 PM EDT PATRICIA (acute kidney injury) ([facility] V24) Elevated liver function tests CREATININE, SERUM Routine 02/16/2025 12: 21 PM EDT PATRICIA (acute kidney injury) ([facility] V24) Elevated liver function tests CT ANGIO [...] * (ABNORMAL) Creatinine (02/16/2025 12:21 PM EDT) Creatinine 1.25(H) 0.50 - 1.10 mg/dL LAB CHEMISTRY METHOD 02/16/2025 4:42 PM EDT [facility] eGFR 49(L) >=60 mL/min/1. 73m2 LAB CHEMISTRY METHOD 02/16/2025 4:42 PM EDT [facility] Comment:Calculation based on the Chronic Kidney Disease Epidemiology Collaboration (CKD-EPI) equation refit without adjustment for race. Blood Venous blood specimen / Unknown Venipuncture / Unknown 02/16/2025 12:21 PM EDT 02/16/2025 12:21 PM EDT us Chapis JUDD LAB BLOOD ORDERABLES Final R esult [facility] [address] [place] [address], * Hepatic function panel (02/16/2025 12:21 PM EDT) Total Protein 6.6 6.0 - 8.0 g/dL LAB CHEMISTRY METHOD 02/16/2025 4:42 PM EDT [facility] Albumin 3.8 3.2 - 5.0 g/dL LAB CHEMISTRY METHOD 02/16/2025 4:42 PM EDT [facility] Total Bilirubin 0.5 0.0 - 1.4 mg/dL LAB CHEMISTRY METHOD 02/16/2025 4:42 PM EDT [facility] Bilirubin, Direct 0.2 0.0 - 0.3 mg/dL LAB CHEMISTRY METHOD 02/16/2025 4:42 PM EDT [facility] Bilirubin, Indirect 0.3 0.0 - 1.1 mg/dL LAB CHEMISTRY METHOD 02/16/2025 4:42 PM EDT [facility] ALT (SGPT) 54 10 - 60 unit/L LAB CHEMISTRY METHOD 02/16/2025 4:42 PM EDT [facility] AST (SGOT) 36 10 - 42 unit/L LAB CHEMISTRY METHOD 02/16/2025 4:42 PM EDT [facility] Alkaline Phosphatase 81 42 - 121 unit/L LAB CHEMISTRY METHOD 02/16/2025 4:42 PM EDT [facility] Blood Venous blood specimen / Unknown Venipuncture / Unknown 02/16/2025 12:21 PM EDT 02/16/2025 12:21 PM EDT us Chapis JUDD LAB BLOOD ORDERABLES Final R esult [facility] [address] [place] [address], [place] [phone] * CT Angio Head/Neck wo and/or w [...] Signed Date: 02/05/2025 10:23 ET Workstation ID: [id number] Transcribed By: Self Edit Transcribed Date: 02/05/2025 09:11 ET Narrative 02/05/2025 10:23 AM EDT PROCEDURE: CT angiogram of the neck and telida of [place]ge[place] and delayed postcontrast CT of the brain. HISTORY: Stroke/TIA, assess extracranial arteries Stroke/TIA, assess intracranial arteries. COMPARISON: MRI brain dated 01/19/2025. TECHNIQUE: CT angiogram of the neck and telida of [place]gee with multiplanar reformats. Delayed postcontrast [...] The basilar artery is widely patent. Both food service substitute are widely patent. The anterior and middle [...] PROCEDURE: CT angiogram of the neck and telida of Mcge[place] and delayedpostcontrast CT of the brain. HISTORY: Stroke/TIA, assess extracranial arteries Stroke/TIA, assess intracranial arteries. COMPARISON: MRI brain dated 01/19/2025. TECHNIQUE: CT angiogram of the neck and telida of Mcgee with multiplanarreformats. Delayed postcontrast images [...] The basilar artery is widely patent. Both food service substitute are widely patent. The anterior and middle [...] Signed Date: 02/05/2025 10:23 ET Workstation ID: [id number] Transcribed By: Self Edit Transcribed Date: 02/05/2025 09:11 ET us Adal Rodriguez MD IM CT PROCEDURES Final R esult * (ABNORMAL) Iron and TIBC (02/02/2025 2:05 PM EDT) Iron 54 40 - 150 mcg/dL LAB CHEMISTRY METHOD 02/02/2025 2:51 PM EDT [facility] TIBC 241(L) 250 - 450 mcg/dL LAB CHEMISTRY METHOD 02/02/2025 2:51 PM EDT [facility] Iron Saturation 22 15 - 50 % LAB CHEMISTRY METHOD 02/02/2025 2:51 PM EDT [facility] Blood Venous blood specimen / Unknown Venipuncture / Unknown 02/02/2025 2:05 PM EDT 02/02/2025 2:12 PM EDT Chapis JUDD LAB BLOOD ORDERABLES Final R esult [facility] [address] [place] [address], [place] [phone] * Zinc (02/02/2025 2:05 PM EDT) Zinc 76 60 - 130 ug/dL 02/05/2025 11:19 AM EDT [facility] Comment: Elevated results may be due to sample collected in a non-certified trace element-free tube. This test was developed and the performance characteristics determined by [facility]. It has not been cleared or approved by the FDA. The laboratory is regulated under CLIA as qualified to perform high-complexity testing. This test is used for patient testing purposes. It should not be regarded as investigational or for research. Test performed at [facility], [address] , [place] [address] Joleen Shabazz MD, PhD - Financial Institution President Blood Venous blood specimen / Unknown Venipuncture / Unknown 02/02/2025 2:05 PM EDT 02/02/2025 2:16 PM EDT Chapis JUDD LAB BLOOD ORDERABLES Final R esult [facility] [address] [place] [address] * Selenium serum (02/02/2025 2:05 PM EDT) Selenium 138 63 - 160 mcg/L 02/06/2025 9:17 PM EDT [facility] Comment: This test was developed and its analytical performance characteristics have been determined by [facility] [place], [place]. It has not been cleared or approved by the U.S. Food and Drug Administration. This assay has been validated pursuant to the CLIA regulations and is used for clinical purposes. Test Performed by [facility], [facility], [address] [place] [address] Ozzy Daugherty M.D., Ph.D., Director of Laboratories , CLIA [id number] Blood Venous blood specimen / Unknown Venipuncture / Unknown 02/02/2025 2:05 PM EDT 02/02/2025 2:16 PM EDT Chapis JUDD LAB BLOOD ORDERABLES Final R esult Performing Organization Address City/[facility]/ZIP Co de Phone Number [facility] [address] [place] [address] * (ABNORMAL) Vitamin D 25 hydroxy (02/02/2025 2:05 PM EDT) [facility] Vit D, 25-Hydroxy 110.4(H) 30.0 - 80.0 ng/mL LAB CHEMISTRY METHOD 02/02/2025 4:02 PM EDT [facility] Blood Venous blood specimen / Unknown Venipuncture / Unknown 02/02/2025 2:05 PM EDT 02/02/2025 2:12 PM EDT Chapis JUDD LAB BLOOD ORDERABLES Final R esult [facility] [address] [place] [address], [place] [phone] * Vitamin B1 (02/02/2025 2:05 PM EDT) [facility] Vitamin B1 Whole Blood 76 38 - 122 ug/L 02/09/2025 12:26 PM EDT [facility] Comment: This test was developed and the performance characteristics determined by [facility]. It has not been cleared or approved by the FDA. The laboratory is regulated under CLIA as qualified to perform high-complexity testing. This test is used for patient testing purposes. It should not be regarded as investigational or for research. Test performed at [facility], [address] [place] [address] Joleen Shabazz MD, PhD - Financial Institution President Blood Venous blood specimen / Unknown Venipuncture / Unknown 02/02/2025 2:05 PM EDT 02/02/2025 2:16 PM EDT Chapis JUDD LAB BLOOD ORDERABLES Final R esult Performing Organization Address City/[facility] Co de Phone Number [facility] [address] [place] [address] * Vitamin B6 (02/02/2025 2:05 PM EDT) Vitamin B6 (Pyridoxine) Level 32 5 - 50 ug/L 02/06/2025 10:31 AM EDT [facility] Comment: This test was developed and the performance characteristics determined by [facility]. It has not been cleared or approved by the FDA. The laboratory is regulated under CLIA as qualified to perform high-complexity testing. This test is used for patient testing purposes. It should not be regarded as investigational or for research. Test performed at [facility], [address] [place] [address] Joleen Shabazz MD, PhD - Financial Institution President Blood Venous blood specimen / Unknown Venipuncture / Unknown 02/02/2025 2:05 PM EDT 02/02/2025 2:16 PM EDT Chapis Alma JUDD LAB BLOOD ORDERABLES Final R esult Performing Organization Address City/[facility]/ZIP Co de Phone Number [facility] [address] [place] [address] * (ABNORMAL) Folate (02/02/2025 2:05 PM EDT) [facility] Folate >20.0(H) 2.8 - 17.0 ng/ml LAB CHEMISTRY METHOD 02/02/2025 3:14 PM EDT [facility] Blood Venous blood specimen / Unknown Venipuncture / Unknown 02/02/2025 2:05 PM EDT 02/02/2025 2:12 PM EDT Chapis JUDD LAB BLOOD ORDERABLES Final R esult Performing Organization Address City/[facility]/ZIP Co de Phone Number [facility] [address] [place] [address], [place] [phone] * (ABNORMAL) Vitamin B12 (02/02/2025 2:05 PM EDT) [facility] Vitamin B-12 1,273(H) 250 - 900 pcg/mL LAB CHEMISTRY METHOD 02/02/2025 3:14 PM EDT [facility] Blood Venous blood specimen / Unknown Venipuncture / Unknown 02/02/2025 2:05 PM EDT 02/02/2025 2:12 PM EDT Chapis JUDD LAB BLOOD ORDERABLES Final R esult Performing Organization Address City/[facility]/ZIP Co de Phone Number [facility] [address] [place] [address], [place] [phone] * (ABNORMAL) Comprehensive metabolic panel (02/02/2025 2:05 PM EDT) [facility] Sodium 141 133 - 145 mmol/L LAB CHEMISTRY METHOD 02/02/2025 2:51 PM EDT [facility] Potassium 3.9 3.5 - 5.5 mmol/L LAB CHEMISTRY METHOD 02/02/2025 2:51 PM EDT [facility] Chloride 105 96 - 110 mmol/L LAB CHEMISTRY METHOD 02/02/2025 2:51 PM [facility] CO2 26 21 - 32 mmol/L LAB CHEMISTRY METHOD 02/02/2025 2:51 PM [facility] Anion Gap 10 3 - 11 LAB CHEMISTRY METHOD 02/02/2025 2:51 PM [facility] Glucose 83 70 - 100 mg/dL LAB CHEMISTRY METHOD 02/02/2025 2:51 PM [facility] BUN 11 5 - 25 mg/dL LAB CHEMISTRY METHOD 02/02/2025 2:51 PM [facility] Creatinine 1.26(H) 0.50 - 1.10 mg/dL LAB CHEMISTRY METHOD 02/02/2025 2:51 PM [facility] eGFR 49(L) >=60 mL/min/1. 73m2 LAB CHEMISTRY METHOD 02/02/2025 2:51 PM [facility] Comment:Calculation based on the Chronic Kidney Disease Epidemiology Collaboration (CKD-EPI) equation refit without adjustment for race. BUN/Creatinine Ratio 8.7 LAB CHEMISTRY METHOD 02/02/2025 2:51 PM [facility] Calcium 9.6 8.5 - 10.5 mg/dL LAB CHEMISTRY METHOD 02/02/2025 2:51 PM [facility] AST (SGOT) 52(H) 10 - 42 unit/L LAB CHEMISTRY METHOD 02/02/2025 2:51 PM [facility] ALT (SGPT) 99(H) 10 - 60 unit/L LAB CHEMISTRY METHOD 02/02/2025 2:51 PM [facility] Alkaline Phosphatase 72 42 - 121 unit/L LAB CHEMISTRY METHOD 02/02/2025 2:51 PM [facility] Total Protein 6.4 6.0 - 8.0 g/dL LAB CHEMISTRY METHOD 02/02/2025 2:51 PM EDT [facility] Albumin 3.9 3.2 - 5.0 g/dL LAB CHEMISTRY METHOD 02/02/2025 2:51 PM EDT [facility] Total Bilirubin 0.5 0.0 - 1.4 mg/dL LAB CHEMISTRY METHOD 02/02/2025 2:51 PM EDT [facility] Blood Venous blood specimen / Unknown Venipuncture / Unknown 02/02/2025 2:05 PM EDT 02/02/2025 2:12 PM EDT us Chapis JUDD LAB BLOOD ORDERABLES Final R esult [facility] [address] [place] [address], [place] [phone] * MR Cervical Spine wo Contrast (01/19/2025 [...] Signed Date: 01/21/2025 14:52 ET Workstation ID: [id number] Transcribed By: Self Edit Transcribed Date: 01/21/2025 [...] Degenerative cervical facet arthritis most pronounced at [id number]. Cervical cord is normal in signal and [...] Signed Date: 01/21/2025 14:52 ET Workstation ID: [id number] Transcribed By: Self Edit Transcribed Date: 01/21/2025 14:50 ET us Adal Idris Rodriguez MD [facility] MRI PROCEDURES Final Result * MR Brain [...] Signed Date: 01/21/2025 12:56 ET Workstation ID: [id number] Transcribed By: Self Edit Transcribed Date: 01/21/2025 [...] Signed Date: 01/21/2025 12:56 ET Workstation ID: [id number] Transcribed By: Self Edit Transcribed Date: 01/21/2025 12:10 ET Adal Rodriguez MD IMG MRI PROCEDURES Final Result from Last 3 Months Insurance [employer] MEDICARE Member Subscriber Plan / Payer (Ef fective 2013-Present) Name:HANNAH BANKS Relation to Subscriber:Self Name:Hannah Banks Payer ID:[id number] Group ID:[id number] Type:Not on file Address: [address] [address] Care Teams Ore Dressing Engineer Relationship Specialty Start Date End Date Demi Lr MD [address] [place] [address] [address] [facility] Internal Medicine [place], [place] [id number] PCP - General Internal Medicine 07/01/20
--- OUTSIDE RECORDS SUMMARY | 2025-04-10 16:47 | XMS_ITS | Encounter Summary ---
Author Organization [facility] Address [address] [place] [address] Care Team Providers Care Power And Recovery Superintendent Name Role Phone Demi Lr MD Primary Care Provider [phone] Reason for Visit * Reason Onset Date Comments prior auth 03/26/2025 Encounter Details Date Type Department Care Team ([facility] st Contact Info) Description 03/26/2025 Telephone Bariatric Surgery - [address] [place] [address] Chapis Ken PA [address] [place] [phone] Social History Tobacco Use Types Packs/Day [...] as of this encounter Progress Notes * Sally Santos - 04/08/2025 11:03 AM EST Patient will be coming in for a weight check for her PA. * John Branch MA - 04/02/2025 11:11 AM EST We have to send via Right[employer]ax. * Sally Santos - 04/02/2025 10:07 AM EST Patient is requesting follow up on her prior auth for zepbound - please contact patient. * Salud Leyva - 03/26/2025 1:17 PM EST Please send a PA to [facility] for Zepbound 12.5 mg Pts last dose was beginning of January documented in this encounter Plan of Treatment Upcoming Encounters Date Type Department Care Team (Late st Contact Info) Description 05/11/2025 3:15 PM EST Office Visit Bariatric Surgery - [address] [place] [phone] Chapis Ken PA [address] [place] [phone] documented as of this encounter Visit Diagnoses Not on filedocumented in this encounter Care Teams Power And Recovery Superintendent Relationship Specialty Start Date End Date Demi Lr MD [address] [place] [address] [address] [facility] [place] [address] PCP - General Internal Medicine 07/01/20 documented as of this encounter
--- OUTSIDE RECORDS SUMMARY | 2025-04-10 16:47 | XMS_ITS | Patient Health Record ---
Author Organization [facility] Address [address] [facility] [address] [place] [address] Support Name Relationship Address Phone Hannah Snell Guarantor Unknown [phone] Allergies No Known Allergies Reason For Referral [...] W/U Status Risk Notes Problem Mixed hyperlipidemia (015347745) Mixed hyperlipidemia (E78.2) Active confirmed Problem Moderate recurrent major depression (05298368) Major depressive disorder, recurrent, moderate (F33.1) Active confirmed Problem Generalized anxiety disorder (40226117) Generalized anxiety disorder (F41.1) Active confirmed Problem Post-traumatic stress disorder (18631241) Post-traumatic stress disorder, unspecified (F43.10) Active confirmed Problem Insomnia (668893490) Insomnia, unspecified (G47.00) Active confirmed Problem Essential hypertension (00149201) Essential (primary) hypertension (I10) Active confirmed Problem Body mass index 30.00 to 34.99 (916793491009938) Body mass index (BMI) 31.0-31.9, adult (Z68.31) Active confirmed Problem Body mass index 30.00 to 34.99 (414344276895919) Body mass index (BMI) 33.0-33.9, adult (Z68.33) Active confirmed Problem Body mass index 40+ - morbidly obese (393473351) Body mass index (BMI) 50-59.9 , adult (Z68.43) Active confirmed Problem Obese class II (246961707113207) Body mass index [BMI] 35.0-35.9, adult (Z68.35) Active confirmed Plan Of Treatment No Information Insurance Providers Payer Name Payer Address Payer Phone Subscriber Number Group Number Insured Name Patient Relationship to Insured Coverage Start Date Coverage End Date [facility] [address] [address] [place] [address] [phone] [id number] Hannah Snell Self - patient is the insured Medical (General) History Medical History History ICD Code anxiety/depression/PTSD, psychiatrist Dr Gregg Abbott, therapist hypertension hyperlipidemia osteoarthritis acid reflux Surgical History Surgery Date(Month/Year) gastric sleeve, 2017 x2 carpal tunnel, right hand breast reduction abdominoplasty Lap band 2010 and she was 260 pound and she dropped to 130 pounds
== END 2025-04-10 16:21 | disposition home or self-care (01) ==
LOC: HO.MAMMO 16:20
PROVIDERS: PCP Internal Medicine; Visit Provider Internal Medicine
DX: Z12.31 Encounter for screening mammogram for malignant neoplasm of breast (principal)
CPT/HCPCS: 77063; 77067

== ENCOUNTER → 2025-04-10 16:30 | Outpatient (BNV) | payer OTHER, SELFPAY | PROVIDERS: PCP Internal Medicine; Visit Provider Internal Medicine | DX: Z12.31 Encounter for screening mammogram for malignant neoplasm of breast (principal) | CPT/HCPCS: 77063; 77067 ==